=== PATIENT | female | born 1980 | race Caucasian/White ===

== ENCOUNTER 2016-12-07 18:11 | Emergency (ER) | payer OTHER ==
[~2016-12-07] VITALS: Ht 170.2 cm; Wt 99.4 kg
[~2016-12-07 18:11] MED LIST: ASPI-390 PO; FLXHP PO; OXYC-57 PO; PRZ/40 PO; WLLSR150 PO
[2016-12-07 18:21] VITALS: TEMP 37; Ht 170.2 cm; Wt 99.4 kg
[2016-12-07] MEDS ORDERED: PROCHLORPERAZINE 5 MG/ML 2 ML VIAL IV STA (19:35)
[2016-12-07] MEDS ORDERED: DiphenhydrAMINE HCL 50 MG/ML VIAL IV STA (19:35)
[2016-12-07] MEDS ORDERED: KETOROLAC TROMETHAMINE 30 MG/ML VIAL IV STA (19:35)
[2016-12-07] MEDS ORDERED: SODIUM CHLORIDE 0.9% 1000ML 1,000 ML IV ONE (19:45)
[2016-12-07] MEDS ORDERED: PANTOprazole INJ 40 MG in SYRINGE 0 ML IV ONE (19:45)
[2016-12-07] MEDS ORDERED: GI COCKTAIL PO ONE (19:45)
[2016-12-07 20:03] LABS: BASO % 0.5 %; BASO ABS # 0.05 K/uL (0-0.2); COMPLETE YES; HEMATOCRIT 37.8 % (37-47); IG% 0.4 %; LYMPH % 26.7 %; LYMPH ABS # 2.93 K/uL (1.2-3.4); MEAN CELL VOLUME 84.4 fL (80-100); MEAN CORPUSCULAR HEMOGLOBIN 27.5 pg (25-34); MEAN CORPUSCULAR HGB CONC 32.5 g/dl (32-36); MEAN PLATELET VOLUME 9.8 fL (7.4-10.4); MONO % 8.4 %; PLATELET COUNT 281 K/uL (130-400); RED BLOOD COUNT 4.48 M/uL (4.2-5.4); WHITE BLOOD COUNT 10.99 K/uL (4.8-10.8)
[2016-12-07 20:16] LABS: URINE APPEARANCE CLEAR (CLEAR); URINE BILIRUBIN NEG (NEG); URINE COLOR YELLOW; URINE NITRITE NEG (NEG); URINE PH 5.5 (4.5-7.5); URINE SPECIFIC GRAVITY 1.023 (1.000-1.030); UROBILINOGEN NEG (NEG); ZZUR CULT IF INDIC CLEAN CATCH NO
[2016-12-07 20:18] LABS: MANUAL MICROSCOPIC REQUIRED? NO; REVIEW REQ? NO
[2016-12-07 20:21] LABS: BUN/CREATININE RATIO 10.4 (10-20); CALCIUM 8.6 mg/dl (8.5-10.1); CREATININE 0.99 mg/dl (0.60-1.20); MAGNESIUM 2.3 mg/dl (1.8-2.4); POTASSIUM 3.5 mmol/L (3.5-5.1)
[2016-12-07 20:32] LABS: THYROID STIMULATING HORMONE 2.54 uIu/ml (0.300-4.500)
[2016-12-07] MEDS ORDERED: LIDOCAINE HCL 2% VISC SOLN 20 ML UDC ONE (20:45)
[2016-12-07] MEDS ORDERED: ALUMINUM/MAGNESIUM SUSP 30 ML UDC ONE (20:45)
[2016-12-07 20:46] LABS: BENZODIAZEPINE, URINE NEG (NEG); COCAINE,URINE NEG (NEG); PHENCYCLIDINE, URINE NEG (NEG)
--- NOTE | 2016-12-07 22:00 | DIAGNOSTIC IMAGING REPORT ---
ULTRASOUND RIGHT UPPER QUADRANT ABDOMEN CLINICAL HISTORY: Right upper quadrant and epigastric abdominal pain. COMPARISON STUDY: Abdominal CT dated 08/08/2016. TECHNIQUE: Real-time, grayscale, and color flow sonography of the right upper quadrant of the abdomen was performed. Images are reviewed in the transverse and longitudinal planes. FINDINGS: Liver: The liver is normal in size and echotexture. There is no intrahepatic biliary ductal dilatation. The main portal vein is patent. Gallbladder: The gallbladder is surgically absent. The common bile duct measures up to 0.4 cm in diameter. Pancreas: Visualized portions of the pancreatic head and body are normal in appearance. The splenic vein is patent. Right kidney: Survey images of the right kidney demonstrate normal size and echotexture. There is no hydronephrosis. Ascites: None. IMPRESSION: Unremarkable sonographic assessment of the right upper quadrant noting status post cholecystectomy. Electronically signed by: Robinson Carpenter M.D. 12/07/2016 9:58 PM Dictated Date/Time: 12/07/2016 9:57 PM
--- NOTE | 2016-12-07 22:08 | DIAGNOSTIC IMAGING REPORT ---
PA CHEST WITH ABDOMINAL SERIES CLINICAL HISTORY: Epigastric abdominal pain. FINDINGS: A PA chest radiograph is compared to study dated 10/06/2016. The cardiomediastinal silhouette is unremarkable. The lungs and pleural spaces are clear. No pneumothorax is seen. The bony thorax is grossly intact. Supine and erect abdominal radiographs are correlated with abdominal CT dated 08/08/2016. Cholecystectomy clips are seen in the right upper quadrant. There is a nonobstructed abdominal bowel gas pattern noting moderate colonic fecal retention. Note peritoneal free air is seen. There is no radiographic evidence of nephrolithiasis. Calcified pelvic phleboliths are similar to previous. Lumbosacral spine and bony pelvis appear intact. Fusion hardware seen at L5-S1. IMPRESSION: 1. No active disease in the chest. 2. Nonobstructed abdominal bowel gas pattern noting moderate colonic fecal retention. Electronically signed by: Robinson Carpenter M.D. 12/07/2016 10:05 PM Dictated Date/Time: 12/07/2016 10:04 PM
[2016-12-07 22:11] VITALS: BP 117/70; PULSE 63; O2SAT 97
--- NOTE | 2016-12-07 22:45 | EMERGENCY ROOM VISIT NOTE ---
History First contact with patient: 19:28 Chief Complaint: ABDOMINAL PAIN Stated Complaint: STOMACH PAIN W/ PAIN OUT THROUGH BACK Nursing Triage Summary: Patient ambulatory to triage, states "I have really bad pain in my stomach piercing through my back on the right side. My stomach jeong really bad. I threw up bile this morning." History of Present Illness The patient is a 36 year old female who presents to the Emergency Room with complaints of epigastric and right upper quadrant abdominal pain worsening over the past day. The patient states that she had one episode of vomitus this morning that was mostly bile-like fluid. The patient has a long-standing history of abdominal pain, and does follow with gastroenterology. She states that she had an upper endoscopy in the past few weeks that did show some gastritis. She is on Prilosec at home and took several doses of Carafate today without relief of symptoms. She has not had fever or chills. No chest pain, chest tightness, or shortness of breath. The patient is well-known to the emergency department for chronic pain related complaints. She rates her current discomfort a 9/10. Review of Systems More than 10 systems were reviewed and otherwise negative with the exception of history of present illness. Past Medical/Surgical History Medical Problems: (1) Abdominal pain (2) Abnormal uterine bleeding (3) Degenerative disc disease, lumbar (4) DUB (dysfunctional uterine bleeding) (5) History of - pulmonary embolus (6) Left knee surgery (7) Palpitations (8) Postoperative pain (9) Temporomandibular joint disorder Surgical Problems: (1) History of cholecystectomy (2) S/P laparoscopic hysterectomy Family History Cancer Diabetes mellitus Gallbladder disease Heart disease Hypertension Kidney disease Kidney stones Lung disease Social History Smoking Status: Never Smoker Alcohol Use: occasionally Drug Use: none Marital Status: Housing Status: lives with family Occupation Status: employed Current/Historical Medications Scheduled Omeprazole (Prilosec), 40 MG PO DAILY Sucralfate (Carafate), 10 ML PO UD Scheduled PRN Hydrocodone/Acetaminophen 5MG/325MG ([place] 5MG/325MG), 1 TABLET PO Q6H PRN for Pain Allergies Coded Allergies: Tramadol (Verified Allergy, Mild, DID NOT HELP WITH PAIN RELIEF, 12/07/16) Morphine (Verified Adverse Reaction, Unknown, HEADACHE, STIFF NECK, ) Physical Exam Vital Signs Date Time Temp Pulse Resp B/P Pulse Ox O2 Delivery O2 Flow Rate FiO2 12/07/16 22:11 63 14 117/70 97 Room Air 12/07/16 21:00 66 16 104/75 97 Room Air 12/07/16 18:21 37.0 67 18 144/81 98 Room Air Pain Rating (0-10): 2.0 Physical Exam VITALS: Vitals are noted on the nurse's note and reviewed by myself. Vital signs stable. GENERAL: Well-developed, well-nourished, white female, who is in no acute distress and resting comfortably. Patient is cooperative with the examination. HEAD: Normocephalic atraumatic. HEART: Regular rate and rhythm without murmurs gallops or rubs. LUNGS: Clear to auscultation bilaterally without wheezes, rales or rhonchi. No retractions or accessory muscle use. ABDOMEN: Positive normal bowel sounds x 4. Firm pressure while auscultating does not elicit a tenderness response from the patient. Soft palpation causes grimacing and withdrawal from palpation particularly in the epigastrium. No lower abdominal tenderness. No CVA tenderness. MUSCULOSKELETAL: No muscle atrophy, erythema, or edema noted. Full range of motion without joint tenderness in all extremities. No tenderness to palpation. Medical Decision & Procedures ER Provider Diagnostic Interpretation: ULTRASOUND RIGHT UPPER QUADRANT ABDOMEN CLINICAL HISTORY: Right upper quadrant and epigastric abdominal pain. COMPARISON STUDY: Abdominal CT dated 08/08/2016. TECHNIQUE: Real-time, grayscale, and color flow sonography of the right upper quadrant of the abdomen was performed. Images are reviewed in the transverse and longitudinal planes. FINDINGS: Liver: The liver is normal in size and echotexture. There is no intrahepatic biliary ductal dilatation. The main portal vein is patent. Gallbladder: The gallbladder is surgically absent. The common bile duct measures up to 0.4 cm in diameter. Pancreas: Visualized portions of the pancreatic head and body are normal in appearance. The splenic vein is patent. Right kidney: Survey images of the right kidney demonstrate normal size and echotexture. There is no hydronephrosis. Ascites: None. IMPRESSION: Unremarkable sonographic assessment of the right upper quadrant noting status post cholecystectomy. PA CHEST WITH ABDOMINAL SERIES CLINICAL HISTORY: Epigastric abdominal pain. FINDINGS: A PA chest radiograph is compared to study dated 10/06/2016. The cardiomediastinal silhouette is unremarkable. The lungs and pleural spaces are clear. No pneumothorax is seen. The bony thorax is grossly intact. Supine and erect abdominal radiographs are correlated with abdominal CT dated 08/08/2016. Cholecystectomy clips are seen in the right upper quadrant. There is a nonobstructed abdominal bowel gas pattern noting moderate colonic fecal retention. Note peritoneal free air is seen. There is no radiographic evidence of nephrolithiasis. Calcified pelvic phleboliths are similar to previous. Lumbosacral spine and bony pelvis appear intact. Fusion hardware seen at L5-S1. IMPRESSION: 1. No active disease in the chest. 2. Nonobstructed abdominal bowel gas pattern noting moderate colonic fecal retention. Laboratory Results 12/07/16 19:47 Red Blood Count 4.48, Mean Corpuscular Volume 84.4, Mean Corpuscular Hemoglobin 27.5, Mean Corpuscular Hemoglobin Concent 32.5, Mean Platelet Volume 9.8, Neutrophils (%) (Auto) 62.0, Lymphocytes (%) (Auto) 26.7, Monocytes (%) (Auto) 8.4, Eosinophils (%) (Auto) 2.0, Basophils (%) (Auto) 0.5, Neutrophils # (Auto) 6.83, Lymphocytes # (Auto) 2.93, Monocytes # (Auto) 0.92, Eosinophils # (Auto) 0.22, Basophils # (Auto) 0.05 12/07/16 19:47 Test 12/07/16 19:45 12/07/16 19:47 Urine Color YELLOW Urine Appearance CLEAR (CLEAR) Urine pH 5.5 (4.5-7.5) Urine Specific [place] 1.023 (1.000-1.030) Urine Protein NEG (NEG) Urine Glucose (UA) NEG (NEG) Urine Ketones NEG (NEG) Urine Occult Blood NEG (NEG) Urine Nitrite NEG (NEG) Urine Bilirubin NEG (NEG) Urine Urobilinogen NEG (NEG) Urine Leukocyte Esterase NEG (NEG) Urine Test NEG (NEG) Urine Opiates Screen POS (NEG) Urine Methadone, Qualitative NEG (NEG) Urine Barbiturates NEG (NEG) Urine Phencyclidine (PCP) Level NEG (NEG) Ur Amphetamine/Methamphetamine NEG (NEG) MDMA (Ecstasy) Screen POS (NEG) Urine Benzodiazepines Screen NEG (NEG) Urine Cocaine Metabolite NEG (NEG) Urine Marijuana (THC) NEG (NEG) White Blood Count 10.99 K/uL (4.8-10.8) Red Blood Count 4.48 M/uL (4.2-5.4) Hemoglobin 12.3 g/dL (12.0-16.0) Hematocrit 37.8 % (37-47) Mean Corpuscular Volume 84.4 fL (80-100) Mean Corpuscular Hemoglobin 27.5 pg (25-34) Mean Corpuscular Hemoglobin Concent 32.5 g/dl (32-36) Platelet Count 281 K/uL (130-400) Mean Platelet Volume 9.8 fL (7.4-10.4) Neutrophils (%) (Auto) 62.0 % Lymphocytes (%) (Auto) 26.7 % Monocytes (%) (Auto) 8.4 % Eosinophils (%) (Auto) 2.0 % Basophils (%) (Auto) 0.5 % Neutrophils # (Auto) 6.83 K/uL (1.4-6.5) Lymphocytes # (Auto) 2.93 K/uL (1.2-3.4) Monocytes # (Auto) 0.92 K/uL (0.11-0.59) Eosinophils # (Auto) 0.22 K/uL (0-0.5) Basophils # (Auto) 0.05 K/uL (0-0.2) RDW Standard Deviation 39.7 fL (36.4-46.3) RDW Coefficient of Variation 13.1 % (11.5-14.5) Immature Granulocyte % (Auto) 0.4 % Immature Granulocyte # (Auto) 0.04 K/uL (0.00-0.02) Anion Gap 9.0 mmol/L (3-11) Est Creatinine Clear Calc Drug Dose 93.3 ml/min Estimated GFR () 83.8 Estimated GFR (Non- 72.3 BUN/Creatinine Ratio 10.4 (10-20) Calcium Level 8.6 mg/dl (8.5-10.1) Magnesium Level 2.3 mg/dl (1.8-2.4) Total Bilirubin 0.6 mg/dl (0.2-1) Aspartate Amino Transf (AST/SGOT) 18 U/L (15-37) Alanine Aminotransferase (ALT/SGPT) 42 U/L (12-78) Alkaline Phosphatase 76 U/L (45-117) Total Protein 7.5 gm/dl (6.4-8.2) Albumin 3.8 gm/dl (3.4-5.0) Globulin 3.7 gm/dl (2.5-4.0) Albumin/Globulin Ratio 1.0 (0.9-2) Lipase 148 U/L (73-393) Thyroid Stimulating Hormone (TSH) 2.540 uIu/ml (0.300-4.500) Ethyl Alcohol mg/dL < 3.0 mg/dl (0-3) Medications Administered Medications (Trade) Dose Ordered Sig/Diane Route Start Time Stop Time Status Last Admin Dose Admin Sodium Chloride (Nss 1000ml) 1,000 ml @ 999 mls/hr Q1H1M ONCE IV 12/07/16 19:45 12/07/16 20:45 DC 12/07/16 20:53 999 MLS/HR Ketorolac Tromethamine (Toradol Inj) 30 mg NOW STAT IV 12/07/16 19:35 12/07/16 19:39 DC 12/07/16 20:54 30 MG Diphenhydramine HCl (Benadryl Inj) 50 mg NOW STAT IV 12/07/16 19:35 12/07/16 19:39 DC 12/07/16 20:54 50 MG Prochlorperazine Edisylate 10 mg 10 mg NOW STAT IV 12/07/16 19:35 12/07/16 19:39 DC 12/07/16 20:53 10 MG Pantoprazole Sodium/Syringe (Protonix Inj/ Syringe) 10 ml @ 5 mls/min NOW ONCE IV 12/07/16 19:45 12/07/16 19:46 DC 12/07/16 21:06 5 MLS/MIN Al Hydroxide/Mg Hydroxide (Maalox Susp) 30 ml STK-MED ONCE .ROUTE 12/07/16 20:45 12/07/16 20:47 DC 12/07/16 20:52 30 ML Lidocaine HCl (Viscous Lidocaine 2% Soln) 20 ml STK-MED ONCE .ROUTE 12/07/16 20:45 12/07/16 20:47 DC 12/07/16 20:52 20 ML ED Course Physical exam and history were performed. Nursing notes and EMR were reviewed. Patient appears to have epigastric and right upper quadrant abdominal tenderness for the past one day. The patient has a history of chronic abdominal pain. She is driving from [place] to be seen at this facility, and her exam is concerning for malingering. IV access was established and labs were obtained. The patient was hydrated with normal saline. She was given 30 mg IV Toradol, 10 mg IV Compazine, 40 mg IV Protonix, and 50 mg IV Benadryl. She was also given a GI cocktail. X-rays and Ultrasound were ordered. CT scan was considered, however the patient has had several CT scans over the past few years and this was deferred pending further evaluation. The patient was reevaluated multiple times throughout the course of her stay. She did not have worsening of her symptoms while under our care, and felt significantly improved after medication. Her blood work does not show a significantly elevated white blood cell count, anemia, bandemia, or gross electrolyte imbalance. Lipase and transaminases are nondiagnostic. Urinalysis without obvious signs of infection. Her drug of abuse screen was positive for opioids and ecstasy with confirmation pending. The ultrasound does not show evidence of acute findings. X-ray is without obstructive process, but does show constipation. Clinically this is felt to be one of the primary contributors to the patient's discomfort. CT scan was not felt necessary as the patient does not appear to have a surgical abdomen. She does not appear toxic, and is stable for discharge home. The patient will need to follow-up with GI for further care and management. She was otherwise invited back to the ER with any new, worsening, or concerning symptoms. She voiced understanding and rated her discomfort a 2/10 at the time of departure. The chart was completed utilizing [email or web address] Speech Voice Recognition Software. Grammatical errors, random word insertions, pronoun errors, and incomplete sentences are an occasional consequence of this system due to software limitations, ambient noise, and hardware issues. Any formal questions or concerns about the content, text, or information contained within the body of this dictation should be directly addressed to the provider for clarification. . Medical Decision Differential diagnosis: Etiologies such as appendicitis, diverticulitis, PUD, biliary pathology, UTI, pancreatitis, obstruction, mesenteric ischemia, aortic pathology, infections, inflammatory bowel disease, renal colic, as well as others were entertained. Impression Primary Impression: Upper abdominal pain Additional Impression: Constipation Departure Information Dispostion Home / Self-Care Condition GOOD Forms Call Back Authorization, HOME CARE DOCUMENTATION FORM, IMPORTANT VISIT INFORMATION Patient Instructions [facility] Additional Instructions You were seen and evaluated today on an emergency basis only. This is not a substitute for, or an effort to provide, complete comprehensive medical care. It is not possible to recognize and treat all injuries or illnesses in a single emergency department visit. For this reason it is recommended that you followup with your scientific helper for ongoing care and evaluation. Continue your at-home medications as prescribed. Use MiraLAX daily to help with passing of your stool. You may also wish to use [id number] Colace. Together these will help with stool transit. You are welcome to return to the emergency department anytime with new, worsening, or concerning symptoms. Problem Qualifiers
[2016-12-10 16:33] LABS: COD UR NEGATIVE NG/ML (CUTOFF=50); HYDROCOD UR 1480 NG/ML (CUTOFF=50); HYDROMOR UR NEGATIVE NG/ML (CUTOFF=50); MORPHINE UR NEGATIVE NG/ML (CUTOFF=50); NORHYDROCODONE CONF UR 3150 NG/ML (CUTOFF=50); OXYMORPH UR NEGATIVE NG/ML (CUTOFF=50)
[2017-02-22] MEDS ORDERED: IRON PO (12:47)
[2017-02-22] MEDS ORDERED: FLUO40CA8 PO (12:47)
[2017-02-22] MEDS ORDERED: BUPR-79 PO (12:47)
[2017-02-25] MEDS ORDERED: KETO10TA PO (11:08)
[2017-02-25] MEDS ORDERED: OXYC-57 PO (11:08)
[2017-05-17] MEDS ORDERED: FERR325T PO (00:02)
== END 2016-12-07 22:25 | disposition home or self-care (01) ==
LOC: C.EDB 18:12 → C.EDA 22:25
DX: R10.10 Upper abdominal pain, unspecified (principal); K59.00 Constipation, unspecified; Z86.711 Personal history of pulmonary embolism; M51.36 Other intervertebral disc degeneration, lumbar region; N93.8 Other specified abnormal uterine and vaginal bleeding; Z79.899 Other long term (current) drug therapy

== ENCOUNTER 2017-01-05 10:21 | Emergency (ER) | payer OTHER ==
[~2017-01-05] VITALS: Ht 170.2 cm; Wt 102.1 kg
[2017-01-05 10:26] VITALS: Ht 170.2 cm; Wt 102.1 kg
[2017-01-05 11:19] LABS: BASO % 0.9 %; BASO ABS # 0.06 K/uL (0-0.2); COMPLETE YES; EOS % 4.7 %; IG% 0.3 %; LYMPH % 41.2 %; MEAN CELL VOLUME 81.8 fL (80-100); MEAN CORPUSCULAR HGB CONC 33.1 g/dl (32-36); MEAN PLATELET VOLUME 9.8 fL (7.4-10.4); MONO % 10.5 %; NEUT % 42.4 %; PLATELET COUNT 268 K/uL (130-400); WHITE BLOOD COUNT 6.56 K/uL (4.8-10.8)
[2017-01-05 11:23] LABS: URINE APPEARANCE CLOUDY (CLEAR); URINE BILIRUBIN NEG (NEG); URINE COLOR YELLOW; URINE EPITHELIAL CELL AUTO >30 /lpf (0-5); URINE NITRITE NEG (NEG); URINE SPECIFIC GRAVITY 1.029 (1.000-1.030); UROBILINOGEN NEG (NEG); ZZUR CULT IF INDIC CLEAN CATCH NO
[2017-01-05 11:25] LABS: MANUAL MICROSCOPIC REQUIRED? NO; REVIEW REQ? NO
[2017-01-05 11:36] LABS: BUN/CREATININE RATIO 15.4 (10-20); CALCIUM 8.4 mg/dl (8.5-10.1); CREATININE 0.97 mg/dl (0.60-1.20); POTASSIUM 3.7 mmol/L (3.5-5.1)
[2017-01-05 11:39] LABS: ALB/GLOB RATIO 0.9 (0.9-2)
[2017-01-05] MEDS ORDERED: OPTIRAY 320 IV PRN (12:30)
--- NOTE | 2017-01-05 12:39 | DIAGNOSTIC IMAGING REPORT ---
CT ANGIOGRAPHY OF THE CHEST, PULMONARY EMBOLUS PROTOCOL CLINICAL HISTORY: Chest and back pain. COMPARISON STUDY: Chest CT May 12, 2016 and chest radiograph December 07, 2016. TECHNIQUE: Following IV administration of 117 mL of Optiray-[id number], helical axial images of the chest were obtained utilizing the pulmonary embolus protocol. Maximal intensity projections and sagittal and coronal reformats were viewed on an independent 3D workstation. IV contrast was administered without complication. CT DOSE: 536.09 mGy.cm FINDINGS: No pulmonary emboli are identified. There is no evidence of thoracic aortic dissection. The size of the heart is at the upper limits of normal. There is no pericardial effusion. There are no enlarged thoracic lymph nodes. There are trace bilateral pleural effusions. The central airways are patent. There is no consolidation to suggest pneumonia. The gallbladder surgically absent. Visualized portions of the upper abdomen are unremarkable. IMPRESSION: 1. No pulmonary emboli identified. 2. Trace bilateral pleural effusions. Electronically signed by: Xavier Hill M.D. 01/05/2017 12:38 PM Dictated Date/Time: 01/05/2017 12:33 PM
[2017-01-05 12:41] LABS: INR 0.9 (0.9-1.1)
[2017-01-05 12:57] VITALS: TEMP 36.8
[2017-01-05] MEDS ORDERED: LIDOCAINE HCL 2% VISC SOLN 20 ML UDC PO STA (13:13)
[2017-01-05] MEDS ORDERED: ALUMINUM/MAGNESIUM SUSP 30 ML UDC PO STA (13:13)
--- NOTE | 2017-01-05 13:48 | DIAGNOSTIC IMAGING REPORT ---
ULTRASOUND VENOUS DOPPLER LWR EXT BILA CLINICAL HISTORY: Bilateral lower leg pain. COMPARISON STUDY: 09/13/2015 FINDINGS: Real-time and color flow Doppler imaging were performed. Flow was seen within the femoral, popliteal and calf veins with no intraluminal thrombus demonstrated. The saphenous vein is patent. IMPRESSION: No evidence of lower extremity DVT. Electronically signed by: Asaf Patino M.D. 01/05/2017 1:47 PM Dictated Date/Time: 01/05/2017 1:47 PM
[2017-01-05 14:42] VITALS: BP 122/70; PULSE 63; O2SAT 98
--- NOTE | 2017-01-05 18:56 | EMERGENCY ROOM VISIT NOTE ---
History Report prepared by Leeleeiblina: Pattie Aguirre Under the Supervision of: Dr. Wayne Goldberg M.D. First contact with patient: 11:59 Chief Complaint: ABDOMINAL PAIN Stated Complaint: FLUTTERING CHEST, HEADACHE, STOMACH PAIN Nursing Triage Summary: Pt reports diffuse abd pain and fluttering chest. Pt states seen by Dr. Stanley today for f/u for "inflammed stomach" and had tenderness on left side of abd when palpated. Pt states fluttering in chest for a couple days. Reports hx of PE's. Intermittent SOB and lightheadedness. Also reports h/a with "sharp pains" that started yesterday. History of Present Illness The patient is a 36 year old female who presents to the Emergency Room with complaints of intermittent chest heaviness over the past several days. Since then, she has also noticed shortness of breath, heart palpitations that she describes as fluttering, and sharp pain in the middle of her back that radiates outwards. She also complains of some lower leg pain over the past week or so. She has not noticed any leg swelling. She notes that she has been feeling very tired recently and has been sleeping about 14 hours a day. The patient has a history of PEs in 2013 and states that her current symptoms feel similar to when she was diagnosed with PEs. She is unsure of the cause of the blood clots but states that she was taken off of control pills at that time. The patient had a hysterectomy over a year ago. The patient has a history of chronic abdominal pain and followed up with Dr. Stanley today. She had some soreness to the left side of her abdomen and he was concerned about her kidney or possible adhesions from her previous abdominal surgeries. She notes that she has had some nausea and diarrhea for the past couple of days. She is currently on Protonix and was recently put on Bentyl. Denies recent falls/injuries, fever , vomiting, black or bloody stool, or other complaints. She has not been on any long trips recently. Source of History: patient Onset: several days ago Position: chest Quality: other (heavy) Timing: other (persistent) Associated Symptoms: + SOB, + abdominal pain, + back pain, + diarrhea, No fevers, No hematochezia, No melena, No vomiting Note: Other symptoms: heart palpitations (fluttering), lower leg pain Review of Systems See HPI for pertinent positives & negatives. A total of 10 systems reviewed and were otherwise negative. Past Medical & Surgical Medical Problems: (1) Abdominal pain (2) Abnormal uterine bleeding (3) Degenerative disc disease, lumbar (4) DUB (dysfunctional uterine bleeding) (5) History of - pulmonary embolus (6) Left knee surgery (7) Palpitations (8) Postoperative pain (9) Temporomandibular joint disorder Surgical Problems: (1) History of cholecystectomy (2) S/P laparoscopic hysterectomy Family History Cancer Diabetes mellitus Gallbladder disease Heart disease Hypertension Kidney disease Kidney stones Lung disease Social History Smoking Status: Never Smoker Alcohol Use: occasionally Drug Use: none Marital Status: Housing Status: lives with family Occupation Status: employed Current/Historical Medications Scheduled Omeprazole (Prilosec), 40 MG PO DAILY Sucralfate (Carafate), 10 ML PO UD Scheduled PRN Hydrocodone/Acetaminophen 5MG/325MG ([place] 5MG/325MG), 1 TABLET PO Q6H PRN for Pain Allergies Coded Allergies: Tramadol (Verified Allergy, Mild, DID NOT HELP WITH PAIN RELIEF, 01/05/17) Morphine (Verified Adverse Reaction, Unknown, HEADACHE, STIFF NECK, ) Physical Exam Vital Signs Date Time Temp Pulse Resp B/P Pulse Ox O2 Delivery O2 Flow Rate FiO2 01/05/17 14:42 63 18 122/70 98 Room Air 01/05/17 12:57 36.8 63 16 108/68 98 Room Air 01/05/17 10:26 37.0 66 18 118/83 98 Room Air Physical Exam Constitutional: Vital signs reviewed. Eyes: Pupils are equal round reactive to light. Conjunctiva are noninjected. ENT: Pharynx is clear without erythema or exudate. Mucous membranes are moist. Neck supple without meningeal signs. Respiratory: Clear to auscultation bilaterally. Breath sounds are equal bilaterally. Cardiovascular: Regular rate and rhythm. No rubs or gallops. GI: Soft, nondistended, epigastric tenderness, no guarding. Bowel sounds are present. Musculoskeletal: No peripheral edema. No lower extremity tenderness. No CVA tenderness. No midline tenderness to the thoracic spine. Integumentary: No cyanosis. Neurological: The patient is awake and alert. No focal deficits. Psychiatric: Normal affect. Medical Decision & Procedures ER Provider Diagnostic Interpretation: Radiology results as stated below per my review and the radiologist's interpretation: CT ANGIOGRAPHY OF THE CHEST, PULMONARY EMBOLUS PROTOCOL CLINICAL HISTORY: Chest and back pain. COMPARISON STUDY: Chest CT May 12, 2016 and chest radiograph December 07, 2016. TECHNIQUE: Following IV administration of 117 mL of Optiray-[id number], helical axial images of the chest were obtained utilizing the pulmonary embolus protocol. Maximal intensity projections and sagittal and coronal reformats were viewed on an independent 3D workstation. IV contrast was administered without complication. CT DOSE: 536.09 mGy.cm FINDINGS: No pulmonary emboli are identified. There is no evidence of thoracic aortic dissection. The size of the heart is at the upper limits of normal. There is no pericardial effusion. There are no enlarged thoracic lymph nodes. There are trace bilateral pleural effusions. The central airways are patent. There is no consolidation to suggest pneumonia. The gallbladder surgically absent. Visualized portions of the upper abdomen are unremarkable. IMPRESSION: 1. No pulmonary emboli identified. 2. Trace bilateral pleural effusions. Electronically signed by: Xavier Hill M.D. 01/05/2017 12:38 PM Dictated Date/Time: 01/05/2017 12:33 PM ULTRASOUND VENOUS DOPPLER LWR EXT BILA CLINICAL HISTORY: Bilateral lower leg pain. COMPARISON STUDY: 09/13/2015 FINDINGS: Real-time and color flow Doppler imaging were performed. Flow was seen within the femoral, popliteal and calf veins with no intraluminal thrombus demonstrated. The saphenous vein is patent. IMPRESSION: No evidence of lower extremity DVT. Electronically signed by: Asaf Patino M.D. 01/05/2017 1:47 PM Dictated Date/Time: 01/05/2017 1:47 PM Laboratory Results 01/05/17 11:05 Red Blood Count 4.40, Mean Corpuscular Volume 81.8, Mean Corpuscular Hemoglobin 27.0, Mean Corpuscular Hemoglobin Concent 33.1, Mean Platelet Volume 9.8, Neutrophils (%) (Auto) 42.4, Lymphocytes (%) (Auto) 41.2, Monocytes (%) (Auto) 10.5, Eosinophils (%) (Auto) 4.7, Basophils (%) (Auto) 0.9, Neutrophils # (Auto ) 2.78, Lymphocytes # (Auto) 2.70, Monocytes # (Auto) 0.69, Eosinophils # (Auto ) 0.31, Basophils # (Auto) 0.06 01/05/17 11:05 Test 01/05/17 10:00 01/05/17 11:05 01/05/17 14:10 Urine Color YELLOW Urine Appearance CLOUDY (CLEAR) Urine pH 5.0 (4.5-7.5) Urine Specific [place] 1.029 (1.000-1.030) Urine Protein NEG (NEG) Urine Glucose (UA) NEG (NEG) Urine Ketones NEG (NEG) Urine Occult Blood NEG (NEG) Urine Nitrite NEG (NEG) Urine Bilirubin NEG (NEG) Urine Urobilinogen NEG (NEG) Urine Leukocyte Esterase NEG (NEG) Urine WBC (Auto) 1-5 /hpf (0-5) Urine RBC (Auto) 0-4 /hpf (0-4) Urine Hyaline Casts (Auto) 1-5 /lpf (0-5) Urine Epithelial Cells (Auto) >30 /lpf (0-5) Urine Bacteria (Auto) NEG (NEG) White Blood Count 6.56 K/uL (4.8-10.8) Red Blood Count 4.40 M/uL (4.2-5.4) Hemoglobin 11.9 g/dL (12.0-16.0) Hematocrit 36.0 % (37-47) Mean Corpuscular Volume 81.8 fL (80-100) Mean Corpuscular Hemoglobin 27.0 pg (25-34) Mean Corpuscular Hemoglobin Concent 33.1 g/dl (32-36) Platelet Count 268 K/uL (130-400) Mean Platelet Volume 9.8 fL (7.4-10.4) Neutrophils (%) (Auto) 42.4 % Lymphocytes (%) (Auto) 41.2 % Monocytes (%) (Auto) 10.5 % Eosinophils (%) (Auto) 4.7 % Basophils (%) (Auto) 0.9 % Neutrophils # (Auto) 2.78 K/uL (1.4-6.5) Lymphocytes # (Auto) 2.70 K/uL (1.2-3.4) Monocytes # (Auto) 0.69 K/uL (0.11-0.59) Eosinophils # (Auto) 0.31 K/uL (0-0.5) Basophils # (Auto) 0.06 K/uL (0-0.2) RDW Standard Deviation 41.4 fL (36.4-46.3) RDW Coefficient of Variation 13.8 % (11.5-14.5) Immature Granulocyte % (Auto) 0.3 % Immature Granulocyte # (Auto) 0.02 K/uL (0.00-0.02) Prothrombin Time 10.0 SECONDS (9.0-12.0) Prothromb Time International Ratio 0.9 (0.9-1.1) Activated Partial Thromboplast Time 25.1 SECONDS (21.0-31.0) Partial Thromboplastin Ratio 1.0 D-Dimer 1440 ug/L FEU (0-500) Anion Gap 6.0 mmol/L (3-11) Est Creatinine Clear Calc Drug Dose 96.6 ml/min Estimated GFR () 85.9 Estimated GFR (Non- 74.1 BUN/Creatinine Ratio 15.4 (10-20) Calcium Level 8.4 mg/dl (8.5-10.1) Total Bilirubin 0.3 mg/dl (0.2-1) Aspartate Amino Transf (AST/SGOT) 19 U/L (15-37) Alanine Aminotransferase (ALT/SGPT) 38 U/L (12-78) Alkaline Phosphatase 83 U/L (45-117) Total Protein 7.2 gm/dl (6.4-8.2) Albumin 3.5 gm/dl (3.4-5.0) Globulin 3.7 gm/dl (2.5-4.0) Albumin/Globulin Ratio 0.9 (0.9-2) Lipase 143 U/L (73-393) Troponin I < 0.015 ng/ml (0-0.045) Laboratory results as reviewed by me. Medications Administered Medications (Trade) Dose Ordered Sig/Diane Route Start Time Stop Time Status Last Admin Dose Admin Lidocaine HCl (Viscous Lidocaine 2% Soln) 10 ml NOW STAT PO 01/05/17 13:13 01/05/17 13:14 DC 01/05/17 14:06 10 ML Al Hydroxide/Mg Hydroxide (Maalox Susp) 30 ml NOW STAT PO 01/05/17 13:13 01/05/17 13:14 DC 01/05/17 14:06 30 ML ECG Indication: palpitations Rate (beats per minute): 54 Rhythm: sinus bradycardia Findings: no acute ischemic change, no ectopy ED Course 1206: The patient was evaluated in room A12A. A complete history and physical exam was performed. 1251: I reassessed the patient and updated her on results so far. 1308: The patient requested pain medication for her abdominal pain. 1313: Ordered Maalox Susp 30ml PO, Lidocaine HCl 10 ml PO. 1429: I reassessed the patient and updated her on results so far. We are waiting on a second troponin. 1505:Upon reevaluation, the patient was feeling better. I discussed camilo's final test results and return instructions with her. The patient verbalized agreement of the treatment plan. She was discharged home. Medical Decision Us is a 36-year-old female presents with abdominal pain, chest pain, back pain and shortness of breath with leg pain. Differential diagnosis includes PE, DVT , acute coronary syndrome, gastritis, peptic ulcer disease. I did perform a limited focused review of portions of the patient's old chart on the electronic medical record. She was here December 07 for epigastric and right upper quadrant abdominal pain. She is noted to have a long standing history of abdominal pain and an EGD that showed gastritis. She had an ultrasound of the right upper quadrant that was unremarkable. I did evaluate the patient as noted above. The patient is presenting with chest and back pain with shortness of breath which she states is consistent with her prior presentation of pulmonary embolism. She is not currently on any blood thinners. She also complains of abdominal pain but this is chronic in nature and she saw her [facility] today for this. IV access was established. The patient was placed on a continuous environmental monitoring specialist. I did treat the patient with a GI cocktail for her abdominal pain. I did order and personally review the patient's 12-lead EKG as described above. There are no acute ischemic changes. I did order and review the patient's blood work as noted in the electronic medical record. D-dimer is elevated. Troponin is negative 2. After discussion with the patient, I did order a CT of the chest. I did review the images myself as well as the radiology report as described above. There is no evidence of pulmonary embolism. I did order Doppler ultrasounds of the lower extremities because of her leg pain and elevated d- dimer. These were negative for DVT. I did reassess patient. I did discuss the test results with the patient. I discussed the limitations of the workup done here in the emergency department and recommended close follow up with her personnel interviewer for further evaluation and possible outpatient cardiac stress testing. She was discharged in good condition and given return instructions as outlined below. Impression Primary Impression: Acute chest pain Additional Impressions: Chronic bilateral upper abdominal pain Acute thoracic back pain Scribe Attestation The scribe's documentation has been prepared under my direct and personally reviewed by me in its entirety. I confirm that the note above accurately reflects all work, treatment, procedures, and medical decision making performed by me. Departure Information Dispostion Home / Self-Care Referrals Kate Clark M.D. (PCP) Patient Instructions ED Abd Pain Cause Unkn Fem Ch, ED Chest Pain Atypical Unkn Cause Additional Instructions You have been examined and treated today on an emergency basis only. This is not a substitute for, or an effort to provide, complete comprehensive medical care. It is impossible to recognize and treat all injuries or illnesses in a single emergency department visit. It is therefore important that you follow up closely with your physician. Call as soon as possible for an appointment. Return for worsening symptoms or if you develop fever, vomiting, or any other concerning symptoms. Problem Qualifiers Additional Impressions: Acute thoracic back pain Back pain laterality: midline Qualified Codes: M54.6 - Pain in thoracic spine
[2017-01-05] MEDS ORDERED: CRFL PO (19:27)
[2017-01-05] MEDS ORDERED: HYDR-5688 PO (19:27)
[2017-02-22] MEDS ORDERED: FLUO40CA8 PO (12:47)
[2017-02-22] MEDS ORDERED: BUPR-79 PO (12:47)
[2017-02-22] MEDS ORDERED: IRON PO (12:47)
[2017-02-25] MEDS ORDERED: OXYC-57 PO (11:08)
[2017-02-25] MEDS ORDERED: KETO10TA PO (11:08)
[2017-05-17] MEDS ORDERED: FERR325T PO (00:02)
== END 2017-01-05 15:11 | disposition home or self-care (01) ==
LOC: C.EDB 10:22 → C.EDA 15:11
DX: R07.9 Chest pain, unspecified (principal); R10.10 Upper abdominal pain, unspecified; M54.6 Pain in thoracic spine; M51.36 Other intervertebral disc degeneration, lumbar region; Z86.711 Personal history of pulmonary embolism; Z83.3 Family history of diabetes mellitus; Z82.49 Family history of ischemic heart disease and other diseases of the circulatory system

== ENCOUNTER → 2017-02-25 | Day surgery (SDC) | payer OTHER ==
[2017-02-22 12:49] VITALS: Ht 170.2 cm; Wt 102.3 kg
[~2017-02-25] VITALS: Ht 170.2 cm; Wt 102.3 kg
[~2017-02-25] MED LIST changes: -ASPI-390 PO; +ATROPINE SULFATE 0.1 MG/ML 5ML SYR IV PRN; +BNT/10 PO; +BUPIVACAINE/EPINEPHRINE 0.25% 1:200,000 30 ML VIAL ONE; +BUPR-79 PO; +CEFAZOLIN 2000 MG/60 ML D5W IV SCH; +CYCL10TA6 PO; +DEXAMETHASONE SOD INJ 4 MG/ML VIAL ONE; +EpHEDrine SULFATE INJ 50 MG/ML AMP IV PRN; +EpINEphrine INJ 1MG/ML AMP 1 MG/ML AMP ONE; +FENTANYL CITRATE INJ 50 MCG/1 ML 2 ML VIAL ONE; +FERR1TAB62 PO; +FLNIN/; +FLUO40CA8 PO; +FLX10 PO; -FLXHP PO; +HYDR-5688 PO; +IRON PO; +KETO10TA PO; +LACTATED RINGER'S 1000ML 1,000 ML IV SCH; +LIDOCAINE HCL 1% MPF 2 ML VIAL ONE; +LIDOCAINE HCL 2% 2 ML VIAL (20MG/ML) ONE; +LORA0.5T12 PO; +MIDAZOLAM HCL 1 MG/ML 2ML VIAL ONE; +OMEP40CA41 PO; +ONDANSETRON INJ 2 MG/ML 2 ML VIAL IV PRN; +ONDANSETRON INJ 2 MG/ML 2 ML VIAL ONE; +OXYC1TAB3 PO; +OXYCODONE/ACETAMINOPHEN 5-325 TAB ONE; +OXYCODONE/ACETAMINOPHEN 5-325 TAB PO PRN; +PRED20TA2 PO; +PROM25TA16 PO; +PROPOFOL IV EMULSION 10 MG/ML 20 ML VIAL IV ONE; +ROPIVACAINE 0.5% 5 MG/ML 30 ML VIAL ONE; +SODIUM CHLORIDE 0.9% 1000ML 1,000 ML IV SCH
--- NOTE | 2017-02-25 08:40 | History & Physical Bridge - SC ---
H&P Re-Evaluation Bridge Note: I have examined the patient, reviewed the History & Physical and in the interval since the performance of the History & Physical I have noted the following changes of clinical significance: No changes noted
--- NOTE | 2017-02-25 11:10 | Discharge Instructions-SurgCtr ---
Discharge Instructions Date of Service Feb 25, 2017. Visit Reason for Visit: Impingement Syndrome Of Shoulder Region Discharge Discharge Diagnosis / Problem: SAME ABOVE Discharge Goals Goal(s): Decrease discomfort, Improve function Activity Recommendations Activity Limitations: as noted below Lifting Limitations: until after follow-up appointment Exercise/Sports Limitations: until after follow-up appointment Anesthesia . Post Anesthesia Instructions: If you have had General Anesthesia or IV Sedation: * Do not drive today. * Resume driving when surgeon permits. * Do not make important decisions or sign legal documents today. * Call surgeon for: 1. Temperature elevations greater than 101 degrees F. 2. Uncontrollable pain. 3. Excessive bleeding. 4. Persistent nausea and vomiting. 5. Medication intolerance (nausea, vomiting or rash). * For nausea and vomiting use only clear liquids such as: tea, soda, bouillon until nausea subsides, then gradually increase diet as tolerated. * If you have any concerns or questions, call your surgeon's office. If physician is unavailable and it is an emergency, call 911 or go to the nearest emergency room. . Instructions / Follow-Up Instructions / Follow-Up MEDICATIONS: * Resume previous medications unless instructed otherwise by your surgeon. * Always take pain medication on a full stomach or with food to avoid upset stomach. * Do not drink alcohol or drive while taking narcotics. * Ibuprofen or Tylenol may be taken if narcotic not needed. SPECIAL CARE INSTRUCTIONS: __ None _X_ Keep extremity elevated and iced x 48 hours; apply ice 20-30 minutes 8-10 times/day. May remove at night. _X_ Sling (WEAR NEEDED FOR COMFORT) __24 hrs/day __ Remove at night __ Shoulder Immobilizer __ 24 hrs/day __ Remove at night _X_ Dressing __ Maintain until seen in office, may shower with plastic over site _X_ Remove dressings in 24-48 hours and then may shower _X_ Cover incisions with band-aids after showering __ Do not remove steri-strips Call physician if chills or temperature rises above 102 degrees or pain unrelieved by prescribed pain medications at . . Diet Recommendations Home Diet: no limitations Fluid Restriction: None Procedures Procedures Performed: Right Shoulder Arthroscopy, Subacromial Decompression, Distal Clavicle Resection, Biceps Tenotomy Pending Studies Studies pending at discharge: no Work Instructions Return To Work: after follow-up Lifting Limitations: INCREASE TOLERATED Medical Emergencies . Who to Call and When: Medical Emergencies: If at any time you feel your situation is an emergency, please call 911 immediately. . Non-Emergent Contact Non-Emergency issues call your: Primary Care Provider Call Non-Emergent contact if: you have a fever, temperature is above 101.5 . . "Provider Documentation" section prepared by Akshat Olivia.
[2017-02-25] MEDS: FENTANYL CITRATE INJ 50 MCG/1 ML 2 ML VIAL IV PRN ×3 (11:22→11:34)
[2017-02-25 12:12] VITALS: TEMP 36.7
[2017-02-25 12:33] VITALS: BP 109/72; PULSE 63; O2SAT 96
--- NOTE | 2017-02-25 12:48 | Anesthesia Progress Nt - [facility] ---
Anesthesia Post Op Note Date & Time Feb 25, 2017 at 12:47 Vital Signs Pain Intensity: 4 Vital Signs Past 12 Hours Date Time Temp Pulse Resp B/P Pulse Ox O2 Delivery O2 Flow Rate FiO2 02/25/17 12:33 63 16 109/72 96 Room Air 02/25/17 12:12 36.7 63 18 116/76 96 Room Air 02/25/17 11:43 70 17 02/25/17 11:43 69 17 93 02/25/17 11:42 37.1 96 Room Air 02/25/17 11:41 139/80 02/25/17 11:38 73 21 02/25/17 11:38 74 21 97 02/25/17 11:35 124/78 02/25/17 11:33 73 22 02/25/17 11:33 72 22 98 02/25/17 11:32 72 19 100 02/25/17 11:32 73 19 02/25/17 11:30 138/73 02/25/17 11:27 72 17 100 02/25/17 11:27 72 17 02/25/17 11:26 70 18 02/25/17 11:26 70 18 142/74 100 02/25/17 11:21 69 18 100 02/25/17 11:21 68 18 02/25/17 11:20 121/88 02/25/17 11:16 64 18 02/25/17 11:16 63 18 100 02/25/17 11:15 121/65 02/25/17 11:11 63 10 99 02/25/17 11:11 65 10 02/25/17 11:10 62 10 103/77 100 02/25/17 11:10 64 10 02/25/17 11:08 36.8 69 20 137/73 99 Mask 7 02/25/17 11:06 137/73 02/25/17 09:45 74 0 02/25/17 09:44 71 0 02/25/17 09:40 110/64 02/25/17 09:39 77 33 98 02/25/17 09:39 70 02/25/17 09:35 127/70 02/25/17 09:34 68 19 100 02/25/17 09:34 68 02/25/17 09:30 117/71 02/25/17 09:29 65 02/25/17 09:29 63 8 99 02/25/17 09:25 125/66 02/25/17 09:24 66 02/25/17 09:24 66 10 99 02/25/17 09:20 121/70 02/25/17 09:19 66 02/25/17 09:19 64 7 100 02/25/17 09:15 114/79 02/25/17 09:14 67 02/25/17 09:14 66 12 100 02/25/17 09:10 116/79 02/25/17 09:09 63 02/25/17 09:09 61 17 100 02/25/17 09:05 114/76 02/25/17 09:04 22 129/79 100 Mask 4 02/25/17 09:04 64 02/25/17 09:04 67 10 100 02/25/17 09:00 118/79 02/25/17 08:59 65 02/25/17 08:59 64 15 100 02/25/17 08:55 64 20 121/84 100 Room Air 02/25/17 08:55 129/79 02/25/17 08:54 63 02/25/17 08:54 61 15 100 02/25/17 08:50 124/78 02/25/17 08:49 72 18 02/25/17 08:49 70 20 121/84 100 Room Air 02/25/17 08:09 36.8 72 18 122/83 98 Room Air Notes Mental Status: alert / awake / arousable, participated in evaluation Pt Amnestic to Procedure: Yes Nausea / Vomiting: adequately controlled Pain: adequately controlled Airway Patency, RR, SpO2: stable & adequate BP & HR: stable & adequate Hydration State: stable & adequate Anesthetic Complications: no major complications apparent
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
--- NOTE | 2017-02-25 13:28 | [facility] Post Operative Brief Note ---
Immediate Operative Summary Operative Date Feb 25, 2017. Pre-Operative Diagnosis Right Shoulder Impingement Syndrome Post-Operative Diagnosis Same Procedure(s) Performed Right Shoulder Arthroscopy, Subacromial Decompression, Distal Clavicle Resection, Biceps Tenotomy Surgeon Dr. Travis Backer Up Surgeon(s) Logan Olivia PA-C Estimated Blood Loss 2 ml Findings as above Specimens None Complication(s) None Disposition Recovery Room / PACU
== END | disposition home or self-care (01) ==
LOC: X.SURG 07:58
PROVIDERS: ATTEND Orthopaedic Surgery
DX: M75.41 Impingement syndrome of right shoulder (principal); M75.21 Bicipital tendinitis, right shoulder; M19.011 Primary osteoarthritis, right shoulder; M75.81 Other shoulder lesions, right shoulder; I26.99 Other pulmonary embolism without acute cor pulmonale; K21.9 Gastro-esophageal reflux disease without esophagitis; F32.9 Major depressive disorder, single episode, unspecified; Z98.890 Other specified postprocedural states; Z90.710 Acquired absence of both cervix and uterus

== ENCOUNTER 2017-03-21 22:59 | Emergency (ER) | payer OTHER ==
[~2017-03-21] VITALS: Ht 170.2 cm; Wt 103.1 kg
[~2017-03-21 22:59] MED LIST changes: -ATROPINE SULFATE 0.1 MG/ML 5ML SYR IV PRN; -BNT/10 PO; -BUPIVACAINE/EPINEPHRINE 0.25% 1:200,000 30 ML VIAL ONE; -CEFAZOLIN 2000 MG/60 ML D5W IV SCH; -CYCL10TA6 PO; -DEXAMETHASONE SOD INJ 4 MG/ML VIAL ONE; -EpHEDrine SULFATE INJ 50 MG/ML AMP IV PRN; -EpINEphrine INJ 1MG/ML AMP 1 MG/ML AMP ONE; -FENTANYL CITRATE INJ 50 MCG/1 ML 2 ML VIAL ONE; -FERR1TAB62 PO; -FLNIN/; -FLX10 PO; -HYDR-5688 PO; -LACTATED RINGER'S 1000ML 1,000 ML IV SCH; -LIDOCAINE HCL 1% MPF 2 ML VIAL ONE; -LIDOCAINE HCL 2% 2 ML VIAL (20MG/ML) ONE; -LORA0.5T12 PO; -MIDAZOLAM HCL 1 MG/ML 2ML VIAL ONE; -OMEP40CA41 PO; -ONDANSETRON INJ 2 MG/ML 2 ML VIAL IV PRN; -ONDANSETRON INJ 2 MG/ML 2 ML VIAL ONE; -OXYC1TAB3 PO; -OXYCODONE/ACETAMINOPHEN 5-325 TAB ONE; -OXYCODONE/ACETAMINOPHEN 5-325 TAB PO PRN; -PRED20TA2 PO; -PROM25TA16 PO; -PROPOFOL IV EMULSION 10 MG/ML 20 ML VIAL IV ONE; -PRZ/40 PO; -ROPIVACAINE 0.5% 5 MG/ML 30 ML VIAL ONE; -SODIUM CHLORIDE 0.9% 1000ML 1,000 ML IV SCH; -WLLSR150 PO
[2017-03-21 23:06] VITALS: TEMP 36.7; Ht 170.2 cm; Wt 103.1 kg
[2017-03-22] MEDS ORDERED: CYCLOBENZAPRINE HCL 5 MG TAB PO ONE
[2017-03-22] MEDS ORDERED: OXYCODONE/ACETAMINOPHEN 5-325 TAB PO STA (00:27)
[2017-03-22] MEDS ORDERED: PRED20TA2 PO (01:50)
[2017-03-22] MEDS ORDERED: CYCL10TA6 PO (01:50)
[2017-03-22 01:57] VITALS: BP 116/73; PULSE 94; O2SAT 97
--- NOTE | 2017-03-22 05:54 | EMERGENCY ROOM VISIT NOTE ---
History First contact with patient: 23:35 Chief Complaint: SHOULDER PAIN Stated Complaint: RT SHOULDER PAIN GOING DOWN ARM History of Present Illness The patient is a 36 year old female who presents to the Emergency Room with complaints of pain in her right bicep area for the past several days. The patient had right shoulder surgery performed by Dr. Travis about one month ago. She had been doing well up until the past several days. The patient states that she has Percocet at home from the surgery, that she has been taking without relief. The patient does not have new injury or trauma. No numbness or paresthesias. She will occasionally have pain shooting down into her hand. She has not had fever or significant bruising. She does have good range of motion of the shoulder and elbow. The patient rates her discomfort a 9/10. She states that she did schedule an appointment with orthopedics in 2 days, but could not wait for the appointment. Review of Systems More than 10 systems were reviewed and otherwise negative with the exception of history of present illness. Past Medical/Surgical History Medical Problems: (1) Abdominal pain (2) Abnormal uterine bleeding (3) Degenerative disc disease, lumbar (4) DUB (dysfunctional uterine bleeding) (5) History of - pulmonary embolus (6) Left knee surgery (7) Palpitations (8) Postoperative pain (9) Temporomandibular joint disorder Surgical Problems: (1) History of cholecystectomy (2) S/P laparoscopic hysterectomy Family History Cancer Diabetes mellitus Gallbladder disease Heart disease Hypertension Kidney disease Kidney stones Lung disease Social History Smoking Status: Never Smoker Alcohol Use: occasionally Drug Use: none Marital Status: Housing Status: lives with family Occupation Status: employed Current/Historical Medications Scheduled Bupropion (Wellbutrin Sr), 150 MG PO BID Cyclobenzaprine Hcl (Flexeril), 10 MG PO TID Ferrous Sulfate (Ferrous Sulfate), 325 MG PO BID Fluoxetine (Prozac), 40 MG PO QPM Omeprazole (Prilosec), 40 MG PO QPM Prednisone (Prednisone Tab), 0 PO DAILY Scheduled PRN Oxycodone/Acetaminophen 5MG/325MG (Percocet 5MG/325MG), 1-2 TABLETS PO Q6 PRN for Pain Allergies Coded Allergies: Tramadol (Verified Adverse Reaction, Mild, DID NOT HELP WITH PAIN RELIEF, 03/21/17) Morphine (Verified Adverse Reaction, Unknown, HEADACHE, STIFF NECK, 03/21/17 ) Physical Exam Vital Signs Date Time Temp Pulse Resp B/P Pulse Ox O2 Delivery O2 Flow Rate FiO2 03/22/17 01:57 94 16 116/73 97 03/22/17 00:23 81 16 127/78 96 Room Air 03/21/17 23:06 36.7 71 18 143/95 98 Room Air Pain Rating (0-10): 3.0 Physical Exam VITALS: Vitals are noted on the nurse's note and reviewed by myself. Vital signs stable. GENERAL: Well-developed, well-nourished, white female, who is in no acute distress and resting comfortably. Patient is cooperative with the examination. HEAD: Normocephalic atraumatic. NECK: Supple without nuchal rigidity. No lymphadenopathy. No thyromegaly. Cervical spine is nontender. HEART: Regular rate and rhythm without murmurs gallops or rubs. LUNGS: Clear to auscultation bilaterally without wheezes, rales or rhonchi. No retractions or accessory muscle use. MUSCULOSKELETAL: No muscle atrophy, erythema, or edema noted. No significant palpable tenderness appreciated over the right upper extremity or right shoulder. Neurovascularly she is intact. No palpable cords. 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 She does have some hesitation with abduction and external rotation at the shoulder. Full range of motion to the elbow and wrist. NEURO: Patient was alert and oriented to person place and time. CN II through XII grossly intact. Deep tendon reflexes 2+ throughout. No focal neurological deficits Medical Decision & Procedures ER Provider Diagnostic Interpretation: Preliminary Findings Only See Final Report For Complete Findings US EXTREMITY: No discrete collection or mass in the right upper arm. Medications Administered Medications (Trade) Dose Ordered Sig/Diane Route Start Time Stop Time Status Last Admin Dose Admin Prednisone (PredniSONE TAB) 40 mg NOW STAT PO 03/21/17 23:47 03/21/17 23:49 DC 03/22/17 00:00 40 MG Cyclobenzaprine HCl (Flexeril Tab) 10 mg NOW ONCE PO 03/22/17 00:00 03/22/17 00:01 DC 03/22/17 00:00 10 MG Oxycodone/ Acetaminophen (Percocet 5-325mg Tab) 1 tab NOW STAT PO 03/22/17 00:27 03/22/17 00:28 DC 03/22/17 00:32 1 TAB ED Course Physical exam and history were performed. Nursing notes and EMR were reviewed. Patient appears to have reports of right upper extremity pain for the past several days. She did have surgery last month and does not have new injury or trauma. The patient states to me that she feels that there is swelling in the area, and she is concerned about this. Ultrasound was performed and did not show evidence of mass or fluid collection. The patient was medicated as above here in the department. I suspect some of her symptoms may be from healing following her surgery. I do not appreciate any acute life-threatening process. The patient has pain medication at home that she is to continue. She was otherwise invited back to the ER with any new, worsening, or concerning symptoms. The chart was completed utilizing [employer] Speech Voice Recognition Software. Grammatical errors, random word insertions, pronoun errors, and incomplete sentences are an occasional consequence of this system due to software limitations, ambient noise, and hardware issues. Any formal questions or concerns about the content, text, or information contained within the body of this dictation should be directly addressed to the provider for clarification. . Medical Decision Differential diagnosis includes, but is not limited to: Sprain, strain, fracture , dislocation, subluxation, contusion, DVT, cellulitis, abscess, and others Impression Primary Impression: Right upper limb pain Departure Information Dispostion Home / Self-Care Condition GOOD Prescriptions Cyclobenzaprine Hcl (FLEXERIL) 10 Mg Tab 10 MG PO TID for 5 Days, #15 TAB Prov: Hank Dee PA-C 03/22/17 Prednisone (Prednisone Tab) 20 Mg Tab 0 PO DAILY for 4 Days, #8 TAB 2 TABS DAILY FOR 2 DAYS, THEN 1 TAB DAILY FOR 2 DAYS, THEN 1/2 TAB DAILY FOR 2 DAYS. Prov: Hank Dee PA-C 03/22/17 Referrals Jeremy Travis, DO Forms HOME CARE DOCUMENTATION FORM, IMPORTANT VISIT INFORMATION Patient Instructions My [facility] Additional Instructions You were seen and evaluated today on an emergency basis only. This is not a substitute for, or an effort to provide, complete comprehensive medical care. It is not possible to recognize and treat all injuries or illnesses in a single emergency department visit. For this reason it is recommended that you followup with your surgeon on Wednesday as scheduled. Take prednisone 40 mg daily. Flexeril 1 tablet up to 3 times a day as needed for muscle spasms. No driving, working, or alcohol use with Flexeril. Continue your at-home medications. You are welcome to return to the emergency department anytime with new, worsening, or concerning symptoms.
--- NOTE | 2017-03-22 07:01 | DIAGNOSTIC IMAGING REPORT ---
RIGHT UPPER EXTREMITY ULTRASOUND CLINICAL HISTORY: Right upper extremity sensation of swelling. Recent surgery. COMPARISON STUDY: MRI of the right shoulder November 03, 2016. FINDINGS: Sonography of the right upper arm demonstrated no mass, fluid collection or other sonographic abnormality. IMPRESSION: No sonographic abnormality identified within the right upper arm. Electronically signed by: Xavier Hill M.D. 03/22/2017 7:00 AM Dictated Date/Time: 03/22/2017 6:58 AM
[2017-09-23] MEDS ORDERED: FERR1TAB62 PO (00:02)
== END 2017-03-22 01:58 | disposition home or self-care (01) ==
LOC: C.EDB 23:01 → C.EDA 03-22 01:58
DX: M25.511 Pain in right shoulder (principal); M51.36 Other intervertebral disc degeneration, lumbar region; Z86.711 Personal history of pulmonary embolism; Z90.710 Acquired absence of both cervix and uterus; Z90.49 Acquired absence of other specified parts of digestive tract; Z79.899 Other long term (current) drug therapy; Z88.5 Allergy status to narcotic agent; Z88.8 Allergy status to other drugs, medicaments and biological substances; Z80.9 Family history of malignant neoplasm, unspecified; Z83.3 Family history of diabetes mellitus; Z83.79 Family history of other diseases of the digestive system; Z82.49 Family history of ischemic heart disease and other diseases of the circulatory system; Z84.1 Family history of disorders of kidney and ureter

== ENCOUNTER 2017-05-17 17:06 | Emergency (ER) | payer OTHER ==
[~2017-05-17] VITALS: Ht 167.6 cm; Wt 102.5 kg
[~2017-05-17 17:06] MED LIST changes: +FERR325T PO; -IRON PO; -KETO10TA PO
[2017-05-17 17:11] VITALS: TEMP 36.7; Ht 167.6 cm; Wt 102.5 kg
[2017-05-17] MEDS ORDERED: SODIUM CHLORIDE 0.9% 1000ML 1,000 ML IV STA (18:07)
[2017-05-17] MEDS ORDERED: PRZ/40 PO (18:19)
[2017-05-17] MEDS ORDERED: FLX10 PO (18:19)
[2017-05-17] MEDS ORDERED: HYDR-5688 PO (18:19)
[2017-05-17] MEDS ORDERED: BNT/10 PO (18:19)
[2017-05-17] MEDS ORDERED: LORA0.5T12 PO (18:19)
[2017-05-17] MEDS ORDERED: WLLSR150 PO (18:19)
[2017-05-17 18:55] LABS: URINE APPEARANCE CLEAR (CLEAR); URINE BILIRUBIN NEG (NEG); URINE COLOR DK YELLOW; URINE NITRITE NEG (NEG); URINE SPECIFIC GRAVITY 1.027 (1.000-1.030); UROBILINOGEN NEG (NEG); ZZUR CULT IF INDIC CLEAN CATCH NO
[2017-05-17 18:56] LABS: MANUAL MICROSCOPIC REQUIRED? NO; REVIEW REQ? NO
[2017-05-17 18:56] LABS: BASO % 0.4 %; BASO ABS # 0.04 K/uL (0-0.2); COMPLETE YES; EOS % 1.8 %; HEMATOCRIT 39.7 % (37-47); IG% 0.4 %; LYMPH % 25.4 %; MEAN CELL VOLUME 87.4 fL (80-100); MEAN CORPUSCULAR HEMOGLOBIN 29.1 pg (25-34); MEAN CORPUSCULAR HGB CONC 33.2 g/dl (32-36); MEAN PLATELET VOLUME 9.8 fL (7.4-10.4); MONO % 7.4 %; NEUT % 64.6 %; PLATELET COUNT 311 K/uL (130-400); RED BLOOD COUNT 4.54 M/uL (4.2-5.4); WHITE BLOOD COUNT 10.61 K/uL (4.8-10.8)
[2017-05-17 19:04] LABS: ALT/SGPT 58 U/L (12-78); BLOOD UREA NITROGEN 15 mg/dl (7-18); BUN/CREATININE RATIO 12.8 (10-20); CALCIUM 8.8 mg/dl (8.5-10.1); CARBON DIOXIDE 28 mmol/L (21-32); CHLORIDE 104 mmol/L (98-107); GLUCOSE 100 mg/dl (70-99); POTASSIUM 3.8 mmol/L (3.5-5.1); SODIUM 139 mmol/L (136-145)
[2017-05-17 19:07] LABS: ALKALINE PHOSPHATASE 81 U/L (45-117); AST/SGOT 23 U/L (15-37)
--- NOTE | 2017-05-17 19:09 | DIAGNOSTIC IMAGING REPORT ---
CT OF THE ABDOMEN AND PELVIS WITHOUT CONTRAST, STONE PROTOCOL CLINICAL HISTORY: Left flank pain. COMPARISON STUDY: CT of the abdomen and pelvis August 08, 2016 and right upper quadrant ultrasound December 07, 2016. TECHNIQUE: Helical axial images of the abdomen and pelvis were obtained without IV or oral contrast according to renal stone protocol. FINDINGS: No renal, ureteral or bladder calculi are identified. There is no hydronephrosis or hydroureter. Evaluation of the remainder of the abdomen and pelvis is suboptimal on this unenhanced exam. The liver, spleen, adrenal glands and pancreas are normal. There is no biliary ductal dilatation status post cholecystectomy. There is no evidence for a bowel obstruction. The appendix is normal. No bowel wall thickening is identified on this unenhanced examination. There are findings consistent with an L5-S1 discectomy and fusion. IMPRESSION: 1. No urinary calculi or hydronephrosis. 2. No acute process within the abdomen or pelvis on unenhanced exam. Electronically signed by: Xavier Hill M.D. 05/17/2017 7:07 PM Dictated Date/Time: 05/17/2017 7:03 PM
[2017-05-17 20:17] VITALS: BP 141/79; PULSE 66; O2SAT 99
[2017-05-17] MEDS ORDERED: OMEP40CA41 PO (20:52)
--- NOTE | 2017-05-18 00:56 | EMERGENCY ROOM VISIT NOTE ---
History Report prepared by Ridge: Katrina Can Under the Supervision of: Dr. Fitz Berrios M.D. First contact with patient: 18:05 Chief Complaint: FLANK PAIN Stated Complaint: KIDNEYS HURTING History of Present Illness The patient is a 36 year old female who presents to the Emergency Room with complaints of persistent bilateral back pain for the past 1 week. She rates her pain as a 6/10 and describes it as "piercing pain". She reports "the pain has been bugging me for the past month or so", but last night, her pain increased, and she experienced increased urinary frequency. She has not taken any medication for her discomfort yet. She denies any recent hematuria or dysuria and has no past history of kidney stones. She reports she has been experiencing nausea in the evenings for the past several days and her bowel movements have been "softer than usual", but "not diarrhea". The patient is prescribed hydrocodone due to a recent shoulder surgery, but denies taking of it for the past 3 days. She denies LOC, headache, fevers, chills, diaphoresis, visual changes, neck pain, chest pain, breathing difficulties, vomiting, abdominal pain, melena, hematochezia, numbness, weakness, lymphadenopathy, rash, or other complaints. 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 A total of ten systems were reviewed and were otherwise negative. Past Medical & Surgical Medical Problems: (1) Abdominal pain (2) Abdominal pain (3) Abdominal pain (4) Abnormal uterine bleeding (5) Altered mental status (6) C. difficile colitis (7) Chest pain (8) Cholecystitis, acute (9) Degenerative disc disease, lumbar (10) Dehydration (11) DUB (dysfunctional uterine bleeding) (12) Elevated liver enzymes (13) Encephalopathy (14) Epigastric pain (15) History of - pulmonary embolus (16) Intractable vomiting (17) Left knee surgery (18) LFTs abnormal (19) Nausea & vomiting (20) Nausea, vomiting, and diarrhea (21) Palpitations (22) Palpitations (23) Pancreatitis (24) Postoperative pain (25) Shortness of breath (26) Shortness of breath (27) Temporomandibular joint disorder Surgical Problems: (1) History of cholecystectomy (2) S/P laparoscopic hysterectomy (3) S/P lumbar spinal fusion Family History Cancer Diabetes mellitus Gallbladder disease Heart disease Hypertension Kidney disease Kidney stones Lung disease Social History Smoking Status: Never Smoker Smokeless Tobacco Use: No Alcohol Use: occasionally Drug Use: none Marital Status: Housing Status: lives with family Occupation Status: employed Current/Historical Medications Scheduled Bupropion HCl (Bupropion HCl Sr), 150 MG PO BID Ferrous Sulfate (Ferrous Sulfate), 325 MG PO BID Fluoxetine Hcl (Prozac), 40 MG PO QPM Omeprazole (Prilosec), 40 MG PO DAILY Scheduled PRN Cyclobenzaprine HCl (Cyclobenzaprine HCl), 10 MG PO TID PRN for Muscle Spasm Dicyclomine HCl (Dicyclomine HCl), 10 MG PO TID PRN for Abdominal Pain Hydrocodone/Acetaminophen 5MG/325MG ([place] 5MG/325MG), 1 TABLET PO UD PRN for Pain Lorazepam (Lorazepam), 0.5 MG PO BID PRN for Anxiety Allergies Coded Allergies: Tramadol (Verified Adverse Reaction, Mild, DID NOT HELP WITH PAIN RELIEF, 03/21/17) Morphine (Verified Adverse Reaction, Unknown, HEADACHE, STIFF NECK, 03/21/17 ) Physical Exam Vital Signs Date Time Temp Pulse Resp B/P (MAP) Pulse Ox O2 Delivery O2 Flow Rate FiO2 05/17/17 20:17 66 16 141/79 99 05/17/17 19:15 68 16 121/69 96 05/17/17 17:11 36.7 82 16 128/86 98 Room Air Physical Exam GENERAL: Awake, alert, well-appearing, in no distress HENT: Normocephalic, atraumatic. Oropharynx unremarkable. EYES: Normal conjunctiva. Sclera non-icteric. NECK: Supple. No nuchal rigidity. FROM. No JVD. RESPIRATORY: Clear to auscultation. CARDIAC: Regular rate, normal rhythm. Extremities warm and well perfused. Pulses equal. ABDOMEN: Soft, non-distended. The patient complains of some vague discomfort with palpation to the left side of the abdomen. No rebound or guarding. No masses. RECTAL: Deferred. MUSCULOSKELETAL: Tenderness to light palpation in left CVA, left posterior ribs and left anterior costal margin. The back is symmetrical on inspection without obvious abnormality. There is no CVA tenderness to palpation. No joint edema. LOWER EXTREMITIES: Calves are equal size bilaterally and non-tender. No edema. No discoloration. NEURO: Normal sensorium. No sensory or motor deficits noted. SKIN: No rash or jaundice noted. Medical Decision & Procedures ER Provider Diagnostic Interpretation: Radiology results as stated below per my review and radiologist interpretation: CT OF THE ABDOMEN AND PELVIS WITHOUT CONTRAST, STONE PROTOCOL CLINICAL HISTORY: Left flank pain. COMPARISON STUDY: CT of the abdomen and pelvis August 08, 2016 and right upper quadrant ultrasound December 07, 2016. TECHNIQUE: Helical axial images of the abdomen and pelvis were obtained without IV or oral contrast according to renal stone protocol. FINDINGS: No renal, ureteral or bladder calculi are identified. There is no hydronephrosis or hydroureter. Evaluation of the remainder of the abdomen and pelvis is suboptimal on this unenhanced exam. The liver, spleen, adrenal glands and pancreas are normal. There is no biliary ductal dilatation status post cholecystectomy. There is no evidence for a bowel obstruction. The appendix is normal. No bowel wall thickening is identified on this unenhanced examination. There are findings consistent with an L5-S1 discectomy and fusion. IMPRESSION: 1. No urinary calculi or hydronephrosis. 2. No acute process within the abdomen or pelvis on unenhanced exam. Electronically signed by: Xavier Hill M.D. 05/17/2017 7:07 PM Laboratory Results 05/17/17 18:18 Red Blood Count 4.54, Mean Corpuscular Volume 87.4, Mean Corpuscular Hemoglobin 29.1, Mean Corpuscular Hemoglobin Concent 33.2, Mean Platelet Volume 9.8, Neutrophils (%) (Auto) 64.6, Lymphocytes (%) (Auto) 25.4, Monocytes (%) (Auto) 7.4, Eosinophils (%) (Auto) 1.8, Basophils (%) (Auto) 0.4, Neutrophils # (Auto) 6.85, Lymphocytes # (Auto) 2.70, Monocytes # (Auto) 0.79, Eosinophils # (Auto) 0.19, Basophils # (Auto) 0.04 05/17/17 18:18 Test 05/17/17 15:56 05/17/17 18:18 Urine Color DK YELLOW Urine Appearance CLEAR (CLEAR) Urine pH 5.0 (4.5-7.5) Urine Specific [place] 1.027 (1.000-1.030) Urine Protein NEG (NEG) Urine Glucose (UA) NEG (NEG) Urine Ketones NEG (NEG) Urine Occult Blood NEG (NEG) Urine Nitrite NEG (NEG) Urine Bilirubin NEG (NEG) Urine Urobilinogen NEG (NEG) Urine Leukocyte Esterase NEG (NEG) Urine Test NEG (NEG) White Blood Count 10.61 K/uL (4.8-10.8) Red Blood Count 4.54 M/uL (4.2-5.4) Hemoglobin 13.2 g/dL (12.0-16.0) Hematocrit 39.7 % (37-47) Mean Corpuscular Volume 87.4 fL (80-100) Mean Corpuscular Hemoglobin 29.1 pg (25-34) Mean Corpuscular Hemoglobin Concent 33.2 g/dl (32-36) Platelet Count 311 K/uL (130-400) Mean Platelet Volume 9.8 fL (7.4-10.4) Neutrophils (%) (Auto) 64.6 % Lymphocytes (%) (Auto) 25.4 % Monocytes (%) (Auto) 7.4 % Eosinophils (%) (Auto) 1.8 % Basophils (%) (Auto) 0.4 % Neutrophils # (Auto) 6.85 K/uL (1.4-6.5) Lymphocytes # (Auto) 2.70 K/uL (1.2-3.4) Monocytes # (Auto) 0.79 K/uL (0.11-0.59) Eosinophils # (Auto) 0.19 K/uL (0-0.5) Basophils # (Auto) 0.04 K/uL (0-0.2) RDW Standard Deviation 42.1 fL (36.4-46.3) RDW Coefficient of Variation 13.2 % (11.5-14.5) Immature Granulocyte % (Auto) 0.4 % Immature Granulocyte # (Auto) 0.04 K/uL (0.00-0.02) Anion Gap 7.0 mmol/L (3-11) Est Creatinine Clear Calc Drug Dose 76.8 ml/min Estimated GFR () 66.4 Estimated GFR (Non- 57.3 BUN/Creatinine Ratio 12.8 (10-20) Calcium Level 8.8 mg/dl (8.5-10.1) Total Bilirubin 0.4 mg/dl (0.2-1) Direct Bilirubin < 0.1 mg/dl (0-0.2) Aspartate Amino Transf (AST/SGOT) 23 U/L (15-37) Alanine Aminotransferase (ALT/SGPT) 58 U/L (12-78) Alkaline Phosphatase 81 U/L (45-117) Total Protein 7.3 gm/dl (6.4-8.2) Albumin 3.6 gm/dl (3.4-5.0) Lipase 183 U/L (73-393) Laboratory results reviewed by me Medications Administered Medications (Trade) Dose Ordered Sig/Diane Route Start Time Stop Time Status Last Admin Dose Admin Sodium Chloride 1,000 ml @ 999 mls/hr Q1H1M STAT IV 05/17/17 18:07 05/17/17 19:07 DC 05/17/17 18:37 999 MLS/HR ED Course 180: NSS 1000 ml @ 999 mls/hr IV. 181: The patient was evaluated in room A2. A complete history and physical exam was performed. 1999: I reevaluated the patient. She is feeling much better. I discussed her results and discharge instructions and she verbalized complete understanding and agreement. Medical Decision Medication Reconciliation: I attest that I have personally reviewed the patient' s current medication list Blood pressure screening: Patient was found to have a borderline elevated blood pressure and was referred to their primary doctor for recheck and further treatment. Triage Nursing notes reviewed. The patient's presentation and history were concerning for left flank pain. Etiologies such as renal colic, appendicitis, diverticulitis, mesenteric ischemia, aortic pathology, infections, inflammatory bowel disease, PUD, biliary pathology, UTI, musculoskeletal, as well as others were entertained. Clinically the patient is doing well. She has had symptoms for quite some time. She has not sought primary care for this. The patient had an IV established. Blood work was obtained. She was hydrated. She underwent CT imaging. CBC, chemistry panel, LFTs, lipase, urinalysis, test, and CAT scan were negative for any acute pathology. The patient was reassessed. She was doing relatively well. She was reassured by her negative testing. This is possibly musculoskeletal as she was very sensitive to light palpation in the left CVA and left costal margin area. She has no chest symptoms or pulmonary symptoms. She has had back problems before. I did discuss the possibility of low thoracic disc issues or nerve issues. The exact etiology is not known at this time. The patient has prescription hydrocodone at home. She will continue her current medications. She will follow-up closely as an outpatient. If she worsens in any way she will come back to the emergency department.I gave my usual and customary discussion regarding this issue. By the evaluation outlined above other emergent etiologies such as those listed in the differential, as well as others, were deemed relatively unlikely. The patient was educated about the findings as listed above. All questions were answered and the patient was pleased with the treatment. Return instructions were outlined and the patient was discharged in stable condition. The patient was referred to her PCP for follow-up for a recheck of the current condition. [place] Drug Monitoring Program Search Results: patient reviewed within database Drug Monitoring Findings: The patient has had multiple recent prescriptions filled from both her PCP and Orthopedics. Impression Primary Impression: Left flank pain Scribe Attestation The scribe's documentation has been prepared under my direction and personally reviewed by me in its entirety. I confirm that the note above accurately reflects all work, treatment, procedures, and medical decision making performed by me. Departure Information Dispostion Home / Self-Care Referrals Kate Clark M.D. (PCP) Patient Instructions My [facility] Additional Instructions Continue your hydrocodone. Ibuprofen(Motrin, Advil) may be used for fever or pain. Use 600mg every six hours as needed. Take with food. Avoid using more than 2400mg in a 24 hour period. Do not use 2400mg per day for more than three consecutive days without physician direction. Prolonged inappropriate use can lead to stomach upset or ulcers. Rest and drink plenty of fluids as tolerated. Slow sips of water or sports drinks are recommended instead of large amounts all at once. Continue current medications. Once your stomach is settled start with a clear liquid diet (jello, soup broth, etc.) and then advance as tolerated. You should avoid full, heavy meals for about 24 hrs from the time your symptoms resolved. Return to the ER immediately for worsening or persistent abdominal pain, vomiting, fevers, chest pains, difficulty breathing, black or bloody stools, worsening of your condition, or as needed. Follow up with your primary physician in 2-3 days for a recheck of your current condition.
== END 2017-05-17 20:33 | disposition home or self-care (01) ==
LOC: C.EDB 17:08 → C.EDA 20:33
DX: R10.9 Unspecified abdominal pain (principal); R35.0 Frequency of micturition; Z86.711 Personal history of pulmonary embolism; Z98.1 Arthrodesis status; Z90.710 Acquired absence of both cervix and uterus; Z90.49 Acquired absence of other specified parts of digestive tract; Z83.3 Family history of diabetes mellitus; Z82.49 Family history of ischemic heart disease and other diseases of the circulatory system; Z84.1 Family history of disorders of kidney and ureter

== ENCOUNTER 2017-09-23 16:18 | Emergency (ER) | payer OTHER ==
[~2017-09-23] VITALS: Ht 170.2 cm; Wt 103.1 kg
[~2017-09-23 16:18] MED LIST changes: -BUPR-79 PO; +FERR1TAB62 PO; -FERR325T PO; -FLUO40CA8 PO; +HYDR-5688 PO; -OXYC-57 PO
[2017-09-23 16:27] VITALS: TEMP 36.9; Ht 170.2 cm; Wt 103.1 kg
[2017-09-23] MEDS ORDERED: KETOROLAC TROMETHAMINE 30 MG/ML VIAL IV STA (16:50)
--- NOTE | 2017-09-23 16:51 | EMERGENCY ROOM VISIT NOTE ---
History Report prepared by Ridge: Julienne Quintero Under the Supervision of: Dr. Jeremy Zambrano M.D. First contact with patient: 16:36 Chief Complaint: FLANK PAIN Stated Complaint: PAIN ON LEFT SIDE History of Present Illness The patient is a 37 year old female who presents to the Emergency Room with complaints of worsening left lower rib pain beginning a couple months ago. The patient notes her pain radiates to her back. She states her pain feels like its under her ribs. This morning, the patient's pain woke her up. She notes her pain worsens when she lays on her left side, takes a deep breath, and when she pushes on it. She has been following up with Dr. Clark for this pain whom she had a chest x-ray. She denies any trauma. The patient has a history of back surgery by Dr. Quintero a year ago. She denies any rash, fever, cough, calf tenderness, abdominal pain, or recent travel. She has a headache beginning this morning that she believes is stress related.The patient history of pancreatitis , cholecystectomy,hysterectomy, and a pulmonary embolism. She believes her control caused her PE. The patient is not currently on a blood thinner. Source of History: patient Onset: a couple months ago Position: other (left lower rib pain) Quality: other (radiates to back) Timing: worsening Modifying Factors (Worsening): breathing, movement Associated Symptoms: + headache, No fevers, No cough Review of Systems See HPI for pertinent positives & negatives. A total of 10 systems reviewed and were otherwise negative. Past Medical & Surgical Medical Problems: (1) Abdominal pain (2) Abdominal pain (3) Abdominal pain (4) Abnormal uterine bleeding (5) Altered mental status (6) C. difficile colitis (7) Chest pain (8) Cholecystitis, acute (9) Degenerative disc disease, lumbar (10) Dehydration (11) DUB (dysfunctional uterine bleeding) (12) Elevated liver enzymes (13) Encephalopathy (14) Epigastric pain (15) History of - pulmonary embolus (16) Intractable vomiting (17) Left knee surgery (18) LFTs abnormal (19) Nausea & vomiting (20) Nausea, vomiting, and diarrhea (21) Palpitations (22) Palpitations (23) Pancreatitis (24) Postoperative pain (25) Shortness of breath (26) Shortness of breath (27) Temporomandibular joint disorder Surgical Problems: (1) History of cholecystectomy (2) S/P laparoscopic hysterectomy (3) S/P lumbar spinal fusion Old medical records were reviewed. Nurse's notes were reviewed and I agree with. Family History Cancer Diabetes mellitus Gallbladder disease Heart disease Hypertension Kidney disease Kidney stones Lung disease Social History Smoking Status: Never Smoker Alcohol Use: occasionally Drug Use: none Marital Status: Housing Status: lives with family Occupation Status: employed Current/Historical Medications Scheduled Bupropion HCl (Bupropion HCl Sr), 150 MG PO BID Ferrous Sulfate (Ferrous Sulfate), 325 MG PO BID Fluoxetine Hcl (Prozac), 40 MG PO QPM Fluticasone Propionate (Fluticasone Propionate), 2 SPRAYS NA DAILY Omeprazole (Prilosec), 40 MG PO DAILY Scheduled PRN Cyclobenzaprine HCl (Cyclobenzaprine HCl), 10 MG PO TID PRN for Muscle Spasm Dicyclomine HCl (Dicyclomine HCl), 10 MG PO TID PRN for Abdominal Pain Lorazepam (Lorazepam), 0.5 MG PO BID PRN for Anxiety Oxycodone Immediate Rel Tab (Roxicodone Ir), 1-2 TAB PO Q4H PRN for Severe Pain Promethazine HCl (Promethazine HCl), 25 MG PO Q6 PRN for Nausea or Vomiting Allergies Coded Allergies: Tramadol (Verified Adverse Reaction, Mild, DID NOT HELP WITH PAIN RELIEF, 03/21/17) Morphine (Verified Adverse Reaction, Unknown, HEADACHE, STIFF NECK, 03/21/17 ) Physical Exam Vital Signs Date Time Temp Pulse Resp B/P (MAP) Pulse Ox O2 Delivery O2 Flow Rate FiO2 09/23/17 18:13 68 18 138/78 98 Room Air 09/23/17 16:27 36.9 74 16 145/90 98 Room Air Physical Exam General: Non-ill appearing young female in no acute distress. HEENT: Normal cephalic atraumatic. Pupils are equal round and reactive to light. Extraocular movements are intact. Oropharynx is pink with moist mucous membranes. No swelling of the mouth lips or tongue. Neck: Supple with a midline trachea. No meningeal signs or stiffness, no JVD or bruits. No Stridor. Chest: Mild tenderness to palpation of left lower rib, no rash. Clear to auscultation bilaterally. No wheezes or rhonchi. No increased work of breathing. Heart: regular rate and rhythm. Abdomen: Soft nontender, nondistended without rebound guarding or rigidity. Extremities: No cyanosis clubbing or edema. No calf tenderness or assymetry Spine/Back. Non tender to palpation. No CVA tenderness Skin: Good turgor without rashes. Neurologic exam: Cranial nerves two through 12 are intact. Motor and sensation are intact and symmetrical throughout. Medical Decision & Procedures ER Provider Diagnostic Interpretation: Radiology results as stated below per my review and radiologist interpretation: CAT scan of the chest and abdomen. No evidence of PE or other acute abnormality. Please refer to report CHEST ONE VIEW PORTABLE FINDINGS: Cardiomediastinal silhouette normal. Lungs and pleural spaces clear. Osseous structures normal. Upper abdomen normal. IMPRESSION: 1. No acute cardiopulmonary disease. Electronically signed by: Anthony Acosta M.D. Laboratory Results 09/23/17 17:10 Red Blood Count 4.59, Mean Corpuscular Volume 86.5, Mean Corpuscular Hemoglobin 28.3, Mean Corpuscular Hemoglobin Concent 32.7, Mean Platelet Volume 9.8, Neutrophils (%) (Auto) 55.6, Lymphocytes (%) (Auto) 30.8, Monocytes (%) (Auto) 10.2, Eosinophils (%) (Auto) 2.2, Basophils (%) (Auto) 1.0, Neutrophils # (Auto ) 3.34, Lymphocytes # (Auto) 1.85, Monocytes # (Auto) 0.61, Eosinophils # (Auto ) 0.13, Basophils # (Auto) 0.06 09/23/17 17:10 Test 09/23/17 17:10 09/23/17 17:18 09/23/17 17:20 09/23/17 17:22 White Blood Count 6.00 K/uL (4.8-10.8) Red Blood Count 4.59 M/uL (4.2-5.4) Hemoglobin 13.0 g/dL (12.0-16.0) Hematocrit 39.7 % (37-47) Mean Corpuscular Volume 86.5 fL (80-100) Mean Corpuscular Hemoglobin 28.3 pg (25-34) Mean Corpuscular Hemoglobin Concent 32.7 g/dl (32-36) Platelet Count 236 K/uL (130-400) Mean Platelet Volume 9.8 fL (7.4-10.4) Neutrophils (%) (Auto) 55.6 % Lymphocytes (%) (Auto) 30.8 % Monocytes (%) (Auto) 10.2 % Eosinophils (%) (Auto) 2.2 % Basophils (%) (Auto) 1.0 % Neutrophils # (Auto) 3.34 K/uL (1.4-6.5) Lymphocytes # (Auto) 1.85 K/uL (1.2-3.4) Monocytes # (Auto) 0.61 K/uL (0.11-0.59) Eosinophils # (Auto) 0.13 K/uL (0-0.5) Basophils # (Auto) 0.06 K/uL (0-0.2) RDW Standard Deviation 41.8 fL (36.4-46.3) RDW Coefficient of Variation 13.2 % (11.5-14.5) Immature Granulocyte % (Auto) 0.2 % Immature Granulocyte # (Auto) 0.01 K/uL (0.00-0.02) Est Creatinine Clear Calc Drug Dose 90.5 ml/min Estimated GFR () 79.3 Estimated GFR (Non- 68.4 BUN/Creatinine Ratio 9.3 (10-20) Calcium Level 9.0 mg/dl (8.5-10.1) Total Bilirubin 0.6 mg/dl (0.2-1) Direct Bilirubin 0.1 mg/dl (0-0.2) Aspartate Amino Transf (AST/SGOT) 18 U/L (15-37) Alanine Aminotransferase (ALT/SGPT) 29 U/L (12-78) Alkaline Phosphatase 75 U/L (45-117) Total Protein 7.4 gm/dl (6.4-8.2) Albumin 3.7 gm/dl (3.4-5.0) Lipase 134 U/L (73-393) Bedside D-Dimer > 450 ng/mlFEU (0-450) Bedside Troponin I < 0.030 ng/ml (0-0.045) Urine Color YELLOW Urine Appearance CLEAR (CLEAR) Urine pH 7.5 (4.5-7.5) Urine Specific Wilson 1.008 (1.000-1.030) Urine Protein NEG (NEG) Urine Glucose (UA) NEG (NEG) Urine Ketones NEG (NEG) Urine Occult Blood NEG (NEG) Urine Nitrite NEG (NEG) Urine Bilirubin NEG (NEG) Urine Urobilinogen NEG (NEG) Urine Leukocyte Esterase NEG (NEG) Bedside Hemoglobin 13.3 g/dl (12.0-16.0) Bedside Hematocrit 39 % (37-47) Bedside Sodium 141 mEq/L (135-144) Bedside Potassium 3.7 mEq/L (3.3-5.0) Bedside Chloride 103 mEq/L (101-112) Bedside Total CO2 24 mEq/l (24-31) Anion Gap 19.0 mmol/L (16-25) Bedside Blood Urea Nitrogen 9 mg/dl (7-18) Bedside Creatinine 1.0 mg/dl (0.6-1.3) Bedside Glucose (other) 80 mg/dl (70-99) Bedside Ionized Calcium (Seth) 1.18 mmol/l (1.12-1.32) Laboratory studies as stated above per my review. Medications Administered Medications (Trade) Dose Ordered Sig/Diane Route Start Time Stop Time Status Last Admin Dose Admin Ketorolac Tromethamine (Toradol Inj) 30 mg NOW STAT IV 09/23/17 16:50 09/23/17 16:52 DC 09/23/17 17:21 30 MG Hydromorphone HCl (Dilaudid Inj) 1 mg NOW STAT IV 09/23/17 18:17 09/23/17 18:18 DC 09/23/17 18:21 1 MG Ondansetron HCl (Zofran Inj) 4 mg NOW STAT IV 09/23/17 18:17 09/23/17 18:18 DC 09/23/17 18:21 4 MG ECG Indication: other (left side pain) Rate (beats per minute): 63 Rhythm: normal sinus Findings: no acute ischemic change, no ectopy, other (normal intervals) Comparison ECG Date: no prior available ED Course 1640: Past medical records reviewed. The patient was evaluated in room B9, and a complete history and physical examination were performed. 1650: Toradol Inj 30 mg IV. Medical Decision Differential diagnosis: costochondritis, cardiac disease, PE, CHF, pneumothorax , kidney stone, shingles, electrolyte or metabolic abnormality. This patient comes in as described above. She's having pain along her left lower rib cage into the upper abdomen . She has had no fever or other complaints. She has no urinary symptoms. There is no rash on exam or anything to suggest shingles and this has been going on for quite some time. Chest x- ray was obtained and shows no findings suggest congestive heart failure, pneumonia, or pneumothorax. EKG was obtained as well as multiple blood testing. IV access was established and she was given Toradol 30 mg IV. EKG does not suggest acute coronary syndrome or arrhythmia. Her troponin is not elevated. I do not think is likely cardiac disease. She's had no white count or fever to suggest infection. She's had no acute electrolyte or metabolic abnormality.. She's nothing had nothing to suggest that she has liver, gallbladder, or pancreas disease. Her d-dimer is mildly elevated and light of this, I did do a chest CT to rule out PE, particularly given her history. She will also the CAT scan of her abdomen and pelvis. There are no acute findings seen CAT scan of her abdomen or pelvis. She did receive Dilaudid 1 mg IV. She will be discharged home this may be more musculoskeletal. There is no evidence of infection or surgical process. I recommend she follow with her regular doctor. I did give her small prescription for OxyIR 5 mg, one or 2 pills every 4-6 hours as needed. She was warned that this can make her drowsy- do not take before drinking, driving, working. She was happy the plan and discharged to home. [place] Drug Monitoring Program Search Results: patient reviewed within database, no issues identified Medication Reconcilliation Current Medication List: was personally reviewed by me Blood Pressure Screening Patient's blood pressure: Elevated blood pressure Blood pressure disposition: Elevated BP felt to be situational Impression Primary Impression: Left sided chest pain Scribe Attestation The scribe's documentation has been prepared under my direction and personally reviewed by me in its entirety. I confirm that the note above accurately reflects all work, treatment, procedures, and medical decision making performed by me. Departure Information Dispostion Home / Self-Care Prescriptions Oxycodone Immediate Rel Tab (ROXICODONE IR) 5 Mg Tab 1-2 TAB PO Q4H Y for Severe Pain, #10 TAB Prov: Jeremy Zambrano M.D. 09/23/17 Referrals Kate Clark M.D. (PCP) Forms HOME CARE DOCUMENTATION FORM, IMPORTANT VISIT INFORMATION Patient Instructions My [facility]
--- NOTE | 2017-09-23 17:04 | DIAGNOSTIC IMAGING REPORT ---
CHEST ONE VIEW PORTABLE CLINICAL HISTORY: 37 years-old Female presenting with CHEST PAIN. TECHNIQUE: Portable upright AP view of the chest was obtained. COMPARISON: 12/07/2016. FINDINGS: Cardiomediastinal silhouette normal. Lungs and pleural spaces clear. Osseous structures normal. Upper abdomen normal. IMPRESSION: 1. No acute cardiopulmonary disease. Electronically signed by: Anthony Acosta M.D. 09/23/2017 5:03 PM Dictated Date/Time: 09/23/2017 5:02 PM
[2017-09-23] MEDS ORDERED: FLNIN/ (17:15)
[2017-09-23] MEDS ORDERED: PROM25TA16 PO (17:15)
[2017-09-23 17:33] LABS: BASO ABS # 0.06 K/uL (0-0.2); COMPLETE YES; EOS % 2.2 %; HEMATOCRIT 39.7 % (37-47); IG% 0.2 %; LYMPH % 30.8 %; LYMPH ABS # 1.85 K/uL (1.2-3.4); MEAN CELL VOLUME 86.5 fL (80-100); MEAN CORPUSCULAR HEMOGLOBIN 28.3 pg (25-34); MEAN CORPUSCULAR HGB CONC 32.7 g/dl (32-36); MEAN PLATELET VOLUME 9.8 fL (7.4-10.4); MONO % 10.2 %; NEUT % 55.6 %; PLATELET COUNT 236 K/uL (130-400); RED BLOOD COUNT 4.59 M/uL (4.2-5.4)
[2017-09-23 17:34] LABS: ISTAT HEMOGLOBIN 13.3 g/dl (12.0-16.0); ISTAT IONIZED CALCIUM 1.18 mmol/l (1.12-1.32)
[2017-09-23 17:35] LABS: URINE APPEARANCE CLEAR (CLEAR); URINE BILIRUBIN NEG (NEG); URINE COLOR YELLOW; URINE NITRITE NEG (NEG); URINE PH 7.5 (4.5-7.5); URINE SPECIFIC GRAVITY 1.008 (1.000-1.030); UROBILINOGEN NEG (NEG)
[2017-09-23 17:39] LABS: POINT OF CARE TROPONIN I < 0.030 ng/ml (0-0.045)
[2017-09-23 17:40] LABS: MANUAL MICROSCOPIC REQUIRED? NO; REVIEW REQ? NO
[2017-09-23 17:58] LABS: BUN/CREATININE RATIO 9.3 (10-20); CREATININE 1.03 mg/dl (0.60-1.20); POTASSIUM 3.6 mmol/L (3.5-5.1)
[2017-09-23] MEDS ORDERED: OPTIRAY 320 IV PRN (18:00)
[2017-09-23] MEDS ORDERED: ONDANSETRON INJ 2 MG/ML 2 ML VIAL IV STA (18:17)
[2017-09-23] MEDS ORDERED: HYDROmorphone INJ 1 MG/ML SYR IV STA (18:17)
[2017-09-23] MEDS ORDERED: LORA0.5T12 PO (18:19)
[2017-09-23] MEDS ORDERED: BNT/10 PO (18:19)
[2017-09-23] MEDS ORDERED: FLX10 PO (18:19)
[2017-09-23] MEDS ORDERED: PRZ/40 PO (18:19)
[2017-09-23] MEDS ORDERED: WLLSR150 PO (18:19)
--- NOTE | 2017-09-23 18:20 | DIAGNOSTIC IMAGING REPORT ---
(CHEST FOR PE) ANGIO WITH CLINICAL HISTORY: 37 years-old Female presenting with left upper abdominal pain radiating to the chest and left flank, clinical concern for pulmonary embolus. TECHNIQUE: Multidetector CT angiography of the chest was performed after administration of intravenous contrast. 3-D volumetric and/or maximum intensity projection (MIP) images were subsequently reconstructed for review. IV contrast: 95 mL of Optiray 320. A dose lowering technique was used consistent with the principles of ALARA (as low as reasonably achievable). COMPARISON: 01/05/2017. CT DOSE (mGy.cm): The estimated cumulative dose is 1327.[address] abdomen and pelvis. 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 Pulmonary vasculature: The study is adequate for assessment of the pulmonary vascular tree. No filling defect within the pulmonary arteries to suggest embolus. Main pulmonary artery is not enlarged. No flattening of the interventricular septum. No intracardiac intracardiac filling defect. No reflux of contrast into the hepatic veins. Remaining chest: On soft tissue windows, normal thyroid and thoracic inlet. No axillary, supraclavicular, hilar, or mediastinal lymphadenopathy. Normal aorta. Normal heart size. No pericardial or pleural effusion. Cholecystectomy clips noted. On lung windows, minimal dependent changes likely atelectasis. No focal infiltrate. Airways patent. On bone windows, normal osseous structures. IMPRESSION: 1. No evidence of pulmonary embolus. No acute intrathoracic pathology. Electronically signed by: Anthony Acosta M.D. 09/23/2017 6:19 PM Dictated Date/Time: 09/23/2017 6:14 PM
--- NOTE | 2017-09-23 18:21 | DIAGNOSTIC IMAGING REPORT ---
CT SCAN OF THE ABDOMEN AND PELVIS WITH IV CONTRAST CLINICAL HISTORY: Left upper quadrant abdominal pain. COMPARISON STUDY: Abdominal CT dated 05/17/2017. TECHNIQUE: Following the IV administration of 95 cc of Optiray 320, CT scan of the abdomen and pelvis is performed from the lung bases to the proximal femora. Images are reviewed in the axial, sagittal, and coronal planes. IV contrast was administered without complication. A dose lowering technique was utilized adhering to the principles of ALARA. CT DOSE: 1327.86 mGy.cm FINDINGS: Lung bases: The heart is normal in size and without pericardial effusion. The lung bases are clear. Liver: The contrast-enhanced liver is normal in size, contour, and attenuation. There is no intrahepatic biliary ductal dilatation. The hepatic veins and portal veins are patent. Gallbladder: Surgically absent noting clips in the gallbladder fossa. Spleen: Normal in size and attenuation. Pancreas: Unremarkable. Adrenal glands: Unremarkable. Kidneys: The contrast enhanced kidneys are normal in size and without hydronephrosis. The kidneys enhance symmetrically. A subcentimeter cortical hypodensity in the left kidney likely represents a cyst but is too small for definitive characterization. Abdominal vasculature: The abdominal aorta is normal in course and caliber. Bowel: The small bowel and colon are normal in course and caliber. The appendix is well-visualized and normal. Peritoneum: There is no intraperitoneal free air or abdominal ascites. There is a small fat-containing umbilical hernia. Lymphadenopathy: None. Pelvic viscera: The bladder is normal in appearance. The uterus is surgically absent. No adnexal lesion is seen. Trace free fluid is noted in the cul-de-sac. Skeletal structures: There are postoperative changes from L5 to S1 spinal fusion. No lytic or blastic lesions are seen. Mild sclerotic change is noted in the sacroiliac joints. IMPRESSION: 1. There are no acute infectious or inflammatory findings in the abdomen or pelvis. 2. There is trace free fluid in the cul-de-sac, likely within physiologic limits. Electronically signed by: Robinson Carpenter M.D. 09/23/2017 6:19 PM Dictated Date/Time: 09/23/2017 6:13 PM
[2017-09-23] MEDS ORDERED: OXYC1TAB3 PO (18:33)
[2017-09-23 18:38] VITALS: BP 129/81; PULSE 67; O2SAT 96
[2017-09-23] MEDS ORDERED: OMEP40CA41 PO (20:52)
== END 2017-09-23 18:47 | disposition home or self-care (01) ==
LOC: C.EDB 16:20
DX: R07.89 Other chest pain (principal); Z86.711 Personal history of pulmonary embolism; Z98.1 Arthrodesis status; Z90.49 Acquired absence of other specified parts of digestive tract; Z90.710 Acquired absence of both cervix and uterus; Z83.3 Family history of diabetes mellitus; Z82.49 Family history of ischemic heart disease and other diseases of the circulatory system; Z84.1 Family history of disorders of kidney and ureter

== ENCOUNTER 2017-11-28 21:43 | Emergency (ER) | payer OTHER ==
[~2017-11-28] VITALS: Ht 170.2 cm; Wt 104.6 kg
[~2017-11-28 21:43] MED LIST changes: +BNT/10 PO; +FLNIN/; +FLX10 PO; -HYDR-5688 PO; +LORA0.5T12 PO; +OMEP40CA41 PO; +OXYC1TAB3 PO; +PROM25TA16 PO; +PRZ/40 PO; +WLLSR150 PO
[2017-11-28 21:47] VITALS: TEMP 36.8; Ht 170.2 cm; Wt 104.6 kg
[2017-11-28] MEDS ORDERED: ONDANSETRON INJ 2 MG/ML 2 ML VIAL IV STA (22:32)
[2017-11-28] MEDS ORDERED: KETOROLAC TROMETHAMINE 30 MG/ML VIAL IV STA (22:32)
--- NOTE | 2017-11-28 22:41 | EMERGENCY ROOM VISIT NOTE ---
History Report prepared by Ridge: Wayne Prado Under the Supervision of: Dr. Robinson Vasquez M.D. First contact with patient: 22:24 Chief Complaint: RIB PAIN Stated Complaint: BAD PAIN ON L SIDE UNDER RIB History of Present Illness The patient is a 37 year old female who presents to the Emergency Room with complaints of worsening chest pain that began recently. She states the pain is located on the left side of her chest underneath her breast. She adds the pain feels like she is "in a vice". She describes the pain as an 8/10 in severity. She states the pain is worsened with movement and breathing. She adds she is "unable to get comfortable in any position". Patient adds that she has been complaining about similar pain for the past couple of months. She states she has done nothing recently that could have aggravated the pain. She has associated symptoms of nausea. She denies any fevers or coughs. Pertinent past medical history includes a blood clot in her lung a couple years ago. Patient suspected it was from her control, which she has stopped taking. Pertinent surgical history includes a hysterectomy and cholecystectomy. Patient denies having any medication allergies. She denies being on any blood pressure medication or blood thinners. Patient states she has recently seen Dr. Quintero, who stated her pain is not from her back. In addition, she saw a news writer, Dr. Stanley, who stated he didn't feel like her pain was stomach related. Patient states her PCP is Dr. Clark. In September, patient was seen in this ED for similar pain. She had a Chest CT, Abd/Pelvis CT, and laboratory workup that was essentially unrevealing. Source of History: patient Onset: Recent Position: chest (left) Symptom Intensity: 8/10 Timing: worsening Associated Symptoms: + nausea, No fevers, No cough Note: Patient has knee pain. Review of Systems See HPI for pertinent positives & negatives. A total of 10 systems reviewed and were otherwise negative. Past Medical & Surgical Medical Problems: (1) Abdominal pain (2) Abdominal pain (3) Abdominal pain (4) Abnormal uterine bleeding (5) Altered mental status (6) C. difficile colitis (7) Chest pain (8) Cholecystitis, acute (9) Degenerative disc disease, lumbar (10) Dehydration (11) DUB (dysfunctional uterine bleeding) (12) Elevated liver enzymes (13) Encephalopathy (14) Epigastric pain (15) History of - pulmonary embolus (16) Intractable vomiting (17) Left knee surgery (18) LFTs abnormal (19) Nausea & vomiting (20) Nausea, vomiting, and diarrhea (21) Palpitations (22) Palpitations (23) Pancreatitis (24) Postoperative pain (25) Shortness of breath (26) Shortness of breath (27) Temporomandibular joint disorder Surgical Problems: (1) History of cholecystectomy (2) S/P laparoscopic hysterectomy (3) S/P lumbar spinal fusion Family History Cancer Diabetes mellitus Gallbladder disease Heart disease Hypertension Kidney disease Kidney stones Lung disease Social History Smoking Status: Never Smoker Alcohol Use: occasionally Drug Use: none Marital Status: Housing Status: lives with family Occupation Status: employed Current/Historical Medications Scheduled Bupropion HCl (Bupropion HCl Sr), 150 MG PO BID Ferrous Sulfate (Ferrous Sulfate), 325 MG PO BID Fluoxetine Hcl (Prozac), 40 MG PO QPM Fluticasone Propionate (Fluticasone Propionate), 2 SPRAYS NA DAILY Omeprazole (Prilosec), 40 MG PO DAILY Scheduled PRN Cyclobenzaprine HCl (Cyclobenzaprine HCl), 10 MG PO TID PRN for Muscle Spasm Dicyclomine HCl (Dicyclomine HCl), 10 MG PO TID PRN for Abdominal Pain Lorazepam (Lorazepam), 0.5 MG PO BID PRN for Anxiety Oxycodone Ir (Roxicodone Ir), 1-2 TAB PO Q4H PRN for Pain Promethazine HCl (Promethazine HCl), 25 MG PO Q6 PRN for Nausea or Vomiting Allergies Coded Allergies: Tramadol (Verified Adverse Reaction, Mild, DID NOT HELP WITH PAIN RELIEF, 11/28/17) Morphine (Verified Adverse Reaction, Unknown, HEADACHE, STIFF NECK, ) Physical Exam Vital Signs Date Time Temp Pulse Resp B/P (MAP) Pulse Ox O2 Delivery O2 Flow Rate FiO2 11/28/17 23:46 78 20 120/82 98 Room Air 11/28/17 21:47 36.8 76 18 179/112 99 Room Air Physical Exam GENERAL: Patient is in mild distress secondary to pain HEENT: No acute trauma, normocephalic atraumatic, mucous membranes moist, no nasal congestion, no scleral icterus. NECK: No stridor, no adenopathy, no meningismus, trachea is midline. LUNGS: Clear to auscultation bilaterally, no wheeze, no rhonchi, breath sounds equal. HEART: Without murmurs gallops or rubs, regular rate and rhythm. CHEST: Nontender chest wall, no rash ABDOMEN: Soft, nontender, bowel sounds positive, no hernias, no peritonitis. EXTREMITIES: No cyanosis or edema, full range of motion of all the joints without pain or difficulty, no signs for acute trauma. NEUROLOGIC: Oriented x 3, no acute motor or sensory deficits, no focal weakness. SKIN: No rash, no jaundice, no diaphoresis. Medical Decision & Procedures ER Provider Diagnostic Interpretation: Radiology results as stated below per my review and radiologist interpretation: CTA CHEST: Compared to 09/23/17 No PE or aortic dissection. Lungs are clear aside from minimal scarring. Trace left pleural effusion Radiologist: Calvin Short M.D. Laboratory Results 11/28/17 22:50 11/28/17 22:50 Test 11/28/17 22:50 Red Blood Count 4.32 M/uL (4.2-5.4) Mean Corpuscular Volume 87.3 fL (80-100) Mean Corpuscular Hemoglobin 27.8 pg (25-34) Mean Corpuscular Hemoglobin Concent 31.8 g/dl (32-36) RDW Standard Deviation 41.7 fL (36.4-46.3) RDW Coefficient of Variation 12.9 % (11.5-14.5) Mean Platelet Volume 9.9 fL (7.4-10.4) Prothrombin Time 10.1 SECONDS (9.0-12.0) Prothromb Time International Ratio 1.0 (0.9-1.1) Activated Partial Thromboplast Time 24.5 SECONDS (21.0-31.0) Partial Thromboplastin Ratio 0.9 Anion Gap 6.0 mmol/L (3-11) Est Creatinine Clear Calc Drug Dose 111.9 ml/min Estimated GFR () 101.5 Estimated GFR (Non- 87.6 BUN/Creatinine Ratio 15.8 (10-20) Calcium Level 8.6 mg/dl (8.5-10.1) Troponin I < 0.015 ng/ml (0-0.045) Lipase 146 U/L (73-393) Laboratory results reviewed by me. Medications Administered Medications (Trade) Dose Ordered Sig/Diane Route Start Time Stop Time Status Last Admin Dose Admin Ondansetron HCl (Zofran Inj) 4 mg NOW STAT IV 11/28/17 22:32 11/28/17 22:35 DC 11/28/17 22:51 4 MG Hydromorphone HCl (Dilaudid Inj) 1 mg Q30M PRN IV 11/28/17 22:45 12/12/17 22:44 11/28/17 22:50 1 MG Ketorolac Tromethamine (Toradol Inj) 30 mg NOW STAT IV 11/28/17 22:32 11/28/17 22:35 DC 11/28/17 22:52 30 MG Hydromorphone HCl (Dilaudid Inj) 1 mg STK-MED ONCE .ROUTE 11/28/17 23:43 11/28/17 23:44 DC 11/28/17 23:46 1 MG Oxycodone HCl (Roxicodone Immediate Rel 5MG Home Pack) 1 homepack UD ONCE PO 11/29/17 00:45 11/29/17 00:46 DC 11/29/17 00:49 1 HOMEPACK ECG Indication: chest pain Rate (beats per minute): 63 Rhythm: normal sinus Findings: no acute ischemic change, no ectopy ED Course 2225: The patient was evaluated in room C7. A complete history and physical exam was performed. 2232: Toradol Inj 30mg IV, Zofran Inj 4mg IV 2245: Ioversol 100ml IV, Dilaudid Inj 1mg IV 2340: Dilaudid Inj 0.5mg .ROUTE 2343: Dilaudid Inj 1mg .ROUTE 0045: Oxycodone HCl 1 homepack PO 0052: Reevaluated the patient. Discussed results and discharge instructions. She verbalized understanding and agreement. The patient is ready for discharge. Medical Decision Differential Diagnosis: Musculoskeletal pain, nerve impingement, pleurisy, pneumothorax, pneumonia, pericarditis, PE, aortic dissection There is no leukocytosis or concerning anemia. No significant electrolyte abnormality, no kidney failure. EKG shows a normal sinus rhythm, no acute ischemia. Cardiac enzyme testing times one is not consistent with acute cardiac injury. Chest CT does not show evidence for PE or for aortic dissection. There was no pneumothorax. A trace amount of left pleural effusion was seen. Patient received IV Zofran and IV Toradol, she received IV Dilaudid. She is more comfortable. The patient's pain is likely musculoskeletal or pleuritic. She has seen multiple specialists without any etiology being determined. She is being discharged with a few oxycodone for pain, Motrin for inflammation, heat was suggested. I have referred her back to her family doctor's office, she may need a pain management evaluation. If things are worsening, if she develops fever, she should return for reassessment. [place] Drug Monitoring Program Search Results: patient reviewed within database Drug Monitoring Findings: Patient was prescribed 10 tablets of 5mg oxycodone in early September. Medication Reconcilliation Current Medication List: was personally reviewed by me Blood Pressure Screening Patient's blood pressure: Elevated blood pressure Blood pressure disposition: Elevated BP felt to be situational Impression Primary Impression: Left sided chest pain Scribe Attestation The scribe's documentation has been prepared under my direction and personally reviewed by me in its entirety. I confirm that the note above accurately reflects all work, treatment, procedures, and medical decision making performed by me. Departure Information Dispostion Home / Self-Care Prescriptions Oxycodone Ir (Roxicodone Ir) 5 Mg Tab 1-2 TAB PO Q4H Y for Pain, #6 TAB Prov: Robinson Vasquez M.D. 11/29/17 Referrals Kate Clark M.D. (PCP) Forms HOME CARE DOCUMENTATION FORM, IMPORTANT VISIT INFORMATION, WORK / SCHOOL INSTRUCTIONS Patient Instructions My [email or web address] Additional Instructions heat to the area rest motrin 600 mg every 6 hours for 4 days oxy ir 1-2 tab every 4 hours for severe pain see fallon chan--call in the am for an appt consider pain management for better comfort measures return if worsening
[2017-11-28] MEDS ORDERED: HYDROmorphone INJ 2 MG/ML SYR/VIAL IV PRN (22:45)
[2017-11-28] MEDS ORDERED: OPTIRAY 320 IV PRN (22:45)
[2017-11-28 23:16] LABS: HEMATOCRIT 37.7 % (37-47); MEAN CELL VOLUME 87.3 fL (80-100); MEAN CORPUSCULAR HEMOGLOBIN 27.8 pg (25-34); MEAN CORPUSCULAR HGB CONC 31.8 g/dl (32-36); MEAN PLATELET VOLUME 9.9 fL (7.4-10.4); PLATELET COUNT 223 K/uL (130-400); RED CELL DISTRIBUTION WIDTH CV 12.9 % (11.5-14.5); RED CELL DISTRIBUTION WIDTH SD 41.7 fL (36.4-46.3); WHITE BLOOD COUNT 7.64 K/uL (4.8-10.8)
[2017-11-28 23:35] LABS: BLOOD UREA NITROGEN 13 mg/dl (7-18); CALCIUM 8.6 mg/dl (8.5-10.1); CARBON DIOXIDE 29 mmol/L (21-32); CREATININE 0.84 mg/dl (0.60-1.20); GLUCOSE 112 mg/dl (70-99); LIPASE 146 U/L (73-393); POTASSIUM 3.5 mmol/L (3.5-5.1); PTT PATIENT 24.5 SECONDS (21.0-31.0); SODIUM 141 mmol/L (136-145)
[2017-11-28] MEDS ORDERED: HYDROmorphone INJ 0.5 MG/0.5 ML SYR ONE (23:40)
[2017-11-28] MEDS ORDERED: HYDROmorphone INJ 1 MG/ML SYR ONE (23:43)
[2017-11-29] MEDS ORDERED: OXYC1TAB3 PO (00:40)
[2017-11-29] MEDS ORDERED: OXYCODONE IR HOME PACK PO ONE (00:45)
[2017-11-29 00:49] VITALS: BP 151/90; PULSE 75; O2SAT 96
--- NOTE | 2017-11-29 07:14 | DIAGNOSTIC IMAGING REPORT ---
(CHEST FOR PE) ANGIO WITH CT DOSE: 438.89 mGy.cm HISTORY: 37 years-old Female presents with acute left breast pain. TECHNIQUE: Multiple CTA images of the chest were obtained after the intravenous administration of 91 ml Optiray 320. Coronal and sagittal MIPS were obtained from the axial data set and were submitted for review. A dose lowering technique was utilized adhering to the principles of ALARA. COMPARISON: CTA of the chest 09/23/2017. FINDINGS: CTA: The heart is normal in size without pericardial effusion. Thoracic aorta is normal in both course and caliber without dissection or aneurysm. The imaged great vessels are patent. The pulmonary arterial tree is opacified to level of the proximal subsegmental branches and demonstrates no focal filling defects to suggest pulmonary thromboembolic disease. CT CHEST: Thyroid is homogeneous. No pathologic adenopathy. No focal abnormality of the breasts. Mild dependent subsegmental atelectasis. Minimal consolidation of the basal left lower lobe suggests atelectasis as well without definite pleural effusion identified. No pneumothorax. No focal airspace consolidation identified to suggest pneumonia. Central airways are patent. Prior cholecystectomy. No acute abnormality of the imaged upper abdomen. Soft tissues are unremarkable. Bones appear intact. IMPRESSION: 1. No acute abnormality of the chest, specifically no acute aortic pathology or evidence of pulmonary thromboembolic disease. 2. Minimal dependent subsegmental atelectasis. No lobar airspace consolidation to suggest pneumonia. 3. Prior cholecystectomy. The above report was generated using voice recognition software. It may contain grammatical, syntax or spelling errors. Electronically signed by: Bhavesh Hall M.D. 11/29/2017 7:12 AM Dictated Date/Time: 11/29/2017 7:08 AM
== END 2017-11-29 01:06 | disposition home or self-care (01) ==
LOC: C.EDB 21:43 → C.EDC 11-29 01:06
DX: R07.9 Chest pain, unspecified (principal); Z86.711 Personal history of pulmonary embolism; Z90.710 Acquired absence of both cervix and uterus; Z90.49 Acquired absence of other specified parts of digestive tract; Z98.1 Arthrodesis status; Z83.3 Family history of diabetes mellitus; Z82.49 Family history of ischemic heart disease and other diseases of the circulatory system; Z84.1 Family history of disorders of kidney and ureter

== ENCOUNTER 2017-12-14 17:30 | Emergency (ER) | payer OTHER ==
[~2017-12-14] VITALS: Ht 170.2 cm; Wt 101.4 kg
[2017-12-14 18:08] VITALS: TEMP 36.8; Ht 170.2 cm; Wt 101.4 kg
[2017-12-14 18:36] VITALS: O2SAT 99
--- NOTE | 2017-12-14 18:58 | DIAGNOSTIC IMAGING REPORT ---
SINGLE VIEW CHEST CLINICAL HISTORY: Palpitations. Dyspnea. FINDINGS: An AP, portable, upright chest radiograph is compared to study dated 09/23/2017 and correlated with chest CT dated 11/28/2017. The examination is mildly degraded by portable technique and patient rotation. The cardiomediastinal silhouette is unremarkable. The lungs and pleural spaces are clear. No pneumothorax is seen. The bony thorax is grossly intact. IMPRESSION: No active disease in the chest and no significant change from recent chest CT. Electronically signed by: Robinson Carpenter M.D. 12/14/2017 6:57 PM Dictated Date/Time: 12/14/2017 6:56 PM
[2017-12-14 19:03] LABS: BASO % 1.4 %; BASO ABS # 0.09 K/uL (0-0.2); EOS ABS # 0.19 K/uL (0-0.5); HEMATOCRIT 39.7 % (37-47); HEMOGLOBIN 13.2 g/dL (12.0-16.0); IG# 0.01 K/uL (0.00-0.02); LYMPH % 37.7 %; LYMPH ABS # 2.42 K/uL (1.2-3.4); MEAN CELL VOLUME 87.1 fL (80-100); MEAN CORPUSCULAR HEMOGLOBIN 28.9 pg (25-34); MEAN CORPUSCULAR HGB CONC 33.2 g/dl (32-36); MEAN PLATELET VOLUME 9.9 fL (7.4-10.4); MONO % 6.9 %; MONO ABS # 0.44 K/uL (0.11-0.59); NEUT % 50.8 %; NEUT ABS # 3.27 K/uL (1.4-6.5); PLATELET COUNT 264 K/uL (130-400); RED CELL DISTRIBUTION WIDTH SD 41.5 fL (36.4-46.3); WHITE BLOOD COUNT 6.42 K/uL (4.8-10.8)
--- NOTE | 2017-12-14 19:09 | EMERGENCY ROOM VISIT NOTE ---
History Report prepared by Ridge: Dulce Reich Under the Supervision of: Dr. Fitz Berrios M.D. First contact with patient: 18:28 Chief Complaint: CARDIAC ASSESSMENT Stated Complaint: FLUTTERING IN CHEST, HARD TO CATCH BREATH Nursing Triage Summary: patient states of fluttering in her chest the last few days and catching herself taking a deep breath and she has not even been doing anything states she has a history of a PE History of Present Illness The patient is a 37 year old female who presents to the Emergency Room for a cardiac assessment. The patient states that she has been feeling heart palpitations with shortness of breath for 5 days now. She states that she came to the ED because she has a history of blood clots in the past and is worried. She notes that she does not take blood thinners and her last blood clot was over 2 years ago. She reports that they did not do a work up, but believe it may have been from her being on control. She notes that she no longer takes control and has had a hysterectomy. The patient complains of some chest pain, a productive cough with green mucus, lightheadedness, and back pain. She notes that she has had back surgery and pain in the past, but this feels different from that. She reports that she did have shingles on that side recently. She states that she takes Gabapentin and just finished Valtrex. The patient notes a history of C-Diff. Pt denies LOC, headache, fevers, chills, diaphoresis, visual changes, neck pain, breathing difficulties, nausea, vomiting , abdominal pain, back pain, melena, hematochezia, urinary symptoms, numbness, weakness, lymphadenopathy, rash, or other complaints. The patient denies recent travel and being around anyone else who is sick. Source of History: patient Onset: 5 days ago Position: chest Quality: other (palpitations) Timing: constant Associated Symptoms: + cough (productive), + SOB, + back pain Note: The patient complains of lightheadedness. Review of Systems See HPI for pertinent positives and negatives. A total of ten systems were reviewed and were otherwise negative. Past Medical & Surgical Medical Problems: (1) Abdominal pain (2) Abdominal pain (3) Abdominal pain (4) Abnormal uterine bleeding (5) Acute chest pain (6) Acute exacerbation of chronic low back pain (7) Acute exacerbation of chronic low back pain (8) Acute exacerbation of chronic low back pain (9) Acute thoracic back pain (10) Altered mental status (11) Animl-ridr [facility] by [facility] (12) Back sprain (13) C. difficile colitis (14) Chest pain (15) Cholecystitis, acute (16) Chronic bilateral upper abdominal pain (17) Clostridium difficile infection (18) Concussion (19) Constipation (20) Degenerative disc disease, lumbar (21) Dehydration (22) Diarrhea (23) DUB (dysfunctional uterine bleeding) (24) Elevated liver enzymes (25) Encephalopathy (26) Epigastric abdominal pain (27) Epigastric pain (28) Esophageal spasm (29) Gastritis (30) Headache (31) History of - pulmonary embolus (32) Intractable vomiting (33) Left flank pain (34) Left knee surgery (35) LFTs abnormal (36) Loss of consciousness (37) Nausea & vomiting (38) Nausea, vomiting, and diarrhea (39) Otitis media (40) Ovarian cyst (41) Palpitations (42) Palpitations (43) Pancreatitis (44) Pelvic pain (45) Postoperative pain (46) Right upper limb pain (47) Shortness of breath (48) Shortness of breath (49) Shortness of breath (50) Shoulder contusion (51) Substernal chest pain (52) Temporomandibular joint disorder (53) Upper abdominal pain Surgical Problems: (1) History of cholecystectomy (2) S/P laparoscopic hysterectomy (3) S/P lumbar spinal fusion Family History Cancer Diabetes mellitus Gallbladder disease Heart disease Hypertension Kidney disease Kidney stones Lung disease Social History Smoking Status: Never Smoker Alcohol Use: occasionally Drug Use: none Marital Status: Housing Status: lives with family Occupation Status: employed Current/Historical Medications Scheduled Bupropion HCl (Bupropion HCl Sr), 150 MG PO BID Ferrous Sulfate (Ferrous Sulfate), 325 MG PO BID Fluoxetine Hcl (Prozac), 40 MG PO HS Gabapentin (Neurontin), 300 MG PO TID Omeprazole (Prilosec), 40 MG PO HS Scheduled PRN Cyclobenzaprine HCl (Cyclobenzaprine HCl), 10 MG PO TID PRN for Muscle Spasm Dicyclomine HCl (Dicyclomine HCl), 10 MG PO TID PRN for Abdominal Pain Fluticasone Propionate (Fluticasone Propionate), 2 SPRAYS NA DAILY PRN for Nasal Congestion Lorazepam (Lorazepam), 0.5 MG PO BID PRN for Anxiety Promethazine HCl (Promethazine HCl), 25 MG PO Q6 PRN for Nausea or Vomiting Allergies Coded Allergies: Tramadol (Verified Adverse Reaction, Mild, DID NOT HELP WITH PAIN RELIEF, 12/14/17) Morphine (Verified Adverse Reaction, Unknown, HEADACHE, STIFF NECK, ) Physical Exam Vital Signs Date Time Temp Pulse Resp B/P (MAP) Pulse Ox O2 Delivery O2 Flow Rate FiO2 12/14/17 22:41 63 124/96 95 12/14/17 21:41 99 Room Air 12/14/17 21:36 75 142/92 79 146/97 88 144/115 12/14/17 21:36 94 144/115 98 Room Air 12/14/17 19:14 58 12/14/17 19:06 72 125/97 100 Room Air 12/14/17 18:36 99 Room Air 12/14/17 18:08 36.8 67 20 123/85 97 Room Air Physical Exam GENERAL: Awake, alert, well-appearing, in no distress HENT: Normocephalic, atraumatic. Oropharynx unremarkable. EYES: Normal conjunctiva. Sclera non-icteric. NECK: Supple. No nuchal rigidity. FROM. No JVD. RESPIRATORY: Clear to auscultation. CARDIAC: Regular rate, normal rhythm. Extremities warm and well perfused. Pulses equal. ABDOMEN: Soft, non-distended. No tenderness to palpation. No rebound or guarding. No masses. RECTAL: Deferred. MUSCULOSKELETAL: Chest examination reveals no tenderness. The back is symmetrical on inspection without obvious abnormality. There is no CVA tenderness to palpation. No joint edema. LOWER EXTREMITIES: Calves are equal size bilaterally and non-tender. No edema. No discoloration. NEURO: Normal sensorium. No sensory or motor deficits noted. SKIN: No rash or jaundice noted. Medical Decision & Procedures ER Provider Diagnostic Interpretation: Radiology results as stated below per my review and radiologist interpretation: SINGLE VIEW CHEST CLINICAL HISTORY: Palpitations. Dyspnea. FINDINGS: An AP, portable, upright chest radiograph is compared to study dated 09/23/2017 and correlated with chest CT dated 11/28/2017. The examination is mildly degraded by portable technique and patient rotation. The cardiomediastinal silhouette is unremarkable. The lungs and pleural spaces are clear. No pneumothorax is seen. The bony thorax is grossly intact. IMPRESSION: No active disease in the chest and no significant change from recent chest CT. Electronically signed by: Robinson Carpenter M.D. 12/14/2017 6:57 PM Dictated Date/Time: 12/14/2017 6:56 PM Laboratory Results 12/14/17 18:50 Red Blood Count 4.56, Mean Corpuscular Volume 87.1, Mean Corpuscular Hemoglobin 28.9, Mean Corpuscular Hemoglobin Concent 33.2, Mean Platelet Volume 9.9, Neutrophils (%) (Auto) 50.8, Lymphocytes (%) (Auto) 37.7, Monocytes (%) (Auto) 6.9, Eosinophils (%) (Auto) 3.0, Basophils (%) (Auto) 1.4, Neutrophils # (Auto) 3.27, Lymphocytes # (Auto) 2.42, Monocytes # (Auto) 0.44, Eosinophils # (Auto) 0.19, Basophils # (Auto) 0.09 12/14/17 18:50 Test 12/14/17 18:50 12/14/17 18:53 White Blood Count 6.42 K/uL (4.8-10.8) Red Blood Count 4.56 M/uL (4.2-5.4) Hemoglobin 13.2 g/dL (12.0-16.0) Hematocrit 39.7 % (37-47) Mean Corpuscular Volume 87.1 fL (80-100) Mean Corpuscular Hemoglobin 28.9 pg (25-34) Mean Corpuscular Hemoglobin Concent 33.2 g/dl (32-36) Platelet Count 264 K/uL (130-400) Mean Platelet Volume 9.9 fL (7.4-10.4) Neutrophils (%) (Auto) 50.8 % Lymphocytes (%) (Auto) 37.7 % Monocytes (%) (Auto) 6.9 % Eosinophils (%) (Auto) 3.0 % Basophils (%) (Auto) 1.4 % Neutrophils # (Auto) 3.27 K/uL (1.4-6.5) Lymphocytes # (Auto) 2.42 K/uL (1.2-3.4) Monocytes # (Auto) 0.44 K/uL (0.11-0.59) Eosinophils # (Auto) 0.19 K/uL (0-0.5) Basophils # (Auto) 0.09 K/uL (0-0.2) RDW Standard Deviation 41.5 fL (36.4-46.3) RDW Coefficient of Variation 13.0 % (11.5-14.5) Immature Granulocyte % (Auto) 0.2 % Immature Granulocyte # (Auto) 0.01 K/uL (0.00-0.02) Prothrombin Time 10.1 SECONDS (9.0-12.0) Prothromb Time International Ratio 1.0 (0.9-1.1) Activated Partial Thromboplast Time 24.7 SECONDS (21.0-31.0) Partial Thromboplastin Ratio 1.0 Anion Gap 5.0 mmol/L (3-11) Est Creatinine Clear Calc Drug Dose 101.6 ml/min Estimated GFR () 92.1 Estimated GFR (Non- 79.5 BUN/Creatinine Ratio 13.3 (10-20) Calcium Level 8.4 mg/dl (8.5-10.1) Magnesium Level 2.3 mg/dl (1.8-2.4) Total Bilirubin 0.4 mg/dl (0.2-1) Direct Bilirubin < 0.1 mg/dl (0-0.2) Aspartate Amino Transf (AST/SGOT) 15 U/L (15-37) Alanine Aminotransferase (ALT/SGPT) 27 U/L (12-78) Alkaline Phosphatase 67 U/L (45-117) Pro-B-Type Natriuretic Peptide 185 pg/ml (0-450) Total Protein 7.6 gm/dl (6.4-8.2) Albumin 3.8 gm/dl (3.4-5.0) Lipase 152 U/L (73-393) Human Chorionic Gonadotropin, Qual NEG (NEG) Bedside D-Dimer > 450 ng/mlFEU (0-450) Bedside Troponin I < 0.030 ng/ml (0-0.045) Laboratory results reviewed by me Medications Administered Medications (Trade) Dose Ordered Sig/Diane Route Start Time Stop Time Status Last Admin Dose Admin Albuterol (Ventolin Hfa Inhaler) 2 puffs NOW ONCE INH 12/14/17 22:30 12/14/17 22:31 DC 12/14/17 22:22 2 PUFFS ECG Indication: palpitations Rate (beats per minute): 54 Rhythm: sinus bradycardia Findings: no acute ischemic change, no ectopy Change: Patient's electrocardiogram was interpreted by me. ED Course 1834: The patient was evaluated in room B12A. A complete history and physical exam was performed. 1950: I reevaluated the patient and she is feeling well. 2202: I reevaluated the patient. Discussed results and discharge instructions: She verbalized understanding and agreement. The patient is ready for discharge. 2229: Ordered Albuterol 2 puffs INH. Medical Decision Prior records/ancillary studies reviewed. Triage Nursing notes reviewed and agree them. The patient's history was concerning for the patient's and shortness of breath. Differential diagnosis: Etiologies such as bronchitis, pneumonia, COPD, reactive airway disease, CHF, cardiac ischemia, pulmonary embolism, pneumothorax, musculoskeletal, infections , gastrointestinal, as well as others were entertained. Physical examination: As above. ER treatment provided: Monitoring and reassurance Albuterol inhaler On reassessment the patient felt better. Diagnostic interpretation by me: The electrocardiogram was negative for pathologic change. The labs revealed an unremarkable CBC and chemistry panel. Lites was unremarkable. Cardiac markers negative. D-dimer normal. By records were review. The patient has had a abnormal d-dimer on all her previous testing. Imaging studies: Chest x-ray as above. The patient noted a minor cough. She thought she might have a bronchitis and requested possible antibiotic treatment. Her history is concerning for C. difficile. She had no evidence of pneumonia. She was afebrile. She is not hypoxic. She may be developing a minor bronchitis but there is no evidence of any significant infection. I discussed conservative management with an albuterol MDI, Tylenol and Motrin as she would be at risk for C. difficile with antibiotic use. The patient was in agreement. I also discussed the patient's elevated d-dimer. She has had numerous CT scans of her chest including one that was done 2 weeks ago. She has no hypoxia or tachycardia. She has no pleuritic pain. She mainly was concerned about palpitations. I feel that PE is extremely unlikely as she has had no precipitating events or causes. Using shared decision making the patient denied were in agreement to hold off on additional CT imaging of her chest and she has had numerous ones in the past, including recently. Close outpatient follow-up was advised. By the evaluation outlined above other emergent etiologies such as those listed in the differential, as well as others, were deemed relatively unlikely. The patient was educated about the findings as listed above. All questions were answered and the patient was pleased with the treatment. Return instructions were outlined and the patient was discharged in stable condition. The patient was referred to her for follow-up for a recheck of the current condition. Medication Reconcilliation Current Medication List: was personally reviewed by me Blood Pressure Screening Patient's blood pressure: Elevated blood pressure Blood pressure disposition: Referred to PCP Impression Primary Impression: Palpitations Additional Impression: Shortness of breath Scribe Attestation The scribe's documentation has been prepared under my direction and personally reviewed by me in its entirety. I confirm that the note above accurately reflects all work, treatment, procedures, and medical decision making performed by me. Departure Information Dispostion Home / Self-Care Referrals Kate Clark M.D. (PCP) Forms IMPORTANT VISIT INFORMATION Patient Instructions My [facility] Additional Instructions Acetaminophen(Tylenol) may be used for fever or pain. Use 1000mg every six hours as needed. Avoid using more than 4000mg in a 24 hour period. (AND/OR) Ibuprofen(Motrin, Advil) may be used for fever or pain. Use 600mg every six hours as needed. Take with food. Avoid using more than 2400mg in a 24 hour period. Do not use 2400mg per day for more than three consecutive days without physician direction. Prolonged inappropriate use can lead to stomach upset or ulcers. Albuterol Inhaler: Take 2 puffs four times daily for seven days, then as needed. Rest and drink plenty of fluids. Return to the ER for chest pain, palpitations, racing heart rate, severe headache, neck stiffness, chest pain, difficulty breathing, fevers, vomiting, worsening of your condition, or as needed. Follow up with your primary physician this week for a recheck of your current condition. Problem Qualifiers
[2017-12-14 19:21] LABS: BLOOD UREA NITROGEN 12 mg/dl (7-18); CREATININE 0.91 mg/dl (0.60-1.20); GLUCOSE 80 mg/dl (70-99)
[2017-12-14 19:22] LABS: ALBUMIN 3.8 gm/dl (3.4-5.0); ALT/SGPT 27 U/L (12-78); AST/SGOT 15 U/L (15-37); CALCIUM 8.4 mg/dl (8.5-10.1); CARBON DIOXIDE 27 mmol/L (21-32); LIPASE 152 U/L (73-393); POTASSIUM 3.6 mmol/L (3.5-5.1); SODIUM 138 mmol/L (136-145)
[2017-12-14 19:24] LABS: PTT PATIENT 24.7 SECONDS (21.0-31.0)
[2017-12-14 19:27] LABS: ALKALINE PHOSPHATASE 67 U/L (45-117); TOTAL PROTEIN 7.6 gm/dl (6.4-8.2)
[2017-12-14] MEDS ORDERED: GABA-113 PO (19:42)
[2017-12-14] MEDS ORDERED: ALBUTEROL HFA 8 GM INHALER INH ONE (22:30)
[2017-12-14 22:41] VITALS: BP 124/96; PULSE 63; O2SAT 95
== END 2017-12-14 22:42 | disposition home or self-care (01) ==
LOC: C.EDB 17:32
DX: R00.2 Palpitations (principal); R06.02 Shortness of breath; M54.5 Low back pain; R10.10 Upper abdominal pain, unspecified; G89.29 Other chronic pain; M51.36 Other intervertebral disc degeneration, lumbar region; M26.609 Unspecified temporomandibular joint disorder, unspecified side; R00.1 Bradycardia, unspecified; Z86.718 Personal history of other venous thrombosis and embolism; Z90.710 Acquired absence of both cervix and uterus; Z86.19 Personal history of other infectious and parasitic diseases; Z86.711 Personal history of pulmonary embolism; Z83.3 Family history of diabetes mellitus; Z82.49 Family history of ischemic heart disease and other diseases of the circulatory system; Z84.1 Family history of disorders of kidney and ureter

== ENCOUNTER 2018-01-10 18:27 | Emergency (ER) | payer OTHER ==
[~2018-01-10] VITALS: Ht 170.2 cm; Wt 102.2 kg
[~2018-01-10 18:27] MED LIST changes: +GABA-113 PO; -OXYC1TAB3 PO
[2018-01-10 18:34] VITALS: TEMP 39.1; Ht 170.2 cm; Wt 102.2 kg
[2018-01-10] MEDS ORDERED: KETOROLAC TROMETHAMINE 30 MG/ML VIAL IV STA (20:51)
[2018-01-10] MEDS ORDERED: SODIUM CHLORIDE 0.9% 1000ML 1,000 ML IV STA ×2 (20:51)
[2018-01-10] MEDS ORDERED: ACETAMINOPHEN 500 MG TAB PO STA (20:51)
--- NOTE | 2018-01-10 21:14 | DIAGNOSTIC IMAGING REPORT ---
CHEST ONE VIEW PORTABLE HISTORY: cough, fever COMPARISON: Chest 12/14/2017. FINDINGS: The lungs are clear. Cardiac silhouette is normal in size. No pleural effusions. No pneumothorax. IMPRESSION: No acute process. Electronically signed by: Ted Hanna M.D. 01/10/2018 9:12 PM Dictated Date/Time: 01/10/2018 9:11 PM
[2018-01-10 21:42] LABS: BASO % 0.4 %; BASO ABS # 0.02 K/uL (0-0.2); EOS % 0.4 %; EOS ABS # 0.02 K/uL (0-0.5); HEMATOCRIT 37.1 % (37-47); HEMOGLOBIN 12.5 g/dL (12.0-16.0); IG# 0.01 K/uL (0.00-0.02); LYMPH ABS # 0.83 K/uL (1.2-3.4); MEAN CELL VOLUME 85.5 fL (80-100); MEAN CORPUSCULAR HEMOGLOBIN 28.8 pg (25-34); MEAN CORPUSCULAR HGB CONC 33.7 g/dl (32-36); MEAN PLATELET VOLUME 9.2 fL (7.4-10.4); MONO % 12.5 %; MONO ABS # 0.69 K/uL (0.11-0.59); NEUT % 71.5 %; NEUT ABS # 3.95 K/uL (1.4-6.5); PLATELET COUNT 205 K/uL (130-400); RED CELL DISTRIBUTION WIDTH CV 12.9 % (11.5-14.5); RED CELL DISTRIBUTION WIDTH SD 40.6 fL (36.4-46.3); WHITE BLOOD COUNT 5.52 K/uL (4.8-10.8)
[2018-01-10 21:45] LABS: INFLUENZA B ANTIGEN Neg for Influ B (NEG)
[2018-01-10 22:09] LABS: CALCIUM 8.1 mg/dl (8.5-10.1); CREATININE 0.99 mg/dl (0.60-1.20); POTASSIUM 3.7 mmol/L (3.5-5.1)
[2018-01-10] MEDS ORDERED: HYDROmorphone INJ 0.5 MG/0.5 ML SYR IV STA (22:28)
[2018-01-10] MEDS ORDERED: ACET-1311 PO (23:07)
[2018-01-10] MEDS ORDERED: IBUP-1050 PO (23:07)
[2018-01-10 23:24] LABS: INFLUENZA B PCR Neg for Influ B (NEG)
[2018-01-10 23:28] LABS: INFLUENZA A PCR POS for Influ A (NEG)
[2018-01-10] MEDS ORDERED: OSELTAMIVIR PHOSPHATE 75 MG CAP PO STA ×2 (23:36)
[2018-01-10] MEDS ORDERED: IBUPROFEN 200 MG TAB PO STA (23:38)
[2018-01-11] MEDS ORDERED: OSEL75CA12 PO
[2018-01-11 00:41] VITALS: BP 119/76; PULSE 90; O2SAT 94
--- NOTE | 2018-01-11 02:05 | EMERGENCY ROOM VISIT NOTE ---
History Report prepared by Ridge: Ran Nieto Under the Supervision of: Dr. Fitz Berrios M.D. First contact with patient: 20:38 Chief Complaint: FLU LIKE SX Stated Complaint: FLU FEELS LIKE MY HEAD IS GOING TO EXPLODE History of Present Illness The patient is a 37 year old female who presents to the Emergency Room with complaints of constant flu-like symptoms beginning yesterday morning. The patient states that she in experiencing a burning in her chest, cough, body aches, stiff neck, mild nausea, mild sore throat, sinus drainage, and migraine. She notes that she feels like she was "hit by a truck." She reports that she has a family history of migraines, but does not have a personal history of migraines that requires medication. The patient states that she gets migraines occasionally. She notes that her and son are just getting over being sick. She reports that she took four ibuprofen and one Tylenol at 1300 today. Pt denies LOC, fevers, chills, diaphoresis, visual changes, chest pain, breathing difficulties, vomiting, abdominal pain, back pain, melena, hematochezia, urinary symptoms, numbness, weakness, lymphadenopathy, rash, or other complaints. Source of History: patient Onset: yesterday morning Position: other (global) Quality: other (flu-like symptoms) Timing: constant Associated Symptoms: + sorethroat (mild), + cough, + nausea (mild) Note: The patient complains of chest burning, body aches, a stiff neck, sinus drainage , and a migraine. Review of Systems See HPI for pertinent positives and negatives. A total of ten systems were reviewed and were otherwise negative. Past Medical & Surgical Medical Problems: (1) Abdominal pain (2) Abdominal pain (3) Abdominal pain (4) Abnormal uterine bleeding (5) Acute chest pain (6) Acute exacerbation of chronic low back pain (7) Acute exacerbation of chronic low back pain (8) Acute exacerbation of chronic low back pain (9) Acute thoracic back pain (10) Altered mental status (11) Animl-ridr injured by fall fr horse in [facility], init (12) Back sprain (13) C. difficile colitis (14) Chest pain (15) Cholecystitis, acute (16) Chronic bilateral upper abdominal pain (17) Clostridium difficile infection (18) Concussion (19) Constipation (20) Degenerative disc disease, lumbar (21) Dehydration (22) Diarrhea (23) DUB (dysfunctional uterine bleeding) (24) Elevated liver enzymes (25) Encephalopathy (26) Epigastric abdominal pain (27) Epigastric pain (28) Esophageal spasm (29) Gastritis (30) Headache (31) History of - pulmonary embolus (32) Intractable vomiting (33) Left flank pain (34) Left knee surgery (35) LFTs abnormal (36) Loss of consciousness (37) Nausea & vomiting (38) Nausea, vomiting, and diarrhea (39) Otitis media (40) Ovarian cyst (41) Palpitations (42) Palpitations (43) Pancreatitis (44) Pelvic pain (45) Postoperative pain (46) Right upper limb pain (47) Shortness of breath (48) Shortness of breath (49) Shortness of breath (50) Shoulder contusion (51) Substernal chest pain (52) Temporomandibular joint disorder (53) Upper abdominal pain Surgical Problems: (1) History of cholecystectomy (2) S/P laparoscopic hysterectomy (3) S/P lumbar spinal fusion Family History Cancer Diabetes mellitus Gallbladder disease Heart disease Hypertension Kidney disease Kidney stones Lung disease Social History Smoking Status: Never Smoker Alcohol Use: occasionally Drug Use: none Marital Status: Housing Status: lives with family Occupation Status: employed Current/Historical Medications Scheduled Bupropion HCl (Bupropion HCl Sr), 150 MG PO BID Ferrous Sulfate (Ferrous Sulfate), 325 MG PO BID Fluoxetine Hcl (Prozac), 40 MG PO HS Gabapentin (Neurontin), 300 MG PO TID Omeprazole (Prilosec), 40 MG PO HS Oseltamivir (Tamiflu), 75 MG PO BID Scheduled PRN Acetaminophen (Tylenol), 650 MG PO DIRECTED PRN for Pain or Fever Cyclobenzaprine HCl (Cyclobenzaprine HCl), 10 MG PO TID PRN for Muscle Spasm Dicyclomine HCl (Dicyclomine HCl), 10 MG PO TID PRN for Abdominal Pain Fluticasone Propionate (Fluticasone Propionate), 2 SPRAYS NA DAILY PRN for Nasal Congestion Ibuprofen (Advil), 200-800 MG PO Q4H PRN for Pain or Fever Lorazepam (Lorazepam), 0.5 MG PO BID PRN for Anxiety Promethazine HCl (Promethazine HCl), 25 MG PO Q6 PRN for Nausea or Vomiting Allergies Coded Allergies: Tramadol (Verified Adverse Reaction, Mild, DID NOT HELP WITH PAIN RELIEF, 01/10/18) Morphine (Verified Adverse Reaction, Unknown, HEADACHE, STIFF NECK, ) Physical Exam Vital Signs Date Time Temp Pulse Resp B/P (MAP) Pulse Ox O2 Delivery O2 Flow Rate FiO2 01/11/18 00:41 90 18 119/76 94 01/11/18 00:34 90 119/76 94 Room Air 01/10/18 23:10 92 135/81 97 Room Air 01/10/18 21:37 102 123/77 96 Room Air 01/10/18 18:34 39.1 118 18 157/102 96 Room Air Physical Exam GENERAL: Awake, alert, mildly ill appearing, no distress HEAD: Normocephalic, atraumatic. No edema. EYES: Normal conjunctiva. Sclera non-icteric. EARS: Right TM normal. Left TM normal. NOSE: Mild congestion. OROPHARYNX: Lips, tongue, and mucosa unremarkable. No erythema or exudate. NECK: Supple. No nuchal rigidity. FROM. No adenopathy. Negative jolt accentuation test. RESPIRATORY: CTA bilaterally. No wheezes rales or rhonchi. CARDIAC: Borderline tachycardic rate. Normal rhythm. No murmurs. No rubs. GI: Soft, non distended. No tenderness to palpation. NEURO: Normal sensorium. Normal speech.Negative Kernig's and Brudzinski's. SKIN: No rash or jaundice noted. No petechia or purpura. Medical Decision & Procedures ER Provider Diagnostic Interpretation: Radiology results as stated below per my review and radiologist interpretation: CHEST ONE VIEW PORTABLE HISTORY: cough, fever COMPARISON: Chest 12/14/2017. FINDINGS: The lungs are clear. Cardiac silhouette is normal in size. No pleural effusions. No pneumothorax. IMPRESSION: No acute process. Electronically signed by: Ted Hanna M.D. 01/10/2018 9:12 PM Laboratory Results 01/10/18 21:30 Red Blood Count 4.34, Mean Corpuscular Volume 85.5, Mean Corpuscular Hemoglobin 28.8, Mean Corpuscular Hemoglobin Concent 33.7, Mean Platelet Volume 9.2, Neutrophils (%) (Auto) 71.5, Lymphocytes (%) (Auto) 15.0, Monocytes (%) (Auto) 12.5, Eosinophils (%) (Auto) 0.4, Basophils (%) (Auto) 0.4, Neutrophils # (Auto ) 3.95, Lymphocytes # (Auto) 0.83, Monocytes # (Auto) 0.69, Eosinophils # (Auto ) 0.02, Basophils # (Auto) 0.02 01/10/18 21:30 Test 01/10/18 18:35 01/10/18 21:30 01/10/18 22:30 Influenza Type A Antigen Neg for Influ A (NEG) Influenza Type B Antigen Neg for Influ B (NEG) White Blood Count 5.52 K/uL (4.8-10.8) Red Blood Count 4.34 M/uL (4.2-5.4) Hemoglobin 12.5 g/dL (12.0-16.0) Hematocrit 37.1 % (37-47) Mean Corpuscular Volume 85.5 fL (80-100) Mean Corpuscular Hemoglobin 28.8 pg (25-34) Mean Corpuscular Hemoglobin Concent 33.7 g/dl (32-36) Platelet Count 205 K/uL (130-400) Mean Platelet Volume 9.2 fL (7.4-10.4) Neutrophils (%) (Auto) 71.5 % Lymphocytes (%) (Auto) 15.0 % Monocytes (%) (Auto) 12.5 % Eosinophils (%) (Auto) 0.4 % Basophils (%) (Auto) 0.4 % Neutrophils # (Auto) 3.95 K/uL (1.4-6.5) Lymphocytes # (Auto) 0.83 K/uL (1.2-3.4) Monocytes # (Auto) 0.69 K/uL (0.11-0.59) Eosinophils # (Auto) 0.02 K/uL (0-0.5) Basophils # (Auto) 0.02 K/uL (0-0.2) RDW Standard Deviation 40.6 fL (36.4-46.3) RDW Coefficient of Variation 12.9 % (11.5-14.5) Immature Granulocyte % (Auto) 0.2 % Immature Granulocyte # (Auto) 0.01 K/uL (0.00-0.02) Anion Gap 7.0 mmol/L (3-11) Est Creatinine Clear Calc Drug Dose 93.8 ml/min Estimated GFR () 83.2 Estimated GFR (Non- 71.8 BUN/Creatinine Ratio 11.9 (10-20) Calcium Level 8.1 mg/dl (8.5-10.1) Influenza Type A (RT-PCR) POS for Influ A (NEG) Influenza Type B (RT-PCR) Neg for Influ B (NEG) Laboratory results reviewed by me Medications Administered Medications (Trade) Dose Ordered Sig/Diane Route Start Time Stop Time Status Last Admin Dose Admin Sodium Chloride 1,000 ml @ 999 mls/hr Q1H1M STAT IV 01/10/18 20:51 01/10/18 21:51 DC 01/10/18 21:31 999 MLS/HR Sodium Chloride 1,000 ml @ 125 mls/hr Q8H STAT IV 01/10/18 20:51 01/11/18 01:33 DC 01/10/18 21:32 125 MLS/HR Ketorolac Tromethamine (Toradol Inj) 15 mg NOW STAT IV 01/10/18 20:51 01/10/18 20:53 DC 01/10/18 21:31 15 MG Acetaminophen (Tylenol Tab) 1,000 mg NOW STAT PO 01/10/18 20:51 01/10/18 20:53 DC 01/10/18 21:32 1,000 MG Hydromorphone HCl (Dilaudid Inj) 0.5 mg NOW STAT IV 01/10/18 22:28 01/10/18 22:29 DC 01/10/18 23:09 0.5 MG Oseltamivir Phosphate (Tamiflu Cap) 75 mg NOW STAT PO 01/10/18 23:36 01/10/18 23:38 DC 01/11/18 00:35 75 MG Ibuprofen (Advil Tab) 400 mg NOW STAT PO 01/10/18 23:38 01/10/18 23:39 DC 01/11/18 00:35 400 MG ED Course 2037: The patient was evaluated in room C8. A complete history and physical exam was performed. 2050: Acetaminophen 1000mg PO, Toradol Inj 15mg IV, Sodium Chloride 1000 ml @ 999 mls/hr IV 2227: Dilaudid Inj 0.5mg IV 2319: I reevaluated and updated the patient. 2336: Tamiflu Cap 75mg PO x2 2338: Ibuprofen 400mg PO 0015: I reevaluated the patient. Discussed results and discharge instructions: she verbalized understanding and agreement. The patient is ready for discharge. Medical Decision Triage Nursing notes reviewed. The patient's presentation and history were concerning for fever, flu like symptoms and headache. Etiologies such as influenza, viral syndrome, otitis, pharyngitis, pneumonia, urinary tract infection, sepsis, bacteremia, meningitis, as well as others were entertained. The patient presents with flulike symptoms. She is uncomfortable. She notes significant fever. She has generalized myalgias and arthralgias. She notes pain in her Head as well. Her family has been sick with similar but somewhat more mild symptoms recently. The patient was hydrated. She was given Tylenol and Toradol. The patient was feeling somewhat better, although she was still having significant myalgias. She requested additional pain medication. She was given a small dose of Dilaudid. She has had this in the past and has done well with this. On reassessment she was doing better. Her initial flu screen was negative although by history this was very concerning for influenza. A influenza PCR was performed. This was positive. This would definitely fit the patient's overall syndrome. Influenza symptoms were consistent than a meningitis or encephalitis. Her fever resolved. She was given Tamiflu, or Motrin and was doing very well. An additional Tamiflu was given for the morning. I spent significant amount of time discussing the issue with the patient and her significant other. If she worsens in any way she will be back to the Emergency Room. If other symptoms develop in her condition worsen she will come back as well. I gave my usual and customary discussion regarding this issue. By the evaluation outlined above other emergent etiologies such as those listed in the differential, as well as others, were deemed relatively unlikely. The patient was educated about the findings as listed above. All questions were answered and the patient was pleased with the treatment. Return instructions were outlined and the patient was discharged in stable condition. The patient was referred to her PCP for follow-up for a recheck of the current condition. Medication Reconcilliation Current Medication List: was personally reviewed by me Blood Pressure Screening Patient's blood pressure: Elevated blood pressure Blood pressure disposition: Elevated BP felt to be situational Impression Primary Impression: Influenza A Additional Impressions: Fever Headache Scribe Attestation The scribe's documentation has been prepared under my direction and personally reviewed by me in its entirety. I confirm that the note above accurately reflects all work, treatment, procedures, and medical decision making performed by me. Departure Information Dispostion Home / Self-Care Prescriptions Oseltamivir (Tamiflu) 75 Mg Cap 75 MG PO BID, #8 CAP Prov: Fitz Berrios MD 01/11/18 Referrals Kate Clark M.D. (PCP) Forms HOME CARE DOCUMENTATION FORM, IMPORTANT VISIT INFORMATION Patient Instructions My [facility] Additional Instructions Tamiflu 75 mg twice daily for 5 days. Acetaminophen(Tylenol) may be used for fever or pain. Use 1000mg every six hours as needed. Avoid using more than 4000mg in a 24 hour period. (AND/OR) Ibuprofen(Motrin, Advil) may be used for fever or pain. Use 600mg every six hours as needed. Take with food. Avoid using more than 2400mg in a 24 hour period. Do not use 2400mg per day for more than three consecutive days without physician direction. Prolonged inappropriate use can lead to stomach upset or ulcers. Rest and drink plenty of fluids. Controlling your fever with Tylenol and Ibuprofen as above will make you feel better. Wash your hands after nose blowing, sneezing, or coughing. Most germs are spread through contact, therefore improper hygiene may result in your close contacts and loved ones becoming ill just like you. Return to the ER for severe headache, neck stiffness, chest pain, difficulty breathing, fevers, vomiting, worsening of your condition, or as needed. Follow up with your primary physician this week for a recheck of your current condition. Problem Qualifiers
== END 2018-01-11 00:42 | disposition home or self-care (01) ==
LOC: C.EDB 18:28 → C.EDC 01-11 00:42
DX: J10.1 Influenza due to other identified influenza virus with other respiratory manifestations (principal); R50.9 Fever, unspecified; Z88.6 Allergy status to analgesic agent; Z79.899 Other long term (current) drug therapy; Z82.49 Family history of ischemic heart disease and other diseases of the circulatory system; Z83.3 Family history of diabetes mellitus; Z83.6 Family history of other diseases of the respiratory system; Z83.79 Family history of other diseases of the digestive system; Z84.1 Family history of disorders of kidney and ureter; Z88.5 Allergy status to narcotic agent; R51 Headache

== ENCOUNTER 2018-03-29 07:03 | Day surgery (SDC) | payer OTHER ==
[~2018-03-29] VITALS: Ht 167.6 cm; Wt 102.0 kg
[2018-03-29] VITALS (10 sets, daily range): BP systolic 79–142; BP diastolic 62–82; PULSE 8–86; TEMP 36.7–37.2; O2SAT 96–98; Ht 167.6 cm; Wt 102.0 kg
[~2018-03-29 07:03] MED LIST changes: +ACET-1311 PO; +IBUP-1050 PO; +OSEL75CA12 PO
--- NOTE | 2018-03-29 09:12 | Discharge Instructions ---
Discharge Instructions Procedure Procedure Date: March 29, 2018. Reason for visit: Lumbar Spondylosis. Discharge Discharge Date: March 29, 2018. Discharge Diagnosis: Severe Back Pain Instructions Activity Recommendations: 1 Day-May resume regular activity Return to School/Work: no limitations Recommended Home Diet: Resume Previous Diet Allergies Coded Allergies: Tramadol (Verified Adverse Reaction, Mild, DID NOT HELP WITH PAIN RELIEF, 03/29/18) Morphine (Verified Adverse Reaction, Unknown, HEADACHE, STIFF NECK, ) Karen Epps Recommendations: Call your doctor if: * Temperature above 101 degrees * Pain not relieved by pain medicine ordered * There is increased drainage or redness from any incision * You have any unanswered questions or concerns. Your Doctors Instructions noted above were prepared by provider Asaf Patino. Patient Signature Section: Patient Instructions Signature Page Telma Vo Patient (or Guardian) Signature/Date: I have read and understand the instructions given to me by my caregivers. Caregiver/RN/Doctor Signature/Date: The above-named patient and/or guardian has received patient instructions on this date. + Original Patient Signature Page (only) stays with chart. Please make copy for patient.
[2018-03-29] MEDS ORDERED: ACETAMINOPHEN 500 MG TAB PO PRN (09:15)
--- NOTE | 2018-03-29 09:22 | DIAGNOSTIC IMAGING REPORT ---
CT LUMBAR SPINE POST MYELOGRAM CT DOSE: 732.96 mGy.cm CLINICAL HISTORY: Severe back pain. TECHNIQUE: Following a diagnostic lumbar myelogram, CT scanning was performed. Helical images were acquired in the transverse plane. Sagittal and coronal reformatted images were acquired. A dose lowering technique was utilized adhering to the principles of ALARA. COMPARISON STUDY: Conventional radiographic study the lumbar spine dated 04/27/2015 FINDINGS: L1-2 level: There is no evidence of disc bulge or focal herniation. There is no evidence of spinal or foraminal stenosis L2 to-3 level: There is no evidence of disc bulge or focal herniation. There is no evidence of spinal or foraminal stenosis L3-4 level: There is a mild circumferential disc bulge. There is mild spinal stenosis. There is no significant foraminal narrowing. L4-5 level: There is circumferential disc bulge. There is mild spinal stenosis. There is no significant foraminal narrowing L5-S1 level: There are postsurgical changes of a discectomy and laminectomy and posterior spinal fusion. There is no evidence of disc bulge or herniation. There is no evidence of spinal or foraminal stenosis. Incidental note is made of a small right sacral nerve sleeve cyst at the S2 level of the right IMPRESSION: 1. Postsurgical changes at the L5-S1 level 2. Mild spondylitic changes. Mild disc bulges the L3-4 and L4-5 levels with secondary mild spinal stenosis Electronically signed by: Asaf Patino M.D. 03/29/2018 9:21 AM Dictated Date/Time: 03/29/2018 9:17 AM
--- NOTE | 2018-03-29 09:26 | DIAGNOSTIC IMAGING REPORT ---
DIAGNOSTIC LUMBAR MYELOGRAM CLINICAL HISTORY: Severe back pain COMPARISON STUDY: CT scan dated 10/25/2016 FINDINGS: A timeout was performed. The risks the procedure were explained to the patient and informed consent was obtained. The patient was prepped and draped in sterile fashion. The skin was anesthetized 1% lidocaine. Under fluoroscopic guidance, a lumbar puncture was performed at the L3 level utilizing a 22-gauge spinal needle. 12 cc of Isovue-M 200, was instilled into the thecal sac. There is no evidence of nerve root amputation. There are mild disc bulges at the L3-4 and L4-5 levels. There are postsurgical changes of an L5-S1 discectomy and interbody fusion with posterior pedicle screw fixation The patient tolerated the procedure well and will be observed in the assurance services manager health care unit prior to anticipated discharge later today IMPRESSION: 1. Disc bulges at the L3-4, and L4-5 levels 2. Postsurgical changes at the L5-S1 level Electronically signed by: Asaf Patino M.D. 03/29/2018 9:25 AM Dictated Date/Time: 03/29/2018 9:21 AM
== END 2018-03-29 12:52 | disposition home or self-care (01) ==
LOC: C.ACU 07:03
PROVIDERS: ATTEND Orthopaedic Surgery Orthopaedic Surgery of the Spine
DX: M47.817 Spondylosis without myelopathy or radiculopathy, lumbosacral region (principal)

== ENCOUNTER 2020-04-26 01:59 | Inpatient (IN) ==
[2020-04-26] MEDS ORDERED: SODIUM CHLORIDE 0.9% 1000ML 1,000 ML IV ONE (02:33)
[2020-04-26] MEDS ORDERED: ONDANSETRON INJ 2 MG/ML 2 ML VIAL IV STA (02:33)
[2020-04-26] MEDS ORDERED: fentaNYL citrate 100 MCG/2 ML VIAL IV STA ×2 (02:33→04:16)
[2020-04-26] MEDS ORDERED: cefTRIAXone SODIUM 2,000 MG/70 ML BAG IV STA (02:33)
[2020-04-26 02:55] LABS: Basophils # (auto) 0.04 K/uL (0-0.2); Basophils % (auto) 0.4 %; Eosinophils # (auto) 0.13 K/uL (0-0.5); Eosinophils % (auto) 1.4 %; Hematocrit (blood only) 38.3 % (37-47); Hemoglobin 12.6 g/dL (12.0-16.0); Immature Granulocytes # (auto) 0.02 K/uL (0.00-0.02); Immature Granulocytes % (auto) 0.2 %; Lymphocytes # (auto) 1.61 K/uL (1.2-3.4); Lymphocytes % (auto) 17.8 %; Mean Corpuscular Hemoglobin 28.6 pg (25-34); Mean Corpuscular Hgb Conc 32.9 g/dL (32-36); Mean Corpuscular Volume 86.8 fL (80-100); Mean Platelet Volume 9.8 fL (7.4-10.4); Monocytes # (auto) 0.99 K/uL (0.11-0.59); Neutrophils # (auto) 6.24 K/uL (1.4-6.5); Neutrophils % (auto) 69.2 %; Platelet Count 219 K/uL (130-400); RDW Coefficient of Variation 12.9 % (11.5-14.5); RDW Standard Deviation 41.9 fL (36.4-46.3); Red Blood Count 4.41 M/uL (4.2-5.4); White Blood Count 9.03 K/uL (4.8-10.8)
--- NOTE | 2020-04-26 03:09 | Emergency Department Note ---
History of Present Illness General Chief complaint: Neck Injury/Pain Stated complaint: ABSCESS ON NECK, PAIN WORSENING History of Present Illness Maximum Pain Intensity: 9 This 39-year-old presents to the ER complaining of right upper chest right-sided neck pain and infection who was seen here yesterday afternoon and had it drained Location: Right side base of neck Quality: Painful Severity: Moderate Duration: Past few days Timing: Started after getting bit by a tick on April 14 Context: Symptoms got worse and patient came in Modifying factors: better with nothing; worse with palpation Patient went to urgent care and had a negative Lyme's test the other day. Patient was seen here yesterday and had the abscess drained and was placed on antibiotics. Everything is gotten much worse. Patient denies chest pain, dyspnea, fevers, flulike illness. Home Medications Home Medications Medication Instructions Recorded Confirmed Type bupropion HCl [Wellbutrin XL] 300 mg PO DAILY 04/25/20 04/26/20 History cetirizine [Allergy Relief 10 mg PO DAILY PRN 04/25/20 04/26/20 History (cetirizine)] fluoxetine [Prozac] 20 mg PO DAILY 04/25/20 04/26/20 History fluoxetine [Prozac] 40 mg PO DAILY 04/25/20 04/26/20 History hydroxyzine HCl 25 mg PO Q6 PRN 04/25/20 04/26/20 History omeprazole 40 mg PO CQWK 04/25/20 04/26/20 History cephalexin [Keflex] 500 mg PO QID 04/26/20 04/26/20 History Allergies Allergy/AdvReac Type Severity Reaction Status Date / Time morphine AdvReac Severe HEADACHE, Verified 04/26/20 02:51 STIFF NECK tramadol AdvReac Mild DID NOT Verified 04/26/20 02:51 HELP WITH PAIN RELIEF Past Med/Surg History Medical History Anxiety Chronic back pain STENOSIS Degenerative disc disease LUMBAR Degenerative disc disease, lumbar (Deleted) Depression Fibromyalgia GERD (gastroesophageal reflux disease) Hx of Clostridium difficile infection 2014 > [facility] [place] Migraine Pulmonary embolism 2015 > blood thinners Surgical History History of cholecystectomy History of colonoscopy History of esophagogastroduodenoscopy (EGD) History of knee surgery left knee X 2-OPEN AND ARTHROSCOPIC Hx of shoulder surgery right shoulder SCOPE S/P laparoscopic hysterectomy (Resolved) OVARIES REMAIN S/P lumbar spinal fusion (Resolved) Family History Grandfather Family history of diabetes mellitus Grandmother Family history of diabetes mellitus Grandmother Family hx of colon cancer Other Cancer Diabetes Gall bladder disease Heart disease Hypertension Lung disease Social History Preferred Language: [place] Communication Ability: Effective Visual Impairment: No Limitations Box Cutter Required: No Beliefs That Will Affect Care: Yazidi Yazidi Beliefs: JEHOVIAH WITTNESS> NO BLOOD Current Living Situation: Spouse Current Living Situation Comment: [facility] Feels Safe at Home: Yes Smoking Status: Never smoker Second Hand Exposure: No ; Hx Alcohol Use: Yes Alcohol type: wine and hard liquor Hx Substance Use: Yes substance use type: marijuana Substance Use Type Other:: MARIJUANA CARD > USES AT HS Review of Systems A total of 10 systems reviewed and were otherwise negative Physical Exam Vital Signs Vital Signs - 24 hr 04/26/20 02:04 04/26/20 02:45 04/26/20 03:43 Temperature 37.3 C Temperature Source Oral Pulse Rate 97 H 75 Pulse Rate [Finger] 72 Respiratory Rate 18 18 Respiratory Effort / Characteristics Non-Labored Non-Labored Spontaneous Respiratory Depth Normal Normal Respiratory Pattern Regular Blood Pressure 163/86 H Blood Pressure [Left Arm] 122/74 Blood Pressure Mean 111 Blood Pressure Mean [Left Arm] 90 Blood Pressure Position [Left Arm] Lying Pulse Oximetry 97 96 95 Oxygen Delivery Method Room Air Room Air Room Air Sepsis Recent Fever Within 48 Hours No Sepsis New/Unexplained Change in Mental Status No Sepsis Action Taken by Nursing No Action Required VITALS: Vitals are noted on the nurse's note and reviewed by myself. Vital signs hypertensive. GENERAL: Pleasant female who appears in pain, in no acute distress, nondiaphoretic, well-developed well-nourished. SKIN: Right upper chest at the base of the right side of the neck erythematous with healing scab 8 cm x 8 cm tender to palpation, the rest of the skin was without rashes, erythema, edema, or bruising. There is no tenting of the skin. Capillary reflex less than 2 seconds. HEAD: Normocephalic atraumatic. EARS: External auditory canals clear, tympanic membranes pearly hicks without erythema or effusion bilaterally. EYES: Pupils equal round and reactive to light and accommodation. Conjunctivae without injection, sclerae without icterus. Extraocular movements intact. NOSE: Patent, turbinates without inflammation or discharge. No sinus tenderness. MOUTH: Mucous membranes moist. Pharynx without erythema or exudate. Uvula midline. Airway patent. Tongue does not deviate. NECK: Supple without nuchal rigidity. No lymphadenopathy. No thyromegaly. Cervical spine is nontender. No JVD. HEART: Regular rate and rhythm LUNGS: Clear to auscultation bilaterally without wheezes, rales or rhonchi. No retractions or accessory muscle use. ABDOMEN: Positive bowel sounds x 4. Normal tympanic percussion. Soft, nontender, without masses or organomegaly. Hansen sign negative. No guarding or rebound tenderness. No CVA tenderness MUSCULOSKELETAL: No muscle atrophy, erythema, or edema noted. NEURO: Patient was alert and oriented to person place and time. Normal sensation to light and sharp touch. No focal neurological deficits. Course Administered Medications Ioversol (Optiray 320 100ml) 93 ml IV ONCE PRN PRN Reason: Interaction Checking Stop: 04/30/20 03:43 Last Admin: 04/26/20 03:44 Dose: 93 ml Documented by: [id number] Discontinued Medications Fentanyl Citrate (Fentanyl Citrate) 100 mcg IV NOW STA Stop: 04/26/20 02:34 Last Admin: 04/26/20 02:54 Dose: 100 mcg Documented by: [id number] Fentanyl Citrate (Fentanyl Citrate) 100 mcg IV NOW STA Stop: 04/26/20 04:17 Last Admin: 04/26/20 04:20 Dose: 100 mcg Documented by: [id number] Sodium Chloride (Nss 1000ml) 1,000 mls @ 999 mls/hr IV .Q1H1M ONE Stop: 04/26/20 03:33 Last Infusion: 04/26/20 03:55 Dose: 0 mls/hr Documented by: [id number] Admin: 04/26/20 02:54 Dose: 999 mls/hr Documented by: [id number] Ceftriaxone Sodium (Rocephin) 2,000 mg in 70 mls @ 140 mls/hr IV NOW STA Stop: 04/26/20 03:02 Last Infusion: 04/26/20 04:16 Dose: 0 mls/hr Documented by: [id number] Admin: 04/26/20 03:45 Dose: 140 mls/hr Documented by: [id number] Ondansetron HCl (Zofran) 4 mg IV NOW STA Stop: 04/26/20 02:34 Last Admin: 04/26/20 02:54 Dose: 4 mg Documented by: [id number] Medical Decision Making Medical Records Attestation: I reviewed the patient's medical records. Home Medications Current Medication List: was personally reviewed by ks Laboratory Data Attestation: I reviewed the patient's lab results. Result diagrams: 04/26/20 02:45 04/26/20 02:45 Lab Results 04/26/20 04/26/20 04/26/20 Range/Units 02:45 02:45 02:45 WBC 9.03 (4.8-10.8) K/uL RBC 4.41 (4.2-5.4) M/uL Hgb 12.6 (12.0-16.0) g/dL Hct 38.3 (37-47) % MCV 86.8 (80-100) fL MCH 28.6 (25-34) pg MCHC 32.9 (32-36) g/dL RDW Std Deviation 41.9 (36.4-46.3) fL RDW Coeff of Rm 12.9 (11.5-14.5) % Plt Count 219 (130-400) K/uL MPV 9.8 (7.4-10.4) fL Immature Gran % (Auto) 0.2 % Neut % (Auto) 69.2 % Lymph % (Auto) 17.8 % [place] % (Auto) 11.0 % Eos % (Auto) 1.4 % Baso % (Auto) 0.4 % Immature Gran # (Auto) 0.02 (0.00-0.02) K/uL Neut # (Auto) 6.24 (1.4-6.5) K/uL Lymph # (Auto) 1.61 (1.2-3.4) K/uL [place] # (Auto) 0.99 H (0.11-0.59) K/uL Eos # (Auto) 0.13 (0-0.5) K/uL Baso # (Auto) 0.04 (0-0.2) K/uL Sodium 139 (136-145) mmol/L Potassium 3.7 (3.5-5.1) mmol/L Chloride 107 (98-107) mmol/L Carbon Dioxide 27 (21-32) mmol/L Anion Gap 5.0 (3-11) BUN 13 (7-18) mg/dl Creatinine 1.16 (0.6-1.2) mg/dl Est Cr Clr Drug Dosing 82.4 ml/min Est GFR ( Amer) 67.7 Est GFR (Non-Af Amer) 58.4 BUN/Creatinine Ratio 11.3 (10-20) Glucose 123 H (70-99) mg/dl Lactate 1.3 (0.4-2.0) mmol/L Calcium 8.5 (8.5-10.1) mg/dl Total Bilirubin 0.3 (0.2-1) mg/dl AST 19 (15-37) U/L ALT 35 (12-78) U/L Alkaline Phosphatase 69 (45-117) U/L Total Protein 7.2 (6.4-8.2) gm/dl Albumin 3.4 (3.4-5.0) gm/dl Globulin 3.8 (2.5-4.0) gm/dl Albumin/Globulin Ratio 0.9 (0.9-2) HCG, Qual (Negative) Lyme Disease IgG Ab (Negative) Lyme Disease IgM Ab (Negative) 04/26/20 Range/Units 02:45 WBC (4.8-10.8) K/uL RBC (4.2-5.4) M/uL Hgb (12.0-16.0) g/dL Hct (37-47) % MCV (80-100) fL MCH (25-34) pg MCHC (32-36) g/dL RDW Std Deviation (36.4-46.3) fL RDW Coeff of Rm (11.5-14.5) % Plt Count (130-400) K/uL MPV (7.4-10.4) fL Immature Gran % (Auto) % Neut % (Auto) % Lymph % (Auto) % [place] % (Auto) % Eos % (Auto) % Baso % (Auto) % Immature Gran # (Auto) (0.00-0.02) K/uL Neut # (Auto) (1.4-6.5) K/uL Lymph # (Auto) (1.2-3.4) K/uL [place] # (Auto) (0.11-0.59) K/uL Eos # (Auto) (0-0.5) K/uL Baso # (Auto) (0-0.2) K/uL Sodium (136-145) mmol/L Potassium (3.5-5.1) mmol/L Chloride (98-107) mmol/L Carbon Dioxide (21-32) mmol/L Anion Gap (3-11) BUN (7-18) mg/dl Creatinine (0.6-1.2) mg/dl Est Cr Clr Drug Dosing ml/min Est GFR ( Amer) Est GFR (Non-Af Amer) BUN/Creatinine Ratio (10-20) Glucose (70-99) mg/dl Lactate (0.4-2.0) mmol/L Calcium (8.5-10.1) mg/dl Total Bilirubin (0.2-1) mg/dl AST (15-37) U/L ALT (12-78) U/L Alkaline Phosphatase (45-117) U/L Total Protein (6.4-8.2) gm/dl Albumin (3.4-5.0) gm/dl Globulin (2.5-4.0) gm/dl Albumin/Globulin Ratio (0.9-2) HCG, Qual Negative (Negative) Lyme Disease IgG Ab Negative (Negative) Lyme Disease IgM Ab Negative (Negative) Imaging Data Attestation: I personally reviewed and interpreted this imaging study as follows: Blood Pressure Blood Pressure Findings: Elevated blood pressure Blood Pressure Disposition: Referred to patients primary care provider [facility] Narrative Prior records reviewed and summarized as above. Triage Nursing notes reviewed. The patient's history was concerning for swelling and redness of the skin. Differential diagnosis: Etiologies such as cellulitis, abscess, MRSA infection, Lyme's, tickborne illness, necrotizing fasciitis, dermatitis, drug eruption, as well as others were entertained.. Physical examination: The physical examination was consistent with cellulitis ER treatment provided: Rocephin, IV fluids, fentanyl On reassessment the patient felt better. Diagnostics interpreted by me: The labs revealed negative Lyme's. No leukocytosis Blood cultures pending Negative lactic Imaging studies: CT NECK: COMPARISON: None IMPRESSION: Right lateral neck cutaneous thickening and subcutaneous induration extending into the upper right chest wall compatible with cellulitis. No abscess or soft tissue gas. Given the location, correlate for intertrigo in addition to other etiologies of cellulitis. Small adjacent reactive lymph nodes. INCIDENTAL FINDINGS: Mild cervical spondylosis. Radiologist: Jace Brunner M.D. Chest x-ray with no acute consolidation, pneumothorax or free air per my interpretation Consultation: A consultation was placed with [facility]. The case was discussed and diagnostics were reviewed. The patient was evaluated in the ER for further treatment. This appears to be cellulitis. Patient symptoms have gotten worse. She still moderate amount of pain. Patient is given IV antibiotics. Medicine was consulted. She will be evaluated for admission. By the evaluation outlined above emergent etiologies such as abscess, necrotiz ing fasciitis, as well as others were deemed relatively unlikely. The pt informed about the findings as listed above. All questions were answered and pleased with the treatment. The chart was completed utilizing [employer] Speech voice recognition software. Grammatical errors, random word insertions, pronoun errors, and incomplete sentences are an occassional consequence of this system due to software limitations, ambient noise, and hardware issues. Any formal questions or concerns about the content, text, or information contained within the body of this dictation should be directly addressed to the physician technology assistant for clarification. Impression & Plan Cellulitis of neck, Failure of outpatient treatment Discharge Plan Visit Data Chief Complaint: Neck Injury/Pain Stated Complaint: ABSCESS ON NECK, PAIN WORSENING ED Provider: Tasha Bianchi ED Midlevel Provider: Carolyn Marmolejo Discharge Problem: Cellulitis of neck, Failure of outpatient treatment Patient Disposition: Being Evaluated by Hospitalist Condition: Good Forms Stand Alone Forms: [facility], Virtual Emergency Department, Important Visit Information Prescriptions Prescriptions: No Action cephalexin [Keflex] 500 mg capsule 500 mg PO QID RF: 0 fluoxetine [Prozac] 40 mg capsule 40 mg PO DAILY RF: 0 omeprazole 40 mg capsule,delayed release(DR/EC) 40 mg PO CQWK RF: 0 hydroxyzine HCl 25 mg tablet 25 mg PO Q6 PRN (Reason: Anxiety) RF: 0 fluoxetine [Prozac] 20 mg capsule 20 mg PO DAILY RF: 0 bupropion HCl [Wellbutrin XL] 300 mg tablet extended release 24 hr 300 mg PO DAILY RF: 0 Allergy Relief (cetirizine) 10 mg Capsule 10 mg PO DAILY PRN (Reason: allergies) RF: 0 Referrals Referrals: Kate Clark MD [Primary Care Provider] -
[2020-04-26 03:13] LABS: Albumin Level 3.4 gm/dl (3.4-5.0); BUN Creatinine Ratio 11.3 (10-20); Calcium 8.5 mg/dl (8.5-10.1); Creatinine Clr Calc Pharmacy 82.4 ml/min; Est GFR (African American) 67.7; Est GFR (Non-African American) 58.4; Potassium 3.7 mmol/L (3.5-5.1)
[2020-04-26 03:15] LABS: Albumin Globulin Ratio 0.9 (0.9-2); Bilirubin,Total 0.3 mg/dl (0.2-1); Globulin 3.8 gm/dl (2.5-4.0); Total Protein 7.2 gm/dl (6.4-8.2)
[2020-04-26 03:26] LABS: Pregnancy Test, Serum Negative (Negative)
[2020-04-26 03:41] LABS: Lyme Ab IgG w/WB Rflx Negative (Negative); Lyme Ab IgM w/WB Rflx Negative (Negative)
[2020-04-26] MEDS ORDERED: IOVERSOL 100ml IV PRN (03:44)
[2020-04-26] MEDS ORDERED: ONDANSETRON INJ 2 MG/ML 2 ML VIAL IV PRN (06:10)
[2020-04-26] MEDS ORDERED: CETIRIZINE HCL 10 MG TABLET PO PRN (06:15)
[2020-04-26] MEDS: SODIUM CHLORIDE 0.9% 1000ML 1,000 ML IV SCH ×2 (06:15→21:42)
--- NOTE | 2020-04-26 06:28 | History and Physical Report ---
DATE OF ADMISSION: 04/26/2020 CHIEF COMPLAINT: Neck pain, neck cellulitis. HISTORY OF PRESENT ILLNESS: This is a 39-year-old female with past medical history significant for acute pancreatitis, history of depression, lumbago, who presents with neck cellulitis. The patient had a tick bite on 04/14/2020. [facility] [place]. She thinks that the tick was not there for more than 1 day because it was not engorged. There was some mild redness there, but that was gone the next day, but a couple of days later, she developed erythema there and pain. Then she came to the ER yesterday and there seemed to be a small abscess, it was drained of some greenish pus . Was in urgent care prior to coming to the ER, and was given Keflex, but she was taking it only twice daily. In the ER, Lyme screen was negative and she was given Rocephin and also discharged on Keflex q.i.d. and also Bactrim, but the patient, after going home the pain got worse and she was having severe pain on right side of the neck, radiating to the ear and throat and chest. Has some sweating and headache and seemed to be getting worse, so she came back to the ER. Her hemodynamics are stable, no leukocytosis. All the labs are okay. CT Soft tissue neck was done, there was no obvious abscess seen in the preliminary report, but showed cellulitis. Received a dose of Rocephin in the ER. Denies any blurred vision, no runny nose, no dysphagia, no shortness of breath, no cough, no fevers, no abdominal pain, no nausea. Normal bowel and bladder movements. No blood in the stools or hematuria. No swelling in the legs, no rash anywhere else. ALLERGIES: MORPHINE CAUSES HEADACHE AND STIFF NECK, TRAMADOL DID NOT HELP WITH PAIN RELIEF. PAST MEDICAL HISTORY: As mentioned above. PAST SURGICAL HISTORY: Breast lesion excision, colonoscopy, dental surgery, EGDs. MEDICATIONS: The patient is on Keflex 500 mg p.o. q.i.d., Wellbutrin XL 300 mg p.o. daily, Prozac 60 mg p.o. daily, omeprazole 40 mg p.o. daily, hydroxyzine 25 mg p.o. q. 6 hours p.r.n. FAMILY HISTORY: Significant for paternal grandfather had prostate cancer; paternal grandmother had lung cancer; maternal grandmother has diabetes; mother has kidney stones, hypertension, thyroid disorder. SOCIAL HISTORY: . No smoking. Alcohol socially. No drug use. REVIEW OF SYSTEMS: As per HPI. Rest of the review of systems negative. PHYSICAL EXAMINATION: GENERAL: The patient is obese, not in acute distress. VITAL SIGNS: Temperature 37.3, pulse 72, respiratory rate 18, blood pressure 122/74, oxygen 95% on room air. HEENT: Pupils equal, round, and reactive to light. NECK: Right side of the neck, erythematous lesions seen with centrally some possible slight superficial necrotic areas. CARDIOVASCULAR: S1, S2 heard, regular rate and rhythm, no murmur, no gallop. RESPIRATORY SYSTEM: Normal AP diameter. No accessory muscle use. No wheezing, no crackles. ABDOMEN: Soft, bowel sounds present, nontender. No distention. CENTRAL NERVOUS SYSTEM: Cranial nerves II-XII grossly intact. Nonfocal. EXTREMITIES: No edema, no erythema. LABORATORY DATA: WBC 9, hemoglobin 12.6, hematocrit 38.3, platelets 219. Sodium 139, potassium 3.7, chloride 107, bicarbonate 27, BUN 13, creatinine 1.1, serum glucose 123, lactate 1.3, calcium 8.5, total bilirubin 0.3, AST 19, ALT 35, alkaline phosphatase of 69. HCG negative. Lyme disease negative. IMAGING DATA: Chest x-ray, no acute findings. Soft tissue CT neck, preliminary report, right lateral neck cutaneous thickening and subcutaneous induration extending into the upper right chest wall compatible with cellulitis. No abscess or soft tissue gas. ASSESSMENT AND PLAN: This is a 39-year-old female who presents with tick bite and cellulitis of the neck. 1. Neck cellulitis on the right side and tick bite on 04/14/2020. Lyme screen is negative so far. Failed outpatient treatment. Received empirically IV Rocephin in the ER. Will continue with IV Rocephin and IV doxycycline, IV Dilaudid prn for pain and follow the response. Currently hemodynamically stable. . 2. History of depression. Will continue Prozac and bupropion. 3. Gastroesophageal reflux disease. Continue omeprazole. 4. Deep venous thrombosis prophylaxis, sequential compression devices. DISPOSITION: Admit to medical floor. Expect to discharge home and follow with family doctor. Level 1 full code. MTDD
[2020-04-26] MEDS: HYDROmorphone INJ 0.5 MG/0.5 ML SYR IV PRN ×3 (06:41→18:11)
--- NOTE | 2020-04-26 07:33 | XRay Report ---
XR chest 1V portable CLINICAL HISTORY: SEPSIS COMPARISON STUDY: 05/23/2019 FINDINGS: The cardiac and mediastinal contours are normal. There is no evidence of focal pulmonary co nsolidation. There is no evidence of failure. No pleural effusions are visualized.[ IMPRESSION: No active disease in the chest. ACT 112: Negative or not required by law. Electronically signed by: Asaf Patino M.D. 04/26/2020 7:32 AM
--- NOTE | 2020-04-26 07:59 | CT Scan Report ---
CT OF THE NECK WITH IV CONTRAST CLINICAL HISTORY: right pain of neck infx, ? abscess COMPARISON STUDY: CT of the cervical spine January 27, 2019. TECHNIQUE: Following IV administration of 93 mL of Optiray-320, helical axial images of the neck wer e obtained. Sagittal and coronal reconstructions were viewed. Automated exposure control was utiliz ed for the study. A dose lowering technique was utilized adhering to the principles of ALARA. CT DOSE: 642.89 mGy.cm FINDINGS: Visualized portions of the intracranial contents are unremarkable. The orbits are within n ormal limits. Mastoid air cells are clear. The sinuses are clear. No abscess within neck is noted. Th ere is skin thickening and mild subcutaneous infiltration of the lateral right lower neck extending i nto the right upper chest. No soft tissue gas is present. Prominent lymph nodes are likely reactive. Epiglottis is normal. Parotid and submandibular glands are normal. Major vasculature of the neck is p atent. IMPRESSION: Skin thickening and mild subcutaneous infiltration of the right lower neck and right upp er chest wall suggestive of cellulitis. No abscess. Adjacent prominent lymph nodes are likely reactiv e. ACT 112: Negative or not required by law. Electronically signed by: Xavier Hill M.D. 04/26/2020 7:58 AM
[2020-04-26] MEDS ORDERED: FLUOXETINE HCL 20 MG CAP PO SCH (09:00)
[2020-04-26] MEDS: OXYCODONE/ACETAMINOPHEN 5mg/325mg TAB PO PRN ×3 (09:22→21:42)
[2020-04-26] MEDS: PANTOprazole 40 MG TAB PO SCH (09:23)
[2020-04-26] MEDS: FLUOXETINE HCL 20 MG CAP PO SCH (09:23)
[2020-04-26] MEDS: BuPROPion XL 300 MG TABCR PO SCH (09:24)
[2020-04-26] MEDS: DOXYCYCLINE HYCLATE 100 MG in DEXTROSE 5% 100 ML IV SCH ×2 (09:28→21:42)
--- NOTE | 2020-04-26 11:54 | Hospitalist Progress Note ---
Date of Service April 26, 2020 Assessment & Plan (1) Cellulitis of neck: History obtained by at the lower right anterior neck Initially received Keflex from primary care provider without any improvement Has had incision and drainages of abscess in that location yesterday at [facility] emergency room Was given Keflex and Bactrim and with increasing symptoms she came back yesterday and was admitted Lyme titer has been negative Has been getting intravenous ceftriaxone and doxycycline Clinically wound is a little better with no evidence of abscess Complains some pain (2) Abscess: As above Status post planus point 04/25/2020 (3) Failure of outpatient treatment: Initial antibiotic with Keflex and later on Bactrim added as of day before yesterday We will give strep coverage on discharge with coverage for tick bite (4) Tick bite: Has had tick bite on 04/14/2020 Lyme titer with IgG and IgM have been negative Will cover for Lyme in any way Admission and Anticipated Discharge Date Admission Date: April 26, 2020 Subjective The patient was seen and examined in the medical floor She is a status post bite on right lower neck about 3 or 4 days back She has had I&D for an abscess in that area yesterday in the emergency room and also has been taking oral antibiotic with Keflex and later on Bactrim without any improvement as an outpatient Complains to have pain but denies any fever and/or chills Review of Systems Review of Systems: All systems reviewed and are unremarkable except as noted below Musculoskeletal: Neck pain swelling right lower neck Physical Exam Physical Exam: Lying in bed with discomfort secondary to neck pain Constitutional: well developed, well nourished, + acute distress (Secondary to flu and neck swelling) and + obese; not ill appearing Eyes: PERRL, conjunctivae normal, anicteric sclerae ENMT: external ear and nose normal, oropharynx normal Neck: Right lower neck swelling with inflammation involving approximately 5 x 3 cm area with central eschar. Localized lumpiness without any fluctuation Respiratory: normal respiratory effort; no respiratory distress Auscultation: lungs clear to auscultation bilaterally Cardiovascular: Rate/Rhythm: regular rate and regular rhythm Heart Sounds: no murmur Gastrointestinal (Abdomen): Inspection/Auscultation: abdomen normal to inspection; abdomen not distended Percussion/Palpation: abdomen soft; abdomen nontender Musculoskeletal: No acute arthritis involving any joint Neurologic: moves all extremities; no focal motor deficits Lymphatic: no cervical or axillary lymphadenopathy Results & Data Results & Data ([facility]) Vital Signs (Past 12 Hours) Vital Signs Temp Pulse Pulse Resp BP BP Pulse Ox 04/26/20 07:07 36.5 C 60 15 116/81 98 04/26/20 06:17 36.5 C 67 16 150/98 H 97 04/26/20 05:42 60 18 131/79 96 04/26/20 03:43 72 18 122/74 95 04/26/20 02:45 75 96 04/26/20 02:04 37.3 C 97 H 18 163/86 H 97 Laboratory Results Short CBC 04/26/20 Range/Units 02:45 WBC 9.03 (4.8-10.8) K/uL Hgb 12.6 (12.0-16.0) g/dL Hct 38.3 (37-47) % Plt Count 219 (130-400) K/uL BMP 04/26/20 02:45 Sodium 139 Potassium 3.7 Chloride 107 Carbon Dioxide 27 BUN 13 Creatinine 1.16 Glucose 123 H Calcium 8.5 Liver Function 04/26/20 Range/Units 02:45 Total Bilirubin 0.3 (0.2-1) mg/dl AST 19 (15-37) U/L ALT 35 (12-78) U/L Alkaline Phosphatase 69 (45-117) U/L Albumin 3.4 (3.4-5.0) gm/dl Medications Administered Current Inpatient Medications Acetaminophen (Tylenol) 650 mg PO Q4H PRN PRN Reason: pain/fever Stop: 05/26/20 06:09 Bupropion HCl (Wellbutrin-Xl) 300 mg PO DAILY [facility] Stop: 05/26/20 08:59 Last Admin: 04/26/20 09:24 Dose: 300 mg Documented by: Cetirizine HCl (Zyrtec) 10 mg PO DAILY PRN PRN Reason: Allergic Symptoms Stop: 05/26/20 06:14 Fluoxetine HCl (Prozac) 60 mg PO DAILY [facility] Stop: 05/26/20 08:59 Last Admin: 04/26/20 09:23 Dose: 60 mg Documented by: Hydromorphone HCl (Dilaudid) 0.5 mg IV Q4H PRN PRN Reason: Pain Stop: 05/10/20 06:09 Last Admin: 04/26/20 11:26 Dose: 0.5 mg Documented by: Hydroxyzine HCl (Vistaril) 25 mg PO Q6 PRN PRN Reason: Anxiety Stop: 05/26/20 06:09 Last Admin: 04/26/20 09:27 Dose: 25 mg Documented by: Ceftriaxone Sodium 2,000 mg/ (Dextrose) 70 mls @ 100 mls/hr IV Q24H JA; Protocol Stop: 05/02/20 02:41 Doxycycline Hyclate 100 mg/ (Dextrose) 110 mls @ 50 mls/hr IV Q12H JA Stop: 05/03/20 07:59 Last Admin: 04/26/20 09:28 Dose: 50 mls/hr Documented by: Sodium Chloride (Nss 1000ml) 1,000 mls @ 80 mls/hr IV .[id number] [facility] Stop: 04/27/20 07:00 Last Infusion: 04/26/20 09:28 Dose: 0 mls/hr Documented by: Ondansetron HCl (Zofran) 4 mg IV Q6H PRN PRN Reason: Nausea Stop: 05/26/20 06:09 Oxycodone/Acetaminophen (Percocet 5mg/325mg) 1 tab PO Q4H PRN PRN Reason: Pain Stop: 05/10/20 08:51 Last Admin: 04/26/20 09:22 Dose: 1 tab Documented by: Pantoprazole Sodium (Protonix) 40 mg PO DAILY [facility] Stop: 05/26/20 08:59 Last Admin: 04/26/20 09:23 Dose: 40 mg Documented by: (1) Tick bite Encounter type: initial encounter Qualified Code(s): W57.XXXA - Bitten or stung by nonvenomous insect and other nonvenomous arthropods, initial encounter
[2020-04-26] MEDS ORDERED: COUGH DROP (SUGAR FREE) LOZ 24 LOZ/1 BOX BUCCAL ONE (18:15)
--- NOTE | 2020-04-26 23:35 | Electrocardiogram Report ---
Test Reason : Blood Pressure : / mmHG Vent. Rate : 065 BPM Atrial Rate : 065 BPM P-R Int : 144 ms QRS Dur : 092 ms QT Int : 420 ms P-R-T Axes : 055 033 015 degrees QTc Int : 436 ms Normal sinus rhythm Normal ECG When compared with ECG of 23-MAY-2019 16:57, No significant change was found Confirmed by Sergio Mcnally ([id number]) on 04/26/2020 11:35:36 PM Referred By: REFERRED SELF Confirmed By:Sergio Mcnally
[2020-04-27] MEDS: HYDROmorphone INJ 0.5 MG/0.5 ML SYR IV PRN ×4 (00:04→19:52)
[2020-04-27] MEDS: OXYCODONE/ACETAMINOPHEN 5mg/325mg TAB PO PRN ×4 (01:49→22:59)
[2020-04-27] MEDS ORDERED: cefTRIAXone SODIUM 2,000 MG in DEXTROSE 5% 50 ML IV SCH (02:00)
[2020-04-27 05:57] LABS: Basophils # (auto) 0.03 K/uL (0-0.2); Basophils % (auto) 0.6 %; Eosinophils # (auto) 0.24 K/uL (0-0.5); Eosinophils % (auto) 4.5 %; Hematocrit (blood only) 36.1 % (37-47); Hemoglobin 11.7 g/dL (12.0-16.0); Immature Granulocytes # (auto) 0.01 K/uL (0.00-0.02); Immature Granulocytes % (auto) 0.2 %; Lymphocytes # (auto) 1.88 K/uL (1.2-3.4); Lymphocytes % (auto) 35.1 %; Mean Corpuscular Hemoglobin 28.5 pg (25-34); Mean Corpuscular Hgb Conc 32.4 g/dL (32-36); Mean Platelet Volume 9.6 fL (7.4-10.4); Monocytes # (auto) 0.58 K/uL (0.11-0.59); Monocytes % (auto) 10.8 %; Neutrophils # (auto) 2.62 K/uL (1.4-6.5); Neutrophils % (auto) 48.8 %; Platelet Count 192 K/uL (130-400); RDW Coefficient of Variation 13.1 % (11.5-14.5); RDW Standard Deviation 42.1 fL (36.4-46.3); White Blood Count 5.36 K/uL (4.8-10.8)
[2020-04-27 06:30] LABS: BUN Creatinine Ratio 10.8 (10-20); Creatinine Clr Calc Pharmacy 77.9 ml/min; Est GFR (African American) 72.2; Est GFR (Non-African American) 62.3; Potassium 4.1 mmol/L (3.5-5.1)
[2020-04-27] MEDS: BuPROPion XL 300 MG TABCR PO SCH (07:48)
[2020-04-27] MEDS: PANTOprazole 40 MG TAB PO SCH (07:49)
[2020-04-27] MEDS: FLUOXETINE HCL 20 MG CAP PO SCH (07:49)
[2020-04-27] MEDS: DOXYCYCLINE HYCLATE 100 MG in DEXTROSE 5% 100 ML IV SCH ×2 (09:19→20:48)
[2020-04-27] MEDS: AMPICILLIN/SULBACTAM SOD 3,000 MG in 0.9 % SODIUM CHLORIDE 100 ML IV SCH ×2 (14:42→19:46)
--- NOTE | 2020-04-27 15:09 | Hospitalist Progress Note ---
Date of Service April 27, 2020 Assessment & Plan (1) Cellulitis of neck: History obtained by at the lower right anterior neck Initially received Keflex from primary care provider without any improvement Has had incision and drainages of abscess in that location yesterday at [facility] emergency room Was given Keflex and Bactrim and with increasing symptoms she came back yesterday and was admitted Lyme titer has been negative Has been getting intravenous ceftriaxone and doxycycline Clinically worse today with increasing swelling and pain Will change antibiotic to intravenous Unasyn and IV doxycycline to be continued Blood cultures have been negative If better likely be discharged tomorrow (2) Abscess: As above Status post planus point 04/25/2020 (3) Failure of outpatient treatment: Initial antibiotic with Keflex and later on Bactrim added as of day before yesterday We will give strep coverage on discharge with coverage for tick bite (4) Tick bite: Has had tick bite on 04/14/2020 Lyme titer with IgG and IgM have been negative Will cover for Lyme in any way Admission and Anticipated Discharge Date Admission Date: April 26, 2020 Subjective The patient was seen and examined in the medical floor She is a status post bite on right lower neck about 3 or 4 days back She has had I&D for an abscess in that area yesterday in the emergency room and also has been taking oral antibiotic with Keflex and later on Bactrim without any improvement as an outpatient Complains to have pain but denies any fever and/or chills 04/27/2020 The patient was seen and examined in medical floor She complains today of increasing pain in the right lower neck and throat Denies any fever and/or chills Review of Systems Review of Systems: All systems reviewed and are unremarkable except as noted below Musculoskeletal: Neck pain swelling right lower neck Physical Exam Physical Exam: Lying in bed with discomfort secondary to neck pain Constitutional: well developed, well nourished, + acute distress (Secondary to flu and neck swelling) and + obese; not ill appearing Eyes: PERRL, conjunctivae normal, anicteric sclerae ENMT: external ear and nose normal, oropharynx normal Neck: Increasing swelling and redness involving the right lower neck anteriorly. Enlarged lymph nodes and tender lymph nodes right anterior cervical chain Respiratory: normal respiratory effort; no respiratory distress Auscultation: lungs clear to auscultation bilaterally Cardiovascular: Rate/Rhythm: regular rate and regular rhythm Heart Sounds: no murmur Gastrointestinal (Abdomen): Inspection/Auscultation: abdomen normal to inspection; abdomen not distended Percussion/Palpation: abdomen soft; abdomen nontender Neurologic: moves all extremities; no focal motor deficits Lymphatic: no cervical or axillary lymphadenopathy Results & Data Results & Data ([facility]) Vital Signs (Past 12 Hours) Vital Signs Temp Pulse Resp BP Pulse Ox 04/27/20 06:55 36.3 C L 63 16 124/81 94 Laboratory Results Short CBC 04/27/20 Range/Units 05:48 WBC 5.36 (4.8-10.8) K/uL Hgb 11.7 L (12.0-16.0) g/dL Hct 36.1 L (37-47) % Plt Count 192 (130-400) K/uL BMP 04/27/20 05:48 Sodium 140 Potassium 4.1 Chloride 107 Carbon Dioxide 29 BUN 12 Creatinine 1.10 Glucose 87 Calcium 8.0 L Medications Administered Current Inpatient Medications Acetaminophen (Tylenol) 650 mg PO Q4H PRN PRN Reason: pain/fever Stop: 05/26/20 06:09 Bupropion HCl (Wellbutrin-Xl) 300 mg PO DAILY [facility] Stop: 05/26/20 08:59 Last Admin: 04/27/20 07:48 Dose: 300 mg Documented by: Cetirizine HCl (Zyrtec) 10 mg PO DAILY PRN PRN Reason: Allergic Symptoms Stop: 05/26/20 06:14 Fluoxetine HCl (Prozac) 60 mg PO DAILY [facility] Stop: 05/26/20 08:59 Last Admin: 04/27/20 07:49 Dose: 60 mg Documented by: Hydromorphone HCl (Dilaudid) 0.5 mg IV Q4H PRN PRN Reason: Pain Stop: 05/10/20 06:09 Last Admin: 04/27/20 14:42 Dose: 0.5 mg Documented by: Hydroxyzine HCl (Vistaril) 25 mg PO Q6 PRN PRN Reason: Anxiety Stop: 05/26/20 06:09 Last Admin: 04/27/20 07:47 Dose: 25 mg Documented by: Doxycycline Hyclate 100 mg/ (Dextrose) 110 mls @ 50 mls/hr IV Q12H JA Stop: 05/03/20 07:59 Last Infusion: 04/27/20 12:06 Dose: Infused Documented by: Ampicillin Sodium/Sulbactam Sodium 3,000 mg/ Sodium Chloride 108 mls @ 200 mls/hr IV Q6H JA; Protocol Stop: 05/04/20 12:59 Last Admin: 04/27/20 14:42 Dose: 200 mls/hr Documented by: Ondansetron HCl (Zofran) 4 mg IV Q6H PRN PRN Reason: Nausea Stop: 05/26/20 06:09 Oxycodone/Acetaminophen (Percocet 5mg/325mg) 1 tab PO Q4H PRN PRN Reason: Pain Stop: 05/10/20 08:51 Last Admin: 04/27/20 07:48 Dose: 1 tab Documented by: Pantoprazole Sodium (Protonix) 40 mg PO DAILY [facility] Stop: 05/26/20 08:59 Last Admin: 04/27/20 07:49 Dose: 40 mg Documented by: (1) Tick bite Encounter type: initial encounter Qualified Code(s): W57.XXXA - Bitten or stung by nonvenomous insect and other nonvenomous arthropods, initial encounter
[2020-04-28] MEDS: HYDROmorphone INJ 0.5 MG/0.5 ML SYR IV PRN ×4 (00:45→21:49)
[2020-04-28] MEDS: AMPICILLIN/SULBACTAM SOD 3,000 MG in 0.9 % SODIUM CHLORIDE 100 ML IV SCH ×4 (00:50→18:52)
[2020-04-28] MEDS: OXYCODONE/ACETAMINOPHEN 5mg/325mg TAB PO PRN ×4 (07:29→23:46)
[2020-04-28] MEDS: BuPROPion XL 300 MG TABCR PO SCH (07:30)
[2020-04-28] MEDS: FLUOXETINE HCL 20 MG CAP PO SCH (07:30)
[2020-04-28] MEDS: PANTOprazole 40 MG TAB PO SCH (07:30)
[2020-04-28] MEDS ORDERED: MAGNESIUM HYDROXIDE SUSP 30 ML UDC PO ONE (07:48)
[2020-04-28] MEDS: DOXYCYCLINE HYCLATE 100 MG in DEXTROSE 5% 100 ML IV SCH ×2 (09:24→19:32)
--- NOTE | 2020-04-28 13:08 | Hospitalist Progress Note ---
Date of Service April 28, 2020 Assessment & Plan (1) Cellulitis of neck: History obtained by at the lower right anterior neck Initially received Keflex from primary care provider without any improvement Has had incision and drainages of abscess in that location yesterday at [facility] emergency room Was given Keflex and Bactrim and with increasing symptoms she came back yesterday and was admitted Lyme titer has been negative Has been getting intravenous ceftriaxone and doxycycline Clinically worse today with increasing swelling and pain Will change antibiotic to intravenous Unasyn and IV doxycycline to be continued Blood cultures have been negative Not any better compared with yesterday as per the patient The wound itself is showing improvement Was advised to ambulate (2) Abscess: As above Status post planus point 04/25/2020 There is fluctuation we will get an ultrasound tomorrow (3) Failure of outpatient treatment: Initial antibiotic with Keflex and later on Bactrim added as of day before yesterday We will give strep coverage on discharge with coverage for tick bite (4) Tick bite: Has had tick bite on 04/14/2020 Lyme titer with IgG and IgM have been negative Will cover for Lyme in any way Admission and Anticipated Discharge Date Admission Date: April 26, 2020 Subjective The patient was seen and examined in the medical floor She is a status post bite on right lower neck about 3 or 4 days back She has had I&D for an abscess in that area yesterday in the emergency room and also has been taking oral antibiotic with Keflex and later on Bactrim without any improvement as an outpatient Complains to have pain but denies any fever and/or chills 04/27/2020 The patient was seen and examined in medical floor She complains today of increasing pain in the right lower neck and throat Denies any fever and/or chills 04/28/2020 Patient was seen and examined in the medical floor She complains of more pain involving the right lower anterior neck Denies any fever and/or chills Denies any problem with swallowing Review of Systems Review of Systems: All systems reviewed and are unremarkable except as noted below Musculoskeletal: Neck pain swelling right lower neck Physical Exam Physical Exam: Lying in bed with discomfort secondary to neck pain Constitutional: well developed, well nourished, + acute distress (Secondary to flu and neck swelling) and + obese; not ill appearing Eyes: PERRL, conjunctivae normal, anicteric sclerae ENMT: external ear and nose normal, oropharynx normal Neck: Right lower anterior neck lesion seems to be improved. No fluctuation bacterial areas swell with tenderness warm palpation. Anterior cervical lymph nodes are enlarged Respiratory: normal respiratory effort; no respiratory distress Auscultation: lungs clear to auscultation bilaterally Cardiovascular: Rate/Rhythm: regular rate and regular rhythm Heart Sounds: no murmur Gastrointestinal (Abdomen): Inspection/Auscultation: abdomen normal to inspection; abdomen not distended Percussion/Palpation: abdomen soft; abdomen nontender Neurologic: moves all extremities; no focal motor deficits Lymphatic: + cervical lymphadenopathy (Right lower anterior cervical) Results & Data Results & Data ([facility]) Vital Signs (Past 12 Hours) Vital Signs Temp Pulse Resp BP Pulse Ox 04/28/20 07:07 36.7 C 88 18 140/83 94 Medications Administered Current Inpatient Medications Acetaminophen (Tylenol) 650 mg PO Q4H PRN PRN Reason: pain/fever Stop: 05/26/20 06:09 Bupropion HCl (Wellbutrin-Xl) 300 mg PO DAILY [facility] Stop: 05/26/20 08:59 Last Admin: 04/28/20 07:30 Dose: 300 mg Documented by: Cetirizine HCl (Zyrtec) 10 mg PO DAILY PRN PRN Reason: Allergic Symptoms Stop: 05/26/20 06:14 Fluoxetine HCl (Prozac) 60 mg PO DAILY [facility] Stop: 05/26/20 08:59 Last Admin: 04/28/20 07:30 Dose: 60 mg Documented by: Hydromorphone HCl (Dilaudid) 0.5 mg IV Q4H PRN PRN Reason: Pain Stop: 05/10/20 06:09 Last Admin: 04/28/20 06:24 Dose: 0.5 mg Documented by: Hydroxyzine HCl (Vistaril) 25 mg PO Q6 PRN PRN Reason: Anxiety Stop: 05/26/20 06:09 Last Admin: 04/27/20 07:47 Dose: 25 mg Documented by: Doxycycline Hyclate 100 mg/ (Dextrose) 110 mls @ 50 mls/hr IV Q12H JA Stop: 05/03/20 07:59 Last Infusion: 04/28/20 11:51 Dose: Infused Documented by: Ampicillin Sodium/Sulbactam Sodium 3,000 mg/ Sodium Chloride 108 mls @ 200 mls/hr IV Q6H JA; Protocol Stop: 05/04/20 12:59 Last Infusion: 04/28/20 07:24 Dose: Infused Documented by: Ondansetron HCl (Zofran) 4 mg IV Q6H PRN PRN Reason: Nausea Stop: 05/26/20 06:09 Oxycodone/Acetaminophen (Percocet 5mg/325mg) 1 tab PO Q4H PRN PRN Reason: Pain Stop: 05/10/20 08:51 Last Admin: 04/28/20 07:29 Dose: 1 tab Documented by: Pantoprazole Sodium (Protonix) 40 mg PO DAILY [facility] Stop: 05/26/20 08:59 Last Admin: 04/28/20 07:30 Dose: 40 mg Documented by: (1) Tick bite Encounter type: initial encounter Qualified Code(s): W57.XXXA - Bitten or stung by nonvenomous insect and other nonvenomous arthropods, initial encounter
[2020-04-28] MEDS: ACETAMINOPHEN 325 MG TAB PO PRN (22:09)
[2020-04-29] MEDS: AMPICILLIN/SULBACTAM SOD 3,000 MG in 0.9 % SODIUM CHLORIDE 100 ML IV SCH ×3 (00:06→13:08)
[2020-04-29] MEDS: HYDROmorphone INJ 0.5 MG/0.5 ML SYR IV PRN ×4 (01:52→21:45)
[2020-04-29] MEDS: OXYCODONE/ACETAMINOPHEN 5mg/325mg TAB PO PRN ×4 (06:12→23:55)
[2020-04-29] MEDS: BuPROPion XL 300 MG TABCR PO SCH (08:17)
[2020-04-29] MEDS: PANTOprazole 40 MG TAB PO SCH (08:17)
[2020-04-29] MEDS: FLUOXETINE HCL 20 MG CAP PO SCH (08:17)
[2020-04-29] MEDS ORDERED: COUGH DROP (SUGAR FREE) LOZ 24 LOZ/1 BOX BUCCAL ONE (08:22)
[2020-04-29] MEDS: DOXYCYCLINE HYCLATE 100 MG in DEXTROSE 5% 100 ML IV SCH (08:24)
[2020-04-29] MEDS: ACETAMINOPHEN 325 MG TAB PO PRN (11:22)
--- NOTE | 2020-04-29 15:51 | Hospitalist Progress Note ---
Date of Service April 29, 2020 Assessment & Plan (1) Cellulitis of neck: History obtained by at the lower right anterior neck Initially received Keflex from primary care provider without any improvement Has had incision and drainages of abscess in that location yesterday at [facility] emergency room Was given Keflex and Bactrim and with increasing symptoms she came back yesterday and was admitted Lyme titer has been negative Has been getting intravenous ceftriaxone and doxycycline Clinically worse today with increasing swelling and pain Will change antibiotic to intravenous Unasyn and IV doxycycline to be continued Blood cultures have been negative Not any better compared with yesterday as per the patient The wound itself is showing improvement Was advised to ambulate Clinically a lot better today We will change IV antibiotic to oral Likely discharge tomorrow (2) Abscess: As above Status post planus point 04/25/2020 There is fluctuation we will get an ultrasound tomorrow 04/29/2020 Swelling has decreased and there is no fluctuation at that area Redness has decreased to (3) Failure of outpatient treatment: Initial antibiotic with Keflex and later on Bactrim added as of day before yesterday We will give strep coverage on discharge with coverage for tick bite We will continue with Augmentin and doxycycline as an outpatient on discharge (4) Tick bite: Has had tick bite on 04/14/2020 Lyme titer with IgG and IgM have been negative Will cover for Lyme in any way Admission and Anticipated Discharge Date Admission Date: April 26, 2020 Subjective The patient was seen and examined in the medical floor She is a status post bite on right lower neck about 3 or 4 days back She has had I&D for an abscess in that area yesterday in the emergency room and also has been taking oral antibiotic with Keflex and later on Bactrim without any improvement as an outpatient Complains to have pain but denies any fever and/or chills 04/27/2020 The patient was seen and examined in medical floor She complains today of increasing pain in the right lower neck and throat Denies any fever and/or chills 04/28/2020 Patient was seen and examined in the medical floor She complains of more pain involving the right lower anterior neck Denies any fever and/or chills Denies any problem with swallowing 04/29/2020 The patient was seen and examined in the medical floor She has been complaining of less pain involving the right lower neck and less swelling Still not yet ready to be discharged Has been draining minimal pus from that area Review of Systems Review of Systems: All systems reviewed and are unremarkable except as noted below Musculoskeletal: Neck pain swelling right lower neck Physical Exam Physical Exam: Lying in bed with discomfort secondary to neck pain Constitutional: well developed, well nourished, + acute distress (Secondary to flu and neck swelling) and + obese; not ill appearing Eyes: PERRL, conjunctivae normal, anicteric sclerae ENMT: external ear and nose normal, oropharynx normal Neck: Right lower anterior neck cellulitis has been improving with decreasing swelling and redness Respiratory: normal respiratory effort; no respiratory distress A uscultation: lungs clear to auscultation bilaterally Cardiovascular: Rate/Rhythm: regular rate and regular rhythm Heart Sounds: no murmur Gastrointestinal (Abdomen): Inspection/Auscultation: abdomen normal to inspection; abdomen not distended Percussion/Palpation: abdomen soft; abdomen nontender Neurologic: moves all extremities; no focal motor deficits Lymphatic: no cervical or axillary lymphadenopathy + cervical lymphadenopathy (Right lower anterior cervical) Results & Data Results & Data ([facility]) Vital Signs (Past 12 Hours) Vital Signs Temp Pulse Resp BP Pulse Ox 04/29/20 15:07 36.4 C L 71 16 120/75 95 04/29/20 07:20 36.7 C 76 16 118/78 93 Medications Administered Current Inpatient Medications Acetaminophen (Tylenol) 650 mg PO Q4H PRN PRN Reason: pain/fever Stop: 05/26/20 06:09 Last Admin: 04/29/20 11:22 Dose: 650 mg Documented by: Amoxicillin/Clavulanate Potassium (Augmentin 875mg) 1 tab PO BIDM [facility] Stop: 05/04/20 16:59 Bupropion HCl (Wellbutrin-Xl) 300 mg PO DAILY [facility] Stop: 05/26/20 08:59 Last Admin: 04/29/20 08:17 Dose: 300 mg Documented by: Cetirizine HCl (Zyrtec) 10 mg PO DAILY PRN PRN Reason: Allergic Symptoms Stop: 05/26/20 06:14 Doxycycline Hyclate (Vibramycin) 100 mg PO BID [facility] Stop: 05/03/20 20:59 Fluoxetine HCl (Prozac) 60 mg PO DAILY [facility] Stop: 05/26/20 08:59 Last Admin: 04/29/20 08:17 Dose: 60 mg Documented by: Hydromorphone HCl (Dilaudid) 0.5 mg IV Q4H PRN PRN Reason: Pain Stop: 05/10/20 06:09 Last Admin: 04/29/20 15:16 Dose: 0.5 mg Documented by: Hydroxyzine HCl (Vistaril) 25 mg PO Q6 PRN PRN Reason: Anxiety Stop: 05/26/20 06:09 Last Admin: 04/29/20 13:07 Dose: 25 mg Documented by: Ondansetron HCl (Zofran) 4 mg IV Q6H PRN PRN Reason: Nausea Stop: 05/26/20 06:09 Oxycodone/Acetaminophen (Percocet 5mg/325mg) 1 tab PO Q4H PRN PRN Reason: Pain Stop: 05/10/20 08:51 Last Admin: 04/29/20 13:12 Dose: 1 tab Documented by: Pantoprazole Sodium (Protonix) 40 mg PO DAILY [facility] Stop: 05/26/20 08:59 Last Admin: 04/29/20 08:17 Dose: 40 mg Documented by: (1) Tick bite Encounter type: initial encounter Qualified Code(s): W57.XXXA - Bitten or stung by nonvenomous insect and other nonvenomous arthropods, initial encounter
[2020-04-29] MEDS: AMOXICILLIN/CLAVULANATE 875 MG TAB PO SCH (16:41)
[2020-04-29] MEDS: DOXYCYCLINE HYCLATE 100 MG CAP PO SCH (21:45)
[2020-04-30] MEDS: HYDROmorphone INJ 0.5 MG/0.5 ML SYR IV PRN ×2 (02:05→07:48)
[2020-04-30] MEDS: OXYCODONE/ACETAMINOPHEN 5mg/325mg TAB PO PRN ×2 (05:38→11:26)
[2020-04-30] MEDS: FLUOXETINE HCL 20 MG CAP PO SCH (08:57)
[2020-04-30] MEDS: BuPROPion XL 300 MG TABCR PO SCH (08:58)
[2020-04-30] MEDS: PANTOprazole 40 MG TAB PO SCH (08:58)
[2020-04-30] MEDS: AMOXICILLIN/CLAVULANATE 875 MG TAB PO SCH (08:58)
[2020-04-30] MEDS: DOXYCYCLINE HYCLATE 100 MG CAP PO SCH (08:58)
--- NOTE | 2020-04-30 12:33 | Hospitalist Progress Note ---
Date of Service April 30, 2020 Assessment & Plan (1) Cellulitis of neck: History obtained by at the lower right anterior neck Initially received Keflex from primary care provider without any improvement Has had incision and drainages of abscess in that location yesterday at [facility] emergency room Was given Keflex and Bactrim and with increasing symptoms she came back yesterday and was admitted Lyme titer has been negative Has been getting intravenous ceftriaxone and doxycycline Clinically worse today with increasing swelling and pain Will change antibiotic to intravenous Unasyn and IV doxycycline to be continued Blood cultures have been negative Not any better compared with yesterday as per the patient The wound itself is showing much improvement She has been ambulating around the hallways Still complains to have some soreness No fever and/or chills Will repeat Lyme titer Will continue treatment for Lyme disease with doxycycline for 21 days Continue Augmentin for 7 days (2) Abscess: As above Status post planus point 04/25/2020 There is fluctuation we will get an ultrasound tomorrow 04/29/2020 Swelling has decreased and there is no fluctuation at that area Redness has decreased too No fluctuation at the local area and no drainage (3) Failure of outpatient treatment: Initial antibiotic with Keflex and later on Bactrim added as of day before yesterday We will give strep coverage on discharge with coverage for tick bite We will continue with Augmentin and doxycycline as an outpatient on discharge (4) Tick bite: Has had tick bite on 04/14/2020 Lyme titer with IgG and IgM have been negative Will cover for Lyme in any way Will continue doxycycline for 2 more weeks Repeat Lyme titer Admission and Anticipated Discharge Date Admission Date: April 26, 2020 Subjective The patient was seen and examined in the medical floor She is a status post bite on right lower neck about 3 or 4 days back She has had I&D for an abscess in that area yesterday in the emergency room and also has been taking oral antibiotic with Keflex and later on Bactrim without any improvement as an outpatient Complains to have pain but denies any fever and/or chills 04/27/2020 The patient was seen and examined in medical floor She complains today of increasing pain in the right lower neck and throat Denies any fever and/or chills 04/28/2020 Patient was seen and examined in the medical floor She complains of more pain involving the right lower anterior neck Denies any fever and/or chills Denies any problem with swallowing 04/29/2020 The patient was seen and examined in the medical floor She has been complaining of less pain involving the right lower neck and less swelling Still not yet ready to be discharged Has been draining minimal pus from that area 04/30/2020 The patient was seen and examined in medical floor She has been feeling a lot better but still has considerable soreness in the Local area of the neck Denies any fever and Has been ambulating without any problem Review of Systems Review of Systems: All systems reviewed and are unremarkable except as noted below Musculoskeletal: Neck pain and swelling right lower neck Physical Exam Physical Exam: Sitting at the edge of the bed without any acute distress Constitutional: well developed, well nourished, + acute distress (Secondary to flu and neck swelling) and + obese; not ill appearing Eyes: PERRL, conjunctivae normal, anicteric sclerae ENMT: external ear and nose normal, oropharynx normal Neck: Dilation over lower right anterior neck seems to be improved a lot. Minimal redness and local swelling still remain. Respiratory: normal respiratory effort; no respiratory distress Auscultation: lungs clear to auscultation bilaterally Cardiovascular: Rate/Rhythm: regular rate and regular rhythm Heart Sounds: no murmur Gastrointestinal (Abdomen): Inspection/Auscultation: abdomen normal to inspection; abdomen not distended Percussion/Palpation: abdomen soft; abdomen nontender Musculoskeletal: No acute arthritis in any joints Neurologic: moves all extremities; no focal motor deficits Lymphatic: + cervical lymphadenopathy (Right lower anterior cervical) Results & Data Results & Data ([facility]) Vital Signs (Past 12 Hours) Vital Signs Temp Pulse Resp BP Pulse Ox 04/30/20 06:56 36.8 C 68 16 124/78 94 Medications Administered Current Inpatient Medications Acetaminophen (Tylenol) 650 mg PO Q4H PRN PRN Reason: pain/fever Stop: 05/26/20 06:09 Last Admin: 04/29/20 11:22 Dose: 650 mg Documented by: Amoxicillin/Clavulanate Potassium (Augmentin 875mg) 1 tab PO BIDM [facility] Stop: 05/04/20 16:59 Last Admin: 04/30/20 08:58 Dose: 1 tab Documented by: Bupropion HCl (Wellbutrin-Xl) 300 mg PO DAILY [facility] Stop: 05/26/20 08:59 Last Admin: 04/30/20 08:58 Dose: 300 mg Documented by: Cetirizine HCl (Zyrtec) 10 mg PO DAILY PRN PRN Reason: Allergic Symptoms Stop: 05/26/20 06:14 Doxycycline Hyclate (Vibramycin) 100 mg PO BID [facility] Stop: 05/03/20 20:59 Last Admin: 04/30/20 08:58 Dose: 100 mg Documented by: Fluoxetine HCl (Prozac) 60 mg PO DAILY [facility] Stop: 05/26/20 08:59 Last Admin: 04/30/20 08:57 Dose: 60 mg Documented by: Hydromorphone HCl (Dilaudid) 0.5 mg IV Q4H PRN PRN Reason: Pain Stop: 05/10/20 06:09 Last Admin: 04/30/20 07:48 Dose: 0.5 mg Documented by: Hydroxyzine HCl (Vistaril) 25 mg PO Q6 PRN PRN Reason: Anxiety Stop: 05/26/20 06:09 Last Admin: 04/29/20 13:07 Dose: 25 mg Documented by: Ondansetron HCl (Zofran) 4 mg IV Q6H PRN PRN Reason: Nausea Stop: 05/26/20 06:09 Oxycodone/Acetaminophen (Percocet 5mg/325mg) 1 tab PO Q4H PRN PRN Reason: Pain Stop: 05/10/20 08:51 Last Admin: 04/30/20 11:26 Dose: 1 tab Documented by: Pantoprazole Sodium (Protonix) 40 mg PO DAILY [facility] Stop: 05/26/20 08:59 Last Admin: 04/30/20 08:58 Dose: 40 mg Documented by: (1) Tick bite Encounter type: initial encounter Qualified Code(s): W57.XXXA - Bitten or stung by nonvenomous insect and other nonvenomous arthropods, initial encounter
[2020-04-30] MEDS ORDERED: COUGH DROP (SUGAR FREE) LOZ 24 LOZ/1 BOX BUCCAL ONE (14:30)
[2020-04-30 14:39] LABS: Lyme Ab IgG w/WB Rflx Negative (Negative)
[2020-04-30 14:46] LABS: Lyme Ab IgM w/WB Rflx Positive (Negative)
--- NOTE | 2020-04-30 17:21 | Discharge Summary ---
Date of Service April 30, 2020 Admission HPI Per Admitting Provider DICTATED BY: Natanael Nñio MD DATE OF ADMISSION: 04/26/2020 CHIEF COMPLAINT: Neck pain, neck cellulitis. HISTORY OF PRESENT ILLNESS: This is a 39-year-old female with past medical history significant for acute pancreatitis, history of depression, lumbago, who presents with neck cellulitis. The patient had a tick bite on 04/14/2020. She lives in the [facility]. She thinks that the tick was not there for more than 1 day because it was not engorged. There was some mild redness there, but that was gone the next day, but a couple of days later, she developed erythema there and pain. Then she came to the ER yesterday and there seemed to be a small abscess, it was drained of some greenish pus . Was in urgent care prior to coming to the ER, and was given Keflex, but she was taking it only twice daily. In the ER, Lyme screen was negative and she was given Rocephin and also discharged on Keflex q.i.d. and also Bactrim, but the patient, after going home the pain got worse and she was having severe pain on right side of the neck, radiating to the ear and throat and chest. Has some sweating and headache and seemed to be getting worse, so she came back to the ER. Her hemodynamics are stable, no leukocytosis. All the labs are okay. CT Soft tissue neck was done, there was no obvious abscess seen in the preliminary report, but showed cellulitis. Received a dose of Rocephin in the ER. Denies any blurred vision, no runny nose, no dysphagia, no shortness of breath, no cough, no fevers, no abdominal pain, no nausea. Normal bowel and bladder movements. No blood in the stools or hematuria. No swelling in the legs, no rash anywhere else. Admission Exam Per Admitting Provider GENERAL: The patient is obese, not in acute distress. VITAL SIGNS: Temperature 37.3, pulse 72, respiratory rate 18, blood pressure 122/74, oxygen 95% on room air. HEENT: Pupils equal, round, and reactive to light. NECK: Right side of the neck, erythematous lesions seen with centrally some possible slight superficial necrotic areas. CARDIOVASCULAR: S1, S2 heard, regular rate and rhythm, no murmur, no gallop. RESPIRATORY SYSTEM: Normal AP diameter. No accessory muscle use. No wheezing, no crackles. ABDOMEN: Soft, bowel sounds present, nontender. No distention. CENTRAL NERVOUS SYSTEM: Cranial nerves II-XII grossly intact. Nonfocal. EXTREMITIES: No edema, no erythema. Principal Diagnosis Cellulitis of right lower neck, failure of outpatient treatment, tick/spider bite Discharge Exam Constitutional well developed, well nourished, + acute distress (Secondary to flu and neck swelling) and + obese; not ill appearing Eyes PERRL, conjunctivae normal, anicteric sclerae ENMT external ear and nose normal, oropharynx normal Respiratory normal respiratory effort; no respiratory distress Auscultation: lungs clear to auscultation bilaterally Cardiovascular Rate/Rhythm: regular rate and regular rhythm Heart Sounds: no murmur Gastrointestinal (Abdomen) Inspection/Auscultation: abdomen normal to inspection; abdomen not distended Percussion/Palpation: abdomen soft; abdomen nontender Neurologic moves all extremities; no focal motor deficits Lymphatic no cervical or axillary lymphadenopathy + cervical lymphadenopathy (Right lower anterior cervical) Discharge Data Allergies Allergy/AdvReac Type Severity Reaction Status Date / Time morphine AdvReac Severe HEADACHE, Verified 04/26/20 02:51 STIFF NECK tramadol AdvReac Mild DID NOT Verified 04/26/20 02:51 HELP WITH PAIN RELIEF Consultations 04/26/20 04:26 ED Decision to Admit Stat Ordered Studies 04/26/20 02:37 CT soft tissue neck w con Urgent Hospital Course (1) Cellulitis of neck: History obtained by at the lower right anterior neck Initially received Keflex from primary care provider without any improvement Has had incision and drainages of abscess in that location yesterday at [facility] emergency room Was given Keflex and Bactrim and with increasing symptoms she came back yesterday and was admitted Lyme titer has been negative Has been getting intravenous ceftriaxone and doxycycline Clinically worse today with increasing swelling and pain Will change antibiotic to intravenous Unasyn and IV doxycycline to be continued Blood cultures have been negative Not any better compared with yesterday as per the patient The wound itself is showing much improvement She has been ambulating around the hallways Still complains to have some soreness No fever and/or chills Will repeat Lyme titer Will continue treatment for Lyme disease with doxycycline for 21 days Continue Augmentin for 7 days (2) Abscess: As above Status post planus point 04/25/2020 There is fluctuation we will get an ultrasound tomorrow 04/29/2020 Swelling has decreased and there is no fluctuation at that area Redness has decreased too No fluctuation at the local area and no drainage (3) Failure of outpatient treatment: Initial antibiotic with Keflex and later on Bactrim added as of day before yesterday We will give strep coverage on discharge with coverage for tick bite We will continue with Augmentin and doxycycline as an outpatient on discharge (4) Tick bite: Has had tick bite on 04/14/2020 Lyme titer with IgG and IgM have been negative Will cover for Lyme in any way Will continue doxycycline for 2 more weeks Repeat Lyme titer Total Time Total Time Spent Total Time Spent (In Minutes): 35 minutes Total Time Includes: Examination of the Patient, Discharge Planning, Medication Reconciliation and Communication With Other Providers Discharge Plan Discharge Items Patient Disposition: Home - Self-Care Reason For Visit: NECK PAIN Discharge Diagnosis: Cellulitis of right lower neck, failure of outpatient treatment, tick/spider bite Condition on Discharge: Good Activity: Resume your previous activity Non-emergency contact: Primary Care Provider Call non-emergency contact if: you have any medication questions and your symptoms worsen Follow-up/Referrals: Kate Clark MD [Primary Care Provider] - 05/03/20 11:20 am (05/03/2020 11:20 AM Provider Josue Morrow DO Department General Internal Medicine [facility] ) Diet: Regular Addtl Attending Provider Instructions: Please take it easy for the next few days Take precaution to avoid fall Pending Studies at Discharge: Yes Studies:: Repeat Lyme titer Stand-Alone Forms: [facility] Smoking Cessation Medications and DC Order Prescriptions: New doxycycline hyclate 100 mg Capsule 100 mg PO BID 14 Days Qty: 28 RF: 0 amoxicillin-pot clavulanate [Augmentin] 875-125 mg Tablet 1 tab PO BIDM 3 Days Qty: 6 RF: 0 Lactinex 1 million cell tablet,chewable 1 tab PO BID Qty: 30 RF: 0 Continued fluoxetine [Prozac] 40 mg capsule 40 mg PO DAILY RF: 0 omeprazole 40 mg capsule,delayed release(DR/EC) 40 mg PO DAILY RF: 0 hydroxyzine HCl 25 mg tablet 25 mg PO Q6 PRN (Reason: Anxiety) RF: 0 fluoxetine [Prozac] 20 mg capsule 20 mg PO DAILY RF: 0 bupropion HCl [Wellbutrin XL] 300 mg tablet extended release 24 hr 300 mg PO DAILY RF: 0 Allergy Relief (cetirizine) 10 mg Capsule 10 mg PO DAILY PRN (Reason: allergies) RF: 0 Discontinued cephalexin [Keflex] 500 mg capsule 500 mg PO QID RF: 0 Discharge Orders: Discharge Order (Routine); Ordered 04/30/20 Ordered By: Ginny Moore/Other Patient Handouts: Preventing Lyme Disease, Tick Bites Admission Data Admit Date/Time: 04/26/20 05:03 Attending Provider: Ginyn Sanabria Admit Provider: Natanael Niño Primary Care Provider: Kate Clark Other Providers: Natanael Niño Other Interventions: Discharge Summary Assessment (RN) Last Done: 04/30/20 12:45 DC Date/Time DO NOT enter until pt leaves facility: 04/30/20 14:33
[2020-05-04 03:35] LABS: 18KDIGG Band NON-REACTIVE; 23KDIGG Band REACTIVE; 23KDIGM Band REACTIVE; 28KDIGG Band NON-REACTIVE; 30KDIGG Band NON-REACTIVE; 39KDIGG Band NON-REACTIVE; 39KDIGM Band NON-REACTIVE; 41KDIGG Band NON-REACTIVE; 41KDIGM Band NON-REACTIVE; 45KDIGG Band NON-REACTIVE; 58KDIGG Band NON-REACTIVE; 66KDIGG Band NON-REACTIVE; 93KDIGG Band NON-REACTIVE; Lyme Antibodies, WB IgG NEGATIVE (NEGATIVE); Lyme Antibodies, WB IgM NEGATIVE (NEGATIVE)
== END 2020-04-30 14:33 | disposition home or self-care (01) | DRG 603 ==
LOC: ED 01:59 → 3E 05:03

== ENCOUNTER 2021-05-19 05:37 | Observation (INO) ==
--- NOTE | 2021-05-16 12:25 | Anesthesiology Consultation ---
Date of Service May 16, 2021 Assessment & Plan (1) Encounter for pre-operative examination: Chart Review Chart Review: Acceptable Risk for Surgery and Patient NOT seen in Pre Admission Testing Consults Requested none History Surgery Operation Date: 05/19/21 07:15 Proposed Procedures p Closure of Large Oral Sinus Opening, Left Sinus Kedar Rome, DMD Height/Weight Height: 5 ft 6 in Weight: 102.058 kg Allergies Allergy/AdvReac Type Severity Reaction Status Date / Time tramadol AdvReac Unknown DID NOT Verified 05/16/21 12:01 HELP WITH PAIN RELIEF Medications Home Medications Medication Instructions Recorded Confirmed Last Taken bupropion HCl [Wellbutrin XL] 300 mg PO QAM 04/25/20 05/16/21 12/28/20 fluoxetine [Prozac] 20 mg PO QAM 04/25/20 05/16/21 12/28/20 fluoxetine [Prozac] 40 mg PO QAM 04/25/20 05/16/21 12/28/20 hydroxyzine HCl 25 mg PO Q6H PRN 04/25/20 05/16/21 Unknown omeprazole 40 mg PO QAM 04/25/20 05/16/21 12/28/20 Lactobacillus acidoph-L.bulgar 1 tab PO BID #30 tab 04/30/20 05/16/21 12/28/20 [Lactinex] cyclobenzaprine 10 mg PO HS PRN 12/03/20 05/16/21 Unknown docusate sodium 100 mg PO BID PRN 12/03/20 05/16/21 Unknown loratadine 10 mg PO QAM 12/03/20 05/16/21 Unknown ondansetron 4 mg PO Q8H PRN #10 tab 12/03/20 05/16/21 Unknown promethazine 25 mg PO Q6H PRN 12/03/20 05/16/21 Unknown famotidine 20 mg PO BID 12/28/20 05/16/21 12/28/20 magnesium 250 mg PO QAM 12/28/20 05/16/21 12/28/20 potassium chloride 20 meq PO QAM 12/28/20 05/16/21 12/28/20 Medical Marijuana 1 dose PO UD PRN 05/16/21 05/16/21 Unknown Past Medical History Medical History Anxiety and depression Arthritis Degenerative disc disease LUMBAR Fibromyalgia GERD (gastroesophageal reflux disease) History of skin cancer Hx of Clostridium difficile infection 2015 > [facility] Migraine Pulmonary embolism 2015 > blood thinners FOR SHORT PERIOD TIME (? CAUSED BY CONTROL) Spinal stenosis Past Family History Family History Grandfather Family history of diabetes mellitus Grandmother Family history of diabetes mellitus Grandmother Family hx of colon cancer Grandmother (Maternal) Diabetes Colorectal cancer Father Heart disease Mother Hypertension Uncle Stroke Other Cancer Gall bladder disease Lung disease No family history of adverse response to anesthesia Past Surgical History Surgical History H/O exploratory laparotomy History of cholecystectomy History of cholecystectomy History of colonoscopy History of esophagogastroduodenoscopy (EGD) History of knee surgery left knee X 2-OPEN AND ARTHROSCOPIC 1997 History of tooth extraction Hx of shoulder surgery RT S/P laparoscopic hysterectomy OVARIES REMAIN 2016 S/P lumbar spinal fusion 2017 & 2018 Social History Smoking Status: Never smoker Hx Alcohol Use: Yes Alcohol type: wine alcohol intake frequency: holidays/special occasions only Hx Substance Use: No substance use type: other Substance Use Type Other:: medicinal marijuana/tinctures used at night for sleep Testing Laboratory Results Laboratory Tests 03/04/21 03/04/21 23:06 23:06 WBC 8.10 Hgb 12.9 Hct 37.7 Plt Count 274 Sodium 139 Potassium 3.6 Chloride 109 H Carbon Dioxide 28 BUN 18 Creatinine 0.92 Glucose 84 Electrocardiogram Date: 12/03/20 Findings: + NSR @ Chest X-Ray Date: 04/26/20 Findings: + NAD
--- NOTE | 2021-05-18 15:08 | History & Physical Report ---
Date of Service May 18, 2021 Assessment & Plan (1) Oral fistula: (2) Sinus drainage: (3) Chronic maxillary sinusitis: History of Present Illness Primary Care Provider: Kate Clark MD Assessment and Plan (1) Oral fistula: (2) Chronic maxillary sinusitis: (3) Preop general physical exam: HPI History of Present Illness: Oral Maxillofacial Surgery Exam Updated May 19 2021 Still air flow into sinus left side Fractured failing # 3 root canal tooth --we will plan extraction Present Complaint: I have pain/swelling/drainage from where my infected upper left molar was removed # 14 for over [address] Bunch. Symptoms have been ongoing for a while they would come and go. Now pain is less, fullness of left sinus, I still have air/fluid exchange, oral/sinus opening at # 14 area where the tooth was removed Still pain # 3 area --failing root canaled tooth --Plan removal Oral Exam: Finding--A large fistula at site # 14 is present, upon probing pus extrudes from the sinus. congestion left side of nose, bad smell. Fractured # 3 Imaging: I reviewed a screen shot of the dental CBCT. The left sinus is congested, the fistula in the bone is apparent Not able to evaluate the OM complex I ordered a CT scan see results below OCT 2020 CT sinus wo con HISTORY: 40 years-old Female oral sinus opening with infection chronic sinus disease COMPARISON: Head CT 01/27/2019 TECHNIQUE: Multiple axial CT images of the paranasal sinuses were obtained without the use of IV contrast. A dose lowering technique was used consistent with the principals of ALARA. FINDINGS: The imaged intracranial structures demonstrate no acute abnormality. Streak artifact from the patient's earrings limits evaluation of the adjacent tissues. Soft tissues and orbits are unremarkable. The mastoid air cells and middle ear cavities are clear. No acute calvarial or facial bone fracture. Likely benign areas of sclerosis within the right frontal bone measure up to 8 mm. Minimal mucoperiosteal thickening of the right maxillary sinus. Moderate to severe mucoperiosteal thickening with greater than 50% opacification of the left maxillary sinus. The frontal sinuses are clear. Moderate mucosal thickening of the anterior left ethmoid air cells with mild right ethmoid air cell mucosal thickening. The sphenoid sinuses are generally clear. With minimal sigmoidal bowing of the nasal septum. The right maxillary ostiomeatal unit, sphenoethmoidal and right frontoethmoidal recesses are patent. Partial opacification of the left frontoethmoidal recess and left maxillary ostiomeatal unit. No large antione bullosa or Kenny cell. Normal-appearing colleen mary. Mild mucosal thickening of the inferior nasal turbinates. Patent nasopharynx. Prior extraction of left maxillary molars. Left first maxillary molar extraction cavity is noted with a 6 x 5 mm bony defect noted involving the floor of the maxillary sinus, best seen on image 35 series 300 and image 54 series 301. IMPRESSION: 1. Left first and second maxillary molar extraction with the extraction cavity extending into the floor of the maxillary sinus measuring 6 x 5 mm. 2. Paranasal sinus disease as above, most pronounced in the left maxillary and ethmoid air cells. 2. Partial opacification of the left frontoethmoidal recess and left maxillary ostiomeatal unit. I reviewed and formed an Independent interpretation of the CT scan The CT scan a large opening upper left side, very thin sinus bone, very thick lateral bone in the lateral ridge, the sinus lining is very thick and polyps noted w/in sinus. The base of sinus is involved while the upper portion of the left sinus is clearer. associated surrounding teeth are all WNL. A more recent sinus CT scan was obtained for an unrelated issue in February 2021. The left sinus is now clearer but the opening in the ridge still is present Soft tissue closure of the fistula is still required. WE will set up surgery soon. Soft tissue: floor of the mouth, tongue, hard/soft palate, posterior pharyngeal area all with in normal limits, no pathology or abnormal findings noted. No lesions noted that require follow up or Bx. There is a somewhat large oral/sinus defect with red irritated gingival tissue extruding from the sinus opening Oral Care: Overall oral care is excellent Occlusion: Class I missing upper left molars TMJ exam: No pop, clicking, pain, good ROM, No history of TMJ injury or dysfunction Periodontal exam: Healthy gingival tissue without evidence of periodontal pathology noted oral/sinus fistula and surrounding gingival tissue Head/Neck exam: Neck is supple, FROM, Able to extend and flex neck w/o difficulty, no masses, no abnormalities, no airway issues, no evidence of sleep apnea. Treatment Plan: Insurance authorization pending. Set up with general anesthesia in hospital due to complexity of the procedure I reviewed the treatment plan and consent with the patient Understanding was expressed. Time was given for questions regarding the surgery, risks and post op care. Discussed alternative to treatment--procedure as planned, Do not do surgery The sinus is chronically infected and there is a large opening at site # 14 treatment is indicated and medically necessary. The following is needed, Tejada Mikel to remove polyps , flap closure of sinus opening # 14 area and extraction # 3 Risks discussed: Pain,swelling,infection, delayed healing, nerve injury to face,lips,tongue,chin area which could be permanent (rare). TMJ, jaw stiffness, change in bite (rare), ear pain (referred). Sinus problems like fistula or infection. continued sinus issues, failure of closure and revision surgery Home care reviewed: tooth brushing, rinsing, follow up care with Dr Rome. diet=[id number] dental. Discussed activity level, driving/work while on Rx pain Meds. Surgery to be set up after--will obtain physical exam from her PCP. consent signed--await setting up procedures RICHIE Physical Exam Updated May 19 2021 Constitutional: WD/WN, vitals as above well developed Eyes: PERRL, conjunctivae normal, anicteric sclerae ENMT: external ear and nose normal, oropharynx normal Nose: + sinus tenderness, + nasal polyps and + facial tenderness Mallampati Class: II Neck: trachea midline, no thyromegaly trachea midline Respiratory: normal respiratory effort, lungs clear to auscultation normal respiratory effort Cardiovascular: RRR, no murmur, no edema Rate/Rhythm: regular rate Gastrointestinal (Abdomen): normal bowel sounds, soft, nontender, no hepatosplenomegaly Inspection/Auscultation: abdomen normal to inspection Musculoskeletal: no cyanosis or clubbing, extremities motor strength 5/5 Skin: no rashes, warm and dry normal turgor Neurologic: PERRL, EOMI, accommodation nl, no face palsy, no dysarthria C ranial Nerves: sense of smell intact (bad smell due to infection in sinsu from opening upper left side fistula), PERRL, EOM intact bilaterally, normal gag reflex and normal hearing Psychiatric: Orientation: oriented x 3 Lymphatic: no cervical or axillary lymphadenopathy Review of System May 19 2021 Constitutional: Constitutional: + fatigue; no fever, no chills, no sweats, no weight loss and no weight gain Eyes: Eyes: + corrective lenses; no diplopia, no decreased night vision, no eye pain, no spots in vision and no problem reported Ear, Nose, Mouth, Throat: Ear, Nose, Mouth, Throat: + ear pain, + hearing loss and + nasal discharge; no sore throat, no hoarseness and no dysphagia Respiratory: Respiratory: no cough, no dyspnea, no dyspnea on exertion, no hemoptysis and no wheezing Cardiovascular: Cardiovascular: no chest pain, no palpitations, no lightheadedness and no edema Gastrointestinal: Gastrointestinal: + heartburn; no abdominal pain, no belching, no bloating, no nausea, no vomiting, no cramping, no constipation, no diarrhea/loose stools, no fecal incontinence and no blood in stools Genitourinary (Female): Genitourinary (Female): + urinary frequency; no dysuria, no difficulty urinating, no urinary incontinence and no hematuria Musculoskeletal: Musculoskeletal: + back pain, + joint pain and + stiffness; no neck pain Integumentary: Integumentary: no boil, no rash, no changing lesions and no dry skin Neurologic: Neurologic: + memory loss; no tingling, no numbness, no seizure- like activity, no dizziness, no syncope and no headache(s) Psychiatric: Psychiatric: + depression and + anxiety; no abnormal sleep pattern and no confusion Endocrine: Endocrine: no polydipsia, no polyphagia, no polyuria, no cold intolerance and no heat intolerance Hematologic / Lymphatic: Hematologic / Lymphatic: no easy bleeding, no easy bruising, no coagulopathy and no lymphadenopathy PFSH Allergies Allergy/AdvReac Type Severity Reaction Status Date / Time tramadol AdvReac Mild DID NOT Verified 05/19/21 05:54 HELP WITH PAIN RELIEF Home Medications Medication Instructions Recorded Confirmed Type bupropion HCl [Wellbutrin XL] 300 mg PO QAM 04/25/20 05/19/21 History fluoxetine [Prozac] 20 mg PO QAM 04/25/20 05/19/21 History fluoxetine [Prozac] 40 mg PO QAM 04/25/20 05/19/21 History hydroxyzine HCl 25 mg PO Q6H PRN 04/25/20 05/19/21 History omeprazole 40 mg PO QAM 04/25/20 05/19/21 History Lactobacillus acidoph-L.bulgar 1 tab PO BID #30 tab 04/30/20 05/19/21 Rx [Lactinex] cyclobenzaprine 10 mg PO HS PRN 12/03/20 05/19/21 History docusate sodium 100 mg PO BID PRN 12/03/20 05/19/21 History loratadine 10 mg PO QAM 12/03/20 05/19/21 History ondansetron 4 mg PO Q8H PRN #10 tab 12/03/20 05/19/21 Rx promethazine 25 mg PO Q6H PRN 12/03/20 05/19/21 History magnesium 250 mg PO QAM 12/28/20 05/19/21 History potassium chloride 20 meq PO QAM 12/28/20 05/19/21 History Medical Marijuana 1 dose PO UD PRN 05/16/21 05/19/21 History lorazepam 2 mg PO DAILY PRN 05/19/21 05/19/21 History Past Med/Surg History Medical History Anxiety and depression Arthritis Degenerative disc disease LUMBAR Fibromyalgia GERD (gastroesophageal reflux disease) History of skin cancer Hx of Clostridium difficile infection 2015 > [facility] Migraine Pulmonary embolism 2014 > blood thinners FOR SHORT PERIOD TIME (? CAUSED BY CONTROL) Spinal stenosis Surgical History H/O exploratory laparotomy History of cholecystectomy History of cholecystectomy History of colonoscopy History of esophagogastroduodenoscopy (EGD) History of knee surgery left knee X 2-OPEN AND ARTHROSCOPIC 1997 History of tooth extraction Hx of shoulder surgery RT S/P laparoscopic hysterectomy OVARIES REMAIN 2016 S/P lumbar spinal fusion 2017 & 2018 Family History Grandfather Family history of diabetes mellitus Grandmother Family history of diabetes mellitus Grandmother Family hx of colon cancer Grandmother (Maternal) Diabetes Colorectal cancer Father Heart disease Mother Hypertension Uncle Stroke Other Cancer Gall bladder disease Lung disease No family history of adverse response to anesthesia Social History Smoking Status: Never smoker Second Hand Exposure: No; Hx Alcohol Use: Yes Alcohol type: wine Alcohol Intake Frequency: Monthly or Le ss Hx Substance Use: No Preferred Language: Niuean Communication Ability: Effective Visual Impairment: No Limitations Promotions Assistant Required: No Beliefs That Will Affect Care: Latter-Day Latter-Day Beliefs: JEHOVAW WITNESS (NO BLOOD PRODUCTS) Current Living Situation: Family Current Living Situation Comment: and son current occupational status: employed 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
[2021-05-19] MEDS ORDERED: LR 15ML/HR IV SCH (06:00)
[2021-05-19] MEDS ORDERED: LACTATED RINGER'S 1,000 ML IV SCH (06:00)
[2021-05-19] MEDS ORDERED: ceFAZolin 2000MG 2,000 MG/15 ML SYR IV SCH (06:00)
[2021-05-19] MEDS ORDERED: fentaNYL citrate 100 MCG/2 ML VIAL ONE (06:59)
[2021-05-19] MEDS ORDERED: MIDAZOLAM HCL 1 MG/ML 2ML VIAL ONE (06:59)
[2021-05-19] MEDS ORDERED: BUPIVACAINE/EPINEPHRINE 0.5% 1:200,000 1.8 ML CARP ONE (07:06)
[2021-05-19] MEDS ORDERED: CHLORHEXIDINE GLUCONATE 0.12% 480 ML ONE (07:06)
[2021-05-19] MEDS ORDERED: OXYMETAZOLINE 0.05% 30 ML BTL ONE (07:09)
--- NOTE | 2021-05-19 07:20 | History & Physical Bridge Note ---
Date of Service May 19, 2021 History & Physical Bridge Note I have examined the patient, reviewed the History & Physical and in the interval since the performance of the History & Physical I have noted the following changes of clinical significance: no changes noted PLAN--closure of oral fistula left side and # 3 extraction COVID--Neg
[2021-05-19] MEDS ORDERED: ONDANSETRON INJ 2 MG/ML 2 ML VIAL ONE (09:12)
[2021-05-19] MEDS ORDERED: NEOSTIGMINE METHYLSULFATE 1 MG/ML 10ML VIAL ONE (09:12)
[2021-05-19] MEDS ORDERED: PROPOFOL IV EMULSION 10 MG/ML 20 ML VIAL IV ONE (09:12)
[2021-05-19] MEDS ORDERED: PHENYLEPHRINE 100MCG/ML 5ML SYR ONE (09:12)
[2021-05-19] MEDS ORDERED: DEXAMETHASONE SOD INJ 4 MG/ML VIAL ONE (09:12)
[2021-05-19] MEDS ORDERED: GLYCOPYRROLATE 0.2 MG/ML VIAL ONE (09:12)
[2021-05-19] MEDS ORDERED: MoRPHine SULFATE 2 MG/ML CARP IV PRN ×2 (09:17→14:36)
[2021-05-19] MEDS ORDERED: ONDANSETRON INJ 2 MG/ML 2 ML VIAL IV PRN ×3 (09:17→14:36)
[2021-05-19] MEDS ORDERED: ePHEDrine sulfate 50 MG/ML AMP IV PRN (09:24)
[2021-05-19] MEDS ORDERED: ATROPINE SULFATE 0.1 MG/ML 10ML SYR IV PRN (09:24)
[2021-05-19] MEDS ORDERED: FLUMAZENIL 0.1 MG/1 ML 10 ML VIAL IV PRN (09:24)
[2021-05-19] MEDS ORDERED: NALOXONE HCL 0.4 MG/1 ML VIAL/CARP IV PRN (09:24)
[2021-05-19] MEDS ORDERED: PROMETHAZINE HCL 12.5 MG in SODIUM CHLORIDE 0.9% 50 ML IV PRN (09:24)
[2021-05-19] MEDS: fentaNYL citrate 100 MCG/2 ML VIAL IV PRN ×6 (09:38→10:15)
--- NOTE | 2021-05-19 09:38 | Post Operative Brief Note ---
PG Immediate Post Op with CF Date of Surgery May 19, 2021 Pre & Post Diagnosis Operation Date: 05/19/21 07:15 Pre-Op Diagnosis: Chronic Left Maxillary Sinusitis, Oral Fistula Post-Op Diagnosis: Chronic Left Maxillary Sinusitis, Oral Fistula I identified the patient and participated in the time-out.: Yes Procedure Operation Date: 05/19/21 07:15 Actual Procedures p Closure of Large Oral Sinus Opening, Left Sinus Tejada-Mikel, Removal Tooth #3(Not Applicable) - Dilip Rome DMD Surgeon Dilip Rome, LUCY Press Breaker none Estimated Blood Loss 5 Findings Consistent with Post-Op Diagnosis
[2021-05-19] MEDS: LABETALOL HCL IV 5 MG/ML 20ML IV PRN ×4 (09:41→10:46)
--- NOTE | 2021-05-19 10:53 | Anesthesiology Progress Note ---
Date of Service May 19, 2021 Anesthesia Post Procedure Vital Signs Vital Signs: Temp Pulse Pulse Resp BP Pulse Ox 05/19/21 10:45 66 17 146/102 H 99 05/19/21 10:35 70 12 144/107 H 99 05/19/21 10:25 36.9 C 74 14 142/109 H 99 05/19/21 10:15 67 12 156/104 H 98 05/19/21 10:05 73 16 164/100 H 99 05/19/21 09:55 69 12 170/102 H 96 05/19/21 09:45 79 14 181/112 H 94 05/19/21 09:35 93 H 19 198/114 H 98 05/19/21 09:25 36.0 C L 96 H 20 131/102 H 98 05/19/21 05:59 36.5 C 68 18 129/76 96 Pain Intensity Left Mouth: Pain Intensity: 5 Transfer of Care Handoff Completed per policy Notes Mental Status: alert / awake / arousable Patient Amnestic to Procedure: Yes Nausea / Vomiting: adequately controlled Pain: adequately controlled Airway Patency, RR, SpO2: stable & adequate BP & HR: stable & adequate Hydration State: stable & adequate Anesthetic Complications: no major complications apparent
[2021-05-19] MEDS: oxyCODONE HCL IR 5 MG TAB (IMMEDIATE RELEASE) PO PRN ×3 (11:15→19:55)
[2021-05-19] MEDS: MoRPHine SULFATE 4 MG/ML 1 ML CARP\\VIAL IV PRN ×3 (12:13→22:46)
[2021-05-19] MEDS ORDERED: MoRPHine SULFATE 2 MG/ML CARP IV STA (13:03)
[2021-05-19] MEDS ORDERED: MoRPHine SULFATE 4 MG/ML 1 ML CARP\\VIAL IV PRN (14:36)
[2021-05-19] MEDS ORDERED: LORazepam 1 MG/2 ML VIAL IV PRN (14:36)
[2021-05-19] MEDS ORDERED: OXYMETAZOLINE 0.05% 30 ML BTL PRN (14:36)
[2021-05-19] MEDS ORDERED: SODIUM CHLORIDE 0.65% NA SOLN 45 ML (OCEAN) PRN (14:36)
[2021-05-19] MEDS ORDERED: oxyCODONE/APAP 7.5/325MG TAB PO PRN (14:41)
[2021-05-19] MEDS ORDERED: FLUoxetine HCL 20 MG CAP PO SCH (15:53)
[2021-05-19] MEDS ORDERED: PROMETHAZINE HCL 25 MG TAB PO PRN (15:53)
[2021-05-19] MEDS ORDERED: DOCUSATE SODIUM 100 MG CAP PO PRN (15:53)
[2021-05-19] MEDS ORDERED: CYCLOBENZAPRINE HCL 10 MG TAB PO PRN (15:59)
[2021-05-19] MEDS: ceFAZolin 2000MG 2,000 MG/15 ML SYR IV SCH ×2 (17:08→22:46)
[2021-05-19] MEDS: buPROPion XL 300 MG TABCR PO SCH (17:09)
[2021-05-19] MEDS: FLUoxetine HCL 20 MG CAP PO SCH (17:10)
[2021-05-19] MEDS: LACTOBACILLUS ACIDOPHILUS 1 GM PACK PO SCH (18:14)
--- NOTE | 2021-05-19 19:37 | Oral/Maxillofacial Progress Nt ---
Date of Service May 19, 2021 POST OP NOTE I received a call from the nursing regarding Telma. Her pain was NOT controlled she was crying and not able to get out of bed. There was no way that I or the staff felt comfortable to sending her home. She does take a lot of Meds for anxiety and I feel that the pain, difficult procedure and her anxiety is playing into this. My plan will be to observe for 23 hours and evaluate Wednesday. The surgery went very well. I feel that Telma needs more time with IV pain Meds for reassurance to allow her to cope at home during the early healing phase. Plan Observation status -- transfer orders written Evaluate Wednesday Assessment & Plan Admission and Anticipated Discharge Date Admission Date: May 19, 2021 Results & Data ([facility]) Vital Signs (Past 12 Hours) Vital Signs Temp Pulse Pulse Resp BP Pulse Ox 05/19/21 17:57 36.4 C L 78 18 145/88 H 93 05/19/21 16:35 36.9 C 82 18 132/87 95 05/19/21 16:11 36.9 C 80 18 132/87 95 05/19/21 16:02 36.9 C 84 16 152/89 H 96 05/19/21 14:37 37.3 C 84 16 145/94 H 95 05/19/21 13:10 84 16 151/95 H 95 05/19/21 12:18 73 16 145/94 H 96 05/19/21 12:06 36.4 C L 74 16 147/100 H 96 05/19/21 11:30 78 16 141/106 H 95 05/19/21 11:00 36.5 C 72 16 166/104 H 95 05/19/21 10:45 66 17 146/102 H 99 05/19/21 10:35 70 12 144/107 H 99 05/19/21 10:25 36.9 C 74 14 142/109 H 99 05/19/21 10:15 67 12 156/104 H 98 05/19/21 10:05 73 16 164/100 H 99 05/19/21 09:55 69 12 170/102 H 96 05/19/21 09:45 79 14 181/112 H 94 05/19/21 09:35 93 H 19 198/114 H 98 05/19/21 09:25 36.0 C L 96 H 20 131/102 H 98 PG Care Time/CCT Total # of Minutes Spent Total Time Spent with Patient: Total time spent is greater than 50% in coordination of care (as documented) at patient's floor/unit and/or counseling patient: Coding Level of Care Code None
[2021-05-19] MEDS: CHLORHEXIDINE GLUCONATE 0.12% 480 ML MT SCH (20:27)
[2021-05-19] MEDS ORDERED: TRIAMCINOLONE ACET 0.1% OINT 15 GM TUBE EXT SCH (21:00)
[2021-05-20] MEDS: oxyCODONE HCL IR 5 MG TAB (IMMEDIATE RELEASE) PO PRN ×4 (03:01→16:27)
[2021-05-20] MEDS: MoRPHine SULFATE 4 MG/ML 1 ML CARP\\VIAL IV PRN (05:12)
--- NOTE | 2021-05-20 07:54 | Oral/Maxillofacial Progress Nt ---
Date of Service d Doing much better this AM Pain is more controlled I will now plan Discharge and follow up in office Rx called in and instructions given and reviewed. Oral condition looks good, sutures are in place. Sinus well closed. S/P closure of large oral /sinus opening left side and extraction of # 3. May 20, 2021 Assessment & Plan Admission and Anticipated Discharge Date Admission Date: May 19, 2021 Results & Data ([facility]) Vital Signs (Past 12 Hours) Vital Signs Temp Pulse Pulse Resp BP BP Pulse Ox 05/20/21 07:33 36.7 C 72 15 139/83 96 05/20/21 02:36 36.6 C 72 18 134/81 94 05/20/21 00:16 36.6 C 68 16 135/82 96 05/19/21 20:13 36.3 C L 86 16 144/86 H 95 PG Care Time/CCT Total # of Minutes Spent Total Time Spent with Patient: Total time spent is greater than 50% in coordination of care (as documented) at patient's floor/unit and/or counseling patient: Coding Level of Care Code None
--- NOTE | 2021-05-20 07:58 | Discharge Summary ---
Date of Service May 20, 2021 Developed a large opening after her dentist removed upper left first molar. Dentist tried to close but the closure was not successful. Developed chronic sinus issues. To OR for cleaning out sinus and closure of the large opening left side with local flap an dsmall bone graft. Extraction of # 3. Tolerated procedure very well. I received a call from the nursing regarding Telma. Her pain was NOT controlled she was crying and not able to get out of bed. There was no way that I or the staff felt comfortable to sending her home. She does take a lot of Meds for anxiety and I feel that the pain, difficult procedure and her anxiety is playing into this. My plan will be to observe for 23 hours and evaluate Wednesday. The surgery went very well. I feel that Telma needs more time with IV pain Meds for reassurance to allow her to cope at home during the early healing phase. Plan Observation status -- transfer orders written Evaluate Wednesday AM WednesdayMay 20- Doing much better this AM Pain is more controlled I will now plan Discharge and follow up in office Rx called in and instructions given and reviewed. Oral condition looks good, sutures are in place. Sinus well closed. S/P closure of large oral /sinus opening left side and extraction of # 3. Discharge Data Procedures Performed Operation Date: 05/19/21 07:15 Actual Procedures p Closure of Large Oral Sinus Opening, Left Sinus Tejada-Mikel, Removal Tooth #3(Not Applicable) - Dilip Rome DMD Coding Level of Care Code 78294 OBS Care - Discharge
[2021-05-20] MEDS: ceFAZolin 2000MG 2,000 MG/15 ML SYR IV SCH (08:00)
[2021-05-20] MEDS: FLUoxetine HCL 20 MG CAP PO SCH (08:01)
[2021-05-20] MEDS: buPROPion XL 300 MG TABCR PO SCH (08:01)
[2021-05-20] MEDS: LACTOBACILLUS ACIDOPHILUS 1 GM PACK PO SCH (08:01)
[2021-05-20] MEDS: CHLORHEXIDINE GLUCONATE 0.12% 480 ML MT SCH (08:02)
[2021-05-20] MEDS ORDERED: MAGNESIUM OXIDE 400 MG TAB PO SCH (09:00)
[2021-05-20] MEDS ORDERED: POTASSIUM CHLORIDE CRTAB 20 MEQ TABCR PO SCH (09:00)
[2021-05-20] MEDS ORDERED: LORATADINE 10 MG TAB PO SCH (09:00)
--- NOTE | 2021-05-26 06:59 | Operative Report ---
PG Post Operative Report Pre & Post Diagnosis Case was done in main OR This was placed in error see Main OR report for details of the case Operation Date: 05/19/21 07:15 Pre-Op Diagnosis: Chronic Left Maxillary Sinusitis, Oral Fistula Post-Op Diagnosis: Chronic Left Maxillary Sinusitis, Oral Fistula I identified the patient and participated in the time-out.: Yes Procedure Operation Date: 05/19/21 07:15 Actual Procedures p Closure of Large Oral Sinus Opening, Left Sinus Tejada-Mikel, Removal Tooth #3(Not Applicable) - Dilip Rome DMD Surgeon Dilip Rome, LUCY Outreach Clinician none Estimated Blood Loss 5 Findings Consistent with Post-Op Diagnosis Specimens none Description of Procedure see main OR report I attest to the content of the Intraoperative Record and any orders documented therein. Any exceptions are noted below.
--- NOTE | 2021-05-26 07:11 | Operative Report ---
PG Post Operative Report Pre & Post Diagnosis Operation Date: 05/19/21 07:15 Pre-Op Diagnosis: Chronic Left Maxillary Sinusitis, Oral Fistula Post-Op Diagnosis: Chronic Left Maxillary Sinusitis, Oral Fistula I identified the patient and participated in the time-out.: Yes Procedure Coding J32.0 K04.7 J32.9 Tejada Mikel--CPT 78471 Sinus closure CPT 10502 Extraction of tooth # 3 D7210 surgical extraction--please bill patient for the standard fee for D7210 Operation Date: 05/19/21 07:15 Actual Procedures p Closure of Large Oral Sinus Opening, Left Sinus Tejada-Mikel, Removal Tooth #3(Not Applicable) - Dilip Rome, LUCY Once cleared for surgery general anesthesia was achieved, the eyes were protected by the anesthesia dept criteria.. A time out was take for patient ID, antibiotics, equipment and position verification once all agreed the procedure began. Local anesthesia was given into each area using Marcaine with a vasoconstrictor ( 1.8 ml per site). A throat pack was placed after the oral cavity was irrigated with saline. Once a surgical level of anesthesia was obtained and the local anesthesia was given time for the blocks the surgery was started. Closure of large oral-sinus opening left # 14 site. Her dentist removed # 14 about 9 months ago. An opening was noted and an attempt at closure was done but failed. Telma was placed on a number of courses of antibiotics but the large opening remained. CT scan showed chronic left sinus involvement with a large opening from the sinus floor into the sinus. The alveolar bone was thick with a large bony exostosis. An Incision was made over the tuberosity and extended forward around tooth #11 and 12 . The full thickness flap was reflected. I cored out the inflamed tissue around the fistula. The flap periosteum was scored to allow relaxation and a releasing incision was also done to allow a tension free closure. A dental drill with a round bur was used to smooth out the bone surrounding the fistula and the recontour the ridge from # 16 to # 14 area. The large bony exostosis was scored with a fissure bur and then the bone exostosis was removed with a rongeur. I will re shape this bone and use to plug the opening and create a floor for the sinus. I now used the drill to open into the lateral sinus all vis a standard Tejada Mikel approach. The sinus was inspected and curetted, it was very clean after I irrigated the left sinus out with NS. I used the drill to clean the opening and reshape the opening. The sinus was now clean and free of diseased tissue. I fitted the bone plug to be tight w/in the sinus opening and now closure was obtained with a double layered closure using a 2 - 0 chromic and a 4 - 0 Vicryl continues suture. At this time the sinus was closed in a tension free manner. I now turned my attention to the upper #3 tooth Upper tooth # 3 An Incision was made over the tuberosity. The full thickness flap was reflected, bone removed with a rongeur, the tooth was visualized, it was close to the sinus. A dental drill was used to section the tooth into 3 segments and each section was removed with an 81 elevator. Bony margins were trimmed, smoothed and sutured closed with a 2-0 chromic x 2. There was no sinus involvement. Very Difficult case, dense thick bone. When completed I inspected the sites to insure all bleeding was controlled. I removed the throat pack and suctioned the throat. Bilateral gauze pressure dressings were placed. All instrument and sponge count was correct. the patient was allowed to awake from the anesthesia. Once full awake the anesthesia tube was removed and the patient was taken to the recovery room with all vital sign stable. The patient tolerated the surgery very well. I will follow the patient in my office, Rx and instructions will be given upon discharge. Sinus precautions will be given. Very difficult case very dense bone Surgeon Dilip Rome, DMD Concentrator Operator none Estimated Blood Loss 5 Findings Consistent with Post-Op Diagnosis Specimens none Description of Procedure Coding J32.0 K04.7 J32.9 Tejada Mikel--CPT 51936 Sinus closure CPT 70851 Extraction of tooth # 3 D7210 surgical extraction--please bill patient for the standard fee for D7210 I attest to the content of the Intraoperative Record and any orders documented therein. Any exceptions are noted below.
== END 2021-05-20 17:25 | disposition home or self-care (01) ==
LOC: ASU 05:37 → 3N 05:37

== ENCOUNTER 2023-05-22 07:09 | Inpatient (IN) ==
[2023-05-22] MEDS ORDERED: ONDANSETRON INJ 2 MG/ML 2 ML VIAL IV STA (07:33)
[2023-05-22] MEDS ORDERED: HYDROmorphone INJ 0.5 MG/0.5 ML SYR IV STA ×3 (07:33→10:36)
--- NOTE | 2023-05-22 07:37 | Emergency Department Note ---
History of Present Illness General Chief complaint: Shortness of Breath/Dyspnea Stated complaint: SOB, POST OP SURGERY Time Seen by Provider: 05/22/23 07:21 History of Present Illness Maximum Pain Intensity: 10 This is a 42-year-old female that presents to the emergency department via [employer] [place] vehicle accompanied by with complaints of "shortness of breath, postop from C-spine surgery". Patient notes that this past she underwent C5/C6 surgery at [facility] performed by Dr. Olson. Patient notes that she was discharged from the hospital yesterday. She notes that the pain was manageable but around 1 AM today the pain acutely worsened. She notes it radiates from her neck/upper back into the chest. She feels a pressure to the chest as well. She tried taking oral analgesia at home with minimal relief. The patient notes a history of clots in the lungs previously. The patient denies any recent or current antibiotic use. No alleviating factors. No cough or fever. No weakness in the extremities. Home Medications Medication Instructions Recorded Confirmed Type hydroxyzine HCl 25 mg tablet 25 mg PO Q6H PRN Anxiety 04/25/20 05/22/23 History omeprazole 40 mg capsule,delayed 40 mg PO QAM 04/25/20 05/22/23 History release loratadine 10 mg tablet 10 mg PO QAM 12/03/20 05/22/23 History promethazine 25 mg tablet 25 mg PO Q6H PRN Nausea And 12/03/20 05/22/23 History Vomiting Medical Marijuana 1 dose PO HS sleep 05/16/21 05/22/23 History sennosides 8.6 mg tablet (Senokot) 8.6 mg PO HS PRN Constipation 09/21/21 05/22/23 History duloxetine 60 mg capsule,delayed See Rx Instructions .Route .COMPLEX 02/18/22 05/22/23 History release oxycodone 5 mg tablet 5 mg PO Q6H PRN pain #10 tabs 02/18/22 05/22/23 Rx acidophilus 100 million 1 cap PO DAILY 05/22/23 05/22/23 History cell-pectin, citrus 10 mg capsule ascorbic acid (vitamin C) 500 mg 500 mg PO DAILY 05/22/23 05/22/23 History tablet bupropion HCl 300 mg 24 hr tablet, 300 mg PO DAILY 05/22/23 05/22/23 History extended release celecoxib 100 mg capsule 100 mg PO DAILY PRN Pain 05/22/23 05/22/23 History cyclobenzaprine 10 mg tablet 10 mg PO BID PRN muscle spasm 05/22/23 05/22/23 History docusate sodium 100 mg tablet 100 mg PO BID PRN Constipation 05/22/23 05/22/23 History duloxetine 30 mg capsule,delayed See Rx Instructions .Route .COMPLEX 05/22/23 05/22/23 History release metoclopramide HCl 5 mg tablet 5 mg PO TIDM PRN Dyspepsia 05/22/23 05/22/23 History naproxen 250 mg tablet 250 mg PO BID 05/22/23 05/22/23 History sucralfate 100 mg/mL oral 10 ml PO TIDM PRN Dyspepsia 05/22/23 05/22/23 History suspension sumatriptan succinate 50 mg tablet 100 mg PO UD PRN migraines 05/22/23 05/22/23 History valacyclovir 1 gram tablet 2,000 mg PO Q12H PRN flare 05/22/23 05/22/23 History Allergies Allergy/AdvReac Type Severity Reaction Status Date / Time tramadol AdvReac Mild DID NOT Verified 05/22/23 09:22 HELP WITH PAIN RELIEF Past Med/Surg History Medical History Anxiety and depression Arthritis Degenerative disc disease LUMBAR Fibromyalgia GERD (gastroesophageal reflux disease) History of skin cancer Hx of Clostridium difficile infection 2014 > [facility] Migraine Pulmonary embolism 2014 > blood thinners FOR SHORT PERIOD TIME (? CAUSED BY CONTROL) Spinal stenosis Surgical History H/O exploratory laparotomy History of cholecystectomy History of cholecystectomy History of colonoscopy History of esophagogastroduodenoscopy (EGD) History of knee surgery left knee X 2-OPEN AND ARTHROSCOPIC 1997 History of tooth extraction Hx of shoulder surgery RT S/P laparoscopic hysterectomy OVARIES REMAIN 2016 S/P lumbar spinal fusion 2017 & 2018 Family History Grandfather Family history of diabetes mellitus Grandmother Family history of diabetes mellitus Grandmother Family hx of colon cancer Grandmother (Maternal) Diabetes Colorectal cancer Father Heart disease Mother Hypertension Uncle Stroke Other Cancer Gall bladder disease Lung disease No family history of adverse response to anesthesia Social History Smoking Status: Never smoker Second Hand Exposure: No; Do You Dip or Chew Tobacco: No; Hx Alcohol Use: Yes Alcohol type: wine Alcohol Intake Frequency: Monthly or Less Hx Substance Use: Yes Substance Use Type Other:: liquid tincture under tongue Preferred Language: Divehi Communication Ability: Effective Visual Impairment: No Limitations 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 Beliefs That Will Affect Care: Protestant Protestant Beliefs: Jehovah Witness Current Living Situation: Spouse Current Living Situation Comment: and son current occupational status: employed 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 Feels Safe at Home: Yes Assistive Devices: None Review of Systems A total of 10 systems reviewed and were otherwise negative Physical Exam Vital Signs Vital Signs - 24 hr 05/22/23 07:14 05/22/23 07:28 05/22/23 07:28 Temperature 36.9 C Temperature Source Temporal Artery Scan Pulse Rate 99 H Pulse Rate [Right Finger] 102 H Pulse Rhythm [Right Finger] Regular Pulse Strength [Right Finger] Normal Respiratory Rate 20 24 Respiratory Effort / Characteristics Non-Labored Spontaneous Respiratory Depth Normal Normal Respiratory Pattern Blood Pressure 170/101 H Blood Pressure [Right Arm] 176/104 H Blood Pressure Mean 124 Blood Pressure Mean [Right Arm] 128 Blood Pressure Position [Right Arm] Lying Pulse Oximetry 93 94 Oxygen Delivery Method Room Air Room Air Room Air Sepsis Recent Fever Within 48 Hours No Sepsis New/Unexplained Change in Mental Status Yes Sepsis Action Taken by Nursing No Action Required 05/22/23 08:17 05/22/23 09:00 Temperature Temperature Source Pulse Rate 93 H Pulse Rate [Right Finger] 97 H Pulse Rhythm [Right Finger] Regular Pulse Strength [Right Finger] Normal Respiratory Rate 26 H Respiratory Effort / Characteristics Spontaneous Respiratory Depth Normal Respiratory Pattern Rapid/Shallow Tachypnea Blood Pressure Blood Pressure [Right Arm] 132/86 Blood Pressure Mean Blood Pressure Mean [Right Arm] 101 Blood Pressure Position [Right Arm] Lying Pulse Oximetry 92 Oxygen Delivery Method Room Air Sepsis Recent Fever Within 48 Hours Sepsis New/Unexplained Change in Mental Status Sepsis Action Taken by Nursing VITAL SIGNS - Vital signs and nursing notes were reviewed. Stable and afebrile. GENERAL -42-year-old female appearing her stated age who is in no acute distress but appears to be in pain and is tearful. at bedside provides much of the history and communication as the patient notes pain with talking. SKIN - Without rashes. There is a healing surgical incision to the right anterior neck region with overlying surgical glue that appears well. There is no erythema or edema. No dehiscence. No purulence. No fluctuance. HEAD - NC/AT. EYES - PERRL with EOMI bilaterally. Sclera anicteric. EARS - No deformities of external structures noted on gross examination bilaterally. NOSE - Midline and without cyanosis. No epistaxis or purulent drainage noted. MOUTH/OROPHARYNX - Without perioral cyanosis. Buccal mucosa pink and moist and without leukoplakia. Tongue midline with equal elevation of palate bilaterally. No tonsillar hypertrophy, erythema, or exudates noted. Good dentition noted. NECK - No nuchal rigidity. LUNGS - Chest wall symmetric without accessory muscle use, intercostals retractions, or central cyanosis. Normal vesicular breath sounds CTA B/L. No wheezes, rales, or rhonchi appreciated. CARDIAC - RRR EXTREMITIES - No clubbing or peripheral cyanosis. +5/5 strength noted in UE/LE bilaterally. NEUROLOGIC - Cranial nerves II through XII grossly intact. PSYCH - A&O, and cooperates fully with examiner. Pt is very pleasant and interacts well with examiner. Course Administered Medications Acetaminophen (Acetaminophen 500 Mg Tab) 1,000 mg PO Q8H [facility] Stop: 06/21/23 14:59 Last Admin: 05/22/23 15:48 Dose: 1,000 mg Documented By: YESENIA Bupropion HCl (Bupropion Xl 300 Mg Tabcr) 300 mg PO DAILY [facility] Stop: 06/21/23 12:14 Last Admin: 05/22/23 14:39 Dose: 300 mg Documented By: YESENIA Cyclobenzaprine HCl (Cyclobenzaprine Hcl 10 Mg Tab) 10 mg PO TID JA Stop: 06/21/23 11:59 Last Admin: 05/22/23 14:54 Dose: Not Given Documented By: Admin: 05/22/23 12:49 Dose: 10 mg Documented By: YESENIA Docusate Sodium (Docusate Sodium 100 Mg Cap) 100 mg PO BID PRN PRN Reason: Constipation Stop: 06/21/23 12:00 Last Admin: 05/22/23 13:41 Dose: 100 mg Documented By: YESENIA Duloxetine HCl (Duloxetine Hcl 60 Mg Cap) 60 mg PO DAILY [facility] Stop: 06/21/23 12:44 Last Admin: 05/22/23 14:40 Dose: 60 mg Documented By: YESENIA Duloxetine HCl (Duloxetine Hcl 30 Mg Cap) 30 mg PO DAILY [facility] Stop: 06/21/23 12:44 Last Admin: 05/22/23 14:40 Dose: 30 mg Documented By: YESENIA Hydromorphone HCl (Hydromorphone Inj 0.5 Mg/0.5 Ml Syr) 0.5 mg IV Q6H PRN PRN Reason: Severe Pain (Scale 7, 8, 9,10) Stop: 06/05/23 12:35 Last Admin: 05/22/23 13:41 Dose: 0.5 mg Documented By: YESENIA Sodium Chloride (Nss 1000ml) 1,000 mls @ 100 mls/hr IV .Q10H [facility] Stop: 05/22/23 22:14 Last Admin: 05/22/23 12:58 Dose: 100 mls/hr Documented By: YEESNIA Ketorolac Tromethamine (Ketorolac Tromethamine 15 Mg/Ml Vial) 15 mg IV Q6H [facility] Stop: 05/27/23 15:19 Last Admin: 05/22/23 15:49 Dose: 15 mg Documented By: YESENIA Oxycodone HCl (Oxycodone Hcl Ir 5 Mg Tab (Immediate Release)) 5 mg PO Q6H PRN PRN Reason: Mild-Mod Pain (Scale 1-6) Stop: 06/05/23 12:00 Last Admin: 05/22/23 12:48 Dose: 5 mg Documented By: YESENIA Pantoprazole Sodium (Pantoprazole 40 Mg Tab) 40 mg PO QAM [facility] Stop: 06/21/23 13:29 Last Admin: 05/22/23 14:40 Dose: 40 mg Documented By: YESENIA Discontinued Medications Hydromorphone HCl (Hydromorphone Inj 0.5 Mg/0.5 Ml Syr) 0.5 mg IV NOW STA Stop: 05/22/23 07:34 Last Admin: 05/22/23 07:41 Dose: 0.5 mg Documented By: MELVIN Hydromorphone HCl (Hydromorphone Inj 0.5 Mg/0.5 Ml Syr) 0.5 mg IV NOW STA Stop: 05/22/23 08:52 Last Admin: 05/22/23 09:05 Dose: 0.5 mg Documented By: MELVIN Hydromorphone HCl (Hydromorphone Inj 0.5 Mg/0.5 Ml Syr) 0.25 mg IV NOW STA Stop: 05/22/23 10:37 Last Admin: 05/22/23 10:43 Dose: 0.25 mg Documented By: MELVIN Ioversol (Optiray 320 125ml) 115 ml IV ONCE ONE Stop: 05/22/23 07:57 Last Admin: 05/22/23 07:56 Dose: 115 ml Documented By: MCKAY Ketorolac Tromethamine (Ketorolac Tromethamine 15 Mg/Ml Vial) 15 mg IV Q6H PRN PRN Reason: Pain Stop: 05/24/23 10:37 Last Admin: 05/22/23 11:20 Dose: 15 mg Documented By: VERONICA Ketorolac Tromethamine (Ketorolac Tromethamine 15 Mg/Ml Vial) 15 mg IV Q6H [facility] Stop: 05/27/23 11:59 Last Admin: 05/22/23 12:53 Dose: Not Given Documented By: YESENIA Ondansetron HCl (Ondansetron Inj 2 Mg/Ml 2 Ml Vial) 4 mg IV NOW STA Stop: 05/22/23 07:34 Last Admin: 05/22/23 07:40 Dose: 4 mg Documented By: MELVIN Polyethylene Glycol (Polyethylene (Miralax) 17 Gm Pack) 17 gm PO DAILY PRN PRN Reason: Constipation Stop: 06/21/23 12:35 Last Admin: 05/22/23 13:41 Dose: 17 gm Documented By: YESENIA Medical Decision Making Laboratory Data 05/22/23 07:29 05/22/23 07:29 Lab Results 05/22/23 05/22/23 05/22/23 Range/Units 07:29 07:29 07:29 WBC 13.43 H (4.8-10.8) K/ul RBC 4.21 (4.20-5.40) M/uL Hgb 12.4 (12.0-16.0) g/dl POC Hgb (12.0-16.0) g/dl Hct 38.0 (37.0-47.0) % POC Hct (37-47) % MCV 90.3 (80.0-100.0) fL MCH 29.5 (25.0-34.0) pg MCHC 32.6 (32.0-36.0) g/dL RDW Std Deviation 43.0 (36.4-46.3) fL RDW Coeff of Rm 13.1 (11.5-14.5) % Plt Count 215 (130-400) K/uL MPV 10.3 (9.4-12.4) fL Immature Gran % (Auto) 0.4 % Neut % (Auto) 83.0 % Lymph % (Auto) 8.6 % Ware % (Auto) 5.1 % Eos % (Auto) 2.8 % Baso % (Auto) 0.1 % Neut # (Auto) 11.15 H (1.40-6.50) K/uL Lymph # (Auto) 1.15 L (1.2-3.4) K/uL Ware # (Auto) 0.68 H (0.11-0.59) K/uL Eos # (Auto) 0.38 (0-0.50) K/uL Baso # (Auto) 0.02 (0-0.2) K/uL Immature Gran # (Auto) 0.05 (0.01-0.20) K/uL PT 10.1 (9.0-12.0) Seconds INR 0.9 (0.9-1.1) APTT 24.8 (21.0-31.0) Seconds PTT Ratio 0.9 POC Sodium (135-144) mmol/L Sodium 136 (136-145) mmol/L POC Potassium (3.3-5.0) mmol/L Potassium 3.6 (3.5-5.1) mmol/L POC Chloride (101-112) mmol/L Chloride 105 (98-107) mmol/L Carbon Dioxide 26 (21-32) mmol/L POC Total CO2 (24-31) mmol/L Anion Gap 5 (3-11) POC Anion Gap (16-25) mmol/L POC BUN (7-18) mg/dl BUN 9 (6-23) mg/dl Creatinine 0.81 (0.6-1.2) mg/dl POC Creatinine (0.6-1.3) mg/dl Est Cr Clr Drug Dosing 107.9 ml/min Est GFR ( Amer) 102.4 ml/min Est GFR (Non-Af Amer) 88.3 ml/min BUN/Creatinine Ratio 11.1 (10-20) Glucose 125 H (70-99(Fasting)) mg/dl POC Glucose (other) (70-99) mg/dl Calcium 8.2 L (8.6-10.3) mg/dl POC Ioniz Calcium Seth (1.12-1.32) mmol/l Magnesium 1.8 (1.7-2.4) mg/dl Total Bilirubin 0.7 (0.2-1.0) mg/dl AST 73 H (13-39) U/L ALT 58 H (7-52) U/L Alkaline Phosphatase 62 (34-104) U/L Troponin I High Sens 6.8 (0-14) pg/ml Total Protein 6.6 (6.0-8.3) gm/dl Albumin 3.7 (3.4-5.0) gm/dl Globulin 2.9 (2.5-4.0) gm/dl Albumin/Globulin Ratio 1.3 (0.9-2) 05/22/23 Range/Units 07:34 WBC (4.8-10.8) K/ul RBC (4.20-5.40) M/uL Hgb (12.0-16.0) g/dl POC Hgb 13.6 (12.0-16.0) g/dl Hct (37.0-47.0) % POC Hct 40 (37-47) % MCV (80.0-100.0) fL MCH (25.0-34.0) pg MCHC (32.0-36.0) g/dL RDW Std Deviation (36.4-46.3) fL RDW Coeff of Rm (11.5-14.5) % Plt Count (130-400) K/uL MPV (9.4-12.4) fL Immature Gran % (Auto) % Neut % (Auto) % Lymph % (Auto) % Ware % (Auto) % Eos % (Auto) % Baso % (Auto) % Neut # (Auto) (1.40-6.50) K/uL Lymph # (Auto) (1.2-3.4) K/uL Ware # (Auto) (0.11-0.59) K/uL Eos # (Auto) (0-0.50) K/uL Baso # (Auto) (0-0.2) K/uL Immature Gran # (Auto) (0.01-0.20) K/uL PT (9.0-12.0) Seconds INR (0.9-1.1) APTT (21.0-31.0) Seconds PTT Ratio POC Sodium 138 (135-144) mmol/L Sodium (136-145) mmol/L POC Potassium 3.6 (3.3-5.0) mmol/L Potassium (3.5-5.1) mmol/L POC Chloride 101 (101-112) mmol/L Chloride (98-107) mmol/L Carbon Dioxide (21-32) mmol/L POC Total CO2 23 L (24-31) mmol/L Anion Gap (3-11) POC Anion Gap 18.0 (16-25) mmol/L POC BUN 8 (7-18) mg/dl BUN (6-23) mg/dl Creatinine (0.6-1.2) mg/dl POC Creatinine 0.8 (0.6-1.3) mg/dl Est Cr Clr Drug Dosing ml/min Est GFR ( Amer) ml/min Est GFR (Non-Af Amer) ml/min BUN/Creatinine Ratio (10-20) Glucose (70-99(Fasting)) mg/dl POC Glucose (other) 128 H (70-99) mg/dl Calcium (8.6-10.3) mg/dl POC Ioniz Calcium Seth 1.14 (1.12-1.32) mmol/l Magnesium (1.7-2.4) mg/dl Total Bilirubin (0.2-1.0) mg/dl AST (13-39) U/L ALT (7-52) U/L Alkaline Phosphatase (34-104) U/L Troponin I High Sens (0-14) pg/ml Total Protein (6.0-8.3) gm/dl Albumin (3.4-5.0) gm/dl Globulin (2.5-4.0) gm/dl Albumin/Globulin Ratio (0.9-2) Imaging Data Radiologist's Impression: Chest CTA 05/22/23 07:33 CT angio chest PE protocol CT DOSE: 807.93 mGy.cm HISTORY: 42 years-old Female with chest pain and dyspnea following recent surgery. Acute shortness of breath with chest pain TECHNIQUE: Multiple CTA images of the chest were obtained after the intravenous administration of 115 ml Optiray. Coronal and sagittal MIPS were obtained from the axial data set and were submitted for review. All measurements were obtained according to NASCET criteria. A dose lowering technique was utilized adhering to the principles of ALARA. COMPARISON: Chest radiograph of same day, CTA chest 11/28/2007 FINDINGS: CTA: The heart is normal in size. No pericardial effusion. Unremarkable thoracic aorta. No pulmonary emboli are identified. CT CHEST: There is mild subcutaneous and deep tissue edema within the right lower neck surrounding the right sternocleidomastoid musculature with small amount of in flammatory stranding and deep tissue edema extending into the right tracheoesophageal recess and superior mediastinum. Subcentimeter mediastinal, hilar and axillary lymph nodes. Trace right and small left pleural effusions with mild dependent bibasilar consolidation. There is no pneumothorax or overt pulmonary edema. Central airways are patent. Mild pneumobilia is likely secondary to postcholecystectomy status. No acute fracture. 9 mm lesion of the upper medial quadrant right breast with adjacent calcification versus biopsy clip. IMPRESSION: 1. No pulmonary emboli identified. 2. Small left and trace right pleural effusions with mild dependent bibasilar consolidation favoring atelectasis. 3. Subcutaneous and deep tissue emphysema within the right neck with i nflammatory stranding tracking into the upper mediastinum, likely expected postoperative changes. Correlation with surgical history recommended. No postoperative fluid collection identified. ACT 112: Negative or not required by law. The above report was generated using voice recognition software. It may contain grammatical, syntax or spelling errors. Electronically signed by: Jaleel Hall M.D. 05/22/2023 8:45 AM Chest X-Ray 05/22/23 07:33 XR chest 1V portable HISTORY: 42 years-old Female chest heaviness, dyspnea acute chest pain COMPARISON: CTA chest of same day TECHNIQUE: AP view of the chest FINDINGS: Cardiomediastinal and hilar silhouettes are within normal limits. Mild bibasilar opacities. No pneumothorax, or airspace consolidation. Small pleural effusions. Cervical spine discectomy changes. Cholecystectomy. IMPRESSION: Small pleural effusions with bibasilar opacities favoring atelectasis. ACT 112: Negative or not required by law. The above report was generated using voice recognition software. It may contain grammatical, syntax or spelling errors. Electronically signed by: Jaleel Hall M.D. 05/22/2023 8:47 AM MDM Narrative Patient was seen and evaluated as above in room C07. Review was performed of triage nursing notes and vital signs. After obtaining a thorough history and physical examination the above work up was performed. Patient presents to us today for assessment of shortness of breath, chest pressure and pain status post C-spine procedure this past . Patient overall well-appearing but does appear to be in pain. No signs of infection clinically. No deficits on examination. Options of care were discussed with the patient. EKG reveals sinus tachycardia at a rate of 102 bpm. QTc 411. QRS 96. There is no ST elevation. IV access was established. Labs were drawn. Chest x-ray was obtained and with what appears to be small pleural effusions and patient then sent for CTA of the chest noting her history of PE now in the setting of postoperative chest pressure/pain. CTA of the chest was negative for PE. Small left and trace right pleural effusions noted with mild dependent bibasilar consolidation favoring atelectasis. Subcutaneous and deep tissue emphysema within the right neck with inflammatory stranding tracking into the upper mediastinum likely expected postoperative change per CT report which I agree with clinically noting the patient's recent history of that area. Labs reveal mild leukocytosis 13.43 which may be secondary to stress response, infection versus postoperative lab change. No anemia. Coags normal. No emergent metabolic disturbance. Glucose 128. Mild transaminitis 73 and 58. Patient denies taking any excessive acetaminophen use beyond package recommendation. Troponin here returned normal. Urinalysis does not suggest infection. COVID testing is negative. Patient did require several doses of IV analgesia while here in the emergency de partment. I do suspect her pain is secondary to expected postoperative pain. I discussed presentation with the on-call neurosurgeon at [facility]. I spoke with Dr. Festus Brennan, chief resident for the neurosurgery service. Plan at this time is admission here for pain control. Recommendation was to incorporate antispasmodics as well as NSAIDs and while admitted the NSAID IV Tor adol would be reasonable. I do not believe the patient requires transfer to their facility. No evidence of surgical complication on examination at this time. Case discussed with the hospitalist service. Please refer to further documentation regarding her stay. An order was placed for continuous cardiac monitoring which revealed normal sinus rhythm at a rate of 92 bpm. GCS: 15 In the evaluation and treatment of this patient the following differential diagnoses were entertained: Postoperative pain. Postoperative infection, dissection, DE, PE, pericarditis, costochondritis, pneumothorax, among others. Impression & Plan Postoperative pain, Chest pain, H/O cervical spine surgery Discharge Plan Visit Data Chief Complaint: Shortness of Breath/Dyspnea Stated Complaint: SOB, POST OP SURGERY ED Provider: Eleuterio Haley ED Midlevel Provider: Hussain Ann Discharge Problem: Postoperative pain, Chest pain, H/O cervical spine surgery Patient Disposition: Admitted As Inpatient Condition: Good Discharge Instructions Interventions: ED Discharge Assessment Last Done: 05/22/23 12:00
[2023-05-22 07:48] LABS: iSTAT Creatinine 0.8 mg/dl (0.6-1.3); iSTAT Hemoglobin 13.6 g/dl (12.0-16.0); iSTAT Ionized Calcium 1.14 mmol/l (1.12-1.32); iSTAT Potassium 3.6 mmol/L (3.3-5.0)
[2023-05-22] MEDS ORDERED: OPTIRAY 320 125ml IV ONE (07:56)
[2023-05-22 08:06] LABS: Basophils # (auto) 0.02 K/uL (0-0.2); Basophils % (auto) 0.1 %; Eosinophils # (auto) 0.38 K/uL (0-0.50); Eosinophils % (auto) 2.8 %; Hemoglobin 12.4 g/dl (12.0-16.0); Immature Granulocytes # (auto) 0.05 K/uL (0.01-0.20); Immature Granulocytes % (auto) 0.4 %; Lymphocytes # (auto) 1.15 K/uL (1.2-3.4); Lymphocytes % (auto) 8.6 %; Mean Corpuscular Hemoglobin 29.5 pg (25.0-34.0); Mean Corpuscular Hgb Conc 32.6 g/dL (32.0-36.0); Mean Corpuscular Volume 90.3 fL (80.0-100.0); Mean Platelet Volume 10.3 fL (9.4-12.4); Monocytes # (auto) 0.68 K/uL (0.11-0.59); Monocytes % (auto) 5.1 %; Neutrophils # (auto) 11.15 K/uL (1.40-6.50); Platelet Count 215 K/uL (130-400); RDW Coefficient of Variation 13.1 % (11.5-14.5); Red Blood Count 4.21 M/uL (4.20-5.40); White Blood Count 13.43 K/ul (4.8-10.8)
[2023-05-22 08:11] LABS: Albumin Globulin Ratio 1.3 (0.9-2); Albumin Level 3.7 gm/dl (3.4-5.0); BUN Creatinine Ratio 11.1 (10-20); Bilirubin,Total 0.7 mg/dl (0.2-1.0); Calcium 8.2 mg/dl (8.6-10.3); Creatinine Clr Calc Pharmacy 107.9 ml/min; Est GFR (African American) 102.4 ml/min; Est GFR (Non-African American) 88.3 ml/min; Globulin 2.9 gm/dl (2.5-4.0); Magnesium 1.8 mg/dl (1.7-2.4); Potassium 3.6 mmol/L (3.5-5.1); Total Protein 6.6 gm/dl (6.0-8.3)
[2023-05-22 08:17] LABS: Troponin I High Sensitivity 6.8 pg/ml (0-14)
[2023-05-22 08:27] LABS: INR 0.9 (0.9-1.1); Partial Thromboplastin Ratio 0.9; Partial Thromboplastin Time 24.8 Seconds (21.0-31.0); Prothrombin Time 10.1 Seconds (9.0-12.0)
--- NOTE | 2023-05-22 08:47 | CT Scan Report ---
CT angio chest PE protocol CT DOSE: 807.93 mGy.cm HISTORY: 42 years-old Female with chest pain and dyspnea following recent surgery. Acute shortness of breath with chest pain TECHNIQUE: Multiple CTA images of the chest were obtained after the intravenous administration of 115 ml Optiray. Coronal and sagittal MIPS were obtained from the axial data set and were submitted for review. All measurements were obtained according to NASCET criteria. A dose lowering technique was u tilized adhering to the principles of ALARA. COMPARISON: Chest radiograph of same day, CTA chest 11/28/2007 FINDINGS: CTA: The heart is normal in size. No pericardial effusion. Unremarkable thoracic aorta. No pulmonary embol i are identified. CT CHEST: There is mild subcutaneous and deep tissue edema within the right lower neck surrounding the right st ernocleidomastoid musculature with small amount of inflammatory stranding and deep tissue edema exten ding into the right tracheoesophageal recess and superior mediastinum. Subcentimeter mediastinal, hil ar and axillary lymph nodes. Trace right and small left pleural effusions with mild dependent bibasilar consolidation. There is no pneumothorax or overt pulmonary edema. Central airways are patent. Mild pneumobilia is likely second julisa to postcholecystectomy status. No acute fracture. 9 mm lesion of the upper medial quadrant right breast with adjacent calcification versus biopsy clip. IMPRESSION: 1. No pulmonary emboli identified. 2. Small left and trace right pleural effusions with mild dependent bibasilar consolidation favoring atelectasis. 3. Subcutaneous and deep tissue emphysema within the right neck with inflammatory stranding tracking into the upper mediastinum, likely expected postoperative changes. Correlation with surgical history recommended. No postoperative fluid collection identified. ACT 112: Negative or not required by law. The above report was generated using voice recognition software. It may contain grammatical, syntax o r spelling errors. Electronically signed by: Jaleel Hall M.D. 05/22/2023 8:45 AM
--- NOTE | 2023-05-22 08:49 | XRay Report ---
XR chest 1V portable HISTORY: 42 years-old Female chest heaviness, dyspnea acute chest pain COMPARISON: CTA chest of same day TECHNIQUE: AP view of the chest FINDINGS: Cardiomediastinal and hilar silhouettes are within normal limits. Mild bibasilar opacities. No pneumo thorax, or airspace consolidation. Small pleural effusions. Cervical spine discectomy changes. Cholec ystectomy. IMPRESSION: Small pleural effusions with bibasilar opacities favoring atelectasis. ACT 112: Negative or not required by law. The above report was generated using voice recognition software. It may contain grammatical, syntax o r spelling errors. Electronically signed by: Jaleel Hall M.D. 05/22/2023 8:47 AM
[2023-05-22] MEDS ORDERED: KETOROLAC TROMETHAMINE 15 MG/ML VIAL IV PRN (10:38)
--- NOTE | 2023-05-22 10:42 | History & Physical Report ---
Date of Service May 22, 2023 Assessment & Plan (1) H/O cervical spine surgery: (2) Atypical chest pain: (3) Postoperative pain: (4) Migraine: (5) Anxiety: (6) Depression: (7) Fibromyalgia: (8) GERD (gastroesophageal reflux disease): Plan This is a 42yo F with a PMH of anxiety, depression, fibromyalgia, history of PE, GERD, recent cervical spine surgery at [facility] who presents with neck pain radiating to chest and inability to take a deep breath starting this morning. H/o cervical spine surgery Post-operative pain Underwent C5-C6 ACDA at [facility] on 05/[address] Olson and was discharged home yesterday on naproxen, oxycodone PRN and flexeril BID PRN Woke to painful muscle spasms overnight VSS, no s/sx of infection at surgical site, WBC 13.42 likely reactive process ED provider discussed with pest control technician resident for Dr. Olson's service at [facility] [place]. Brennan who feels this can be treated conservatively at [facility] at this time Recommends scheduled NSAIDs and anti-spasmodic Scheduling Toradol, Flexeril, PRN oxycodone, ice Atypical chest pain Pain seems to be MSK related, referred from neck following muscle spams and is reproducible with palpation of chest wall Doubt ACS- EKG with sinus tachycardia at 102 with nonspecific T wave abn in anterolateral leads, no acute ST changes. HS troponin negative, EKG CTA chest without evidence of PE Monitor overnight on tele H/o migraine headaches Sumatriptan PRN Anxiety Depression Fibromyalgia Given missed AM doses of bupropion, duloxetine GERD Continue PPI DVT Ppx: SCDs for now(POD#2) Code status: FULL PCP: Micheal Brownlee Dispo: Observation med tele Patient seen in collaboration with Dr. Price. Please see addendum. I spent a total of 75 minutes coordinating, documenting, and providing care for this patient excluding time spent in the performance of separately billed services. History of Present Illness Chief Complaint: neck pain, chest pain Primary Care Provider: Tiny Brownlee, DO This is a 42yo F with a PMH of anxiety, depression, fibromyalgia, history of PE, GERD, recent cervical spine surgery at [facility] who presents with neck pain radiating to chest and inability to take a deep breath starting this morning. Underwent C5-C6 ACDA at [facility] on 05/[address] Olson and was discharged home yesterday on naproxen, oxycodone PRN and flexeril BID PRN. Thomson okay when she was going to bed and positioned herself carefully but in the desktop manager woke up with a severe muscle spasm on right side of neck that left her in tears. Pain persisted throughout the rest of the night despite taking medication she was discharged on and pain radiated to anterior chest wall and made it difficult for her to take a deep breath. brought her to ED for further evaluation early this morning. Patient still in significant pain at surgical site of right anterior cervical spine despite multiple doses of IV Dilaudid. No fever, chills or evidence of infection at surgical site. Denies any palpitations, lightheadedness, near-syncope, nausea, vomiting, abdominal pain, dysuria, diarrhea or constipation. Does have history of PE back in 2014 that was thought to be due to control and was on anticoagulation for short time only. Allergies Allergy/AdvReac Type Severity Reaction Status Date / Time tramadol AdvReac Mild DID NOT Verified 05/22/23 09:22 HELP WITH PAIN RELIEF Home Medications Medication Instructions Recorded Confirmed Type hydroxyzine HCl 25 mg tablet 25 mg PO Q6H PRN Anxiety 04/25/20 05/22/23 History omeprazole 40 mg capsule,delayed 40 mg PO QAM 04/25/20 05/22/23 History release loratadine 10 mg tablet 10 mg PO QAM 12/03/20 05/22/23 History promethazine 25 mg tablet 25 mg PO Q6H PRN Nausea And 12/03/20 05/22/23 History Vomiting Medical Marijuana 1 dose PO HS sleep 05/16/21 05/22/23 History sennosides 8.6 mg tablet (Senokot) 8.6 mg PO HS PRN Constipation 09/21/21 05/22/23 History duloxetine 60 mg capsule,delayed See Rx Instructions .Route .COMPLEX 02/18/22 05/22/23 History release oxycodone 5 mg tablet 5 mg PO Q6H PRN pain #10 tabs 02/18/22 05/22/23 Rx acidophilus 100 million 1 cap PO DAILY 05/22/23 05/22/23 History cell-pectin, citrus 10 mg capsule ascorbic acid (vitamin C) 500 mg 500 mg PO DAILY 05/22/23 05/22/23 History tablet bupropion HCl 300 mg 24 hr tablet, 300 mg PO DAILY 05/22/23 05/22/23 History extended release celecoxib 100 mg capsule 100 mg PO DAILY PRN Pain 05/22/23 05/22/23 History cyclobenzaprine 10 mg tablet 10 mg PO BID PRN muscle spasm 05/22/23 05/22/23 History docusate sodium 100 mg tablet 100 mg PO BID PRN Constipation 05/22/23 05/22/23 History duloxetine 30 mg capsule,delayed See Rx Instructions .Route .COMPLEX 05/22/23 05/22/23 History release metoclopramide HCl 5 mg tablet 5 mg PO TIDM PRN Dyspepsia 05/22/23 05/22/23 History naproxen 250 mg tablet 250 mg PO BID 05/22/23 05/22/23 History sucralfate 100 mg/mL oral 10 ml PO TIDM PRN Dyspepsia 05/22/23 05/22/23 History suspension sumatriptan succinate 50 mg tablet 100 mg PO UD PRN migraines 05/22/23 05/22/23 History valacyclovir 1 gram tablet 2,000 mg PO Q12H PRN flare 05/22/23 05/22/23 History Past Med/Surg History Medical History Anxiety and depression Arthritis Degenerative disc disease LUMBAR Fibromyalgia GERD (gastroesophageal reflux disease) History of skin cancer Hx of Clostridium difficile infection 2014 > [facility] Migraine Pulmonary embolism 2014 > blood thinners FOR SHORT PERIOD TIME (? CAUSED BY CONTROL) Spinal stenosis Surgical History H/O exploratory laparotomy History of cholecystectomy History of cholecystectomy History of colonoscopy History of esophagogastroduodenoscopy (EGD) History of knee surgery left knee X 2-OPEN AND ARTHROSCOPIC 1997 History of tooth extraction Hx of shoulder surgery RT S/P laparoscopic hysterectomy OVARIES REMAIN 2016 S/P lumbar spinal fusion 2017 & 2018 Family History Grandfather Family history of diabetes mellitus Grandmother Family history of diabetes mellitus Grandmother Family hx of colon cancer Grandmother (Maternal) Diabetes Colorectal cancer Father Heart disease Mother Hypertension Uncle Stroke Other Cancer Gall bladder disease Lung disease No family history of adverse response to anesthesia Social History Smoking Status: Never smoker Second Hand Exposure: No; Do You Dip or Chew Tobacco: No; Hx Alcohol Use: Yes Alcohol type: wine Alcohol Intake Frequency: Monthly or Less Hx Substance Use: Yes Substance Use Type Other:: liquid tincture under tongue Preferred Language: [place] Communication Ability: Effective Visual Impairment: No Limitations Block And Case Maker Required: No Beliefs That Will Affect Care: Evangelical Evangelical Beliefs: Jehovah Witness Current Living Situation: Spouse Current Living Situation Comment: and son current occupational status: employed 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 Physical Exam Physical Exam: General Appearance: WD/WN, vitals as above, NAD, sitting up in bed, appears uncomfortable Head: normocephalic, atraumatic Eyes: normal inspection, PERRL, conjunctivae normal, anicteric sclerae ENT: external ear and nose normal, oropharynx normal Neck: normal visual inspection, + R anterior cervical incision c/d/i, no drainage, reduced ROM 2/2 pain Respiratory: normal respiratory effort, shallow breathing 2/2 pain, no wheeze, rales, rhonchi. No accessory muscle use Cardiovascular: regular rate, rhythm, no murmur, normal peripheral pulses, no BLE edema. Vessels: no JVD Chest: normal inspection of chest, reproducible pain on palpation of chest wall Abdomen/GI: normal bowel sounds, soft, nontender, no hepatosplenomegaly Extremities/Musculoskeletal: no cyanosis or clubbing, extremities motor strength 5/5 Neurologic: PERRL, EOMI, accommodation nl, no face palsy, no dysarthria, CN's II-XI intact bilaterally and moves all extremities Psychiatric: A+Ox3, euthymic affect Skin: no rashes, normal color, warm/dry Results & Data Results & Data Vital Signs (Past 12 Hours) Vital Signs Temp Pulse Pulse Resp BP BP Pulse Ox 05/22/23 09:00 97 H 26 H 132/86 92 05/22/23 08:17 93 H 05/22/23 07:28 102 H 24 176/104 H 94 05/22/23 07:28 05/22/23 07:14 36.9 C 99 H 20 170/101 H 93 O2 Del Method 05/22/23 09:00 Room Air 05/22/23 08:17 05/22/23 07:28 Room Air 05/22/23 07:28 Room Air 05/22/23 07:14 Room Air Laboratory Results Short CBC 05/22/23 Range/Units 07:29 WBC 13.43 H (4.8-10.8) K/ul Hgb 12.4 (12.0-16.0) g/dl Hct 38.0 (37.0-47.0) % Plt Count 215 (130-400) K/uL BMP 05/22/23 07:29 Sodium 136 Potassium 3.6 Chloride 105 Carbon Dioxide 26 BUN 9 Creatinine 0.81 Glucose 125 H Calcium 8.2 L Liver Function 05/22/23 Range/Units 07:29 Total Bilirubin 0.7 (0.2-1.0) mg/dl AST 73 H (13-39) U/L ALT 58 H (7-52) U/L Alkaline Phosphatase 62 (34-104) U/L Albumin 3.7 (3.4-5.0) gm/dl Urine 05/22/23 Range/Units 11:30 Urine Color Yellow Urine Appearance Clear (Clear) Urine pH 6.0 (4.5-7.5) Ur Specific [place] > 1.045 H (1.000-1.030) Urine Protein Negative (Negative) Urine Glucose (UA) Negative (Negative) Diagnostic Findings Chest CTA 05/22/23 07:33 CT angio chest PE protocol CT DOSE: 807.93 mGy.cm HISTORY: 42 years-old Female with chest pain and dyspnea following recent surgery. Acute shortness of breath with chest pain TECHNIQUE: Multiple CTA images of the chest were obtained after the intravenous administration of 115 ml Optiray. Coronal and sagittal MIPS were obtained from the axial data set and were submitted for review. All measurements were obtained according to NASCET criteria. A dose lowering technique was utilized adhering to the principles of ALARA. COMPARISON: Chest radiograph of same day, CTA chest 11/28/2007 FINDINGS: CTA: The heart is normal in size. No pericardial effusion. Unremarkable thoracic aorta. No pulmonary emboli are identified. CT CHEST: There is mild subcutaneous and deep tissue edema within the right lower neck surrounding the right sternocleidomastoid musculature with small amount of inflammatory stranding and deep tissue edema extending into the right tracheoesophageal recess and superior mediastinum. Subcentimeter mediastinal, hilar and axillary lymph nodes. Trace right and small left pleural effusions with mild dependent bibasilar consolidation. There is no pneumothorax or overt pulmonary edema. Central airways are patent. Mild pneumobilia is likely secondary to postcholecystectomy status. No acute fracture. 9 mm lesion of the upper medial quadrant right breast with adjacent calcification versus biopsy clip. IMPRESSION: 1. No pulmonary emboli identified. 2. Small left and trace right pleural effusions with mild dependent bibasilar consolidation favoring atelectasis. 3. Subcutaneous and deep tissue emphysema within the right neck with inflammatory stranding tracking into the upper mediastinum, likely expected postoperative changes. Correlation with surgical history recommended. No postoperative fluid collection identified. ACT 112: Negative or not required by law. The above report was generated using voice recognition software. It may contain grammatical, syntax or spelling errors. Electronically signed by: Jaleel Hall M.D. 05/22/2023 8:45 AM Chest X-Ray 05/22/23 07:33 XR chest 1V portable HISTORY: 42 years-old Female chest heaviness, dyspnea acute chest pain COMPARISON: CTA chest of same day TECHNIQUE: AP view of the chest FINDINGS: Cardiomediastinal and hilar silhouettes are within normal limits. Mild bibasilar opacities. No pneumothorax, or airspace consolidation. Small pleural effusions. Cervical spine discectomy changes. Cholecystectomy. IMPRESSION: Small pleural effusions with bibasilar opacities favoring atelectasis. ACT 112: Negative or not required by law. The above report was generated using voice recognition software. It may contain grammatical, syntax or spelling errors. Electronically signed by: Jaleel Hall M.D. 05/22/2023 8:47 AM ECG Additional Comments: EKG reviewied: sinus tach at 102 bpm, nonspecific T wave abnormality now evident in Anterolateral leads Supervising Physician Co-Signing Physician Notes 44 year old woman who presents with right sided neck pain radiating down to the chest/trunk with muscle spasms Patient just had cervical spine C5/C6 surgery at [facility] on 05/20/23 and was discharged yesterday ROS notable for constipation Exam notable for surgical scar, no erythema or drainage. Lab notable for WBC of 13K Chest CTA did not show PE but noted small left and trace right pleural effusion with dependent atelectasis, subcut and deep tiss emphysema reported as post op changes. No post op fluid collections. No pneumothorax. Post op cervical surgery ER physician spoke with physician at [facility] and reviewed patient with them. They recommend NSAIDS and antispasmodics Continue IV ketorolac, mariza flexeril Continue pain control Bowel regimen Monitor Other plans as detailed by Melanie Dowd PA-C
[2023-05-22] MEDS ORDERED: COUGH DROP (SUGAR FREE) LOZ 24 LOZ/1 BOX BUCCAL PRN (11:49)
[2023-05-22] MEDS ORDERED: CYCLOBENZAPRINE HCL 10 MG TAB PO PRN (11:57)
[2023-05-22] MEDS ORDERED: KETOROLAC TROMETHAMINE 15 MG/ML VIAL IV SCH (12:00)
[2023-05-22] MEDS ORDERED: SENNA 8.6 MG TAB PO PRN (12:01)
[2023-05-22] MEDS ORDERED: PROMETHAZINE HCL 25 MG TAB PO PRN (12:01)
[2023-05-22] MEDS ORDERED: SUMAtriptan succinate 100 MG TAB PO PRN (12:01)
[2023-05-22] MEDS ORDERED: hydrOXYzine HCl 25 MG TAB PO PRN (12:01)
[2023-05-22 12:11] LABS: Appearance Urine Clear (Clear); Bilirubin Urine Negative (Negative); Blood Urine Negative (Negative); Color Urine Yellow; Glucose Urine UA Negative (Negative); Ketones Urine Negative (Negative); Leukocyte Esterase Urine Negative (Negative); Nitrite Urine Negative (Negative); Protein Urine Negative (Negative); Specific Gravity Urine > 1.045 (1.000-1.030); Urobilinogen Urine Negative (Negative)
[2023-05-22] MEDS ORDERED: SODIUM CHLORIDE 0.9% 1000ML 1,000 ML IV SCH (12:15)
[2023-05-22] MEDS ORDERED: ACETAMINOPHEN 325 MG TAB PO PRN (12:36)
[2023-05-22] MEDS ORDERED: POLYETHYLENE (MIRALAX) 17 GM PACK PO PRN (12:36)
[2023-05-22] MEDS ORDERED: ONDANSETRON INJ 2 MG/ML 2 ML VIAL IV PRN (12:36)
[2023-05-22] MEDS: oxyCODONE HCL IR 5 MG TAB (IMMEDIATE RELEASE) PO PRN ×2 (12:48→19:03)
[2023-05-22] MEDS: CYCLOBENZAPRINE HCL 10 MG TAB PO SCH ×3 (12:49→21:15)
[2023-05-22] MEDS: HYDROmorphone INJ 0.5 MG/0.5 ML SYR IV PRN ×2 (13:41→22:01)
[2023-05-22] MEDS: DOCUSATE SODIUM 100 MG CAP PO PRN (13:41)
[2023-05-22] MEDS: buPROPion XL 300 MG TABCR PO SCH (14:39)
[2023-05-22] MEDS: DULoxetine HCL 30 MG CAP PO SCH (14:40)
[2023-05-22] MEDS: PANTOprazole 40 MG TAB PO SCH (14:40)
[2023-05-22] MEDS: DULoxetine HCL 60 MG CAP PO SCH (14:40)
[2023-05-22] MEDS: ACETAMINOPHEN 500 MG TAB PO SCH ×2 (15:48→22:04)
[2023-05-22] MEDS: KETOROLAC TROMETHAMINE 15 MG/ML VIAL IV SCH ×2 (15:49→21:09)
[2023-05-23] MEDS: oxyCODONE HCL IR 5 MG TAB (IMMEDIATE RELEASE) PO PRN ×2 (02:54→18:37)
[2023-05-23] MEDS: KETOROLAC TROMETHAMINE 15 MG/ML VIAL IV SCH ×2 (03:56→08:15)
[2023-05-23] MEDS: ACETAMINOPHEN 500 MG TAB PO SCH ×3 (06:28→23:02)
[2023-05-23 06:43] LABS: Hematocrit (blood only) 32.5 % (37.0-47.0); Hemoglobin 10.5 g/dl (12.0-16.0); Mean Corpuscular Hemoglobin 29.1 pg (25.0-34.0); Mean Corpuscular Hgb Conc 32.3 g/dL (32.0-36.0); Mean Platelet Volume 10.2 fL (9.4-12.4); Platelet Count 162 K/uL (130-400); RDW Coefficient of Variation 13.1 % (11.5-14.5); RDW Standard Deviation 43.4 fL (36.4-46.3); Red Blood Count 3.61 M/uL (4.20-5.40); White Blood Count 7.86 K/ul (4.8-10.8)
--- NOTE | 2023-05-23 06:56 | Electrocardiogram Report ---
Test Reason : Blood Pressure : / mmHG Vent. Rate : 102 BPM Atrial Rate : 102 BPM P-R Int : 136 ms QRS Dur : 096 ms QT Int : 316 ms P-R-T Axes : 040 -03 017 degrees QTc Int : 411 ms Sinus tachycardia Poor R wave progression, consider anterior ND vs. lead placement vs. LVH Abnormal ECG When compared with ECG of 03-DEC-2020 17:01, Vent. rate has increased BY 34 BPM Nonspecific T wave abnormality now evident in Anterolateral leads Confirmed by Surendra Renteria ([id number]) on 05/23/2023 6:56:03 AM Referred By: REFERRED SELF Confirmed By:Alexis Renteria
[2023-05-23 07:23] LABS: BUN Creatinine Ratio 11.3 (10-20); Calcium 7.9 mg/dl (8.6-10.3); Creatinine Clr Calc Pharmacy 140.9 ml/min; Est GFR (African American) 127.1 ml/min; Est GFR (Non-African American) 109.7 ml/min; Potassium 3.8 mmol/L (3.5-5.1)
[2023-05-23] MEDS: POLYETHYLENE (MIRALAX) 17 GM PACK PO SCH (08:13)
[2023-05-23] MEDS: LORATADINE 10 MG TAB PO SCH (08:14)
[2023-05-23] MEDS: ADVANCED PROBIOTIC 1250 MG CAPSULE PO SCH (08:14)
[2023-05-23] MEDS: DULoxetine HCL 30 MG CAP PO SCH (08:14)
[2023-05-23] MEDS: buPROPion XL 300 MG TABCR PO SCH (08:14)
[2023-05-23] MEDS: ASCORBIC ACID 500 MG TAB PO SCH (08:15)
[2023-05-23] MEDS: PANTOprazole 40 MG TAB PO SCH (08:15)
[2023-05-23] MEDS: DULoxetine HCL 60 MG CAP PO SCH (08:15)
[2023-05-23] MEDS: DOCUSATE SODIUM 100 MG CAP PO PRN (08:22)
[2023-05-23] MEDS: CYCLOBENZAPRINE HCL 10 MG TAB PO SCH ×3 (08:22→20:09)
[2023-05-23] MEDS: HYDROmorphone INJ 0.5 MG/0.5 ML SYR IV PRN ×2 (09:47→21:18)
--- NOTE | 2023-05-23 11:35 | Hospitalist Progress Note ---
Date of Service May 23, 2023 Assessment & Plan (1) H/O cervical spine surgery: (2) Atypical chest pain: (3) Postoperative pain: (4) Migraine: (5) Anxiety: (6) Depression: (7) Fibromyalgia: (8) GERD (gastroesophageal reflux disease): Plan 42yo F with a PMH of anxiety, depression, fibromyalgia, history of PE, GERD, recent cervical spine surgery at [facility] on 05/20/23 and discharged on 05/21/23 who presents with neck pain radiating to chest and inability to take a deep breath H/o cervical spine surgery Post-operative pain Atypical chest pain Underwent C5-C6 ACDA at [facility] on 05/20/[address] Olson and was discharged home on 05/21/23 on naproxen, oxycodone PRN and flexeril BID PRN Woke up to painful muscle spasms overnight Pain seems to be MSK related, referred from neck following muscle spams and is reproducible with palpation of chest wall Chest CTA did not show PE but noted small left and trace right pleural effusion with dependent atelectasis, subcut and deep tiss emphysema reported as post op changes. No post op fluid collections. No pneumothorax Trops was negative There is no signs of infection at surgical site WBC on admission was 13.42 likely reactive process. WBC is normal today ED provider discussed with manager web application surgery resident for Dr. Olson's service at [facility] [place] [facility] Dr. Brennan who feels this can be treated conservatively at [facility] at this time Recommends scheduled NSAIDs and anti-spasmodic Increase toradol to 30mg q6h Continue schedule flexeril, tylenol Continue prn oxycodone Incentive spirometry and flutter Hb is 10.5 today. Possibly dilutional as all cell lines dropped Monitor H/o migraine headaches Sumatriptan PRN Anxiety Depression Fibromyalgia Continue bupropion, duloxetine GERD Continue PPI DVT Ppx: SCDs for now, ambulate Code status: FULL PCP: Micheal Brownlee I spent a total of 50 minutes coordinating, documenting and providing care for this patient excluding time spent in performance of separately billed services Admission and Anticipated Discharge Date Admission Date: May 22, 2023 Subjective Patient seen and examined Still reports right sided neck pain at surgical site that radiates down the chest and back States that toradol improve the pain more than the other pain regimen Reports some SOB due to the pain Denied any dizziness, headache, cough, nausea, vomiting, abd pain. Yet to have a BM Denied any dysuria, freq, urgency, fever, chills Physical Exam Constitutional: + well hydrated; no acute distress Eyes: PERRL, conjunctivae normal, anicteric sclerae ENMT: external ear and nose normal, oropharynx normal Surgical site on right side of neck healing well. No drainage + tenderness. Respiratory: normal respiratory effort, lungs clear to auscultation Cardiovascular: Rate/Rhythm: regular rate and regular rhythm S1 S2 Gastrointestinal (Abdomen): normal bowel sounds, soft, nontender, no hepatosplenomegaly Musculoskeletal: no cyanosis or clubbing, extremities motor strength 5/5 Neurologic: PERRL, EOMI, accommodation nl, no face palsy, no dysarthria Psychiatric: A+Ox3, euthymic affect Results & Data Results & Data Vital Signs (Past 12 Hours) Vital Signs Temp Pulse Pulse Resp BP Pulse Ox O2 Del Method 05/23/23 11:10 36.6 C 86 16 101/65 95 Nasal Cannula 05/23/23 06:00 80 05/23/23 08:00 Room Air 05/23/23 07:36 36.6 C 81 16 115/76 98 Nasal Cannula 05/23/23 05:07 36.7 C 82 20 115/75 98 Nasal Cannula 05/22/23 23:55 36.8 C 82 20 111/74 98 Nasal Cannula O2 Flow Rate 05/23/23 11:10 05/23/23 06:00 05/23/23 08:00 05/23/23 07:36 3 05/23/23 05:07 2 05/22/23 23:55 2 Laboratory Results Abnormal lab results 05/23/23 05/23/23 Range/Units 05:49 05:49 RBC 3.61 L (4.20-5.40) M/uL Hgb 10.5 L (12.0-16.0) g/dl Hct 32.5 L (37.0-47.0) % Calcium 7.9 L (8.6-10.3) mg/dl
[2023-05-23] MEDS: KETOROLAC 30 MG/ML VIAL IV SCH ×2 (14:08→20:10)
[2023-05-23] MEDS: DOCUSATE SODIUM/SENNA 50/8.6MG TAB PO SCH (15:07)
[2023-05-24] MEDS: KETOROLAC 30 MG/ML VIAL IV SCH ×4 (02:51→19:31)
[2023-05-24] MEDS: HYDROmorphone INJ 0.5 MG/0.5 ML SYR IV PRN (04:09)
[2023-05-24 06:28] LABS: Hematocrit (blood only) 32.1 % (37.0-47.0); Hemoglobin 10.4 g/dl (12.0-16.0); Mean Corpuscular Hemoglobin 29.2 pg (25.0-34.0); Mean Corpuscular Hgb Conc 32.4 g/dL (32.0-36.0); Mean Corpuscular Volume 90.2 fL (80.0-100.0); Platelet Count 184 K/uL (130-400); RDW Coefficient of Variation 12.9 % (11.5-14.5); Red Blood Count 3.56 M/uL (4.20-5.40)
[2023-05-24 06:53] LABS: Potassium 4.2 mmol/L (3.5-5.1)
[2023-05-24 06:54] LABS: BUN Creatinine Ratio 11.9 (10-20); Calcium 7.9 mg/dl (8.6-10.3); Creatinine Clr Calc Pharmacy 103.7 ml/min; Est GFR (Non-African American) 84.5 ml/min
[2023-05-24] MEDS: ACETAMINOPHEN 500 MG TAB PO SCH ×3 (08:04→22:26)
[2023-05-24] MEDS: ASCORBIC ACID 500 MG TAB PO SCH (08:06)
[2023-05-24] MEDS: buPROPion XL 300 MG TABCR PO SCH (08:06)
[2023-05-24] MEDS: DOCUSATE SODIUM/SENNA 50/8.6MG TAB PO SCH (08:07)
[2023-05-24] MEDS: DULoxetine HCL 30 MG CAP PO SCH (08:07)
[2023-05-24] MEDS: DULoxetine HCL 60 MG CAP PO SCH (08:07)
[2023-05-24] MEDS: ADVANCED PROBIOTIC 1250 MG CAPSULE PO SCH (08:08)
[2023-05-24] MEDS: POLYETHYLENE (MIRALAX) 17 GM PACK PO SCH (08:08)
[2023-05-24] MEDS: PANTOprazole 40 MG TAB PO SCH (08:08)
[2023-05-24] MEDS: LORATADINE 10 MG TAB PO SCH (08:08)
[2023-05-24] MEDS: CYCLOBENZAPRINE HCL 10 MG TAB PO SCH ×3 (08:11→19:33)
[2023-05-24] MEDS ORDERED: bisacodyL 10 MG SUPP PR STA (10:13)
[2023-05-24] MEDS ORDERED: oxyCODONE HCL IR 5 MG TAB (IMMEDIATE RELEASE) PO PRN ×2 (10:13→13:25)
--- NOTE | 2023-05-24 14:51 | Hospitalist Progress Note ---
Date of Service May 24, 2023 Assessment & Plan (1) H/O cervical spine surgery: (2) Atypical chest pain: (3) Postoperative pain: (4) Migraine: (5) Anxiety: (6) Depression: (7) Fibromyalgia: (8) GERD (gastroesophageal reflux disease): Plan 42yo F with a PMH of anxiety, depression, fibromyalgia, history of PE, GERD, recent cervical spine surgery at [facility] on 05/20/23 and discharged on 05/21/23 who presents with neck pain radiating to chest and inability to take a deep breath H/o cervical spine surgery Post-operative pain Atypical chest pain Underwent C5-C6 ACDA at [facility] on 05/20/[address] Olson and was discharged home on 05/21/23 on naproxen, oxycodone PRN and flexeril BID PRN Woke up to painful muscle spasms overnight Pain seems to be MSK related, referred from neck following muscle spams and is reproducible with palpation of chest wall Chest CTA did not show PE but noted small left and trace right pleural effusion with dependent atelectasis, subcut and deep tiss emphysema reported as post op changes. No post op fluid collections. No pneumothorax Trops was negative There is no signs of infection at surgical site WBC on admission was 13.42 likely reactive process. WBC is normalized ED provider discussed with rn neonatal icu surgery resident for Dr. Olson's service at [facility] Dr. Brennan who feels this can be treated conservatively at [facility] at this time Recommends scheduled NSAIDs and anti-spasmodic Continue toradol to 30mg q6h Continue schedule flexeril, tylenol Continue prn oxycodone Incentive spirometry and flutter Aggressive bowel regimen for constipation Hb is stable in 10s Monitor H/o migraine headaches Sumatriptan PRN Anxiety Depression Fibromyalgia Continue bupropion, duloxetine GERD Continue PPI DVT Ppx: SCDs for now, ambulate Code status: FULL PCP: Micheal Brownlee I spent a total of 45 minutes coordinating, documenting and providing care for this patient excluding time spent in performance of separately billed services Admission and Anticipated Discharge Date Admission Date: May 22, 2023 Subjective Patient seen and examined Reports neck pain is still present but improving compared to yesterday Still reports pain occasionally radiating to chest and back Weaned off oxygen Reports constipation Denied any nausea,vomiting, abd pain Physical Exam Constitutional: + well hydrated; no acute distress Eyes: PERRL, conjunctivae normal, anicteric sclerae ENMT: external ear and nose normal, oropharynx normal Neck: Surgical site on right side of neck healing well Respiratory: normal respiratory effort, lungs clear to auscultation Cardiovascular: Rate/Rhythm: regular rate and regular rhythm S1 S2 Gastrointestinal (Abdomen): normal bowel sounds, soft, nontender, no hepatosplenomegaly Musculoskeletal: no cyanosis or clubbing, extremities motor strength 5/5 Neurologic: PERRL, EOMI, accommodation nl, no face palsy, no dysarthria Psychiatric: A+Ox3, euthymic affect Results & Data Results & Data Vital Signs (Past 12 Hours) Vital Signs Temp Pulse Pulse Pulse Resp BP Pulse Ox 05/24/23 11:27 36.7 C 75 16 104/60 95 05/24/23 09:53 93 05/24/23 08:32 05/24/23 07:54 37.1 C 77 16 112/72 95 05/24/23 06:01 73 05/24/23 05:14 36.7 C 79 20 109/74 97 O2 Del Method O2 Flow Rate 05/24/23 11:27 Room Air 05/24/23 09:53 Room Air 05/24/23 08:32 Nasal Cannula 2 05/24/23 07:54 Room Air 05/24/23 06:01 05/24/23 05:14 Nasal Cannula 2 Laboratory Results Abnormal lab results 05/24/23 05/24/23 Range/Units 06:08 06:08 RBC 3.56 L (4.20-5.40) M/uL Hgb 10.4 L (12.0-16.0) g/dl Hct 32.1 L (37.0-47.0) % Anion Gap 2 L (3-11) Calcium 7.9 L (8.6-10.3) mg/dl
[2023-05-24] MEDS ORDERED: MAGNESIUM CITRATE 296 ML/BTL PO STA (15:09)
[2023-05-25] MEDS: KETOROLAC 30 MG/ML VIAL IV SCH ×2 (02:02→07:59)
[2023-05-25] MEDS: ACETAMINOPHEN 500 MG TAB PO SCH (06:18)
[2023-05-25 07:26] LABS: Hematocrit (blood only) 33.1 % (37.0-47.0); Hemoglobin 10.7 g/dl (12.0-16.0); Mean Corpuscular Hgb Conc 32.3 g/dL (32.0-36.0); Mean Corpuscular Volume 89.7 fL (80.0-100.0); Mean Platelet Volume 9.9 fL (9.4-12.4); Platelet Count 237 K/uL (130-400); RDW Standard Deviation 42.5 fL (36.4-46.3); Red Blood Count 3.69 M/uL (4.20-5.40); White Blood Count 6.26 K/ul (4.8-10.8)
[2023-05-25 07:37] LABS: BUN Creatinine Ratio 15.2 (10-20); Calcium 8.1 mg/dl (8.6-10.3); Creatinine Clr Calc Pharmacy 110.2 ml/min; Est GFR (African American) 105.5 ml/min; Potassium 4.2 mmol/L (3.5-5.1)
[2023-05-25] MEDS: ASCORBIC ACID 500 MG TAB PO SCH (08:00)
[2023-05-25] MEDS: buPROPion XL 300 MG TABCR PO SCH (08:00)
[2023-05-25] MEDS: CYCLOBENZAPRINE HCL 10 MG TAB PO SCH (08:00)
[2023-05-25] MEDS: ADVANCED PROBIOTIC 1250 MG CAPSULE PO SCH (08:01)
[2023-05-25] MEDS: DOCUSATE SODIUM/SENNA 50/8.6MG TAB PO SCH (08:01)
[2023-05-25] MEDS: DULoxetine HCL 30 MG CAP PO SCH (08:01)
[2023-05-25] MEDS: DULoxetine HCL 60 MG CAP PO SCH (08:01)
[2023-05-25] MEDS: LORATADINE 10 MG TAB PO SCH (08:02)
[2023-05-25] MEDS: POLYETHYLENE (MIRALAX) 17 GM PACK PO SCH (08:02)
[2023-05-25] MEDS: PANTOprazole 40 MG TAB PO SCH (08:02)
--- NOTE | 2023-05-25 09:50 | Discharge Summary ---
Date of Service May 25, 2023 Admission HPI Per Admitting Provider This is a 42yo F with a PMH of anxiety, depression, fibromyalgia, history of PE, GERD, recent cervical spine surgery at [facility] who presents with neck pain radiating to chest and inability to take a deep breath starting this morning. Underwent C5-C6 ACDA at [facility] on 05/[address] Olson and was discharged home yesterday on naproxen, oxycodone PRN and flexeril BID PRN. 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 Pain persisted throughout the rest of the night despite taking medication she was discharged on and pain radiated to anterior chest wall and made it difficult for her to take a deep breath. brought her to ED for further evaluation early this morning. Patient still in significant pain at surgical site of right anterior cervical spine despite multiple doses of IV Dilaudid. No fever, chills or evidence of infection at surgical site. Denies any palpitations, lightheadedness, near-syncope, nausea, vomiting, abdominal pain, dysuria, diarrhea or constipation. Does have history of PE back in 2014 that was thought to be due to control and was on anticoagulation for short time only. Admission Exam Per Admitting Provider General Appearance:WD/WN, vitals as above, NAD, sitting up in bed, appears uncomfortable Head: normocephalic, atraumatic Eyes:normal inspection, PERRL, conjunctivae normal, anicteric sclerae ENT: external ear and nose normal, oropharynx normal Neck: normal visual inspection, + R anterior cervical incision c/d/i, no drainage, reduced ROM 2/2 pain Respiratory:normal respiratory effort, shallow breathing 2/2 pain, no wheeze, rales, rhonchi. No accessory muscle use Cardiovascular: regular rate, rhythm, no murmur, normal peripheral pulses, no BLE edema. Vessels: no JVD Chest: normal inspection of chest, reproducible pain on palpation of chest wall Abdomen/GI: normal bowel sounds, soft, nontender, no hepatosplenomegaly Extremities/Musculoskeletal: no cyanosis or clubbing, extremities motor strength 5/5 Neurologic: PERRL, EOMI, accommodation nl, no face palsy, no dysarthria, CN's II-XI intact bilaterally and moves all extremities Psychiatric:A+Ox3, euthymic affect Skin: no rashes, normal color, warm/dry Principal Diagnosis Surgical site pain Chest pain Discharge Exam Constitutional + well hydrated; no acute distress Eyes PERRL, conjunctivae normal, anicteric sclerae ENMT external ear and nose normal, oropharynx normal Neck Well healing surgical site Respiratory normal respiratory effort, lungs clear to auscultation Cardiovascular Rate/Rhythm: regular rate and regular rhythm S1 S2 Gastrointestinal (Abdomen) normal bowel sounds, soft, nontender, no hepatosplenomegaly Musculoskeletal no cyanosis or clubbing, extremities motor strength 5/5 Neurologic PERRL, EOMI, accommodation nl, no face palsy, no dysarthria Psychiatric A+Ox3, euthymic affect Discharge Data Allergies Allergy/AdvReac Type Severity Reaction Status Date / Time tramadol AdvReac Mild DID NOT Verified 05/22/23 09:22 HELP WITH PAIN RELIEF Consultations 05/22/23 10:34 ED Decision to Admit Stat Ordered Studies 05/22/23 07:33 CT angio chest PE protocol Stat Hospital Course (1) H/O cervical spine surgery: (2) Atypical chest pain: (3) Postoperative pain: (4) Migraine: (5) Anxiety: (6) Depression: (7) Fibromyalgia: (8) GERD (gastroesophageal reflux disease): Plan 42yo F with a PMH of anxiety, depression, fibromyalgia, history of PE, GERD, recent cervical spine surgery at [facility] on 05/20/23 and discharged on 05/21/23 who presents with neck pain radiating to chest and inability to take a deep breath H/o cervical spine surgery Post-operative pain Atypical chest pain Underwent C5-C6 ACDA at [facility] on 05/20/[address] Olson and was discharged home on 05/21/23 on naproxen, oxycodone PRN and flexeril BID PRN Woke up to painful muscle spasms overnight Pain seems to be MSK related, referred from neck following muscle spams and is reproducible with palpation of chest wall Chest CTA did not show PE but noted small left and trace right pleural effusion with dependent atelectasis, subcut and deep tiss emphysema reported as post op changes. No post op fluid collections. No pneumothorax Trops was negative There is no signs of infection at surgical site WBC on admission was 13.42 likely reactive process. 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 Olson's service [place] [facility] [place] who feels this can be treated conservatively at [facility] at this time Recommends scheduled NSAIDs and anti-spasmodic Was managed with IV toradol to 30mg q6h, scheduled flexeril, tylenol and prn oxycodone Pain is improved today Discharged on ibuprofen prn. Stop naproxen Continue flexeril, oxycodone prn and tylenol Received bowel regimen for constipation Has a small bowel movement yesterday Hb is stable in 10s H/o migraine headaches Sumatriptan PRN Anxiety Depression Fibromyalgia Continue bupropion, duloxetine GERD Continue PPI Total Time Total Time Spent Total Time Spent (In Minutes): 40 Total Time Includes: Examination of the Patient, Discharge Planning and Medication Reconciliation Discharge Plan Discharge Items Patient Disposition: Home - Self-Care Reason For Visit: POST OP SURGICAL PAIN, Chest pain Discharge Diagnosis: Surgical site pain Chest pain Condition on Discharge: Good Activity: Resume your previous activity Non-emergency contact: Primary Care Provider Call non-emergency contact if: you have any medication questions and your symptoms worsen Follow-up/Referrals: Tiny Brownlee DO [Primary Care Provider] - (Date & Time 05/31/2023 1:20 PM Provider Zelda Hernandez DO Department Family Practice [facility] ) Diet: Regular Addtl Attending Provider Instructions: Ms Vo You came to the hospital due to worsened surgical site/neck pain radiating into your chest and back. You were evaluated and started on pain medications. You are feeling better and being discharged home Please stop taking naproxen for now as this was changed to ibuprofen as needed for pain. Please take tylenol scheduled over the next 24 hours and then change to as needed for mild pain Please use oxycodone as needed for severe pain, not controlled by tylenol or ibuprofen. Please continue the flexeril as needed for muscle spasms Take miralax for your constipation. You can stop it once constipation is fully resolved Please ensure follow up with your Primary Doctor and Surgeon. It was a pleasure taking care of you. Pending Studies at Discharge: No Stand-Alone Forms: My [facility], Smoking Cessation Medications and DC Order Prescriptions: New acetaminophen [Tylenol Extra Strength] 500 mg Tablet 1,000 mg PO Q8H Qty: 60 0RF polyethylene glycol 3350 [Miralax] 17 gram Powder In Packet 17 g PO DAILY Qty: 14 0RF ibuprofen 400 mg tablet 400 mg PO Q6H PRN (Reason: pain) Qty: 30 0RF Continued promethazine 25 mg Tablet 25 mg PO Q6H PRN (Reason: Nausea And Vomiting) loratadine 10 mg Tablet 10 mg PO QAM omeprazole 40 mg capsule,delayed release(DR/EC) 40 mg PO QAM hydroxyzine HCl 25 mg tablet 25 mg PO Q6H PRN (Reason: Anxiety) Medical Marijuana 1 dose PO HS Patient Comments: SL/ORAL INGEST ONLY duloxetine 60 mg capsule,delayed release(DR/EC) See Rx Instructions .ROUTE .COMPLEX Rx Instructions: Take 60mg w/30mg capsule to equal 90mg every morning oxycodone 5 mg tablet 5 mg PO Q6H PRN (Reason: pain) Qty: 10 0RF valacyclovir 1 gram tablet 2,000 mg PO Q12H PRN (Reason: flare) sumatriptan succinate 50 mg tablet 100 mg PO UD PRN (Reason: migraines) Rx Instructions: Take 2 tablets at onset of migraine and one tablet every 2 hours as needed, not more than 5 tablets in 24 hours duloxetine 30 mg capsule,delayed release(DR/EC) See Rx Instructions .ROUTE .COMPLEX Rx Instructions: Take 30mg w/60mg capsule to equal 90mg every morning metoclopramide HCl 5 mg tablet 5 mg PO TIDM PRN (Reason: Dyspepsia) ascorbic acid (vitamin C) 500 mg Tablet 500 mg PO DAILY celecoxib 100 mg capsule 100 mg PO DAILY PRN (Reason: Pain) bupropion HCl 300 mg tablet extended release 24 hr 300 mg PO DAILY acidophilus-pectin, citrus 100 million cell-10 mg Capsule 1 cap PO DAILY cyclobenzaprine 10 mg tablet 10 mg PO BID PRN (Reason: muscle spasm) sucralfate 100 mg/mL suspension 10 ml PO TIDM PRN (Reason: Dyspepsia) docusate sodium 100 mg Tablet 100 mg PO BID PRN (Reason: Constipation) Qty: 20 0RF sennosides [Senokot] 8.6 mg tablet 8.6 mg PO HS PRN (Reason: Constipation) Discontinued naproxen 250 mg tablet 250 mg PO BID Discharge Orders: Discharge Order (Routine); Ordered 05/25/23 Ordered By: Jessica Price Admission Data Admit Date/Time: 05/24/23 14:49 Attending Provider: Jessica Price I. Admit Provider: Jessica Price I. Primary Care Provider: Tiny Brownlee Other Providers: Jessica Price I. Other Interventions: Discharge Summary Assessment (RN) Last Done: 05/25/23 10:33
== END 2023-05-25 13:20 | disposition home or self-care (01) | DRG 948 ==
LOC: 2W 07:09 → ED 07:09 → 2W 12:00

== ENCOUNTER 2023-11-05 07:53 | Observation (INO) ==
--- NOTE | 2023-11-02 08:25 | Anesthesiology Consultation ---
Date of Service November 02, 2023 Assessment & Plan (1) Encounter for pre-operative examination: - Case discussed with Dr. Mota including EKG tracing and he advised patient is acceptable to proceed. - S PCP pre-operative appointment 11/02/23: "...pre-op exam (Spinal stimulator scheduled 11/06/23-had pre op testing done at [facility] (EKG, cxr, labs)...Here for preop requested by Dr Yaniv Beckham for spinal stimulator placement @[facility] under [place] on 11/05/23. Pt has hx spinal fusion, ongoing sciatica & LBP. Per pt, trial stimulator was helpful for all the above. Excellent MET tolerance. Had preop labs and CXR at [facility] this AM--reviewed & WNL...low general risk for planned surgery..." - no blood products. Marked on OR notification. Chart Review Chart Review: Acceptable Risk for Surgery and Patient seen in Pre Admission Testing Teaching & Discussion Pre-Anesthesia Teaching/Discussion Notes: Instructed NPO after midnight before surgery, except medications with 15 cc of water. Medication instructions provided according to the PAT guidelines. History Surgery Operation Date: 11/05/23 09:15 Proposed Procedures p Spinal Cord Stimulator Placement - Yaniv Beckham, DO Height/Weight Height: 5 ft 6 in Weight: 102.7 kg Allergies Allergy/AdvReac Type Severity Reaction Status Date / Time tramadol AdvReac Mild "Did not Verified 11/01/23 16:30 help" with pain Medications Home Medications Medication Instructions Recorded Confirmed Last Taken hydroxyzine HCl 25 mg tablet 25 mg PO Q6H PRN Anxiety 04/25/20 11/01/23 06/28/21 omeprazole 40 mg capsule,delayed 40 mg PO QAM 04/25/20 11/01/23 05/21/23 release loratadine 10 mg tablet 10 mg PO QAM 12/03/20 11/01/23 05/21/23 promethazine 25 mg tablet 25 mg PO Q6H PRN Nausea And 12/03/20 11/01/23 Unknown Vomiting Medical Marijuana 1 dose PO HS sleep 05/16/21 11/01/23 05/21/23 sennosides 8.6 mg tablet (Senokot) 8.6 mg PO HS PRN Constipation 09/21/21 11/01/23 Unknown duloxetine 60 mg capsule,delayed 60 mg PO QAM 02/18/22 11/01/23 05/21/23 release acidophilus 100 million 1 cap PO QAM 05/22/23 11/01/23 Unknown cell-pectin, citrus 10 mg capsule ascorbic acid (vitamin C) 500 mg 500 mg PO QAM 05/22/23 11/01/23 Unknown tablet bupropion HCl 300 mg 24 hr tablet, 300 mg PO QAM 05/22/23 11/01/23 Unknown extended release celecoxib 100 mg capsule 100 mg PO DAILY PRN Pain 05/22/23 11/01/23 Unknown cyclobenzaprine 10 mg tablet 10 mg PO BID PRN muscle spasm 05/22/23 11/01/23 Unknown duloxetine 30 mg capsule,delayed 30 mg PO QAM 05/22/23 11/01/23 05/21/23 release metoclopramide HCl 5 mg tablet 5 mg PO TID PRN Dyspepsia 05/22/23 11/01/23 Unknown sucralfate 100 mg/mL oral 10 ml PO TID PRN Dyspepsia 05/22/23 11/01/23 Unknown suspension sumatriptan succinate 50 mg tablet 100 mg PO UD PRN migraines 05/22/23 11/01/23 Unknown valacyclovir 1 gram tablet 2,000 mg PO Q12H PRN flare 05/22/23 11/01/23 Unknown acetaminophen 500 mg tablet 1,000 mg (2 x 500 mg) PO Q8H #60 05/25/23 11/01/23 Unknown (Tylenol Extra Strength) tabs docusate sodium 100 mg tablet 100 mg PO BID PRN Constipation #20 05/25/23 11/01/23 Unknown tabs ibuprofen 400 mg tablet 400 mg PO Q6H PRN pain #30 tabs 05/25/23 11/01/23 Unknown polyethylene glycol 3350 17 gram 17 g PO DAILY #14 ea 05/25/23 11/01/23 Unknown oral powder packet (Miralax) naproxen 500 mg tablet 500 mg PO BID PRN pain #20 tabs 08/26/23 11/01/23 Unknown Past Medical History Medical History (Updated 11/02/23 @ 13:03 by Sierra Caicedo PA-C) Refusal of blood transfusions as patient is Mandaen Hx of chest pain 05/2023, seen in mo er, ~1 week post-op from cervical spine sx.; no cardiac findings, "thought to be from post-op pain, no signs of pulmonary embolism either" Spinal stenosis Arthritis History of skin cancer removed Anxiety and depression Pulmonary embolism 2015- ? r/t control, was on blood thinner for short period of time GERD (gastroesophageal reflux disease) controlled, stable per pt Degenerative disc disease Lumbar Fibromyalgia Migraine Patient denies h/o stroke, seizures, heart attack, heart failure, DM, HTN, or blood transfusions. Exercise / Class Metabolic Activity II 4-5 Yardwork/Stairs/Walk up hill (denies chest discomfort or shortness of breath with 1 FOS) Past Family History Family History Grandfather Family history of diabetes mellitus Grandmother Family history of diabetes mellitus Grandmother Family hx of colon cancer Grandmother (Maternal) Diabetes Colorectal cancer Father Heart disease Mother Hypertension Uncle Stroke Other Cancer Gall bladder disease Lung disease No family history of adverse response to anesthesia Past Surgical History Surgical History Hx of cervical spine surgery ~05/2023 History of sinus surgery Closure of Large Oral Sinus Opening, Left Sinus [place] (2020, [place]) H/O exploratory laparotomy History of tooth extraction History of esophagogastroduodenoscopy (EGD) History of colonoscopy History of knee surgery Left knee x2 (open + arthroscopic, 1997) Hx of shoulder surgery Right History of cholecystectomy S/P lumbar spinal fusion 2016, 2018 S/P laparoscopic hysterectomy 2016 (ovaries remain) Past Anesthesia History No Hx of Anesthesia Complications and No Family Hx of Anesthesia Complications History of PONV No Hx of PONV and No Hx of Motion Sickness Social History Smoking Status: Never smoker Do You Dip or Chew Tobacco: No Hx Alcohol Use: Yes Alcohol type: wine alcohol intake frequency: holidays/special occasions only Hx Substance Use: Yes (medical card) substance use type: marijuana Substance Use Type Other:: liquid tincture under tongue Last Used Substance Other:: uses nightly to help with sleep-advised Review of Systems Snoring, denies witnessed apneas. Patient denies chest pain, shortness of breath, dyspnea on exertion, fever, chills, cough, wheezing, or palpitations. Physical Exam Vital Signs Vitals BP 132/82 P 71 TEMP 98.5 SP02 98% on RA RESP 18 Physical Patient resting comfortably in chair in no acute distress, alert and oriented, responding appropriately throughout visit Full cervical extension range of motion without pain TMD 3.5 finger breadths Mallampati Score 2 Dentition: several crowns; denies chipped or loose teeth, caps, implants or bridges Lungs: normal respiratory effort. Good air movement, clear throughout to auscultation, no adventitious breath sounds Cardiac: regular rate and rhythm, no murmurs noted Carotid arteries: negative bruit bilat Lab Results Anesthesia Preop Results Results Anesthesia Widget: WBC 7.01 K/ul (4.8-10.8) 11/02/23 Hgb 13.2 g/dl (12.0-16.0) 11/02/23 Hct 40.0 % (37.0-47.0) 11/02/23 Plt 265 K/uL (130-400) 11/02/23 Na 136 mmol/L (136-145) 11/02/23 K 4.0 mmol/L (3.5-5.1) 11/02/23 Cl 103 mmol/L (98-107) 11/02/23 CO2 28 mmol/L (21-32) 11/02/23 BUN 15 mg/dl (6-23) 11/02/23 Creat 0.99 mg/dl (0.6-1.2) 11/02/23 Glucose Level 74 mg/dl (70-99(Fasting)) 11/02/23 PT 10.6 Seconds (9.0-12.0) 11/02/23 PTT 26 Seconds (21-31) 11/02/23 INR 1.0 (0.9-1.1) 11/02/23 Urine Color Yellow 11/02/23 Urine Appearance Clear (Clear) 11/02/23 Urine pH 5.5 (4.5-7.5) 11/02/23 Urine Specific [place] 1.021 (1.000-1.030) 11/02/23 Urine Protein Negative (Negative) 11/02/23 Urine Glucose (UA) Negative (Negative) 11/02/23 Urine Ketones Negative (Negative) 11/02/23 Urine Blood Negative (Negative) 11/02/23 Urine Nitrite Negative (Negative) 11/02/23 Urine Bilirubin Negative (Negative) 11/02/23 Urine Urobilinogen Negative (Negative) 11/02/23 Urine Leukocyte Esterase Negative (Negative) 11/02/23 Testing Laboratory Results Type and screen cancelled per my discussion with Dano in blood bank as patient confirmed at PAT appointment she does not want any blood products. Surgeon's office notified. Chest X-Ray Date: 11/02/23 No acute process. Cervical Spine Date: 02/05/23 MRI Cervical spondylosis, most notable for mild spinal canal stenosis and mild bilateral neural foraminal narrowing at C5-C6. Other Testing Abdomen pelvis CT 08/25/23 No acute findings in the abdomen or pelvis. Chest CTA 05/22/23 1. No pulmonary emboli identified. 2. Small left and trace right pleural effusions with mild dependent bibasilar consolidation favoring atelectasis. 3. Subcutaneous and deep tissue emphysema within the right neck with inflammatory stranding tracking into the upper mediastinum, likely expected postoperative changes. Correlation with surgical history recommended. No postoperative fluid collection identified.
--- NOTE | 2023-11-02 11:12 | PAT Medication Instructions ---
Medication Instructions Date of Service November 02, 2023 Home Medications Medication Instructions Recorded acetaminophen 500 mg tablet 1,000 mg (2 x 500 mg) PO Q8H #60 05/25/23 (Tylenol Extra Strength) tabs docusate sodium 100 mg tablet 100 mg PO BID PRN Constipation #20 05/25/23 tabs ibuprofen 400 mg tablet 400 mg PO Q6H PRN pain #30 tabs 05/25/23 polyethylene glycol 3350 17 gram 17 g PO DAILY #14 ea 05/25/23 oral powder packet (Miralax) naproxen 500 mg tablet 500 mg PO BID PRN pain #20 tabs 08/26/23 hydroxyzine HCl 25 mg tablet 25 mg PO Q6H PRN omeprazole 40 mg capsule,delayed release 40 mg PO QAM loratadine 10 mg tablet 10 mg PO QAM promethazine 25 mg tablet 25 mg PO Q6H PRN Medical Marijuana 1 dose PO HS sennosides 8.6 mg tablet (Senokot) 8.6 mg PO HS PRN duloxetine 60 mg capsule,delayed release 60 mg PO QAM acidophilus 100 million cell-pectin, citrus 10 mg capsule 1 cap PO QAM ascorbic acid (vitamin C) 500 mg tablet 500 mg PO QAM bupropion HCl 300 mg 24 hr tablet, extended release 300 mg PO QAM celecoxib 100 mg capsule 100 mg PO DAILY PRN cyclobenzaprine 10 mg tablet 10 mg PO BID PRN duloxetine 30 mg capsule,delayed release 30 mg PO QAM metoclopramide HCl 5 mg tablet 5 mg PO TID PRN sucralfate 100 mg/mL oral suspension 10 ml PO TID PRN sumatriptan succinate 50 mg tablet 100 mg PO UD PRN valacyclovir 1 gram tablet 2,000 mg PO Q12H PRN acetaminophen 500 mg tablet (Tylenol Extra Strength) 1,000 mg (2 x 500 mg) PO Q8H docusate sodium 100 mg tablet 100 mg PO BID PRN ibuprofen 400 mg tablet 400 mg PO Q6H PRN polyethylene glycol 3350 17 gram oral powder packet (Miralax) 17 g PO DAILY naproxen 500 mg tablet 500 mg PO BID PRN Continue as directed sumatriptan succinate 50 mg tablet 100 mg PO UD PRN(if needed) ASK your surgeon for instructions celecoxib 100 mg capsule 100 mg PO DAILY PRN ibuprofen 400 mg tablet 400 mg PO Q6H PRN naproxen 500 mg tablet 500 mg PO BID PRN DO NOT take the morning of surgery loratadine 10 mg tablet 10 mg PO QAM acidophilus 100 million cell-pectin, citrus 10 mg capsule 1 cap PO QAM ascorbic acid (vitamin C) 500 mg tablet 500 mg PO QAM metoclopramide HCl 5 mg tablet 5 mg PO TID PRN sucralfate 100 mg/mL oral suspension 10 ml PO TID PRN docusate sodium 100 mg tablet 100 mg PO BID PRN polyethylene glycol 3350 17 gram oral powder packet (Miralax) 17 g PO DAILY Take morning of surgery With a small sip of water, OTHERWISE NOTHING TO EAT OR DRINK AFTER MIDNIGHT: hydroxyzine HCl 25 mg tablet 25 mg PO Q6H PRN(if needed) omeprazole 40 mg capsule,delayed release 40 mg PO QAM promethazine 25 mg tablet 25 mg PO Q6H PRN(if needed) duloxetine 60 mg capsule,delayed release 60 mg PO QAM bupropion HCl 300 mg 24 hr tablet, extended release 300 mg PO QAM cyclobenzaprine 10 mg tablet 10 mg PO BID PRN(if needed) duloxetine 30 mg capsule,delayed release 30 mg PO QAM valacyclovir 1 gram tablet 2,000 mg PO Q12H PRN(if needed) acetaminophen 500 mg tablet (Tylenol Extra Strength) 1,000 mg (2 x 500 mg) PO Q8H Take evening before surgery hydroxyzine HCl 25 mg tablet 25 mg PO Q6H PRN(if needed) promethazine 25 mg tablet 25 mg PO Q6H PRN(if needed) Medical Marijuana 1 dose PO HS sennosides 8.6 mg tablet (Senokot) 8.6 mg PO HS PRN(if needed) cyclobenzaprine 10 mg tablet 10 mg PO BID PRN(if needed) metoclopramide HCl 5 mg tablet 5 mg PO TID PRN(if needed) sucralfate 100 mg/mL oral suspension 10 ml PO TID PRN(if needed) valacyclovir 1 gram tablet 2,000 mg PO Q12H PRN(if needed) acetaminophen 500 mg tablet (Tylenol Extra Strength) 1,000 mg (2 x 500 mg) PO Q8H docusate sodium 100 mg tablet 100 mg PO BID PRN(if needed) Other Notes If you have any questions please call us at [phone] or [phone] or [phone] or [phone]
[~2023-11-05 07:53] MED LIST changes: -ACET-1311 PO; +ACETAMINOPHEN 500 MG TAB PO SCH; -BNT/10 PO; +CeleBREX 200 MG CAP PO SCH; -FERR1TAB62 PO; -FLNIN/; -FLX10 PO; -GABA-113 PO; +GABAPENTIN 900 MG DOSE PO SCH; -IBUP-1050 PO; -LORA0.5T12 PO; +LR 15ML/HR IV SCH; +LR 60ML/HR IV SCH; -OMEP40CA41 PO; -OSEL75CA12 PO; -PROM25TA16 PO; -PRZ/40 PO; -WLLSR150 PO; +ceFAZolin 2000MG 2,000 MG/15 ML SYR IV SCH
--- OUTSIDE RECORDS SUMMARY | 2023-11-05 08:13 | External Medical Summary | Summary of Care ---
Author Name Unknown Organization [facility] Address [address] [facility] [place] [address] Phone [phone] Care Team Providers Care Handle Sewer Name Role Phone TorrieTiny Marino BYRD Primary Care Provider [phone] Reason for Visit * Reason Onset Date Comments pre-op exam Spinal stimulato r scheduled 11/06/23-had pre op testing done at [facility] (EKG, cxr, labs) Medication Administration 11/02/2023 Flu an d/or Pneumo Inj Encounter Details Date Type Department Care Team (Late st Contact Info) Description 11/02/2023 2:40 PM EST Office Visit Family Practice [facility] [address] [facility] [place] [address] Anthony Louis MD [address] [facility] [place] [address] Preop general physical exam*; Recurrent major depressive disorder, in partial remission (HCC); HSV infection; Nausea; Current mild episode of major depressive disorder without prior episode (HCC); Need for prophylactic vaccination and inoculation against influenza Allergies No known active allergiesdocumented as of this encounter (statuses as of 11/02/2023) Medications Medication Sig Dispensed Refills Start Date End Date Status docusate sodium (COLACE) 100 MG Capsule Take 1 Capsule by mouth 2 times a day as needed for Constipation. 10 Cap 0 05/24/2018 Active Ascorbic Acid (VITAMIN C) 100 MG Tablet Take 5 Tablets by mouth in the morning. 0 01/08/2019 Active Loratadine 10 MG Oral Tablet (CLARITIN) Take 1 Tablet by mouth in the morning. 0 Active Acidophilus Lactobacillus Oral Capsule Take 1 Tablet by mouth in the morning. 0 04/30/2020 Active diltiazem 2% 2% AR GEL Administer 1 Application Dosing Unit into the rectum 2 times a day as needed (rectal pain). 60 mL 0 12/11/2020 Active Cyclobenzaprine HCl 10 MG Oral Tablet (Flexeril) TAKE ONE TABLET BY MOUTH TWICE DAILY NEEDED FOR MUSCLE SPASMS 20 Tablet 0 06/18/2022 Active Acetaminophen 325 MG Oral Tablet (Tylenol) Take 2 Tablets by mouth every 6 hours as needed for Pain, Mild. 60 Tablet 0 01/27/2023 Active Clotrimazole-Betam ethasone 1-0.05 % External Cream Apply to both feet twice daily. 45 g 2 08/06/2023 Active Terbinafine HCl 250 MG Oral Tablet Take 1 Tablet by mouth in the morning. 45 Tablet 1 09/10/2023 Active Omeprazole 40 MG Oral Capsule Delayed Release (PriLOSEC)Indicati ons:Abdominal pain, generalized Take 1 capsule by mouth twice daily 180 Capsule 1 09/30/2023 Active traMADol HCl 50 MG Oral Tablet (Ultram) Take 1 Tablet by mouth 2 times a day as needed for Pain, Moderate or Pain, Severe. 60 Tablet 0 10/06/2023 Active buPROPion HCl ER (XL) 300 MG Oral Tablet Extended Release 24 Hour (Wellbutrin XL)Indications:Rec urrent major depressive disorder, in partial remission (HCC) Take 1 Tablet by mouth in the morning. In the morning.. 90 Tablet 1 11/02/2023 Active DULoxetine HCl 60 MG Oral Capsule Delayed Release Particles (Cymbalta)Indicati ons:Recurrent major depressive disorder, in partial remission (HCC) TAKE 1 CAPSULE BY MOUTH ONCE DAILY IN THE MORNING (DO NOT CUT, CRUSH OR CHEW) 90 Capsule 1 11/02/2023 Active SUMAtriptan Succinate 50 MG Oral Tablet (Imitrex) TAKE 2 TABLETS BY MOUTH AT ONSET OF MIGRAINE AND 1 TABLET EVERY 2 HOURS NEEDED. DO NOT EXCEED MORE THAN 5 TABLETS IN 24 HOURS. 6 Tablet 5 11/02/2023 Active valACYclovir HCl 1 GM Oral Tablet (Valtrex)Indicatio ns:HSV infection TAKE 2 TABLETS BY MOUTH EVERY 12 HOURS FOR COLD SORES. 4 pills total per outbreak. 12 Tablet 5 11/02/2023 Active Celecoxib 100 MG Oral Capsule (CeleBREX) Take 1-2 capsules by mouth as needed for pain, use lowest dose necessary for pain relief. 60 Capsule 2 11/02/2023 Active Ondansetron HCl 4 MG Oral Tablet (Zofran)Indication s:Nausea Take 1 Tablet by mouth every 6 hours as needed for Nausea. 30 Tablet 0 11/02/2023 Active DULoxetine HCl 30 MG Oral Capsule Delayed Release Particles (Cymbalta)Indicati ons:Current mild episode of major depressive disorder without prior episode (HCC) TAKE 1 CAPSULE BY MOUTH IN THE MORNING ALONG WITH 60 MG CAPSULE FOR TOTAL DAILY DOSE OF 90 MG. DO NOT CUT, CRUSH OR CHEW 90 Capsule 1 11/02/2023 Active Ciclopirox 8 % External SolutionIndication s:Onychomycosis Apply over nail and surrounding skin. Apply daily over previous coat. After seven (7) days, may remove with alcohol and continue cycle. 6.6 mL 0 08/05/2022 3 Discontinu ed(Medicat ion List Clean Up) DULoxetine HCl 60 MG Oral Capsule Delayed Release Particles (Cymbalta)Indicati ons:Recurrent major depressive disorder, in partial remission (HCC) TAKE 1 CAPSULE BY MOUTH ONCE DAILY IN THE MORNING (DO NOT CUT, CRUSH OR CHEW) 90 Capsule 1 11/10/2022 3 Discontinu ed(Refill) Sucralfate 1 GM/10ML Oral Suspension (Carafate)Indicati ons:Abdominal pain, generalized Take 10 mL by mouth in the morning and 10 mL at noon and 10 mL in the evening and 10 mL before bedtime. 420 mL 0 11/27/2022 3 Discontinu ed(Medicat ion List Clean Up) Celecoxib 100 MG Oral Capsule (CeleBREX) Take 1-2 capsules by mouth as needed for pain, use lowest dose necessary for pain relief. 60 Capsule 2 01/08/2023 3 Discontinu ed(Refill) buPROPion HCl ER (XL) 300 MG Oral Tablet Extended Release 24 Hour (Wellbutrin XL)Indications:Rec urrent major depressive disorder, in partial remission (HCC) TAKE 1 TABLET BY MOUTH IN THE MORNING 90 Tablet 1 04/26/2023 3 Discontinu ed(Refill) DULoxetine HCl 30 MG Oral Capsule Delayed Release Particles (Cymbalta)Indicati ons:Current mild episode of major depressive disorder without prior episode (HCC) TAKE 1 CAPSULE BY MOUTH IN THE MORNING ALONG WITH 60 MG CAPSULE FOR TOTAL DAILY DOSE OF 90 MG. DO NOT CUT, CRUSH OR CHEW 90 Capsule 1 04/26/2023 3 Discontinu ed(Refill) oxyCODONE HCl 5 MG Oral Tablet (Oxy IR) Take 1 Tablet by mouth every 6 hours. 0 05/20/2023 3 Discontinu ed(Medicat ion List Clean Up) SUMAtriptan Succinate 50 MG Oral Tablet (Imitrex) TAKE 2 TABLETS BY MOUTH AT ONSET OF MIGRAINE AND 1 TABLET EVERY 2 HOURS NEEDED. DO NOT EXCEED MORE THAN 5 TABLETS IN 24 HOURS. 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 History of pulmonary embolism 02/04/2022 Overview: Related to control Gastroesophageal reflux disease without esophagi tis 12/03/2020 Fibromyalgia 12/03/2020 ANGELIQUE (generalized anxiety disorder) 12/03/2020 Current mild episode of kusum r depressive disorder without prior episode 01/05/2020 documented as of this encounter (statuses as of 11/02/2023) Resolved Problems Problem Noted Date Diagnosed Date Resolved Date Acute pancreatitis 02/08/2015 1 Pulmonary embolism 05/26/2013 8 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 management encounter 05/26/2013 07/03/2014 snf current use of ant icoagulant therapy 05/26/2013 08/19/2017 Overview: ICD-10 update of inactive term 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 Normal , first 10/25/200311/15 Lumbago 12/03/2020 Major depressive disorder Overview: ICD-10 update of inactive term documented as of this encounter (statuses as of 11/02/2023) Immunizations Name Administration Dates Next Due COVID-19 mRNA, LNP-s, No Pre serve, 2-Dose Series ([employer]) 03/27/2021,02/12/2021 Seasonal Influenza Virus Vac cine, Unspecified Formulation 08/05/2022,09/18/2021,09/10/2020,2018,08/19/2017,09/16/2016,11/02/2014,0 08/03/2013,09/01/2011,10/13/2006 Seasonal Influenza, PF, 6 M & above, IM , (FluLaval or Fluzone) 11/02/2023,08/05/2022,09/18/2021,2019,09/01/2019,08/19/2017 Seasonal Influenza, Quadriva lent, No Preserve, IM 09/19/2015 Seasonal Influenza, Split, I IV3, With Preserve, Inj 09/16/2016,11/02/2014,08/03/2013,2010 Seasonal Influenza, Trivalen t, Adjuvanted, 65+ yrs 08/27/2018 TDAP (age 10 and older)(Boostrix) 01/02/2020 TDAP (age 11 and older)(Adacel) 07/24/2011 documented as of this encounter Social History Tobacco Use Types Packs/Day Years Used Date Smoking Tobacco: Never Smokeless Tobacco: Never Tobacco Cessation:Counseling Given: Not Answered Alcohol Use Standard Drinks/Week Comments Yes 0 (1 standard drink = 0.6 oz pur e alcohol) socially PHQ-2 Answer Date Recorded PHQ Adult Total Score 24 08/05/2022 Hunger Vital Sign Answer Date Recorded Within the past 12 months, y ou worried that your food would run out before you got the money to buy more. Never true 11/20/19 23 Within the past 12 months, t he food you bought just didn't last and you didn't have money to get more. Never true 11/20/2022 Sex and Gender Information Value Date Recorded Sex Assigned at Female 04/13/2019 1:11 PM EDT Gender Identity Female 04/13/2019 1:11 PM EDT Sexual Orientation Straight 04/13/2019 1: 11 PM EDT Job Start Date Occupation Industry Not on file Not on file Not on file documented as of this encounter Last Filed Vital Signs Vital Sign Reading Time Taken Comments Blood Pressure 134/80 11/02/2023 2:57 PM EST Pulse 78 11/02/2023 2:57 PM EST Temperature 36.7 C (98 F) 11/02/2023 2:57 PM EST Respiratory Rate 18 11/02/2023 2:57 PM EST Oxygen Saturation 98% 11/02/2023 2:57 PM EST Inhaled Oxygen Concentration - - Weight 103 kg (227 lb 2 oz) 11/02/2023 2:[address] Height 167.6 cm (5' 6") 11/02/2023 2:57 PM EST Body Mass Index 36.66 11/02/2023 2:57 PM EST documented in this encounter Functional Status Functional Status Response Date of Assess ment Are you deaf or do you have serious difficulty h earing? No 02/07/2015 Are you blind or do you have serious difficulty seeing, even when wearing glasses? No 02/07/2015 Do you have serious difficul ty walking or climbing stairs? (5 years old or older) No 02/07/2015 Do you have difficulty dress ing or bathing? (5 years old or older) No 02/07/2015 Because of a physical, menta l, or emotional condition, do you have difficulty doing errands alone such as visiting a doctor s office or shopping? (15 years old or older) No 02/08/20 15 Cognitive Status Response Date of Assessm ent Because of a physical, menta l, or emotional condition, do you have serious difficulty concentrating, remembering, or making decisions? (5 years old or older) No 02/07/2015 documented as of this encounter Progress Notes * Vicki Daly LPN - 11/02/2023 3:21 PM EST PRE - ADMINISTRATION DOCUMENTATION Are you experiencing any cold symptoms or fever? No Have you had Guillain-Laneville Syndrome (an illness that causes paralysis) within the last 6 weeks? No Have you had the flu shot in the past? YES Have you ever had a reaction to the flu shot? No Vicki Daly LPN, 11/02/2023 3:21 PM Immunization Administration Documentation Time Out Procedure Performed: Yes Patient Identified (Ask Name/Date of ): Yes Does the patient have a fever greater than 101 degrees today? No Patient allergic to latex? No VFC Stock: No Immunization(s) verified: Yes, Immunization Name: Flu, VIS Sheet(s) given: Yes Verified Side and Site: Yes Verified Shot(s) with Parent(s)/Patient: Yes * Anthony Louis MD - 11/02/2023 3:13 PM EST SUBJECTIVE: Telma Vann is a 43 year old female here for pre-op exam (Spinal stimulator scheduled 11/06/23-had pre op testing done at [facility] (EKG, cxr, labs)) . Here for preop requested by Dr Yaniv Beckham for spinal stimulator placement @[facility] under [place] on 11/05/23. Pt has hx spinal fusion, ongoing sciatica & LBP. Per pt, trial stimulator was helpful for all the above Excellent MET tolerance. Had preop labs and CXR at [facility] this AM--reviewed & WNL. I don't have new EKG to review. ROS: Negative except above. Past Medical History: Diagnosis Date Back pain with history of spinal surgery Benign neoplasm of colon 12/16/2011 biopsies taken to check for microscopic colitis, hemorroids, normal biopsy, most likely symptoms related to irritable bowel syndrome Depressive disorder, not elsewhere classified 1998 Fibromyalgia 12/03/2020 Fistula ANGELIQUE (generalized anxiety disorder) 12/03/2020 Gastroesophageal reflux disease without esophagitis 12/03/2020 H/O degenerative disc disease Lumbago 2005 Migraine without aura Pulmonary embolism (HCC) 05/21/2013 right lung Spinal stenosis Past Surgical History: Procedure Laterality Date ANAL FISTULA SURG, TRANS/SUPRA/EXTRASPHINCT N/A 10/22/2022 TREATMENT OF ANAL FISTULA COMPLEX performed by Caroline Chadwick MD at [facility] ANORECTAL EXAM ,DIAG, REQUIRING ANESTHESIA N/A 10/22/2022 ANORECTAL EXAM UNDER ANESTHESIA performed by Caroline Chadwick MD at [facility] BREAST LESION,OTHER,EXCISION Right 06/27/2019 PATH-pending COLONOSCOPY W/ BIOPSY (RECTUM) 12/16/2011 biopsies taken to check for microscopic colitis, hemorroids, normal biopsy, most likely symptoms related to irritable bowel syndrome COLONOSCOPY, DIAGNOSTIC (RECTUM) 01/01/2021 normal, repeat 10 yrs / COLONOSCOPY FLEXIBLE PROXIMAL DIAGNOSTIC performed by Yun Stanley DO at ENDOSCOPY [facility] COLONOSCOPY, DIAGNOSTIC (RECTUM) 12/04/2022 normal / COLONOSCOPY FLEXIBLE PROXIMAL DIAGNOSTIC performed by Marlen Desai MD at [facility]COPY [facility] DENTAL SURGERY PROCEDURE NEC Dental Surgery Procedure EGD, FLEXIBLE, DIAGNOSTIC 09/20/2013 UPPER GI ENDOSCOPY DIAGNOSTIC performed by Alessandro Cortez MD at ENDOSCOPY [facility] EGD, FLEXIBLE, DIAGNOSTIC 02/07/2015 mild inflammation, pancreatic stent removed/[facility] EGD, FLEXIBLE, DIAGNOSTIC 02/14/2015 ESOPHAGOGASTRODUODENOSCOPY (EGD), FLEXIBLE, TRANSORAL, DIAGNOSTIC performed by Tavares Mooney MD at [facility]OSCOPY [facility] EGD, FLEXIBLE, DIAGNOSTIC 01/02/2016 mild gastritis/ESOPHAGOGASTRODUODENOSCOPY (EGD), FLEXIBLE, TRANSORAL, DIAGNOSTIC performed by Yun Stanley DO at END[facility]COPY [facility] EGD, FLEXIBLE, DIAGNOSTIC 11/19/2016 mild inflammation on bx/ESOPHAGOGASTRODUODENOSCOPY (EGD), FLEXIBLE, TRANSORAL, DIAGNOSTIC performedby Yun Stanley DO at ENDOSCOPY [facility] EGD, FLEXIBLE, DIAGNOSTIC 01/15/2020 mid gastric irritation on bx / [facility] EGD, FLEXIBLE, DIAGNOSTIC 12/04/2022 normal bx / ESOPHAGOGASTRODUODENOSCOPY (EGD), FLEXIBLE, TRANSORAL, DIAGNOSTIC performed by Marlen Desai MD at [facility]COPY [facility] EGD, W/ENDOSCOPIC US 12/20/2013 ESOPHAGOGASTRODUODENOSCOPY (EGD), FLEXIBLE, TRANSORAL, ENDOSCOPIC ULTRASOUND performed by Dilip Elizabeth MD at OR [facility] ELBOW TENOTOMY W/RE-ATTACH W/ RADHA, OPEN Left 09/05/2021 TENOTOMY ELBOW TENDON REPAIR performed by Mario Desir DO at OR [facility] ERCP, DIAGNOSTIC, SPECIMEN COLLECTION 01/28/2015 Biliary papillary stenosis/[facility] EVAL NEUROSTIM PULSE GEN, W/ REPROGRAM Bilateral 09/09/2023 NEUROSTIMULATOR PULSE GENERATOR/ TRANSMITTER, WITH INTRAOPERATIVE OR SUBSEQUENT PROGRAMMING performed by Jace Puente DO at OR [facility] IMPLANT EPIDURAL NEUROELECTRODES Bilateral 09/09/2023 PERCUTANEOUS IMPLANTATION NEUROSTIMULATOR EPIDURAL performed by Jace Puente DO at OR [facility] INJECT DX/THER SUBSTANCE INTERLAMINAR LUMBAR/SACRAL W IMAGE GUIDE 03/01/2023 INJECTION SPINE LUMBAR OR SACRAL performed by Jace Puente DO at OR [facility] KNEE ARTHROSCOPY, DIAGNOSTIC left knee LAP;W/HYSTERECTOMY LAPAROSCOPY DIAGNOSTIC N/A 01/27/2023 LAPAROSCOPY DIAGNOSTIC performed by Tosin Durán MD at [facility] LAPAROSCOPY; CHOLECYSTECTOMY 01/15/2015 01/15/2015 laparoscopic cholecystectomy [facility] 01/08/15 LAPAROSCOPY;RMV ADNEXAL STRUCT Bilateral 01/27/2023 LAPAROSCOPIC OOPHORECTOMY AND OR SALPINGECTOMY performed by Tosin Durán MD at [facility] LUMBAR / SACRAL EPIDURAL, SINGLE LEVEL 11/19/2022 INJECTION TRANSFORAMINAL EPIDURAL LUMBAR OR SACRAL performed by Jace Puente DO at OR [facility] MISCELLANEOUS ORDER (HS ONLY) 09/28/2016 Spine surgery done at [facility] TOTAL ABD HYSTERECTOMY W/WO REMOVAL OF TUBE(S) 2014 [facility] [employer], still has ovaries Social History Socioeconomic History Marital status: Spouse name: Not on file Number of children: Not on file Years of education: Not on file Highest education level: Not on file Occupational History Not on file Tobacco Use Smoking status: Never Smokeless tobacco: Never Vaping Use Vaping Use: Never used Substance and Sexual Activity Alcohol use: Yes Comment: socially Drug use: Yes Types: Marijuana Comment: Medical marijuana Sexual activity: Yes Partners: Male control/protection: Surgical Other Topics Concern Service Not Asked Blood Transfusions No Caffeine Concern Not Asked Occupational Exposure Not Asked Hobby Hazards Not Asked Sleep Concern Not Asked Stress Concern Not Asked Weight Concern Not Asked Special Diet Yes Comment: milk + 1/day Back Care Not Asked Exercise Yes Comment: occ Bike Helmet Not Asked Seat Belt Not Asked Self-Exams Yes 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 [employer] Social Determinants of Health Financial Resource Strain: Not on file Food Insecurity: No Food Insecurity (11/20/2022) Hunger Vital Sign Worried About Running Out of Food in the Last Year: Never true Ran Out of Food in the Last Year: Never true Transportation Needs: Not on file Physical Activity: Not on file Stress: Not on file Social Connections: Not on file Intimate Partner Violence: Not on file Housing Stability: Not on file Family History Problem Relation Age of Onset Thyroid Disorder Mother Urolithiasis Mother Hypertension Mother Depression Mother Anxiety Disorder Mother Depression Brother Anxiety Disorder Brother Alcohol and Other Disorders Associated Brother Alcohol and Other Disorders Associated Brother Cancer Grandmother (Maternal) Diabetes Grandmother (Maternal) Colon cancer Grandmother (Maternal) Lung cancer Grandmother (Paternal) Prostate cancer Grandfather (Paternal) Cancer Cousin (Maternal) ovarian cancer Current Outpatient Medications Medication Sig Dispense Refill docusate sodium (COLACE) 100 MG Capsule Take 1 Capsule by mouth 2 times a day as needed for Constipation. 10 Cap Ascorbic Acid (VITAMIN C) 100 MG Tablet Take 5 Tablets by mouth in the morning. Loratadine 10 MG Oral Tablet (CLARITIN) Take 1 Tablet by mouth in the morning. Acidophilus Lactobacillus Oral Capsule Take 1 Tablet by mouth in the morning. diltiazem 2% 2% AR GEL Administer 1 Application Dosing Unit into the rectum 2 times a day as needed(rectal pain). 60 mL 0 Cyclobenzaprine HCl 10 MG Oral Tablet (Flexeril) TAKE ONE TABLET BY MOUTH TWICE DAILY NEEDED FORMUSCLE SPASMS 20 Tablet 0 Acetaminophen 325 MG Oral Tablet (Tylenol) Take 2 Tablets by mouth every 6 hours as needed for Pain, Mild. 60 Tablet 0 Clotrimazole-Betamethasone 1-0.05 % External Cream Apply to both feet twice daily. 45 g 2 Terbinafine HCl 250 MG Oral Tablet Take 1 Tablet by mouth in the morning. 45 Tablet 1 Omeprazole 40 MG Oral Capsule Delayed Release (PriLOSEC) Take 1 capsule by mouth twice daily 180 Capsule 1 traMADol HCl 50 MG Oral Tablet (Ultram) Take 1 Tablet by mouth 2 times a day as needed for Pain, Moderate or Pain, Severe. 60 Tablet 0 buPROPion HCl ER (XL) 300 MG Oral Tablet Extended Release 24 Hour (Wellbutrin XL) Take 1 Tablet by mouth in the morning. In the morning.. 90 Tablet 1 DULoxetine HCl 60 MG Oral Capsule Delayed Release Particles (Cymbalta) TAKE 1 CAPSULE BY MOUTH ONCEDAILY IN THE MORNING (DO NOT CUT, CRUSH OR CHEW) 90 Capsule 1 SUMAtriptan Succinate 50 MG Oral Tablet (Imitrex) TAKE 2 TABLETS BY MOUTH AT ONSET OF MIGRAINE AND 1 TABLET EVERY 2 HOURS NEEDED. DO NOT EXCEED MORE THAN 5 TABLETS IN 24 HOURS. 6 Tablet 5 valACYclovir HCl 1 GM Oral Tablet (Valtrex) TAKE 2 TABLETS BY MOUTH EVERY 12 HOURS FOR COLD SORES. 4 pills total per outbreak. 12 Tablet 5 Celecoxib 100 MG Oral Capsule (CeleBREX) Take 1-2 capsules by mouth as needed for pain, use lowest dose necessary for pain relief. 60 Capsule 2 Ondansetron HCl 4 MG Oral Tablet (Zofran) Take 1 Tablet by mouth every 6 hours as needed for Nausea. 30 Tablet 0 DULoxetine HCl 30 MG Oral Capsule Delayed Release Particles (Cymbalta) TAKE 1 CAPSULE BY MOUTH IN THE MORNING ALONG WITH 60 MG CAPSULE FOR TOTAL DAILY DOSE OF 90 MG. DO NOT CUT, CRUSH OR CHEW 90 Capsule 1 No current facility-administered medications for this visit. Physical: BP 134/80 | Pulse 78 | Temp 36.7 C (98 F) (Tympanic) | Resp 18 | Ht 1.676 m (5' 6") | Wt 103 kg(227 lb 2 oz) | LMP 12/20/2015 (Exact Date) | SpO2 98% | BMI 36.66 kg/m | BSA 2.19 m General-No apparent Distress Head, Eyes, Ears, Nose, Throat--Normocephalic, atraumatic Neck-Supple Lymph-no lymphadenopathy Lungs-Clear to Auscultation bilaterally Cardiovascular--Regular rate & Rhythm, +s1, s2, no murmur Abdomen-soft, nontender, nondistended + bowel sounds Extremities--no edema Neuro-alert & oriented x3 (Z01.818) Preop general physical exam (primary encounter diagnosis) Plan: low general risk for planned surgery. (F33.41) Recurrent major depressive disorder, in partial remission (HCC) Plan: buPROPion HCl ER (XL) 300 MG Oral Tablet Extended Release 24 Hour (Wellbutrin XL), DULoxetine HCl 60 MG Oral Capsule Delayed Release Particles (Cymbalta) renewed (B00.9) HSV infection Plan: valACYclovir HCl 1 GM Oral Tablet (Valtrex) Renewed for oral HSV prn (R11.0) Nausea Plan: Ondansetron HCl 4 MG Oral Tablet (Zofran) renewed (F32.0) Current mild episode of major depressive disorder without prior episode (HCC) Plan: DULoxetine HCl 30 MG Oral Capsule Delayed Release Particles (Cymbalta) Renewed Cc: Tiny Torres Dr, PCP (This note was completed using the dictation program Fluency Direct. As such, there may be misspellings, word substitutions, or other variations that should not change the essence of the clinical content of this encounter note.If there is need for further clarification, please direct questions to the provider listed above.) Anthony Louis MD documented in this encounter Nursing Notes * Vicki Daly LPN - 11/02/2023 2:57 PM EST The patient has been properly identified by confirmation of name and date of . Chief Complaint Patient presents with pre-op exam Spinal stimulator scheduled 11/06/23-had pre op testing done at [facility]. documented in this encounter Miscellaneous Notes * Addendum Note - Vicki Daly LPN - 11/02/2023 3:21 PM ESTAddended by: VICKI DALY on: 11/02/2023 03:21 PM Modules accepted: Orders documented in this encounter Plan of Treatment Upcoming Encounters Date Type Department Care Team (Late st Contact Info) Description 12/02/2023 3:00 PM EST Office Visit Interventional Pain Center, [facility] [address] [facility] [place] [address] Jace Puente DO [address] [place] [phone] 12/10/2023 3:40 PM EST Office Visit Podiatry [facility] [address] [place] [address] Pattie Barrera, DPM [address] [facility] [place] [id number] Scheduled Procedures Name Priority Associated Diagnoses Date/Ti me COLONOSCOPY FLEXIBLE PROXIMAL DIAGNOSTIC Recall Screen for colon cancer Health Maintenance Due Date Last Done Comments Hepatitis B (1 of 3 - 3-dose series) 1978 Hepatitis C Screening 1996 Depression, Most Recent Score >= 10 (will fire each visit until score < 10) 08/06/2022 08/05/2022 Lipid Panel 04/14/2023 04/14/2018, 02/25/2016 COVID-19 Vaccine ( season) 2023 03/27/2021, 02/12/2021 Mammogram 08/10/2023 08/10/2022, 07/17, 06/20/2019, Additional history exists Cologuard 2023 Fecal Occult Blood Test 2023 Sigmoidoscopy 2023 Diabetes Screening 01/27/2026 01/27/2023, 0 11/30/2022, 10/12/2022, Additional history exists DTaP,Tdap,and Td Vaccines (3 - Td or Tdap) 01/02/2030 01/02/2020, 07/24/2011 COLONOSCOPY EVERY 10 YEARS,AGES 18-50 12/04/2032 12/04/2022, 12/04/2022, 01/01/2021, Additional history exists Colonoscopy 12/04/2032 12/04/2022, 11/16, 01/01/2021, Additional history exists Colorectal Cancer Screening 12/04/2032 Influenza Vaccine (FLU shot) Completed , 08/05/2022, 08/05/2022, Additional history exists GARDASIL-HPV IMMUNIZATION SERIES Aged Out No longer eligible based on patient's age to complete this topic MENINGOCOCCAL (MENACTRA/MENVEO) Aged Out No longer eligible based on patient's age to complete this topic Pneumococcal Vaccine: Pediatrics (0 to 5 Years) and At-Risk Patients (6 to 64 Years) Aged Out No longer eligible based on patient's age to complete this topic documented as of this encounter Medical Devices Implanted Type Area Fire Observer Device Identifier Shelf Expiration Date Model / Serial / Lot Fibertak Dx Suture [place] With 1.33 Mm Suturetape Implanted:Qty: 2 on 09/05/2021 by Mario Desir, at OR [facility] Left: Elbow 05/14/2026 [id number] / / [id number] Description:with 1.3 mm Fibe rWire SutureTape and [place] Lead Kit Trial [id number] 50cm - [id number] - [id number] Implanted:Qty: 1 on 09/09/2023 by Jace Puente, at OR [facility] Left: Back New Relic : PAIN MGMT 06/13/2025 [id number] / [id number] / documented as of this encounter Visit Diagnoses Diagnosis Preop general physical exam- Primary Other specified pre-operative examination Recurrent major depressive disorder, in partial remission (HCC) HSV infection Herpes simplex without mention of complication Nausea Nausea alone Current mild episode of major depressive disorder without prior episode (HCC) Need for prophylactic vaccination and inoculation against influenza documented in this encounter Advance Directives Latest Code Status on File Code Status Date Activated Date Inactivated Comments Full Code 01/27/2023 2:30 PM 01/27/2023 9:18 PM This order reflects the patients wishes and were consensually agreed upon. Question Answer Comments Discussion of Advance Directives occurred with: Not Discussed due to patient's condition Code Status History Code Status Date Activated Date Inactivated Comments Full Code 10/22/2022 12:13 PM 10/22/2022 8:27 PM This order reflects the patients wishes and were consensually agreed upon. Question Answer Comments Discussion of Advance Directives occurred with: Patient Full Code 02/07/2015 9:30 PM 02/18/2015 3:17 AM This o rder reflects the patients wishes and were consensually agreed upon. Question Answer Comments Discussion of Advance Directives occurred with: Patient/Family Does the patient have a Living Will? No Does the patient have Health Care Power of Pastry Artist? No Care Teams Handle Sewer Relationship Specialty Start Date End Date Tiny Brownlee DO [address] [place] [address] PCP - General Family Medicine 12/30/21 documented as of this encounter
--- OUTSIDE RECORDS SUMMARY | 2023-11-05 08:13 | External Medical Summary | Summary of Care ---
Author Name Unknown Organization [facility] Address [address] [address] Phone [phone] Care Team Providers Care Sales And Catering Coordinator Name Role Phone TorrieTiny Marino BYRD Primary Care Provider [phone] Reason for Visit * Reason Onset Date Comments pre-op exam Spinal stimulato r scheduled 11/06/23-had pre op testing done at [facility] (EKG, cxr, labs) Medication Administration 11/02/2023 Flu an d/or Pneumo Inj Encounter Details Date Type Department Care Team (Late st Contact Info) Description 11/02/2023 2:40 PM EST Office Visit Family Practice [facility] [address] [place] [address] Anthony Louis MD [address] [facility] [place] [address] Preop general physical exam*; Recurrent major depressive [...] morning. 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 No Have you had Guillain-[place] Syndrome (an illness that causes paralysis) within [...] scheduled 11/06/23-had pre op testing done at [facility] (EKG, cxr, labs)) . Here for preop requested by Dr Yaniv Beckham for spinal stimulator placement @[facility] under [place] on 11/05/23. Pt has hx spinal fusion, ongoing sciatica & LBP. Per pt, trial stimulator was helpful for all the above Excellent MET tolerance. Had preop labs and CXR at [facility] this AM--reviewed & WNL. I don't have [...] performed by Caroline Chadwick MD at OR [facility] ANORECTAL EXAM ,DIAG, REQUIRING ANESTHESIA N/A 10/22/2022 ANORECTAL EXAM UNDER ANESTHESIA performed by Caroline Chadwick MD at OR [facility] BREAST LESION,OTHER,EXCISION Right 06/27/2019 PATH-pending COLONOSCOPY W/ BIOPSY (RECTUM) 12/16/2011 biopsies taken to check for microscopic colitis, hemorroids, normal biopsy, most likely symptoms related to irritable bowel syndrome COLONOSCOPY, DIAGNOSTIC (RECTUM) 01/01/2021 normal, repeat 10 yrs / COLONOSCOPY FLEXIBLE PROXIMAL DIAGNOSTIC performed by Yun Stanley DO at ENDOSCOPY [facility] COLONOSCOPY, DIAGNOSTIC (RECTUM) 12/04/2022 normal / COLONOSCOPY FLEXIBLE PROXIMAL DIAGNOSTIC performed by Marlen Desai MD at ENDOSCOPY [facility] DENTAL SURGERY PROCEDURE NEC Dental Surgery Procedure EGD, FLEXIBLE, DIAGNOSTIC 09/20/2013 UPPER GI ENDOSCOPY DIAGNOSTIC performed by Alessandro Cortez MD at ENDOSCOPY [facility] EGD, FLEXIBLE, DIAGNOSTIC 02/07/2015 mild inflammation, pancreatic stent removed/[facility] EGD, FLEXIBLE, DIAGNOSTIC 02/14/2015 ESOPHAGOGASTRODUODENOSCOPY (EGD), FLEXIBLE, TRANSORAL, DIAGNOSTIC performed by Tavares Mooney MD at ENDOSCOPY [facility] EGD, FLEXIBLE, DIAGNOSTIC 01/02/2016 mild gastritis/ESOPHAGOGASTRODUODENOSCOPY (EGD), FLEXIBLE, TRANSORAL, DIAGNOSTIC performed by Yun Stanley DO at ENDOSCOPY [facility] EGD, FLEXIBLE, DIAGNOSTIC 11/19/2016 mild inflammation on bx/ESOPHAGOGASTRODUODENOSCOPY (EGD), FLEXIBLE, TRANSORAL, DIAGNOSTIC performedby Yun Stanley DO at ENDOSCOPY [facility] EGD, FLEXIBLE, DIAGNOSTIC 01/15/2020 mid gastric irritation on bx / [facility] EGD, FLEXIBLE, DIAGNOSTIC 12/04/2022 normal bx / ESOPHAGOGASTRODUODENOSCOPY (EGD), FLEXIBLE, TRANSORAL, DIAGNOSTIC performed by Marlen Desai MD at ENDOSCOPY [facility] EGD, W/ENDOSCOPIC US 12/20/2013 ESOPHAGOGASTRODUODENOSCOPY (EGD), FLEXIBLE, TRANSORAL, ENDOSCOPIC ULTRASOUND performed by Dilip Elizabeth MD at OR [facility] ELBOW TENOTOMY W/RE-ATTACH W/ RADHA, OPEN Left 09/05/2021 TENOTOMY ELBOW TENDON REPAIR performed by Mario Desir DO at OR [facility] ERCP, DIAGNOSTIC, SPECIMEN COLLECTION 01/28/2015 Biliary papillary stenosis/[facility] EVAL NEUROSTIM PULSE GEN, W/ REPROGRAM Bilateral 09/09/2023 NEUROSTIMULATOR PULSE GENERATOR/ TRANSMITTER, WITH INTRAOPERATIVE OR SUBSEQUENT PROGRAMMING performed by Jace Puente DO at OR [facility] IMPLANT EPIDURAL NEUROELECTRODES Bilateral 09/09/2023 PERCUTANEOUS IMPLANTATION NEUROSTIMULATOR EPIDURAL performed by Jace Puente DO at OR [facility] INJECT DX/THER SUBSTANCE INTERLAMINAR LUMBAR/SACRAL W IMAGE GUIDE 03/01/2023 INJECTION SPINE LUMBAR OR SACRAL performed by Jace Puente DO at OR [facility] KNEE ARTHROSCOPY, DIAGNOSTIC left knee LAP;W/HYSTERECTOMY LAPAROSCOPY DIAGNOSTIC N/A 01/27/2023 LAPAROSCOPY DIAGNOSTIC performed by Tosin Durán MD at OR [facility] LAPAROSCOPY; CHOLECYSTECTOMY 01/15/2015 01/15/2015 laparoscopic cholecystectomy [facility] karimi 01/08/15 LAPAROSCOPY;RMV ADNEXAL STRUCT Bilateral 01/27/2023 LAPAROSCOPIC OOPHORECTOMY AND OR SALPINGECTOMY performed by Tosin Durán MD at OR [facility] LUMBAR / SACRAL EPIDURAL, SINGLE LEVEL 11/19/2022 INJECTION TRANSFORAMINAL EPIDURAL LUMBAR OR SACRAL performed by Jace Puente DO at OR [facility] MISCELLANEOUS ORDER (HS ONLY) 09/28/2016 Spine surgery done at [facility] TOTAL ABD HYSTERECTOMY W/WO REMOVAL OF TUBE(S) 2014 [facility], still has ovaries Social History Socioeconomic [...] 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 diltiazem 2% 2% [place] GEL Administer 1 Application Dosing Unit into [...] scheduled 11/06/23-had pre op testing done at [facility]. documented in this encounter Miscellaneous Notes * Addendum Note - Vicki Daly LPN - 11/02/2023 3:21 PM ESTAddended by: VICKI DALY on: 11/02/2023 03:21 PM Modules accepted: Orders documented in this encounter Plan of Treatment Upcoming Encounters Date Type Department Care Team (Late st Contact Info) Description 12/02/2023 3:00 PM EST Office Visit Interventional Pain Center, [facility] [address] [facility] [place] [address] Jace Puente DO [address] [facility] [place] [phone] Scheduled Procedures Name Priority Associated Diagnoses Date/Ti [...] this encounter Medical Devices Implanted Type Area Production Weigher Device Identifier Shelf Expiration Date Model / Serial / Lot Fibertak Dx Suture [place] With 1.33 Mm Suturetape Implanted:Qty: 2 on 09/05/2021 by Mario Desir DO at OR [facility] Left: Elbow 05/14/2026 [id number] / / [id number] Description:with 1.3 mm Fibe rWire SutureTape and [place] Lead Kit Trial [id number] 50cm - [id number] - [id number] Implanted:Qty: 1 on 09/09/2023 by Jace Puente DO at OR [facility] Left: Back Getyoo : PAIN MGMT 06/13/2025 [id number] / [id number] / documented as of this encounter Visit [...] the patient have Health Care Power of Passenger Barge Master? No Care Teams Sales And Catering Coordinator Relationship Specialty Start Date End Date Tiny Brownlee DO [address] [place] [address] PCP - General Family Medicine 12/30/21 documented as of this encounter
--- OUTSIDE RECORDS SUMMARY | 2023-11-05 08:13 | External Medical Summary | Summary of Care ---
Author Name Unknown Organization [facility] Address [address] [facility] [place] [address] Phone [phone] Care Team Providers Care Exercise Instruct Name Role Phone TorrieTiny Marino BYRD Primary Care Provider [phone] Reason for Visit * Reason Comments eRx-Medication Refill Encounter Details Date Type Department Care Team (Late st Contact Info) Description 11/02/2023 Refill Family Practice [facility] [address] [facility] [place] [address] Katina Goins MD [address] [facility] [place] [address] Nausea Allergies No known active allergiesdocumented as of this encounter (statuses as of 11/03/2023) Medications Medication Sig Dispensed Refills Start Date [...] morning. 0 04/30/2020 Active diltiazem 2% 2% [place] GEL Administer 1 Application Dosing Unit into [...] Pain, Mild. 60 Tablet 0 01/27/2023 Active Clotrimazole-Betame thasone 1-0.05 % External Cream Apply to both feet twice daily. 45 g 2 08/06/2023 Active Terbinafine HCl 250 MG Oral Tablet Take 1 Tablet by mouth in the morning. 45 Tablet 1 09/10/2023 Active Omeprazole 40 MG Oral Capsule Delayed Release (PriLOSEC)Indicatio ns:Abdominal pain, generalized Take 1 capsule by mouth twice daily 180 Capsule 1 09/30/2023 Active traMADol HCl 50 MG Oral Tablet (Ultram) Take 1 Tablet by mouth 2 times a day as needed for Pain, Moderate or Pain, Severe. 60 Tablet 0 10/06/2023 Active buPROPion HCl ER (XL) 300 MG Oral Tablet Extended Release 24 Hour (Wellbutrin XL)Indications:Recu rrent major depressive disorder, in partial remission (HCC) Take 1 Tablet by mouth in the morning. In the morning.. 90 Tablet 1 11/02/2023 Active DULoxetine HCl 60 MG Oral Capsule Delayed Release Particles (Cymbalta)Indicatio ns:Recurrent major depressive disorder, in partial remission (HCC) [...] Active valACYclovir HCl 1 GM Oral Tablet (Valtrex)Indication s:HSV infection TAKE 2 TABLETS BY MOUTH EVERY 12 HOURS FOR COLD SORES. 4 pills total per outbreak. 12 Tablet 5 11/02/2023 Active Celecoxib 100 MG Oral Capsule (CeleBREX) Take 1-2 capsules by mouth as needed for pain, use lowest dose necessary for pain relief. 60 Capsule 2 11/02/2023 Active Ondansetron HCl 4 MG Oral Tablet (Zofran)Indications :Nausea Take 1 Tablet by mouth every 6 hours as needed for Nausea. 30 Tablet 0 11/02/2023 Active DULoxetine HCl 30 MG Oral Capsule Delayed Release Particles (Cymbalta)Indicatio ns:Current mild episode of major depressive disorder without prior episode ([facility]) TAKE 1 CAPSULE BY MOUTH IN THE MORNING ALONG WITH 60 MG CAPSULE FOR TOTAL DAILY DOSE OF 90 MG. 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 History of pulmonary embolism 02/04/2022 Overview: Related to control Gastroesophageal reflux disease without esophagi tis 12/03/2020 Fibromyalgia 12/03/2020 ANGELIQUE (generalized anxiety disorder) 12/03/2020 Current mild episode of kusum r depressive disorder without prior episode 01/05/2020 documented as of this encounter (statuses as of 11/03/2023) Resolved Problems Problem Noted Date Diagnosed Date Resolved Date Acute pancreatitis 02/08/2015 1 Pulmonary embolism 05/26/2013 8 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 management encounter 05/26/2013 07/03/2014 jail current use of ant icoagulant therapy 05/26/2013 08/19/2017 Overview: ICD-10 update of inactive term 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 Normal , first 10/25/200311/15 Lumbago 12/03/2020 Major depressive disorder Overview: ICD-10 update of inactive term documented as of this encounter (statuses as of 11/03/2023) Immunizations Name Administration Dates Next Due COVID-19 mRNA, LNP-s, No Pre serve, 2-Dose Series ([employer]) 03/27/2021,02/12/2021 Seasonal Influenza Virus Vac cine, Unspecified [...] Date Smoking Tobacco: Never Smokeless Tobacco: Never Alcohol Use Standard Drinks/Week Comments Yes 0 [...] on file documented as of this encounter Functional Status Functional Status Response [...] No 02/07/2015 documented as of this encounter Miscellaneous Notes * Telephone Encounter - Norberto Ramirez RPh - 11/03/2023 10:52 AM EST Refused Prescriptions: Disp Refills Ondansetron HCl 4 MG Oral Tablet (Zofran) 30 Tab*0 Sig: TAKE 1 TABLET BY MOUTH EVERY 6 HOURS NEEDED FOR NAUSEARefused By: NORBERTO RAMIREZReason for Refusal: Too soon documented in this encounter Plan of Treatment Upcoming Encounters Date Type Department Care Team (Late st Contact Info) Description 12/02/2023 3:00 PM EST Office Visit Interventional Pain Center, [facility] [address] [place] [address] Jace Puente DO [address] [facility] [place] [phone] 12/10/2023 3:40 PM EST Office Visit Podiatry [facility] [address] [place] [address] [address] Pattie Barrera DPM [address] [facility] [place] [address] Scheduled Procedures Name Priority Associated Diagnoses Date/Ti [...] this encounter Medical Devices Implanted Type Area Pairing Machine Operator Device Identifier Shelf Expiration Date Model / Serial / Lot Fibertak Dx Suture [place] With 1.33 Mm Suturetape Implanted:Qty: 2 on 09/05/2021 by Mario Desir, DO at OR [facility] Left: Elbow 05/14/2026 [id number] / / [id number] Description:with 1.3 mm Fibe rWire SutureTape and [place] Lead Kit Trial [id number] 50cm - [id number] - [id number] Implanted:Qty: 1 on 09/09/2023 by Jace Puente, DO at OR [facility] Left: Back rubberit [employer]ENT[employer] : PAIN MGMT 06/13/2025 [id number] / [id number] / documented as of this encounter Visit Diagnoses Diagnosis Nausea Nausea alone documented in this encounter Advance Directives Latest [...] the patient have Health Care Power of Fire Prevention Forester? No Care Teams Exercise Instruct Relationship Specialty Start Date End Date Tiny Brownlee DO [address] [place] [address] PCP - General Family Medicine 12/30/21 documented as of this encounter
--- OUTSIDE RECORDS SUMMARY | 2023-11-05 08:13 | External Medical Summary | Summary of Care ---
Author Name Unknown Organization [facility] Address [address] [facility] [place] [address] Phone [phone] Care Team Providers Care Relay Man Name Role Phone Tiny Brownlee DO Primary Care Provider [phone] Reason for Visit * Reason Comments eRx-Medication Refill Encounter Details Date Type Department Care Team (Late st Contact Info) Description 11/02/2023 Refill Family Practice [facility] [address] [place] [address] Tiny Brownlee DO [address] [place] [address] Recurrent major depressive disorder, in partial remission (HCC); HSV infection Allergies No known active allergiesdocumented as of [...] morning. 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 Normal , first 10/25/200311/15 Lumbago 12/03/2020 Major depressive disorder Overview: ICD-10 update of inactive term documented as of this encounter (statuses as of 11/03/2023) Immunizations Name Administration Dates Next Due COVID-19 mRNA, LNP-s, No Pre serve, 2-Dose Series ([employer]) 03/27/2021,02/12/2021 Seasonal Influenza Virus Vac cine, Unspecified [...] Miscellaneous Notes * Telephone Encounter - Norberto Melgar RP - 11/03/2023 10:49 AM EST Refused Prescriptions: Disp Refills buPROPion HCl ER (XL) 300 MG Oral Tablet E*90 Tab*0 Sig: TAKE 1TABLET BY MOUTH IN THE MORNINGRefused By: NORBERTO MELGRA for Refusal: Too soon valACYclovir HCl 1 GM Oral Tablet (Valtrex)4 Tabl*0 Sig: TAKE 2 TABLETS BY MOUTH EVERY 12 HOURS FOR COLD SO RESRefused By: NORBERTO MELGAR for Refusal: Too soon DULoxetine HCl 60 MG Oral Capsule Delayed *90 Cap*0 Sig: TAKE 1 CAPSULE BY MOUTH ONCE DAILY IN THE MORNING (DO NOT CUT, CRUSH OR CHEW)Refused By: NORBERTO MELGAR for Refusal: Too soon documented in this encounter Plan of Treatment Upcoming Encounters Date Type Department Care Team (Late st Contact Info) Description 12/02/2023 3:00 PM EST Office Visit Interventional Pain Center, [facility] [address] [place] [address] Jace Puente, [address] [place] [phone] 12/10/2023 3:40 PM EST Office Visit Podiatry [facility] [address] [place] [address] Pattie Barrera, DPM [address] [facility] [place] [address] Scheduled Procedures Name Priority Associated Diagnoses Date/Ti [...] this encounter Medical Devices Implanted Type Area Complaints Coordinator Device Identifier Shelf Expiration Date Model / Serial / Lot Fibertak Dx Suture [place] With 1.33 Mm Suturetape Implanted:Qty: 2 on 09/05/2021 by Mario Desir DO at OR [facility] Left: Elbow 05/14/2026 [id number] / / [id number] Description:with 1.3 mm Fibe rWire SutureTape and [place] Lead Kit Trial [id number] 50cm - [id number] - [id number] Implanted:Qty: 1 on 09/09/2023 by Jace Puente DO at OR [facility] Left: Back [place] [employer] : PAIN MGMT 06/13/2025 [id number] / [id number] / documented as of this encounter Visit Diagnoses Diagnosis Recurrent major depressive disorder, in partial remission (HCC) HSV infection Herpes simplex without mention of complication documented in this encounter Advance Directives Latest [...] the patient have Health Care Power of Department Helper? No Care Teams Relay Man Relationship Specialty Start Date End Date Tiny Brownlee DO [address] [place] [address] PCP - General Family Medicine 12/30/21 documented as of this encounter
--- OUTSIDE RECORDS SUMMARY | 2023-11-05 08:14 | External Medical Summary | Summary of Care ---
Author Name Unknown Organization [facility] Address [address] [address] Phone [phone] Care Team Providers Care Assurance Assistant Name Role Phone oTrrieTiny Marino BYRD Primary Care Provider [phone] Reason for Visit * Reason Onset Date Comments pre-op exam Spinal stimulato r scheduled 11/06/23-had pre op testing done at [facility] (EKG, cxr, labs) Medication Administration 11/02/2023 Flu an d/or Pneumo Inj Encounter Details Date Type Department Care Team (Late st Contact Info) Description 11/02/2023 2:40 PM EST Office Visit Family Practice [facility] [address] [place] [address] Anthony Louis MD [address] [facility] [place] [address] Preop general physical exam*; Recurrent major depressive [...] morning. 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 No Have you had Guillain-Allport Syndrome (an illness that causes paralysis) within [...] scheduled 11/06/23-had pre op testing done at [facility] (EKG, cxr, labs)) . Here for preop requested by Dr Yaniv Beckham for spinal stimulator placement @[facility] under [place] on 11/05/23. Pt has hx spinal fusion, ongoing sciatica & LBP. Per pt, trial stimulator was helpful for all the above Excellent MET tolerance. Had preop labs and CXR at [facility] this AM--reviewed & WNL. I don't have [...] performed by Caroline Chadwick MD at OR [facility] ANORECTAL EXAM ,DIAG, REQUIRING ANESTHESIA N/A 10/22/2022 ANORECTAL EXAM UNDER ANESTHESIA performed by Caroline Chadwick MD at OR [facility] BREAST LESION,OTHER,EXCISION Right 06/27/2019 PATH-pending COLONOSCOPY W/ BIOPSY (RECTUM) 12/16/2011 biopsies taken to check for microscopic colitis, hemorroids, normal biopsy, most likely symptoms related to irritable bowel syndrome COLONOSCOPY, DIAGNOSTIC (RECTUM) 01/01/2021 normal, repeat 10 yrs / COLONOSCOPY FLEXIBLE PROXIMAL DIAGNOSTIC performed by Yun Stanley DO at ENDOSCOPY [facility] COLONOSCOPY, DIAGNOSTIC (RECTUM) 12/04/2022 normal / COLONOSCOPY FLEXIBLE PROXIMAL DIAGNOSTIC performed by Marlen Desai MD at ENDOSCOPY [facility] DENTAL SURGERY PROCEDURE NEC Dental Surgery Procedure EGD, FLEXIBLE, DIAGNOSTIC 09/20/2013 UPPER GI ENDOSCOPY DIAGNOSTIC performed by Alessandro Cortez MD at ENDOSCOPY [facility] EGD, FLEXIBLE, DIAGNOSTIC 02/07/2015 mild inflammation, pancreatic stent removed/[facility] EGD, FLEXIBLE, DIAGNOSTIC 02/14/2015 ESOPHAGOGASTRODUODENOSCOPY (EGD), FLEXIBLE, TRANSORAL, DIAGNOSTIC performed by Tavares Mooney MD at ENDOSCOPY [facility] EGD, FLEXIBLE, DIAGNOSTIC 01/02/2016 mild gastritis/ESOPHAGOGASTRODUODENOSCOPY (EGD), FLEXIBLE, TRANSORAL, DIAGNOSTIC performed by Yun Stanley DO at ENDOSCOPY [facility] EGD, FLEXIBLE, DIAGNOSTIC 11/19/2016 mild inflammation on bx/ESOPHAGOGASTRODUODENOSCOPY (EGD), FLEXIBLE, TRANSORAL, DIAGNOSTIC performedby Yun Stanley DO at ENDOSCOPY [facility] EGD, FLEXIBLE, DIAGNOSTIC 01/15/2020 mid gastric irritation on bx / [facility] EGD, FLEXIBLE, DIAGNOSTIC 12/04/2022 normal bx / ESOPHAGOGASTRODUODENOSCOPY (EGD), FLEXIBLE, TRANSORAL, DIAGNOSTIC performed by Marlen Desai MD at ENDOSCOPY [facility] EGD, W/ENDOSCOPIC US 12/20/2013 ESOPHAGOGASTRODUODENOSCOPY (EGD), FLEXIBLE, TRANSORAL, ENDOSCOPIC ULTRASOUND performed by Dilip Elizabeth MD at OR [facility] ELBOW TENOTOMY W/RE-ATTACH W/ RADHA, OPEN Left 09/05/2021 TENOTOMY ELBOW TENDON REPAIR performed by Mario Desir DO at OR [facility] ERCP, DIAGNOSTIC, SPECIMEN COLLECTION 01/28/2015 Biliary papillary stenosis/[facility] EVAL NEUROSTIM PULSE GEN, W/ REPROGRAM Bilateral 09/09/2023 NEUROSTIMULATOR PULSE GENERATOR/ TRANSMITTER, WITH INTRAOPERATIVE OR SUBSEQUENT PROGRAMMING performed by Jace Puente DO at OR [facility] IMPLANT EPIDURAL NEUROELECTRODES Bilateral 09/09/2023 PERCUTANEOUS IMPLANTATION NEUROSTIMULATOR EPIDURAL performed by Jace Puente DO at OR [facility] INJECT DX/THER SUBSTANCE INTERLAMINAR LUMBAR/SACRAL W IMAGE GUIDE 03/01/2023 INJECTION SPINE LUMBAR OR SACRAL performed by Jace Puente DO at OR [facility] KNEE ARTHROSCOPY, DIAGNOSTIC left knee LAP;W/HYSTERECTOMY LAPAROSCOPY DIAGNOSTIC N/A 01/27/2023 LAPAROSCOPY DIAGNOSTIC performed by Tosin Durán MD at OR [facility] LAPAROSCOPY; CHOLECYSTECTOMY 01/15/2015 01/15/2015 laparoscopic cholecystectomy [facility] [place] 01/08/15 LAPAROSCOPY;RMV ADNEXAL STRUCT Bilateral 01/27/2023 LAPAROSCOPIC OOPHORECTOMY AND OR SALPINGECTOMY performed by Tosin Durán MD at OR 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 diltiazem 2% 2% MS GEL Administer 1 Application Dosing Unit into [...] scheduled 11/06/23-had pre op testing done at [facility]. documented in this encounter Miscellaneous Notes * Addendum Note - Vicki Daly LPN - 11/02/2023 3:21 PM ESTAddended by: VICKI DALY on: 11/02/2023 03:21 PM Modules accepted: Orders documented in this encounter Plan of Treatment Upcoming Encounters Date Type Department Care Team (Late st Contact Info) Description 12/02/2023 3:00 PM EST Office Visit Interventional Pain Center, [facility] [address] [facility] [place] [address] Jace Puente DO [address] [facility] [place] [phone] Scheduled Procedures Name Priority Associated Diagnoses Date/Ti [...] this encounter Medical Devices Implanted Type Area Batch Mixer Device Identifier Shelf Expiration Date Model / Serial / Lot Fibertak Dx Suture Mallory With 1.33 Mm Suturetape Implanted:Qty: 2 on 09/05/2021 by Mario Desir DO at OR [facility] Left: Elbow 05/14/2026 [id number] / / [id number] Description:with 1.3 mm Fibe rWire SutureTape and Conrad Lead Kit Trial [id number] 50cm - [id number] - [id number] Implanted:Qty: 1 on 09/09/2023 by Jace Puente DO at OR [facility] Left: Back Second Sight : PAIN MGMT 06/13/2025 [id number] / [id number] / documented as of this encounter Visit [...] the patient have Health Care Power of Technology Architect? No Care Teams Assurance Assistant Relationship Specialty Start Date End Date Tiny Brownlee DO [address] [place] [address] PCP - General Family Medicine 12/30/21 documented as of this encounter
[2023-11-05] MEDS ORDERED: ATROPINE SULFATE 0.1 MG/ML 10ML SYR IV PRN (08:29)
[2023-11-05] MEDS ORDERED: ONDANSETRON INJ 2 MG/ML 2 ML VIAL IV PRN ×2 (08:29→17:24)
[2023-11-05] MEDS ORDERED: ePHEDrine sulfate 50 MG/ML AMP IV PRN (08:29)
[2023-11-05] MEDS ORDERED: fentaNYL citrate PF 100 MCG/2 ML VIAL ONE ×2 (08:31→09:26)
[2023-11-05] MEDS ORDERED: MIDAZOLAM HCL 1 MG/ML 2ML VIAL ONE (08:31)
--- NOTE | 2023-11-05 08:40 | History & Physical Bridge Note ---
Date of Service November 05, 2023 History & Physical Bridge Note I have examined the patient, reviewed the History & Physical and in the interval since the performance of the History & Physical I have noted the following changes of clinical significance: no changes noted
--- NOTE | 2023-11-05 08:41 | History & Physical Report ---
Date of Service November 05, 2023 Assessment & Plan (1) Postlaminectomy syndrome of lumbar region: Plan: Spinal cord stimulator placement History of Present Illness Chief Complaint: Chronic back and leg pain Primary Care Provider: Tiny Brownlee DO This is a 43-year-old female who presents with chronic back and leg pain after undergoing successful spinal cord stimulator trial is here for permanent placement. Allergies Allergy/AdvReac Type Severity Reaction Status Date / Time tramadol AdvReac Mild "Did not Verified 11/05/23 08:15 help" with pain Home Medications Medication Instructions Recorded Confirmed Type hydroxyzine HCl 25 mg tablet 25 mg PO Q6H PRN Anxiety 04/25/20 11/05/23 History omeprazole 40 mg capsule,delayed 40 mg PO QAM 04/25/20 11/05/23 History release loratadine 10 mg tablet 10 mg PO QAM 12/03/20 11/05/23 History promethazine 25 mg tablet 25 mg PO Q6H PRN Nausea And 12/03/20 11/05/23 History Vomiting Medical Marijuana 1 dose PO HS sleep 05/16/21 11/05/23 History sennosides 8.6 mg tablet (Senokot) 8.6 mg PO HS PRN Constipation 09/21/21 11/05/23 History duloxetine 60 mg capsule,delayed 60 mg PO QAM 02/18/22 11/05/23 History release acidophilus 100 million 1 cap PO QAM 05/22/23 11/05/23 History cell-pectin, citrus 10 mg capsule ascorbic acid (vitamin C) 500 mg 500 mg PO QAM 05/22/23 11/05/23 History tablet bupropion HCl 300 mg 24 hr tablet, 300 mg PO QAM 05/22/23 11/05/23 History extended release celecoxib 100 mg capsule 100 mg PO DAILY PRN Pain 05/22/23 11/05/23 History cyclobenzaprine 10 mg tablet 10 mg PO BID PRN muscle spasm 05/22/23 11/05/23 History duloxetine 30 mg capsule,delayed 30 mg PO QAM 05/22/23 11/05/23 History release metoclopramide HCl 5 mg tablet 5 mg PO TID PRN Dyspepsia 05/22/23 11/05/23 History sucralfate 100 mg/mL oral 10 ml PO TID PRN Dyspepsia 05/22/23 11/05/23 History suspension sumatriptan succinate 50 mg tablet 100 mg PO UD PRN migraines 05/22/23 11/05/23 History valacyclovir 1 gram tablet 2,000 mg PO Q12H PRN flare 05/22/23 11/05/23 History acetaminophen 500 mg tablet 1,000 mg (2 x 500 mg) PO Q8H #60 05/25/23 11/05/23 Rx (Tylenol Extra Strength) tabs docusate sodium 100 mg tablet 100 mg PO BID PRN Constipation #20 05/25/23 11/05/23 Rx tabs ibuprofen 400 mg tablet 400 mg PO Q6H PRN pain #30 tabs 05/25/23 11/05/23 Rx polyethylene glycol 3350 17 gram 17 g PO DAILY #14 ea 05/25/23 11/05/23 Rx oral powder packet (Miralax) naproxen 500 mg tablet 500 mg PO BID PRN pain #20 tabs 08/26/23 11/05/23 Rx Past Med/Surg History Medical History (Updated 11/05/23 @ 08:41 by Yaniv Beckham DO) Refusal of blood transfusions as patient is Anglican Hx of chest pain 05/2023, seen in tn er, ~1 week post-op from cervical spine sx.; no cardiac findings, "thought to be from post-op pain, no signs of pulmonary embolism either" Spinal stenosis Arthritis History of skin cancer removed Anxiety and depression Pulmonary embolism 2014- ? r/t control, was on blood thinner for short period of time GERD (gastroesophageal reflux disease) controlled, stable per pt Degenerative disc disease Lumbar Fibromyalgia Migraine Surgical History Hx of cervical spine surgery ~05/2023 History of sinus surgery Closure of Large Oral Sinus Opening, Left Sinus [place] ([place], [place]) H/O exploratory laparotomy History of tooth extraction History of esophagogastroduodenoscopy (EGD) History of colonoscopy History of knee surgery Left knee x2 (open + arthroscopic, 1997) Hx of shoulder surgery Right History of cholecystectomy S/P lumbar spinal fusion 2017, 2018 S/P laparoscopic hysterectomy 2016 (ovaries remain) Family History Grandfather Family history of diabetes mellitus Grandmother Family history of diabetes mellitus Grandmother Family hx of colon cancer Grandmother (Maternal) Diabetes Colorectal cancer Father Heart disease Mother Hypertension Uncle Stroke Other Cancer Gall bladder disease Lung disease No family history of adverse response to anesthesia Social History Smoking Status: Never smoker Second Hand Exposure: No; Do You Dip or Chew Tobacco: No; Tobacco Cessation Education Requested by Patient: No Hx Alcohol Use: Yes Alcohol type: wine Alcohol Intake Frequency: Monthly or Less Hx Substance Use: Yes (medical card) Last Used Substance Other:: uses nightly to help with sleep-advised Substance Use Type Other:: liquid tincture under tongue Preferred Language: Syriac Communication Ability: Effective Visual Impairment: No Limitations Barkeeper Required: No Beliefs That Will Affect Care: Mormon Mormon Beliefs: Gnosticism- no blood products 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
[2023-11-05] MEDS ORDERED: ceFAZolin 330 MG/ML 1 GM VIAL ONE (08:51)
[2023-11-05] MEDS ORDERED: BUPIVACAINE/EPINEPHRINE 0.25% 1:200,000 30 ML VIAL ONE (08:51)
[2023-11-05] MEDS ORDERED: FLOSEAL HEMOSTATIC MATRIX 10ML TOP ONE (09:21)
[2023-11-05] MEDS ORDERED: ROCURONIUM BROMIDE 10 MG/ML 5 ML VIAL IV ONE (09:29)
[2023-11-05] MEDS ORDERED: ONDANSETRON INJ 2 MG/ML 2 ML VIAL ONE (09:29)
[2023-11-05] MEDS ORDERED: DEXAMETHASONE SOD INJ 4 MG/ML VIAL ONE (09:29)
[2023-11-05] MEDS ORDERED: PROPOFOL IV EMULSION 10 MG/ML 20 ML VIAL IV ONE (09:29)
[2023-11-05] MEDS ORDERED: SUGAMMADEX SODIUM 200 MG/2 ML VIAL IV ONE (10:01)
--- NOTE | 2023-11-05 10:06 | Operative Report ---
Post Operative Report Pre & Post Diagnosis Operation Date: 11/05/23 09:15 Pre-Op Diagnosis: Postlaminectomy syndrome of lumbar region Post-Op Diagnosis: Postlaminectomy syndrome of lumbar region I identified the patient and participated in the time-out.: Yes Procedure Operation Date: 11/05/23 09:15 Actual Procedures #1 T8-9 and T10 laminotomy. #2 placement of [employer] 32-lead paddle extending from T8-T10. #3 placement of rechargeable battery. Surgeon Yaniv Beckham, DO [employer] Mario Ivey Estimated Blood Loss 10 Findings Consistent with Post-Op Diagnosis Specimens None weight Indications This is a 43-year-old female that presents with chronic persistent back and leg pain. She underwent a successful spinal cord stimulator trial and is here for permanent placement. Description of Procedure Patient was met with identified informed consent obtained. Patient was then taken to the operative suite underwent ablation placed in a prone position on the Bessie table top Sarabjit frame. All bony promises well-padded eyes inspected to ensure no external precipice spine. This point the cervical spine was prepped and draped in a sterile fashion. The assistance of fluoroscopy identified the T10-T11 interlaminar space. Sharp dissection with assistance of Bovie cards from down to and exposing this region. Then performed a midline laminotomy of T10 large enough to pass a spinal cord paddle cephalad. Unfortunately it was inhibited by significant resistance and epidural ligaments. Subsequently had to perform a second laminotomy at T9 to release the epidural ligaments and created a large enough area for the paddle. After this complete the paddle was placed and set between the T8 and T10. Satisfied positioning it was locked into position. Then created a pocket over the right flank by way of a trocar the leads were taken and flank attached the battery tested for impedances. Incisions were then irrigated the battery placed within the pocket and all incisions closed with subcutaneous Vicryl and 4 Monocryl for fascial closure. Steri-Strips sterile dressing placed. Patient awakened taken to PACU stable condition. Please note Mario Ivey was present at the entire procedure and all the patient positioning complex portion of the surgery and final skin closure. I attest to the content of the Intraoperative Record and any orders documented therein. Any exceptions are noted below.
[2023-11-05] MEDS ORDERED: HYDROmorphone INJ 0.5 MG/0.5 ML SYR IV PRN ×4 (10:07→17:24)
[2023-11-05] MEDS ORDERED: oxyCODONE HCL IR 5 MG TAB (IMMEDIATE RELEASE) PO PRN ×2 (10:07)
[2023-11-05] MEDS: fentaNYL citrate PF 100 MCG/2 ML VIAL IV PRN ×4 (10:38→10:54)
[2023-11-05] MEDS ORDERED: HYDROmorphone INJ 0.5 MG/0.5 ML SYR IV STA ×5 (11:06→11:57)
[2023-11-05] MEDS ORDERED: ACETAMINOPHEN 1,000 MG/100 ML VIAL IV STA (11:06)
[2023-11-05] MEDS ORDERED: ACETAMINOPHEN 1000 MG/100 ML IV IV ONE (11:07)
[2023-11-05] MEDS ORDERED: KETOROLAC TROMETHAMINE 15 MG/ML VIAL IV ONE (11:20)
[2023-11-05] MEDS ORDERED: LORazepam 2 MG in SYRINGE 1 ML IV STA (12:06)
--- NOTE | 2023-11-05 14:09 | Anesthesiology Progress Note ---
Date of Service November 05, 2023 Anesthesia Post Procedure Vital Signs Vital Signs: Temp Pulse Pulse Resp BP BP Pulse Ox 11/05/23 13:30 79 14 132/84 94 11/05/23 13:00 37.0 C 94 H 16 146/90 H 93 11/05/23 12:45 81 16 150/70 H 94 11/05/23 12:35 92 H 14 127/78 93 11/05/23 12:25 36.8 C 80 16 148/82 H 94 11/05/23 12:15 36.8 C 106 H 15 184/114 H 99 11/05/23 12:05 108 H 16 189/111 H 96 11/05/23 11:55 104 H 14 173/112 H 100 11/05/23 11:45 78 21 157/111 H 95 11/05/23 11:35 74 20 174/107 H 95 11/05/23 11:25 87 12 144/100 H 99 11/05/23 11:15 87 12 151/97 H 98 11/05/23 11:05 83 17 137/109 H 100 11/05/23 10:55 83 18 143/117 H 100 11/05/23 10:45 84 18 174/103 H 100 11/05/23 10:35 36.4 C L 81 20 175/97 H 100 11/05/23 08:22 37.1 C 73 20 141/107 H 98 O2 Del Method O2 Flow Rate 11/05/23 13:30 Room Air 11/05/23 13:00 Room Air 11/05/23 12:45 Room Air 11/05/23 12:35 Room Air 11/05/23 12:25 Nasal Cannula 2 11/05/23 12:15 Room Air 11/05/23 12:05 Room Air 11/05/23 11:55 Room Air 11/05/23 11:45 Room Air 11/05/23 11:35 Room Air 11/05/23 11:25 Room Air 11/05/23 11:15 Room Air 11/05/23 11:05 Room Air 11/05/23 10:55 Oxymask 4 11/05/23 10:45 Oxymask 6 11/05/23 10:35 Oxymask 6 11/05/23 08:22 Room Air Pain Intensity Bilateral Lower Back: Pain Intensity: 6 Transfer of Care Handoff Completed per policy Notes Mental Status: alert / awake / arousable Patient Amnestic to Procedure: Yes Nausea / Vomiting: adequately controlled Pain: adequately controlled Airway Patency, RR, SpO2: stable & adequate BP & HR: stable & adequate Hydration State: stable & adequate Anesthetic Complications: no major complications apparent and Pt Satisfied with anesthetic care
[2023-11-05] MEDS ORDERED: ONDANSETRON INJ 2 MG/ML 2 ML VIAL IV STA (16:31)
[2023-11-05] MEDS ORDERED: FAMOTIDINE 20 MG TAB PO PRN (17:24)
[2023-11-05] MEDS ORDERED: ALUMINUM/MAGNESIUM SUSP 30 ML UDC PO PRN (17:24)
[2023-11-05] MEDS ORDERED: LORazepam 0.5 MG in SYRINGE 0.25 ML IV PRN (17:24)
[2023-11-05] MEDS ORDERED: LORazepam 0.5 MG TAB PO PRN (17:24)
[2023-11-05] MEDS ORDERED: bisacodyL 10 MG SUPP PR PRN (17:24)
[2023-11-05] MEDS ORDERED: MAGNESIUM HYDROXIDE SUSP 30 ML UDC PO PRN (17:24)
[2023-11-05] MEDS ORDERED: PROMETHAZINE HCL 12.5 MG in SODIUM CHLORIDE 0.9% 50 ML IV PRN (17:24)
[2023-11-05] MEDS ORDERED: DO NOT ADMINISTER FLU VACCINE PRN (17:24)
[2023-11-05] MEDS ORDERED: METOCLOPRAMIDE HCL 5 MG TABLET PO PRN (17:24)
[2023-11-05] MEDS ORDERED: SUMAtriptan succinate 100 MG TAB PO PRN (17:24)
[2023-11-05] MEDS ORDERED: IBUPROFEN 200 MG TAB PO PRN (17:24)
[2023-11-05] MEDS ORDERED: ACETAMINOPHEN 1,000 MG/100 ML VIAL IV PRN (17:24)
[2023-11-05] MEDS ORDERED: SOD PHOSPHATE/SOD BIPHOSPHATE ENEMA 132 ML BTL PR PRN (17:24)
[2023-11-05] MEDS ORDERED: SENNA 8.6 MG TAB PO PRN (17:24)
[2023-11-05] MEDS ORDERED: PROMETHAZINE HCL 25 MG TAB PO PRN (17:24)
[2023-11-05] MEDS ORDERED: METOCLOPRAMIDE HCL INJ 5 MG/ML 2 ML VIAL IV PRN (17:24)
[2023-11-05] MEDS ORDERED: ONDANSETRON 4 MG OD TAB PO PRN (17:24)
[2023-11-05] MEDS ORDERED: hydrOXYzine HCl 25 MG TAB PO PRN ×2 (17:24)
[2023-11-05] MEDS ORDERED: NALOXONE HCL 0.4 MG/1 ML VIAL/CARP IV PRN (17:24)
[2023-11-05] MEDS ORDERED: diphenhydrAMINE Capsule 25 MG CAP PO PRN (17:24)
[2023-11-05] MEDS ORDERED: CELECOXIB 100 MG CAP PO PRN (17:24)
[2023-11-05] MEDS ORDERED: ACETAMINOPHEN 500 MG TAB PO PRN (17:24)
[2023-11-05] MEDS ORDERED: DO NOT ADMINISTER PNEUMOCOCCAL VACCINE PRN (17:24)
[2023-11-05] MEDS ORDERED: SUCRALFATE 1 GM/10 ML UDC PO PRN (17:24)
[2023-11-05] MEDS ORDERED: HYDROmorphone INJ 1 MG/ML SYRINGE IV PRN (17:24)
[2023-11-05] MEDS: LACTATED RINGER'S 1,000 ML IV SCH ×2 (17:45→17:51)
[2023-11-05] MEDS: oxyCODONE HCL IR 5 MG TAB (IMMEDIATE RELEASE) PO PRN ×2 (18:05→21:59)
[2023-11-05] MEDS: ceFAZolin 2000MG 2,000 MG/15 ML SYR IV SCH (19:39)
[2023-11-05] MEDS: KETOROLAC 30 MG/ML VIAL IV PRN (19:44)
[2023-11-05] MEDS ORDERED: MEDICAL MARIJUANA PO SCH (21:00)
[2023-11-05] MEDS ORDERED: DOCUSATE SODIUM/SENNA 50/8.6MG TAB PO SCH (21:00)
[2023-11-06] MEDS: ceFAZolin 2000MG 2,000 MG/15 ML SYR IV SCH (02:00)
[2023-11-06] MEDS: KETOROLAC 30 MG/ML VIAL IV PRN (02:06)
[2023-11-06] MEDS: oxyCODONE HCL IR 5 MG TAB (IMMEDIATE RELEASE) PO PRN ×4 (02:06→14:48)
[2023-11-06] MEDS: POLYETHYLENE (MIRALAX) 17 GM PACK PO SCH ×2 (06:13→13:39)
[2023-11-06] MEDS ORDERED: POLYETHYLENE (MIRALAX) 17 GM PACK PO SCH (09:00)
[2023-11-06] MEDS ORDERED: DULoxetine HCL 30 MG CAP PO SCH (09:00)
[2023-11-06] MEDS ORDERED: buPROPion XL 300 MG TABCR PO SCH (09:00)
[2023-11-06] MEDS ORDERED: DULoxetine HCL 60 MG CAP PO SCH (09:00)
[2023-11-06] MEDS ORDERED: PANTOprazole 40 MG TAB PO SCH (09:00)
[2023-11-06] MEDS ORDERED: LORATADINE 10 MG TAB PO SCH (09:00)
--- NOTE | 2023-11-06 10:19 | Discharge Summary ---
Date of Service November 06, 2023 Admission HPI Per Admitting Provider This is a 43-year-old female who presents with chronic back and leg pain after undergoing successful spinal cord stimulator trial is here for permanent placement. Principal Diagnosis Post lumbar laminectomy syndrome Discharge Data Allergies Allergy/AdvReac Type Severity Reaction Status Date / Time tramadol AdvReac Mild "Did not Verified 11/05/23 08:15 help" with pain Procedures Performed Operation Date: 11/05/23 09:15 Actual Procedures p Spinal Cord Stimulator Placement(Not Applicable) - Yaniv Beckham DO Ordered Studies 11/05/23 09:15 FL fluoro for pain procedure Routine Hospital Course (1) Postlaminectomy syndrome of lumbar region: Patient underwent spinal cord stimulator placement. Postoperatively her pain was poorly controlled. Subsequently elected to keep her overnight for adequate pain control this morning she is comfortable up and ambulating. She is anxious to return home. Discharge orders instructions found in chart for further review. Total Time Total Time Spent Total Time Spent (In Minutes): 20 minutes Discharge Plan Discharge Items Patient Disposition: Home - Self-Care Reason For Visit: POST OP Discharge Diagnosis: Post lumbar laminectomy syndrome Activity: As commented below Non-emergency contact: Primary Care Provider Call non-emergency contact if: you have any medication questions Follow-up/Referrals: Yaniv Beckham DO [Surgeon] - Tiny Brownlee DO [Primary Care Provider] - Diet: Regular Addtl Attending Provider Instructions: ACTIVITY RECOMMENDATIONS: SELF CARE INSTRUCTIONS AFTER A LAMINECTOMY 1. No prolonged sitting (less than 30 minutes for the first 3 weeks after surgery). 2. No bending, lifting more than 5 pounds, or twisting (roll like a log when turning in bed). 3. You may shower 3 days after surgery if no drainage from wound. Thoroughly dry wound. Do not soak in the tub. 4. Please walk as much as you can for exercise. Gradually increase the distance that you walk as your endurance increases. 5. You may drive in 7-10 days if you are comfortable and no longer requiring pain medications. SPECIAL CARE INSTRUCTIONS: VERY IMPORTANT TO READ AND REVIEW A. Your surgical incision has been closed with a cosmetic suture under the skin that will dissolve in about 6 weeks. In 14 days, you can use a pair of clean scissors and cut the suture that is left outside of the skin at the ends of your incision. B. Complications are uncommon, but please contact us if you have any signs or symptoms of: 1. wound infection (fever higher than 102.5 degrees F, redness, separation of wound, drainage, or increasing pain from the incision) 2. blood clots in legs (pain, swelling, redness and warmth in legs) 3. urinary tract infection (fever higher than 102.5 degrees, burning upon urination or increased frequency of urination) 4. nerve problems (inability to walk on your toes or heels, numbness, loss of bowel or bladder control) 5. any other symptoms that concern you. C. Please call the office at if you have any concerns or questions about your operation or recovery. MANAGING PAIN AFTER SPINAL SURGERY 1. Narcotic medication is intended for short-term use and will be provided for surgical pain. Surgical pain usually lasts for a period of 4-6 weeks. Narcotic medication includes Percocet, Vicodin, Darvocet, Tylenol #3 or Lortab. 2. Longer-term pain is more appropriately treated with non-narcotic medication such as Tylenol ES. 3. Muscle spasm is not appropriately treated with narcotics. Muscle relaxers such as Soma, Flexeril or Skelaxin can be used along with Tylenol ES. 4. Remember that we all live with some "aches and pains". This is not unusual or uncommon after an injury or as we get older. 5. We will provide appropriate medication within the normal guidelines of their prescribed use. We will also be very cautious and aware of potential abuse and extended duration of patients' medication needs. 6. Please allow 2-3 days to process refills. Prescriptions will not be mailed but must be picked up at the office. FOLLOW UP VISIT: Keep your scheduled follow-up appointment. Any questions, please call the office at . Pending Studies at Discharge: No Stand-Alone Forms: Anesthesia/Sedation, Adult, [facility] Medications and DC Order Prescriptions: New oxycodone 5 mg tablet 5 mg PO Q6H PRN (Reason: pain) Qty: 30 0RF Continued promethazine 25 mg Tablet 25 mg PO Q6H PRN (Reason: Nausea And Vomiting) loratadine 10 mg Tablet 10 mg PO QAM omeprazole 40 mg capsule,delayed release(DR/EC) 40 mg PO QAM hydroxyzine HCl 25 mg tablet 25 mg PO Q6H PRN (Reason: Anxiety) Medical Marijuana 1 dose PO HS Patient Comments: SL/ORAL INGEST ONLY duloxetine 60 mg capsule,delayed release(DR/EC) 60 mg PO QAM Rx Instructions: Take 60mg w/30mg capsule to equal 90mg every morning valacyclovir 1 gram tablet 2,000 mg PO Q12H PRN (Reason: flare) sumatriptan succinate 50 mg tablet 100 mg PO UD PRN (Reason: migraines) Rx Instructions: Take 2 tablets at onset of migraine and one tablet every 2 hours as needed, not more than 5 tablets in 24 hours duloxetine 30 mg capsule,delayed release(DR/EC) 30 mg PO QAM Rx Instructions: Take 30mg w/60mg capsule to equal 90mg every morning metoclopramide HCl 5 mg tablet 5 mg PO TID PRN (Reason: Dyspepsia) ascorbic acid (vitamin C) 500 mg Tablet 500 mg PO QAM celecoxib 100 mg capsule 100 mg PO DAILY PRN (Reason: Pain) bupropion HCl 300 mg tablet extended release 24 hr 300 mg PO QAM acidophilus-pectin, citrus 100 million cell-10 mg Capsule 1 cap PO QAM cyclobenzaprine 10 mg tablet 10 mg PO BID PRN (Reason: muscle spasm) sucralfate 100 mg/mL suspension 10 ml PO TID PRN (Reason: Dyspepsia) acetaminophen [Tylenol Extra Strength] 500 mg Tablet 1,000 mg PO Q8H Qty: 60 0RF polyethylene glycol 3350 [Miralax] 17 gram Powder In Packet 17 g PO DAILY Qty: 14 0RF ibuprofen 400 mg tablet 400 mg PO Q6H PRN (Reason: pain) Qty: 30 0RF docusate sodium 100 mg Tablet 100 mg PO BID PRN (Reason: Constipation) Qty: 20 0RF naproxen 500 mg tablet 500 mg PO BID PRN (Reason: pain) Qty: 20 0RF sennosides [Senokot] 8.6 mg tablet 8.6 mg PO HS PRN (Reason: Constipation) Discharge Orders: Discharge Order (Routine); Ordered 11/06/23 Ordered By: Yaniv Moore/Other Patient Handouts: DVT Post Op Prevention Admission Data Admit Date/Time: 11/05/23 15:39 Attending Provider: Yaniv Beckham Admit Provider: Yaniv Beckham Primary Care Provider: Tiny Brownlee
== END 2023-11-06 15:31 | disposition home or self-care (01) ==
LOC: ASU 07:53 → 3E 07:53

== ENCOUNTER 2023-11-11 19:13 | Inpatient (IN) ==
--- NOTE | 2023-11-11 20:02 | ED Triage Note ---
Date of Service November 11, 2023 Provider in Triage Author: Hank Dee A History of Present Illness This patient was briefly evaluated while in triage. An abbreviated physical exam was performed. This patient is a 43-year-old Female who presents to the ED for evaluation of back pain. Had spinal stimulator placed by Dr Beckham a few days ago. Was in ER yesterday for this. Pt prescribed Oxycodone for pain and picked up the Rx for #30 Oxy IR yesterday. Physical Exam Limited Triage Exam: VITALS: Vitals are noted on the nurse's note and reviewed by myself. Vital signs stable. GENERAL: Well-developed, well-nourished, white female, who is in no acute distress and resting comfortably. Patient is cooperative with the examination. HEART: Regular rate and rhythm without murmurs gallops or rubs. LUNGS: Clear to auscultation bilaterally without wheezes, rales or rhonchi. No retractions or accessory muscle use. NEURO: Patient was alert and oriented to person place and time. Initial orders for labs and / or imaging were placed and patient was placed in the waiting area until a bed is available. Please see further documentation for the full ED course. MDM / Impression Impression Impression: Acute left flank pain, Status post surgery, Paresthesia
[2023-11-11] MEDS ORDERED: KETOROLAC 30 MG/ML VIAL IV STA (20:03)
[2023-11-11 21:57] LABS: Appearance Urine Clear (Clear); Bilirubin Urine Negative (Negative); Blood Urine Negative (Negative); Color Urine Yellow; Glucose Urine UA Negative (Negative); Ketones Urine Negative (Negative); Leukocyte Esterase Urine Negative (Negative); Nitrite Urine Negative (Negative); Protein Urine Negative (Negative); Specific Gravity Urine 1.018 (1.000-1.030); Urobilinogen Urine Negative (Negative)
[2023-11-11 22:10] LABS: Basophils # (auto) 0.09 K/uL (0.00-0.20); Basophils % (auto) 0.8 %; Eosinophils # (auto) 0.61 K/uL (0.00-0.50); Eosinophils % (auto) 5.2 %; Hematocrit (blood only) 42.2 % (37.0-47.0); Hemoglobin 13.7 g/dl (12.0-16.0); Immature Granulocytes # (auto) 0.24 K/uL (0.01-0.20); Lymphocytes # (auto) 2.18 K/uL (1.20-3.40); Lymphocytes % (auto) 18.5 %; Mean Corpuscular Hgb Conc 32.5 g/dL (32.0-36.0); Mean Corpuscular Volume 89.2 fL (80.0-100.0); Mean Platelet Volume 9.7 fL (9.4-12.4); Monocytes # (auto) 0.76 K/uL (0.11-0.59); Monocytes % (auto) 6.5 %; Neutrophils # (auto) 7.89 K/uL (1.40-6.50); Platelet Count 308 K/uL (130-400); RDW Standard Deviation 39.3 fL (36.4-46.3); Red Blood Count 4.73 M/uL (4.20-5.40); White Blood Count 11.77 K/ul (4.8-10.8)
[2023-11-11 22:15] LABS: Albumin Globulin Ratio 1.1 (0.9-2); BUN Creatinine Ratio 14.4 (10-20); Bilirubin,Total 0.5 mg/dl (0.2-1.0); Calcium 9.1 mg/dl (8.6-10.3); Creatinine Clr Calc Pharmacy 83.9 ml/min; Est GFR (African American) 75.1 ml/min; Est GFR (Non-African American) 64.8 ml/min; Globulin 3.5 gm/dl (2.5-4.0); Potassium 3.6 mmol/L (3.5-5.1); Total Protein 7.5 gm/dl (6.0-8.3)
[2023-11-11 22:44] LABS: Amphetamines+Metham, Urine Neg (Neg); Barbiturates, Urine Neg (Neg); Benzodiazepine, Urine Neg (Neg); Cocaine, Urine Neg (Neg); MDMA (Ecstacy), Urine Neg (Neg); Marijuana, Urine Pos (Neg); Methadone, Urine Neg (Neg); Opiate, Urine Neg (Neg); Phencyclidine, Urine Neg (Neg)
[2023-11-12] MEDS ORDERED: MoRPHine SULFATE 4 MG/ML 1 ML CARP\\VIAL IV STA ×2 (01:17→02:54)
[2023-11-12] MEDS ORDERED: ACETAMINOPHEN 1,000 MG/100 ML VIAL IV STA (01:17)
[2023-11-12] MEDS ORDERED: SODIUM CHLORIDE 0.9% 500 ML IV ONE (01:17)
--- NOTE | 2023-11-12 01:24 | Emergency Department Note ---
Impression & Plan Acute left flank pain, Status post surgery, Paresthesia ED Provider Note ED Provider Note NAME: AZUCENA SAM AGE:43 SEX: Female : 1980 ARRIVES VIA: Private vehicle INFORMANT: Patient ED PROVIDER(s): Jessica Aguirre DO CHIEF COMPLAINT: Left flank pain HPI: This is a 43-year-old female presents emergency room due to concern for acute left flank pain and lower extremity paresthesias. Patient underwent placement of a spinal stimulator by Bhavani on Wednesday. She states she began noticing symptoms on Wednesday. She states stimulator was placed on the right, however her pain is on the left. She states has been taking muscle relaxer and oxycodone as recommended by Dr. Beckham. She states she is also having paresthesias in bilateral lower extremities. She states the pain is sharp and intermittent. She states she is also applying ice intermittently. PAST MEDICAL HISTORY:See Below PAST SURGICAL HISTORY:See Below FAMILY HISTORY:See Below SOCIAL HISTORY:See Below HOME MEDICATIONS:See Below ALLERGIES:See Below VITALS:See Below PHYSICAL EXAMINATION: GENERAL: alert, well appearing, well nourished, no distress, non-toxic EYE EXAM: normal conjunctiva, PERRL and EOM's grossly intact OROPHARYNX: no exudate, no erythema, lips, buccal mucosa, and tongue normal and mucous membranes are moist NECK: supple, no nuchal rigidity, no adenopathy, non-tender LUNGS: Clear to auscultation. Normal chest wall mechanics, no w/r/r HEART: no murmurs, S1 normal and S2 normal ABDOMEN: abdomen soft, non-tender, normo-active bowel sounds, no masses, no rebound or guarding. BACK: Back is symmetrical on inspection and there is no deformity, no midline tenderness, no CVA tenderness. Two vertical incisions at midline and right lateral back well-appearing and healing, Steri-Strips intact, no wound dehiscence, no discharge or bleeding, no surrounding erythema; previously well- healed vertical midline incision over the lumbar area. SKIN: no rashes, petechiae, orbruising UPPER EXTREMITIES: upper extremities are grossly normal. FROM, nml pulses b/l. LOWER EXTREMITIES: No pitting edema. FROM, nml pulses b/l. NEURO EXAM: Normal sensorium, cranial nerves II-XII grossly intact, normal speech, no facial droop,nogross weakness of arms, no gross weakness of legs. Gross sensation intact. No ataxia. Vital Signs: reviewed and remarkable Differential Diagnosis: Differential diagnoses includes but is not limited to lumbar radiculopathy, muscle strain, facture, cauda equina, mass, and disc herniation. MEDICAL DECISION MAKING: This is a 43-year-old female who presents emergency room due to concern for left flank pain and lower extremity paresthesias after recently having a stimulator placed by Dr. Beckham. She was afebrile and vital signs stable. Labs drawn and sent, IV established, patient given IV morphine, IV Tylenol, and IV Toradol for pain. She was sent for CT of the abdomen pelvis to rule out additional pathology. Labs and imaging reassuring. Case discussed with Dr. Beckham, her insurance billing specialist who had placed the stimulator in her last Wednesday. He will admit for additional observation and pain control as a precaution. Patient was given a second dose of IV morphine. Her vital signs remained stable throughout. She was updated on results and plan, verbalized understanding, and was in agreement. Consultation(s): 0255: Discussed with Dr. Beckham. He will admit for observation and pain control. ER Treatment Provided: See below Diagnostics Interpreted By Me: -ECG: [] -Cardiac Monitoring: An order was placed for continuous cardiac monitoring. The monitor shows a rate of 76 with normal sinus rhythm. -Laboratory studies: As stated above and show below. -Imaging studies: [] Triage Nursing Note Reviewed Prior/Outside Records Reviewed -recent operative note and discharge summary reviewed Past Med/Surg History Medical History Refusal of blood transfusions as patient is Zoroastrianism Hx of chest pain 05/2023, seen in tx er, ~1 week post-op from cervical spine sx.; no cardiac findings, "thought to be from post-op pain, no signs of pulmonary embolism either" Spinal stenosis Arthritis History of skin cancer removed Anxiety and depression Pulmonary embolism 2014- ? r/t control, was on blood thinner for short period of time GERD (gastroesophageal reflux disease) controlled, stable per pt Degenerative disc disease Lumbar Fibromyalgia Migraine Surgical History Hx of cervical spine surgery ~05/2023 History of sinus surgery Closure of Large Oral Sinus Opening, Left Sinus [place] (2020, [place]) H/O exploratory laparotomy History of tooth extraction History of esophagogastroduodenoscopy (EGD) History of colonoscopy History of knee surgery Left knee x2 (open + arthroscopic, 1997) Hx of shoulder surgery Right History of cholecystectomy S/P lumbar spinal fusion 2017, 2018 S/P laparoscopic hysterectomy 2016 (ovaries remain) Family History Grandfather Family history of diabetes mellitus Grandmother Family history of diabetes mellitus Grandmother Family hx of colon cancer Grandmother (Maternal) Diabetes Colorectal cancer Father Heart disease Mother Hypertension Uncle Stroke Other Cancer Gall bladder disease Lung disease No family history of adverse response to anesthesia Social History Smoking Status: Never smoker Second Hand Exposure: No; Do You Dip or Chew Tobacco: No; Hx Alcohol Use: Yes Alcohol type: wine Alcohol Intake Frequency: Monthly or Less Hx Substance Use: Yes (medical card) Last Used Substance Other:: uses nightly to help with sleep-advised Substance Use Type Other:: liquid tincture under tongue Preferred Language: [place] Communication Ability: Effective Visual Impairment: No Limitations [employer] Mainframe Developer Required: No Beliefs That Will Affect Care: Druze Druze Beliefs: Rastafari- no blood products 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 Feels Safe at Home: Yes Assistive Devices: None Allergies Allergies Allergy/AdvReac Type Severity Reaction Status Date / Time tramadol AdvReac Mild "Did not Verified 11/05/23 08:15 help" with pain Home Meds Home Medications Medication Instructions Recorded Confirmed hydroxyzine HCl 25 mg tablet 25 mg PO Q6H PRN Anxiety 04/25/20 11/05/23 omeprazole 40 mg capsule,delayed 40 mg PO QAM 04/25/20 11/05/23 release loratadine 10 mg tablet 10 mg PO QAM 12/03/20 11/05/23 promethazine 25 mg tablet 25 mg PO Q6H PRN Nausea And 12/03/20 11/05/23 Vomiting Medical Marijuana 1 dose PO HS sleep 05/16/21 11/05/23 sennosides 8.6 mg tablet (Senokot) 8.6 mg PO HS PRN Constipation 09/21/21 11/05/23 duloxetine 60 mg capsule,delayed 60 mg PO QAM 02/18/22 11/05/23 release acidophilus 100 million 1 cap PO QAM 05/22/23 11/05/23 cell-pectin, citrus 10 mg capsule ascorbic acid (vitamin C) 500 mg 500 mg PO QAM 05/22/23 11/05/23 tablet bupropion HCl 300 mg 24 hr tablet, 300 mg PO QAM 05/22/23 11/05/23 extended release celecoxib 100 mg capsule 100 mg PO DAILY PRN Pain 05/22/23 11/05/23 cyclobenzaprine 10 mg tablet 10 mg PO BID PRN muscle spasm 05/22/23 11/05/23 duloxetine 30 mg capsule,delayed 30 mg PO QAM 05/22/23 11/05/23 release metoclopramide HCl 5 mg tablet 5 mg PO TID PRN Dyspepsia 05/22/23 11/05/23 sucralfate 100 mg/mL oral 10 ml PO TID PRN Dyspepsia 05/22/23 11/05/23 suspension sumatriptan succinate 50 mg tablet 100 mg PO UD PRN migraines 05/22/23 11/05/23 valacyclovir 1 gram tablet 2,000 mg PO Q12H PRN flare 05/22/23 11/05/23 Previous Rx's Medication Instructions Recorded acetaminophen 500 mg tablet 1,000 mg (2 x 500 mg) PO Q8H #60 05/25/23 (Tylenol Extra Strength) tabs docusate sodium 100 mg tablet 100 mg PO BID PRN Constipation #20 05/25/23 tabs ibuprofen 400 mg tablet 400 mg PO Q6H PRN pain #30 tabs 05/25/23 polyethylene glycol 3350 17 gram 17 g PO DAILY #14 ea 05/25/23 oral powder packet (Miralax) naproxen 500 mg tablet 500 mg PO BID PRN pain #20 tabs 08/26/23 oxycodone 5 mg tablet 5 mg PO Q6H PRN pain #30 tabs 11/05/23 oxycodone 5 mg tablet 5 mg PO Q6H PRN pain #30 tabs 11/10/23 Results & Data (ED) Vital Signs Vital Signs - 24 hr 11/11/23 20:01 11/12/23 00:43 11/12/23 00:52 Temperature 37.2 C Temperature Source Temporal Artery Scan Pulse Rate 120 H 83 Pulse Rate [Finger] 94 H Pulse Rate from SpO2 Sensor Respiratory Rate 19 18 Respiratory Effort / Characteristics Non-Labored Spontaneous Respiratory Depth Normal Respiratory Pattern Regular Blood Pressure 136/89 Blood Pressure [Left Arm] 131/92 Blood Pressure Mean 104 Blood Pressure Mean [Left Arm] 105 Pulse Oximetry 98 98 Oxygen Delivery Method Room Air Room Air Sepsis Recent Fever Within 48 Hours No Sepsis New/Unexplained Change in Mental Status No Sepsis Action Taken by Nursing No Action Required 11/12/23 00:53 11/12/23 01:00 11/12/23 01:01 Temperature Temperature Source Pulse Rate 83 83 Pulse Rate [Finger] Pulse Rate from SpO2 Sensor 83 86 Respiratory Rate 17 19 Respiratory Effort / Characteristics Respiratory Depth Respiratory Pattern Blood Pressure 130/91 Blood Pressure [Left Arm] Blood Pressure Mean 94 Blood Pressure Mean [Left Arm] Pulse Oximetry 98 96 Oxygen Delivery Method Sepsis Recent Fever Within 48 Hours Sepsis New/Unexplained Change in Mental Status Sepsis Action Taken by Nursing 11/12/23 01:01 11/12/23 01:30 11/12/23 01:30 Temperature Temperature Source Pulse Rate 96 H 75 Pulse Rate [Finger] Pulse Rate from SpO2 Sensor 91 H 77 Respiratory Rate 33 H Respiratory Effort / Characteristics Respiratory Depth Respiratory Pattern Blood Pressure 119/85 Blood Pressure [Left Arm] Blood Pressure Mean 104 Blood Pressure Mean [Left Arm] Pulse Oximetry 98 97 Oxygen Delivery Method Sepsis Recent Fever Within 48 Hours Sepsis New/Unexplained Change in Mental Status Sepsis Action Taken by Nursing 11/12/23 02:00 11/12/23 02:00 11/12/23 02:30 Temperature Temperature Source Pulse Rate 76 76 Pulse Rate [Finger] Pulse Rate from SpO2 Sensor 76 75 Respiratory Rate 15 16 Respiratory Effort / Characteristics Respiratory Depth Respiratory Pattern Blood Pressure 135/81 Blood Pressure [Left Arm] Blood Pressure Mean 105 Blood Pressure Mean [Left Arm] Pulse Oximetry 93 94 Oxygen Delivery Method Sepsis Recent Fever Within 48 Hours Sepsis New/Unexplained Change in Mental Status Sepsis Action Taken by Nursing 11/12/23 02:30 11/12/23 03:00 Temperature Temperature Source Pulse Rate 76 Pulse Rate [Finger] Pulse Rate from SpO2 Sensor 76 Respiratory Rate 21 Respiratory Effort / Characteristics Respiratory Depth Respiratory Pattern Blood Pressure 137/82 Blood Pressure [Left Arm] Blood Pressure Mean 106 Blood Pressure Mean [Left Arm] Pulse Oximetry 98 Oxygen Delivery Method Sepsis Recent Fever Within 48 Hours Sepsis New/Unexplained Change in Mental Status Sepsis Action Taken by Nursing Laboratory Data 11/11/23 21:13 11/11/23 21:13 Lab Results 11/11/23 11/11/23 Range/Units 21:10 21:13 WBC 11.77 H (4.8-10.8) K/ul RBC 4.73 (4.20-5.40) M/uL Hgb 13.7 (12.0-16.0) g/dl Hct 42.2 (37.0-47.0) % MCV 89.2 (80.0-100.0) fL MCH 29.0 (25.0-34.0) pg MCHC 32.5 (32.0-36.0) g/dL RDW Std Deviation 39.3 (36.4-46.3) fL RDW Coeff of Rm 12.0 (11.5-14.5) % Plt Count 308 (130-400) K/uL MPV 9.7 (9.4-12.4) fL Immature Gran % (Auto) 2.0 % Neut % (Auto) 67.0 % Lymph % (Auto) 18.5 % [place] % (Auto) 6.5 % Eos % (Auto) 5.2 % Baso % (Auto) 0.8 % Neut # (Auto) 7.89 H (1.40-6.50) K/uL Lymph # (Auto) 2.18 (1.20-3.40) K/uL [place] # (Auto) 0.76 H (0.11-0.59) K/uL Eos # (Auto) 0.61 H (0.00-0.50) K/uL Baso # (Auto) 0.09 (0.00-0.20) K/uL Immature Gran # (Auto) 0.24 H (0.01-0.20) K/uL Sodium 138 (136-145) mmol/L Potassium 3.6 (3.5-5.1) mmol/L Chloride 101 (98-107) mmol/L Carbon Dioxide 30 (21-32) mmol/L Anion Gap 7 (3-11) BUN 15 (6-23) mg/dl Creatinine 1.04 (0.6-1.2) mg/dl Est Cr Clr Drug Dosing 83.9 ml/min Est GFR ( Amer) 75.1 ml/min Est GFR (Non-Af Amer) 64.8 ml/min BUN/Creatinine Ratio 14.4 (10-20) Glucose 72 (70-99(Fasting)) mg/dl Calcium 9.1 (8.6-10.3) mg/dl Total Bilirubin 0.5 (0.2-1.0) mg/dl AST 24 (13-39) U/L ALT 37 (7-52) U/L Alkaline Phosphatase 70 (34-104) U/L Total Protein 7.5 (6.0-8.3) gm/dl Albumin 4.0 (3.4-5.0) gm/dl Globulin 3.5 (2.5-4.0) gm/dl Albumin/Globulin Ratio 1.1 (0.9-2) Urine Color Yellow Urine Appearance Clear (Clear) Urine pH 5.0 (4.5-7.5) Ur Specific [place] 1.018 (1.000-1.030) Urine Protein Negative (Negative) Urine Glucose (UA) Negative (Negative) Urine Ketones Negative (Negative) Urine Blood Negative (Negative) Urine Nitrite Negative (Negative) Urine Bilirubin Negative (Negative) Urine Urobilinogen Negative (Negative) Ur Leukocyte Esterase Negative (Negative) Urine Opiates Screen Neg (Neg) Ur Methadone, Qual Neg (Neg) Urine Barbiturates Neg (Neg) Ur Phencyclidine (PCP) Neg (Neg) U Amphetamin/Meth Scrn Neg (Neg) MDMA (Ecstasy) Screen Neg (Neg) U Benzodiazepines Scrn Neg (Neg) Ur Cocaine Metabolite Neg (Neg) U Marijuana (THC) Screen Pos H (Neg) Administered Medications Bupropion HCl (Bupropion Xl 300 Mg Tabcr) [facility] Stop: 12/12/23 08:59 Last Admin: 11/12/23 07:53 Dose: 300 mg Documented By: HS Duloxetine HCl (Duloxetine Hcl 60 Mg Cap) 60 [facility] Stop: 12/12/23 08:59 Last Admin: 11/12/23 07:53 Dose: 60 mg Documented By: HS Duloxetine HCl (Duloxetine Hcl 30 Mg Cap) 30 mg PO [facility] Stop: 12/12/23 08:59 Last Admin: 11/12/23 07:53 Dose: 30 mg Documented By: MARILY Hydromorphone HCl (Hydromorphone Inj 0.5 Mg/0.5 Ml Syr) 0.5 mg IV Q3H PRN PRN Reason: MOD pain (scale 4-6) & Pre PT Stop: 11/26/23 04:21 Last Admin: 11/12/23 07:53 Dose: 0.5 mg Documented By: MARILY Hydromorphone HCl (Hydromorphone Inj 1 Mg/Ml Syringe) 1 mg IV Q3H PRN PRN Reason: severe pain (scale 7-10) Stop: 11/26/23 04:21 Last Admin: 11/12/23 05:33 Dose: 1 mg Documented By: HUSSEIN Sodium Chloride (Nss) 1,000 mls @ 125 mls/hr IV .Q8H ON LICENSE OF [facility] Stop: 12/12/23 03:44 Last Admin: 11/12/23 04:03 Dose: 125 mls/hr Documented By: HUSSEIN Lactated Ringer's (Lr) 1,000 mls @ 75 mls/hr IV .[id number] ON LICENSE OF [facility] Stop: 12/12/23 04:21 Last Admin: 11/12/23 05:33 Dose: 75 mls/hr Documented By: HUSSEIN Pantoprazole Sodium (Pantoprazole 40 Mg Tab) 40 mg PO [facility] Stop: 12/12/23 08:59 Last Admin: 11/12/23 07:52 Dose: 40 mg Documented By: MARILY Discontinued Medications Sodium Chloride (Nss) 500 mls @ 999 mls/hr IV .Q31M ONE Stop: 11/12/23 01:47 Last Infusion: 11/12/23 02:15 Dose: Infused Documented By: Admin: 11/12/23 01:44 Dose: 999 mls/hr Documented By: HUSSEIN Acetaminophen (Ofirmev) 1,000 mg in 100 mls @ 400 mls/hr IV NOW STA Stop: 11/12/23 01:31 Last Infusion: 11/12/23 02:15 Dose: Infused Documented By: Admin: 11/12/23 01:43 Dose: 400 mls/hr Documented By: HUSSEIN Ketorolac Tromethamine (Ketorolac 30 Mg/Ml Vial) 30 mg IV NOW STA Stop: 11/11/23 20:04 Last Admin: 11/11/23 21:15 Dose: 30 mg Documented By: KYLEE Ketorolac Tromethamine (Ketorolac Tromethamine 15 Mg/Ml Vial) 10 mg IV NOW ONE Stop: 11/12/23 03:32 Last Admin: 11/12/23 04:03 Dose: 10 mg Documented By: HUSSEIN Morphine Sulfate (Morphine Sulfate 4 Mg/Ml 1 Ml Carp\\Vial) 4 mg IV NOW STA Stop: 11/12/23 01:18 Last Admin: 11/12/23 01:41 Dose: 4 mg Documented By: HUSSEIN Morphine Sulfate (Morphine Sulfate 4 Mg/Ml 1 Ml Carp\\Vial) 4 mg IV NOW STA Stop: 11/12/23 02:55 Last Admin: 11/12/23 03:02 Dose: 4 mg Documented By: HUSSEIN Imaging Data Radiologist's Impression: Abdomen/Pelvis CT 11/12/23 01:18 CT SCAN OF THE ABDOMEN AND PELVIS WITHOUT IV CONTRAST CLINICAL HISTORY: Left flank pain. COMPARISON STUDY: Abdominal CT dated 08/25/2023. TECHNIQUE: CT scan of the abdomen and pelvis is performed from the lung bases to the proximal femora. Images are reviewed in the axial, sagittal, and coronal planes. IV contrast was not administered for this examination. A dose lowering technique was utilized adhering to the principles of ALARA. CT DOSE: 1404.77 mGy.cm FINDINGS: Lung bases: The heart is normal in size and without pericardial effusion. The lung bases are clear. Liver: The unenhanced liver is normal in size, contour, and attenuation. There is no intrahepatic biliary ductal dilatation. Gallbladder: Surgically absent noting clips in the gallbladder fossa. Spleen: Normal in size and attenuation. Pancreas: Unremarkable. Adrenal glands: Unremarkable. Kidneys: The unenhanced kidneys are normal in size and without hydronephrosis. No renal calculi are identified and there is no ureteral stone. There is no evidence of contour deforming renal mass lesion. Abdominal vasculature: The abdominal aorta is normal in course and caliber. Bowel: There is no bowel obstruction. The appendix is well-visualized and normal. Peritoneum: There is no intraperitoneal free air or abdominal ascites. There is a fat-containing umbilical hernia. Lymphadenopathy: None. Pelvic viscera: The bladder is mildly distended but otherwise normal in appearance. The uterus is surgically absent. No adnexal lesion is seen. Skeletal structures: There is mild lumbosacral spondylosis, with postsurgical change from L5-S1 spinal fusion. Lucency around the left interpedicular screw in S1 suggests loosening. No lytic or blastic lesions are seen. A neurostimulator device is present in the right supragluteal tissues. Leads enter the central canal in the lower thoracic region. IMPRESSION: No acute infectious or inflammatory findings are identified in the abdomen or pelvis. ACT 112: Negative or not required by law. Electronically signed by: Robinson Carpenter M.D. 11/12/2023 6:55 AM Discharge Plan Visit Data Chief Complaint: Back Injury/Pain Stated Complaint: BACK PAIN, POST SURG ED Provider: Jessica Aguirre Discharge Problem: Acute left flank pain, Status post surgery, Paresthesia Discharge Instructions Interventions: ED Discharge Assessment Last Done: 11/12/23 04:22
[2023-11-12] MEDS ORDERED: KETOROLAC TROMETHAMINE 15 MG/ML VIAL IV ONE (03:31)
[2023-11-12] MEDS: SODIUM CHLORIDE 0.9% 1,000 ML IV SCH ×3 (04:03→20:54)
[2023-11-12] MEDS ORDERED: METOCLOPRAMIDE HCL INJ 5 MG/ML 2 ML VIAL IV PRN (04:22)
[2023-11-12] MEDS ORDERED: NALOXONE HCL 0.4 MG/1 ML VIAL/CARP IV PRN (04:22)
[2023-11-12] MEDS ORDERED: LORazepam 0.5 MG in SYRINGE 0.25 ML IV PRN (04:22)
[2023-11-12] MEDS ORDERED: PROMETHAZINE HCL 12.5 MG in SODIUM CHLORIDE 0.9% 50 ML IV PRN (04:22)
[2023-11-12] MEDS ORDERED: ACETAMINOPHEN 500 MG TAB PO PRN (04:22)
[2023-11-12] MEDS ORDERED: ACETAMINOPHEN 1,000 MG/100 ML VIAL IV PRN (04:22)
[2023-11-12] MEDS ORDERED: ONDANSETRON INJ 2 MG/ML 2 ML VIAL IV PRN (04:22)
[2023-11-12] MEDS ORDERED: ONDANSETRON 4 MG OD TAB PO PRN (04:22)
[2023-11-12] MEDS: LACTATED RINGER'S 1,000 ML IV SCH ×2 (05:33→20:53)
[2023-11-12] MEDS: HYDROmorphone INJ 1 MG/ML SYRINGE IV PRN ×2 (05:33→20:51)
--- NOTE | 2023-11-12 06:57 | CT Scan Report ---
CT SCAN OF THE ABDOMEN AND PELVIS WITHOUT IV CONTRAST CLINICAL HISTORY: Left flank pain. COMPARISON STUDY: Abdominal CT dated 08/25/2023. TECHNIQUE: CT scan of the abdomen and pelvis is performed from the lung bases to the proximal femora. Images are reviewed in the axial, sagittal, and coronal planes. IV contrast was not administered for this examination. A dose lowering technique was utilized adhering to the principles of ALARA. CT DOSE: 1404.77 mGy.cm FINDINGS: Lung bases: The heart is normal in size and without pericardial effusion. The lung bases are clear. Liver: The unenhanced liver is normal in size, contour, and attenuation. There is no intrahepatic marnie iary ductal dilatation. Gallbladder: Surgically absent noting clips in the gallbladder fossa. Spleen: Normal in size and attenuation. Pancreas: Unremarkable. Adrenal glands: Unremarkable. Kidneys: The unenhanced kidneys are normal in size and without hydronephrosis. No renal calculi are i dentified and there is no ureteral stone. There is no evidence of contour deforming renal mass lesion . Abdominal vasculature: The abdominal aorta is normal in course and caliber. Bowel: There is no bowel obstruction. The appendix is well-visualized and normal. Peritoneum: There is no intraperitoneal free air or abdominal ascites. There is a fat-containing umbi lical hernia. Lymphadenopathy: None. Pelvic viscera: The bladder is mildly distended but otherwise normal in appearance. The uterus is claude gically absent. No adnexal lesion is seen. Skeletal structures: There is mild lumbosacral spondylosis, with postsurgical change from L5-S1 spina l fusion. Lucency around the left interpedicular screw in S1 suggests loosening. No lytic or blastic lesions are seen. A neurostimulator device is present in the right supragluteal tissues. Leads enter the central canal in the lower thoracic region. IMPRESSION: No acute infectious or inflammatory findings are identified in the abdomen or pelvis. ACT 112: Negative or not required by law. Electronically signed by: Robinson Carpenter M.D. 11/12/2023 6:55 AM
[2023-11-12] MEDS: PANTOprazole 40 MG TAB PO SCH (07:52)
[2023-11-12] MEDS: buPROPion XL 300 MG TABCR PO SCH (07:53)
[2023-11-12] MEDS: DULoxetine HCL 60 MG CAP PO SCH (07:53)
[2023-11-12] MEDS: DULoxetine HCL 30 MG CAP PO SCH (07:53)
[2023-11-12] MEDS: HYDROmorphone INJ 0.5 MG/0.5 ML SYR IV PRN ×3 (07:53→16:10)
--- NOTE | 2023-11-12 10:05 | History & Physical Report ---
Date of Service November 12, 2023 Assessment & Plan (1) Status post surgery: Plan: Assessment status post spinal cord stimulator placement. Plan at this time she is struggling with significant back pain. We will contact the spinal cord stimulator non destructive evaluation technician to help adjust her paddle. She will be admitted for pain control and we will hopefully be able to mobilize her and discharge home soon. Admission and Anticipated Discharge Date Admission Date: November 12, 2023 History of Present Illness Chief Complaint: Severe back pain Primary Care Provider: Tiny Brownlee DO This is a 43-year-old female who presents late last evening with worsening back pain and paresthesias in her legs. Symptoms were uncontrolled subsequently admitted her for observation and treatment. Allergies Allergy/AdvReac Type Severity Reaction Status Date / Time tramadol AdvReac Mild "Did not Verified 11/05/23 08:15 help" with pain Home Medications Medication Instructions Recorded Confirmed Type hydroxyzine HCl 25 mg tablet 25 mg PO Q6H PRN Anxiety 04/25/20 11/12/23 History omeprazole 40 mg capsule,delayed 40 mg PO QAM 04/25/20 11/12/23 History release loratadine 10 mg tablet 10 mg PO QAM 12/03/20 11/12/23 History promethazine 25 mg tablet 25 mg PO Q6H PRN Nausea And 12/03/20 11/12/23 History Vomiting Medical Marijuana 1 dose PO HS sleep 05/16/21 11/12/23 History sennosides 8.6 mg tablet (Senokot) 8.6 mg PO HS PRN Constipation 09/21/21 11/12/23 History duloxetine 60 mg capsule,delayed 60 mg PO QAM 02/18/22 11/12/23 History release acidophilus 100 million 1 cap PO QAM 05/22/23 11/12/23 History cell-pectin, citrus 10 mg capsule ascorbic acid (vitamin C) 500 mg 500 mg PO QAM 05/22/23 11/12/23 History tablet bupropion HCl 300 mg 24 hr tablet, 300 mg PO QAM 05/22/23 11/12/23 History extended release celecoxib 100 mg capsule 100 mg PO DAILY PRN Pain 05/22/23 11/12/23 History cyclobenzaprine 10 mg tablet 10 mg PO BID PRN muscle spasm 05/22/23 11/12/23 History duloxetine 30 mg capsule,delayed 30 mg PO QAM 05/22/23 11/12/23 History release metoclopramide HCl 5 mg tablet 5 mg PO TID PRN Dyspepsia 05/22/23 11/12/23 History sumatriptan succinate 50 mg tablet 100 mg PO UD PRN migraines 05/22/23 11/12/23 History valacyclovir 1 gram tablet 2,000 mg PO Q12H PRN flare 05/22/23 11/12/23 History acetaminophen 500 mg tablet 1,000 mg (2 x 500 mg) PO Q8H #60 05/25/23 11/12/23 Rx (Tylenol Extra Strength) tabs docusate sodium 100 mg tablet 100 mg PO BID PRN Constipation #20 05/25/23 11/12/23 Rx tabs ibuprofen 400 mg tablet 400 mg PO Q6H PRN pain #30 tabs 05/25/23 11/12/23 Rx polyethylene glycol 3350 17 gram 17 g PO DAILY #14 ea 05/25/23 11/12/23 Rx oral powder packet (Miralax) naproxen 500 mg tablet 500 mg PO BID PRN pain #20 tabs 08/26/23 11/12/23 Rx oxycodone 5 mg tablet 5 mg PO Q6H PRN pain #30 tabs 11/05/23 11/12/23 Rx Past Med/Surg History Medical History Refusal of blood transfusions as patient is Nondenominational Hx of chest pain 05/2023, seen in [facility], ~1 week post-op from cervical spine sx.; no cardiac findings, "thought to be from post-op pain, no signs of pulmonary embolism either" Spinal stenosis Arthritis History of skin cancer removed Anxiety and depression Pulmonary embolism 2014- ? r/t control, was on blood thinner for short period of time GERD (gastroesophageal reflux disease) controlled, stable per pt Degenerative disc disease Lumbar Fibromyalgia Migraine Surgical History Hx of cervical spine surgery ~05/2023 History of sinus surgery Closure of Large Oral Sinus Opening, Left Sinus [place] (2020, [place]) H/O exploratory laparotomy History of tooth extraction History of esophagogastroduodenoscopy (EGD) History of colonoscopy History of knee surgery Left knee x2 (open + arthroscopic, 1997) Hx of shoulder surgery Right History of cholecystectomy S/P lumbar spinal fusion 2017, 2018 S/P laparoscopic hysterectomy 2016 (ovaries remain) Family History Grandfather Family history of diabetes mellitus Grandmother Family history of diabetes mellitus Grandmother Family hx of colon cancer Grandmother (Maternal) Diabetes Colorectal cancer Father Heart disease Mother Hypertension Uncle Stroke Other Cancer Gall bladder disease Lung disease No family history of adverse response to anesthesia Social History Smoking Status: Never smoker Second Hand Exposure: No; Do You Dip or Chew Tobacco: No; Hx Alcohol Use: Yes Alcohol type: wine Alcohol Intake Frequency: Monthly or Less Hx Substance Use: Yes (medical card) Last Used Substance Other:: uses nightly to help with sleep-advised Substance Use Type Other:: liquid tincture under tongue Preferred Language: Tajik Communication Ability: Effective Visual Impairment: No Limitations Escrow Officer Required: No Beliefs That Will Affect Care: Zoroastrianism Zoroastrianism Beliefs: Mosque- no blood products 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 She is able to stand on her own volition. She can stand on toes and heels. The incisions are healing appropriately. There is significant tenderness palpation of the left paravertebral musculature and quadratus lumborum. Sensory is intact to lower extremities. Results & Data Results & Data Vital Signs (Past 12 Hours) Vital Signs Pulse Pulse Resp BP BP Pulse Ox O2 Del Method 11/12/23 08:00 132/101 H 11/12/23 08:00 77 23 97 11/12/23 07:30 70 14 97 11/12/23 07:01 77 11/12/23 07:00 74 15 97 11/12/23 06:30 71 15 96 11/12/23 06:00 148/85 H 11/12/23 06:00 97 Nasal Cannula 11/12/23 05:00 131/77 11/12/23 05:00 80 18 92 11/12/23 04:30 72 20 93 11/12/23 04:30 134/78 11/12/23 04:00 76 17 93 11/12/23 04:00 137/84 11/12/23 03:33 120 H 25 H 11/12/23 03:00 76 21 98 11/12/23 02:30 137/82 11/12/23 02:30 76 16 94 11/12/23 02:00 135/81 11/12/23 02:00 76 15 93 11/12/23 01:30 75 97 11/12/23 01:30 119/85 11/12/23 01:01 96 H 33 H 98 11/12/23 01:01 130/91 11/12/23 01:00 83 19 96 11/12/23 00:53 83 17 98 11/12/23 00:52 83 11/12/23 00:43 94 H 18 131/92 98 Room Air FiO2 11/12/23 08:00 11/12/23 08:00 11/12/23 07:30 11/12/23 07:01 11/12/23 07:00 11/12/23 06:30 11/12/23 06:00 11/12/23 06:00 3 11/12/23 05:00 11/12/23 05:00 11/12/23 04:30 11/12/23 04:30 11/12/23 04:00 11/12/23 04:00 11/12/23 03:33 11/12/23 03:00 11/12/23 02:30 11/12/23 02:30 11/12/23 02:00 11/12/23 02:00 11/12/23 01:30 11/12/23 01:30 11/12/23 01:01 11/12/23 01:01 11/12/23 01:00 11/12/23 00:53 11/12/23 00:52 11/12/23 00:43 Code Status & VTE Plan VTE Prophylaxis Plan VTE Prophylaxis will be ordered: Yes
[2023-11-12] MEDS: oxyCODONE HCL IR 5 MG TAB (IMMEDIATE RELEASE) PO PRN (23:20)
[2023-11-13] MEDS: LORazepam 0.5 MG TAB PO PRN ×2 (00:28→23:31)
[2023-11-13] MEDS: HYDROmorphone INJ 1 MG/ML SYRINGE IV PRN ×6 (01:39→23:31)
[2023-11-13] MEDS: hydrOXYzine HCl 25 MG TAB PO PRN ×2 (04:53→20:58)
[2023-11-13] MEDS: oxyCODONE HCL IR 5 MG TAB (IMMEDIATE RELEASE) PO PRN ×2 (06:30→10:31)
--- NOTE | 2023-11-13 08:28 | Orthopedic Progress Note ---
Date of Service November 13, 2023 Assessment & Plan (1) Postoperative pain: Plan: At this point she is still struggling with pain control. I would like to get her up and moving with physical therapy today. I think movement will be helpful in terms of relieving some of the spasm that she is getting. Will continue with GI DVT prophylaxis as well as pain control measures. Hopefully her pain will settle down over the next 24 hours and be able to get her home tomorrow. Admission and Anticipated Discharge Date Admission Date: November 12, 2023 Subjective Patient was seen bedside in room 355. She is approximately 7 days status post implantation of permanent dorsal column stimulator. She still is having significant pain in the lower portion of her back with spasm. She had an episode last night where she could barely move. The company sales and service representative from her stimulator did come in to make adjustments yesterday and seem to get better coverage. She still is requiring narcotic pain medication. She has been up and moving minimally. She denies any other numbness, tingling, or paresthesias Physical Exam Physical Exam: On exam she is alert and oriented. She appears uncomfortable. The incisions are benign. Her abdomen soft and nontender calves are supple and nontender. Her strength and sensation are both intact. Results & Data Vital Signs (Past 12 Hours) Vital Signs Temp Pulse Resp BP Pulse Ox O2 Del Method O2 Flow Rate 11/13/23 06:54 36.6 C 86 18 136/85 96 Nasal Cannula 2 11/12/23 20:51 Room Air
[2023-11-13] MEDS: buPROPion XL 300 MG TABCR PO SCH (09:32)
[2023-11-13] MEDS: DULoxetine HCL 60 MG CAP PO SCH (09:32)
[2023-11-13] MEDS: DULoxetine HCL 30 MG CAP PO SCH (09:32)
[2023-11-13] MEDS: PANTOprazole 40 MG TAB PO SCH (09:32)
[2023-11-13] MEDS: CYCLOBENZAPRINE HCL 10 MG TAB PO PRN ×2 (10:25→20:50)
[2023-11-13] MEDS: LACTATED RINGER'S 1,000 ML IV SCH ×2 (10:25→21:02)
[2023-11-13] MEDS: LIDOCAINE 5% 1 PATCH TD SCH (15:32)
[2023-11-13] MEDS: KETOROLAC 30 MG/ML VIAL IV PRN (16:24)
[2023-11-14] MEDS: CYCLOBENZAPRINE HCL 10 MG TAB PO PRN ×2 (02:54→09:20)
[2023-11-14] MEDS: hydrOXYzine HCl 25 MG TAB PO PRN ×2 (02:54→09:20)
[2023-11-14] MEDS: HYDROmorphone INJ 0.5 MG/0.5 ML SYR IV PRN (06:14)
[2023-11-14] MEDS: KETOROLAC 30 MG/ML VIAL IV PRN (06:14)
--- NOTE | 2023-11-14 08:06 | Orthopedic Progress Note ---
Date of Service November 14, 2023 Assessment & Plan (1) Acute left flank pain: Plan: Patient is still having bouts of intractable left flank pain. It is not clear what the etiology of this is. Her CT scan was pretty benign in terms of any stones around the kidneys or any kidney issues. Will consult medicine to make sure there is no other metabolic issues that we are not addressing. Will continue with pain control measures and DVT and GI prophylaxis. Will see how she does today and hopefully discharge her tomorrow. Admission and Anticipated Discharge Date Admission Date: November 12, 2023 Subjective Patient was seen bedside in room 354. She continues to have colicky flank pain on the contralateral side from the area of her stimulator generator. The pain is not there all the time but will grab her to the point where she states the pain is 10 out of 10. She was seen by physical therapy yesterday and ambulated just using her IV pole. She was requiring narcotic pain medication. We did give her dose of Toradol yesterday which seemed to help to a degree. She is not having any tadeo radicular complaints. She denies any weakness in her legs. She denies any other numbness, tingling, or paresthesias. She denies any dysuria. Physical Exam Physical Exam: On exam she is alert and oriented. Her incisions are benign. She is nontender to palpation. Her strength and sensation are both intact her gait was not observed. Results & Data Vital Signs (Past 12 Hours) Vital Signs Temp Pulse Resp BP Pulse Ox O2 Del Method O2 Flow Rate 11/13/23 22:00 36.6 C 86 18 131/87 99 Nasal Cannula 2
[2023-11-14] MEDS: DULoxetine HCL 30 MG CAP PO SCH (09:20)
[2023-11-14] MEDS: oxyCODONE HCL IR 5 MG TAB (IMMEDIATE RELEASE) PO PRN (09:20)
[2023-11-14] MEDS: PANTOprazole 40 MG TAB PO SCH ×2 (09:20→21:27)
[2023-11-14] MEDS: LIDOCAINE 5% 1 PATCH TD SCH (09:20)
[2023-11-14] MEDS: buPROPion XL 300 MG TABCR PO SCH (09:20)
[2023-11-14] MEDS: DULoxetine HCL 60 MG CAP PO SCH (09:20)
[2023-11-14 09:35] LABS: Hematocrit (blood only) 34.3 % (37.0-47.0); Mean Corpuscular Hemoglobin 28.2 pg (25.0-34.0); Mean Corpuscular Hgb Conc 32.1 g/dL (32.0-36.0); Mean Corpuscular Volume 87.9 fL (80.0-100.0); Mean Platelet Volume 9.3 fL (9.4-12.4); Platelet Count 217 K/uL (130-400); RDW Coefficient of Variation 12.2 % (11.5-14.5); White Blood Count 5.29 K/ul (4.8-10.8)
[2023-11-14 09:48] LABS: Albumin Globulin Ratio 1.3 (0.9-2); Albumin Level 3.4 gm/dl (3.4-5.0); BUN Creatinine Ratio 12.8 (10-20); Bilirubin,Total 0.4 mg/dl (0.2-1.0); Calcium 8.3 mg/dl (8.6-10.3); Creatinine Clr Calc Pharmacy 101.4 ml/min; Est GFR (African American) 94.6 ml/min; Est GFR (Non-African American) 81.6 ml/min; Globulin 2.6 gm/dl (2.5-4.0); Phosphorus 3.3 mg/dl (2.5-4.9); Potassium 3.7 mmol/L (3.5-5.1)
[2023-11-14] MEDS: HYDROmorphone INJ 1 MG/ML SYRINGE IV PRN ×3 (10:28→19:44)
[2023-11-14] MEDS: LACTATED RINGER'S 1,000 ML IV SCH ×2 (10:31→22:30)
--- NOTE | 2023-11-14 10:32 | Hospitalist Consultation ---
Date of Consultation November 14, 2023 Assessment & Plan (1) Postoperative back pain: (2) Postlaminectomy syndrome of lumbar region: (3) Acute left flank pain: (4) Depression: (5) Fibromyalgia: (6) GERD (gastroesophageal reflux disease): Plan This is a 43-year-old female with PMH of GERD, fibromyalgia, depression, anxiety, history of PE, recent spinal cord stimulator surgery on 11/05/2023 and was admitted on 11/11 for worsening back pain and paresthesias in her legs. S/p spinal cord stimulator Left lower back pain S/p spinal cord stimulator surgery on 11/05/[address] Beckham Continues to have contralateral left lower back pain with radiation to flank No radicular symptoms in BLE CT abd/pelvis from 11/12 - no acute infectious or inflammatory findings are identified in the abdomen or pelvis No evidence of renal stones or hydro, no bowel obstruction Afebrile, VSS, no leukocytosis, lipase WNL, UA normal, LFTs WNL Obtained blood cultures given recent procedure but no signs, sx to warrant empiric abx at this time, cont. to monitor closely Scheduled Toradol, flexeril, lidocaine patch, heat to left lower back Repeat labs in AM Depression Fibromyalgia Continue SNRI GERD Continue protonix DVT Ppx: TEDs per primary service Code status: FULL Patient seen in collaboration with Dr. Reis. Please see addendum. Thank you for this consultation. We will follow the patient with you during their hospital stay. You can reach a member of the [facility] Team 07/06 via [employer]. Supervising Physician Co-Signing Physician Notes 43-year-old lady with PMH of GERD, fibromyalgia, depression, anxiety, PE, recent spinal cord stimulator placement on 11/05/2023 was admitted for worsening back pain was seen and examined at bedside. Operative site looks clean, no signs of infection. Left lower back tenderness and spasms noted. Lidocaine patch, heat compression when off lidocaine patch, [id number] NSAIDs, [id number] antispasmodic, will follow. Infectious workup so far negative, continue to follow. Continue other home medications as and when able. CT abdomen pelvis negative for infection. GENERAL: Alert and oriented x3. NAD, on RA. HEENT: No pallor, no icterus. Pupils equal, round and reactive to light. Oral mucosa moist. NECK: No JVD, no neck masses. HEART: S1 and S2 heard. Regular rate and rhythm. No murmur, no gallop. RESPIRATORY SYSTEM: Normal AP diameter. No accessory muscle use. No wheezing, no crackles. ABDOMEN: Soft, bowel sounds present, nontender, no distention. CENTRAL NERVOUS SYSTEM: No facial droop. Speech is clear. Obeys simple commands. Moves extremities. EXTREMITIES: No edema, no erythema seen. Low back: Spinal cord stimulator placement operative site clean incision/healthy-appearing. Left lower background investigator antispasmodic on exam. No signs of infection. I have seen and examined the patient and have discussed the case with the provider above. I agree with the assessment and plan as stated. History of Present Illness Reason for Consultation: flank pain Attending Physician: Yaniv Beckham, DO History of Present Illness This is a 43-year-old female with PMH of GERD, fibromyalgia, depression, anxiety, history of PE, recent spinal cord stimulator surgery on 11/05/2023 and was admitted yesterday for worsening back pain and paresthesias in her legs. [facility] has been managing with narcotic pain medication, Toradol. No longer having tadeo radicular pain today per surgical service but continues to have colicky flank pain on the contralateral side from the area of her stimulator generator. Pain feels colicky in nature and is exacerbated by movement. Has waves where pain is very intense and then subsides to more of a dull ache, but she is always aware of the discomfort. Denies any history with kidney stones. No dysuria, hematuria or changes to urinary habits. Has been having normal bowel movement since surgery. No fever, chills, lightheadedness, chest pain, shortness of breath, nausea, vomiting, abdominal pain, diarrhea or constipation. Uses Flexeril twice a day as needed at home as well as ibuprofen. Also uses medical marijuana for pain control. [place] that dose of Toradol today was helpful. Allergies Allergy/AdvReac Type Severity Reaction Status Date / Time tramadol AdvReac Mild "Did not Verified 11/05/23 08:15 help" with pain Home Medications Medication Instructions Recorded Confirmed Type hydroxyzine HCl 25 mg tablet 25 mg PO Q6H PRN Anxiety 04/25/20 11/12/23 History omeprazole 40 mg capsule,delayed 40 mg PO BID 04/25/20 11/14/23 History release loratadine 10 mg tablet 10 mg PO QAM 12/03/20 11/12/23 History promethazine 25 mg tablet 25 mg PO Q6H PRN Nausea And 12/03/20 11/12/23 History Vomiting Medical Marijuana 1 dose PO HS sleep 05/16/21 11/12/23 History sennosides 8.6 mg tablet (Senokot) 8.6 mg PO HS PRN Constipation 09/21/21 11/12/23 History duloxetine 60 mg capsule,delayed 60 mg PO QAM 02/18/22 11/12/23 History release acidophilus 100 million 1 cap PO QAM 05/22/23 11/12/23 History cell-pectin, citrus 10 mg capsule ascorbic acid (vitamin C) 500 mg 500 mg PO QAM 05/22/23 11/12/23 History tablet bupropion HCl 300 mg 24 hr tablet, 300 mg PO QAM 05/22/23 11/12/23 History extended release celecoxib 100 mg capsule 100 mg PO DAILY PRN Pain 05/22/23 11/12/23 History cyclobenzaprine 10 mg tablet 10 mg PO BID PRN muscle spasm 05/22/23 11/12/23 History duloxetine 30 mg capsule,delayed 30 mg PO QAM 05/22/23 11/12/23 History release metoclopramide HCl 5 mg tablet 5 mg PO TID PRN Dyspepsia 05/22/23 11/12/23 History sumatriptan succinate 50 mg tablet 100 mg PO UD PRN migraines 05/22/23 11/12/23 History valacyclovir 1 gram tablet 2,000 mg PO Q12H PRN flare 05/22/23 11/12/23 History acetaminophen 500 mg tablet 1,000 mg (2 x 500 mg) PO Q8H #60 05/25/23 11/12/23 Rx (Tylenol Extra Strength) tabs docusate sodium 100 mg tablet 100 mg PO BID PRN Constipation #20 05/25/23 11/12/23 Rx tabs ibuprofen 400 mg tablet 400 mg PO Q6H PRN pain #30 tabs 05/25/23 11/12/23 Rx polyethylene glycol 3350 17 gram 17 g PO DAILY #14 ea 05/25/23 11/12/23 Rx oral powder packet (Miralax) naproxen 500 mg tablet 500 mg PO BID PRN pain #20 tabs 08/26/23 11/12/23 Rx oxycodone 5 mg tablet 5 mg PO Q6H PRN pain #30 tabs 11/05/23 11/12/23 Rx oxycodone 5 mg tablet 5 mg PO Q6H PRN pain #14 tabs 11/12/23 Rx Patient History Medical History Refusal of blood transfusions as patient is Nondenominational Hx of chest pain 05/2023, seen in [facility] [facility], ~1 week post-op from cervical spine sx.; no cardiac findings, "thought to be from post-op pain, no signs of pulmonary embolism either" Spinal stenosis Arthritis History of skin cancer removed Anxiety and depression Pulmonary embolism 2014- ? r/t control, was on blood thinner for short period of time GERD (gastroesophageal reflux disease) controlled, stable per pt Degenerative disc disease Lumbar Fibromyalgia Migraine Surgical History Hx of cervical spine surgery ~05/2023 History of sinus surgery Closure of Large Oral Sinus Opening, Left Sinus [place] (2020, [place]) H/O exploratory laparotomy History of tooth extraction History of esophagogastroduodenoscopy (EGD) History of colonoscopy History of knee surgery Left knee x2 (open + arthroscopic, 1997) Hx of shoulder surgery Right History of cholecystectomy S/P lumbar spinal fusion 2017, 2018 S/P laparoscopic hysterectomy 2016 (ovaries remain) Family History Grandfather Family history of diabetes mellitus Grandmother Family history of diabetes mellitus Grandmother Family hx of colon cancer Grandmother (Maternal) Diabetes Colorectal cancer Father Heart disease Mother Hypertension Uncle Stroke Other Cancer Gall bladder disease Lung disease No family history of adverse response to anesthesia Social History Smoking Status: Never smoker Second Hand Exposure: No; Do You Dip or Chew Tobacco: No; Tobacco Cessation Education Requested by Patient: No Hx Alcohol Use: Yes Alcohol type: wine Alcohol Intake Frequency: Monthly or Less Hx Substance Use: Yes Last Used Substance: Hours (ago) Last Used Substance Other:: Uses tincture under tongue nightly for sleep. Substance Use Type Other:: Medical Marijuana Card. Preferred Language: South African Communication Ability: Effective Visual Impairment: No Limitations Foam Fabricator Required: No Beliefs That Will Affect Care: Hoahaoism Hoahaoism Beliefs: Nondenominational. 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 Physical Exam Physical Exam: General Appearance: WD/WN, vitals as above, NAD, sitting up in bed, pleasant, conversing easily Head: normocephalic, atraumatic Eyes: normal inspection, PERRL ENT: external ear and nose normal, oropharynx normal Neck: normal visual inspection, trachea midline Respiratory: normal respiratory effort, lungs clear to auscultation Cardiovascular: regular rate, rhythm, no murmur, no BLE edema Abdomen/GI: normal bowel sounds, soft, nontender, no hepatosplenomegaly Extremities/Musculoskeletal: + R paraspinal incisions clean, intact. Some overlying warmth, no TTP. L lower paraspinal area TTP with extension to L flank, no deformity noted. Extremities motor strength 5/5 Neurologic: PERRL, EOMI, accommodation nl, no face palsy, no dysarthria, CN's II-XI intact bilaterally and moves all extremities Psychiatric: A+Ox3, euthymic affect Skin: no rashes, normal color, warm/dry Results & Data Results & Data Vital Signs (Past 12 Hours) Vital Signs Temp Pulse Resp BP Pulse Ox O2 Del Method O2 Flow Rate 11/14/23 08:42 97 Nasal Cannula 2 11/14/23 08:24 36.6 C 84 18 159/98 H 91 Room Air Laboratory Results Short CBC 11/14/23 Range/Units 09:13 WBC 5.29 (4.8-10.8) K/ul Hgb 11.0 L (12.0-16.0) g/dl Hct 34.3 L (37.0-47.0) % Plt Count 217 (130-400) K/uL BMP 11/14/23 09:13 Sodium 139 Potassium 3.7 Chloride 105 Carbon Dioxide 29 BUN 11 Creatinine 0.86 Glucose 124 H Calcium 8.3 L Liver Function 11/14/23 Range/Units 09:13 Total Bilirubin 0.4 (0.2-1.0) mg/dl AST 35 (13-39) U/L ALT 44 (7-52) U/L Alkaline Phosphatase 73 (34-104) U/L Albumin 3.4 (3.4-5.0) gm/dl Diagnostic Findings Abdomen/Pelvis CT 11/12/23 01:18 CT SCAN OF THE ABDOMEN AND PELVIS WITHOUT IV CONTRAST CLINICAL HISTORY: Left flank pain. COMPARISON STUDY: Abdominal CT dated 08/25/2023. TECHNIQUE: CT scan of the abdomen and pelvis is performed from the lung bases to the proximal femora. Images are reviewed in the axial, sagittal, and coronal planes. IV contrast was not administered for this examination. A dose lowering technique was utilized adhering to the principles of ALARA. CT DOSE: 1404.77 mGy.cm FINDINGS: Lung bases: The heart is normal in size and without pericardial effusion. The lung bases are clear. Liver: The unenhanced liver is normal in size, contour, and attenuation. There is no intrahepatic biliary ductal dilatation. Gallbladder: Surgically absent noting clips in the gallbladder fossa. Spleen: Normal in size and attenuation. Pancreas: Unremarkable. Adrenal glands: Unremarkable. Kidneys: The unenhanced kidneys are normal in size and without hydronephrosis. No renal calculi are identified and there is no ureteral stone. There is no evidence of contour deforming renal mass lesion. Abdominal vasculature: The abdominal aorta is normal in course and caliber. Bowel: There is no bowel obstruction. The appendix is well-visualized and normal. Peritoneum: There is no intraperitoneal free air or abdominal ascites. There is a fat-containing umbilical hernia. Lymphadenopathy: None. Pelvic viscera: The bladder is mildly distended but otherwise normal in appeara nce. The uterus is surgically absent. No adnexal lesion is seen. Skeletal structures: There is mild lumbosacral spondylosis, with postsurgical change from L5-S1 spinal fusion. Lucency around the left interpedicular screw in S1 suggests loosening. No lytic or blastic lesions are seen. A neurostimulator device is present in the right supragluteal tissues. Leads enter the central canal in the lower thoracic region. IMPRESSION: No acute infectious or inflammatory findings are identified in the abdomen or pelvis. ACT 112: Negative or not required by law. Electronically signed by: Robinson Carpenter M.D. 11/12/2023 6:55 AM
[2023-11-14] MEDS: KETOROLAC TROMETHAMINE 15 MG/ML VIAL IV SCH ×3 (10:33→22:30)
[2023-11-14 11:27] LABS: Marijuana Quant, GCMS Urine 1193 ng/mL (<5)
[2023-11-14] MEDS: ACETAMINOPHEN 500 MG TAB PO SCH ×2 (14:23→22:30)
[2023-11-14] MEDS: CYCLOBENZAPRINE HCL 10 MG TAB PO SCH ×2 (14:24→22:30)
[2023-11-14 18:50] LABS: Appearance Urine Clear (Clear); Bilirubin Urine Negative (Negative); Blood Urine Negative (Negative); Color Urine Yellow; Glucose Urine UA Negative (Negative); Ketones Urine Negative (Negative); Leukocyte Esterase Urine Negative (Negative); Nitrite Urine Negative (Negative); Protein Urine Negative (Negative); Specific Gravity Urine 1.005 (1.000-1.030); Urobilinogen Urine Negative (Negative); pH Urine 5.5 (4.5-7.5)
[2023-11-14] MEDS ORDERED: LORATADINE 10 MG TAB PO ONE (21:00)
[2023-11-14] MEDS: DOCUSATE SODIUM 100 MG CAP PO SCH (21:27)
[2023-11-15] MEDS: HYDROmorphone INJ 1 MG/ML SYRINGE IV PRN ×5 (00:58→18:12)
[2023-11-15] MEDS: oxyCODONE HCL IR 5 MG TAB (IMMEDIATE RELEASE) PO PRN (03:31)
[2023-11-15] MEDS: ACETAMINOPHEN 500 MG TAB PO SCH ×2 (05:36→13:54)
[2023-11-15] MEDS: CYCLOBENZAPRINE HCL 10 MG TAB PO SCH ×2 (05:36→13:54)
[2023-11-15] MEDS: KETOROLAC TROMETHAMINE 15 MG/ML VIAL IV SCH ×3 (05:36→17:01)
[2023-11-15 08:44] LABS: Hematocrit (blood only) 33.3 % (37.0-47.0); Mean Corpuscular Hemoglobin 28.9 pg (25.0-34.0); Mean Corpuscular Volume 87.4 fL (80.0-100.0); Mean Platelet Volume 9.6 fL (9.4-12.4); Platelet Count 231 K/uL (130-400); RDW Coefficient of Variation 12.3 % (11.5-14.5); RDW Standard Deviation 39.1 fL (36.4-46.3); Red Blood Count 3.81 M/uL (4.20-5.40); White Blood Count 4.95 K/ul (4.8-10.8)
[2023-11-15 08:57] LABS: BUN Creatinine Ratio 10.3 (10-20); Calcium 8.5 mg/dl (8.6-10.3); Creatinine Clr Calc Pharmacy 81.5 ml/min; Est GFR (African American) 72.6 ml/min; Est GFR (Non-African American) 62.6 ml/min; Potassium 4.3 mmol/L (3.5-5.1)
[2023-11-15] MEDS ORDERED: LORATADINE 10 MG TAB PO SCH (09:00)
[2023-11-15 09:10] LABS: Pregnancy Test, Serum Negative (Negative)
[2023-11-15] MEDS: buPROPion XL 300 MG TABCR PO SCH (09:40)
[2023-11-15] MEDS: PANTOprazole 40 MG TAB PO SCH (09:40)
[2023-11-15] MEDS: DULoxetine HCL 30 MG CAP PO SCH (09:41)
[2023-11-15] MEDS: DULoxetine HCL 60 MG CAP PO SCH (09:41)
[2023-11-15] MEDS: LIDOCAINE 5% 1 PATCH TD SCH (09:41)
[2023-11-15] MEDS: DOCUSATE SODIUM 100 MG CAP PO SCH (09:41)
--- NOTE | 2023-11-15 11:04 | Discharge Summary ---
Date of Service November 15, 2023 Admission HPI Per Admitting Provider This is a 43-year-old female who presents late last evening with worsening back pain and paresthesias in her legs. Symptoms were uncontrolled subsequently admitted her for observation and treatment. Principal Diagnosis Postoperative lumbar back pain Discharge Data Allergies Allergy/AdvReac Type Severity Reaction Status Date / Time tramadol AdvReac Mild "Did not Verified 11/05/23 08:15 help" with pain Consultations 11/12/23 02:54 ED Decision to Admit Stat 11/14/23 08:02 Consult Internal Medicine Routine Ordered Studies 11/12/23 01:18 CT abd pelvis wo con Stat Hospital Course (1) Status post surgery: Patient is status post dorsal stimulator placement came to the hospital with significant left sided back spasms. Kidney stones were ruled out she would require hospital admission a few days of medical management. She progressed appropriately. Pain is now more controlled. She has been up and ambulating without difficulty good strength testing lower extremities. No paresthesias. Incisions are healing appropriately. Subsequent she is discharged home will follow-up later this week in the office. Total Time Total Time Spent Total Time Spent (In Minutes): 20 minutes Discharge Plan Discharge Items Patient Disposition: Home - Self-Care Reason For Visit: POSTOP BACK PAIN Discharge Diagnosis: Postoperative back pain Activity: As commented below Non-emergency contact: Primary Care Provider Call non-emergency contact if: you have any medication questions Follow-up/Referrals: Tiny Brownlee DO [Primary Care Provider] - Diet: Regular Addtl Attending Provider Instructions: ACTIVITY RECOMMENDATIONS: SELF CARE INSTRUCTIONS AFTER A LAMINECTOMY 1. No prolonged sitting (less than 30 minutes for the first 3 weeks after surgery). 2. No bending, lifting more than 5 pounds, or twisting (roll like a log when turning in bed). 3. You may shower 3 days after surgery if no drainage from wound. Thoroughly dry wound. Do not soak in the tub. 4. Please walk as much as you can for exercise. Gradually increase the distance that you walk as your endurance increases. 5. You may drive in 7-10 days if you are comfortable and no longer requiring pain medications. SPECIAL CARE INSTRUCTIONS: VERY IMPORTANT TO READ AND REVIEW A. Your surgical incision has been closed with a cosmetic suture under the skin that will dissolve in about 6 weeks. In 14 days, you can use a pair of clean scissors and cut the suture that is left outside of the skin at the ends of your incision. B. Complications are uncommon, but please contact us if you have any signs or symptoms of: 1. wound infection (fever higher than 102.5 degrees F, redness, separation of wound, drainage, or increasing pain from the incision) 2. blood clots in legs (pain, swelling, redness and warmth in legs) 3. urinary tract infection (fever higher than 102.5 degrees, burning upon urination or increased frequency of urination) 4. nerve problems (inability to walk on your toes or heels, numbness, loss of bowel or bladder control) 5. any other symptoms that concern you. C. Please call the office at if you have any concerns or questions about your operation or recovery. MANAGING PAIN AFTER SPINAL SURGERY 1. Narcotic medication is intended for short-term use and will be provided for surgical pain. Surgical pain usually lasts for a period of 4-6 weeks. Narcotic medication includes Percocet, Vicodin, Darvocet, Tylenol #3 or Lortab. 2. Longer-term pain is more appropriately treated with non-narcotic medication such as Tylenol ES. 3. Muscle spasm is not appropriately treated with narcotics. Muscle relaxers such as Soma, Flexeril or Skelaxin can be used along with Tylenol ES. 4. Remember that we all live with some "aches and pains". This is not unusual or uncommon after an injury or as we get older. 5. We will provide appropriate medication within the normal guidelines of their prescribed use. We will also be very cautious and aware of potential abuse and extended duration of patients' medication needs. 6. Please allow 2-3 days to process refills. Prescriptions will not be mailed but must be picked up at the office. FOLLOW UP VISIT: Keep your scheduled follow-up appointment. Any questions, please call the office at . 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 duloxetine 60 mg capsule,delayed release(DR/EC) 60 mg PO QAM Rx Instructions: Take 60mg w/30mg capsule to equal 90mg every morning valacyclovir 1 gram tablet 2,000 mg PO Q12H PRN (Reason: flare) sumatriptan succinate 50 mg tablet 100 mg PO UD PRN (Reason: migraines) Rx Instructions: Take 2 tablets at onset of migraine and one tablet every 2 hours as needed, not more than 5 tablets in 24 hours duloxetine 30 mg capsule,delayed release(DR/EC) 30 mg PO QAM Rx Instructions: Take 30mg w/60mg capsule to equal 90mg every morning metoclopramide HCl 5 mg tablet 5 mg PO TID PRN (Reason: Dyspepsia) ascorbic acid (vitamin C) 500 mg Tablet 500 mg PO QAM celecoxib 100 mg capsule 100 mg PO DAILY PRN (Reason: Pain) bupropion HCl 300 mg tablet extended release 24 hr 300 mg PO QAM acidophilus-pectin, citrus 100 million cell-10 mg Capsule 1 cap PO QAM cyclobenzaprine 10 mg tablet 10 mg PO BID PRN (Reason: muscle spasm) acetaminophen [Tylenol Extra Strength] 500 mg Tablet 1,000 mg PO Q8H Qty: 60 0RF polyethylene glycol 3350 [Miralax] 17 gram Powder In Packet 17 g PO DAILY Qty: 14 0RF Rx Instructions: as needed ibuprofen 400 mg tablet 400 mg PO Q6H PRN (Reason: pain) Qty: 30 0RF docusate sodium 100 mg Tablet 100 mg PO BID PRN (Reason: Constipation) Qty: 20 0RF naproxen 500 mg tablet 500 mg PO BID PRN (Reason: pain) Qty: 20 0RF sennosides [Senokot] 8.6 mg tablet 8.6 mg PO HS PRN (Reason: Constipation) oxycodone 5 mg tablet 5 mg PO Q6H PRN (Reason: pain) Qty: 30 0RF Discharge Orders: Discharge Order (Routine); Ordered 01/01/24 Ordered By: Yaniv Beckham Admission Data Admit Date/Time: 11/15/23 08:49 Attending Provider: Yaniv Beckham Admit Provider: Yaniv Beckham Primary Care Provider: Tiny Brownlee. Other Providers: Yaniv Beckham; Kim Cabrera; Lauren Awad I.; Guillermo Tam; Ginny Sanabria; Mela Beaulieu; Zelda Palmer; Melanie Alberto; Javier German; Natanale Niño; Bruno Jin; Lydia Shahid; Misael Romero; Ileana Leyva; Nargis Ley; Miriam Gandara; Ric Lora; Ambar Montenegro; Izzy Mosley; Jessica Price I.; Eduardo Kelsey; Elin Morin; Kristofer Reis; Zeyad Siddiqui; Usman Mathews; Eleuterio Tong; Myra Ch; Diane Loredo L
--- NOTE | 2023-11-15 11:30 | Hospitalist Progress Note ---
Date of Service November 15, 2023 Assessment & Plan (1) Postoperative back pain: (2) Postlaminectomy syndrome of lumbar region: (3) Acute left flank pain: (4) Depression: (5) Fibromyalgia: (6) GERD (gastroesophageal reflux disease): Plan This is a 43-year-old female with PMH of GERD, fibromyalgia, depression, anxiety, history of PE, recent spinal cord stimulator surgery on 11/05/2023 and was admitted on 11/11 for worsening back pain and paresthesias in her legs. S/p spinal cord stimulator Left lower back pain S/p spinal cord stimulator surgery on 11/05/[address] Beckham Continues to have contralateral left lower back pain with radiation to flank No radicular symptoms in BLE CT abd/pelvis from 11/12 - no acute infectious or inflammatory findings are identified in the abdomen or pelvis No evidence of renal stones or hydro, no bowel obstruction Afebrile, VSS, no leukocytosis, lipase and amylase WNL, UA normal, LFTs WNL. Urine test negative. Obtained blood cultures given recent procedure but no signs, sx to warrant empiric abx at this time, cont. to monitor closely Scheduled Toradol, flexeril, lidocaine patch, heat to left lower back. Patient has been explained in detail. Answered all her questions. Patient reports significant improvement in her left lower back pain, and would like to go home. Depression Fibromyalgia Continue SNRI GERD Continue protonix DVT Ppx: TEDs per primary service Code status: FULL Disposition: Per primary. Admission and Anticipated Discharge Date Admission Date: November 15, 2023 Subjective Patient was seen and examined at bedside. Patient was sitting up in bed, on room air, not in any acute distress. Patient reports significant improvement in her left lower back pain since yesterday. Patient would like to continue Toradol on discharge, patient advised to take his scheduled Toradol for next 3 days and then switch to scheduled NSAIDs as discussed. Patient made aware to hold other NSAIDs while on Toradol. Patient made aware to take Toradol with food. Patient to continue her home PPI while on NSAIDs. Physical Exam Physical Exam: GENERAL: Alert and oriented x3. NAD, on RA. HEENT: No pallor, no icterus. Pupils equal, round and reactive to light. Oral mucosa moist. NECK: No JVD, no neck masses. HEART: S1 and S2 heard. Regular rate and rhythm. No murmur, no gallop. RESPIRATORY SYSTEM: Normal AP diameter. No accessory muscle use. No wheezing, no crackles. ABDOMEN: Soft, bowel sounds present, nontender, no distention. CENTRAL NERVOUS SYSTEM: No facial droop. Speech is clear. Obeys simple commands. Moves extremities. EXTREMITIES: No edema, no erythema seen. Low back: Spinal cord stimulator placement operative site clean incision/healthy-appearing. 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 No signs of infection. Results & Data Results & Data Vital Signs (Past 12 Hours) Vital Signs Temp Pulse Resp BP Pulse Ox O2 Del Method 11/15/23 07:54 36.8 C 82 16 153/95 H 94 Room Air
== END 2023-11-15 18:48 | disposition home or self-care (01) | DRG 948 ==
LOC: ED 19:13 → EDINP 19:13 → 3W 11-12 04:22

== ENCOUNTER 2024-05-07 00:58 | Observation (INO) ==
--- OUTSIDE RECORDS SUMMARY | 2024-05-07 01:03 | External Medical Summary | Summary of Care ---
Author Name Unknown Organization [facility] Address [address] [place] [address] Phone [phone] Care Team Providers Care Automotive Service Advisor Name Role Phone Tiny Brownlee DO Primary Care Provider [phone] Reason for Referral * Evaluate & Treat - Unlimited Visits (Within 10 days (routine)) - Pending Review Specialty Diagnoses / Procedures Referred By Jimmy conley Referred To Contact Pharmacist / Pharmacy Diagnoses Fibromyalgia Right lumbar radiculopathy Tiny Brownlee DO [address] [place] [address] Referral ID Status Reason Start Date Expiration Date Visits Requested Visits Authorized [id number] Pending Review Specialty Services Required 03/15/[phone] Question Answer Referral Priority Within 10 days (routine) Where should this appointment be scheduled? [facility] Referring Provider Role: Primary Care Reason for Referral: Pain Pain Diagnosis: Back pain, Fibromyalgia Pain Treatment Options: Non-opioids only Pain Treatment Goal: Med Optimization Comments Pharmacist Medication Therapy Management: Minimum frequency patient should be seen in person for medication management: as appropriate per clinical condition and patient status By my signature, I understand that my patient Telma Vann will have her medication therapy managed by the [facility] ([facility]) per established policies, procedures, and protocols. I also certify that this referral may serve as an initiation of service for the management of drug therapy in the above noted patient. [facility] providers will be responsible for scheduling patient visits, obtaining appropriate laboratory studies, and adjusting medication management therapy per patient's need, in addition to those roles spelled out in the clinic policy, procedures, and drug management protocols. I understand that the service provided by the [facility] is voluntary and have informed patient that they can refuse the service at their discretion. I am aware that the [facility] Clinic will provide me with a copy of the patient encounter via my [employer]. I authorize the [facility] to carry out these activities on my behalf. I consider this program to be a necessary part of the patient's medical care. Tiny Brownlee DO * Evaluate & Treat - Unlimited Visits (Within 10 days (routine)) - Pending Review Specialty Diagnoses / Procedures Referred By Jimmy conley Referred To Contact Psychiatry Diagnoses ANGELIQUE (generalized anxiety disorder) Current mild episode of major depressive disorder without prior episode (HCC) Tiny Brownlee DO [address] [place] [address] Referral ID Status Reason Start Date Expiration Date Visits Requested Visits Authorized [id number] Pending Review Specialty Services Required 03/15/[phone] Question Answer Referral Priority Within 10 days (routine) Where should this appointment be scheduled? [facility] Is this referral for medication management? Yes Reason for Referral Depression * Evaluate & Treat - Unlimited Visits (Within 10 days (routine)) - Pending Review Specialty Diagnoses / Procedures Referred By Jimmy conley Referred To Contact Psychology Diagnoses ANGELIQUE (generalized anxiety disorder) Current mild episode of major depressive disorder without prior episode (HCC) Tiny Brownlee DO [address] [place] [address] Referral ID Status Reason Start Date Expiration Date Visits Requested Visits Authorized [id number] Pending Review Specialty Services Required 03/15/[phone] Question Answer Referral Priority Within 10 days (routine) Where should this appointment be scheduled? [facility] Is this referral for medication management? No Reason for Referral: Depression/Anxiety/Bipolar Specific Condition? Depression Reason for Visit * Reason Comments Emergency Department Follow-Up [facility] ER l ate February, for severe RAYMUNDO, still with pain in back of head radiating down neck Encounter Details Date Type Department Care Team (Latest Contact Info) Description 03/15/2024 3:40 PM EDT Office Visit Family [facility] [address] [place] [address] Tiny Brownlee DO [address] [place] [address] ANGELIQUE (generalized anxiety disorder)*; Current mild episode of major depressive disorder without prior episode (HCC); Fibromyalgia; Right lumbar radiculopathy Allergies No known active allergiesdocumented as of this encounter (statuses as of 03/31/2024) Medications Medication Sig Dispensed Refills Start Date End Date Status docusate sodium (COLACE) 100 MG Capsule Take 1 Capsule by mouth 2 times a day as needed for Constipation. 10 Cap 0 05/24/2018 Active Loratadine 10 MG Oral Tablet (CLARITIN) Take 1 Tablet by mouth in the morning. 0 Active diltiazem 2% 2% WA GEL Administer [...] Pain, Mild. 60 Tablet 0 01/27/2023 Active Omeprazole 40 MG Oral Capsule Delayed Release (PriLOSEC)Indicat ions:Abdominal pain, generalized Take 1 capsule by mouth twice daily 180 Capsule 1 09/30/2023 Active traMADol HCl 50 MG Oral Tablet (Ultram) Take 1 Tablet by mouth 2 times a day as needed for Pain, Moderate or Pain, Severe. 60 Tablet 0 10/06/2023 Active buPROPion HCl ER (XL) 300 MG Oral Tablet Extended Release 24 Hour (Wellbutrin XL)Indications:Re current major depressive disorder, in partial remission (HCC) Take 1 Tablet by mouth in the morning. In the morning.. 90 Tablet 1 11/02/2023 Active DULoxetine HCl 60 MG Oral Capsule Delayed Release Particles (Cymbalta)Indicat ions:Recurrent major depressive disorder, in partial remission (HCC) [...] Active valACYclovir HCl 1 GM Oral Tablet (Valtrex)Indicati ons:HSV infection TAKE 2 TABLETS BY MOUTH EVERY 12 HOURS FOR COLD SORES. 4 pills total per outbreak. 12 Tablet 5 11/02/2023 Active Ondansetron HCl 4 MG Oral Tablet (Zofran)Indicatio ns:Nausea Take 1 Tablet by mouth every 6 hours as needed for Nausea. 30 Tablet 0 11/02/2023 Active DULoxetine HCl 30 MG Oral Capsule Delayed Release Particles (Cymbalta)Indicat ions:Current mild episode of major depressive disorder without prior episode (HCC) TAKE 1 CAPSULE BY MOUTH IN THE MORNING ALONG WITH 60 MG CAPSULE FOR TOTAL DAILY DOSE OF 90 MG. DO NOT CUT, CRUSH OR CHEW 90 Capsule 1 11/02/2023 Active Clotrimazole-Beta methasone 1-0.05 % External Cream Apply to both feet twice daily. 45 g 2 01/06/2024 Active Celecoxib 100 MG Oral Capsule (CeleBREX) TAKE 1 TO 2 CAPSULES BY MOUTH DAILY NEEDED FOR PAIN USE LOWEST DOSE NECESSARY FOR PAIN RELIEF 60 Capsule 2 02/03/2024 Active Lidocaine 5 % External Patch (Lidoderm) daily. 0 12/04/2023 Active Terbinafine HCl 250 MG Oral Tablet Take 1 Tablet by mouth in the morning. 45 Tablet 1 09/10/2023 4 Discontinue d(Medicatio n List Clean Up) Azithromycin 250 MG Oral Tablet (Zithromax Z-Basilio)Indications :Acute sinusitis, recurrence not specified, unspecified location Take two tablets by mouth on first day, then 1 tablet daily until gone 6 Tablet 0 02/14/2024 4 Discontinue d(Medicatio n List Clean Up) Ketorolac Tromethamine 10 MG Oral Tablet (Toradol) 2 Tablets. 0 11/15/2023 4 Discontinue d(Medicatio n List Clean Up) documented as of this encounter (statuses as of 03/31/2024) Active Problems Problem Noted Date Diagnosed Date Worst headache of life 02/17/2024 Anal fistula 10/22/2022 History of pulmonary embolism 02/04/2022 Overview: Related to control Gastroesophageal reflux disease without esophagi tis 12/03/2020 Fibromyalgia 12/03/2020 ANGELIQUE (generalized anxiety disorder) 12/03/2020 Current mild episode of kusum r depressive disorder without prior episode 01/05/2020 documented as of this encounter (statuses as of 03/31/2024) Resolved Problems Problem Noted Date Diagnosed Date Resolved Date Acute pancreatitis 02/08/2015 1 Pulmonary embolism 05/26/2013 8 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 management encounter 05/26/2013 07/03/2014 prison current use of ant icoagulant therapy 05/26/2013 08/19/2017 Overview: ICD-10 update of inactive term 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 Normal , first 10/25/200311/15 Lumbago 12/03/2020 Major depressive disorder Overview: ICD-10 update of inactive term documented as of this encounter (statuses as of 03/31/2024) Immunizations Name Administration Dates Next Due COVID-19 mRNA, LNP-s, No Pre serve, 2-Dose Series (CREATIV) 03/27/2021,02/12/2021 Seasonal Influenza Virus Vac cine, Unspecified [...] Sign Reading Time Taken Comments Blood Pressure 122/78 03/15/2024 4:03 PM EDT Pulse 60 03/15/2024 4:03 PM EDT Temperature 36.8 C (98.3 F) 03/15/2024 4:03 PM ED T Respiratory Rate 16 03/15/2024 4:03 PM EDT Oxygen Saturation - - Inhaled Oxygen Concentration - - Weight 99.3 kg (219 lb) 03/15/2024 4:03 PM EDT Height - - Body Mass Index 35.35 12/17/2023 10:40 AM EST documented in this encounter Functional Status [...] as of this encounter Progress Notes * Tiny Brownlee, - 03/15/2024 4:14 PM EDT Subjective: Telma Vann is a 43 year old female. Chief Complaint Patient presents with Emergency Department Follow-Up [facility] ER late February, for severe RAYMUNDO, still with pain in back of head radiating down neck HPI: Pt presents for ER follow up. Was referred there from the office last month for severe RAYMUNDO/migraine. Left the ER after 3 hours of waiting. Pain is better, still has some tightness in her neck into her head. Pt is concerned about memory - recently couldn't remember her horse's name. notes she's asked questions repeatedly. Sx of depression and anxiety are severe right now too. Says she cries and worries all the time. Having a hard time scheduling with psychiatry or psychology. In a lot of pain - has family hx of RA - planning to see a different practice. Has pain in multiplejoints. Had SCS placed in Dec - helps somewhat. PHM: Patient Active Problem List Diagnosis Code Current mild episode of major depressive disorder without prior episode (HCC) F32.0 Gastroesophageal reflux disease without esophagitis K21.9 Fibromyalgia M79.7 ANGELIQUE (generalized anxiety disorder) F41.1 History of pulmonary embolism Z86.711 Anal fistula K60.3 Worst headache of life R51.9 Current Outpatient Medications Medication Sig Dispense Refill docusate sodium (COLACE) 100 MG Capsule Take 1 Capsule by mouth 2 times a day as needed for Constipation. 10 Cap Loratadine 10 MG Oral Tablet (CLARITIN) Take [...] needed for Pain, Mild. 60 Tablet 0 Omeprazole 40 MG Oral Capsule Delayed Release [...] pills total per outbreak. 12 Tablet 5 Ondansetron HCl 4 MG Oral Tablet (Zofran) Take 1 Tablet by mouth every 6 hours as needed for Nausea. 30 Tablet 0 DULoxetine HCl 30 MG Oral Capsule Delayed Release Particles (Cymbalta) TAKE 1 CAPSULE BY MOUTH IN THE MORNING ALONG WITH 60 MG CAPSULE FOR TOTAL DAILY DOSE OF 90 MG. DO NOT CUT, CRUSH OR CHEW 90 Capsule 1 Clotrimazole-Betamethasone 1-0.05 % External Cream Apply to both feet twice daily. 45 g 2 Celecoxib 100 MG Oral Capsule (CeleBREX) TAKE 1 TO 2 CAPSULES BY MOUTH DAILY NEEDED FOR PAIN USELOWEST DOSE NECESSARY FOR PAIN RELIEF 60 Capsule 2 Lidocaine 5 % External Patch (Lidoderm) daily. No current facility-administered medications for this visit. Past Medical History: Diagnosis Date Back pain with history of spinal surgery Benign neoplasm of colon 12/16/2011 biopsies taken to check for microscopic colitis, hemorroids, normal biopsy, most likely symptoms related to irritable bowel syndrome Depressive disorder, not elsewhere classified 1998 Fibromyalgia 12/03/2020 Fistula ANGELIQUE (generalized anxiety disorder) 12/03/2020 Gastroesophageal reflux disease without esophagitis 12/03/2020 H/O degenerative disc disease Lumbago 2004 Migraine without aura Pulmonary embolism (HCC) 05/21/2013 right lung Spinal stenosis Past Surgical History: Procedure Laterality Date ANAL FISTULA SURG, TRANS/SUPRA/EXTRASPHINCT N/A 10/22/2022 TREATMENT OF ANAL FISTULA COMPLEX performed by Caroline Chadwick MD at OR [facility] ANORECTAL EXAM ,DIAG, REQUIRING ANESTHESIA N/A 10/22/2022 ANORECTAL EXAM UNDER ANESTHESIA performed by Caroline Chadwick MD at OR [facility] BREAST LESION,OTHER,EXCISION Right 06/27/2019 benign pathology COLONOSCOPY W/ BIOPSY (RECTUM) 12/16/2011 biopsies taken to check for microscopic colitis, hemorroids, normal biopsy, most likely symptoms related to irritable bowel syndrome COLONOSCOPY, DIAGNOSTIC (RECTUM) 01/01/2021 normal, repeat 10 yrs / COLONOSCOPY FLEXIBLE PROXIMAL DIAGNOSTIC performed by Yun Stanley DO at ENDOSCOPY [facility] COLONOSCOPY, DIAGNOSTIC (RECTUM) 12/04/2022 normal / COLONOSCOPY FLEXIBLE PROXIMAL DIAGNOSTIC performed by Marlen Desai MD at ENDOSCOPY [facility] DENTAL SURGERY PROCEDURE NEC Dental Surgery Procedure EGD, FLEXIBLE, DIAGNOSTIC 09/20/2013 UPPER GI ENDOSCOPY DIAGNOSTIC performed by Alessandro Cortez MD at ENDOSCOPY [facility] EGD, FLEXIBLE, DIAGNOSTIC 02/07/2015 mild inflammation, pancreatic stent removed/[facility] EGD, FLEXIBLE, DIAGNOSTIC 02/14/2015 ESOPHAGOGASTRODUODENOSCOPY (EGD), FLEXIBLE, TRANSORAL, DIAGNOSTIC performed by Tavares Mooney MD [place] [facility] [place]GD, FLEXIBLE, DIAGNOSTIC 01/02/2016 mild gastritis/ESOPHAGOGASTRODUODENOSCOPY (EGD), FLEXIBLE, TRANSORAL, DIAGNOSTIC performed by Yun Stanley DO at ENDOSCOPY [facility] EGD, FLEXIBLE, DIAGNOSTIC 11/19/2016 mild inflammation on bx/ESOPHAGOGASTRODUODENOSCOPY (EGD), FLEXIBLE, TRANSORAL, DIAGNOSTIC performedby Yun Stanley DO at ENDOSCOPY [facility] EGD, FLEXIBLE, DIAGNOSTIC 01/15/2020 mid gastric irritation on bx / [facility] EGD, FLEXIBLE, DIAGNOSTIC 12/04/2022 normal bx / ESOPHAGOGASTRODUODENOSCOPY (EGD), FLEXIBLE, TRANSORAL, DIAGNOSTIC performed by Marlen Desai MD at ENDOSCOPY [facility] EGD, W/ENDOSCOPIC US 12/20/2013 ESOPHAGOGASTRODUODENOSCOPY (EGD), FLEXIBLE, TRANSORAL, ENDOSCOPIC ULTRASOUND performed by Dilip Elizabeth MD at OR [facility] ELBOW TENOTOMY W/RE-ATTACH W/ RADHA, OPEN Left 09/05/2021 TENOTOMY ELBOW TENDON REPAIR performed by Mario Desir DO at OR [facility] ERCP, DIAGNOSTIC, SPECIMEN COLLECTION 01/28/2015 Biliary papillary stenosis/[facility] EVAL NEUROSTIM PULSE GEN, W/ REPROGRAM Bilateral 09/09/2023 NEUROSTIMULATOR PULSE GENERATOR/ TRANSMITTER, WITH INTRAOPERATIVE OR SUBSEQUENT PROGRAMMING performed by Jace Puente DO at OR [facility] IMPLANT EPIDURAL NEUROELECTRODES Bilateral 09/09/2023 PERCUTANEOUS IMPLANTATION NEUROSTIMULATOR EPIDURAL performed by Jace Puente DO at OR [facility] INJECT DX/THER SUBSTANCE INTERLAMINAR LUMBAR/SACRAL W IMAGE GUIDE 03/01/2023 INJECTION SPINE LUMBAR OR SACRAL performed by Jace Puente DO at [facility] KNEE ARTHROSCOPY, DIAGNOSTIC left knee LAP;W/HYSTERECTOMY LAPAROSCOPY DIAGNOSTIC N/A 01/27/2023 LAPAROSCOPY DIAGNOSTIC performed by Tosin Durán MD at OR [facility] LAPAROSCOPY; CHOLECYSTECTOMY 01/15/2015 01/15/2015 laparoscopic cholecystectomy [facility] karimi 01/08/15 LAPAROSCOPY;RMV ADNEXAL STRUCT Bilateral 01/27/2023 LAPAROSCOPIC OOPHORECTOMY AND OR SALPINGECTOMY performed by Tosin Durán MD at OR [facility] LUMBAR / SACRAL EPIDURAL, SINGLE LEVEL 11/19/2022 INJECTION TRANSFORAMINAL EPIDURAL LUMBAR OR SACRAL performed by Jace Puente DO at [facility] MISCELLANEOUS ORDER ([facility] ONLY) 09/28/2016 Spine surgery done at [facility] TOTAL ABD HYSTERECTOMY W/WO REMOVAL OF TUBE(S) 2014 [place], still has ovaries Review of patient's allergies indicates: No Known Allergies Objective: BP 122/78 (BP Site: Left Arm, BP Position: Sitting, BP Cuff Size: Regular) | Pulse 60 | Temp 36.8 C (98.3 F) (Tympanic) | Resp 16 | Wt 99.3 kg (219 lb) | LMP 12/20/2015 (Exact Date) | BMI 35.35 kg/m | BSA 2.15 m Review of Systems: As per HPI, all other ROS neg. Physical Exam: General: alert, healthy and no distress Heart: regular rate & rhythm, no murmurs and no gallops Lungs: chest symmetric with normal AP diameter, no chest deformities noted, lungs clear to auscultation Extremities: no joint deformities, effusion, or inflammation, no edema ANGELIQUE (generalized anxiety disorder) (Primary) - ADULT/PEDS PSYCHOLOGY REFERRAL OP - ADULT/PEDS PSYCHIATRY REFERRAL OP Current mild episode of major depressive disorder without prior episode (HCC) - ADULT/PEDS PSYCHOLOGY REFERRAL OP - ADULT/PEDS PSYCHIATRY REFERRAL OP Fibromyalgia - PHARMACIST MEDS THERAPY MGMT REFERRAL OP Right lumbar radiculopathy - PHARMACIST MEDS THERAPY MGMT REFERRAL OP Follow up: as needed. Tiny Brownlee DO documented in this encounter Plan of Treatment Upcoming Encounters Date Type Department Care Team (Late st Contact Info) Description 04/13/2024 4:15 PM EDT Imaging Radiology [address] [facility] [place] [address] 04/14/2024 2:45 PM EDT NeuroDiagnostic Study Neurophysiology [facility] [address] [place] [address] Fitz Leal MD [address] [place] [address] 04/17/2024 11:30 AM EDT Therapy Psychology [facility] [address] [facility] [place] [address] Malorie Medina, STYLIST APPRENTICE [address] [facility] [place] [address] 04/26/2024 10:00 AM EDT Office Visit Audiology [facility] [address] [place] [address] Nga Helms Au.D. [address] [place] [address] 04/26/2024 2:00 PM EDT Office Visit Podiatry [facility] [address] [facility] [place] [address] Pattie Barrera, DPM [address] [facility] [place] [address] 04/27/2024 3:00 PM EDT Office Visit Interventional Pain Center, [facility] [address] [place] [address] Jace Puente, DO [address] [place] [phone] 06/21/2024 2:40 PM EDT Office Visit Family Practice [facility] [address] [place] [address] Tiny Brownlee, DO [address] [place] [address] 08/23/2024 9:00 AM EDT Telemedicine Psychiatry, [facility] [address] [place] [address] Davis Borrego CRNP [address] [place] [address] 02/16/2025 1:00 PM EDT Imaging Radiology [facility] [address] [place] [address] Scheduled Procedures Name Priority Associated Diagnoses Date/Ti me COLONOSCOPY FLEXIBLE PROXIMAL DIAGNOSTIC Recall Screen for colon cancer Scheduled Referrals Name Type Priority Associated Diagnoses Orde r Schedule ADULT/PEDS PSYCHOLOGY REFERRAL OP Referral Within 10 days (routine) ANGELIQUE (generalized anxiety disorder) Current mild episode of major depressive disorder without prior episode (HCC) Ordered: 03/15/2024 ADULT/PEDS PSYCHIATRY REFERRAL OP Referral Within 10 days (routine) ANGELIQUE (generalized anxiety disorder) Current mild episode of major depressive disorder without prior episode (HCC) Ordered: 03/15/2024 PHARMACIST MEDS THERAPY MGMT REFERRAL OP Referral Within 10 days (routine) Fibromyalgia Right lumbar radiculopathy Ordered: 03/15/2024 Health Maintenance Due Date Last Done Comments Hepatitis C Screening 1996 Hepatitis B (1 of 3 - 19+ 3-dose series) 1997 Depression, Most Recent Score >= 10 (will fire each visit until score < 10) 08/06/2022 08/05/2022 COVID-19 Vaccine (2022- season) 2023 03/27/2021, 02/12/2021 Cologuard 2023 Fecal Occult Blood Test 2023 Sigmoidoscopy 2023 Mammogram 02/14/2025 02/15/2024, 07/17, 08/07/2021, Additional history exists Diabetes Screening 11/02/2026 11/02/2023, 0 01/27/2023, 11/30/2022, Additional history exists Lipid Panel 12/13/2028 12/13/2023, 03/17, 02/25/2016 DTaP,Tdap,and Td Vaccines (3 - Td or Tdap) 01/02/2030 01/02/2020, 07/24/2011 Colonoscopy 12/04/2032 12/04/2022, 11/16, 01/01/2021, Additional history exists Colorectal Cancer Screening 12/04/2032 RETIRED - COLONOSCOPY EVERY 10 YEARS,AGES 18-50 Discontinued 12/04/2022, 12/04/2022, 01/01/2021, Additional history exists Influenza Vaccine (FLU shot) Completed 11/02/2023, 08/05/2022, 08/05/2022, Additional history exists GARDASIL-HPV IMMUNIZATION [...] this encounter Medical Devices Implanted Type Area Nurse Advisor Device Identifier Shelf Expiration Date Model / Serial / Lot Lead-11/05/2023 Implanted:11/05 by Yaniv Beckham DO (Quantity not on file) Lead [employer] 06/22/2025 [id number] / [id number] / NA Description:[place] [employer]ent[employer] Lead Kit 50CM #[id number] Beckham at [facility] on 11/05/23 Fibertak Dx Suture [place] With 1.33 Mm Suturetape Implanted:Qty: 2 on 09/05/2021 by Mario Desir DO at OR [facility] Left: Elbow 05/14/2026 [id number] / / [id number] Description:with 1.3 mm Fibe rWire SutureTape and [place] Lead Kit Trial [id number] 50cm - [id number] - [id number] Implanted:Qty: 1 on 09/09/2023 by Jace Puente DO at OR [facility] Right: Back [employer] : PAIN MGMT 05/29/2025 [id number] / [id number] / Lead Kit Trial [id number] 50cm - [id number] - [id number] Implanted:Qty: 1 on 09/09/2023 by Jace Puente DO at OR [facility] Left: Back [employer] : PAIN MGMT 06/13/2025 [id number] / [id number] / Neurostimulator -11/05/2023 Implanted:11/05 by Yaniv Beckham DO (Quantity not on file) [employer] 04/03/2025 [id number] / [id number] / [id number] Description:[place] [employer] [id number] Implanted at [facility] by Dr Beckham 11/05/23 documented as of this encounter Visit Diagnoses Diagnosis ANGELIQUE (generalized anxiety disorder)- Primary Generalized anxiety disorder Current mild episode of major depressive disorder without prior episode (HCC) Fibromyalgia Mylagia and myositis, unspecified Right lumbar radiculopathy Thoracic or lumbosacral neuritis or radiculitis, unspecified documented in this encounter Advance Directives Latest [...] the patient have Health Care Power of Automation Sales Manager? No Care Teams Automotive Service Advisor Relationship Specialty Start Date End Date Tiny Brownlee DO [address] [place] [address] PCP - General Family Medicine 12/30/21 documented as of this encounter"
--- OUTSIDE RECORDS SUMMARY | 2024-05-07 01:03 | External Medical Summary | Summary of Care ---
Author Name Unknown Organization [facility] Address [address] [place] [address] Phone [phone] Care Team Providers Care Customer Field Representative Name Role Phone VaniaTiny werner Marino BYRD Primary Care Provider [phone] Reason for Visit * Reason Onset Date Comments Medication Refill 01/06/2024 Encounter Details Date Type Department Care Team (Late st Contact Info) Description 01/06/2024 Telephone Podiatry, [facility] [address] [place] [address] Pattie Barrera DPM [address] [place] [address] Medication Refill Allergies No known active allergiesdocumented as of this encounter (statuses as of 04/06/2024) Medications Medication Sig Dispensed Refills Start Date End Date Status docusate sodium (COLACE) 100 MG Capsule Take 1 Capsule by mouth 2 times a day as needed for Constipation. 10 Cap 8 Active Loratadine 10 MG Oral Tablet (CLARITIN) Take 1 Tablet by mouth in the morning. Active diltiazem 2% 2% ME GEL Administer 1 Application Dosing Unit into the rectum 2 times a day as needed (rectal pain). 60 mL 1 Active Cyclobenzaprine HCl 10 MG Oral Tablet (Flexeril) TAKE ONE TABLET BY MOUTH TWICE DAILY NEEDED FOR MUSCLE SPASMS 20 Tablet 2 Active Acetaminophen 325 MG Oral Tablet (Tylenol) Take 2 Tablets by mouth every 6 hours as needed for Pain, Mild. 60 Tablet 3 Active Omeprazole 40 MG Oral Capsule Delayed Release (PriLOSEC)Indica tions:Abdominal pain, generalized Take 1 capsule by mouth twice daily 180 Capsule 1 3 Active traMADol HCl 50 MG Oral Tablet (Ultram) Take 1 Tablet by mouth 2 times a day as needed for Pain, Moderate or Pain, Severe. 60 Tablet 3 Active buPROPion HCl ER (XL) 300 MG Oral Tablet Extended Release 24 Hour (Wellbutrin XL)Indications:R ecurrent major depressive disorder, in partial remission (HCC) Take 1 Tablet by mouth in the morning. In the morning.. 90 Tablet 1 3 Active DULoxetine HCl 60 MG Oral Capsule Delayed Release Particles (Cymbalta)Indica tions:Recurrent major depressive disorder, in partial remission (HCC) TAKE 1 CAPSULE BY MOUTH ONCE DAILY IN THE MORNING (DO NOT CUT, CRUSH OR CHEW) 90 Capsule 1 3 Active SUMAtriptan Succinate 50 MG Oral Tablet (Imitrex) TAKE 2 TABLETS BY MOUTH AT ONSET OF MIGRAINE AND 1 TABLET EVERY 2 HOURS NEEDED. DO NOT EXCEED MORE THAN 5 TABLETS IN 24 HOURS. 6 Tablet 5 3 Active valACYclovir HCl 1 GM Oral Tablet (Valtrex)Indicat ions:HSV infection TAKE 2 TABLETS BY MOUTH EVERY 12 HOURS FOR COLD SORES. 4 pills total per outbreak. 12 Tablet 5 3 Active Ondansetron HCl 4 MG Oral Tablet (Zofran)Indicati ons:Nausea Take 1 Tablet by mouth every 6 hours as needed for Nausea. 30 Tablet 3 Active DULoxetine HCl 30 MG Oral Capsule Delayed Release Particles (Cymbalta)Indica tions:Current mild episode of major depressive disorder without prior episode (HCC) TAKE 1 CAPSULE BY MOUTH IN THE MORNING ALONG WITH 60 MG CAPSULE FOR TOTAL DAILY DOSE OF 90 MG. DO NOT CUT, CRUSH OR CHEW 90 Capsule 1 3 Active Clotrimazole-Bet amethasone 1-0.05 % External Cream Apply to both feet twice daily. 45 g 2 4 Active Clotrimazole-Bet amethasone 1-0.05 % External Cream Apply to both feet twice daily. 45 g 2 3 01/06/20 24 Discontinued(Ref ill) Terbinafine HCl 250 MG Oral Tablet Take 1 Tablet by mouth in the morning. 45 Tablet 1 3 03/15/20 24 Discontinued(Med ication List Clean Up) Celecoxib 100 MG Oral Capsule (CeleBREX) Take 1-2 capsules by mouth as needed for pain, use lowest dose necessary for pain relief. 60 Capsule 2 3 02/03/20 24 Discontinued documented as of this encounter (statuses as of 04/06/2024) Active Problems Problem Noted Date Diagnosed Date Worst headache of life 02/17/2024 Anal fistula 10/22/2022 History of pulmonary embolism 02/04/2022 Overview: Related to control Gastroesophageal reflux disease without esophagi tis 12/03/2020 Fibromyalgia 12/03/2020 ANGELIQUE (generalized anxiety disorder) 12/03/2020 Current mild episode of kusum r depressive disorder without prior episode 01/05/2020 documented as of this encounter (statuses as of 04/06/2024) Resolved Problems Problem Noted Date Diagnosed Date Resolved Date Acute pancreatitis 02/08/2015 1 Pulmonary embolism 05/26/2013 8 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 management encounter 05/26/2013 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 current use of ant icoagulant therapy 05/26/2013 08/19/2017 Overview: ICD-10 update of inactive term 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 * Telephone Encounter - Isis Cardozo OSA - 01/06/2024 9:[address] Barrera, Could you please send a refill to [facility]. For her Clotrim/Beta 1-0.05% Cream. Put in orange folder behind nurses station. Thank you. documented in this encounter Plan of Treatment Upcoming Encounters Date Type Department Care Team (Late st Contact Info) Description 04/13/2024 4:15 PM EDT Imaging Radiology [facility] 1st [facility] [address] [facility] [place] [address] 04/14/2024 2:45 PM EDT NeuroDiagnostic Study Neurophysiology Juan Daniels [place] [address] [place] [address] Fitz Leal MD [address] [place] [address] 04/17/2024 11:30 AM EDT Therapy Psychology [facility] [address] [facility] [place] [address] Malorie Medina, QUALIFIED CRAFT WORKER ELECTRICIAN [address] [place] [address] 04/26/2024 10:00 AM EDT Office Visit Audiology [facility] [address] [place] [address] Nga Helms Au.D. [address] [place] [address] 04/26/2024 2:00 PM EDT Office Visit Podiatry [facility] [address] [place] [address] Pattie Barrera, DPM [address] [place] [address] 04/27/2024 3:00 PM EDT Office Visit Interventional Pain Center, [facility] [address] [place] [address] Jace Puente, DO [address] [place] [id number] 06/21/2024 2:40 PM EDT Office Visit Family Practice [facility] [address] [place] [address] Tiny Brownlee, DO [address] [place] [address] 08/23/2024 9:00 AM EDT Telemedicine Psychiatry, [facility] [address] [place] [address] Davis Borrego CRNP [address] [place] [address] 02/16/2025 1:00 PM EDT Imaging Radiology [facility] 1st Floor, [place] [address] [facility] [place] [address] Scheduled Procedures Name Priority Associated Diagnoses Date/Ti me COLONOSCOPY FLEXIBLE PROXIMAL DIAGNOSTIC Recall Screen for colon cancer Health Maintenance Due Date Last Done Comments Hepatitis C Screening 1996 Hepatitis B (1 of 3 - 19+ 3-dose series) 1997 Depression, Most Recent Score >= 10 (will fire each visit until score < 10) 08/06/2022 08/05/2022 COVID-19 Vaccine (3 - 2022-24 season) 2023 03/27/2021, 02/12/2021 Cologuard 2023 Fecal [...] this encounter Medical Devices Implanted Type Area Dairy Bacteriologist Device Identifier Shelf Expiration Date Model / Serial / Lot Lead-11/05/2023 Implanted:11/05 by Yaniv Beckham DO (Quantity not on file) Lead [employer] 06/22/2025 [id number] / [id number] / NA Description:[employer] Lead Kit 50CM #[id number] Beckham at [facility] on 11/05/23 Fibertak Dx Suture [place] With 1.33 Mm Suturetape Implanted:Qty: 2 on 09/05/2021 by Mario Desir DO at OR [facility] Left: Elbow 05/14/2026 [id number] / / [id number] Description:with 1.3 mm Fibe rWire SutureTape and [place] Lead Kit Trial [id number] 50cm - [id number] - [id number] Implanted:Qty: 1 on 09/09/2023 by Jace Puente DO at OR [facility] Right: Back [employer] : PAIN MGMT 05/29/2025 [id number] 50E0 / [id number] / Lead Kit Trial [id number] 50cm - [id number] - [id number] Implanted:Qty: 1 on 09/09/2023 by Jace Puente DO at OR [facility] Left: Back [employer] : PAIN MGMT 06/13/2025 [id number] 50E0 / [id number] / Neurostimulator -11/05/2023 Implanted:11/05 by Yaniv Beckham DO (Quantity not on file) [employer] 04/03/2025 [id number] / [id number] / [id number] Description:Imperial Scientifi c Wavewriter Alpha [id number] Implanted at [facility] by Dr Beckham 11/05/23 documented as of this encounter Advance Directives * Full Code (Latest Code Status on File) Date Activated Date Inactivated Comments 01/27/2023 2:30 PM 01/27/2023 9:18 PM This order r eflects the patients wishes and were consensually agreed upon. Question Answer Comments Discussion of Advance Direct ray occurred with: Not Discussed due to patient's condition * Full Code Date Activated Date Inactivated Comments 10/22/2022 12:13 PM 10/22/2022 8:27 PM This order reflects the patients wishes and were consensually agreed upon. Question Answer Comments Discussion of Advance Directives occurred with: Patient * Full Code Date Activated Date Inactivated Comments 02/07/2015 9:30 PM 02/18/2015 3:17 AM This order re flects the patients wishes and were consensually agreed upon. Question Answer Comments Discussion of Advance Directives occurred with: Patient/Family Does the patient have a Living Will? No Does the patient have Health Care Power of Attor contreras? No Care Teams Customer Field Representative Relationship Specialty Start Date End Date Tiny Brownlee DO [address] [facility] [place] [address] PCP - General Family Medicine 12/30/21 documented as of this encounter
--- OUTSIDE RECORDS SUMMARY | 2024-05-07 01:03 | External Medical Summary | Summary of Care ---
Author Name Unknown Organization [facility] Address [address] [facility] [place] [address] Phone [phone] Care Team Providers Care Sleep Medicine Physician Name Role Phone Torrie Tinydomingo Pichardo DO Primary Care Provider [phone] Reason for Visit * Reason Comments eRx-Medication Refill Encounter Details Date Type Department Care Team (Late st Contact Info) Description 05/04/2024 Refill Family Practice [facility] [address] [facility] [place] [address] Anthony Thurston MD [address] [place] [address] Recurrent major depressive disorder, in partial remission (HCC) Allergies No known active allergiesdocumented as of this encounter (statuses as of 05/04/2024) Medications Medication Sig Dispensed Refills Start Date End Date Status docusate sodium (COLACE) 100 MG Capsule Take 1 Capsule by mouth 2 times a day as needed for Constipation. 10 Cap 05/24/2018 Active Loratadine 10 MG Oral Tablet (CLARITIN) Take 1 Tablet by mouth in the morning. Active diltiazem 2% 2% [place] GEL Administer 1 Application Dosing Unit into the rectum 2 times a day as needed (rectal pain). 60 mL 12/11/2020 Active Cyclobenzaprine HCl 10 MG Oral Tablet (Flexeril) TAKE ONE TABLET BY MOUTH TWICE DAILY NEEDED FOR MUSCLE SPASMS 20 Tablet 06/18/2022 Active Acetaminophen 325 MG Oral Tablet (Tylenol) Take 2 Tablets by mouth every 6 hours as needed for Pain, Mild. 60 Tablet 01/27/2023 Active Omeprazole 40 MG Oral Capsule Delayed Release (PriLOSEC)Indica tions:Abdominal pain, generalized Take 1 capsule by mouth twice daily 180 Capsule 1 09/30/2023 Active traMADol HCl 50 MG Oral Tablet (Ultram) Take 1 Tablet by mouth 2 times a day as needed for Pain, Moderate or Pain, Severe. 60 Tablet 10/06/2023 Active SUMAtriptan Succinate 50 MG Oral Tablet [...] hours as needed for Nausea. 30 Tablet 11/02/2023 Active DULoxetine HCl 30 MG Oral Capsule Delayed Release Particles (Cymbalta)Indica tions:Current mild episode of major depressive disorder without prior episode (HCC) TAKE 1 CAPSULE BY MOUTH IN THE MORNING ALONG WITH 60 MG CAPSULE FOR TOTAL DAILY DOSE OF 90 MG. DO NOT CUT, CRUSH OR CHEW 90 Capsule 1 11/02/2023 Active Clotrimazole-Bet amethasone 1-0.05 % External Cream Apply to both feet twice daily. 45 g 2 01/06/2024 Active Celecoxib 100 MG Oral Capsule (CeleBREX) TAKE 1 TO 2 CAPSULES BY MOUTH DAILY NEEDED FOR PAIN USE LOWEST DOSE NECESSARY FOR PAIN RELIEF 60 Capsule 2 02/03/2024 Active Lidocaine 5 % External Patch (Lidoderm) daily. 12/04/2023 Active buPROPion HCl ER (XL) 300 MG Oral Tablet Extended Release 24 Hour (Wellbutrin XL)Indications:R ecurrent major depressive disorder, in partial remission (HCC) TAKE 1 TABLET BY MOUTH IN THE MORNING 90 Tablet 1 04/13/2024 Active DULoxetine HCl 60 MG Oral Capsule Delayed Release Particles (Cymbalta)Indica tions:Recurrent major depressive disorder, in partial remission (HCC) TAKE 1 CAPSULE BY MOUTH IN THE MORNING . DO NOT CUT, CRUSH OR CHEW 90 Capsule 1 05/04/2024 Active DULoxetine HCl 60 MG Oral Capsule Delayed Release Particles (Cymbalta)Indica tions:Recurrent major depressive disorder, in partial remission (HCC) TAKE 1 CAPSULE BY MOUTH ONCE DAILY IN THE MORNING (DO NOT CUT, CRUSH OR CHEW) 90 Capsule 1 11/02/2023 05/04/20 24 Discontinued documented as of this encounter (statuses as of 05/04/2024) Active Problems Problem Noted Date Diagnosed Date Worst headache of life 02/17/2024 Anal fistula 10/22/2022 History of pulmonary embolism 02/04/2022 Overview: Related to control Gastroesophageal reflux disease without esophagi tis 12/03/2020 Fibromyalgia 12/03/2020 ANGELIQUE (generalized anxiety disorder) 12/03/2020 Current mild episode of kusum r depressive disorder without prior episode 01/05/2020 documented as of this encounter (statuses as of 05/04/2024) Resolved Problems Problem Noted Date Diagnosed Date Resolved Date Acute pancreatitis 02/08/2015 1 Pulmonary embolism 05/26/2013 8 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 management encounter 05/26/2013 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) 03/27/2021,02/12/2021 Seasonal Influenza Virus Vac cine, Unspecified Formulation 08/05/2022,09/18/2021,09/10/2020,2018,08/19/2017,09/16/2016,11/02/2014,0 08/03/2013,09/01/2011,10/13/2006 Seasonal Influenza, PF, 6 M & above, IM , (FluLaval or Fluzone) 11/02/2023,08/05/2022,09/18/2021,2019,09/01/2019,08/19/2017 Seasonal Influenza, Quadriva lent, No Preserve, IM 09/19/2015 Seasonal Influenza, Split, I IV3, With Preserve, Inj 09/16/2016,11/02/2014,08/03/2013,2010 Seasonal Influenza, Trivalen t, Adjuvanted, 65+ yrs 08/27/2018 TDAP (age 10 and older)(Boostrix) 01/02/2020 TDAP, Age 7 and older, IM (Adacel) 07/24/2011 documented as of this encounter Social [...] money to get more. Never true 11/20/2022 Utilities Answer Date Recorded Do you have trouble paying y our heating, water, or electric bill? (Adult - for ages 18 years and over) Not on file 05/02/2024 Is your family able to pay t he heat, water, or electric bill? (Household - for ages 0-17 years) Not on file 05/02/2024 Does your family have access to good internet? (Household - for ages 0-17 years) Not on file 05/02/2024 Social Connections Answer Date Recorded How often do you feel lonely or isolated from those around you? (Adult - for ages 18 years and over) Not on file 05/02/2024 Sex and Gender Information Value Date Recorded [...] encounter Miscellaneous Notes * Telephone Encounter - Anthony Saldaña RPh - 05/04/2024 1:06 PM EDT Signed Prescriptions: Disp Refills DULoxetine HCl 60 MG Oral Capsule Delayed *90 Cap*1 Sig: TAKE 1 CAPSULE BY MOUTH IN THE MORNING . DO NOT CUT, CRUSH OR CHEWAuthorizing Provider: ANTHONY THURSTON User: ANTHONY SALDAÑA documented in this encounter Plan of Treatment Upcoming Encounters Date Type Department Care Team (Late st Contact Info) Description 06/21/2024 2:40 PM EDT Office Visit Family Practice [address] [place] [address] Tiny Brownlee DO [address] [place] [address] 08/23/2024 9:00 AM EDT Telemedicine Psychiatry, [facility] [address] [place] [address] Davis Borrego CRNP [address] [place] [address] 02/16/2025 1:00 PM EDT Imaging Radiology [facility] 1st [facility] [address] [place] [address] Scheduled Procedures Name Priority Associated Diagnoses Date/Ti me COLONOSCOPY FLEXIBLE PROXIMAL DIAGNOSTIC Recall Screen for colon cancer Health Maintenance Due Date Last Done Comments Hepatitis C Screening 1996 Hepatitis B (1 of 3 - 19+ 3-dose series) 1997 COVID-19 Vaccine ( - 2022- season) 2023 03/27/2021, 02/12/2021 Depression Monitoring 08/05/2023 08/05/2022 Cologuard 2023 Fecal Occult Blood Test 2023 [...] this encounter Medical Devices Implanted Type Area Italian Lecturer Device Identifier Shelf Expiration Date Model / Serial / Lot Lead-11/05/2023 Implanted:11/05 by Yaniv Beckham DO (Quantity not on file) Lead [employer] 06/22/2025 [id number] / [id number] / NA Description:Regroup Therapyi c Lead Kit 50CM #[id number] Beckham at [facility] on 11/05/23 Fibertak Dx Suture [place] With 1.33 Mm Suturetape Implanted:Qty: 2 on 09/05/2021 by Mario Desir DO at OR [facility] Left: Elbow 05/14/2026 [id number] / / [id number] Description:with 1.3 mm Fibe rWire SutureTape and [place] Lead Kit Trial [id number] 50cm - [id number] - [id number] Implanted:Qty: 1 on 09/09/2023 by Jace Puente DO at OR [facility] Right: Back [employer] : PAIN MGMT 05/29/2025 [id number] 50E0 / [id number] / Lead Kit Trial [id number] 50cm - [id number] - [id number] Implanted:Qty: 1 on 09/09/2023 by Jace Puente DO at OR [facility] Left: Back [employer] : PAIN MGMT 06/13/2025 [id number] 50E0 / [id number] / Neurostimulator -11/05/2023 Implanted:11/05 by Yaniv Beckham DO (Quantity not on file) [employer] 04/03/2025 [id number] / [id number] / [id number] Description:Eduardo alexandra Wavewriter Alpha [id number] Implanted at [facility] by Dr Beckham 11/05/23 documented as of this encounter Visit Diagnoses Diagnosis Recurrent major depressive disorder, in partial remission (HCC) documented in this encounter Advance Directives * Full Code [...] Power of Attor contreras? No Care Teams Sleep Medicine Physician Relationship Specialty Start Date End Date Tiny Brownlee DO [address] [place] [address] PCP - General Family Medicine 12/30/21 documented as of this encounter
--- OUTSIDE RECORDS SUMMARY | 2024-05-07 01:03 | External Medical Summary | Summary of Care ---
Author Name Unknown Organization [facility] Address [address] [facility] [place] [address] Phone [phone] Care Team Providers Care Child Care Director Name Role Phone Tiny Brownlee DO Primary Care Provider [phone] Encounter Details Date Type Department Care Team (Latest Contact Info) Description 04/26/2024 10:00 AM EDT Office Visit Audiology [facility] [address] [facility] [place] [address] Nga Helms [facility] [address] [place] [address] Sensorineural hearing loss (SNHL) of left ear with unrestricted hearing of right ear* Allergies No known active allergiesdocumented as of this encounter (statuses as of 04/26/2024) Medications Medication Sig Dispensed Refills Start Date End Date Status docusate sodium (COLACE) 100 MG Capsule Take 1 Capsule by mouth 2 times a day as needed for Constipation. 10 Cap 05/24/2018 Active Loratadine 10 MG Oral Tablet (CLARITIN) Take 1 Tablet by mouth in the morning. Active diltiazem 2% 2% NE GEL Administer 1 Application Dosing Unit into [...] or Pain, Severe. 60 Tablet 10/06/2023 Active DULoxetine HCl 60 MG Oral Capsule [...] OR CHEW 90 Capsule 1 11/02/2023 Active Clotrimazole-Betam ethasone 1-0.05 % External Cream [...] THE MORNING 90 Tablet 1 04/13/2024 Active documented as of this encounter (statuses as of 04/26/2024) Active Problems Problem Noted Date Diagnosed Date Worst headache of life 02/17/2024 Anal fistula 10/22/2022 History of pulmonary embolism 02/04/2022 Overview: Related to control Gastroesophageal reflux disease without esophagi tis 12/03/2020 Fibromyalgia 12/03/2020 ANGELIQUE (generalized anxiety disorder) 12/03/2020 Current mild episode of kusum r depressive disorder without prior episode 01/05/2020 documented as of this encounter (statuses as of 04/26/2024) Resolved Problems Problem Noted Date Diagnosed Date Resolved Date Acute pancreatitis 02/08/2015 Pulmonary embolism 05/26/2013 8 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 management encounter 05/26/2013 07/03/2014 custodial current use of ant icoagulant therapy 05/26/2013 08/19/2017 Overview: ICD-10 update of inactive term 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 - 04/26/2024 10:18 AM EDT Images from the original note were not included. Telma Vann, 43 year old was seen for an audiologic evaluation with a primary complaint of decreased hearing sensitivity and bilateral tinnitus. Referred by: Tiny Brownlee DO Audiologic/Otologic History: Case historian: Patient Hearing loss: reports fluctuating loss of both ears; dome days hearing totally shuts down, never both ears at the same time. No sound awareness. Happens separately than tinnitus episodes Tinnitus: two types (1) non pulsatile, high pitch ringing intermittent, relatively bothersome. (2) pulsatile tinnitus while laying down, bilateral. Aural pressure/otalgia: aural pressure and fullness constant. Intermittent otalgia, reports it is pretty severe-- "piercing pain of air going through ears." Disequilibrium/Vertigo: last episode~ 1 year. Would last days. Eventually got medication for episodes which did help Ear infections: as a child; no tubes or ear surgeries. Denies otorrhea Noise Exposure: uses HPD with power tools Familial Hearing Loss: brother wears hearing aids at age 51 but it is reported he should've gotten them much sooner and sister struggles with vertigo. Grandparents used hearing aids Anival/Vestibulotoxic medication: No Head Injury: reports concussions; last one occurred ~ 2018. Previous audiologic evaluation: N/A Current Hearing Aids: none Procedures and Results Otoscopy: Ear canals are free of occluding cerumen for audiologic testing bilaterally. TMs are intact. Tympanometry 43905 See scanned results Right: WNL for static admittance, tympanometric peak pressure, equivalent volume, and tympanic width("Type A") (ECV 1.0 cc, 2 daPa, 0.56 mmho) Left: WNL for static admittance, tympanometric peak pressure, equivalent volume, and tympanic width("Type A") (ECV 1.0 cc, 2 daPa, 0.57 mmho) Standard Audiometric Testing 59594 ABSD, supra-aural earphones earphones, Good reliability Right: Hearing thresholds are within normal limits Left: Mild sensorineural hearing loss @ 6000 Hz Speech recognition thresholds were consistent with hearing thresholds. Word recognition scores, obtained via monitored live voice were: right 100%, left 96% Impression: Unilateral sensorineural hearing loss Recommendations: Audiology services as needed., Audiologic monitoring of this identified hearing loss, Use of communication strategies and assistive technology in challenging listening situations, and Use of hearing protection when exposed to excessive sound levels, follow up with PCP regarding vestibular concerns and pulsatile tinnitus symptoms to determine need for an ENT referral Neal Bermeo, [facility] Scan: audiogram, tympanograms cc: Tiny Brownlee DO documented in this encounter Plan of Treatment Upcoming Encounters Date Type Department Care Team (Late st Contact Info) Description 04/27/2024 3:00 PM EDT Office Visit Interventional Pain Center, [facility] [address] [place] [address] Jace Puente DO [address] [place] [address] 06/21/2024 2:40 PM EDT Office Visit Family Practice [facility] [address] [place] [address] Tiny Brownlee DO [address] [place] [address] 08/23/2024 9:00 AM EDT Telemedicine Psychiatry, [facility] [address] [place] [address] Davis Borrego CRNP [address] [place] [address] 02/16/2025 1:00 PM EDT Imaging Radiology [facility] [address] [place] [address] Scheduled Procedures Name Priority Associated Diagnoses Date/Ti me COLONOSCOPY FLEXIBLE PROXIMAL DIAGNOSTIC Recall Screen for colon cancer Health Maintenance Due Date Last Done Comments Hepatitis C Screening 1996 Hepatitis B (1 of 3 - 19+ 3-dose series) 1997 COVID-19 Vaccine (2022-24 season) 2023 03/27/2021, 02/12/2021 Depression Monitoring 08/05/2023 [...] this encounter Medical Devices Implanted Type Area Plywood Stock Grader Device Identifier Shelf Expiration Date Model / Serial / Lot Lead-11/05/2023 Implanted:11/05 by Yaniv Beckham DO (Quantity not on file) Lead [employer] JAC[employer] 06/22/2025 SC-8336-50 / [id number] / [id number] Description:[place] Scient[employer] Lead Kit 50CM #[id number] Beckham at [facility] on 11/05/23 Fibertak Dx Suture [place] With 1.33 Mm Suturetape Implanted:Qty: 2 on 09/05/2021 by Mario Desir DO at [facility] Left: Elbow 05/14/2026 [id number] / / [id number] Description:with 1.3 mm Fibe rWire SutureTape and [place] Lead Kit Trial [id number] 50cm - [id number] - [id number] Implanted:Qty: 1 on 09/09/2023 by Jace Puente DO at [facility] Right: Back [employer] : PAIN MGMT 05/29/2025 [id number] 50E0 / [id number] / Lead Kit Trial [id number] 50cm - [id number] - [id number] Implanted:Qty: 1 on 09/09/2023 by Jace Puente DO at [facility] Left: Back [employer] : PAIN MGMT 06/13/2025 [id number] 50E0 / [id number] / Neurostimulator -11/05/2023 Implanted:11/05 by Yaniv Beckham DO (Quantity not on file) [employer] JACQUE 04/03/2025 ND-1232 / [id number] / [id number] Description:[place] Scient[employer] Wavewriter Alpha SC-1232 Implanted at [facility] by Dr Beckham 11/05/23 documented as of this encounter Procedures Procedure Name Priority Date/Time Associated Diagnosis Comments AUDIOMETRIC RESULT 04/26/2024 documented in this encounter Results * AUDIOMETRIC RESULT (04/26/2024) 04/26/2024 [facility] documented in this encounter Visit Diagnoses Diagnosis Sensorineural hearing loss (SNHL) of left ear with unrestricted hearing of right ear- Primary documented in this encounter Advance Directives * [...] Power of Attor contreras? No Care Teams Child Care Director Relationship Specialty Start Date End Date Tiny Brownlee DO [address] [place] [address] PCP - General Family Medicine 12/30/21 documented as of this encounter
--- OUTSIDE RECORDS SUMMARY | 2024-05-07 01:03 | External Medical Summary | Summary of Care ---
Author Name Unknown Organization [facility] Address [address] [facility] [place] [address] Phone [phone] Care Team Providers Care Grain Origination Specialist Name Role Phone VaniaTiny werner Marino BYRD Primary Care Provider [phone] Reason for Visit * Reason Onset Date Comments Referral 03/16/2024 [facility] Pain Encounter Details Date Type Department Care Team (Late st Contact Info) Description 03/16/2024 Telephone Pharmacy Call Center [address] [place] [address] [facility] [address] [place] [address] Referral ([facility] Pain) Allergies No known active allergiesdocumented as of [...] the morning. 0 Active diltiazem 2% 2% MD GEL Administer 1 Application Dosing Unit into [...] External Patch (Lidoderm) daily. 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 05/26/2013 08/19/2017 Overview: ICD-10 update of inactive term 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 Normal , first 10/25/200311/15 Lumbago 12/03/2020 Major depressive disorder Overview: ICD-10 update of inactive term documented as of this encounter (statuses as of 03/31/2024) Immunizations Name Administration Dates Next Due COVID-19 mRNA, LNP-s, No Pre serve, 2-Dose Series ([employer]) 03/27/2021,02/12/2021 Seasonal Influenza Virus Vac cine, Unspecified [...] encounter Miscellaneous Notes * Telephone Encounter - Melanie Nolasco color television console monitor - 03/31/2024 10:04 AM EDT Telma has not contacted the clinic to schedule/reschedule an appointment for pain management per referral from PCP despite multiple attempts to do so by our team. Patient is discharged from [facility] services at this time. Thank you, Melanie Nolasco Director Centralized Clinical Pharmacy Services ([facility]) [phone] 03/31/2024,10:04 AM * Telephone Encounter - Stephanie Baugh RPh - 03/16/2024 10:26 AM EDT Referral reviewed and is appropriate. Please schedule. Initial appt length: 60 minutes Patient referred to [facility] clinic for Pain Management Regimen optimization on behalf of Dr. Brownlee. Referral reviewed and relevant pre-visit information listed below: Pain Follow-up as scheduled. Stephanie Baugh RPh 03/16/2024, 10:26 AM * Telephone Encounter - Vilma Cheung color television console monitor - 03/16/2024 10:23 AM EDT Procedure: PHARMACIST MEDS THERAPY MGMT REFERRAL OP Status: Needs Scheduling (Pdfi-yu-Oymwrep Pending) Requested appt date: Authorizing: Tiny Brownlee DO in [facility] Referral: [id number] (Pending Review) Priority: Within 10 days (routine) Diagnosis: Fibromyalgia [M79.7] Right lumbar radiculopathy [M54.16] Comments Pharmacist Medication Therapy Management: Minimum frequency patient should be seen in person for medication management: as appropriate per clinical condition and patient status By my signature, I understand that my patient Telma Vann will have her medication therapy managed by the [facility] Medication Therapy Disease Management Clinic ([facility]) per established policies, procedures, and protocols. I also certify that this referral may serve as an initiation of service for the management of drug therapy in the above noted patient. [facility] providers will be responsible for scheduling patient visits, obtaining appropriate laboratory studies, and adjusting medication management therapy per patient's need, in addition to those roles spelled out in the clinic policy, procedures, and drug management protocols. I understand that the service provided by the [facility] is voluntary and have informed patient that they can refuse the service at their discretion. I am aware that the [facility] will provide me with a copy of the patient encounter via my BitAnimate. I authorize the [facility] to carry out these activities on my behalf. I consider this program to be a necessary part of the patient's medical care. Tiny Brownlee, DO Order Specific Questions Referral Priority Within 10 days (routine) Where should this appointment be scheduled? [facility] Referring Provider Role: Primary Care Reason for Referral: Pain Pain Diagnosis: Back pain Fibromyalgia Pain Treatment Options: Non-opioids only Pain Treatment Goal: Med Optimization documented in this encounter Plan of Treatment Upcoming Encounters Date Type Department Care Team (Late st Contact Info) Description 04/13/2024 4:15 PM EDT Imaging Radiology [facility] 1st [facility] [address] [facility] [place] [address] 04/14/2024 2:45 PM EDT NeuroDiagnostic Study Neurophysiology [facility] [address] [place] [address] Fitz Leal MD [address] [place] [address] 04/17/2024 11:30 AM EDT Therapy Psychology [facility] [address] [facility] [place] [address] Malorie Medina, [facility] [address] [facility] [place] [address] 04/26/2024 10:00 AM EDT Office Visit Audiology [facility] [address] [place] [address] Nga Helms Au.D. [address] [place] [address] 04/26/2024 2:00 PM EDT Office Visit Podiatry [facility] [address] [place] [address] Pattie Barrera, DPMarino [address] [facility] [place] [address] 04/27/2024 3:00 PM EDT Office Visit Interventional Pain Center, [facility] [address] [place] [address] Jace Puente, DO [address] [place] [id number] 06/21/2024 2:40 PM EDT Office Visit Family Practice [facility] [address] [place] [address] Tiny Brownlee, DO [address] [place] [address] 08/23/2024 9:00 AM EDT Telemedicine Psychiatry, [facility] [address] [place] [address] Davis Borrego CRNP [address] [place] [address] 02/16/2025 1:00 PM EDT Imaging Radiology [facility] 1st [facility] [address] [place] [address] Scheduled Procedures Name Priority Associated Diagnoses Date/Ti [...] this encounter Medical Devices Implanted Type Area Departure Clerk Device Identifier Shelf Expiration Date Model / Serial / Lot Lead-11/05/2023 Implanted:11/05 by Yaniv Beckham, DO (Quantity not on file) Lead [employer] 06/22/2025 SC-8336-50 / [id number] / NA Description:Management Health Solutionsentifi c Lead Kit 50CM #[id number] Beckham at [facility] on 11/05/23 Fibertak Dx Suture [place] With 1.33 Mm Suturetape Implanted:Qty: 2 on 09/05/2021 by Mario Desir DO at OR [facility] Left: Elbow 05/14/2026 [id number]-[id number] / / [id number] Description:with 1.3 mm Fibe rWire SutureTape and [place] Lead Kit Trial [id number] 50cm - [id number] - [id number] Implanted:Qty: 1 on 09/09/2023 by Jace Puente DO at OR [facility] Right: Back [employer] : PAIN MGMT 05/29/2025 [id number] 50E0 / [id number] / Lead Kit Trial [id number] 50cm - [id number] - [id number] Implanted:Qty: 1 on 09/09/2023 by Jace Puente DO at OR [facility] Left: Back [employer] : PAIN MGMT 06/13/2025 [id number] 50E0 / [id number] / Neurostimulator -11/05/2023 Implanted:11/05 by Yaniv Beckham DO (Quantity not on file) [employer] SCIENTIFIC JACQUE 04/03/2025 SC-1232 / [id number] / [id number] Description:[place] Scientifi c Wavewriter Alpha SC-1232 Implanted at [facility] by Dr Beckham 11/05/23 documented as of this encounter Advance Directives Latest Code Status [...] the patient have Health Care Power of Certified Nurse Practitioner? No Care Teams Grain Origination Specialist Relationship Specialty Start Date End Date Tiny Brownlee DO [address] [place] [address] PCP - General Family Medicine 12/30/21 documented as of this encounter
--- OUTSIDE RECORDS SUMMARY | 2024-05-07 01:03 | External Medical Summary | Summary of Care ---
Author Name Unknown Organization [facility] Address [address] [facility] [place] [address] Phone [phone] Care Team Providers Care Buffer Nickel Name Role Phone Torrie Ambardomingo Pichardo DO Primary Care Provider [phone] Reason for Visit * Reason Comments eRx-Medication Refill Encounter Details Date Type Department Care Team (Late st Contact Info) Description 04/12/2024 Refill Family Practice [facility] [place] [address] Anthony Louis MD [address] [place] [address] Recurrent major depressive disorder, in partial remission (HCC) Allergies No known active allergiesdocumented as of this encounter (statuses as of 04/13/2024) Medications Medication Sig Dispensed Refills Start Date End Date Status docusate sodium (COLACE) 100 MG Capsule Take 1 Capsule by mouth 2 times a day as needed for Constipation. 10 Cap 05/24/2018 Active Loratadine 10 MG Oral Tablet (CLARITIN) Take 1 Tablet by mouth in the morning. Active diltiazem 2% 2% AL GEL Administer 1 Application Dosing Unit into [...] THE MORNING 90 Tablet 1 04/13/2024 Active buPROPion HCl ER (XL) 300 MG Oral Tablet Extended Release 24 Hour (Wellbutrin XL)Indications:R ecurrent major depressive disorder, in partial remission (HCC) Take 1 Tablet by mouth in the morning. In the morning.. 90 Tablet 1 11/02/2023 04/13/20 24 Discontinued documented as of this encounter (statuses as of 04/13/2024) Active Problems Problem Noted Date Diagnosed Date Worst headache of life 02/17/2024 Anal fistula 10/22/2022 History of pulmonary embolism 02/04/2022 Overview: Related to control Gastroesophageal reflux disease without esophagi tis 12/03/2020 Fibromyalgia 12/03/2020 ANGELIQUE (generalized anxiety disorder) 12/03/2020 Current mild episode of kusum r depressive disorder without prior episode 01/05/2020 documented as of this encounter (statuses as of 04/13/2024) Resolved Problems Problem Noted Date Diagnosed Date Resolved Date Acute pancreatitis 02/08/2015 1 Pulmonary embolism 05/26/2013 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 management encounter 05/26/2013 07/03/2014 snf current use of ant icoagulant therapy 05/26/2013 08/19/2017 Overview: ICD-10 update of inactive term 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 Normal , first 10/25/200311/15 Lumbago 12/03/2020 Major depressive disorder Overview: ICD-10 update of inactive term documented as of this encounter (statuses as of 04/13/2024) Immunizations Name Administration Dates Next Due COVID-19 mRNA, LNP-s, No Pre serve, 2-Dose Series ([employer]) 03/27/2021,02/12/2021 Seasonal Influenza Virus Vac cine, Unspecified [...] encounter Miscellaneous Notes * Telephone Encounter - Mariya Romero RPh - 04/13/2024 9:27 PM EDT Signed Prescriptions: Disp Refills buPROPion HCl ER (XL) 300 MG Oral Tablet E*90 Tab*1 Sig: TAKE 1 TABLET BY MOUTH IN THE MORNINGAuthorizing Provider: AMBAR BROWNLEE User: MARIYA ROMERO documented in this encounter Plan of Treatment Upcoming Encounters Date Type Department Care Team (Late st Contact Info) Description 04/14/2024 2:45 PM EDT [facility] [address] [place] [address] Fitz Leal MD [address] [place] [address] 04/17/2024 11:30 AM EDT Therapy Psychology [facility] [address] [place] [address] Malorie Medina, IMPORT EXPORT MANAGER [address] [place] [address] 04/26/2024 10:00 AM EDT Office Visit Audiology [facility] [address] [place] [address] Nga Helms Au.D. [address] [place] [address] 04/26/2024 2:00 PM EDT Office Visit Podiatry [facility] [address] [place] [address] Pattie Barrera, DPM [address] [place] [address] 04/27/2024 3:00 PM EDT Office Visit Interventional Pain Center, [facility] [address] [place] [address] Jace Puente, DO [address] [place] [phone] 06/21/2024 2:40 PM EDT Office Visit Family Practice [facility] [address] [place] [address] Ambar Brownlee, DO [address] [place] [address] 08/23/2024 9:00 AM EDT Telemedicine Psychiatry, [facility] [address] [place] [address] Davis Borrego CRNP [address] [place] [address] 02/16/2025 1:00 PM EDT Imaging Radiology [facility] 1st [facility] [address] [place] [address] Scheduled Procedures Name Priority Associated Diagnoses Date/Ti [...] this encounter Medical Devices Implanted Type Area Butt Trimmer Device Identifier Shelf Expiration Date Model / Serial / Lot Lead-11/05/2023 Implanted:11/05 by Yaniv Beckham, DO (Quantity not on file) Lead [employer] 06/22/2025 SC-8336-50 / [id number] / NA Description:Beyond the R[employer]ifi c Lead Kit 50CM #[id number]ham at [facility] on 11/05/23 Fibertak Dx Suture [place] With 1.33 Mm Suturetape Implanted:Qty: 2 on 09/05/2021 by Mario Desir DO at [facility] Left: Elbow 05/14/2026 [id number] / / [id number] Description:with 1.3 mm Fibe rWire SutureTape and [place] Lead Kit Trial [id number] 50cm - [id number] - [id number] Implanted:Qty: 1 on 09/09/2023 by Jace Puente DO at OR [facility] Right: Back [employer] : PAIN MGMT 05/29/2025 [id number] 50E0 / [id number] / Lead Kit Trial [id number] 50cm - [id number] - [id number] Implanted:Qty: 1 on 09/09/2023 by Jace Puente DO at OR [facility] Left: Back [employer] : PAIN MGMT 06/13/2025 [id number] 50E0 / [id number] / Neurostimulator -11/05/2023 Implanted:11/05 by Yaniv Beckham DO (Quantity not on file) [employer]k JACQUE 04/03/2025 MD-1232 / [id number] / [id number] Description:Beyond the Rackentifi c Wavewriter Alpha SC-[address] [facility] [address] Beckham 11/05/23 documented as [...] Power of Attor contreras? No Care Teams Buffer Nickel Relationship Specialty Start Date End Date Ambar Brownlee DO [address] [place] [address] PCP - General Family Medicine 12/30/21 documented as of this encounter
--- OUTSIDE RECORDS SUMMARY | 2024-05-07 01:03 | External Medical Summary | Summary of Care ---
Author Name Unknown Organization [facility] Address [address] [facility] [place] [address] Phone [phone] Care Team Providers Care Blemish Remover Name Role Phone VaniaTiny werner Marino BYRD Primary Care Provider [phone] Reason for Visit * Reason Onset Date Comments Referral 03/16/2024 [facility] Pain Encounter Details Date Type Department Care Team (Late st Contact Info) Description 03/16/2024 Telephone Pharmacy Call Center [address] [place] [address] [facility] [address] [place] [address] Referral ([facility] Pain) Allergies No known active allergiesdocumented as [...] the morning. 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 Surendra Porter [facility] Clinical Pharmacist 03/31/2024, 10:27 AM * Telephone Encounter - Melanie Nolasco machine binder stripper - 03/31/2024 10:04 AM EDT Telma has not contacted the clinic to schedule/reschedule an appointment for pain management per referral from PCP despite multiple attempts to do so by our team. Patient is discharged from [facility] services at this time. Thank you, Melanie Nolasco Paste Maker [facility] [phone] 03/31/2024,10:04 AM * Telephone Encounter - Stephanie Baugh RPh - 03/16/2024 10:26 AM EDT Referral reviewed and is appropriate. Please schedule. Initial appt length: 60 minutes Patient referred to [facility] clinic for Pain Management Regimen optimization on behalf of Dr. Brownlee. Referral reviewed and relevant pre-visit information listed below: Pain Follow-up as scheduled. Stephanie Baugh RPh 03/16/2024, 10:26 AM * Telephone Encounter - Vilma Cheung machine binder stripper - 03/16/2024 10:23 AM EDT Procedure: PHARMACIST MEDS THERAPY MGMT REFERRAL OP Status: Needs Scheduling (Hriq-[id number]-Jjlsyax Pending) Requested appt date: Authorizing: Tiny Brownlee DO in [facility] Referral: [id number] (Pending Review) Priority: Within 10 days (routine) Diagnosis: Fibromyalgia [M79.7] Right lumbar radiculopathy [M54.16] Comments Pharmacist Medication Therapy Management: Minimum frequency patient should be seen in person for medication management: as appropriate per clinical condition and patient status By my signature, I understand that my patient Telma Vann will have her medication therapy managed by the [facility] Medication Therapy Disease Management Clinic ([facility]) per established policies, procedures, and protocols. I also certify that this referral may serve as an initiation of service for the management of drug therapy in the above noted patient. [facility] providers will be responsible for scheduling patient visits, obtaining appropriate laboratory studies, and adjusting medication management therapy per patient's need, in addition to those roles spelled out in the clinic policy, procedures, and drug management protocols. I understand that the service provided by the [facility] Clinic is voluntary and have informed patient that they can refuse the service at their discretion. I am aware that the [facility] Clinic will provide me with a copy of the patient encounter via my LightUp. I authorize the [facility] Clinic to carry out these activities on my behalf. I consider this program to be a necessary part of the patient's medical care. Tiny Brownlee DO Order Specific Questions Referral Priority Within 10 days (routine) Where should this appointment be scheduled? [facility] Referring Provider Role: Primary Care Reason for Referral: Pain Pain Diagnosis: Back pain Fibromyalgia Pain Treatment Options: Non-opioids only Pain Treatment Goal: Med Optimization documented in this encounter Plan of Treatment Upcoming Encounters Date Type Department Care Team (Late st Contact Info) Description 04/13/2024 4:15 PM EDT Imaging Radiology [facility] [address] [facility] [place] [address] 04/14/2024 2:45 PM EDT NeuroDiagnostic Study Neurophysiology [address] [place] [address] [place] [address] Fitz Leal MD [address] [place] [address] 04/17/2024 11:30 AM EDT Therapy Psychology [facility] [address] [place], [place] [address] Malorie Medina, JANITOR AND CLEANER [address] [place] [address] 04/26/2024 10:00 AM EDT Office Visit Audiology [facility] [address] [place] [address] Nga Helms Au.D. [address] [place] [address] 04/26/2024 2:00 PM EDT Office Visit Podiatry [facility] [address] [place] [address] Pattie Barrera, DPM [address] [facility] [place] [address] 04/27/2024 3:00 PM EDT Office Visit Interventional Pain Center, [facility] [address] [place] [address] Jace Puente, DO [address] [place] [id number] 06/21/2024 2:40 PM EDT Office Visit Family Practice [facility] [address] [place] [address] Tiny Brownlee, DO [address] [place] [address] 08/23/2024 9:00 AM EDT Telemedicine Psychiatry, [facility] [address] [place] [address] Davis Borrego CRNP [address] [place] [address] 02/16/2025 1:00 PM EDT Imaging Radiology [facility] [place] [address] [place] [address] Scheduled Procedures Name Priority Associated Diagnoses Date/Ti [...] this encounter Medical Devices Implanted Type Area Senior Sql Server Dba Device Identifier Shelf Expiration Date Model / Serial / Lot Lead-11/05/2023 Implanted:11/05 by Yaniv Beckham DO (Quantity not on file) Lead [employer] JACQUE 06/22/2025 [id number] / [id number] / NA Description:Willmar Scientifi c Lead Kit 50CM #[id number] Beckham at [facility] on 11/05/23 Fibertak Dx Suture [place] With 1.33 Mm Suturetape Implanted:Qty: 2 on 09/05/2021 by Mario Desir DO at OR [facility] Left: Elbow 05/14/2026 [id number] / / [id number] Description:with 1.3 mm Fibe rWire SutureTape and [place] Lead Kit Trial [id number] 50cm - [id number] - [id number] Implanted:Qty: 1 on 09/09/2023 by Jace Puente DO at OR [facility] Right: Back [employer] : PAIN MGMT 05/29/2025 [id number] 50E0 / [id number] / Lead Kit Trial [id number] 50cm - [id number] - [id number] Implanted:Qty: 1 on 09/09/2023 by Jace Puente DO at OR [facility] Left: Back [employer] : PAIN MGMT 06/13/2025 [id number] 50E0 / [id number] / Neurostimulator -11/05/2023 Implanted:11/05 by Yaniv Beckham DO (Quantity not on file) [employer] JAC[employer] 04/03/2025 SC-1232 / [id number] / [id number] Description:Willmar Scientifi c Wavewriter Alpha SC-1232 Implanted at [facility] by Dr Beckham 11/05/23 documented as [...] the patient have Health Care Power of Cleat Layer? No Care Teams Blemish Remover Relationship Specialty Start Date End Date Tiny Brownlee DO [address] [place] [address] PCP - General Family Medicine 12/30/21 documented as of this encounter
--- OUTSIDE RECORDS SUMMARY | 2024-05-07 01:03 | External Medical Summary | Summary of Care ---
Author Name Unknown Organization [facility] Address [address] [facility] [place] [address] Phone [phone] Care Team Providers Care Car Rental Agent Name Role Phone NevilleTiny phillips Marino BYRD Primary Care Provider [phone] Reason for Visit * Reason Onset Date Comments Order Request 12/22/2023 Pre MRI x-ray Encounter Details Date Type Department Care Team (Late st Contact Info) Description 12/22/2023 Telephone Radiology [address], [address] [place] [address] Trice Crowley, RT (R) Order Request (Pre MRI x-ray) Allergies No known active allergiesdocumented as of this encounter (statuses as of 03/22/2024) Medications Medication Sig Dispensed Refills Start Date End Date Status docusate sodium (COLACE) 100 MG Capsule Take 1 Capsule by mouth 2 times a day as needed for Constipation. 10 Cap 0 8 Active Loratadine 10 MG Oral Tablet (CLARITIN) Take 1 Tablet by mouth in the morning. 0 Active diltiazem 2% 2% ME GEL Administer 1 Application Dosing Unit into the rectum 2 times a day as needed (rectal pain). 60 mL 0 1 Active Cyclobenzaprine HCl 10 MG Oral Tablet (Flexeril) TAKE ONE TABLET BY MOUTH TWICE DAILY NEEDED FOR MUSCLE SPASMS 20 Tablet 0 2 Active Acetaminophen 325 MG Oral Tablet (Tylenol) Take 2 Tablets by mouth every 6 hours as needed for Pain, Mild. 60 Tablet 0 3 Active Omeprazole 40 MG Oral Capsule Delayed Release (PriLOSEC)Indica tions:Abdominal pain, generalized Take 1 capsule by mouth twice daily 180 Capsule 1 3 Active traMADol HCl 50 MG Oral Tablet (Ultram) Take 1 Tablet by mouth 2 times a day as needed for Pain, Moderate or Pain, Severe. 60 Tablet 0 3 Active buPROPion HCl ER (XL) 300 [...] as needed for Nausea. 30 Tablet 0 3 Active DULoxetine HCl 30 MG Oral [...] as of this encounter (statuses as of 03/22/2024) Active Problems Problem Noted Date Diagnosed Date Worst headache of life 02/17/2024 Anal fistula 10/22/2022 History of pulmonary embolism 02/04/2022 Overview: Related to control Gastroesophageal reflux disease without esophagi tis 12/03/2020 Fibromyalgia 12/03/2020 ANGELIQUE (generalized anxiety disorder) 12/03/2020 Current mild episode of kusum r depressive disorder without prior episode 01/05/2020 documented as of this encounter (statuses as of 03/22/2024) Resolved Problems Problem Noted Date Diagnosed Date Resolved Date Acute pancreatitis 02/08/2015 1 Pulmonary embolism 05/26/2013 8 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 management encounter 05/26/2013 07/03/2014 assisted current use of ant icoagulant therapy 05/26/2013 08/19/2017 Overview: ICD-10 update of inactive term 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 Normal , first 10/25/200311/15 Lumbago 12/03/2020 Major depressive disorder Overview: ICD-10 update of inactive term documented as of this encounter (statuses as of 03/22/2024) Immunizations Name Administration Dates Next Due COVID-19 mRNA, LNP-s, No Pre serve, 2-Dose Series (HapBoo) 03/27/2021,02/12/2021 Seasonal Influenza Virus Vac cine, Unspecified [...] encounter Miscellaneous Notes * Telephone Encounter - Malorie Brown CRNP - 12/23/2023 8:25 AM EST Ordered 2 view thoracolumbar xray to check spine stimulator prior to mri per radiology request documented in this encounter Plan of Treatment Upcoming Encounters Date Type Department Care Team (Late st Contact Info) Description 04/13/2024 4:15 PM EDT Imaging Radiology [facility] [address] [place] [address] 04/14/2024 2:45 PM EDT NeuroDiagnostic Study Neurophysiology [facility] [address] [facility] [place] [address] Fitz Leal MD [address] [facility] [place] [address] 04/17/2024 11:30 AM EDT Therapy Psychology [facility] [address] [place] [address] Malorie Medina, MEDICAL ASSISTANT [address] [place] [address] 04/26/2024 10:00 AM EDT Office Visit Audiology [facility] [address] [place] [address] Nga Helms Au.D. [address] [place] [address] 04/26/2024 2:00 PM EDT Office Visit Podiatry [facility] [address] [place] [address] Pattie Barrera, DPMarino [address] [facility] [place] [address] 04/27/2024 3:00 PM EDT Office Visit Interventional Pain Center, [facility] [address] [place] [address] Jace Puente, DO [address] [place] [phone] 06/21/2024 2:40 PM EDT Office Visit Family Practice [facility] [address] [place] [address] Tiny Brownlee, DO [address] [place] [address] 08/23/2024 9:00 AM EDT Telemedicine Psychiatry, [facility] [address] [place] [address] Davis Borrego CRNP [address] [place] [address] 02/16/2025 1:00 PM EDT Imaging Radiology [facility] [address] [facility] [place] [address] Scheduled Procedures Name Priority Associated Diagnoses Date/Ti me COLONOSCOPY FLEXIBLE PROXIMAL DIAGNOSTIC Recall Screen for colon cancer Health Maintenance Due Date Last Done Comments Hepatitis C Screening 1996 Hepatitis B (1 of 3 - 19+ 3-dose series) 1997 Depression, Most Recent Score >= 10 (will fire each visit until score < 10) 08/06/2022 08/05/2022 COVID-19 Vaccine ( season) 2023 03/27/2021, 02/12/2021 Cologuard 2023 Fecal [...] this encounter Medical Devices Implanted Type Area Strap Making Machine Operator Device Identifier Shelf Expiration Date Model / Serial / Lot Lead-11/05/2023 Implanted:11/05 by Yaniv Beckham DO (Quantity not on file) Lead [employer] JACQUE 06/22/2025 SC-8336-50 / [id number] / NA Description:Photocollect c Lead Kit 50CM #[id number] Beckham at [facility] on 11/05/23 Fibertak Dx Suture [place] With 1.33 Mm Suturetape Implanted:Qty: 2 on 09/05/2021 by Mario Desir DO at [facility] Left: Elbow 05/14/2026 [id number]-[id number] / / [id number] Description:with 1.3 mm Fibe rWire SutureTape and [place] Lead Kit Trial [id number] 50cm - [id number] - [id number] Implanted:Qty: 1 on 09/09/2023 by Jace Puente DO at OR [facility] Right: Back [employer] : PAIN MGMT 05/29/2025 [id number] 50E0 / [id number] / Lead Kit Trial [id number] 50cm - [id number] - [id number] Implanted:Qty: 1 on 09/09/2023 by Jace Puente DO at OR [facility] Left: Back [employer] : PAIN MGMT 06/13/2025 [id number] 50E0 / [id number] / Neurostimulator -11/05/2023 Implanted:11/05 by Yaniv Beckham DO (Quantity not on file) [employer] JACQUE 04/03/2025 SC-1232 / [id number] / [id number] Description:INMAN Scientifi c Wavewriter Alpha SC-1232 Implanted at [facility] by Dr Beckham 11/05/23 documented as of this encounter Procedures Procedure Name Priority Date/Time Associated Diagnosis Comments XR THORACOLUMBAR SPINE MIN 2 VIEWS Routine 01/11/2024 6:27 PM EST Renal lesion documented in this encounter Results * XR THORACOLUMBAR SPINE MIN 2 VIEWS (01/11/2024 6:27 PM EST) Anatomical Region Laterality Modality Vertebra, Spine, Tspine, Lspine Digital Radiography 01/11/2024 6:55 PM EST Impressions 01/11/2024 6:53 PM EST IMPRESSION As above. Narrative 01/11/2024 6:53 PM EST EXAM XR THORACOLUMBAR SPINE MIN 2 VIEWS,01/11/2024 6:27 pm HISTORY 43 y/o withpre mri spinal stimulator in place COMPARISON None. TECHNIQUE AP and lateral views of the lumbar spine. FINDINGS Dorsal column stimulator terminates at the T8-T9 level. The leads appear contiguous/intact. Mild endplate osteophyte formation and several small chronic Schmorl's nodes noted in the mid to lower thoracic spine. Mild endplate osteophyte formation in the lumbar spine. There is posterior spinal fusion hardware on the left at the lumbosacral junction, partially visualized and grossly unremarkable. No significant soft tissue abnormality. Procedure Note Von Kilpatrick MD - 01/11/2024 EXAM XR THORACOLUMBAR SPINE MIN 2 VIEWS,01/11/2024 6:27 pm HISTORY 43 y/o withpre mri spinal stimulator in place COMPARISON None. TECHNIQUE AP and lateral views of the lumbar spine. FINDINGS Dorsal column stimulator terminates at the T8-T9 level. The leads appearcontiguous/intact. Mild endplate osteophyte formation and several smallchronic Schmorl's nodes noted in the mid to lower thoracic spine. Mildendplate osteophyte formation in the lumbar spine. There is posteriorspinal fusion hardware on the left at the lumbosacral junction, partiallyvisualized and grossly unremarkable. No significant soft tissueabnormality. IMPRESSION IMPRESSION As above. Malorie [facility] (RAD GEN ERAL) documented in this encounter Visit Diagnoses Diagnosis Renal lesion- Primary Unspecified disorder of kidney and ureter documented in this encounter Advance Directives Latest [...] the patient have Health Care Power of Balance Bridge Assembler? No Care Teams Car Rental Agent Relationship Specialty Start Date End Date Tiny Brownlee DO [address] [facility] [place] [address] PCP - General Family Medicine 12/30/21 documented as of this encounter
--- OUTSIDE RECORDS SUMMARY | 2024-05-07 01:04 | External Medical Summary | Summary of Care ---
Author Name Unknown Organization [facility] Address [address] [facility] [place] [address] Phone [phone] Care Team Providers Care Busher Helper Name Role Phone Torrie Tinydomingo Pichardo DO Primary Care Provider [phone] Reason for Referral * Precert (Within 10 days (routine)) - Pending Review Specialty Diagnoses / Procedures Referred By Jimmy conley Referred To Contact Radiology Diagnoses Right foot pain Peroneal tendinitis of right lower extremity Pain of right heel Procedures MRI ANKLE RIGHT WO CONTRAST Pattie Barrera DPM [address] [place] [address] Referral ID Status Reason Start Date Expiration Date V isits Requested Visits Authorized [id number] Pending Review 03/21/2024 999 999 Reason for Visit * Reason Comments Follow Up Nails Encounter Details Date Type Department Care Team (Late st Contact Info) Description 03/20/2024 1:00 PM EDT Office Visit Podiatry [facility] [address] [facility] [place] [address] Pattie Barrera DPM [address] [place] [address] Right foot pain*; Peroneal tendinitis of right lower extremity; Pain of right heel; Bilateral bunions; Onychomycosis Allergies No known active allergiesdocumented as of this encounter (statuses as of 03/20/2024) Medications Medication Sig Dispensed Refills Start Date End Date Status docusate sodium (COLACE) 100 MG Capsule Take 1 Capsule by mouth 2 times a day as needed for Constipation. 10 Cap 0 05/24/2018 Active Loratadine 10 MG Oral Tablet (CLARITIN) Take 1 Tablet by mouth in the morning. 0 Active diltiazem 2% 2% FL GEL Administer 1 Application Dosing Unit into [...] as of this encounter (statuses as of 03/20/2024) Active Problems Problem Noted Date Diagnosed Date Worst headache of life 02/17/2024 Anal fistula 10/22/2022 History of pulmonary embolism 02/04/2022 Overview: Related to control Gastroesophageal reflux disease without esophagi tis 12/03/2020 Fibromyalgia 12/03/2020 ANGELIQUE (generalized anxiety disorder) 12/03/2020 Current mild episode of kusum r depressive disorder without prior episode 01/05/2020 documented as of this encounter (statuses as of 03/20/2024) Resolved Problems Problem Noted Date Diagnosed Date Resolved Date Acute pancreatitis 02/08/2015 1 Pulmonary embolism 05/26/2013 8 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 management encounter 05/26/2013 07/03/2014 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 long term care current use of ant icoagulant therapy 05/26/2013 08/19/2017 Overview: ICD-10 update of inactive term 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 Normal , first 10/25/200311/15 Lumbago 12/03/2020 Major depressive disorder Overview: ICD-10 update of inactive term documented as of this encounter (statuses as of 03/20/2024) Immunizations Name Administration Dates Next Due COVID-19 mRNA, LNP-s, No Pre serve, 2-Dose Series ([employer]) 03/27/2021,02/12/2021 Seasonal Influenza Virus Vac cine, Unspecified [...] as of this encounter Progress Notes * Pattie Barrera, DPM - 03/20/2024 1:57 PM EDT Podiatry Established Note [facility] Name: Telma Vann : 1980 Date: 03/20/2024 REASON FOR VISIT: follow up foot pain SUBJECTIVE: This patient is a 43 year old female who presents today for follow up of foot pain. Sheis accompanied by her significant other. I had seen Telma in July 2023. I injected the heels which did not seem to help. She feels her right heel has worsened. She notes pain to the lateral foot.The touch of a bed sheet can aggravate this. She also notes an increase in her bunion pain. She has some lower lumbar issues and had a spinal stimulator placed which has helped her some. She does take Celebrex. She also had been on a prednisone taper which did not seem to help at all. She reports improvement in her toenails/skin with PO Lamisil. She questions if some residual thickness is presentto the fourth toenails and left first toenail. Today, Telma also reports being worked up by rheumatology in [place]. She has a family history of RA- multiple siblings. Past Medical History: Diagnosis Date Back pain with history of spinal surgery Benign neoplasm of colon 12/16/2011 biopsies taken to check for microscopic colitis, hemorroids, normal biopsy, most likely symptoms related to irritable bowel syndrome Depressive disorder, not elsewhere classified 1997 Fibromyalgia 12/03/2020 Fistula ANGELIQUE (generalized anxiety disorder) 12/03/2020 Gastroesophageal reflux disease without esophagitis 12/03/2020 H/O degenerative disc disease Lumbago 2004 Migraine without aura Pulmonary embolism (HCC) 05/21/2013 right lung Spinal stenosis ALLERGIES: Review of patient's allergies indicates: No Known Allergies REVIEW OF SYSTEMS: CONSTITUTIONAL: No fevers, sweats, or chills FOCUSED PODIATRIC EXAM: Vascular: Pedal pulses palpable including dorsalis pedis and posterior tibial artery at 2/4 bilaterally. Capillary refill time is within normal limits to all toes. No significant pre-tibial edema noted. No warmth. Neurologic: Sensation (light touch) intact to the right. She is able to detect 5.07 [place] monofilament to the right foot. Numbness reported to the medial hallux right. Musculoskeletal: Pain is noted with palpation of the base of the 5th metatarsal extending proximally along the course of the peroneal tendons but below the tip of the fibula. No pain with motion of the foot and ankle. No significant weakness. Bunion noted to both feet with pain reported on the right. Pain also reported to the right tarsal tunnel and right medial heel. Dermatological: Skin temperature, texture, and turgor are within normal limits. No open lesions. There is no erythema or ecchymosis noted. DIAGNOSTIC STUDIES: X-ray, right foot, 08/06/2023, reviewed in previous encounter This includes three weight bearing x-rays AP MO and Lateral. No significant soft tissue findings. Bi partite fibular and tibial sesamoid with bunion on AP view. Lateral view shows small plantar calcaneal enthesopathy. ASSESSMENT: 1. Right foot pain 2. Peroneal tendinitis of right lower extremity 3. Pain of right heel 4. Bilateral bunions 5. Onychomycosis PLAN: Toenails and skin appear improved. We discussed if they change, we can consider labs and extension on PO Lamisil. As far as her right foot pain. This seems to have worsened and is now more isolated to the right lateral foot. I suspect she may have peroneal tendon pathology and or sural nerve irritation. Nurse toprovide immobilizing camwalker for this extremity. Telma was instructed to remove to sleep, shower, and if driving. She takes an NSAID and had completed at home exercises > 6 weeks, twice daily since her last appointment. She failed prednisone and a steroid injection of the right heel. Because ofher level of pain, I placed an order for a right ankle MRI. She reports her spine stimulator is MRIcompatible. She has to turn it off at the time though. I also placed an order for EMG studies givenback history, numbness to the right first toe (although may be bunion related), and sensitivity of heel and lateral heel region. Follow up: after both studies Pattie Barrera DPM documented in this encounter Nursing Notes * Carol Bonilla LPN - 03/20/2024 1:12 PM EDT Pt presents for follow up, received steroid injection R foot 07/2023, not helpful. Has used Lamisil cream, then PO pills. States saw improvement with the pills. documented in this encounter Plan of Treatment Upcoming Encounters Date Type Department Care Team (Late st Contact Info) Description 04/13/2024 4:15 PM EDT Imaging Radiology [facility] 1st [facility] [address] [facility] [place] [address] 04/14/2024 2:45 PM EDT NeuroDiagnostic Study Neurophysiology [address] [place] [address] [place] [address] Fitz Leal MD 200 [facility] [place] [address] 04/17/2024 11:30 AM EDT Therapy Psychology [address] [place] [address] Malorie Medina, HUMAN RESOURCES MANAGER [address] [place] [address] 04/26/2024 10:00 AM EDT Office Visit Audiology [facility] [address] [place] [address] Nga Helms Au.D. [address] [place] [address] 04/26/2024 2:00 PM EDT Office Visit Podiatry [facility] [address] [place] [address] Pattie Barrera, DPM [address] [facility] [place] [address] 04/27/2024 3:00 PM EDT Office Visit Interventional Pain Center, [facility] [address] [place] [address] Jace Puente, DO [address] [place] [address] 06/21/2024 2:40 PM EDT Office Visit Family Practice [facility] [address] [place] [address] Tiny Brownlee, DO [address] [place] [address] 08/23/2024 9:00 AM EDT Telemedicine Psychiatry, [facility] [address] [place] [address] Davis Borrego CRNP [address] [place] [address] 02/16/2025 1:00 PM EDT Imaging Radiology [facility] [address] [place] [address] Scheduled Orders Name Type Priority Associated Diagnoses Orde r Schedule MRI ANKLE RIGHT WO CONTRAST Medical Imaging Routine Right foot pain Peroneal tendinitis of right lower extremity Pain of right heel Expected: 03/21/2024, Expires: 04/20/2025 Scheduled Procedures Name Priority Associated Diagnoses Date/Ti [...] this encounter Medical Devices Implanted Type Area Miniature Train Driver Device Identifier Shelf Expiration Date Model / Serial / Lot Lead-11/05/2023 Implanted:11/05 by Yaniv Beckham DO (Quantity not on file) Lead [employer] 06/22/2025 SC-8336-50 / [id number] / NA Description:[employer] Lead Kit 50CM #[id number] Beckham at [facility] on 11/05/23 Fibertak Dx Suture [place] With 1.33 Mm Suturetape Implanted:Qty: 2 on 09/05/2021 by Mario Desir DO at OR [facility] Left: Elbow 05/14/2026 [id number]-[id number] / / [id number] Description:with 1.3 mm Fibe rWire SutureTape and [place] Lead Kit Trial [id number] 50cm - [id number] - [id number] Implanted:Qty: 1 on 09/09/2023 by Jace Puente DO at OR [facility] Right: Back [employer] : PAIN MGMT 05/29/2025 [id number] / [id number] / Lead Kit Trial [id number] 50cm - [id number] - [id number] Implanted:Qty: 1 on 09/09/2023 by Jace Puente DO at OR [facility] Left: Back [employer] : PAIN MGMT 06/13/2025 [id number] 50E0 / [id number] / Neurostimulator -11/05/2023 Implanted:11/05 by Yaniv Beckham DO (Quantity not on file) [employer] 04/03/2025 SC-1232 / [id number] / [id number] Description:[employer] Wavewriter Alpha SC-1232 Implanted at [facility] by Dr Beckham 11/05/23 documented as of this encounter Visit Diagnoses Diagnosis Right foot pain- Primary Pain in limb Peroneal tendinitis of right lower extremity Other enthesopathy of ankle and tarsus Pain of right heel Pain in limb Bilateral bunions Bunion Onychomycosis Dermatophytosis of nail documented in this encounter Advance Directives Latest [...] the patient have Health Care Power of Management Advisor? No Care Teams Busher Helper Relationship Specialty Start Date End Date Tiny Brownlee DO [address] [facility] [place] [address] PCP - General Family Medicine 12/30/21 documented as of this encounter
--- OUTSIDE RECORDS SUMMARY | 2024-05-07 01:04 | External Medical Summary | Summary of Care ---
Author Name Unknown Organization [facility] Address [address] [place] [address] Phone [phone] Care Team Providers Care Senior Quality Technician Name Role Phone Tiny Brownlee DO Primary Care Provider [phone] Reason for Visit * Reason Onset Date Comments Appointment 03/06/2024 Encounter Details Date Type Department Care Team (Late st Contact Info) Description 03/06/2024 Telephone Audiology [facility] [address] [place] [address] Services, Scheduling [address] [place] [address] Appointment Allergies No known active allergiesdocumented as of this encounter (statuses as of 03/06/2024) Medications Medication Sig Dispensed Refills Start Date End Date Status docusate sodium (COLACE) 100 MG Capsule Take 1 Capsule by mouth 2 times a day as needed for Constipation. 10 Cap 0 05/24/2018 Active Loratadine 10 MG Oral Tablet (CLARITIN) Take 1 Tablet by mouth in the morning. 0 Active diltiazem 2% 2% GA GEL Administer 1 Application Dosing Unit into [...] Pain, Mild. 60 Tablet 0 01/27/2023 Active Terbinafine HCl 250 MG Oral Tablet Take 1 Tablet by mouth in the morning. 45 Tablet 1 09/10/2023 Active Additional Information Patient not taking.Reported on 02/17/2024 Omeprazole 40 MG Oral Capsule Delayed Release [...] PAIN RELIEF 60 Capsule 2 02/03/2024 Active Azithromycin 250 MG Oral Tablet (Zithromax Z-Basilio)Indications: Acute sinusitis, recurrence not specified, unspecified location Take two tablets by mouth on first day, then 1 tablet daily until gone 6 Tablet 0 02/14/2024 Active documented as of this encounter (statuses as of 03/06/2024) Active Problems Problem Noted Date Diagnosed Date Worst headache of life 02/17/2024 Anal fistula 10/22/2022 History of pulmonary embolism 02/04/2022 Overview: Related to control Gastroesophageal reflux disease without esophagi tis 12/03/2020 Fibromyalgia 12/03/2020 ANGELIQUE (generalized anxiety disorder) 12/03/2020 Current mild episode of kusum r depressive disorder without prior episode 01/05/2020 documented as of this encounter (statuses as of 03/06/2024) Resolved Problems Problem Noted Date Diagnosed Date Resolved Date Acute pancreatitis 02/08/2015 1 Pulmonary embolism 05/26/2013 8 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 management encounter 05/26/2013 07/03/2014 [facility] current use of ant icoagulant therapy 05/26/2013 08/19/2017 Overview: ICD-10 update of inactive term 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 ALLISON Lugo * Telephone Encounter - Tonia Reich OSA - 03/06/2024 2:51 PM EDT Called pt and LMOM for a return call to schedule. ALLISON Lugo * Telephone Encounter - Nargis Ro OSA - 03/06/2024 2:07 PM EDT Pt looking to schedule for her and her for audiology. Please call pt. documented in this encounter Plan of Treatment Upcoming Encounters Date Type Department Care Team (Late st Contact Info) Description 03/15/2024 3:40 PM EDT Office Visit Family Practice [facility] [address] [place] [address] Tiny Brownlee DO [address] [place] [address] 03/20/2024 1:00 PM EDT Office Visit Podiatry [facility] [address] [place] [address] Pattie Barrera, DPM [address] [facility] [place] [address] 04/26/2024 10:00 AM EDT Office Visit Audiology [facility] [address] [place] [address] Nga Helms Au.D. [address] [place] [address] 04/27/2024 3:00 PM EDT Office Visit Interventional Pain Center, [facility] [address] [place] [address] Jace Puente, DO [address] [place] [phone] 06/21/2024 2:40 PM EDT Office Visit Family Practice [facility] [address] [place] [address] Tiny Brownlee, DO [address] [place] [address] 02/16/2025 1:00 PM EDT Imaging Radiology [facility] 1st Floor, [place] [address] [place] [address] Scheduled Procedures Name Priority Associated Diagnoses Date/Ti [...] this encounter Medical Devices Implanted Type Area Upper Cutter Device Identifier Shelf Expiration Date Model / Serial / Lot Lead-11/05/2023 Implanted:11/05 by Yaniv Beckham DO (Quantity not on file) Lead [employer] 06/22/2025 SC-8336-50 / [id number] / NA Description:[employer] c Lead Kit 50CM #[id number] Beckham at [facility] on 11/05/23 Fibertak Dx Suture [place] With 1.33 Mm Suturetape Implanted:Qty: 2 on 09/05/2021 by Mario Desir DO at OR [facility] Left: Elbow 05/14/2026 [id number]-[id number] / / [id number] Description:with 1.3 mm Fibe rWire SutureTape and [place] Lead Kit Trial [id number] 50cm - [id number] - [id number] Implanted:Qty: 1 on 09/09/2023 by Jace Puente DO at OR [facility] Right: Back [employer] : PAIN MGMT 05/29/2025 [id number] 50E0 / [id number] / Lead Kit Trial [id number] 50cm - [id number] - [id number] Implanted:Qty: 1 on 09/09/2023 by Jace Puente DO at OR [facility] Left: Back [employer] : PAIN MGMT 06/13/2025 [id number] 50E0 / [id number] / Neurostimulator -11/05/2023 Implanted:11/05 by Yaniv Beckham DO (Quantity not on file) [employer] JACQUE 04/03/2025 SC-1232 / [id number] / [id number] Description:[email or web address] Scient[employer] Wavewriter Alpha SC-1232 Implanted at [facility] by Dr Beckham 11/05/23 documented as [...] the patient have Health Care Power of [place] Police Lieutenant? No Care Teams Senior Quality Technician Relationship Specialty Start Date End Date Tiny Brownlee DO [address] [place] [address] PCP - General Family Medicine 12/30/21 documented as of this encounter
--- OUTSIDE RECORDS SUMMARY | 2024-05-07 01:04 | External Medical Summary | Summary of Care ---
Author Name Unknown Organization [facility] Address [address] [facility] [place] [address] Phone [phone] Care Team Providers Care Coupling Machine Operator Name Role Phone VaniaTiny werner Marino BYRD Primary Care Provider [phone] Reason for Visit * Reason Onset Date Comments Follow Up 02/21/2024 Encounter Details Date Type Department Care Team (Late st Contact Info) Description 02/21/2024 Telephone Interventional Pain Center, [facility] [address] [place] [address] Jace Puente DO [address] [place] [phone] Follow Up Allergies No known active allergiesdocumented as of this encounter (statuses as of 02/21/2024) Medications Medication Sig Dispensed Refills Start Date [...] as of this encounter (statuses as of 02/21/2024) Active Problems Problem Noted Date Diagnosed Date Worst headache of life 02/17/2024 Anal fistula 10/22/2022 History of pulmonary embolism 02/04/2022 Overview: Related to control Gastroesophageal reflux disease without esophagi tis 12/03/2020 Fibromyalgia 12/03/2020 ANGELIQUE (generalized anxiety disorder) 12/03/2020 Current mild episode of kusum r depressive disorder without prior episode 01/05/2020 documented as of this encounter (statuses as of 02/21/2024) Resolved Problems Problem Noted Date Diagnosed Date Resolved Date Acute pancreatitis 02/08/2015 1 Pulmonary embolism 05/26/2013 8 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 management encounter 05/26/2013 07/03/2014 half-way current use of ant icoagulant therapy 05/26/2013 08/19/2017 Overview: ICD-10 update of inactive term 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 documented in this encounter Plan of Treatment Upcoming Encounters Date Type Department Care Team (Late st Contact Info) Description 02/22/2024 4:40 PM EDT Office Visit Family Practice [facility] [address] [place] [address] David Sommer MD [address] [place] [address] 03/20/2024 1:00 PM EDT Office Visit Podiatry [facility] [address] [place] [address] Pattie Barrera, DONALD [address] [facility] [place] [address] 04/27/2024 3:00 PM EDT Office Visit Interventional Pain Center, [facility] [address] [place] [address] Jace Puente DO [address] [place] [phone] 06/21/2024 2:40 PM EDT Office Visit Family Practice [facility] [address] [place] [address] Tiny Brownlee, [address] [place] [address] 02/16/2025 1:00 PM EDT Imaging Radiology [facility] 1st [facility] [address] [place] [address] Scheduled Procedures Name Priority Associated Diagnoses Date/Ti me COLONOSCOPY FLEXIBLE PROXIMAL DIAGNOSTIC Recall Screen for colon cancer Health Maintenance Due Date Last Done Comments Hepatitis C Screening 1996 Hepatitis B (1 of 3 - 19+ 3-dose series) 1997 Depression, Most Recent Score >= 10 (will fire each visit until score < 10) 08/06/2022 08/05/2022 COVID-19 Vaccine (3 - 2022- season) 2023 03/27/2021, 02/12/2021 Cologuard 2023 Fecal [...] this encounter Medical Devices Implanted Type Area Space Physicist Device Identifier Shelf Expiration Date Model / Serial / Lot Lead-11/05/2023 Implanted:11/05 by Yaniv Beckham DO (Quantity not on file) Lead [employer] 06/22/2025 SC-8336-50 / [id number] / NA Description:[employer] Lead Kit 50CM #[id number] Beckham at [facility] on 11/05/23 Fibertak Dx Suture [place] With 1.33 Mm Suturetape Implanted:Qty: 2 on 09/05/2021 by Mario Desir DO at OR [facility] Left: Elbow 05/14/2026 [id number]-8990ST / / [id number] Description:with 1.3 mm Fibe rWire SutureTape and [place] Lead Kit Trial [id number] 50cm - [id number] - [id number] Implanted:Qty: 1 on 09/09/2023 by Jace Puente DO at OR [facility] Right: Back [employer] : PAIN MGMT 05/29/2025 [id number] 50E0 / [id number] / Lead Kit Trial [id number] 50cm - [id number] - [id number] Implanted:Qty: 1 on 09/09/2023 by Jace Puente DO at OR [facility] Left: Back [employer] : PAIN MGMT 06/13/2025 [id number] 50E0 / [id number] / Neurostimulator -11/05/2023 Implanted:11/05 by Yaniv Beckham DO (Quantity not on file) [employer] 04/03/2025 SC-1232 / [id number] / [id number] Description:[place] [employer] Wavewriter Alpha SC-1232 [facility] [...] the patient have Health Care Power of Infantry Indirect Fire Crewmember? No Care Teams Coupling Machine Operator Relationship Specialty Start Date End Date Tiny Brownlee DO [address] [place] [address] PCP - General Family Medicine 12/30/21 documented as of this encounter
--- OUTSIDE RECORDS SUMMARY | 2024-05-07 01:04 | External Medical Summary | Summary of Care ---
Author Name Unknown Organization [facility] Address [address] [facility] [place] [address] Phone [phone] Care Team Providers Care Aoc Plans Intelligence Officer Chief Name Role Phone Torrie Tiny Marino BYRD Primary Care Provider [phone] Reason for Visit * Reason Onset Date Comments Follow Up 02/21/2024 Encounter Details Date Type Department Care Team (Late st Contact Info) Description 02/21/2024 Telephone Interventional Pain Center, [facility] [address] [place] [address] Jace Puente DO [address] [place] [phone] Follow Up Allergies No known active allergiesdocumented as of this encounter (statuses as of 02/22/2024) Medications Medication Sig Dispensed Refills Start Date End Date Status docusate sodium (COLACE) 100 MG Capsule Take 1 Capsule by mouth 2 times a day as needed for Constipation. 10 Cap 0 05/24/2018 Active Loratadine 10 MG Oral Tablet (CLARITIN) Take 1 Tablet by mouth in the morning. 0 Active diltiazem 2% 2% MN GEL Administer 1 Application Dosing Unit into [...] as of this encounter (statuses as of 02/22/2024) Active Problems Problem Noted Date Diagnosed Date Worst headache of life 02/17/2024 Anal fistula 10/22/2022 History of pulmonary embolism 02/04/2022 Overview: Related to control Gastroesophageal reflux disease without esophagi tis 12/03/2020 Fibromyalgia 12/03/2020 ANGELIQUE (generalized anxiety disorder) 12/03/2020 Current mild episode of kusum r depressive disorder without prior episode 01/05/2020 documented as of this encounter (statuses as of 02/22/2024) Resolved Problems Problem Noted Date Diagnosed Date [...] as of this encounter (statuses as of 02/22/2024) Immunizations Name Administration Dates Next Due COVID-19 mRNA, LNP-s, No Pre serve, 2-Dose Series (AccelOps) 03/27/2021,02/12/2021 Seasonal Influenza Virus Vac cine, Unspecified [...] encounter Miscellaneous Notes * Telephone Encounter - David Sommer MD - 02/22/2024 5:05 PM EDT Patient was a no show for her appt. * Telephone Encounter - Tiny Brownlee DO - 02/21/2024 4:28 PM EDT Agree, pt sees Dr. Sommer tomorrow fyi * Telephone Encounter - Vivian Lane OSA - 02/21/2024 3:52 PM EDT Patient stopped by requesting a refill of her tramadol. documented in this encounter Plan of Treatment Upcoming Encounters Date Type Department Care Team (Late st Contact Info) Description 03/20/2024 1:00 PM EDT Office Visit Podiatry [facility] [address] [facility] [place] [address] Pattie Barrera DPM [address] [facility] [place] [phone] 04/27/2024 3:00 PM EDT Office Visit Interventional Pain Center, [facility] [address] [place] [address] Jace Puente, DO [address] [place] [address] 06/21/2024 2:40 PM EDT Office Visit Family Practice [facility] [address] [place] [address] Tiny Brownlee, DO [address] [place] [address] 02/16/2025 1:00 PM EDT Imaging Radiology [facility] 1st Floor, [place] [address] [place] [address] Scheduled Procedures Name Priority Associated Diagnoses Date/Ti me COLONOSCOPY FLEXIBLE PROXIMAL DIAGNOSTIC Recall Screen for colon cancer Health Maintenance Due Date Last Done Comments Hepatitis C Screening 1996 Hepatitis B (1 of 3 - 19+ 3-dose series) 1997 Depression, Most Recent Score >= 10 (will fire each visit until score < 10) 08/06/2022 08/05/2022 COVID-19 Vaccine ( - 2022- season) 2023 03/27/2021, 02/12/2021 Cologuard [...] this encounter Medical Devices Implanted Type Area Sped Teacher Device Identifier Shelf Expiration Date Model / Serial / Lot Lead-11/05/2023 Implanted:11/05 by Yaniv Beckham DO (Quantity not on file) Lead [employer] JACQUE 06/22/2025 SC-8336-50 / [id number] / [id number] Description:Elba Radiate Mediaentifi c Lead Kit 50CM #[id number] Beckham at [facility] on 11/05/23 Fibertak Dx Suture [place] With 1.33 Mm Suturetape Implanted:Qty: 2 on 09/05/2021 by Mario Desir DO at OR [facility] Left: Elbow 05/14/2026 AR-8990ST / / [id number] Description:with 1.3 mm Fibe rWire SutureTape and [place] Lead Kit Trial [id number] 50cm - [id number] - [id number] Implanted:Qty: 1 on 09/09/2023 by Jace Puente DO at OR [facility] Right: Back [employer] : PAIN MGMT 05/29/2025 [id number] 50E0 / [id number] / Lead Kit Trial [id number] 50cm - [id number] - [id number] Implanted:Qty: 1 on 09/09/2023 by Jace Puente DO at OR [facility] Left: Back [employer] : PAIN MGMT 06/13/2025 [id number] 50E0 / [id number] / Neurostimulator -11/05/2023 Implanted:11/05 by Yaniv Beckham DO (Quantity not on file) Takumii [place] 04/03/2025 WV-1232 / [id number] / [id number] Description:Eduardo Rodartewriter Shane SC-1232 Implanted at [facility] by Dr Beckham 11/05/23 documented as of [...] the patient have Health Care Power of Mine Car Repairer? No Care Teams Aoc Plans Intelligence Officer Chief Relationship Specialty Start Date End Date Tiny Brownlee DO [address] [place] [address] PCP - General Family Medicine 12/30/21 documented as of this encounter
--- OUTSIDE RECORDS SUMMARY | 2024-05-07 01:04 | External Medical Summary | Summary of Care ---
Author Name Unknown Organization [facility] Address [address] [place] [address] Phone [phone] Care Team Providers Care Claim Taker Name Role Phone Tiny Brownlee DO Primary Care Provider [phone] Reason for Visit * Reason Onset Date Comments Appointment 03/06/2024 Encounter Details Date Type Department Care Team (Late st Contact Info) Description 03/06/2024 Telephone [facility]iology [facility] [address] [facility], Scheduling [address] [place] [address] Appointment Allergies No known active allergiesdocumented as [...] mRNA, LNP-s, No Pre serve, 2-Dose Series (Snapwire) 03/27/2021,02/12/2021 Seasonal Influenza Virus Vac cine, Unspecified [...] 3:40 PM EDT Office Visit Family Practice [facility] [address] [place] [address] Tiny Brownlee DO [address] [place] [address] 03/20/2024 1:00 PM EDT Office Visit Podiatry [facility] [address] [place] [address] Pattie Barrera, DPM [address] [facility] [place] [address] 04/26/2024 10:00 AM EDT Office Visit Audiology [facility] [address] [place] [address] Nga Helms Au.D. [address] [place] [address] 04/27/2024 3:00 PM EDT Office Visit Interventional Pain Center, [facility] [address] [place] [address] Jace Puente, DO [address] [place] [phone] 06/21/2024 2:40 PM EDT Office Visit Family Practice [facility] [address] [place] [address] Tiny Brownlee, DO [address] [place] [address] 02/16/2025 1:00 PM EDT Imaging Radiology [facility] 1st Floor, [place] [address] [place] [address] Scheduled Procedures Name Priority Associated Diagnoses Date/Ti [...] this encounter Medical Devices Implanted Type Area Butcher Apprentice Device Identifier Shelf Expiration Date Model / Serial / Lot Lead-11/05/2023 Implanted:11/05 by Yaniv Beckham DO (Quantity not on file) Lead [employer] JACQUE 06/22/2025 SC-8336-50 / [id number] / NA Description:LootWorks c Lead Kit 50CM #[id number] Beckham at [facility] on 11/05/23 Fibertak Dx Suture [place] With 1.33 Mm Suturetape Implanted:Qty: 2 on 09/05/2021 by Mario Desir DO at OR [facility] Left: Elbow 05/14/2026 AR-8990ST / / [id number] Description:with 1.3 mm Fibe rWire SutureTape and [place] Lead Kit Trial [id number] 50cm - [id number] - [id number] Implanted:Qty: 1 on 09/09/2023 by Jace Puente DO at OR [facility] Right: Back [employer] : PAIN MGMT 05/29/2025 [id number] 50E0 / [id number] / Lead Kit Trial [id number] 50cm - [id number] - [id number] Implanted:Qty: 1 on 09/09/2023 by Jace Puente DO at OR [facility] Left: Back [employer] : PAIN MGMT 06/13/2025 [id number] 50E0 / [id number] / Neurostimulator -11/05/2023 Implanted:11/05 by Yaniv Beckham DO (Quantity not on file) SocialRadar JACQUE 04/03/2025 SC-1232 / [id number] / [id number] Description:Triptrotting Scientifi c Wavewriter Alpha SC-1232 Implanted at [facility] by Dr Beckham 11/05/23 documented as [...] the patient have Health Care Power of Gameplay Engineer? No Care Teams Claim Taker Relationship Specialty Start Date End Date Tiny Brownlee DO [address] [address] PCP - General Family Medicine 12/30/21 documented as of this encounter
--- OUTSIDE RECORDS SUMMARY | 2024-05-07 01:04 | External Medical Summary | Summary of Care ---
Author Name Unknown Organization [facility] Address [address] [facility] [place] [address] Phone [phone] Care Team Providers Care Loader Demolder Name Role Phone VaniaTiny werner Marino BYRD Primary Care Provider [phone] Reason for Visit * Reason Onset Date Comments Follow Up 02/21/2024 Encounter Details Date Type Department Care Team (Late st Contact Info) Description 02/21/2024 Telephone Interventional Pain Center, [facility] [address] [place] [address] Jace Puente DO [address] [place] [phone] Follow Up Allergies No known active allergiesdocumented [...] the morning. 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 Normal , first 10/25/200311/15 Lumbago 12/03/2020 Major depressive disorder Overview: ICD-10 update of inactive term documented as of this encounter (statuses as of 02/21/2024) Immunizations Name Administration Dates Next Due COVID-19 mRNA, LNP-s, No Pre serve, 2-Dose Series (Velocix) 03/27/2021,02/12/2021 Seasonal Influenza Virus Vac cine, Unspecified [...] encounter Miscellaneous Notes * Telephone Encounter - Tiny Brownlee DO [...] 4:40 PM EDT Office Visit Family Practice [facility] [address] [place] [address] David Sommer MD [address] [place] [address] 03/20/2024 1:00 PM EDT Office Visit Podiatry [facility] [address] [place] [address] Pattie Barrera, DONALD [address] [place] [address] 04/27/2024 3:00 PM EDT Office Visit Interventional Pain Center, [facility] [address] [place] [address] Jace Puente, DO [address] [place] [phone] 06/21/2024 2:40 PM EDT Office Visit Family Practice [facility] [address] [place] [address] Tiny Brownlee, DO [address] [place] [address] 02/16/2025 1:00 PM EDT Imaging Radiology [facility] 1st [facility], [place] [address] [place] [address] Scheduled Procedures Name Priority Associated Diagnoses Date/Ti [...] this encounter Medical Devices Implanted Type Area Independent Agent Music Education Device Identifier Shelf Expiration Date Model / Serial / Lot Lead-11/05/2023 Implanted:11/05 by Yaniv Beckham DO (Quantity not on file) Lead Wish JACQUE 06/22/2025 SC-8336-50 / [id number] / NA Description:mGeneratorentifi c Lead Kit 50CM #[id number] Beckham at [facility] on 11/05/23 Fibertak Dx Suture [place] With 1.33 Mm Suturetape Implanted:Qty: 2 on 09/05/2021 by Mario Desir DO at OR [facility] Left: Elbow 05/14/2026 AR-8990ST / / [id number] Description:with 1.3 mm Fibe rWire SutureTape and [place] Lead Kit Trial Caxwnurx95 50cm - [id number] - [id number] Implanted:Qty: 1 on 09/09/2023 by Jace Puente DO at OR [facility] Right: Back [employer] : PAIN MGMT 05/29/2025 [id number] 50E0 / [id number] / Lead Kit Trial [id number] 50cm - [id number] - [id number] Implanted:Qty: 1 on 09/09/2023 by Jcae Puente DO at OR [facility] Left: Back [employer] : PAIN MGMT 06/13/2025 [id number] 50E0 / [id number] / Neurostimulator -11/05/2023 Implanted:11/05 by Yaniv Beckham DO (Quantity not on file) CareKinesis 04/03/2025 KY-1232 / [id number] / [id number] Description:Eduardo alexandra Wavewriter Alpha SC-1232 Implanted at [facility] by Dr Beckham 11/05/23 documented [...] the patient have Health Care Power of Cyber Policy And Strategy Planner? No Care Teams Loader Demolder Relationship Specialty Start Date End Date Tiny Brownlee DO [address] [address] PCP - General Family Medicine 12/30/21 documented as of this encounter
--- OUTSIDE RECORDS SUMMARY | 2024-05-07 01:04 | External Medical Summary | Summary of Care ---
Author Name Unknown Organization [facility] Address [address] [facility] [place] [address] Phone [phone] Care Team Providers Care Advertising Copywriter Name Role Phone VaniaTiny werner Marino BYRD Primary Care Provider [phone] Reason for Visit * Reason Onset Date Comments Referral 03/16/2024 [facility] Pain Encounter Details Date Type Department Care Team (Late st Contact Info) Description 03/16/2024 Telephone Pharmacy Call Center [address] [place] [address] [facility] [address] [place] [address] Referral ([facility] Pain) Allergies No known active allergiesdocumented as of this encounter (statuses as of 03/16/2024) Medications Medication Sig Dispensed Refills Start Date [...] as of this encounter (statuses as of 03/16/2024) Active Problems Problem Noted Date Diagnosed Date Worst headache of life 02/17/2024 Anal fistula 10/22/2022 History of pulmonary embolism 02/04/2022 Overview: Related to control Gastroesophageal reflux disease without esophagi tis 12/03/2020 Fibromyalgia 12/03/2020 ANGELIQUE (generalized anxiety disorder) 12/03/2020 Current mild episode of kusum r depressive disorder without prior episode 01/05/2020 documented as of this encounter (statuses as of 03/16/2024) Resolved Problems Problem Noted Date Diagnosed Date Resolved Date Acute pancreatitis 02/08/2015 Pulmonary embolism 05/26/2013 8 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 management encounter 05/26/2013 07/03/2014 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 icoagulant therapy 05/26/2013 08/19/2017 Overview: ICD-10 update of inactive term 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 Please schedule. Initial appt length: [address] [facility] clinic for Pain Management Regimen optimization on behalf of Dr. Brownlee. Referral reviewed and relevant pre-visit information listed below: Pain Follow-up as scheduled. Stephanie Baugh RPh 03/16/2024, 10:26 AM * Telephone Encounter - Vilma Cheung service restorer emergency - 03/16/2024 10:23 AM EDT Procedure: PHARMACIST MEDS THERAPY MGMT REFERRAL OP Status: Needs Scheduling (Nykn-lp-Bhyspji Pending) Requested appt date: Authorizing: Tiny Brownlee, in [facility] Referral: [id number] (Pending Review) Priority: Within 10 days (routine) Diagnosis: Fibromyalgia [M79.7] Right lumbar radiculopathy [M54.16] Comments Pharmacist Medication Therapy Management: Minimum frequency patient should be seen in person for medication management: as appropriate per clinical condition and patient status By my signature, I understand that my patient Telma Vann will have her medication therapy managed by the [facility] Medication Therapy Disease Management Clinic ([facility]) per established policies, procedures, and protocols. I also certify that this referral may serve as an initiation of service for the management of drug therapy in the above noted patient. [facility] providers will be responsible for scheduling patient visits, obtaining appropriate laboratory studies, and adjusting medication management therapy per patient's need, in addition to those roles spelled out in the clinic policy, procedures, and drug management protocols. I understand that the service provided by the [facility] Clinic is voluntary and have informed patient that they can refuse the service at their discretion. I am aware that the [facility] Clinic will provide me with a copy of the patient encounter via my [facility] In[employer]r. I authorize the [facility] to carry out these activities on my behalf. I consider this program to be a necessary part of the patient's medical care. Tiny Brownlee, DO Order Specific Questions Referral Priority Within 10 days (routine) Where should this appointment be scheduled? [facility] Referring Provider Role: Primary Care Reason for Referral: Pain Pain Diagnosis: Back pain Fibromyalgia Pain Treatment Options: Non-opioids only Pain Treatment Goal: Med Optimization documented in this encounter Plan of Treatment Upcoming Encounters Date Type Department Care Team (Late st Contact Info) Description 03/20/2024 1:00 PM EDT Office Visit Podiatry [facility] [address] [place] [address] Pattie Barrera DPM [address] [place] [address] [place] [address] 04/26/2024 10:00 AM EDT Office Visit Audiology [facility] [address] [place] [address] Nga Helms [facility] [address] [place] [address] 04/27/2024 3:00 PM EDT Office Visit Interventional Pain Center, [facility] [address] [address] Jace Puente, DO [address] [place] [phone] 06/21/2024 2:40 PM EDT Office Visit Family Practice [facility] [address] [place] [address] Tiny Brownlee, [address] [place] [address] 02/16/2025 1:00 PM EDT Imaging Radiology [facility] 1st [facility], [address] [place] [address] Scheduled Procedures Name Priority Associated Diagnoses Date/Ti me COLONOSCOPY FLEXIBLE PROXIMAL DIAGNOSTIC Recall Screen for colon cancer Health Maintenance Due Date Last Done Comments Hepatitis C Screening 1996 Hepatitis B (1 of 3 - 19+ 3-dose series) 1997 Depression, Most Recent Score >= 10 (will fire each visit until score < 10) 08/06/2022 08/05/2022 COVID-19 Vaccine (2022-24 season) 2023 03/27/2021, 02/12/2021 Cologuard 2023 Fecal [...] this encounter Medical Devices Implanted Type Area Weed Science Research Technician Device Identifier Shelf Expiration Date Model / Serial / Lot Lead-11/05/2023 Implanted:11/05 by Yaniv Beckham DO (Quantity not on file) Lead [employer] JACQUE 06/22/2025 SC-8336-50 / [id number] / NA Description:Pollock Scientifi c Lead Kit 50CM #[id number] Beckham at [facility] on 11/05/23 Fibertak Dx Suture [place] With 1.33 Mm Suturetape Implanted:Qty: 2 on 09/05/2021 by Mario Desir DO at OR [facility] Left: Elbow 05/14/2026 AR-8990ST / / [id number] Description:with 1.3 mm Fibe rWire SutureTape and [place] Lead Kit Trial [id number] 50cm - [id number] - [id number] Implanted:Qty: 1 on 09/09/2023 by Jace Puente DO at OR [facility] Right: Back [employer] : PAIN MGMT 05/29/2025 [id number] 50E0 / [id number] / Lead Kit Trial [id number] 50cm - [id number] - [id number] Implanted:Qty: 1 on 09/09/2023 by Jace Puente DO at OR [facility] Left: Back [employer] : PAIN MGMT 06/13/2025 [id number] 50E0 / [id number] / Neurostimulator -11/05/2023 Implanted:11/05 by Yaniv Beckham DO (Quantity not on file) [employer] JACQUE 04/03/2025 SC-1232 / [id number] / [id number] Description:Pollock Scientifi c Wavewriter Alpha SC-1232 Implanted at [facility] by Dr Beckham 11/05/23 documented as [...] the patient have Health Care Power of Calciner Operator? No Care Teams Advertising Copywriter Relationship Specialty Start Date End Date Tiny Brownlee DO [address] [place] [address] PCP - General Family Medicine 12/30/21 documented as of this encounter
--- OUTSIDE RECORDS SUMMARY | 2024-05-07 01:05 | External Medical Summary | Summary of Care ---
Author Name Unknown Organization [facility] Address [address] [facility] [place] [address] Phone [phone] Care Team Providers Care Clerical Adjuster Name Role Phone VaniaTiny werner Marino BYRD Primary Care Provider [phone] Reason for Visit * Reason Onset Date Comments Follow Up 02/21/2024 Encounter Details Date Type Department Care Team (Late st Contact Info) Description 02/21/2024 Telephone Interventional Pain Center, 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 [address] [place] [address] David Sommer MD [address] [place] [address] 03/20/2024 1:00 PM EDT Office Visit Podiatry [facility] [address] [place] [address] [address] Pattie Barrera, [facility]ALD [address] [facility] [address] 04/27/2024 3:00 PM EDT Office Visit Interventional Pain Center, [facility] [address] [place] [address] [address] Jace Puente DO [address] [place] [phone] 06/21/2024 2:40 PM EDT Office Visit Family Practice [facility] [address] [place] [address] Tiny Brownlee, [address] [place] [address] 02/16/2025 1:00 PM EDT Imaging Radiology [facility] 1st [facility] [place] [address] [place] [address] Scheduled Procedures Name Priority Associated Diagnoses Date/Ti [...] this encounter Medical Devices Implanted Type Area Advertising Writer Device Identifier Shelf Expiration Date Model / Serial / Lot Lead-11/05/2023 Implanted:11/05 by Yaniv Beckham DO (Quantity not on file) Lead [employer] 06/22/2025 SC-8336-50 / [id number] / [id number] Description:[place] [employer] Lead Kit 50CM #[id number] Beckham at [facility] on 11/05/23 Fibertak Dx Suture [place] With 1.33 Mm Suturetape Implanted:Qty: 2 on 09/05/2021 by Mario Desir DO at OR [facility] Left: Elbow 05/14/2026 [id number]-8990ST / / [id number] Description:with 1.3 mm Fibe rWire SutureTape and [place] Lead Kit Trial [id number] 50cm - [id number] - [id number] Implanted:Qty: 1 on 09/09/2023 by Jace Puente DO at OR [facility] Right: Back [employer] : PAIN MGMT 05/29/2025 [id number] 50E0 / [id number] / Lead Kit Trial [id number] 50cm - [id number] - [id number] Implanted:Qty: 1 on 09/09/2023 by Jace Puente DO at OR [facility] Left: Back [employer] : PAIN MGMT 06/13/2025 [id number] 50E0 / [id number] / Neurostimulator -11/05/2023 Implanted:11/05 by Yaniv Beckham DO (Quantity not on file) [employer] 04/03/2025 SC-1232 / [id number] / [id number] Description:[place] [employer], [employer]entifi [employer] Wavewriter Alpha SC-1232 Implanted at [facility] by Dr Beckham 11/05/23 documented [...] the patient have Health Care Power of Machine Binding Folder? No Care Teams Clerical Adjuster Relationship Specialty Start Date End Date Tiny Brownlee DO [address] [place] [address] PCP - General Family Medicine 12/30/21 documented as of this encounter
--- OUTSIDE RECORDS SUMMARY | 2024-05-07 01:05 | External Medical Summary | Summary of Care ---
Author Name Unknown Organization [facility] Address [address] [facility] [place] [address] Phone [phone] Care Team Providers Care Military Administrative Technician Name Role Phone Tiny Brownlee DO Primary Care Provider [phone] Reason for Visit * Reason Onset Date Comments Hospital Follow-Up 11/19/2023 Encounter Details Date Type Department Care Team (Late st Contact Info) Description 11/19/2023 Telephone General Internal Medicine [facility] [address] [place] [address] Tiny Brownlee DO [address] [facility] [place] [address] Hospital Follow-Up Allergies No known active allergiesdocumented as of this encounter (statuses as of 02/18/2024) Medications Medication Sig Dispensed Refills Start Date End Date Status docusate sodium (COLACE) 100 MG Capsule Take 1 Capsule by mouth 2 times a day as needed for Constipation. 10 Cap 0 05/24/2018 Active Loratadine 10 MG Oral Tablet (CLARITIN) Take 1 Tablet by mouth in the morning. 0 Active diltiazem 2% 2% [place] GEL Administer 1 Application Dosing Unit into [...] as of this encounter (statuses as of 02/18/2024) Active Problems Problem Noted Date Diagnosed Date Worst headache of life 02/17/2024 Anal fistula 10/22/2022 History of pulmonary embolism 02/04/2022 Overview: Related to control Gastroesophageal reflux disease without esophagi tis 12/03/2020 Fibromyalgia 12/03/2020 ANGELIQUE (generalized anxiety disorder) 12/03/2020 Current mild episode of kusum r depressive disorder without prior episode 01/05/2020 documented as of this encounter (statuses as of 02/18/2024) Resolved Problems Problem Noted Date Diagnosed Date Resolved Date Acute pancreatitis 02/08/2015 Pulmonary embolism 05/26/2013 8 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 management encounter 05/26/2013 07/03/2014 oysterman current use of ant icoagulant therapy 05/26/2013 08/19/2017 Overview: ICD-10 update of inactive term 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 Was notified that the new script for toradol required a prior authorization. PA completed, was denied. Call placed to patient, voicemail left. No return call as of now. documented in this encounter Plan of Treatment Upcoming Encounters Date Type Department Care Team (Late st Contact Info) Description 03/20/2024 1:00 PM EDT [facility] [place] [address] Pattie Barrera, DPM [address] [place] [address] 06/21/2024 2:40 PM EDT Office Visit Family Practice [facility] [address] [facility] [place] [address] Tiny Brownlee DO [address] [place] [address] 02/16/2025 1:00 PM EDT Imaging Radiology [facility] 1st [facility] [address] [facility] [place] [address] Scheduled Procedures Name Priority Associated Diagnoses Date/Ti [...] this encounter Medical Devices Implanted Type Area Shear Grinder Operator Helper Device Identifier Shelf Expiration Date Model / Serial / Lot Lead-11/05/2023 Implanted:11/05 by Yaniv Beckham DO (Quantity not on file) Lead [employer] 06/22/2025 SC-8336-50 / [id number] / NA Description:[employer] Lead Kit 50CM #[id number] Beckham at [facility] on 11/05/23 Fibertak Dx Suture [place] With 1.33 Mm Suturetape Implanted:Qty: 2 on 09/05/2021 by Mario Desir DO at OR [facility] Left: Elbow 05/14/2026 AR-8990ST / / [id number] Description:with 1.3 mm Fibe rWire SutureTape and [place] Lead Kit Trial [id number] 50cm - [id number] - [id number] Implanted:Qty: 1 on 09/09/2023 by Jace Puente DO at OR [facility] Right: Back [employer] : PAIN MGMT 05/29/2025 [id number] 50E0 / [id number] / Lead Kit Trial [id number] 50cm - [id number] - [id number] Implanted:Qty: 1 on 09/09/2023 by Jace Puente, at OR [facility] Left: Back [employer] : PAIN MGMT 06/13/2025 [id number] 50E0 / [id number] / Neurostimulator -11/05/2023 Implanted:11/05 by Yaniv Beckham DO (Quantity not on file) Cognitive Code JACQUE 04/03/2025 SC-1232 / [id number] / [id number] Description:[employer] Wavewriter Alpha SC-1232 Implanted at [facility] by Dr Beckham 11/05/23 documented [...] the patient have Health Care Power of Supervisor Dyer? No Care Teams Military Administrative Technician Relationship Specialty Start Date End Date Tiny Brownlee DO [address] [facility] [place] [address] PCP - General Family Medicine 12/30/21 documented as of this encounter
--- OUTSIDE RECORDS SUMMARY | 2024-05-07 01:05 | External Medical Summary | Summary of Care ---
Author Name Unknown Organization [facility] Address [address] [facility] [place] [address] Phone [phone] Care Team Providers Care Radiological Technologist Name Role Phone VaniaTiny werner Marino BYRD Primary Care Provider [phone] Reason for Visit * Reason Onset Date Comments Follow Up 02/21/2024 Encounter Details Date Type Department Care Team (Late st Contact Info) Description 02/21/2024 Telephone Interventional Pain Center, [facility] [address] [place] [address] Jace Puente DO [address] [place] [phone] Follow Up Allergies No known active allergiesdocumented [...] the morning. 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 Normal , first 10/25/200311/15 Lumbago 12/03/2020 Major depressive disorder Overview: ICD-10 update of inactive term documented as of this encounter (statuses as of 02/21/2024) Immunizations Name Administration Dates Next Due COVID-19 mRNA, LNP-s, No Pre serve, 2-Dose Series (Dacentec) 03/27/2021,02/12/2021 Seasonal Influenza Virus Vac cine, Unspecified [...] 4:40 PM EDT Office Visit Family Practice [facility] [address] [address] David Sommer MD [address] [place] [address] [address] 03/20/2024 1:00 PM EDT Office Visit Podiatry [facility] [address] [place] [address] [address] Pattie Barrera, DONALD [address] [facility] [address] 04/27/2024 3:00 PM EDT Office Visit Interventional Pain Center, [facility] [address] [address] Jace Puente DO [address] [phone] 06/21/2024 2:40 PM EDT Office Visit Family Practice [facility] [address] [place] [address] Tiny Brownlee, [address] [place] [address] 02/16/2025 1:00 PM EDT Imaging Radiology [facility] 1st [facility] [address] [place] [address] Scheduled Procedures Name Priority Associated Diagnoses Date/Ti [...] this encounter Medical Devices Implanted Type Area Grain Elevator Motor Starter Device Identifier Shelf Expiration Date Model / Serial / Lot Lead-11/05/2023 Implanted:11/05 by Yaniv Beckham DO (Quantity not on file) Lead [employer] 06/22/2025 SC-8336-50 / [id number] / NA Description:[employer] Senior Well[employer] Solutionsentifi c Lead Kit 50CM #[id number] Beckham at [facility] on 11/05/23 Fibertak Dx Suture [place] With 1.33 Mm Suturetape Implanted:Qty: 2 on 09/05/2021 by Mario Desir DO at OR [facility] Left: Elbow 05/14/2026 AR-8990ST / / [id number] Description:with 1.3 mm Fibe rWire SutureTape and [place] Lead Kit Trial [id number] 50cm - [id number] - [id number] Implanted:Qty: 1 on 09/09/2023 by Jace Puente DO at OR [facility] Right: Back [employer] : PAIN MGMT 05/29/2025 [id number] 50E0 / [id number] / Lead Kit Trial [id number] 50cm - [id number] - [id number] Implanted:Qty: 1 on 09/09/2023 by Jace Puente DO at OR [facility] Left: Back [employer] : PAIN MGMT 06/13/2025 [id number] 50E0 / [id number] / Neurostimulator -11/05/2023 Implanted:11/05 by Yaniv Beckham DO (Quantity not on file) [employer] 04/03/2025 SC-1232 / [id number] / [id number] Description:[employer] Senior Wellness Solutionsentifi c Wavewriter Alpha SC-1232 Implanted at [facility] by Dr Beckham 11/05/23 documented [...] the patient have Health Care Power of Marketing Research Intern? No Care Teams Radiological Technologist Relationship Specialty Start Date End Date Tiny Brownlee DO [address] [place] [address] PCP - General Family Medicine 12/30/21 documented as of this encounter
--- OUTSIDE RECORDS SUMMARY | 2024-05-07 01:05 | External Medical Summary | Summary of Care ---
Author Name Unknown Organization [facility] Address [address] [facility] [place] [address] Phone [phone] Care Team Providers Care Ball Mill Mixer Name Role Phone Tiny Brownlee DO Primary Care Provider [phone] Encounter Details Date Type Department Care Team (Late st Contact Info) Description 02/17/2024 Orders Only Family Practice [facility] [address] [place] [address] Tiny Brownlee DO [address] [place] [address] Encounter for screening mammogram for breast cancer* Allergies No known active allergiesdocumented as of this encounter (statuses as of 02/17/2024) Medications Medication Sig Dispensed Refills Start Date End Date Status docusate sodium (COLACE) 100 MG Capsule Take 1 Capsule by mouth 2 times a day as needed for Constipation. 10 Cap 0 05/24/2018 Active Loratadine 10 MG Oral Tablet (CLARITIN) Take 1 Tablet by mouth in the morning. 0 Active diltiazem 2% 2% [place] GEL Administer [...] until gone 6 Tablet 0 02/14/2024 Active predniSONE 20 MG Oral Tablet (Deltasone)Indicat ions:Acute sinusitis, recurrence not specified, unspecified location Take 1 Tablet by mouth in the morning for 5 days. 5 Tablet 0 02/14/2024 02/19/2024 Active documented as of this encounter (statuses as of 02/17/2024) Active Problems Problem Noted Date Diagnosed Date Anal fistula 10/22/2022 History of pulmonary embolism 02/04/2022 Overview: Related to control Gastroesophageal reflux disease without esophagi tis 12/03/2020 Fibromyalgia 12/03/2020 ANGELIQUE (generalized anxiety disorder) 12/03/2020 Current mild episode of kusum r depressive disorder without prior episode 01/05/2020 documented as of this encounter (statuses as of 02/17/2024) Resolved Problems Problem Noted Date Diagnosed Date Resolved Date Acute pancreatitis 02/08/2015 1 Pulmonary embolism 05/26/2013 8 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 management encounter 05/26/2013 07/03/2014 long-term current use of ant icoagulant therapy 05/26/2013 08/19/2017 Overview: ICD-10 update of inactive term 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 Contact: Telephone Call Contact Type: Orders Outcome: Normal Mammo result letter sent by radiology. Order placed for next year Face to face time spent with Patient (minutes): 0 Total Time including non face to face (minutes): 10 documented in this encounter Plan of Treatment Upcoming Encounters Date Type Department Care Team (Late st Contact Info) Description 03/20/2024 1:00 PM EDT Office Visit Podiatry [facility] [address] [facility] [place] [address] Pattie Barrera DPM [address] [place] [address] [place] [address] 06/21/2024 2:40 PM EDT Office Visit Family Practice [facility] [address] [place] [address] Tiny Brownlee DO [address] [place] [address] 02/16/2025 1:00 PM EDT Imaging Radiology [facility] [address] [place] [address] Scheduled Orders Name Type Priority Associated Diagnoses Orde r Schedule MAMMOGRAM SCREENING MILI BILATERAL Medical Imaging Routine Encounter for screening mammogram for breast cancer Expected: 02/16/2025, Expires: 03/18/2025 Scheduled Procedures Name Priority Associated Diagnoses Date/Ti [...] this encounter Medical Devices Implanted Type Area Test Hole Driller Device Identifier Shelf Expiration Date Model / Serial / Lot Lead-11/05/2023 Implanted:11/05 by Yaniv Beckham DO (Quantity not on file) Lead [employer] 06/22/2025 SC-8336-50 / [id number] / NA Description:[place] [employer] Lead Kit 50CM #[id number] Beckham at [facility] on 11/05/23 Fibertak Dx Suture [place] With 1.33 Mm Suturetape Implanted:Qty: 2 on 09/05/2021 by Mario Desir DO at OR [facility] Left: Elbow 05/14/2026 AR-8990ST / / [id number] Description:with 1.3 mm Fibe rWire SutureTape and [place] Lead Kit Trial [id number] 50cm - [id number] - [id number] Implanted:Qty: 1 on 09/09/2023 by Jace Puente DO at OR [facility] Right: Back [employer] : PAIN MGMT 05/29/2025 [id number] 50E0 / [id number] / Lead Kit Trial [id number] 50cm - [id number] - [id number] Implanted:Qty: 1 on 09/09/2023 by Jace Puente DO at OR [facility] Left: Back [employer] : PAIN MGMT 06/13/2025 [id number] 50E0 / [id number] / Neurostimulator -11/05/2023 Implanted:11/05 by Yaniv Beckham DO (Quantity not on file) [employer] 04/03/2025 SC-1232 / [id number] / [id number] Description:[place] [employer] Wavewriter Alpha SC-1232 Implanted at [facility] by Dr Beckham 11/05/23 documented as of this encounter Visit Diagnoses Diagnosis Encounter for screening mammogram for breast cancer- Primary documented in this encounter Advance Directives Latest [...] the patient have Health Care Power of Community Health Nursing Director? No Care Teams Ball Mill Mixer Relationship Specialty Start Date End Date Tiny Brownlee DO [address] [place] [address] PCP - General Family Medicine 12/30/21 documented as of this encounter
--- OUTSIDE RECORDS SUMMARY | 2024-05-07 01:05 | External Medical Summary | Summary of Care ---
Author Name Unknown Organization [facility] Address [address] [address] Phone [phone] Care Team Providers Care Tier Lift Truck Operator Name Role Phone NevilleTiny phillips Primary Care Provider [phone] Reason for Visit * Reason Comments Acute GIVEN ZPACK FOR SINU S, BUT WORSE JOINT PAINS, BACK OF HEAD/NECK PAIN. STILL ON ZPACK., NO HIGH FEVER, BAD HEADACHES. Encounter Details Date Type Department Care Team (Late st Contact Info) Description 02/17/2024 3:10 PM EDT Office Visit [facility] [address] [facility] [facility] [place] [address] Jnae Regalado CRNP [address] [facility] [place] [address] Worst headache of life*; Upper respiratory tract infection, unspecified type Allergies No known active allergiesdocumented as of [...] the morning. 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 Normal , first 10/25/200311/15 Lumbago 12/03/2020 Major depressive disorder Overview: ICD-10 update of inactive term documented as of this encounter (statuses as of 02/17/2024) Immunizations Name Administration Dates Next Due COVID-19 mRNA, LNP-s, No Pre serve, 2-Dose Series (iContainers) 03/27/2021,02/12/2021 Seasonal Influenza Virus Vac cine, Unspecified [...] Sign Reading Time Taken Comments Blood Pressure 130/80 02/17/2024 3:28 PM EDT Pulse 70 02/17/2024 3:28 PM EDT Temperature 36.4 C (97.6 F) 02/17/2024 3:28 PM ED T Respiratory Rate - - Oxygen Saturation 97% 02/17/2024 3:28 PM EDT Inhaled Oxygen Concentration - - Weight - - Height - - Body Mass Index - - documented in this encounter Functional Status Functional [...] as of this encounter Progress Notes * Jane Regalado CRNP - 02/17/2024 3:40 PM EDT URI Family Medicine Visit CC: Chief Complaint Patient presents with Acute GIVEN ZPACK FOR SINUS, BUT WORSE JOINT PAINS, BACK OF HEAD/NECK PAIN. STILL ON ZPACK., NO HIGH FEVER, BAD HEADACHES. History of Present Illness: Telma Vann is a 43 year old female presenting for severe headache. She reports this is worst headache of life. Feels like a stabbing in back of head. Sore to touch. NO rash. Saw telemed yesterday and treated with z pack with no improvement. Treated with steroid with no improvement. NEGATIVE FOR COVID Also joints and wrist hurt. Feels bones hurting for years. Different than baseline headache. 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 [employer] Social Determinants of Health Financial Resource Strain: [...] on file Housing Stability: Not on file PMH: Past Medical History: Diagnosis Date Back pain [...] COMPLEX performed by Caroline Chadwick MD at [facility] ANORECTAL EXAM ,DIAG, REQUIRING ANESTHESIA N/A 10/22/2022 ANORECTAL EXAM UNDER ANESTHESIA performed by Caroline Chadwick MD at [facility] BREAST LESION,OTHER,EXCISION Right 06/27/2019 benign pathology COLONOSCOPY W/ BIOPSY (RECTUM) 12/16/2011 biopsies taken to check for microscopic colitis, hemorroids, normal biopsy, most likely symptoms related to irritable bowel syndrome COLONOSCOPY, DIAGNOSTIC (RECTUM) 01/01/2021 normal, repeat 10 yrs / COLONOSCOPY FLEXIBLE PROXIMAL DIAGNOSTIC performed by Yun Stanley DO at END[facility]COPY [facility] COLONOSCOPY, DIAGNOSTIC (RECTUM) 12/04/2022 normal / COLONOSCOPY FLEXIBLE PROXIMAL DIAGNOSTIC performed by Marlen Desai MD at [facility] DENTAL SURGERY PROCEDURE NEC Dental Surgery Procedure EGD, FLEXIBLE, DIAGNOSTIC 09/20/2013 UPPER GI ENDOSCOPY DIAGNOSTIC performed by Alessandro Cortez MD at [facility] EGD, FLEXIBLE, DIAGNOSTIC 02/07/2015 mild inflammation, pancreatic stent removed/[facility] EGD, FLEXIBLE, DIAGNOSTIC 02/14/2015 ESOPHAGOGASTRODUODENOSCOPY (EGD), FLEXIBLE, TRANSORAL, DIAGNOSTIC performed by Tavares Mooney MD at [facility] EGD, FLEXIBLE, DIAGNOSTIC 01/02/2016 mild gastritis/ESOPHAGOGASTRODUODENOSCOPY (EGD), FLEXIBLE, TRANSORAL, DIAGNOSTIC performed by Yun Stanley DO at [facility] EGD, FLEXIBLE, DIAGNOSTIC 11/19/2016 mild inflammation on bx/ESOPHAGOGASTRODUODENOSCOPY (EGD), FLEXIBLE, TRANSORAL, DIAGNOSTIC performedby Yun Stanley DO at [facility] EGD, FLEXIBLE, DIAGNOSTIC 01/15/2020 mid gastric irritation on bx / [facility] EGD, FLEXIBLE, DIAGNOSTIC 12/04/2022 normal bx / ESOPHAGOGASTRODUODENOSCOPY (EGD), FLEXIBLE, TRANSORAL, DIAGNOSTIC performed by Marlen Desai MD at [facility] EGD, W/ENDOSCOPIC US 12/20/2013 ESOPHAGOGASTRODUODENOSCOPY (EGD), FLEXIBLE, TRANSORAL, ENDOSCOPIC ULTRASOUND performed by Dilip Elizabeth MD at [facility] ELBOW TENOTOMY W/RE-ATTACH W/ RAHDA, OPEN Left 09/05/2021 TENOTOMY ELBOW TENDON REPAIR performed by Mario Desir DO at OR [facility] ERCP, DIAGNOSTIC, SPECIMEN COLLECTION 01/28/2015 Biliary papillary stenosis/[facility] EVAL NEUROSTIM PULSE GEN, W/ REPROGRAM Bilateral 09/09/2023 NEUROSTIMULATOR PULSE GENERATOR/ TRANSMITTER, WITH INTRAOPERATIVE OR SUBSEQUENT PROGRAMMING performed by Jace Puente DO at OR [facility] IMPLANT EPIDURAL NEUROELECTRODES Bilateral 09/09/2023 PERCUTANEOUS IMPLANTATION NEUROSTIMULATOR EPIDURAL performed by Jace Puente DO at OR [facility] INJECT DX/THER SUBSTANCE INTERLAMINAR LUMBAR/SACRAL W IMAGE GUIDE 03/01/2023 INJECTION SPINE LUMBAR OR SACRAL performed by Jace Puente DO at OR [facility] KNEE ARTHROSCOPY, DIAGNOSTIC left knee LAP;W/HYSTERECTOMY LAPAROSCOPY DIAGNOSTIC N/A 01/27/2023 LAPAROSCOPY DIAGNOSTIC performed by Tosin Durán MD at OR [facility] LAPAROSCOPY; CHOLECYSTECTOMY 01/15/2015 01/15/2015 laparoscopic cholecystectomy [facility] karimi 01/08/15 LAPAROSCOPY;RMV ADNEXAL STRUCT Bilateral 01/27/2023 LAPAROSCOPIC OOPHORECTOMY AND OR SALPINGECTOMY performed by Tosin Durán MD at OR [facility] LUMBAR / SACRAL EPIDURAL, SINGLE LEVEL 11/19/2022 INJECTION TRANSFORAMINAL EPIDURAL LUMBAR OR SACRAL performed by Jace Puente DO at OR [facility] MISCELLANEOUS ORDER ([facility] ONLY) 09/28/2016 Spine surgery done at [facility] TOTAL ABD HYSTERECTOMY W/WO REMOVAL OF TUBE(S) 2014 [place], still has ovaries Outpatient Medications Marked as Taking for the 02/17/24 encounter (Office Visit) with Jane Regalado CRNP Medication Sig Azithromycin 250 MG Oral Tablet (Zithromax Z-Basilio) Take two tablets by mouth on first day, then 1 tablet daily until gone predniSONE 20 MG Oral Tablet (Deltasone) Take 1 Tablet by mouth in the morning for 5 days. Celecoxib 100 MG Oral Capsule (CeleBREX) TAKE 1 TO 2 CAPSULES BY MOUTH DAILY NEEDED FOR PAIN USELOWEST DOSE NECESSARY FOR PAIN RELIEF Clotrimazole-Betamethasone 1-0.05 % External Cream Apply to both feet twice daily. buPROPion HCl ER (XL) 300 MG Oral Tablet Extended Release 24 Hour (Wellbutrin XL) Take 1 Tablet by mouth in the morning. In the morning.. DULoxetine HCl 30 MG Oral Capsule Delayed Release Particles (Cymbalta) TAKE 1 CAPSULE BY MOUTH IN THE MORNING ALONG WITH 60 MG CAPSULE FOR TOTAL DAILY DOSE OF 90 MG. DO NOT CUT, CRUSH OR CHEW DULoxetine HCl 60 MG Oral Capsule Delayed Release Particles (Cymbalta) TAKE 1 CAPSULE BY MOUTH ONCEDAILY IN THE MORNING (DO NOT CUT, CRUSH OR CHEW) Ondansetron HCl 4 MG Oral Tablet (Zofran) Take 1 Tablet by mouth every 6 hours as needed for Nausea. SUMAtriptan Succinate 50 MG Oral Tablet (Imitrex) TAKE 2 TABLETS BY MOUTH AT ONSET OF MIGRAINE AND 1 TABLET EVERY 2 HOURS NEEDED. DO NOT EXCEED MORE THAN 5 TABLETS IN 24 HOURS. valACYclovir HCl 1 GM Oral Tablet (Valtrex) TAKE 2 TABLETS BY MOUTH EVERY 12 HOURS FOR COLD SORES. 4 pills total per outbreak. traMADol HCl 50 MG Oral Tablet (Ultram) Take 1 Tablet by mouth 2 times a day as needed for Pain, Moderate or Pain, Severe. Omeprazole 40 MG Oral Capsule Delayed Release (PriLOSEC) Take 1 capsule by mouth twice daily Acetaminophen 325 MG Oral Tablet (Tylenol) Take 2 Tablets by mouth every 6 hours as needed for Pain, Mild. Cyclobenzaprine HCl 10 MG Oral Tablet (Flexeril) TAKE ONE TABLET BY MOUTH TWICE DAILY NEEDED FORMUSCLE SPASMS diltiazem 2% 2% NJ GEL Administer 1 Application Dosing Unit into the rectum 2 times a day as needed(rectal pain). Loratadine 10 MG Oral Tablet (CLARITIN) Take 1 Tablet by mouth in the morning. docusate sodium (COLACE) 100 MG Capsule Take 1 Capsule by mouth 2 times a day as needed for Constipation. Review of patient's allergies indicates: No Known Allergies Most Recent Immunizations Administered Date(s) Administered COVID-19 mRNA, LNP-s, No Preserve, 2-Dose Series (iContainers) 03/27/2021 Seasonal Influenza Virus Vaccine, Unspecified Formulation 08/05/2022 Seasonal Influenza, PF, 6 M & above, IM , (FluLaval or Fluzone) 11/02/2023 Seasonal Influenza, Quadrivalent, No Preserve, IM 09/19/2015 Seasonal Influenza, Split, IIV3, With Preserve, Inj 09/16/2016 Seasonal Influenza, Trivalent, Adjuvanted, 65+ yrs 08/27/2018 TDAP (age 10 and older)(Boostrix) 01/02/2020 TDAP (age 11 and older)(Adacel) 07/24/2011 Physical Exam: BP 130/80 | Pulse 70 | Temp 36.4 C (97.6 F) (Tympanic) | LMP 12/20/2015 (Exact Date) | SpO2 97% Physical Exam HENT: Head: Normocephalic. Right Ear: A middle ear effusion is present. Left Ear: A middle ear effusion is present. Mouth/Throat: Pharynx: No posterior oropharyngeal erythema. Tonsils: No tonsillar exudate. Cardiovascular: Rate and Rhythm: Normal rate and regular rhythm. Pulmonary: Effort: Pulmonary effort is normal. Breath sounds: Normal breath sounds. Musculoskeletal: Cervical back: Normal range of motion. Lymphadenopathy: Cervical: No cervical adenopathy. Neurological: Mental Status: She is alert and oriented to person, place, and time. Motor: Motor function is intact. Coordination: Coordination is intact. Comments: No meningeal symptoms Psychiatric: Attention and Perception: Attention normal. Mood and Affect: Mood normal. Speech: Speech normal. Behavior: Behavior normal. Behavior is cooperative. Thought Content: Thought content normal. Cognition and Memory: Cognition and memory normal. Judgment: Judgment normal. Assessment and Plan: 1. Worst headache of life X 1.5 WEEK Negative for covid at home She has posterior head pain Recommend ED eval- patient is agreeable. Declines EMS transport Report called to "Vivian" AT [facility] SHE HAS MIGRAINES BUT STATES THIS IS DIFFERENT 2. Upper respiratory tract infection, unspecified type Uri SX NOT IMPROVED WITH AZITHROMYCIN Recommend supportive care including: -Humidifier -Rest -Push fluids -Reviewed pathophysiology of viral URI -Quarantine until covid results are back -Recommend handwashing and covering cough -Reviewed signs and symptoms in which to seek medical care I have advised the patient to call our office incase of any worsening or new symptoms. I spent a total of 20-29 minutes (exact time 25 mins) on the date of service in preparation, delivery, and documentation of the care provided to Telma Vann excluding any time spent in the performance of separately billed services. WALT Sparks, FRANDY [facility] documented in this encounter Plan of Treatment Upcoming Encounters Date Type Department Care Team (Late st Contact Info) Description 03/20/2024 1:00 PM EDT Office Visit [facility] [address] [place] [address] Pattie Barrera, DONALD [address] [facility] [place] [address] 06/21/2024 2:40 PM EDT Office Visit Family Practice [facility] [address] [facility] [place] [address] Tiny Brownlee DO [address] [facility] [place] [address] 02/16/2025 1:00 PM EDT Imaging Radiology [facility] 1st Floor, [place] [address] [facility] [place] [address] Scheduled Procedures Name Priority Associated Diagnoses Date/Ti [...] this encounter Medical Devices Implanted Type Area Mural Artist Device Identifier Shelf Expiration Date Model / Serial / Lot Lead-11/05/2023 Implanted:11/05 by Yaniv Beckham DO (Quantity not on file) Lead [employer] JACQUE 06/22/2025 SC-8336-50 / [id number] / NA Description:[place] Scient[employer] Lead Kit 50CM #[id number] Beckham at [facility] on 11/05/23 Fibertak Dx Suture [place] With 1.33 Mm Suturetape Implanted:Qty: 2 on 09/05/2021 by Mario Desir DO at OR [facility] Left: Elbow 05/14/2026 [id number]-[id number] / / [id number] Description:with 1.3 mm Fibe rWire SutureTape and [place] Lead Kit Trial [id number] 50cm - [id number] - [id number] Implanted:Qty: 1 on 09/09/2023 by Jace Puente DO at OR [facility] Right: Back [employer] : PAIN MGMT 05/29/2025 [id number] 50E0 / [id number] / Lead Kit Trial [id number] 50cm - [id number] - [id number] Implanted:Qty: 1 on 09/09/2023 by Jace Puente DO at OR [facility] Left: Back [employer] : PAIN MGMT 06/13/2025 [id number] 50E0 / [id number] / Neurostimulator -11/05/2023 Implanted:11/05 by Yaniv Beckham DO (Quantity not on file) [employer] JACQUE 04/03/2025 SC-1232 / [id number] / [id number] Description:[place] Scientifi c Wavewriter Alpha SC-1232 Implanted at [facility] by Dr Beckham 11/05/23 documented as of this encounter Visit Diagnoses Diagnosis Worst headache of life- Primary Headache Upper respiratory tract infection, unspecified type documented in this encounter Advance Directives Latest [...] the patient have Health Care Power of Flatwork Presser? No Care Teams Tier Lift Truck Operator Relationship Specialty Start Date End Date Tiny Brownlee DO [address] [place] [address] PCP - General Family Medicine 12/30/21 documented as of this encounter
--- OUTSIDE RECORDS SUMMARY | 2024-05-07 01:05 | External Medical Summary | Summary of Care ---
Author Name Unknown Organization [facility] Address [address] [place] [address] Phone [phone] Care Team Providers Care Tracer Bullet Section Supervisor Name Role Phone Tiny Brownlee DO Primary Care Provider [phone] Encounter Details Date Type Department Care Team (Late st Contact Info) Description 02/21/2024 Orders Only Outcomes Research Department [address] [place] [address] Carolyn Kearney [facility]RA [facility] Other*[id number] Allergies No known active allergiesdocumented as of [...] 05/26/2013 8 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 management encounter 05/26/2013 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 05/26/2013 08/19/2017 Overview: ICD-10 update of inactive term 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 Normal , first 10/25/200311/15 Lumbago 12/03/2020 Major depressive disorder Overview: ICD-10 update of inactive term documented as of this encounter (statuses as of 02/21/2024) Immunizations Name Administration Dates Next Due COVID-19 mRNA, LNP-s, No Pre serve, 2-Dose Series ([employer]) 03/27/2021,02/12/2021 Seasonal Influenza Virus Vac cine, Unspecified [...] No 02/07/2015 documented as of this encounter Plan of Treatment Upcoming Encounters Date Type Department Care Team (Late st Contact Info) Description 03/20/2024 1:00 PM EDT Office Visit Podiatry [facility] [address] [facility] [place] [address] Pattie Barrera DPM [address] [place] [address] [place] [address] 06/21/2024 2:40 PM EDT Office Visit Family Practice [facility] [address] [facility] [place] [address] Tiny Brownlee DO [address] [facility] [place] [address] 02/16/2025 1:00 PM EDT Imaging Radiology [facility] 1st [facility] [address] [facility] [place] [address] Scheduled Orders Name Type Priority Associated Diagnoses Orde r Schedule MYCODE SUBSEQUENT ADULT Lab Routine MyCode Research Other*[id number] Every 6 Months for 2 Occurrences starting 02/21/2024 until 03/12/2025 Scheduled Procedures Name Priority Associated Diagnoses Date/Ti [...] Additional history exists Lipid Panel 12/13/2028 12/13/2023, /11/2017, 02/25/2016 DTaP,Tdap,and Td Vaccines (3 - Td [...] this encounter Medical Devices Implanted Type Area Creative Intern Device Identifier Shelf Expiration Date Model / Serial / Lot Lead-11/05/2023 Implanted:11/05 by Yaniv Beckham DO (Quantity not on file) Lead [employer] JACQUE 06/22/2025 SC-8336-50 / [id number] / NA Description:[employer] c Lead Kit 50CM #[id number] Beckham at [facility] on 11/05/23 Fibertak Dx Suture [place] With 1.33 Mm Suturetape Implanted:Qty: 2 on 09/05/2021 by Mario Desir DO at [facility] Left: Elbow 05/14/2026 [id number]-8990ST / / [id number] Description:with 1.3 mm Fibe rWire SutureTape and [place] Lead Kit Trial [id number] 50cm - [id number] - [id number] Implanted:Qty: 1 on 09/09/2023 by Jace Puente DO at OR [facility] Right: Back [employer] : PAIN MGMT 05/29/2025 [id number] 50E0 / [id number] / Lead Kit Trial [id number] 50cm - [id number] - [id number] Implanted:Qty: 1 on 09/09/2023 by Jace Puente, at OR [facility] Left: Back [employer] : PAIN MGMT 06/13/2025 [id number] 50E0 / [id number] / Neurostimulator -11/05/2023 Implanted:11/05 by Yaniv Beckham DO (Quantity not on file) [employer] JACQUE 04/03/2025 SC-1232 / [id number] / [id number] Description:[employer] Scient[employer] Wavewriter Alpha SC-1232 Implanted at [facility] by Dr Beckham 11/05/23 documented as of this encounter Visit Diagnoses Diagnosis MyCode Research Other*[id number] documented in this encounter Advance Directives Latest [...] the patient have Health Care Power of Zipper Trimmer? No Care Teams Tracer Bullet Section Supervisor Relationship Specialty Start Date End Date Tiny Brownlee DO [address] [place] [address] PCP - General Family Medicine 12/30/21 documented as of this encounter
--- NOTE | 2024-05-07 01:35 | Emergency Department Note ---
History of Present Illness General Chief complaint: Facial Injury/Pain Stated complaint: FACE PAIN INTO NECK Time Seen by Provider: 05/07/24 01:11 History of Present Illness Maximum Pain Intensity: 9 This 43-year-old female presents ER complaining of chest pain with jaw pain and neck swelling for the past day steadily getting worse. Patient denies fever, chills, cough, congestion, dental pain, throat pain, trauma to the area. She does not smoke. No history of similar symptoms in the past. Home Medications Medication Instructions Recorded Confirmed Type hydroxyzine HCl 25 mg tablet 25 mg PO Q6H PRN Anxiety 04/25/20 11/12/23 History omeprazole 40 mg capsule,delayed 40 mg PO BID 04/25/20 11/14/23 History release loratadine 10 mg tablet 10 mg PO QAM 12/03/20 11/12/23 History promethazine 25 mg tablet 25 mg PO Q6H PRN Nausea And 12/03/20 11/12/23 History Vomiting Medical Marijuana 1 dose PO HS sleep 05/16/21 11/12/23 History sennosides 8.6 mg tablet (Senokot) 8.6 mg PO HS PRN Constipation 09/21/21 11/12/23 History duloxetine 60 mg capsule,delayed 60 mg PO QAM 02/18/22 11/12/23 History release acidophilus 100 million 1 cap PO QAM 05/22/23 11/12/23 History cell-pectin, citrus 10 mg capsule ascorbic acid (vitamin C) 500 mg 500 mg PO QAM 05/22/23 11/12/23 History tablet bupropion HCl 300 mg 24 hr tablet, 300 mg PO QAM 05/22/23 11/12/23 History extended release celecoxib 100 mg capsule 100 mg PO DAILY PRN Pain 05/22/23 11/12/23 History cyclobenzaprine 10 mg tablet 10 mg PO BID PRN muscle spasm 05/22/23 11/12/23 History duloxetine 30 mg capsule,delayed 30 mg PO QAM 05/22/23 11/12/23 History release metoclopramide HCl 5 mg tablet 5 mg PO TID PRN Dyspepsia 05/22/23 11/12/23 History sumatriptan succinate 50 mg tablet 100 mg PO UD PRN migraines 05/22/23 11/12/23 History valacyclovir 1 gram tablet 2,000 mg PO Q12H PRN flare 05/22/23 11/12/23 History acetaminophen 500 mg tablet 1,000 mg (2 x 500 mg) PO Q8H #60 05/25/23 11/12/23 Rx (Tylenol Extra Strength) tabs docusate sodium 100 mg tablet 100 mg PO BID PRN Constipation #20 05/25/23 11/12/23 Rx tabs ibuprofen 400 mg tablet 400 mg PO Q6H PRN pain #30 tabs 05/25/23 11/12/23 Rx polyethylene glycol 3350 17 gram 17 g PO DAILY #14 ea 05/25/23 11/12/23 Rx oral powder packet (Miralax) naproxen 500 mg tablet 500 mg PO BID PRN pain #20 tabs 08/26/23 11/12/23 Rx oxycodone 5 mg tablet 5 mg PO Q6H PRN pain #30 tabs 11/05/23 11/12/23 Rx oxycodone 5 mg tablet 5 mg PO Q6H PRN pain #14 tabs 11/12/23 Rx lidocaine 4 % topical patch 1 patch topical DAILY PRN pain #10 11/15/23 Rx ea lidocaine 5 % topical patch 1 patch topical DAILY PRN pain #15 12/04/23 Rx ea methylprednisolone 4 mg tablets in See Rx Instructions .Route 12/04/23 Rx a dose pack .COMPLEX #21 ea oxycodone 5 mg tablet 5 mg PO Q8H PRN pain #9 tabs 12/04/23 Rx amoxicillin 875 mg-potassium 1 tab PO BID 7 days #14 tabs 05/07/24 Rx clavulanate 125 mg tablet prednisone 20 mg tablet 60 mg (3 x 20 mg) PO DAILY 4 days 05/07/24 Rx #12 tabs Allergies Allergy/AdvReac Type Severity Reaction Status Date / Time tramadol AdvReac Mild "Did not Verified 11/05/23 08:15 help" with pain Past Med/Surg History Problem List Chest pain (Acute) Cervical lymphadenopathy (Acute) Paresthesia (Acute) Status post surgery (Acute) Acute left flank pain (Acute) Postlaminectomy syndrome of lumbar region Chest pain (Acute) Postoperative pain (Acute) Atypical chest pain H/O cervical spine surgery (Acute) Acute medial meniscus tear of right knee DDD (degenerative disc disease), lumbar Chronic maxillary sinusitis Sinus drainage Oral fistula Encounter for pre-operative examination Preop general physical exam Acute sinusitis with symptoms greater than 10 days Acute sinusitis treated with antibiotics in the past 60 days Oral fistula Chronic maxillary sinusitis Back problem Arthritis Failure of outpatient treatment (Acute) Cellulitis of neck (Acute) GERD (gastroesophageal reflux disease) H/O: hysterectomy Chronic back pain STENOSIS Depression Anxiety History of pancreatitis (Chronic) Esophageal spasm (Chronic) Pelvic pain (Chronic) Acute exacerbation of chronic low back pain (Chronic) Diarrhea (Acute) Substernal chest pain (Chronic) Elevated liver enzymes Cholecystitis, acute Nausea, vomiting, and diarrhea Shortness of breath Chest pain Palpitations (Acute) Temporomandibular joint disorder (Chronic 05/21/13) Migraine Fibromyalgia Degenerative disc disease Lumbar GERD (gastroesophageal reflux disease) controlled, stable per pt History of cholecystectomy Hx of shoulder surgery Right History of knee surgery Left knee x2 (open + arthroscopic, 1997) Medical History Refusal of blood transfusions as patient is Catholic Hx of chest pain 05/2023, seen in [facility] er, ~1 week post-op from cervical spine sx.; no cardiac findings, "thought to be from post-op pain, no signs of pulmonary embolism either" Spinal stenosis Arthritis History of skin cancer removed Anxiety and depression Pulmonary embolism 2014- ? r/t control, was on blood thinner for short period of time Surgical History Hx of cervical spine surgery ~05/2023 History of sinus surgery Closure of Large Oral Sinus Opening, Left Sinus [place] (2020, [place]) H/O exploratory laparotomy History of tooth extraction History of esophagogastroduodenoscopy (EGD) History of colonoscopy Family History Grandfather Family history of diabetes mellitus Grandmother Family history of diabetes mellitus Grandmother Family hx of colon cancer Grandmother (Maternal) Diabetes Colorectal cancer Father Heart disease Mother Hypertension Uncle Stroke Other Cancer Gall bladder disease Lung disease No family history of adverse response to anesthesia Social History Smoking Status: Never smoker Second Hand Exposure: No; Do You Dip or Chew Tobacco: No; Hx Alcohol Use: Yes Alcohol type: wine Alcohol Intake Frequency: Monthly or Less Hx Substance Use: Yes Last Used Substance: Hours (ago) Last Used Substance Other:: Uses tincture under tongue nightly for sleep. Substance Use Type Other:: Medical Marijuana Card. Preferred Language: Georgian Communication Ability: Effective Visual Impairment: No Limitations Digital Analyst Required: No Beliefs That Will Affect Care: Orthodox Orthodox Beliefs: Catholic. 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 Feels Safe at Home: Yes Assistive Devices: Raised Toilet Seat and Walker Review of Systems A total of 10 systems reviewed and were otherwise negative Physical Exam Vital Signs Vital Signs - 24 hr 05/07/24 01:03 05/07/24 01:10 05/07/24 01:18 Temperature 37.2 C Temperature Source Temporal Artery Scan Pulse Rate 100 H 98 H Pulse Rate [Apical] 102 H Pulse Rhythm [Apical] Regular Pulse Strength [Apical] Normal Respiratory Rate 20 27 H Respiratory Effort / Characteristics Non-Labored Respiratory Depth Normal Respiratory Pattern Regular Blood Pressure 159/99 H Blood Pressure [Right Arm] 208/115 H Blood Pressure Mean 119 Blood Pressure Mean [Right Arm] 146 Blood Pressure Position [Right Arm] Lying Pulse Oximetry 96 96 Oxygen Delivery Method Room Air Room Air Sepsis Recent Fever Within 48 Hours No Sepsis New/Unexplained Change in Mental Status No Sepsis Action Taken by Nursing No Action Required 05/07/24 01:21 05/07/24 01:30 05/07/24 02:00 Temperature Temperature Source Pulse Rate 97 H Pulse Rate [Apical] 95 H 99 H Pulse Rhythm [Apical] Regular Regular Pulse Strength [Apical] Normal Normal Respiratory Rate 21 18 21 Respiratory Effort / Characteristics Non-Labored Non-Labored Respiratory Depth Normal Normal Respiratory Pattern Regular Regular Blood Pressure Blood Pressure [Right Arm] 172/111 H 174/120 H Blood Pressure Mean Blood Pressure Mean [Right Arm] 131 138 Blood Pressure Position [Right Arm] Lying Pulse Oximetry 94 95 94 Oxygen Delivery Method Room Air Room Air Room Air Sepsis Recent Fever Within 48 Hours Sepsis New/Unexplained Change in Mental Status Sepsis Action Taken by Nursing VITALS: Vitals are noted on the nurse's note and reviewed by myself. Vital signs stable. GENERAL: Pleasant female, in no acute distress, nondiaphoretic, well-developed well-nourished. SKIN: Mild facial swelling noted, the rest of the skin was without rashes, erythema, edema, or bruising. There is no tenting of the skin. Capillary reflex less than 2 seconds. HEAD: Normocephalic atraumatic. EARS: External auditory canals clear EYES: Pupils equal round and reactive to light and accommodation. Conjunctivae without injection, sclerae without icterus. Extraocular movements intact. NOSE: Patent, no discharge. MOUTH: Mucous membranes moist. Pharynx without erythema or exudate. Uvula midline. Airway patent. Tongue does not deviate. Dental exam: no dental infection, no lugwigs NECK: Supple without nuchal rigidity. Shotty anterior cervical lymphadenopathy. No thyromegaly. Cervical spine is nontender. No JVD. HEART: Regular rate and rhythm LUNGS: Clear to auscultation bilaterally without wheezes, rales or rhonchi. No retractions or accessory muscle use. ABDOMEN: Positive bowel sounds x 4. Normal tympanic percussion. Soft, nontender, without masses or organomegaly. Hansen sign negative. No guarding or rebound tenderness. No CVA tenderness MUSCULOSKELETAL: No muscle atrophy, erythema, or edema noted. NEURO: Patient was alert and oriented to person place and time. Normal sensation to light and sharp touch. No focal neurological deficits. Course Administered Medications Hydromorphone HCl (Hydromorphone Inj 0.5 Mg/0.5 Ml Syr) 0.5 mg IV Q15M PRN PRN Reason: Pain Stop: 05/21/24 03:03 Last Admin: 05/07/24 04:15 Dose: 0.5 mg Documented By: Admin: 05/07/24 03:09 Dose: 0.5 mg Documented By: GAUDENCIO Discontinued Medications Dexamethasone Sodium Phosphate (DexamethasonePf 10 Mg/Ml Vial) 10 mg IV NOW ONE Stop: 05/07/24 01:22 Last Admin: 05/07/24 01:54 Dose: 10 mg Documented By: GAUDENCIO Sodium Chloride (Nss) 1,000 mls @ 999 mls/hr IV .Q1H1M ONE Stop: 05/07/24 02:21 Last Infusion: 05/07/24 03:00 Dose: Infused Documented By: Admin: 05/07/24 01:54 Dose: 999 mls/hr Documented By: GAUDENCIO Ceftriaxone Sodium (Rocephin) 2,000 mg in 50 mls @ 100 mls/hr IV NOW STA Stop: 05/07/24 04:28 Last Admin: 05/07/24 04:15 Dose: 100 mls/hr Documented By: GAUDENCIO Ioversol (Optiray 320 125ml) 118 ml IV ONCE ONE Stop: 05/07/24 02:13 Last Admin: 05/07/24 02:14 Dose: 118 ml Documented By: KIAN Morphine Sulfate (Morphine Sulfate 4 Mg/Ml 1 Ml Carp\\Vial) 4 mg IV NOW STA Stop: 05/07/24 01:46 Last Admin: 05/07/24 01:54 Dose: 4 mg Documented By: GAUDENCIO Morphine Sulfate (Morphine Sulfate 4 Mg/Ml 1 Ml Carp\\Vial) 4 mg IV NOW STA Stop: 05/07/24 02:34 Last Admin: 05/07/24 02:36 Dose: 4 mg Documented By: GAUDENCIO Ondansetron HCl (Ondansetron Inj 2 Mg/Ml 2 Ml Vial) 4 mg IV NOW STA Stop: 05/07/24 01:46 Last Admin: 05/07/24 01:54 Dose: 4 mg Documented By: GAUDENCIO Medical Decision Making Medical Records Attestation: I reviewed the patient's medical records. Home Medications Current Medication List: was personally reviewed by me Laboratory Data Attestation: I reviewed the patient's lab results. 05/07/24 00:20 05/07/24 00:20 Lab Results 05/07/24 05/07/24 05/07/24 Range/Units 00:20 03:00 04:04 WBC 8.07 (4.8-10.8) K/ul RBC 4.68 (4.20-5.40) M/uL Hgb 13.2 (12.0-16.0) g/dl Hct 39.8 (37.0-47.0) % MCV 85.0 (80.0-100.0) fL MCH 28.2 (25.0-34.0) pg MCHC 33.2 (32.0-36.0) g/dL RDW Std Deviation 38.9 (36.4-46.3) fL RDW Coeff of Rm 13.0 (11.5-14.5) % Plt Count 264 (130-400) K/uL MPV 8.9 L (9.4-12.4) fL Immature Gran % (Auto) 0.6 % Neut % (Auto) 65.4 % Lymph % (Auto) 21.7 % [place] % (Auto) 9.7 % Eos % (Auto) 1.9 % Baso % (Auto) 0.7 % Neut # (Auto) 5.28 (1.40-6.50) K/uL Lymph # (Auto) 1.75 (1.20-3.40) K/uL [place] # (Auto) 0.78 H (0.11-0.59) K/uL Eos # (Auto) 0.15 (0.00-0.50) K/uL Baso # (Auto) 0.06 (0.00-0.20) K/uL Immature Gran # (Auto) 0.05 (0.01-0.20) K/uL Sodium 133 L (136-145) mmol/L Potassium 3.8 (3.5-5.1) mmol/L Chloride 100 (98-107) mmol/L Carbon Dioxide 25 (21-32) mmol/L Anion Gap 8 (3-11) BUN 14 (6-23) mg/dl Creatinine 0.92 (0.6-1.2) mg/dl Est Cr Clr Drug Dosing 91.2 ml/min Est GFR ( Amer) 87.2 ml/min Est GFR (Non-Af Amer) 75.2 ml/min BUN/Creatinine Ratio 15.2 (10-20) Glucose 96 (70-99(Fasting)) mg/dl Calcium 9.5 (8.6-10.3) mg/dl Magnesium 2.0 (1.7-2.4) mg/dl Total Bilirubin 0.8 (0.2-1.0) mg/dl AST 34 (13-39) U/L ALT 46 (7-52) U/L Alkaline Phosphatase 114 H (34-104) U/L Troponin I High Sens 6.3 6.3 (0-14) pg/ml Total Protein 7.7 (6.0-8.3) gm/dl Albumin 4.5 (3.4-5.0) gm/dl Globulin 3.2 (2.5-4.0) gm/dl Albumin/Globulin Ratio 1.4 (0.9-2) Amylase 38 (25-115) U/L Lipase 24 (11-82) U/L TSH 4.422 (0.300-4.500) uIu/ml HCG, Qual Negative (Negative) Adenovirus (PCR) Not Detected (NotDetected) B. pertussis DNA (PCR) Not Detected (NotDetected) B.parapertussis DNA PCR Not Detected (NotDetected) C. pneumoniae DNA (PCR) Not Detected (NotDetected) Coronavirus OC43 (PCR) Not Detected (NotDetected) Coronavirus HKU1 (PCR) Not Detected (NotDetected) Coronavirus 229E (PCR) Not Detected (NotDetected) SARS-CoV-2 (PCR) Not Detected (NotDetected) Coronavirus NL63 (PCR) Not Detected (NotDetected) Monoscreen Negative (Negative) Human Metapneumovir PCR Not Detected (NotDetected) Influenza Type A (PCR) Not Detected (NotDetected) Influenza Type B (PCR) Not Detected (NotDetected) M. pneumoniae (PCR) Not Detected (NotDetected) Parainfluenza 1 (PCR) Not Detected (NotDetected) Parainfluenza 2 (PCR) Not Detected (NotDetected) Parainfluenza 3 (PCR) Not Detected (NotDetected) Parainfluenza 4 (PCR) Not Detected (NotDetected) RSV (PCR) Not Detected (NotDetected) Entero/Rhino (PCR) Not Detected (NotDetected) Imaging Data Attestation: I personally reviewed and interpreted this imaging study as follows: Radiologist's Impression: Chest CTA 05/07/24 01:21 Exam(s): CTA CHEST IV Amt: 118 cc opti 320 EXAM: CT Angiography Chest With Intravenous Contrast CLINICAL HISTORY: Reason for exam: PE/SVC syndrome. TECHNIQUE: Axial computed tomographic angiography images of the chest with intravenous contrast. CTDI is 28.05 mGy and DLP is 1559.3 mGy-cm. Automated exposure control was utilized for the study. A dose lowering technique was utilized adhering to the principles of ALARA. MIP reconstructed images were created and reviewed. COMPARISON: No relevant prior studies available. FINDINGS: Pulmonary arteries: Unremarkable. No pulmonary embolism. Aorta: No acute findings. No thoracic aortic aneurysm. Superior vena cava: Unremarkable as visualized. No occlusion of the superior vena cava. Lungs: Unremarkable. No mass. No consolidation. Pleural space: Unremarkable. No significant effusion. No pneumothorax. Heart: Unremarkable. No cardiomegaly. No significant pericardial effusion. No evidence of RV dysfunction. Bones/joints: No acute fracture. No dislocation. Soft tissues: Unremarkable. Lymph nodes: Unremarkable. No enlarged lymph nodes. Tubes, lines and devices: Delores stimulator leads. IMPRESSION: No occlusion of the superior vena cava. Electronically signed by: Jack Smith MD 05/07/24 02:46 AM Soft Tissue Neck CT 05/07/24 01:21 Exam(s): CT NECK With Contrast IV Amt: 118 cc opti 320 EXAM: CT Neck With Intravenous Contrast CLINICAL HISTORY: Reason for exam: B jaw/neck pain/swelling, ? infx/obstruction/mass. TECHNIQUE: Axial computed tomography images of the neck with intravenous contrast. CTDI is 28.05 mGy and DLP is 1559.3 mGy-cm. Automated exposure control was utilized for the study. A dose lowering technique was utilized adhering to the principles of ALARA. CONTRAST: Patient received 118 cc opti 320 of IV contrast COMPARISON: No relevant prior studies available. FINDINGS: Oropharynx: Unremarkable. No significant tonsillar enlargement. No peritonsillar abscess. Hypopharynx: Unremarkable. Larynx: Unremarkable. Normal epiglottis. Trachea: Unremarkable. Retropharyngeal space: Unremarkable. Submandibular/parotid glands: Unremarkable. Glands are normal in size. Thyroid: Unremarkable. No enlarged or calcified nodules. Bones/joints: No acute fracture. Status post disc replacement at C5-6. Soft tissues: Unremarkable. Vasculature: Tortuous and ectatic external jugular vein along the anterior cervical soft tissues and right submandibular space. Lymph nodes: Prominent cervical lymph nodes with prominent lymph node in the left ascending tubular space. Lung apices: Unremarkable as visualized. IMPRESSION: Prominent cervical lymph nodes. No evidence of mass or lesion. Ectatic and tortuous external jugular vein overlying the anterior cervical soft tissues and right submandibular space Electronically signed by: Zohreh Floyd MD 05/07/24 03:47 AM MDM Narrative Prior records/ancillary studies reviewed. Triage Nursing notes reviewed. Additional history obtained from nursing. The patient's history was concerning for facial swelling, neck pain and chest pain Differential diagnosis: Etiologies such as SVC syndrome, parotitis, mumps, dental infection, epiglottitis, throat infection, salivary stone, cardiac ischemia, aortic dissection, pulmonary embolism, pneumonia, pneumothorax, musculoskeletal, infections, pericarditis, myocarditis, esophageal rupture, gastrointestinal, as well as others were entertained. Physical examination: As above. ER treatment provided: An order was placed for continuous cardiac monitoring. The monitor shows a rate of 60-100 with a sinus rhythm per my interpretation. IV fluids, Decadron, morphine On reassessment the patient felt better. Diagnostic interpretation by me: The electrocardiogram was negative for pathologic change. Ordered for chest pain EKG: Normal sinus, poor baseline, no acute ST-T wave changes. Impression normal sinus rhythm independently interpreted by myself I think arrhythmia is unlikely. EKG shows normal sinus rhythm with no interval abnormalities such as QT prolongation or WPW. There are no findings to suggest Brugada syndrome. Cardiac monitoring in the emergency department reveals no tachycardic or bradycardic dysrhythmia. Hypertrophic cardiomyopathy was considered but there are no clear historical elements pointing toward this. EKG is not suggestive. The QRS voltage is not extremely large and there are no suggestive Q waves. The labs Independently Interpreted by myself revealed 2 negative troponins No worrisome leukocytosis, stable H&H neg mono Imaging studies: Chest x-ray with no acute consolidation, pneumothorax or free air per my independent interpretation. Artifact is present most likely related to the stimulator Imaging as above HEART SCORE: Hx: high/mod/low suspicion: 0 ECG: ST depression/nonspecific changes/normal: 0 Age: Greater than 65/45-64/less than 45: 1 Risk factors: (Hypertension, hyperlipidemia, diabetes, coronary disease, tobacco use, cocaine use): 1 Troponin: Greater than 2 times normal limits/1-2 times normal limits/normal: 0 Total: 2 Exam and history seem consistent with cervical lymphadenopathy. CTA was negative for obstruction or mass or infection. Low heart score. 2 negative troponins. Nonischemic EKG. Patient was advised take the medicines as directed and follow-up family care in a few days or here in the ER sooner for high fevers, lethargy, neck stiffness, worsening signs or symptoms or as needed. Patient was advised to see her family doctor for her elevated blood pressure. By the evaluation outlined above emergent etiologies such as cardiac ischemia, aortic dissection, pulmonary embolism, pneumonia, pneumothorax, pericarditis, myocarditis, gastrointestinal, as well as others were deemed relatively unlikely. The pt informed about the findings as listed above. All questions were answered and pleased with the treatment. Return instructions were outlined and the patient was discharged in stable condition. Outpatient prescription management: Augmentin, prednisone Referral: The patient was referred back to primary care physician for follow-up in 2 to 3 days for a recheck of the current condition. The chart was completed utilizing JOOR Speech voice recognition software. Grammatical errors, random word insertions, pronoun errors, and incomplete sentences are an occassional consequence of this system due to software limitations, ambient noise, and hardware issues. Any formal questions or concerns about the content, text, or information contained within the body of this dictation should be directly addressed to the physician home based assistant for clarification. Impression & Plan Cervical lymphadenopathy, Chest pain Discharge Plan Visit Data Chief Complaint: Facial Injury/Pain Stated Complaint: FACE PAIN INTO NECK ED Provider: Radha Greer ED Midlevel Provider: Carolyn Marmolejo Discharge Problem: Cervical lymphadenopathy, Chest pain Patient Disposition: Home - Self-Care Condition: Good Discharge Instructions Krames/Other Patient Handouts: Lymphadenopathy Activity Restrictions/Additional Instructions: DO NOT drive, drink alcohol, operate machinery, or perform dangerous activities today. You were given medications in the ER that can affect your ability to safely function or operate a vehicle. Your blood pressure was elevated. Recheck this with the family doctor. Prednisone as directed. Start this Wednesday morning. You received a dose in the ER. Amoxicillin Clavulanate (Augmentin) 875mg: Take one pill twice daily for 7 days for your infection. All antibiotics can cause diarrhea. If this occurs and you feel worse or it does not resolve in 1-2 days follow up with your doctor or return to the Emergency Department as this could be signs of serious underlying problems. Any medication can cause an allergic reaction, stop the pills immediately and return to the ER for rash, hives, breathing difficulties, or swelling. Ibuprofen(Motrin, Advil) may be used for fever or pain. Use 400mg every six hours as needed. Take with food. Avoid using more than 1600mg in a 24 hour period. Do not use 1600mg per day for more than three consecutive days without physician direction. Prolonged inappropriate use can lead to stomach upset or ulcers. (AND/OR) Acetaminophen(Tylenol) may be used for fever or pain. Use 1000mg every six hours as needed. Avoid using more than 3000mg in a 24 hour period. Rest and drink plenty of fluids. Continue current medications. Return to the ER for severe pain, fevers, spreading redness, or any worsening of your condition. Follow up with your primary physician within 2-3 days for a recheck of the current condition. Forms Stand Alone Forms: Work/School Release (ED), [facility], Important Visit Information Prescriptions Prescriptions: New amoxicillin-pot clavulanate 875-125 mg tablet 1 tab PO BID 7 Days Qty: 14 0RF prednisone 20 mg tablet 60 mg PO DAILY 4 Days Qty: 12 0RF No Action promethazine 25 mg Tablet 25 mg PO Q6H PRN (Reason: Nausea And Vomiting) loratadine 10 mg Tablet 10 mg PO QAM omeprazole 40 mg capsule,delayed release(DR/EC) 40 mg PO BID hydroxyzine HCl 25 mg tablet 25 mg PO Q6H PRN (Reason: Anxiety) Medical Marijuana 1 dose PO HS Patient Comments: SL/ORAL INGEST ONLY duloxetine 60 mg capsule,delayed release(DR/EC) 60 mg PO QAM Rx Instructions: Take 60mg w/30mg capsule to equal 90mg every morning valacyclovir 1 gram tablet 2,000 mg PO Q12H PRN (Reason: flare) sumatriptan succinate 50 mg tablet 100 mg PO UD PRN (Reason: migraines) Rx Instructions: Take 2 tablets at onset of migraine and one tablet every 2 hours as needed, not more than 5 tablets in 24 hours duloxetine 30 mg capsule,delayed release(DR/EC) 30 mg PO QAM Rx Instructions: Take 30mg w/60mg capsule to equal 90mg every morning metoclopramide HCl 5 mg tablet 5 mg PO TID PRN (Reason: Dyspepsia) ascorbic acid (vitamin C) 500 mg Tablet 500 mg PO QAM celecoxib 100 mg capsule 100 mg PO DAILY PRN (Reason: Pain) bupropion HCl 300 mg tablet extended release 24 hr 300 mg PO QAM acidophilus-pectin, citrus 100 million cell-10 mg Capsule 1 cap PO QAM cyclobenzaprine 10 mg tablet 10 mg PO BID PRN (Reason: muscle spasm) acetaminophen [Tylenol Extra Strength] 500 mg Tablet 1,000 mg PO Q8H Qty: 60 0RF polyethylene glycol 3350 [Miralax] 17 gram Powder In Packet 17 g PO DAILY Qty: 14 0RF Rx Instructions: as needed ibuprofen 400 mg tablet 400 mg PO Q6H PRN (Reason: pain) Qty: 30 0RF docusate sodium 100 mg Tablet 100 mg PO BID PRN (Reason: Constipation) Qty: 20 0RF naproxen 500 mg tablet 500 mg PO BID PRN (Reason: pain) Qty: 20 0RF oxycodone 5 mg tablet 5 mg PO Q6H PRN (Reason: pain) Qty: 14 0RF lidocaine 4 % adhesive patch,medicated 1 patch topical DAILY PRN (Reason: pain) Qty: 10 0RF Rx Instructions: may leave on for up to 12 hrs lidocaine 5 % adhesive patch,medicated 1 patch TOP DAILY PRN (Reason: pain) Qty: 15 0RF Rx Instructions: leave on most painful area for 12 hrs methylprednisolone 4 mg tablets,dose pack See Rx Instructions .ROUTE .COMPLEX Qty: 21 0RF Rx Instructions: Please follow instructions per blister pack. oxycodone 5 mg tablet 5 mg PO Q8H PRN (Reason: pain) Qty: 9 0RF sennosides [Senokot] 8.6 mg tablet 8.6 mg PO HS PRN (Reason: Constipation) oxycodone 5 mg tablet 5 mg PO Q6H PRN (Reason: pain) Qty: 30 0RF Referrals Referrals: Tiny Brownlee DO [Primary Care Provider] -
[2024-05-07 01:38] LABS: Basophils # (auto) 0.06 K/uL (0.00-0.20); Basophils % (auto) 0.7 %; Eosinophils # (auto) 0.15 K/uL (0.00-0.50); Eosinophils % (auto) 1.9 %; Hematocrit (blood only) 39.8 % (37.0-47.0); Hemoglobin 13.2 g/dl (12.0-16.0); Immature Granulocytes # (auto) 0.05 K/uL (0.01-0.20); Immature Granulocytes % (auto) 0.6 %; Lymphocytes # (auto) 1.75 K/uL (1.20-3.40); Lymphocytes % (auto) 21.7 %; Mean Corpuscular Hemoglobin 28.2 pg (25.0-34.0); Mean Corpuscular Hgb Conc 33.2 g/dL (32.0-36.0); Mean Platelet Volume 8.9 fL (9.4-12.4); Monocytes # (auto) 0.78 K/uL (0.11-0.59); Monocytes % (auto) 9.7 %; Neutrophils # (auto) 5.28 K/uL (1.40-6.50); Neutrophils % (auto) 65.4 %; Platelet Count 264 K/uL (130-400); RDW Standard Deviation 38.9 fL (36.4-46.3); Red Blood Count 4.68 M/uL (4.20-5.40); White Blood Count 8.07 K/ul (4.8-10.8)
[2024-05-07 01:53] LABS: Albumin Globulin Ratio 1.4 (0.9-2); Albumin Level 4.5 gm/dl (3.4-5.0); BUN Creatinine Ratio 15.2 (10-20); Bilirubin,Total 0.8 mg/dl (0.2-1.0); Calcium 9.5 mg/dl (8.6-10.3); Creatinine Clr Calc Pharmacy 91.2 ml/min; Est GFR (African American) 87.2 ml/min; Est GFR (Non-African American) 75.2 ml/min; Globulin 3.2 gm/dl (2.5-4.0); Potassium 3.8 mmol/L (3.5-5.1); Pregnancy Test, Serum Negative (Negative); Total Protein 7.7 gm/dl (6.0-8.3)
[2024-05-07] MEDS: SODIUM CHLORIDE 0.9% 1,000 ML IV ONE (01:54)
[2024-05-07] MEDS: MoRPHine SULFATE 4 MG/ML 1 ML CARP\\VIAL IV STA ×2 (01:54→02:36)
[2024-05-07] MEDS: ONDANSETRON INJ 2 MG/ML 2 ML VIAL IV STA (01:54)
[2024-05-07] MEDS: dexAMETHasone**PF** 10 MG/ML VIAL IV ONE (01:54)
[2024-05-07 01:59] LABS: Troponin I High Sensitivity 6.3 pg/ml (0-14)
[2024-05-07 02:08] LABS: Thyroid Stimulating Hormone 4.422 uIu/ml (0.300-4.500)
[2024-05-07] MEDS: OPTIRAY 320 125ml IV ONE (02:14)
--- NOTE | 2024-05-07 02:47 | CT Scan Report ---
Exam(s): CTA CHEST IV Amt: 118 cc opti 320 EXAM: CT Angiography Chest With Intravenous Contrast CLINICAL HISTORY: Reason for exam: PE/SVC syndrome. TECHNIQUE: Axial computed tomographic angiography images of the chest with intravenous contrast. CTDI is 28.05 mGy and DLP is 1559.3 mGy-cm. Automated exposure control was utilized for the study. A dose lowering technique was utilized adhering to the principles of ALARA. MIP reconstructed images were created and reviewed. COMPARISON: No relevant prior studies available. FINDINGS: Pulmonary arteries: Unremarkable. No pulmonary embolism. Aorta: No acute findings. No thoracic aortic aneurysm. Superior vena cava: Unremarkable as visualized. No occlusion of the superior vena cava. Lungs: Unremarkable. No mass. No consolidation. Pleural space: Unremarkable. No significant effusion. No pneumothorax. Heart: Unremarkable. No cardiomegaly. No significant pericardial effusion. No evidence of RV dysfunction. Bones/joints: No acute fracture. No dislocation. Soft tissues: Unremarkable. Lymph nodes: Unremarkable. No enlarged lymph nodes. Tubes, lines and devices: Delores stimulator leads. IMPRESSION: No occlusion of the superior vena cava. Electronically signed by: Jack Smith MD 05/07/24 02:46 AM
[2024-05-07] MEDS: HYDROmorphone INJ 0.5 MG/0.5 ML SYR IV PRN (03:09)
--- NOTE | 2024-05-07 03:48 | CT Scan Report ---
Exam(s): CT NECK With Contrast IV Amt: 118 cc opti 320 EXAM: CT Neck With Intravenous Contrast CLINICAL HISTORY: Reason for exam: B jaw/neck pain/swelling, ? infx/obstruction/mass. TECHNIQUE: Axial computed tomography images of the neck with intravenous contrast. CTDI is 28.05 mGy and DLP is 1559.3 mGy-cm. Automated exposure control was utilized for the study. A dose lowering technique was utilized adhering to the principles of ALARA. CONTRAST: Patient received 118 cc opti 320 of IV contrast COMPARISON: No relevant prior studies available. FINDINGS: Oropharynx: Unremarkable. No significant tonsillar enlargement. No peritonsillar abscess. Hypopharynx: Unremarkable. Larynx: Unremarkable. Normal epiglottis. Trachea: Unremarkable. Retropharyngeal space: Unremarkable. Submandibular/parotid glands: Unremarkable. Glands are normal in size. Thyroid: Unremarkable. No enlarged or calcified nodules. Bones/joints: No acute fracture. Status post disc replacement at C5-6. Soft tissues: Unremarkable. Vasculature: Tortuous and ectatic external jugular vein along the anterior cervical soft tissues and right submandibular space. Lymph nodes: Prominent cervical lymph nodes with prominent lymph node in the left ascending tubular space. Lung apices: Unremarkable as visualized. IMPRESSION: Prominent cervical lymph nodes. No evidence of mass or lesion. Ectatic and tortuous external jugular vein overlying the anterior cervical soft tissues and right submandibular space Electronically signed by: Zohreh Floyd MD 05/07/24 03:47 AM
[2024-05-07 04:02] LABS: Adenovirus PCR Not Detected (NotDetected); Bordetella parapertussis PCR Not Detected (NotDetected); Bordetella pertussis PCR Not Detected (NotDetected); Chlamydia pneumoniae PCR Not Detected (NotDetected); Coronavirus 229E PCR Not Detected (NotDetected); Coronavirus CoV-2 (COVID19)PCR Not Detected (NotDetected); Coronavirus HKU1 PCR Not Detected (NotDetected); Coronavirus NL63 PCR Not Detected (NotDetected); Coronavirus OC43PCR Not Detected (NotDetected); Human Metapneumovirus PCR Not Detected (NotDetected); Influenza A PCR Not Detected (NotDetected); Influenza B PCR Not Detected (NotDetected); Mycoplasma pneumoniae PCR Not Detected (NotDetected); Parainfluenza Virus 1 PCR Not Detected (NotDetected); Parainfluenza Virus 2 PCR Not Detected (NotDetected); Parainfluenza Virus 3 PCR Not Detected (NotDetected); Parainfluenza Virus 4 PCR Not Detected (NotDetected); Respiratory Syncytial VirusPCR Not Detected (NotDetected); Rhinovirus/Enterovirus PCR Not Detected (NotDetected)
[2024-05-07] MEDS: cefTRIAXone SODIUM 2,000 MG/50 ML BAG IV STA (04:15)
--- NOTE | 2024-05-07 09:00 | XRay Report ---
SINGLE VIEW CHEST CLINICAL HISTORY: Atypical chest pain. FINDINGS: An AP, portable, upright chest radiograph is compared to chest x-ray and chest CT dated 05/22. The examination was repeated due to severe artifact on the initial image. The cardiomediastina l silhouette is unremarkable. The lungs and pleural spaces are clear. No pneumothorax is seen. The [place] thorax is grossly intact. Postsurgical change is noted in the lower cervical spine. An intrathecal lead projects over the thoracic spine. IMPRESSION: No active disease in the chest. ACT 112: Negative or not required by law. Electronically signed by: Robinson Carpenter M.D. 05/07/2024 8:59 AM
--- NOTE | 2024-05-07 09:13 | Electrocardiogram Report ---
Test Reason : Blood Pressure : / mmHG Vent. Rate : 090 BPM Atrial Rate : 090 BPM P-R Int : 136 ms QRS Dur : 096 ms QT Int : 328 ms P-R-T Axes : 028 013 019 degrees QTc Int : 401 ms Poor data quality, interpretation may be adversely affected Normal sinus rhythm Poor R wave progression, consider anterior CT vs. lead placement vs. LVH Nonspecific T wave abnormality Anterior leads Abnormal ECG When compared with ECG of 02-NOV-2023 13:16, Nonspecific T wave abnormality Anterior leads now present Confirmed by Emilio Tom ([id number]) on 05/07/2024 9:13:31 AM Referred By: REFERRED SELF Confirmed By:Emilio Tom
--- NOTE | 2024-05-07 09:18 | Emergency Department Note ---
ED Visit Note Nursing staff came and spoke with me regarding this patient. She was already discharged by overnight staff[]
[2024-05-07] MEDS: KETOROLAC TROMETHAMINE 15 MG/ML VIAL IV STA (10:20)
--- NOTE | 2024-05-07 10:22 | Emergency Department Note ---
ED Visit Note Nursing staff came and spoke with me regarding this patient. She was already discharged by overnight staff and is waiting for her to come pick her up. Nursing staff is concerned because the patient has continued to require several doses of IV Dilaudid to control her pain, and she is now requiring nasal cannula oxygen. I evaluated the patient at bedside and performed a history and physical exam. HPI: This is a 43-year-old female who presented to the emergency department last night around 1 AM with complaint of bilateral jaw and neck pain radiating into the left shoulder and chest. At the time I evaluated the patient, she has persistent severe bilateral jaw and neck pain, worse on the left and also reports generalized headache and left facial numbness/tingling that involves her cheek, lips, and chin only on the left. She reports having the numbness and tingling since last night prior to coming to ED. She reports that she has d ifficulty opening and closing her jaw because of severe pain, and feels that she cannot fully close her jaw. She denies any fevers or chills. Patient's also provides some history, notes that night they went to a [employer] game and they were cheering and screaming loudly a lot. The next morning she woke up and her voice was hoarse, but no other symptoms. Yesterday (Wednesday) morning she woke up feeling unwell, complaining of headaches, bilateral jaw pain and neck pain. She has had persistent voice hoarseness. She tried ice and Tylenol without improvement. PHYSICAL EXAM: CONSTITUTIONAL: Pleasant and cooperative. No acute distress. Well appearing and well nourished. HEENT: Normocephalic, atraumatic. PERRL, EOMI with no nystagmus, diplopia, or tenderness. TMs normal bilateral. Pharynx is not erythematous, no tonsillar edema or exudate. Moderate trismus, and jaw does not fully close. Airway patent. Hoarse voice. Tenderness to palpation over the TMJ region bilaterally and masseter muscles with mild left facial swelling appreciated. No erythema or warmth. NECK: Severe bilateral anterior neck muscle spasm noted. Decreased range of motion in the neck, especially extension and rotation to the right. Tenderness to palpation throughout the neck musculature, more tender on the left. No midline tenderness of the cervical spine. RESPIRATORY: Clear to auscultation bilaterally with no wheezing, crackles, rhonchi or stridor. Equal expansion bilaterally. CARDIOVASCULAR: Regular rate and rhythm with no murmurs, rubs or gallops. Normal peripheral perfusion, 2+ pulses in all 4 extremities. No peripheral edema. GASTROINTESTINAL: Soft, nontender, nondistended. No rebound tenderness or guarding. No palpable masses or HSM. Bowel sounds present in all quadrants. MUSCULOSKELETAL: Full range of motion of all extremity joints without discomfort. INTEGUMENTARY: No rash or other significant dermatologic conditions noted. NEUROLOGIC: Alert and oriented X 4 with normal affect. Cranial nerves II-XII grossly intact, no facial droop. Decreased sensation of left face in left cheek, left upper and lower lip, and left jaw to light touch. Normal sensation of the right side of the face. Normal strength and sensation in all 4 extremities. Normal speech. Normal gait observed. INTERPRETATION OF LABS (Done at 1009): No leukocytosis, no anemia, normal platelets, mild hyponatremia and hyperglycemia, normal renal function, mildly elevated alk phos, otherwise normal liver enzymes. Repeat troponin negative. CK negative. EKG: Indication was jaw pain. Shows normal sinus rhythm with a rate of 71bpm, normal intervals, no ST elevation or depression, no ectopy, appears relatively unchanged from previous EKG from earlier today by my interpretation. SUMMARY: I assumed care of this patient at 0930. Patient has persistent severe bilateral jaw and neck pain requiring multiple doses of IV narcotics (Dilaudid) without relief, and is now requiring nasal cannula O2. I do not feel this patient can be safely discharged at this time. Overnight, the patient had workup that showed fairly normal labs including a negative troponin, no leukocytosis, negative mono, and negative respiratory biofire. EKG was unchanged from previous. CTA chest was negative for PE, CT soft tissue neck showed prominent cervical lymph nodes without evidence of mass or lesion. She received IV Decadron and 2g IV Rocephin. She does complain to me of numbness and tingling in her left cheek, lips, and jaw as well as a generalized headache which have been ongoing since last night. Repeat labs including CBC, CMP, CK and troponin were ordered. Repeat EKG done and appears unchanged. On exam, the patient does appear to have severe muscle spasm in the bilateral jaw and bilateral anterior neck. I did give the patient IV Toradol 15 mg, 1g IV Tylenol and 2.5 mg IV Valium. Will hold off on additional narcotics for now. Patient's home medication list reviewed by the ED pharmacist and there were no current medications concerning for causing severe muscle spasm or torticollis. MR studies considered, though the patient does have an implanted spine stimulator, and this will require special consideration if MR is to be done. Given the patient's persistent severe pain with several doses of IV narcotics and O2 requirement, I did feel the patient warranted admission for further evaluation and monitoring. [facility], who agreed to evaluate the patient for admission. The patient was discussed with Dr. Berrios, ED attending, who also evaluated the patient and agrees with my assessment, plan, and disposition. The chart was completed utilizing [employer] Speech voice recognition software. Grammatical errors, random word insertions, pronoun errors, and incomplete sentences are an occasional consequence of this system due to software limitations, ambient noise, and hardware issues. Any formal questions or concerns about the content, text, or information contained within the body of this dictation should be directly addressed to the nurse practitioner for clarification.
[2024-05-07] MEDS: diazePAM 5 MG/ML 10ML VIAL IV STA (10:29)
[2024-05-07 10:34] LABS: Basophils # (auto) 0.02 K/uL (0.00-0.20); Basophils % (auto) 0.3 %; Hematocrit (blood only) 37.4 % (37.0-47.0); Hemoglobin 12.4 g/dl (12.0-16.0); Immature Granulocytes # (auto) 0.04 K/uL (0.01-0.20); Immature Granulocytes % (auto) 0.6 %; Lymphocytes # (auto) 1.23 K/uL (1.20-3.40); Lymphocytes % (auto) 18.9 %; Mean Corpuscular Hemoglobin 28.1 pg (25.0-34.0); Mean Corpuscular Hgb Conc 33.2 g/dL (32.0-36.0); Mean Corpuscular Volume 84.8 fL (80.0-100.0); Mean Platelet Volume 9.3 fL (9.4-12.4); Monocytes # (auto) 0.11 K/uL (0.11-0.59); Monocytes % (auto) 1.7 %; Neutrophils # (auto) 5.11 K/uL (1.40-6.50); Neutrophils % (auto) 78.5 %; Platelet Count 263 K/uL (130-400); RDW Standard Deviation 39.5 fL (36.4-46.3); Red Blood Count 4.41 M/uL (4.20-5.40); White Blood Count 6.51 K/ul (4.8-10.8)
[2024-05-07 10:40] LABS: Albumin Globulin Ratio 1.3 (0.9-2); Albumin Level 4.2 gm/dl (3.4-5.0); BUN Creatinine Ratio 11.6 (10-20); Bilirubin,Total 0.5 mg/dl (0.2-1.0); Calcium 9.1 mg/dl (8.6-10.3); Creatinine Clr Calc Pharmacy 88.3 ml/min; Est GFR (African American) 83.8 ml/min; Est GFR (Non-African American) 72.3 ml/min; Globulin 3.2 gm/dl (2.5-4.0); Potassium 4.1 mmol/L (3.5-5.1); Total Protein 7.4 gm/dl (6.0-8.3)
[2024-05-07 10:47] LABS: Troponin I High Sensitivity 3.4 pg/ml (0-14)
--- NOTE | 2024-05-07 11:12 | History & Physical Report ---
Date of Service May 07, 2024 Assessment & Plan (1) Cervical lymphadenopathy: (2) Acute respiratory failure with hypoxia: (3) H/O cervical spine surgery: (4) Atypical chest pain: Plan: Acute neck pain bilaterally Suspect TMJ involvement causing majority of pain Acute respiratory failure with hypoxia secondary to narcotic administration in the ER Hypertension in this acute setting of pain -Admit to med telemetry -Overnight in the ER received multiple doses of IV morphine, Dilaudid, 1 dose of Toradol, Valium, ceftriaxone and Decadron 10 mg IV with minimal relief, she is now acutely hypoxic with O2 sats dropping below 90% requiring 2 L which she has never needed previously, wean O2 as tolerated -Will continue with Solu-Medrol 40 mg Q12H, clonazepam 0.25 mg Q12H, toradol for antiinflammatory effects Q6H prn, and baclofen for muscle spasm Q12H -Consult oral maxillofacial surgeon for further recommendations -CT soft tissue neck reviewed showing cervical lymphadenopathy but no other acute findings. -CTA chest neg for PE with acute chest pain -CXR is negative -RVP is negative -Check ESR and CRP - IV hydralazine prn for BP control -EKG was reviewed and is negative, troponin x 2 was negative, unlikely that this is ACS, atypical chest pain is likely referred pain from her jaw DVT ppx: teds, scds, lovenox subq Lines: 1 PIV FEN/GI: Full liquid, advance as tolerated CODE: Full Dispo: From home, likely to remain in the hospital x 1-2 days A total of 77 minutes were spent with greater than 50% of that time face to face with the patient, personally reviewing all current laboratories, imaging studies, past medication reconciliation, outpatient chart review, and discussion with specialists to collaborate care for the patient with attending. Please see attending documentation for corrections and/or additions. History of Present Illness Chief Complaint: Bilateral jaw and neck pain Primary Care Provider: Tiny Brownlee, This is a 43-year-old female with PMHx of postlaminectomy syndrome of lumbar region, status post lumbar spine nerve stimulator, history of cervical spine surgery, GERD, fibromyalgia, who presents to the hospital last evening for complaints of worsening bilateral jaw and neck pain. night she and her went to a [employer] baseball game and states that she was yelling very loudly, woke up Wednesday morning with a hoarse voice but no other symptoms. Throughout the day she developed worsening severe jaw pain bilaterally, she also felt some numbness in the left side of her face and lip and left neck. She was having headache and was attempting to take Tylenol at home without relief. She then developed some sharp chest pain at home radiation into the left underarm. Pt has issues closing her jaw and has not been able to chew due to pain. Denies any other areas of pain in the body. She does note about 2 weeks ago had a brief episode of jaw pain but it had resolved without intervention. Overnight the patient was tested with a ultrasound soft tissue neck which is negative for edema, CTA of the chest is negative, EKG is negative, troponin x 2 is negative. She has had intermittently fluctuating elevated blood pressures as high as 208/115 at the worst overnight. She has received multiple doses of IV Dilaudid, Decadron 10 mg IV, Rocephin x 2 g, Toradol and most recently 2.5 Valium as patient reported that her pain was still not improved this morning in the ER. Of note she is now requiring 2 L of oxygen to maintain her sats, and at baseline does not require any supplemental O2. Allergies Allergy/AdvReac Type Severity Reaction Status Date / Time tramadol AdvReac Mild "Did not Verified 11/05/23 08:15 help" with pain Home Medications Medication Instructions Recorded Confirmed Type omeprazole 40 mg capsule,delayed 40 mg PO BID 04/25/20 05/07/24 History release Medical Marijuana 1 dose PO HS sleep 05/16/21 11/12/23 History duloxetine 60 mg capsule,delayed 60 mg PO QAM 02/18/22 05/07/24 History release bupropion HCl 300 mg 24 hr tablet, 300 mg PO QAM 05/22/23 05/07/24 History extended release duloxetine 30 mg capsule,delayed 30 mg PO QAM 05/22/23 05/07/24 History release sumatriptan succinate 50 mg tablet 100 mg PO UD PRN migraines 05/22/23 05/07/24 History valacyclovir 1 gram tablet 2,000 mg PO Q12H PRN flare 05/22/23 05/07/24 History acetaminophen 500 mg tablet 1,000 mg (2 x 500 mg) PO Q8H #60 05/25/23 05/07/24 Rx (Tylenol Extra Strength) tabs loratadine 10 mg tablet (Claritin) 10 mg PO DAILY 05/07/24 05/07/24 History Past Med/Surg History Problem List Numbness and tingling of left side of face (Acute) Acute neck pain (Acute) Jaw pain (Acute) Acute respiratory failure with hypoxia Chest pain (Acute) Cervical lymphadenopathy (Acute) Paresthesia (Acute) Status post surgery (Acute) Acute left flank pain (Acute) Postlaminectomy syndrome of lumbar region Chest pain (Acute) Postoperative pain (Acute) Atypical chest pain H/O cervical spine surgery (Acute) Acute medial meniscus tear of right knee DDD (degenerative disc disease), lumbar Chronic maxillary sinusitis Sinus drainage Oral fistula Encounter for pre-operative examination Preop general physical exam Acute sinusitis with symptoms greater than 10 days Acute sinusitis treated with antibiotics in the past 60 days Oral fistula Chronic maxillary sinusitis Back problem Arthritis Failure of outpatient treatment (Acute) Cellulitis of neck (Acute) GERD (gastroesophageal reflux disease) H/O: hysterectomy Chronic back pain STENOSIS Depression Anxiety History of pancreatitis (Chronic) Esophageal spasm (Chronic) Pelvic pain (Chronic) Acute exacerbation of chronic low back pain (Chronic) Diarrhea (Acute) Substernal chest pain (Chronic) Elevated liver enzymes Cholecystitis, acute Nausea, vomiting, and diarrhea Shortness of breath Chest pain Palpitations (Acute) Temporomandibular joint disorder (Chronic 05/21/13) Migraine Fibromyalgia Degenerative disc disease Lumbar GERD (gastroesophageal reflux disease) controlled, stable per pt History of cholecystectomy Hx of shoulder surgery Right History of knee surgery Left knee x2 (open + arthroscopic, 1997) Medical History Refusal of blood transfusions as patient is Orthodoxy Hx of chest pain 05/2023, [place], ~1 week post-op from cervical spine sx.; no cardiac findings, "thought to be from post-op pain, no signs of pulmonary embolism either" Spinal stenosis Arthritis History of skin cancer removed Anxiety and depression Pulmonary embolism 2015- ? r/t control, was on blood thinner for short period of time Surgical History Hx of cervical spine surgery ~05/2023 History of sinus surgery Closure of Large Oral Sinus Opening, Left Sinus [place] (2020, [place]) H/O exploratory laparotomy History of tooth extraction History of esophagogastroduodenoscopy (EGD) History of colonoscopy Family History Grandfather Family history of diabetes mellitus Grandmother Family history of diabetes mellitus Grandmother Family hx of colon cancer Grandmother (Maternal) Diabetes Colorectal cancer Father Heart disease Mother Hypertension Uncle Stroke Other Cancer Gall bladder disease Lung disease No family history of adverse response to anesthesia Social History Smoking Status: Never smoker Second Hand Exposure: No; Do You Dip or Chew Tobacco: No; Hx Alcohol Use: Yes Alcohol type: wine Alcohol Intake Frequency: Monthly or Less Hx Substance Use: Yes Last Used Substance: Hours (ago) Last Used Substance Other:: Uses tincture under tongue nightly for sleep. Substance Use Type Other:: Medical Marijuana Card. Preferred Language: Ethiopian Communication Ability: Effective Visual Impairment: No Limitations Pit Inspector Required: No Beliefs That Will Affect Care: Advent Advent Beliefs: Orthodoxy. 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 No sore throat. Feels neck is swollen as well. + tinnitus bilaterally Respiratory: No cough, sputum, dyspnea at rest or on exertion Cardiovascular: No current chest pain, tightness or palpitations Abdomen: No pain, nausea, vomiting, diarrhea or constipation Musculoskeletal: No joint pain, calf pain, swelling Neurologic: No weakness, + episode of face numbness/tingling as per HPI now resolved, or balance problems Psychiatric: No anxiety or depression Skin: No rash or itch Physical Exam Physical Exam: General: awake, alert, no apparent distress, white female Head: Normocephalic, atraumatic ENT: PERRL, EOMI, no pharyngeal exudate, mucous membranes moist, + tenderness with TMJ palpation. Significant difficulty with moving her neck in all directions, + appears swollen in neck bilaterally and slightly tender with palpation Chest: Clear to auscultation, on room air, no adventitious breath sounds Cardiac: Regular rate and rhythm, no murmur, no JVD, normal peripheral pulses, good capillary refill Abdominal: NABS x 4 quadrants, soft, nondistended, nontender to palpation, no rebound or guarding Extremities: Normal inspection, no peripheral edema or erythema, calfs nontender to palpation Psych: Normal mood and affect Neuro: AAO x 3, strength intact bilaterally and rated 5/5, no motor deficits, speech is clear, no peripheral sensory deficits Results & Data Results & Data Vital Signs (Past 12 Hours) Vital Signs Temp Pulse Pulse Resp BP BP Pulse Ox 05/07/24 10:00 80 15 124/86 95 05/07/24 06:00 79 18 161/91 H 97 05/07/24 05:24 82 05/07/24 04:00 83 12 175/114 H 98 05/07/24 02:00 99 H 21 174/120 H 94 05/07/24 01:30 95 H 18 172/111 H 95 05/07/24 01:21 97 H 21 94 05/07/24 01:18 98 H 05/07/24 01:10 102 H 27 H 208/115 H 96 05/07/24 01:03 37.2 C 100 H 20 159/99 H 96 O2 Del Method O2 Flow Rate 05/07/24 10:00 Room Air 05/07/24 06:00 05/07/24 05:24 05/07/24 04:00 Nasal Cannula 2 05/07/24 02:00 Room Air 05/07/24 01:30 Room Air 05/07/24 01:21 Room Air 05/07/24 01:18 05/07/24 01:10 Room Air 05/07/24 01:03 Room Air Laboratory Results 05/07/24 05/07/24 05/07/24 10:09 04:04 03:00 WBC 6.51 RBC 4.41 Hgb 12.4 Hct 37.4 MCV 84.8 MCH 28.1 MCHC 33.2 RDW Std Deviation 39.5 RDW Coeff of Rm 13.0 Plt Count 263 MPV 9.3 L Immature Gran % (Auto) 0.6 Neut % (Auto) 78.5 Lymph % (Auto) 18.9 Mccone % (Auto) 1.7 Eos % (Auto) 0.0 Baso % (Auto) 0.3 Neut # (Auto) 5.11 Lymph # (Auto) 1.23 Mccone # (Auto) 0.11 Eos # (Auto) 0.00 Baso # (Auto) 0.02 Immature Gran # (Auto) 0.04 Sodium 135 L Potassium 4.1 Chloride 104 Carbon Dioxide 24 Anion Gap 7 BUN 11 Creatinine 0.95 Est Cr Clr Drug Dosing 88.3 Est GFR ( Amer) 83.8 Est GFR (Non-Af Amer) 72.3 BUN/Creatinine Ratio 11.6 Glucose 157 H Calcium 9.1 Magnesium Total Bilirubin 0.5 AST 29 ALT 42 Alkaline Phosphatase 106 H Troponin I High Sens 3.4 6.3 Total Protein 7.4 Albumin 4.2 Globulin 3.2 Albumin/Globulin Ratio 1.3 Amylase Lipase TSH HCG, Qual Adenovirus (PCR) Not Detected B. pertussis DNA (PCR) Not Detected B.parapertussis DNA PCR Not Detected C. pneumoniae DNA (PCR) Not Detected Coronavirus OC43 (PCR) Not Detected Coronavirus HKU1 (PCR) Not Detected Coronavirus 229E (PCR) Not Detected SARS-CoV-2 (PCR) Not Detected Coronavirus NL63 (PCR) Not Detected Monoscreen Human Metapneumovir PCR Not Detected Influenza Type A (PCR) Not Detected Influenza Type B (PCR) Not Detected M. pneumoniae (PCR) Not Detected Parainfluenza 1 (PCR) Not Detected Parainfluenza 2 (PCR) Not Detected Parainfluenza 3 (PCR) Not Detected Parainfluenza 4 (PCR) Not Detected RSV (PCR) Not Detected Entero/Rhino (PCR) Not Detected 05/07/24 00:20 WBC 8.07 RBC 4.68 Hgb 13.2 Hct 39.8 MCV 85.0 MCH 28.2 MCHC 33.2 RDW Std Deviation 38.9 RDW Coeff of Rm 13.0 Plt Count 264 MPV 8.9 L Immature Gran % (Auto) 0.6 Neut % (Auto) 65.4 Lymph % (Auto) 21.7 Mccone % (Auto) 9.7 Eos % (Auto) 1.9 Baso % (Auto) 0.7 Neut # (Auto) 5.28 Lymph # (Auto) 1.75 Mccone # (Auto) 0.78 H Eos # (Auto) 0.15 Baso # (Auto) 0.06 Immature Gran # (Auto) 0.05 Sodium 133 L Potassium 3.8 Chloride 100 Carbon Dioxide 25 Anion Gap 8 BUN 14 Creatinine 0.92 Est Cr Clr Drug Dosing 91.2 Est GFR ( Amer) 87.2 Est GFR (Non-Af Amer) 75.2 BUN/Creatinine Ratio 15.2 Glucose 96 Calcium 9.5 Magnesium 2.0 Total Bilirubin 0.8 AST 34 ALT 46 Alkaline Phosphatase 114 H Troponin I High Sens 6.3 Total Protein 7.7 Albumin 4.5 Globulin 3.2 Albumin/Globulin Ratio 1.4 Amylase 38 Lipase 24 TSH 4.422 HCG, Qual Negative Adenovirus (PCR) B. pertussis DNA (PCR) B.parapertussis DNA PCR C. pneumoniae DNA (PCR) Coronavirus OC43 (PCR) Coronavirus HKU1 (PCR) Coronavirus 229E (PCR) SARS-CoV-2 (PCR) Coronavirus NL63 (PCR) Monoscreen Negative Human Metapneumovir PCR Influenza Type A (PCR) Influenza Type B (PCR) M. pneumoniae (PCR) Parainfluenza 1 (PCR) Parainfluenza 2 (PCR) Parainfluenza 3 (PCR) Parainfluenza 4 (PCR) RSV (PCR) Entero/Rhino (PCR) Diagnostic Findings Chest CTA 05/07/24 01:21 Exam(s): CTA CHEST IV Amt: 118 cc opti 320 EXAM: CT Angiography Chest With Intravenous Contrast CLINICAL HISTORY: Reason for exam: PE/SVC syndrome. TECHNIQUE: Axial computed tomographic angiography images of the chest with intravenous contrast. CTDI is 28.05 mGy and DLP is 1559.3 mGy-cm. Automated exposure control was utilized for the study. A dose lowering technique was utilized adhering to the principles of ALARA. MIP reconstructed images were created and reviewed. COMPARISON: No relevant prior studies available. FINDINGS: Pulmonary arteries: Unremarkable. No pulmonary embolism. Aorta: No acute findings. No thoracic aortic aneurysm. Superior vena cava: Unremarkable as visualized. No occlusion of the superior vena cava. Lungs: Unremarkable. No mass. No consolidation. Pleural space: Unremarkable. No significant effusion. No pneumothorax. Heart: Unremarkable. No cardiomegaly. No significant pericardial effusion. No evidence of RV dysfunction. Bones/joints: No acute fracture. No dislocation. Soft tissues: Unremarkable. Lymph nodes: Unremarkable. No enlarged lymph nodes. Tubes, lines and devices: Delores stimulator leads. IMPRESSION: No occlusion of the superior vena cava. Electronically signed by: Jack Smith MD 05/07/24 02:46 AM Chest X-Ray 05/07/24 01:21 SINGLE VIEW CHEST CLINICAL HISTORY: Atypical chest pain. FINDINGS: An AP, portable, upright chest radiograph is compared to chest x-ray and chest CT dated 05/22/2023. The examination was repeated due to severe artifact on the initial image. The cardiomediastinal silhouette is unremarkable. The lungs and pleural spaces are clear. No pneumothorax is seen. The bony thorax is grossly intact. Postsurgical change is noted in the lower cervical spine. An intrathecal lead projects over the thoracic spine. IMPRESSION: No active disease in the chest. ACT 112: Negative or not required by law. Electronically signed by: Robinson Carpenter M.D. 05/07/2024 8:59 AM Soft Tissue Neck CT 05/07/24 01:21 Exam(s): CT NECK With Contrast IV Amt: 118 cc opti 320 EXAM: CT Neck With Intravenous Contrast CLINICAL HISTORY: Reason for exam: B jaw/neck pain/swelling, ? infx/obstruction/mass. TECHNIQUE: Axial computed tomography images of the neck with intravenous contrast. CTDI is 28.05 mGy and DLP is 1559.3 mGy-cm. Automated exposure control was utilized for the study. A dose lowering technique was utilized adhering to the principles of ALARA. CONTRAST: Patient received 118 cc opti 320 of IV contrast COMPARISON: No relevant prior studies available. FINDINGS: Oropharynx: Unremarkable. No significant tonsillar enlargement. No peritonsillar abscess. Hypopharynx: Unremarkable. Larynx: Unremarkable. Normal epiglottis. Trachea: Unremarkable. Retropharyngeal space: Unremarkable. Submandibular/parotid glands: Unremarkable. Glands are normal in size. Thyroid: Unremarkable. No enlarged or calcified nodules. Bones/joints: No acute fracture. Status post disc replacement at C5-6. Soft tissues: Unremarkable. Vasculature: Tortuous and ectatic external jugular vein along the anterior cervical soft tissues and right submandibular space. Lymph nodes: Prominent cervical lymph nodes with prominent lymph node in the left ascending tubular space. Lung apices: Unremarkable as visualized. IMPRESSION: Prominent cervical lymph nodes. No evidence of mass or lesion. Ectatic and tortuous external jugular vein overlying the anterior cervical soft tissues and right submandibular space Electronically signed by: Zohreh Floyd MD 05/07/24 03:47 AM ECG Additional Comments: Reviewed personally, No ST wave inversions or signs of ischemia Code Status & VTE Plan Code Status Full code - discussed with pt at bedside Supervising Physician Co-Signing Physician Notes Patient seen and examined independently. Patient presented with severe bilateral jaw pain radiating down the face. She reports difficulty opening her mouth. The symptoms were gradual in onset. Despite multiple medications; her pain continues to be persistent. So, patient was referred for admission. On examination,Swelling present in bilateral posterior cheek. Unable to open her mouth fully. Tenderness present on bilateral TMJ joint. No overlying redness. Started on muscle relaxant with cyclobenzaprine, clonazepam. Will obtain MRI of the TMJ joint. Will appreciate oral surgery's input. Will continue on empiric antibiotic Full liquid diet I have reviewed the advanced practitioner's documentation, and I agree with, and take responsibility for the plan of care I spent a total of 40 minutes coordinating, documenting, and providing care for this patient excluding time spent in the performance of separately billed services. All of the aforementioned completed while collaborating with the assigned advanced practitioner for a full treatment plan
[2024-05-07] MEDS ORDERED: MoRPHine SULFATE 4 MG/ML 1 ML CARP\\VIAL IV PRN (11:49)
[2024-05-07] MEDS: ACETAMINOPHEN 1,000 MG/100 ML VIAL IV STA (12:20)
[2024-05-07] MEDS: CYCLOBENZAPRINE HCL 10 MG TAB PO SCH ×2 (12:21→12:33)
[2024-05-07] MEDS: MoRPHine SULFATE 4 MG/ML 1 ML CARP\\VIAL IV PRN (12:27)
[2024-05-07 12:29] LABS: C Reactive Protein 2.66 mg/dl (0-0.5)
[2024-05-07] MEDS: methylPREDNISolone 40 MG in SYRINGE 0 ML IV SCH (13:17)
[2024-05-07] MEDS: ONDANSETRON INJ 2 MG/ML 2 ML VIAL IV PRN (15:37)
[2024-05-07] MEDS: MoRPHine SULFATE 2 MG/ML CARP IV STA (15:52)
[2024-05-07] MEDS ORDERED: MoRPHine SULFATE 4 MG/ML 1 ML CARP\\VIAL IV SCH (16:00)
[2024-05-07] MEDS ORDERED: hydrALAZINE HCL 20 MG/ML VIAL IV PRN (17:59)
--- NOTE | 2024-05-07 18:31 | Emergency Department Note ---
ED Visit Note I was consulted by the Advanced Practice Provider, Angeles Redmond NP. Patient was previously seen by management rep. I refer you to the EMR for further details. Patient received multiple doses of IV narcotics and was still very uncomfortable. She was requiring supplemental oxygen. Patient was evaluated. She is moderately hypertensive despite multiple doses of analgesia. The exact etiology of her symptoms is not obvious. She does have a lot of muscle spasm anteriorly in the sternocleidomastoid muscles. We will trial Toradol and Valium. Discussed admission for further management and patient and were in agreement. So I did consult with the [facility] service and the patient was evaluated in the ER for further management .
[2024-05-07] MEDS: KETOROLAC TROMETHAMINE 15 MG/ML VIAL IV SCH (18:35)
[2024-05-07] MEDS: MoRPHine SULFATE 4 MG/ML 1 ML CARP\\VIAL IV SCH (18:36)
[2024-05-07] MEDS: DULoxetine HCL 60 MG CAP PO SCH (19:14)
[2024-05-07] MEDS: DULoxetine HCL 30 MG CAP PO SCH (19:14)
[2024-05-07] MEDS: buPROPion XL 300 MG TABCR PO SCH (19:15)
[2024-05-07] MEDS: LORATADINE 10 MG TAB PO SCH (19:15)
--- NOTE | 2024-05-07 20:12 | Magnetic Resonance Report ---
MRI OF THE TEMPOROMANDIBULAR JOINTS CLINICAL HISTORY: Bilateral TMJ pain. COMPARISON STUDY: CT scan of the neck dated 05/07/2024. TECHNIQUE: MRI of the temporomandibular joints was performed utilizing various T1 and T2-weighted matthew ghted sagittal oblique sequences with the mouth open and closed. T2 localizer sequence was also perfo rmed. IV contrast was not measured for this examination. The examination is degraded by motion artifa ct. FINDINGS: Right temporomandibular joint: The articular disc is normally positioned on the closed mouth images. This remains normally positioned on the open-mouth images. There is significantly diminished anterior translation of the mandibular condyle. There may be tearing of the articular disc. This is not well assessed due to motion artifact. Left temporomandibular joint: The articular disc is normally positioned on the closed mouth imaging. This remains normally positioned on the open-mouth imaging. There is diminished anterior translation of the mandibular condyle. There may be tearing of the articular disc. This is not well assessed due to motion artifact. The visualized brain parenchyma is normal as imaged. Normal marrow signal intensity is preserved thro ughout the visualized bony structures. IMPRESSION: 1. The articular disc is normally positioned bilaterally on the closed mouth images, and maintains no rmal position on the attempted open mouth imaging. 2. There is significantly diminished anterior translation of the mandibular condyles bilaterally on t he open mouth images. 3. There may be tearing of the articular discs. This is not well assessed due to motion artifact. ACT 112: Negative or not required by law. Electronically signed by: Robinson Carpenter M.D. 05/07/2024 8:10 PM
[2024-05-07] MEDS: clonazePAM 0.25 MG OD TAB PO SCH (21:33)
[2024-05-07] MEDS: PANTOprazole 40 MG TAB PO SCH (21:34)
[2024-05-08] MEDS: cefTRIAXone SODIUM 2,000 MG/50 ML BAG IV SCH (03:35)
--- NOTE | 2024-05-08 07:49 | Electrocardiogram Report ---
Test Reason : Blood Pressure : / mmHG Vent. Rate : 071 BPM Atrial Rate : 071 BPM P-R Int : 146 ms QRS Dur : 092 ms QT Int : 402 ms P-R-T Axes : 051 010 008 degrees QTc Int : 436 ms Normal sinus rhythm Poor R wave progression, consider anterior [place] vs. lead placement vs. LVH Nonspecific T wave abnormality Anterior leads Abnormal ECG When compared with ECG of 07-MAY-2024 01:33, No significant change was found Confirmed by Emilio Tom ([id number]) on 05/08/2024 7:48:47 AM Referred By: REFERRED SELF Confirmed By:Emilio Tom
--- NOTE | 2024-05-08 08:03 | Hospitalist Progress Note ---
Date of Service May 08, 2024 Assessment & Plan (1) Cervical lymphadenopathy: (2) Acute respiratory failure with hypoxia: (3) H/O cervical spine surgery: (4) Atypical chest pain: Plan: Acute neck pain bilaterally myofacian muscle tenderness: Admitted on med telemetry Desaturated in ED with numerous narcotics; resolved Continue with Solu-Medrol 40 mg Q12H, clonazepam 0.25 mg Q12H, toradol for antiinflammatory effects Q6H scheduled, and baclofen for muscle spasm Q12H Morphine Q3 PRN -CT soft tissue neck reviewed showing cervical lymphadenopathy but no other acute findings. No abscess -CTA chest neg for PE -CXR neg -TMJ MRI 05/07: - significantly diminished anterior translation of the mandibular condyles bilaterally on the open mouth images. -There may be tearing of the articular discs. This is not well assessed due to motion artifact. CRP 2.6; trend Will check Lyme serology Full liquid, advance as tolerated Dr. Rome saw patient today; appreciate recommendations: suggests patient has full blow myofacial muscle issues with tenderness: Consider PT; address tight SCM + masseter muscles; order placed Soft non-chew diet x1 month Will start Baclofen 5 mg PO TID; Will start Motrin 600 mg Q8 scheduled; will discontinue Ketorolac Alternate heat/cold packs Discontinue IV steroids If no improvement, consider pain management consult for possibility of TPI HTN: Likely secondary to pain. Does not take any scheduled anti-hypertensives IV hydralazine prn for BP control normotensive today Disposition: PCP: Dr. Brownlee Code Status: Full code VTE Prophylaxis: Lovenox SQ From home, likely to remain in the hospital another day or so. A total of 82 minutes were spent with greater than 50% of that time face to face with the patient, personally reviewing all current laboratories, imaging studies, past medication reconciliation, outpatient chart review, and discussion with specialists to collaborate care for the patient with attending. Please see attending documentation for corrections and/or additions. Admission and Anticipated Discharge Date Admission Date: May 07, 2024 Supervising Physician Co-Signing Physician Notes Patient seen and examined independently. Discussed with above provider. Patient reports slight improvement in the pain overall; able to open her mouth slightly Evaluated by oral surgery; symptoms are thought secondary to myofascial muscle issues. Currently on baclofen, heat/cold therapy, NSAIDs Continue to monitor for symptom control I have reviewed the advanced practitioner's documentation, and I agree with, and take responsibility for the plan of care I spent a total of 20 minutes coordinating, documenting, and providing care for this patient excluding time spent in the performance of separately billed services. All of the aforementioned completed while collaborating with the assigned advanced practitioner for a full treatment plan Subjective Pt rested well overnight Continues to have mandibular and TMJ tenderness that extends to her anterior chest wall with (+) supraclavicular tenderness No fever or chills; no SOB, chest pain/palpitations. (-) dysphgia Tolerating clear liquid well. feels hot; just received steroids Reports she has had a history of fibromyalgia and had a tick bite a few years ago that caused 'skin issues' with her flesh sloughing off on her neck Review of Systems Review of Systems: Neuro: (-) Falls, trauma, slurred speech HEENT: (-) RAYMUNDO, dizziness, dysphagia, visual or auditory changes (+) tenderness of TMJ, submandibular and anterior chest. CV: (-) CP, palpitations, swelling Resp: (-) SOB GI: (-) appetite changes, N/V/D, bowel changes : (-) urinary changes Skin: (-) rashes (-) evidence of tick bite Psych: (-) anxiety, depression Physical Exam Physical Exam: Neuro: AAOx4, PERRLA, no aphagia, memory changes, CNII-XII grossly intact HEENT: head normocephalic, moist mucus membranes. Continues to have mandibular and TMJ tenderness that extends to her anterior chest wall with (+) supraclavicular tenderness. (-) lymphadenopathy CV: S1/S2, (-) M/G/R, (-) edema, cap refill < 3 seconds Resp: Lungs CTA in all beyer. On RA GI: Abdomen S/NT/ND, Ax4 bowel sounds, (-) CVA tenderness Musculoskeletal: 5/5 B/L UE strength, 5/5 B/L LE strength. No gait disturbance Skin: (-) rashes , (-) erythema. Psych: euthymic mood Results & Data Results & Data Vital Signs (Past 12 Hours) Vital Signs Temp Pulse Pulse Pulse Resp BP Pulse Ox 05/08/24 07:38 36.4 C L 94 H 18 142/75 H 96 05/08/24 07:11 74 05/08/24 03:43 36.7 C 93 H 18 155/86 H 95 05/07/24 23:21 36.7 C 66 18 147/88 H 99 05/07/24 22:02 74 O2 Del Method 05/08/24 07:38 Room Air 05/08/24 07:11 05/08/24 03:43 Room Air 05/07/24 23:21 Room Air 05/07/24 22:02 Laboratory Results Short CBC 05/07/24 05/08/24 Range/Units 10:09 07:57 WBC 6.51 12.71 H (4.8-10.8) K/ul Hgb 12.4 11.5 L (12.0-16.0) g/dl Hct 37.4 35.9 L (37.0-47.0) % Plt Count 263 249 (130-400) K/uL BMP 05/07/24 05/08/24 10:09 07:57 Sodium 135 L 137 Potassium 4.1 4.5 Chloride 104 105 Carbon Dioxide 24 28 BUN 11 14 Creatinine 0.95 0.93 Glucose 157 H 180 H Calcium 9.1 8.8 Cardiac Enzymes 05/07/24 Range/Units 10:09 Total Creatine Kinase 32 (26-192) U/L Liver Function 05/07/24 Range/Units 10:09 Total Bilirubin 0.5 (0.2-1.0) mg/dl AST 29 (13-39) U/L ALT 42 (7-52) U/L Alkaline Phosphatase 106 H (34-104) U/L Albumin 4.2 (3.4-5.0) gm/dl
[2024-05-08 08:21] LABS: Hematocrit (blood only) 35.9 % (37.0-47.0); Hemoglobin 11.5 g/dl (12.0-16.0); Mean Corpuscular Hemoglobin 28.1 pg (25.0-34.0); Mean Corpuscular Volume 87.8 fL (80.0-100.0); Mean Platelet Volume 9.2 fL (9.4-12.4); Platelet Count 249 K/uL (130-400); RDW Coefficient of Variation 13.1 % (11.5-14.5); RDW Standard Deviation 41.7 fL (36.4-46.3); Red Blood Count 4.09 M/uL (4.20-5.40); White Blood Count 12.71 K/ul (4.8-10.8)
[2024-05-08 08:40] LABS: BUN Creatinine Ratio 15.1 (10-20); Calcium 8.8 mg/dl (8.6-10.3); Est GFR (Non-African American) 74.2 ml/min; Potassium 4.5 mmol/L (3.5-5.1)
[2024-05-08] MEDS: ENOXAPARIN INJ 40 MG/0.4 ML SYR SQ SCH (09:27)
[2024-05-08] MEDS: MoRPHine SULFATE 4 MG/ML 1 ML CARP\\VIAL IV PRN (09:28)
--- NOTE | 2024-05-08 11:53 | Oral/Maxillofacial Consult ---
Date of Consultation May 08, 2024 Assessment & Plan (1) Acute neck pain: (2) Jaw pain: (3) Numbness and tingling of left side of face: (4) Myofascial muscle pain: (5) Hypertrophy of both masseter muscles: (6) Masseter muscle spasm: (7) Acute muscle stiffness of neck: History of Present Illness Attending Physician: Usman Mathews MD History of Present Illness TMJ exam The patient gives a history of myofacial pain and discomfort, limited opening and pain upon function, Symptoms include-pain on function, change in bite,jaw, neck swelling, limited jaw movement, neck pain, stiffness, jaw/neck stiffness and head pain. No locking or noise w/in the TMJ swelling. HPI: This is a 43-year-old female who presented to the emergency with complaint of bilateral jaw and neck pain radiating into the left shoulder and chest. At the time I evaluated the patient, she has persistent severe bilateral jaw and neck pain, worse on the left and also reports generalized headache and left facial numbness/tingling that involves her cheek, lips, and chin only on the left. She reports having the numbness and tingling since last night prior to coming to ED. She reports that she has difficulty opening and closing her jaw because of severe pain, and feels that she cannot fully close her jaw. She denies any fevers or chills. Patient's also provides some history, notes that night they went to a [employer] game and they were cheering and screaming loudly a lot. The next morning she woke up and her voice was hoarse, but no other symptoms. Yesterday (Wednesday) morning she woke up feeling unwell, complaining of headaches, bilateral jaw pain and neck pain. She has had persistent voice hoarseness. She tried ice and Tylenol without improvement. This is a classic case of myofacial TMJ, given the presenting symptoms, tight muscles, fast onset and not able to close her back teeth ( this is caused by retrodiscal swelling) To compensate the patient will clench and cause more trauma to the muscles--hence an acute myofacial pain syndrome. Can take 2-3 weeks weeks with soft diet and facial relaxation to improve. I reviewed the CT and MRI I firmly believe that is muscle in nature and nothing to do with recent cervical surgery or internal issues with the TMJ History of trauma--None Past TMJ treatment---none -no TMJ symptoms until 3-4 days ago The ROM is ----30 tight but not restricted as seen with a closed locking Pain is localized to the ----masseter areas, sternocleidomastoid, digastrics region, pain is muscle in nature There is an opening Pop at--no pop or locking I discussed the anatomy of the TMJ disc, condyle and the function. Reviewed the MRI and CT scan I my opinion Telma has full blow myofacial muscle issues--possible caused by clenching, bruxism, stress and family tension with her mother who is in the hospital after a fall. The cheering at the baseball game is also a contributing factor. The muscles of mastication are very tender and enlarged--the masseter and SCM are the most involved and spasmatic in nature. Discussed non surgical treatment such as Medication (muscle relaxation) , use of ice, heat, massage, soft diet, consideration for PT, appliance use if no response with diet, heat and massage in 10-14 days I suggested Telma needs to decompress and try to relax. The use of Motrin 400- 600 mg q 6-8 hrs., moist heat, massage, muscle relaxers. Consideration for Physical therapy to address the tight SCM and masseter muscles is of utmost importance. Also suggested warm moist heat bilateral for 30 minutes 2 x a day and before be d. Soft non-chew diet x 1 month Understand need to reduce stress in relationship,life, job, home. OK for discharge Muscle relaxation medication Heat/ cold therapy Consider referral for PT masseter and SCM area Consideration for stress management -- medication or other options If after 2 weeks no improvement is noted she has my card to call for further evaluation. Please let me know if you have any question. In my opinion Telma can be discharged today Allergies Allergy/AdvReac Type Severity Reaction Status Date / Time tramadol AdvReac Mild "Did not Verified 11/05/23 08:15 help" with pain Home Medications Medication Instructions Recorded Confirmed Type omeprazole 40 mg capsule,delayed 40 mg PO BID 04/25/20 05/07/24 History release Medical Marijuana 1 dose PO HS sleep 05/16/21 11/12/23 History duloxetine 60 mg capsule,delayed 60 mg PO QAM 02/18/22 05/07/24 History release bupropion HCl 300 mg 24 hr tablet, 300 mg PO QAM 05/22/23 05/07/24 History extended release duloxetine 30 mg capsule,delayed 30 mg PO QAM 05/22/23 05/07/24 History release sumatriptan succinate 50 mg tablet 100 mg PO UD PRN migraines 05/22/23 05/07/24 History valacyclovir 1 gram tablet 2,000 mg PO Q12H PRN flare 05/22/23 05/07/24 History acetaminophen 500 mg tablet 1,000 mg (2 x 500 mg) PO Q8H #60 05/25/23 05/07/24 Rx (Tylenol Extra Strength) tabs loratadine 10 mg tablet (Claritin) 10 mg PO DAILY 05/07/24 05/07/24 History Patient History Medical History Refusal of blood transfusions as patient is [employer] Hx of chest pain 05/2023, [place], ~1 week post-op from cervical spine sx.; no cardiac findings, "thought to be from post-op pain, no signs of pulmonary embolism either" Spinal stenosis Arthritis History of skin cancer removed Anxiety and depression Pulmonary embolism 2014- ? r/t control, was on blood thinner for short period of time Surgical History Hx of cervical spine surgery ~05/2023 History of sinus surgery Closure of Large Oral Sinus Opening, Left Sinus [place] (2020, [place]) H/O exploratory laparotomy History of tooth extraction History of esophagogastroduodenoscopy (EGD) History of colonoscopy Family History Grandfather Family history of diabetes mellitus Grandmother Family history of diabetes mellitus Grandmother Family hx of colon cancer Grandmother (Maternal) Diabetes Colorectal cancer Father Heart disease Mother Hypertension Uncle Stroke Other Cancer Gall bladder disease Lung disease No family history of adverse response to anesthesia Social History Smoking Status: Never smoker Second Hand Exposure: Yes (grandparents); Do You Dip or Chew Tobacco: No; Hx Alcohol Use: Yes Alcohol type: wine Alcohol Intake Frequency: Monthly or Less Hx Substance Use: No Preferred Language: Uzbek Communication Ability: Effective Visual Impairment: No Limitations House Moving Supervisor Required: No Beliefs That Will Affect Care: None Current Living Situation: Family Current Living Situation Comment: home with spouse and son current occupational status: employed 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 Other Information That Helps Us Care for You: No Feels Safe at Home: Yes Safety Concerns: Feels Safe At This Time Assistive Devices: None Results & Data Vital Signs (Past 12 Hours) Vital Signs Temp Pulse Pulse Pulse Resp BP Pulse Ox 05/08/24 10:56 36.8 C 97 H 18 132/71 94 05/08/24 07:38 36.4 C L 94 H 18 142/75 H 96 05/08/24 07:11 74 05/08/24 03:43 36.7 C 93 H 18 155/86 H 95 O2 Del Method 05/08/24 10:56 Room Air 05/08/24 07:38 Room Air 05/08/24 07:11 05/08/24 03:43 Room Air PG Care Time/CCT Total # of Minutes Spent Total Time Spent with Patient: Total time spent is greater than 50% in coordination of care (as documented) at patient's floor/unit and/or counseling patient: Coding Level of Care Code 47658 OFFICE CONSULT LVL Diagnoses Acute neck pain M54.2 Jaw pain R68.84 Numbness and tingling of left side of face R20.0; R20.2 Myofascial muscle pain M79.18 Hypertrophy of both masseter muscles M62.89 Masseter muscle spasm M62.838 Acute muscle stiffness of neck M43.6
[2024-05-08] MEDS: IBUPROFEN 600 MG TAB PO SCH (12:28)
[2024-05-08] MEDS: BACLOFEN 10 MG TAB PO SCH (13:10)
[2024-05-08 13:43] LABS: Lyme Screen Rflx Confirmation Positive (Negative)
[2024-05-08 14:17] LABS: Lyme Ab IgG 2nd Tier Confirm Negative (Negative); Lyme Ab IgM 2nd Tier Confirm Positive (Negative)
[2024-05-08] MEDS: DOCUSATE SODIUM 100 MG CAP PO SCH (22:31)
[2024-05-09] MEDS: oxyCODONE HCL IR 5 MG TAB (IMMEDIATE RELEASE) PO STA (00:41)
[2024-05-09 07:21] LABS: Hematocrit (blood only) 33.9 % (37.0-47.0); Hemoglobin 10.9 g/dl (12.0-16.0); Mean Corpuscular Hemoglobin 28.5 pg (25.0-34.0); Mean Corpuscular Hgb Conc 32.2 g/dL (32.0-36.0); Mean Corpuscular Volume 88.7 fL (80.0-100.0); Mean Platelet Volume 9.6 fL (9.4-12.4); Platelet Count 242 K/uL (130-400); RDW Coefficient of Variation 13.2 % (11.5-14.5); RDW Standard Deviation 42.7 fL (36.4-46.3); Red Blood Count 3.82 M/uL (4.20-5.40); White Blood Count 11.64 K/ul (4.8-10.8)
[2024-05-09 07:28] LABS: Calcium 8.2 mg/dl (8.6-10.3); Creatinine Clr Calc Pharmacy 84.6 ml/min; Est GFR (African American) 78.8 ml/min; Potassium 4.2 mmol/L (3.5-5.1)
[2024-05-09] MEDS: MoRPHine SULFATE 4 MG/ML 1 ML CARP\\VIAL IV PRN ×2 (08:58→14:33)
--- NOTE | 2024-05-09 10:52 | Hospitalist Progress Note ---
Date of Service May 09, 2024 Assessment & Plan (1) Lyme disease: (2) Polyarthritis: (3) Acute muscle stiffness of neck: (4) Cervical lymphadenopathy: (5) H/O cervical spine surgery: (6) Meningioma: Plan This is a 43-year-old female with PMHx of postlaminectomy syndrome of lumbar region, status post lumbar spine nerve stimulator, history of cervical spine surgery, GERD, fibromyalgia, who presents to the hospital last evening for complaints of worsening bilateral jaw and neck pain. Seen by Dr. Rome and tested positive for Lyme screen and IGM on 05/08. Lyme Disease: Polyarthritis: Acute muscle stiffness of neck: Acute On admission: -CT soft tissue neck reviewed showing cervical lymphadenopathy but no other acute findings. No abscess -CTA chest neg for PE, CXR neg -TMJ MRI 05/07: - significantly diminished anterior translation of the mandibular condyles bilaterally on the open mouth images. -There may be tearing of the articular discs. This is not well assessed due to motion artifact. CRP 2.6--> 1.76 today Mild leukocytosis; 11.64; suspect reactive. Will trend Lyme serology added on yesterday for evaluation due to patients history of fibromyalgia; (+) screen and Lyme IgM (+) Patient on Ceftriaxone; will continue for now as this does cover neuro involvement Infectious Disease consultation placed Given symptoms that include RAYMUNDO, tinnitus and neck stiffness, MRI brain w/wo con without evidence of leptomeningeal enchancement to suggest meningitis. Pending results consider LP Continue warm/cold compress Morphine IV Q4 PRN, Motrin and Baclofen for pain control Pain management consult placed Soft diet ordered x1 month Dr. Rome saw patient yesterday; appreciate recommendations: suggests patient has full blow myofacial muscle issues with tenderness: PT ordered to address tight SCM + masseter muscles HTN: Likely secondary to pain. Does not take any scheduled anti-hypertensives IV hydralazine prn for BP control normotensive today Meningioma: Chronic Brain MRI obtained to r/o meningitis. Incidental note is made a 13 mm meningioma. May be contributing factor to history of migranes. Follow up as outpatient. Disposition: PCP: Code Status: VTE Prophylaxis: Teds + SCDs for now I spent a total of 71 minutes coordinating, documenting, and providing care for this patient excluding time spent in the performance of separately billed services. All of the aforementioned completed while collaborating with the assigned attending physician for a full treatment plan. Please see their addendum for further details. Admission and Anticipated Discharge Date Admission Date: May 07, 2024 Supervising Physician Co-Signing Physician Notes Patient seen and examined independently. Discussed with the provider. Patient continues to have significant pain requiring multiple doses of IV medication. Lyme IgM was positive Patient currently on ceftriaxone MRI brain with and without contrast did not show any enhancement suggestive of meningitis. Found to have incidental 13 mm meningioma. Will need follow-up with PCP with MRI brain in 6 months. Discussed with patient. Will get infectious disease input regarding whether this is a atypical presentation of Lyme disease. Continue current medication. Pain management also consulted to see if any trigger point injection will help with pain control. I have reviewed the advanced practitioner's documentation, and I agree with, and take responsibility for the plan of care I spent a total of 20 minutes coordinating, documenting, and providing care for this patient excluding time spent in the performance of separately billed services. All of the aforementioned completed while collaborating with the assigned advanced practitioner for a full treatment plan Subjective Patient rested okay overnight Utilized 2 doses of IV morphine with minimal relief overnight Continues to have mandibular and TMJ tenderness extending into her anterior chest wall with positive supraclavicular tenderness Reports neck stiffness and headache. No fever or chills, flushed cheeks, no shortness of breath, no dysphagia denies chest pain Reports palpitations intermittently over the last 2 days Tolerating full liquid diet well No skin rash identified after discussion of positive Lyme serology IgM Review of Systems Review of Systems: Neuro: (-) Falls, trauma, slurred speech HEENT: (+) RAYMUNDO, (-) dizziness, dysphagia, visual or auditory changes (+) tenderness of TMJ, submandibular and anterior chest.(+) Tinnitus CV: (-) CP, palpitations, swelling Resp: (-) SOB GI: (-) appetite changes, N/V/D, bowel changes : (-) urinary changes Musculoskeletal: (+) joint tenderness with pain/movement (knees, ankles, finger s, elbows, wrists)(+) neuropathy right greater toe Skin: (-) rashes (-) evidence of tick bite (-) rash Psych: (-) anxiety, depression Physical Exam Physical Exam: Neuro: AAOx4, PERRLA, no aphagia, memory changes, CNII-XII grossly intact HEENT: head normocephalic, moist mucus membranes. Continues to have mandibular and TMJ tenderness that extends to her anterior chest wall with (+) supraclavicular tenderness. (-) lymphadenopathy. (+) tinnitus (+) RAYMUNDO CV: S1/S2, (-) M/G/R, (-) edema, cap refill < 3 seconds Resp: Lungs CTA in all beyer. On RA GI: Abdomen S/NT/ND, Ax4 bowel sounds, (-) CVA tenderness Musculoskeletal: 5/5 B/L UE strength, 5/5 B/L LE strength. No gait disturbance. (-) warmth or tenderness on joints; Skin: (-) rashes , (-) erythema. Psych: euthymic mood Results & Data Results & Data Vital Signs (Past 12 Hours) Vital Signs Temp Pulse Resp BP Pulse Ox O2 Del Method 05/09/24 07:46 37 C 93 H 18 142/98 H 93 Room Air Laboratory Results Short CBC 05/09/24 Range/Units 06:14 WBC 11.64 H (4.8-10.8) K/ul Hgb 10.9 L (12.0-16.0) g/dl Hct 33.9 L (37.0-47.0) % Plt Count 242 (130-400) K/uL BMP 05/09/24 06:14 Sodium 138 Potassium 4.2 Chloride 106 Carbon Dioxide 28 BUN 19 Creatinine 1.00 Glucose 92 Calcium 8.2 L
[2024-05-09] MEDS: GADOBUTROL 65ML VIAL IV ONE (12:20)
--- NOTE | 2024-05-09 12:48 | Electrocardiogram Report ---
Test Reason : Blood Pressure : / mmHG Vent. Rate : 085 BPM Atrial Rate : 085 BPM P-R Int : 134 ms QRS Dur : 094 ms QT Int : 362 ms P-R-T Axes : 034 015 008 degrees QTc Int : 430 ms Normal sinus rhythm Poor R wave progression, consider anterior [place] vs. lead placement vs. LVH Nonspecific T wave abnorma lity Anterior leads Abnormal ECG When compared with ECG of 07-MAY-2024 10:23, No significant change Confirmed by Emilio Tom ([id number]) on 05/09/2024 12:47:43 PM Referred By: Usman Mathews Confirmed By:Emilio Tom
--- NOTE | 2024-05-09 12:50 | Magnetic Resonance Report ---
MR brain wo/w con CLINICAL HISTORY: r/o lymes meningitis TECHNIQUE: Multiplanar and multisequence MR images of the brain were obtained prior to and following administration of gadolinium contrast. Comparison: None available at the time of this dictation. FINDINGS: Exam is limited by patient motion. No abnormal restricted diffusion is identified. The white matter is unremarkable. The ventricular sys tem is normal in appearance. No mass or abnormal enhancement is seen. Abdomen rim-enhancing dural bas ed mass is seen in the left temporal region measuring 13 mm with dural tails noted. There is no evide nce of acute intraparenchymal hemorrhage. No extra axial fluid collections are seen. The corpus callo sum, pituitary gland, and cerebellar tonsils appear grossly unremarkable. Flow voids of the major intracranial arterial vessels are identified. The imaged portions of the para nasal sinuses, mastoid air cells, and orbits are unremarkable. IMPRESSION: 1. No acute abnormalities. In particular no evidence of leptomeningeal enhancement to suggest mening itis. 2. Incidental note is made a 13 mm meningioma. ACT 112: Negative or not required by law. Electronically signed by: Cortes Garcia M.D. 05/09/2024 12:47 PM
[2024-05-09 14:38] LABS: EBV Nuclear Ag Antibody >600.00 U/mL
[2024-05-10 08:01] LABS: Basophils # (auto) 0.07 K/uL (0.00-0.20); Basophils % (auto) 1.3 %; Eosinophils # (auto) 0.15 K/uL (0.00-0.50); Eosinophils % (auto) 2.7 %; Hematocrit (blood only) 34.6 % (37.0-47.0); Immature Granulocytes # (auto) 0.04 K/uL (0.01-0.20); Immature Granulocytes % (auto) 0.7 %; Lymphocytes # (auto) 1.86 K/uL (1.20-3.40); Lymphocytes % (auto) 33.9 %; Mean Corpuscular Hemoglobin 28.1 pg (25.0-34.0); Mean Corpuscular Hgb Conc 31.8 g/dL (32.0-36.0); Mean Corpuscular Volume 88.3 fL (80.0-100.0); Mean Platelet Volume 9.1 fL (9.4-12.4); Monocytes # (auto) 0.67 K/uL (0.11-0.59); Monocytes % (auto) 12.2 %; Neutrophils # (auto) 2.69 K/uL (1.40-6.50); Neutrophils % (auto) 49.2 %; Platelet Count 218 K/uL (130-400); RDW Coefficient of Variation 13.2 % (11.5-14.5); RDW Standard Deviation 42.6 fL (36.4-46.3); Red Blood Count 3.92 M/uL (4.20-5.40); White Blood Count 5.48 K/ul (4.8-10.8)
[2024-05-10 08:15] LABS: BUN Creatinine Ratio 13.3 (10-20); Calcium 8.3 mg/dl (8.6-10.3); Creatinine Clr Calc Pharmacy 74.9 ml/min; Est GFR (Non-African American) 58.6 ml/min; Potassium 4.1 mmol/L (3.5-5.1)
--- NOTE | 2024-05-10 09:47 | Pain Management Consultation ---
Date of Consultation May 10, 2024 Assessment & Plan (1) Lyme disease: (2) Acute muscle stiffness of neck: (3) Masseter muscle spasm: (4) Hypertrophy of both masseter muscles: (5) Myofascial muscle pain: (6) Jaw pain: Plan 1. Patient was recommended for trigger point injections today into the bilateral temporalis, masseter, and SCM. * The risks, benefits, and alternatives of the procedure were discussed in detail with the patient, and in full understanding of the procedure to be performed, the patient elects to proceed as discussed. * Consent form was filled out appropriately. TRIGGER POINT INJECTIONS Diagnosis: Myofascial Pain Injection Site: Bilateral temporalis, masseter, sternocleidomastoid Performed By: Cale Torres PA-C Medications used: Lidocaine 1% - 4 mL (2 mL each side) Bupivacaine 0.25% - 6 mL (3 mL each side) Kenalog 40 mg/mL - 1 mL (0.5 mL each side) Prior to starting, the diagnosis and the procedure was reviewed with the patient in detail. Possible risks and complications including infection, bleeding, damage to surrounding structures and increased pain were discussed. Alternative therapies were also reviewed. All questions were answered and they agreed to proceed. Informed consent was obtained. Allergies and medication list was reviewed. The patient was placed in sitting position. Immediately prior to starting the procedure, a time out was conducted with the staff and the patient where the patient was identified, proposed procedure was verified, consent was reviewed and the proper site for the planned procedure was identified. Patient was not given any intravenous sedation and constant verbal contact was maintained throughout the procedure. On examination, no signs of skin breakdown or infection were noted at the injection site. The sites were cleansed with ChloraPrep. Sterile technique was used throughout the procedure. After identifying skeletal landmarks, the musculature on each side, as above, was injected at 5 separate locations with approximately 1-1.5 mL at each site, from a solution containing 2 mL of 1% lidocaine, 3 mL of 0.25% bupivacaine, and 0.5 mL of 40 mg/mL Kenalog. Aspiration was negative. Hemostasis noted. Patient tolerated the procedure uneventfully without complications. 2. Educated patient that the injection may cause some worsening of symptoms over the first 24 hours or so, and that it could be anywhere from a couple of days to a couple of weeks before the steroid takes effect, if it is going to be effective. 3. Recommend patient continue to rest and follow Dr. Rome's recommendations. 4. Will plan to stop by on Wednesday, 05/12, to check on patient's status. History of Present Illness Reason for Consultation: myofacial pain/TMJ. ? TPI? Requesting Physician: Lauren Awad CRNP Attending Physician: Kristofer Reis MD History of Present Illness Patient is a 43-year-old female who presented to the [facility] ED on 05/07/2024 with complaint of bilateral jaw and neck pain radiating into the left shoulder and chest. On the night prior to arrival at the ED, which was about 3 days prior to her presentation, she and her went to a [employer] baseball game and she was yelling very loudly, then woke up Wednesday morning with a hoarse voice but no other symptoms. Throughout the day she developed worsening severe jaw pain bilaterally, she also felt some numbness in the left side of her face and lip and left-sided neck. On Wednesday morning she woke up feeling unwell, complaining of headaches, bilateral jaw pain and neck pain. She had a persistent voice hoarseness. She tried ice and Tylenol without improvement. She was also having a headache and was attempting to take Tylenol at home without relief. She then developed some sharp chest pain at home with radiation into the left underarm. Patient was having issues closing her jaw and was not been able to chew due to pain. Denied any other areas of pain in the body. She reported having the numbness and tingling since the night prior to coming to the ED. She reported that she has difficulty opening and closing her jaw because of severe pain, and felt that she could not fully close her jaw. She did also note about 2 weeks before going to the ED she had a brief episode of jaw pain but it had resolved without intervention. The patient was worked up with an ultrasound soft tissue neck, which was negative for edema, CTA of the chest was negative, EKG was negative, troponin x 2 was negative. She had intermittently fluctuating elevated blood pressures as high as 208/115 at the worst. She received multiple doses of IV Dilaudid, Decadron 10 mg IV, Rocephin x 2 g, Toradol and 2.5 Valium as patient reported that her pain was still not improved the morning after arrival to the ED. Of note, she was requiring 2 L of oxygen to maintain her sats, and at baseline did not require any supplemental O2. Dr. Rome did see the patient and related that she was a typical case of myofascial TMJ, given the presenting symptoms, tight muscles, fast onset and not able to close her back teeth due to retrodiscal swelling. To compensate, the patient will clench and cause more trauma to the muscles, hence an acute myofas cial pain syndrome. He noted that it could take 2-3 weeks with soft diet and facial relaxation to improve. He felt that the patient's issues were possibly caused by clenching, bruxism, stress and family tension with her mother, who was also in the hospital after a fall. The cheering at the baseball game was also a contributing factor. She was recommended for muscle relaxation , use of ice, heat, massage, soft diet, consideration for PT, and then heat and massage if no improvement after 10 to 14 days. Even after a couple of days in the hospital, the patient persisted with severe pain that required IV pain medicine for attempting to get the pain under control. Pain management service was consulted for consideration of trigger point injections. Today, the patient states that she still has severe pain to her bilateral jaw, christianity regions, and neck. She really feels relatively unimproved since coming to the hospital. Patient felt her tetanus immunization was up-to-date. Of note, she was diagnosed with Lyme disease Case discussed with Dr. Hanks. Allergies Allergy/AdvReac Type Severity Reaction Status Date / Time tramadol AdvReac Mild "Did not Verified 11/05/23 08:15 help" with pain Home Medications Medication Instructions Recorded Confirmed Type omeprazole 40 mg capsule,delayed 40 mg PO BID 04/25/20 05/07/24 History release Medical Marijuana 1 dose PO HS sleep 05/16/21 11/12/23 History duloxetine 60 mg capsule,delayed 60 mg PO QAM 02/18/22 05/07/24 History release bupropion HCl 300 mg 24 hr tablet, 300 mg PO QAM 05/22/23 05/07/24 History extended release duloxetine 30 mg capsule,delayed 30 mg PO QAM 05/22/23 05/07/24 History release sumatriptan succinate 50 mg tablet 100 mg PO UD PRN migraines 05/22/23 05/07/24 History valacyclovir 1 gram tablet 2,000 mg PO Q12H PRN flare 05/22/23 05/07/24 History acetaminophen 500 mg tablet 1,000 mg (2 x 500 mg) PO Q8H #60 05/25/23 05/07/24 Rx (Tylenol Extra Strength) tabs loratadine 10 mg tablet (Claritin) 10 mg PO DAILY 05/07/24 05/07/24 History cyclobenzaprine 10 mg tablet 10 mg PO TID #30 tabs 05/11/24 Rx ibuprofen 600 mg tablet 600 mg PO Q8 #30 tabs 05/11/24 Rx oxycodone 5 mg tablet 10 mg (2 x 5 mg) PO Q4H PRN pain 05/11/24 Rx #20 tabs sennosides 8.6 mg-docusate sodium 1 tab PO BID #20 tabs 05/11/24 Rx 50 mg tablet (Senokot-S) Patient History Medical History Refusal of blood transfusions as patient is Ep[employer] Hx of chest pain 05/2023, [place], ~1 week post-op from cervical spine sx.; no cardiac findings, "thought to be from post-op pain, no signs of pulmonary embolism either" Spinal stenosis Arthritis History of skin cancer removed Anxiety and depression Pulmonary embolism 2014- ? r/t control, was on blood thinner for short period of time Surgical History Hx of cervical spine surgery ~05/2023 History of sinus surgery Closure of Large Oral Sinus Opening, Left Sinus [place] (2020, MD) H/O exploratory laparotomy History of tooth extraction History of esophagogastroduodenoscopy (EGD) History of colonoscopy Family History Grandfather Family history of diabetes mellitus Grandmother Family history of diabetes mellitus Grandmother Family hx of colon cancer Grandmother (Maternal) Diabetes Colorectal cancer Father Heart disease Mother Hypertension Uncle Stroke Other Cancer Gall bladder disease Lung disease No family history of adverse response to anesthesia Social History Smoking Status: Never smoker Second Hand Exposure: Yes (grandparents); Do You Dip or Chew Tobacco: No; Hx Alcohol Use: Yes Alcohol type: wine Alcohol Intake Frequency: Monthly or Less Hx Substance Use: No Preferred Language: [place] Communication Ability: Effective Visual Impairment: No Limitations [employer] Required: No Beliefs That Will Affect Care: None Current Living Situation: Family Current Living Situation Comment: home with spouse and son current occupational status: employed 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 Has difficulty speaking secondary to pain and a tight jaw. HEAD/FACE: Normocephalic and atraumatic. + Tender to bilateral temporalis and muscles of mastication. SKIN: [place], warm and dry. No rash noted. PSYCH: Alert, pleasant, affect is calm. ENMT: Mouth: + TMJ tender and + restricted motion of mouth Neck: + neck tender Positive spasm bilateral SCM
[2024-05-10] MEDS: oxyCODONE HCL IR 5 MG TAB (IMMEDIATE RELEASE) PO PRN (11:21)
--- NOTE | 2024-05-10 11:31 | Hospitalist Progress Note ---
Date of Service May 10, 2024 Assessment & Plan (1) Lyme disease: (2) Polyarthritis: (3) Acute muscle stiffness of neck: (4) Cervical lymphadenopathy: (5) H/O cervical spine surgery: (6) Meningioma: Plan This is a 43-year-old female with PMHx of postlaminectomy syndrome of lumbar region, status post lumbar spine nerve stimulator, history of cervical spine surgery, GERD, fibromyalgia, who presents to the hospital last evening for complaints of worsening bilateral jaw and neck pain. Seen by Dr. Roem and tested positive for Lyme screen and IGM on 05/08. Lyme Disease: Polyarthritis: Acute muscle stiffness of neck: Acute On admission: -CT soft tissue neck reviewed showing cervical lymphadenopathy but no other acute findings. No abscess -CTA chest neg for PE, CXR neg -TMJ MRI 05/07: - significantly diminished anterior translation of the mandibular condyles bilaterally on the open mouth images. -There may be tearing of the articular discs. This is not well assessed due to motion artifact. CRP 2.6--> 1.76 today Mild leukocytosis; 11.64; suspect reactive. resolved Lyme serology positive,evaluated due to patients history of fibromyalgia; (+) screen and Lyme IgM (+) Patient on Ceftriaxone; will continue for now as this does cover neuro involvement Infectious Disease consultation placed EBV Equivocal for previous infection Tetanus Up to Date per EPIC 01/02/2020 Given symptoms that include RAYMUNDO, tinnitus and neck stiffness, MRI brain w/wo con without evidence of leptomeningeal enhancement to suggest meningitis. Continue warm/cold compress add OXY IR 5mg q4hr prn mild to mod pain, continue IV morphine for severe pain Continue ibuprofen, increase cyclobenzaprine to 10mg TID, D/C Baclofen Pain management consulted for TPI Soft diet ordered x1 month Dr. Rome saw patient yesterday; appreciate recommendations: suggests patient has full blown myofacial muscle issues with tenderness: PT ordered to address tight SCM + masseter muscles Constipation change colace to Senna S monitor for BM HTN: Likely secondary to pain. Does not take any scheduled anti-hypertensives IV hydralazine prn for BP control normotensive today Meningioma: Chronic Brain MRI obtained to r/o meningitis. Incidental note is made a 13 mm meningioma. May be contributing factor to history of migraines. Follow up as outpatient. Disposition: PCP: Tiny Newhouser Code Status: VTE Prophylaxis: Lovenox, pt with hx of PE/DVT I spent a total of 46 minutes coordinating, documenting, and providing care for this patient excluding time spent in the performance of separately billed services. All of the aforementioned completed while collaborating with the assigned attending physician for a full treatment plan. Please see their addendum for further details. Admission and Anticipated Discharge Date Admission Date: May 07, 2024 Supervising Physician Co-Signing Physician Notes Patient seen and examined independently. Discussed with the provider. Patient reports some improvement in her pain. Pain Mx evaluating. Lyme IgM was positive Patient currently on ceftriaxone MRI brain with and without contrast did not show any enhancement suggestive of meningitis. Found to have incidental 13 mm meningioma. Will need follow-up with PCP with MRI brain in 6 months. Pt has been made aware. Infectious disease input regarding whether this is a atypical presentation of Lyme disease. Continue current medication. Pain management also consulted to see if any trigger point injection will help with pain control. I have reviewed the advanced practitioner's documentation, and I agree with, and take responsibility for the plan of care I spent a total of 20 minutes coordinating, documenting, and providing care for this patient excluding time spent in the performance of separately billed services. All of the aforementioned completed while collaborating with the assigned advanced practitioner for a full treatment plan Subjective Patient was seen and examined in room 275-2. F/U jaw/neck pain. She is currently complaining of 8/10 pain. She was recently seen by pain management and had TPI. Currently she feels pain is worse. She continues to have limited ROM of neck and difficult with opening/closing mouth. She does feel that her tetanus is uptodate. She denies f/c/s, chest pain, sob, n/v/d. She has not had a BM in 3 days. Review of Systems Review of Systems: All systems reviewed & are unremarkable except as noted in HPI & below Physical Exam Physical Exam: Gen: WD/WN, NAD, A&O x3, appears in pain, keeping eyes closed Neck: significant decreased ROM with ext/flexion or lateral flexion to neck, difficulty opening mouth,tenderness to touch to b/l trapezium and SCM HEENT: Normocephalic, atraumatic, conjunctivae moist, sclerae anicteric, mucous membranes moist. Lung: Clear to Auscultation bilaterally, no wheezes/rales/rhonchi Heart: Regular rate, regular rhythm, no murmurs, rubs, or gallops Abdomen: Soft, NT, ND +BS x 4 Extremities: No edema Skin: Warm, no rash, negative turgor. Results & Data Results & Data Vital Signs (Past 12 Hours) Vital Signs Temp Pulse Pulse Resp BP BP Pulse Ox 05/10/24 11:17 36.6 C 98 H 19 152/101 H 94 05/10/24 08:00 05/10/24 07:29 36.6 C 83 18 152/102 H 90 05/10/24 07:00 71 05/10/24 03:05 36.6 C 101 H 18 170/125 H 93 05/10/24 00:40 83 O2 Del Method 05/10/24 11:17 Room Air 05/10/24 08:00 Room Air 05/10/24 07:29 Room Air 05/10/24 07:00 05/10/24 03:05 Room Air 05/10/24 00:40 Laboratory Results Short CBC 05/10/24 Range/Units 07:32 WBC 5.48 (4.8-10.8) K/ul Hgb 11.0 L (12.0-16.0) g/dl Hct 34.6 L (37.0-47.0) % Plt Count 218 (130-400) K/uL BMP 05/10/24 07:32 Sodium 140 Potassium 4.1 Chloride 104 Carbon Dioxide 32 BUN 15 Creatinine 1.13 Glucose 86 Calcium 8.3 L Medications Administered Current Inpatient Medications Baclofen (Baclofen 10 Mg Tab) 5 mg PO TID JA Stop: 06/07/24 13:59 Last Admin: 05/10/24 09:03 Dose: 5 mg Bupropion HCl (Bupropion Xl 300 Mg Tabcr) 300 mg PO QAM JA Stop: 06/06/24 18:29 Last Admin: 05/10/24 09:03 Dose: 300 mg Clonazepam (Clonazepam 0.25 Mg Od Tab) 0.25 mg PO BID JA Stop: 06/06/24 20:59 Last Admin: 05/10/24 08:03 Dose: 0.25 mg Cyclobenzaprine HCl (Cyclobenzaprine Hcl 10 Mg Tab) 10 mg PO BID JA Stop: 06/06/24 12:29 Last Admin: 05/10/24 08:03 Dose: 10 mg Duloxetine HCl (Duloxetine Hcl 60 Mg Cap) 60 mg PO QAM [facility] Stop: 06/06/24 18:29 Last Admin: 05/10/24 09:03 Dose: 60 mg Duloxetine HCl (Duloxetine Hcl 30 Mg Cap) 30 mg PO QAM [facility] Stop: 06/06/24 18:29 Last Admin: 05/10/24 09:03 Dose: 30 mg Enoxaparin Sodium (Enoxaparin Inj 40 Mg/0.4 Ml Syr) [facility] [place] [place] Stop: 06/07/24 08:59 Last Admin: 05/10/24 09:03 Dose: 40 mg Hydralazine HCl (Hydralazine Hcl 20 Mg/Ml Vial) 5 mg IV Q6H PRN PRN Reason: Hypertension Stop: 06/06/24 17:58 Ceftriaxone Sodium (Rocephin) 2,000 mg in 50 mls @ 100 mls/hr IV Q24H [facility] Stop: 05/18/24 04:29 Last Infusion: 05/10/24 05:02 Dose: Infused Ibuprofen (Ibuprofen 600 Mg Tab) 600 mg PO Q8 [facility] Stop: 06/07/24 12:59 Last Admin: 05/10/24 06:14 Dose: 600 mg Loratadine (Loratadine 10 Mg Tab) 10 mg PO DAILY [facility] Stop: 06/06/24 18:29 Last Admin: 05/10/24 09:03 Dose: 10 mg Morphine Sulfate (Morphine Sulfate 4 Mg/Ml 1 Ml Carp\Vial) 4 mg IV Q4H PRN PRN Reason: severe pain Stop: 05/23/24 08:26 Last Admin: 05/10/24 08:04 Dose: 4 mg Ondansetron HCl (Ondansetron Inj 2 Mg/Ml 2 Ml Vial) 4 mg IV Q6H PRN PRN Reason: Nausea And Vomiting Stop: 06/06/24 15:26 Last Admin: 05/10/24 08:03 Dose: 4 mg Oxycodone HCl (Oxycodone Hcl Ir 5 Mg Tab (Immediate Release)) 5 mg PO Q4H PRN PRN Reason: Mild-Mod Pain (Scale 1-6) Stop: 05/24/24 09:09 Last Admin: 05/10/24 11:21 Dose: 5 mg Pantoprazole Sodium (Pantoprazole 40 Mg Tab) 40 mg PO BID JA Stop: 06/06/24 20:59 Last Admin: 05/10/24 09:03 Dose: 40 mg Senna/Docusate Sodium (Docusate Sodium/Senna 50/8.6mg Tab) 1 tab PO BID JA Stop: 06/09/24 20:59
[2024-05-10] MEDS ORDERED: ENOXAPARIN INJ 40 MG/0.4 ML SYR SQ SCH (21:00)
[2024-05-10] MEDS: CYCLOBENZAPRINE HCL 10 MG TAB PO SCH (22:17)
[2024-05-10] MEDS: DOCUSATE SODIUM/SENNA 50/8.6MG TAB PO SCH (22:18)
[2024-05-11 06:16] LABS: Basophils # (auto) 0.02 K/uL (0.00-0.20); Basophils % (auto) 0.3 %; Eosinophils # (auto) 0.03 K/uL (0.00-0.50); Eosinophils % (auto) 0.5 %; Hematocrit (blood only) 34.8 % (37.0-47.0); Hemoglobin 11.2 g/dl (12.0-16.0); Immature Granulocytes # (auto) 0.05 K/uL (0.01-0.20); Immature Granulocytes % (auto) 0.8 %; Lymphocytes # (auto) 1.32 K/uL (1.20-3.40); Lymphocytes % (auto) 21.9 %; Mean Corpuscular Hemoglobin 28.2 pg (25.0-34.0); Mean Corpuscular Hgb Conc 32.2 g/dL (32.0-36.0); Mean Corpuscular Volume 87.7 fL (80.0-100.0); Mean Platelet Volume 9.3 fL (9.4-12.4); Monocytes # (auto) 0.48 K/uL (0.11-0.59); Neutrophils # (auto) 4.12 K/uL (1.40-6.50); Neutrophils % (auto) 68.5 %; Platelet Count 237 K/uL (130-400); RDW Coefficient of Variation 12.6 % (11.5-14.5); RDW Standard Deviation 40.3 fL (36.4-46.3); Red Blood Count 3.97 M/uL (4.20-5.40); White Blood Count 6.02 K/ul (4.8-10.8)
[2024-05-11 06:50] LABS: Calcium 8.7 mg/dl (8.6-10.3)
[2024-05-11 06:56] LABS: BUN Creatinine Ratio 18.9 (10-20); Creatinine Clr Calc Pharmacy 89.3 ml/min; Est GFR (African American) 83.8 ml/min; Est GFR (Non-African American) 72.3 ml/min
[2024-05-11] MEDS ORDERED: oxyCODONE HCL IR 5 MG TAB (IMMEDIATE RELEASE) PO PRN (11:03)
--- NOTE | 2024-05-11 14:00 | CT Scan Report ---
CT SCAN OF THE BRAIN WITHOUT IV CONTRAST CLINICAL HISTORY: Blurry vision. COMPARISON STUDY: CT of the brain dated 09/21/2021. MRI of the brain dated 05/09/2024. TECHNIQUE: Unenhanced axial CT scan of the brain is performed from the vertex to the skull base. A d ose lowering technique was utilized adhering to the principles of ALARA. CT DOSE: 547.75 mGy.cm FINDINGS: Brain parenchyma: The brain parenchyma is normal in appearance. There is no hemorrhage, mass effect, or evidence of acute territorial ischemia by CT criteria. Person-white matter differentiation is preser rufino. No extra-axial fluid collection is seen. Ventricles, sulci, cisterns: Normal in configuration. Intracranial vasculature: The visualized intracranial vasculature at the skull base is normal in appe arance. Calvarium: Unremarkable. Sinuses and mastoids: The visualized paranasal sinuses are clear. The mastoid air cells are well pneu matized. Orbits: The bony orbits are grossly intact. IMPRESSION: No acute intracranial abnormality. ACT 112: Negative or not required by law. Electronically signed by: Robinson Carpenter M.D. 05/11/2024 1:59 PM
--- NOTE | 2024-05-11 14:43 | Hospitalist Progress Note ---
Date of Service May 11, 2024 Assessment & Plan (1) Lyme disease: (2) Polyarthritis: (3) Acute muscle stiffness of neck: (4) Cervical lymphadenopathy: (5) H/O cervical spine surgery: (6) Meningioma: Plan This is a 43-year-old female with PMHx of postlaminectomy syndrome of lumbar region, status post lumbar spine nerve stimulator, history of cervical spine surgery, GERD, fibromyalgia, who presents to the hospital last evening for complaints of worsening bilateral jaw and neck pain. Seen by Dr. Rome and tested positive for Lyme screen and IGM on 05/08. Anaplasma: Polyarthritis: Acute muscle stiffness of neck: Acute On admission: -CT soft tissue neck reviewed showing cervical lymphadenopathy but no other acute findings. No abscess -CTA chest neg for PE, CXR neg -TMJ MRI 05/07: - significantly diminished anterior translation of the mandibular condyles bilaterally on the open mouth images. -There may be tearing of the articular discs. This is not well assessed due to motion artifact. CRP 2.6--> 1.76 today Mild leukocytosis; 11.64; suspect reactive. resolved Lyme serology positive,evaluated due to patients history of fibromyalgia; (+) screen and Lyme IgM (+) Anaplasma serology positive - discussed with Dr. Lopez Infectious disease who recommends oral doxycycline for 10 days duration of total therapy. Patient on Ceftriaxone; will continue for now as this does cover neuro involvement Infectious Disease consultation placed EBV Equivocal for previous infection Tetanus Up to Date per EP[facility] 01/02/2020 Given symptoms that include RAYMUNDO, tinnitus and neck stiffness, MRI brain w/wo con without evidence of leptomeningeal enhancement to suggest meningitis. Continue warm/cold compress increase OXY IR to 10mg q6hr prn mild to mod pain, continue IV morphine for severe pain Continue ibuprofen, increase cyclobenzaprine to 10mg TID, D/C Baclofen Pain management consulted for TPI Soft diet ordered x1 month Dr. Rome saw patient yesterday; appreciate recommendations: suggests patient has full blown myofacial muscle issues with tenderness: PT ordered to address tight SCM + masseter muscles Sx improving, planning to discharge tomorrow Blurry Vision Hx of migraine pt reports blurry vision when looking close to her phone, she is able look at clock on wall w/o issue, sx resolve when she closes one eye no other focal decifit, sx come and go, mostly notices when she is looking at her phone she does report hx of presbyopia and does nto have her reading glasses she also reports R sided headed, suspect possible migraine variant CT head ordered and independently reviewed and is w/o acute abnormality will order prn triptan, pt encouraged to take if RAYMUNDO worsens encourage pt to f/u with OP optometry if sx persist, will pursue appt at discharge if still present Constipation change colace to Senna S monitor for BM HTN: Likely secondary to pain. Does not take any scheduled anti-hypertensives IV hydralazine prn for BP control Bp adequate she has not required any prn doses Meningioma: Chronic Brain MRI obtained to r/o meningitis. Incidental note is made a 13 mm meningioma. May be contributing factor to history of migraines. Follow up as outpatient. Disposition: Plan to discharge was today; however given continued pain and blurry vision, pt wishes to remain hospitalized for one more day, will re evaluate tomorrow PCP: Tiny Brownlee Code Status: FULL CODE VTE Prophylaxis: Lovenox, pt with hx of PE/DVT I spent a total of 55 minutes coordinating, documenting, and providing care for this patient excluding time spent in the performance of separately billed services. All of the aforementioned completed while collaborating with the assigned attending physician for a full treatment plan. Please see their addendum for further details. Pt was seen and examined in collaboration with Dr. Reis, please see addendum Admission and Anticipated Discharge Date Admission Date: May 07, 2024 Supervising Physician Co-Signing Physician Notes Patient seen and examined independently. Discussed with the provider. Patient reports some improvement in her pain. Pain Mx evaluating. Lyme and anaplasma positive Patient currently on ceftriaxone MRI brain with and without contrast did not show any enhancement suggestive of meningitis. Found to have incidental 13 mm meningioma. Will need follow-up with PCP with MRI brain in 6 months. Pt has been made aware. Infectious disease input appreciated. Pain management also consulted to see if any trigger point injection will help with pain control. I have reviewed the advanced practitioner's documentation, and I agree with, and take responsibility for the plan of care I spent a total of 20 minutes coordinating, documenting, and providing care for this patient excluding time spent in the performance of separately billed serv ices. All of the aforementioned completed while collaborating with the assigned advanced practitioner for a full treatment plan Subjective Patient was seen and examined in room 275-2. F/U jaw/neck pain. Her pain is improving, but she continues to have pain. She is requesting increased pain meds. She denies f/c/s, chest pain, sob, n/v/d. Initial plan was for discharge today; however at 12:00 pm. she brought to my attn some blurry vision when looking close at her phone, but she was able to read the clock on the wall. She states she noticed this starting at 10 p.m. last evening. She denies any numbness/tingling, focal weakness, dysphagia, dysarthria or slurred speech. She has hx of migraine and has never had an aura before. Typically this presents with frontal headache and phono/photophobia. She denies this. She also wishes to lengthen her hospital stay by one additional day. Review of Systems Review of Systems: All systems reviewed & are unremarkable except as noted in HPI & below Physical Exam Physical Exam: Gen: WD/WN, NAD, A&O x3, appears in pain, keeping eyes closed Neck: significant decreased ROM with ext/flexion or lateral flexion to neck, difficulty opening mouth,tenderness to touch to b/l trapezium and SCM HEENT: Normocephalic, atraumatic, conjunctivae moist, sclerae anicteric, mucous membranes moist. Lung: Clear to Auscultation bilaterally, no wheezes/rales/rhonchi Heart: Regular rate, regular rhythm, no murmurs, rubs, or gallops Abdomen: Soft, NT, ND +BS x 4 Extremities: No edema Skin: Warm, no rash, negative turgor. Neuro: full AROM to all ext, strength 5/5, no dysarthria, facial droop, slurred speech, EOMI, no tongue deviation Results & Data Results & Data Vital Signs (Past 12 Hours) Vital Signs Temp Pulse Pulse Resp BP Pulse Ox O2 Del Method 05/11/24 12:04 145/89 H 05/11/24 11:37 36.6 C 91 H 18 134/87 95 Room Air 05/11/24 11:17 89 05/11/24 06:32 36.6 C 89 16 149/88 H 94 Room Air 06/27/24 03:09 36.8 C 108 H 18 146/102 H 96 Room Air Laboratory Results Short CBC 05/11/24 Range/Units 05:36 WBC 6.02 (4.8-10.8) K/ul Hgb 11.2 L (12.0-16.0) g/dl Hct 34.8 L (37.0-47.0) % Plt Count 237 (130-400) K/uL BMP 05/11/24 05:36 Sodium 138 Potassium 4.0 Chloride 103 Carbon Dioxide 29 BUN 18 Creatinine 0.95 Glucose 158 H Calcium 8.[address] 05/11/24 12:36 CT SCAN OF THE BRAIN WITHOUT IV CONTRAST CLINICAL HISTORY: Blurry vision. COMPARISON STUDY: CT of the brain dated 09/21/2021. MRI of the brain dated 05/09/2024. TECHNIQUE: Unenhanced axial CT scan of the brain is performed from the vertex to the skull base. A dose lowering technique was utilized adhering to the principles of ALARA. CT DOSE: 547.75 mGy.cm FINDINGS: Brain parenchyma: The brain parenchyma is normal in appearance. There is no hemorrhage, mass effect, or evidence of acute territorial ischemia by CT criteria. Person-white matter differentiation is preserved. No extra-axial fluid collection is seen. Ventricles, sulci, cisterns: Normal in configuration. Intracranial vasculature: The visualized intracranial vasculature at the skull base is normal in appearance. Calvarium: Unremarkable. Sinuses and mastoids: The visualized paranasal sinuses are clear. The mastoid air cells are well pneumatized. Orbits: The bony orbits are grossly intact. IMPRESSION: No acute intracranial abnormality. ACT 112: Negative or not required by law. Electronically signed by: Robinson Carpenter M.D. 05/11/2024 1:59 PM Medications Administered Current Inpatient Medications Bupropion HCl (Bupropion Xl 300 Mg Tabcr) 300 mg PO QAM JA Stop: 06/06/24 18:29 Last Admin: 05/11/24 08:21 Dose: 300 mg Clonazepam (Clonazepam 0.25 Mg Od Tab) 0.25 mg PO BID JA Stop: 06/06/24 20:59 Last Admin: 05/11/24 08:26 Dose: 0.25 mg Cyclobenzaprine HCl (Cyclobenzaprine Hcl 10 Mg Tab) 10 mg PO TID JA Stop: 06/09/24 20:59 Last Admin: 05/11/24 08:21 Dose: 10 mg Doxycycline Hyclate (Doxycycline Hyclate 100 Mg Cap) 100 mg PO BID [facility] Stop: 05/19/24 08:59 Duloxetine HCl (Duloxetine Hcl 60 Mg Cap) 60 mg PO QAM [facility] Stop: 06/06/24 18:29 Last Admin: 05/11/24 08:22 Dose: 60 mg Duloxetine HCl (Duloxetine Hcl 30 Mg Cap) 30 mg PO QAM [facility] Stop: 06/06/24 18:29 Last Admin: 05/11/24 08:22 Dose: 30 mg Enoxaparin Sodium (Enoxaparin Inj 40 Mg/0.4 Ml Syr) 40 mg SQ QAM [facility] Stop: 06/07/24 08:59 Last Admin: 05/11/24 08:22 Dose: 40 mg Hydralazine HCl (Hydralazine Hcl 20 Mg/Ml Vial) 5 mg IV Q6H PRN PRN Reason: Hypertension Stop: 06/06/24 17:58 Ibuprofen (Ibuprofen 600 Mg Tab) 600 mg PO Q8 [facility] Stop: 06/07/24 12:59 Last Admin: 05/11/24 04:50 Dose: 600 mg Loratadine (Loratadine 10 Mg Tab) 10 mg PO DAILY [facility] Stop: 06/06/24 18:29 Last Admin: 05/11/24 08:23 Dose: 10 mg Morphine Sulfate (Morphine Sulfate 4 Mg/Ml 1 Ml Carp\Vial) 4 mg IV Q4H PRN PRN Reason: severe pain Stop: 05/23/24 08:26 Last Admin: 05/11/24 06:26 Dose: 4 mg Ondansetron HCl (Ondansetron Inj 2 Mg/Ml 2 Ml Vial) 4 mg IV Q6H PRN PRN Reason: Nausea And Vomiting Stop: 06/06/24 15:26 Last Admin: 05/10/24 16:49 Dose: 4 mg Oxycodone HCl (Oxycodone Hcl Ir 5 Mg Tab (Immediate Release)) 10 mg PO Q6H PRN PRN Reason: Mild-Mod Pain (Scale 1-6) Stop: 05/25/24 11:02 Pantoprazole Sodium (Pantoprazole 40 Mg Tab) 40 mg PO BID [facility] Stop: 06/06/24 20:59 Last Admin: 05/11/24 08:23 Dose: 40 mg Senna/Docusate Sodium (Docusate Sodium/Senna 50/8.6mg Tab) 1 tab PO BID JA Stop: 06/09/24 20:59 Last Admin: 05/11/24 08:22 Dose: 1 tab
[2024-05-11] MEDS ORDERED: SUMAtriptan succinate 100 MG TAB PO PRN (15:25)
[2024-05-11] MEDS: oxyCODONE HCL IR 5 MG TAB (IMMEDIATE RELEASE) PO PRN (18:50)
[2024-05-11 21:23] LABS: Babesia microti DNA Not Detected (Not Detected)
[2024-05-12] MEDS: MoRPHine SULFATE 4 MG/ML 1 ML CARP\\VIAL IV STA (04:15)
[2024-05-12 06:30] LABS: Basophils # (auto) 0.04 K/uL (0.00-0.20); Basophils % (auto) 0.6 %; Eosinophils # (auto) 0.12 K/uL (0.00-0.50); Eosinophils % (auto) 1.9 %; Hematocrit (blood only) 36.4 % (37.0-47.0); Hemoglobin 11.6 g/dl (12.0-16.0); Immature Granulocytes # (auto) 0.04 K/uL (0.01-0.20); Immature Granulocytes % (auto) 0.6 %; Lymphocytes # (auto) 1.84 K/uL (1.20-3.40); Mean Corpuscular Hemoglobin 28.3 pg (25.0-34.0); Mean Corpuscular Hgb Conc 31.9 g/dL (32.0-36.0); Mean Corpuscular Volume 88.8 fL (80.0-100.0); Mean Platelet Volume 9.3 fL (9.4-12.4); Monocytes # (auto) 0.66 K/uL (0.11-0.59); Monocytes % (auto) 10.4 %; Neutrophils # (auto) 3.64 K/uL (1.40-6.50); Neutrophils % (auto) 57.5 %; Platelet Count 257 K/uL (130-400); RDW Coefficient of Variation 12.9 % (11.5-14.5); RDW Standard Deviation 41.3 fL (36.4-46.3); White Blood Count 6.34 K/ul (4.8-10.8)
[2024-05-12 07:14] LABS: Estimated Average Glucose 111 mg/dl; Hemoglobin A1C 5.5 % (4.5-5.6)
[2024-05-12 07:24] LABS: BUN Creatinine Ratio 17.2 (10-20); Calcium 8.9 mg/dl (8.6-10.3); Creatinine Clr Calc Pharmacy 85.8 ml/min; Est GFR (African American) 79.8 ml/min; Est GFR (Non-African American) 68.8 ml/min
[2024-05-12] MEDS: DOXYCYCLINE HYCLATE 100 MG CAP PO SCH (09:34)
--- NOTE | 2024-05-12 09:58 | Pain Management Progress Note ---
Date of Service May 12, 2024 Assessment & Plan (1) Lyme disease: (2) Acute muscle stiffness of neck: (3) Masseter muscle spasm: (4) Hypertrophy of both masseter muscles: (5) Myofascial muscle pain: (6) Jaw pain: Plan 1. Recommend patient continue to rest and follow Dr. Rome's recommendations. 2. Educated patient that we could consider a repeat of the trigger point injections if she feels her pain worsens again and it is to the degree that would warrant attempting them again. * Typically we would want to wait at least 90 days prior to repeating this, but could consider sooner if symptoms were to be severe enough. * If this were to be done, it would be facilitated as an outpatient at the pain management clinic. 3. Pain management service will sign off at this time. Thank you for the consultation! Admission and Anticipated Discharge Date Admission Date: May 07, 2024 Subjective Patient admits to some mild worsening of symptoms the day after the injections, but she is feeling better today since the trigger point injections done 2 days ago. She is able to more readily talk with less pain. She feels her jaw range of motion is improved and she can open her mouth more easily. She does still have pain to the bilateral temporalis, jaw, and SCM regions, but less intense. She has transitioned to only oral pain medications. She is hoping to be able to be discharged today. Case discussed with Dr. Hanks. Physical Exam Physical Exam: GENERAL: WN/WD, AA&Ox3, NAD. Speaking much improved over the past 48 hours. She appears generally in better spirits. HEAD/FACE: Normocephalic and atraumatic. + Tender to bilateral temporalis and muscles of mastication; improved compared to prior. SKIN: [place], warm and dry. No rash noted. PSYCH: Alert, pleasant, affect is calm. ENMT: Mouth: + TMJ tender and + restricted motion of mouth ( improved compared to prior.) Neck: + neck tender ( improved compared to luis or.)
--- NOTE | 2024-05-12 12:47 | Discharge Summary ---
Discharge Summary Date of Service May 12, 2024 Principal Dx & Hospital Course #1 = Principal Diagnosis (1) Lyme disease: (2) Polyarthritis: (3) Acute muscle stiffness of neck: (4) Cervical lymphadenopathy: (5) H/O cervical spine surgery: (6) Meningioma: Plan This is a 43-year-old female with PMHx of postlaminectomy syndrome of lumbar region, status post lumbar spine nerve stimulator, history of cervical spine surgery, GERD, fibromyalgia, who presents to the hospital last evening for complaints of worsening bilateral jaw and neck pain. Seen by Dr. Rome and tested positive for Lyme screen and IGM on 05/08. Anaplasma: Polyarthritis: Acute muscle stiffness of neck: Acute On admission: -CT soft tissue neck reviewed showing cervical lymphadenopathy but no other acute findings. No abscess -CTA chest neg for PE, CXR neg -TMJ MRI 05/07: - significantly diminished anterior translation of the mandibular condyles bilaterally on the open mouth images. -There may be tearing of the articular discs. This is not well assessed due to motion artifact. CRP 2.6--> 1.76 today Mild leukocytosis; 11.64; suspect reactive. resolved Lyme serology positive,evaluated due to patients history of fibromyalgia; (+) screen and Lyme IgM (+) Anaplasma serology positive - discussed with Dr. Lopez Infectious disease who recommends oral doxycycline for 14 days duration of total therapy due to possible nerve involvement. EBV Equivocal for previous infection Tetanus Up to Date per EPIC 01/02/2020 MRI brain w/wo con without evidence of leptomeningeal enhancement to suggest meningitis. Continue warm/cold compress increase OXY IR to 10mg q6hr prn mild to mod pain Continue ibuprofen, increase cyclobenzaprine to 10mg TID, Pain management consulted for TPI, f/u with pain management as outpatient if sx do not improve Soft diet ordered x1 month Dr. Rome saw patient yesterday; appreciate recommendations: suggests patient has full blown myofacial muscle issues with tenderness: PT ordered to address tight SCM + masseter muscles Sx improving, planning to discharge today Blurry Vision Hx of migraine pt reports blurry vision when looking close to her phone, she is able look at clock on wall w/o issue, sx resolve when she closes one eye no other focal decifit, sx come and go, mostly notices when she is looking at her phone she does report hx of presbyopia and does nto have her reading glasses She also reports, "floaters," she denies red eye, eye drainage or eye pain She is encouraged to follow up with her Clutch Operator as outpatient as soon as she is discharged, she states she is due for her yearly exam anyway she is educated if sx worsens to return to ED immediately Constipation continue stool softener at home until bowels normalize and return to baseline HTN: Likely secondary to pain/anxiety Does not take any scheduled anti-hypertensives encourage to monitor blood pressure at home and keep a log and take this with her to her PCP appt to determine if she needs close monitoring Meningioma: Chronic Brain MRI obtained to r/o meningitis. Incidental note is made a 13 mm meningioma. May be contributing factor to history of migraines. Follow up as outpatient. Disposition: Plan to discharge today PCP: Tiny Brownlee Code Status: FULL CODE Pt was seen and examined in collaboration with Dr. Reis, please see addendum Notes For Next Care Provider Patient presented with acute myofascial pain of her bilateral masseter muscles, sternocleidomastoid and trapezius. She was seen and evaluated by oral maxillofacial Dr. Rome who recommended soft diet for 1 month, NSAIDs, heat/cold therapy, muscle relaxer and physical therapy. Her symptoms have been gradually resolving. If her symptoms do not resolve within 2 weeks it is recommended she follows up with Dr. Rome. Her Anaplasma serology came back positive. Infectious disease was consulted and it was recommended she take a total of 14 days of antibiotics. She is being discharged on additional 10 days of oral doxycycline. Infectious disease recommended 14 days due to concern for possible facial nerve involvement. On day of discharge she was complaining of some blurry vision and floaters. CT head was negative. She is educated to call her package dyeing machine operator at discharge for dilated eye exam. Please follow-up and ensure this has been done. Her blood pressure was elevated throughout her hospital stay and it was felt this was secondary to pain/anxiety. Please follow-up with blood pressure to det ermine if she needs started on antihypertensives versus close follow-up. Meningioma was noted incidentally on MRI. Please follow this. Medication Changes From Visit Please refer to Discharge Instructions Admission HPI Per Admitting Provider This is a 43-year-old female with PMHx of postlaminectomy syndrome of lumbar region, status post lumbar spine nerve stimulator, history of cervical spine surgery, GERD, fibromyalgia, who presents to the hospital last evening for c omplaints of worsening bilateral jaw and neck pain. night she and her went to a [employer] baseball game and states that she was yelling very loudly, woke up Wednesday morning with a hoarse voice but no other symptoms. Throughout the day she developed worsening severe jaw pain bilaterally, she also felt some numbness in the left side of her face and lip and left neck. She was having headache and was attempting to take Tylenol at home without relief. She then developed some sharp chest pain at home radiation into the left underarm. Pt has issues closing her jaw and has not been able to chew due to pain. Denies any other areas of pain in the body. She does note about 2 weeks ago had a brief episode of jaw pain but it had resolved without intervention. Overnight the patient was tested with a ultrasound soft tissue neck which is negative for edema, CTA of the chest is negative, EKG is negative, troponin x 2 is negative. She has had intermittently fluctuating elevated blood pressures as high as 208/115 at the worst overnight. She has received multiple doses of IV Dilaudid, Decadron 10 mg IV, Rocephin x 2 g, Toradol and most recently 2.5 Valium as patient reported that her pain was still not improved this morning in the ER. Of note she is now requiring 2 L of oxygen to maintain her sats, and at baseline does not require any supplemental O2. Admission Exam Per Admitting Provider General: awake, alert, no apparent distress, white female Head: Normocephalic, atraumatic ENT: PERRL, EOMI, no pharyngeal exudate, mucous membranes moist, + tenderness with TMJ palpation. Significant difficulty with moving her neck in all directions, + appears swollen in neck bilaterally and slightly tender with palpation Chest: Clear to auscultation, on room air, no adventitious breath sounds Cardiac: Regular rate and rhythm, no murmur, no JVD, normal peripheral pulses, good capillary refill Abdominal: NABS x 4 quadrants, soft, nondistended, nontender to palpation, no rebound or guarding Extremities: Normal inspection, no peripheral edema or erythema, calfs nontender to palpation Psych: Normal mood and affect Neuro: AAO x 3, strength intact bilaterally and rated 5/5, no motor deficits, speech is clear, no peripheral sensory deficits Discharge Exam Gen: WD/WN, F, sitting up in bed, appears much more comfortable, NAD, A&O x3 HEENT: Normocephalic, atraumatic, conjunctivae moist, sclerae anicteric, mucous membranes moist. Neck: improvement in ROM to neck, tightness to masseter muscles improving. Lung: Clear to Auscultation bilaterally, no wheezes/rales/rhonchi Heart: Regular rate, regular rhythm, no murmurs, rubs, or gallops Abdomen: Soft, NT, ND +BS x 4 Extremities: No edema Skin: Warm, no rash, negative turgor. Updated Medication List Medication Instructions Recorded Confirmed Type omeprazole 40 mg capsule,delayed 40 mg PO BID 04/25/20 05/07/24 History release Medical Marijuana 1 dose PO HS sleep 05/16/21 11/12/23 History duloxetine 60 mg capsule,delayed 60 mg PO QAM 02/18/22 05/07/24 History release bupropion HCl 300 mg 24 hr tablet, 300 mg PO QAM 05/22/23 05/07/24 History extended release duloxetine 30 mg capsule,delayed 30 mg PO QAM 05/22/23 05/07/24 History release sumatriptan succinate 50 mg tablet 100 mg PO UD PRN migraines 05/22/23 05/07/24 History valacyclovir 1 gram tablet 2,000 mg PO Q12H PRN flare 05/22/23 05/07/24 History acetaminophen 500 mg tablet 1,000 mg (2 x 500 mg) PO Q8H #60 05/25/23 05/07/24 Rx (Tylenol Extra Strength) tabs loratadine 10 mg tablet (Claritin) 10 mg PO DAILY 05/07/24 05/07/24 History cyclobenzaprine 10 mg tablet 10 mg PO TID #30 tabs 05/11/24 Rx ibuprofen 600 mg tablet 600 mg PO Q8 #30 tabs 05/11/24 Rx oxycodone 5 mg tablet 10 mg (2 x 5 mg) PO Q4H PRN pain 05/11/24 Rx #20 tabs sennosides 8.6 mg-docusate sodium 1 tab PO BID #20 tabs 05/11/24 Rx 50 mg tablet (Senokot-S) doxycycline hyclate 100 mg capsule 100 mg PO BID 10 days #20 caps 05/12/24 Rx Hospital Stay Data Consultations 05/07/24 11:06 ED Decision to Admit Stat 05/07/24 11:49 Consult Oromaxillofacial Surgery Routine 05/09/24 07:14 Consult Pain Management Routine Diagnostic Imagining Performed Chest CTA 05/07/24 01:21 Exam(s): CTA CHEST IV Amt: 118 cc opti 320 EXAM: CT Angiography Chest With Intravenous Contrast CLINICAL HISTORY: Reason for exam: PE/SVC syndrome. TECHNIQUE: Axial computed tomographic angiography images of the chest with intravenous contrast. CTDI is 28.05 mGy and DLP is 1559.3 mGy-cm. Automated exposure control was utilized for the study. A dose lowering technique was utilized adhering to the principles of ALARA. MIP reconstructed images were created and reviewed. COMPARISON: No relevant prior studies available. FINDINGS: Pulmonary arteries: Unremarkable. No pulmonary embolism. Aorta: No acute findings. No thoracic aortic aneurysm. Superior vena cava: Unremarkable as visualized. No occlusion of the superior vena cava. Lungs: Unremarkable. No mass. No consolidation. Pleural space: Unremarkable. No significant effusion. No pneumothorax. Heart: Unremarkable. No cardiomegaly. No significant pericardial effusion. No evidence of RV dysfunction. Bones/joints: No acute fracture. No dislocation. Soft tissues: Unremarkable. Lymph nodes: Unremarkable. No enlarged lymph nodes. Tubes, lines and devices: Delores stimulator leads. IMPRESSION: No occlusion of the superior vena cava. Electronically signed by: Jack Smith MD 05/07/24 02:46 AM Chest X-Ray 05/07/24 01:21 SINGLE VIEW CHEST CLINICAL HISTORY: Atypical chest pain. FINDINGS: An AP, portable, upright chest radiograph is compared to chest x-ray and chest CT dated 05/22/2023. The examination was repeated due to severe artifact on the initial image. The cardiomediastinal silhouette is unremarkable. The lungs and pleural spaces are clear. No pneumothorax is seen. The bony thorax is grossly intact. Postsurgical change is noted in the lower cervical spine. An intrathecal lead projects over the thoracic spine. IMPRESSION: No active disease in the chest. ACT 112: Negative or not required by law. Electronically signed by: Robinson Carpenter M.D. 05/07/2024 8:59 AM Soft Tissue Neck CT 05/07/24 01:21 Exam(s): CT NECK With Contrast IV Amt: 118 cc opti 320 EXAM: CT Neck With Intravenous Contrast CLINICAL HISTORY: Reason for exam: B jaw/neck pain/swelling, ? infx/obstruction/mass. TECHNIQUE: Axial computed tomography images of the neck with intravenous contrast. CTDI is 28.05 mGy and DLP is 1559.3 mGy-cm. Automated exposure control was utilized for the study. A dose lowering technique was utilized adhering to the principles of ALARA. CONTRAST: Patient received 118 cc opti 320 of IV contrast COMPARISON: No relevant prior studies available. FINDINGS: Oropharynx: Unremarkable. No significant tonsillar enlargement. No peritonsillar abscess. Hypopharynx: Unremarkable. Larynx: Unremarkable. Normal epiglottis. Trachea: Unremarkable. Retropharyngeal space: Unremarkable. Submandibular/parotid glands: Unremarkable. Glands are normal in size. Thyroid: Unremarkable. No enlarged or calcified nodules. Bones/joints: No acute fracture. Status post disc replacement at C5-6. Soft tissues: Unremarkable. Vasculature: Tortuous and ectatic external jugular vein along the anterior cervical soft tissues and right submandibular space. Lymph nodes: Prominent cervical lymph nodes with prominent lymph node in the left ascending tubular space. Lung apices: Unremarkable as visualized. IMPRESSION: Prominent cervical lymph nodes. No evidence of mass or lesion. Ectatic and tortuous external jugular vein overlying the anterior cervical soft tissues and right submandibular space Electronically signed by: Zohreh Floyd MD 05/07/24 03:47 AM Temporomandibular Joint MRI 05/07/24 15:19 MRI OF THE TEMPOROMANDIBULAR JOINTS CLINICAL HISTORY: Bilateral TMJ pain. COMPARISON STUDY: CT scan of the neck dated 05/07/2024. TECHNIQUE: MRI of the temporomandibular joints was performed utilizing various T1 and T2-weighted weighted sagittal oblique sequences with the mouth open and closed. T2 localizer sequence was also performed. IV contrast was not measured for this examination. The examination is degraded by motion artifact. FINDINGS: Right temporomandibular joint: The articular disc is normally positioned on the closed mouth images. This remains normally positioned on the open-mouth images. There is significantly diminished anterior translation of the mandibular condyle. There may be tearing of the articular disc. This is not well assessed due to motion artifact. Left temporomandibular joint: The articular disc is normally positioned on the closed mouth imaging. This remains normally positioned on the open-mouth imaging. There is diminished anterior translation of the mandibular condyle. There may be tearing of the articular disc. This is not well assessed due to motion artifact. The visualized brain parenchyma is normal as imaged. Normal marrow signal intensity is preserved throughout the visualized bony structures. IMPRESSION: 1. The articular disc is normally positioned bilaterally on the closed mouth images, and maintains normal position on the attempted open mouth imaging. 2. There is significantly diminished anterior translation of the mandibular condyles bilaterally on the open mouth images. 3. There may be tearing of the articular discs. This is not well assessed due to motion artifact. ACT 112: Negative or not required by law. Electronically signed by: Robinson Carpenter M.D. 05/07/2024 8:10 PM Brain MRI 05/09/24 10:34 MR brain wo/w con CLINICAL HISTORY: r/o lymes meningitis TECHNIQUE: Multiplanar and multisequence MR images of the brain were obtained prior to and following administration of gadolinium contrast. Comparison: None available at the time of this dictation. FINDINGS: Exam is limited by patient motion. No abnormal restricted diffusion is identified. The white matter is unremarkable. The ventricular system is normal in appearance. No mass or abnormal enhancement is seen. Abdomen rim-enhancing dural based mass is seen in the left temporal region measuring 13 mm with dural tails noted. There is no evidence of acute intraparenchymal hemorrhage. No extra axial fluid collections are seen. The corpus callosum, pituitary gland, and cerebellar tonsils appear grossly unremarkable. Flow voids of the major intracranial arterial vessels are identified. The imaged portions of the paranasal sinuses, mastoid air cells, and orbits are unremarkable. IMPRESSION: 1. No acute abnormalities. In particular no evidence of leptomeningeal enhancement to suggest meningitis. 2. Incidental note is made a 13 mm meningioma. ACT 112: Negative or not required by law. Electronically signed by: Cortes Garcia M.D. 05/09/2024 12:[address] 05/11/24 12:36 CT SCAN OF THE BRAIN WITHOUT IV CONTRAST CLINICAL HISTORY: Blurry vision. COMPARISON STUDY: CT of the brain dated 09/21/2021. MRI of the brain dated 05/09/2024. TECHNIQUE: Unenhanced axial CT scan of the brain is performed from the vertex to the skull base. A dose lowering technique was utilized adhering to the principles of ALARA. CT DOSE: 547.75 mGy.cm FINDINGS: Brain parenchyma: The brain parenchyma is normal in appearance. There is no hemorrhage, mass effect, or evidence of acute territorial ischemia by CT criteria. Person-white matter differentiation is preserved. No extra-axial fluid collection is seen. Ventricles, sulci, cisterns: Normal in configuration. Intracranial vasculature: The visualized intracranial vasculature at the skull base is normal in appearance. Calvarium: Unremarkable. Sinuses and mastoids: The visualized paranasal sinuses are clear. The mastoid air cells are well pneumatized. Orbits: The bony orbits are grossly intact. IMPRESSION: No acute intracranial abnormality. ACT 112: Negative or not required by law. Electronically signed by: Robinson Carpenter M.D. 05/11/2024 1:59 PM Pending Results Patient Have Any Pending Studies at Discharge: No Discharge Instructions Given to Patient (Per Discharging Provider) You came in to the Emergency Room with complaints of TMJ tenderness and jaw pain. A CT scan of your neck was done revealing cervical lymph node swelling, but no other acute findings or abscess. A chest x-ray and chest CT scan was done and normal. You were given IV pain medication and IV steroids. Your white blood cell count increased today that we suspect is likely related to your swelling versus infection. Dr. Rome, the maxillofacial oral surgeon came to see you on 05/08 and suggested that your have acute myofacial pain syndrome related to tightened muscles and quick onset. Based on his evaluation, your IV steroids were discontinued and you were started on two new medications including: Cyclobenazaprine 10mg three times daily and ibuprofen 600 mg by mouth every eight hours. It was also suggested that you alternate using warm/cool compress and follow a soft diet for one month. See below for additional recommendations from Dr. Rome. You will be prescribed the following medications upon discharge: 1. Flexeril 2. Ibuprofen 3. Physical Therapy (script) Your test came back positive for Anaplasma which is a tick borne illness. You will complete an antibiotic, doxycycline for this. You are being prescribed a narcotic pain medication. Absolutely NO DRIVING while taking this medication. Do not take more than 6 tablets in one day. It is also recommended that you utilize over the counter stool softeners when using narcotic as this medication will cause constipation. It is recommended that your purchase over the counter Ibuprofen 600mg to take 3x daily. Do not take this with your Celebrex. Incidental finding on brain MRI was a 13 mm meningioma. This is a small tumor that is benign on your brain. Your primary care Doctor will follow this with the use of follow up MRIs. Please contact your EYE DOCTOR upon discharge for a follow up appointment to address the, "floaters and blurry vision." If you develop red eye, painful eye, drainage from your eye or pus from your eye please come back to the ED immediately. Also if you develop any transient loss of vision please come back to ED immediately. Your blood pressure was elevated during your hospital stay. Please monitor this twice daily when you get home and keep a log of this. Take this log with you to your primary care provider. Total Time Total Time Spent Total Time Spent (In Minutes): 45 minutes Supervising Physician Co-Signing Physician Notes Patient seen and examined independently. Discussed with the provider. Patient reports some improvement in her pain. Pain Mx evaluated, pt can f/u w/ OP Pain Mx if desired. Lyme and anaplasma positive Patient currently on ceftriaxone MRI brain with and without contrast did not show any enhancement suggestive of meningitis. Found to have incidental 13 mm meningioma. Will need follow-up with PCP with MRI brain in 6 months. Pt has been made aware. Infectious disease input appreciated. Pain management did TPI. Pt is hemodynamically stable and would like to go home. Pt has been explained at bedside, if there is painful eye movement, erythematous conjunctiva, purulent drainage in the eyes, any infectious around mouth/nose/eyes; pt to report to pcp office or emergency immediately. Pt advised to f/u w/ ophthalmology in a week time of discharge. I have reviewed the advanced practitioner's documentation, and I agree with, and take responsibility for the plan of care I spent a total of 20 minutes coordinating, documenting, and providing care for this patient excluding time spent in the performance of separately billed services. All of the aforementioned completed while collaborating with the assigned advanced practitioner for a full treatment plan
== END 2024-05-12 18:49 | disposition home or self-care (01) | DRG 867 ==
LOC: ED 00:58 → INTOOBSV 11:33 → SUATTDRO 11:33 → EDINP 11:33 → 2N 14:08 → 3N 05-08 14:49 → 2N 05-09 14:42
DX: M79.7 Fibromyalgia; Z86.711 Personal history of pulmonary embolism; Z88.5 Allergy status to narcotic agent; R68.84 Jaw pain; I10 Essential (primary) hypertension; M96.1 Postlaminectomy syndrome, not elsewhere classified; M25.69 Stiffness of other specified joint, not elsewhere classified; M54.2 Cervicalgia; A79.82 Anaplasmosis [A. phagocytophilum]; Z96.82 Presence of neurostimulator; T42.4X5A Adverse effect of benzodiazepines, initial encounter; T39.8X5A Adverse effect of other nonopioid analgesics and antipyretics, not elsewhere classified, initial encounter; K59.00 Constipation, unspecified; A69.20 Lyme disease, unspecified; M79.18 Myalgia, other site; Z83.3 Family history of diabetes mellitus; D32.9 Benign neoplasm of meninges, unspecified; H53.8 Other visual disturbances; M13.0 Polyarthritis, unspecified; M26.623 Arthralgia of bilateral temporomandibular joint; J96.01 Acute respiratory failure with hypoxia; Y92.238 Other place in hospital as the place of occurrence of the external cause; R59.0 Localized enlarged lymph nodes; T40.2X5A Adverse effect of other opioids, initial encounter; K21.9 Gastro-esophageal reflux disease without esophagitis